=== PATIENT | male | born 1960 | race Hispanic/Latino ===

== ENCOUNTER 2018-08-15 17:46 | Inpatient (IN) | payer BC ==
--- NOTE | 2018-08-15 18:27 | Emergency Department Report ---
Blank Doc - Documentation Documentation: pt states he was sent by PCP, Dr. Pedrito Sheehan states he is having fluid retention in the scrotum and the BLE edema that worsened in the last few days +testicular pain PMHx DM, HTN, macular degeneration non smoker non drinker no drug use
[2018-08-15 19:17] LABS: Basophils # (Auto) 0.1 K/mm3 (0.0-0.1); Basophils % (Auto) 1.1 % (0.0-1.8); Eosinophils # (Auto) 0.3 K/mm3 (0.0-0.4); Eosinophils % (Auto) 5.9 % (0.0-4.3); Hematocrit 30.1 % (35.5-45.6); Hemoglobin 9.8 gm/dl (11.8-15.2); Lymphocytes # (Auto) 1.2 K/mm3 (1.2-5.4); Lymphocytes % (Auto) 22.9 % (13.4-35.0); Mean Corpuscular HGB Conc 32 % (32-34); Mean Corpuscular Volume 84 fl (84-94); Monocytes # (Auto) 0.6 K/mm3 (0.0-0.8); Monocytes % (Auto) 10.7 % (0.0-7.3); Platelet Count 143 K/mm3 (140-440); Red Blood Count 3.61 M/mm3 (3.65-5.03); Red Cell Distribution Width 16.8 % (13.2-15.2)
[2018-08-15 19:41] LABS: Color,Urine Yellow (Yellow)
[2018-08-15 19:42] LABS: Bilirubin,Urine NEG (Negative); Blood,Urine NEG (Negative); Mucus,Urine FEW /HPF; Urobilinogen,Urine < 2.0 mg/dL (<2.0)
[2018-08-15 19:44] LABS: Albumin 3.2 g/dL (3.9-5)
[2018-08-15 19:51] LABS: Protein,Urine >500 mg/dL (Negative)
--- NOTE | 2018-08-15 20:23 | Ultrasound Report ---
PROCEDURE: US TESTICULAR DOPPLER COMP TECHNIQUE: Real-time alvarez-scale and color flow Doppler sonography in multiple planes of the scrotum, testicles, and epididymes was performed. Velocity spectral waveform analysis and color Doppler imagi ng of the arterial inflow and venous outflow of the testicles was performed with image documentation. HISTORY: scrotal swelling and pain COMPARISONS: None . FINDINGS: RIGHT TESTICLE: Size: 4.2 x 3.0 x 2.8 cm . Appearance: Normal size and echotexture . Arterial blood flow: Normal spectral waveforms, flow velocities and color flow images.. Venous blood flow: Normal spectral waveforms and color flow images. Right epididymis: Normal size and echotexture . Hydrocele: None . LEFT TESTICLE Size: 4.3 x 2.3 x 3.1 cm . Appearance: Normal size and echotexture . Arterial blood flow: Normal spectral waveforms, flow velocities and color flow images.. Venous blood flow: Normal spectral waveforms and color flow images. Left epididymis: Normal size and echotexture . Hydrocele: None . There is diffuse thickening of scrotal skin and subcutaneous tissues. A focal fluid collection is not identified. IMPRESSION: Thickened scrotal lin. No testicular abnormality.. This document is electronically signed by Eliezer Brand MD., Aug 15 2018 08:21:24 PM ET
--- NOTE | 2018-08-15 21:14 | Emergency Department Report ---
ED Shortness of Breath HPI - General Chief Complaint: Medical Clearance Stated Complaint: DIABETIC/WATER RETENTION Time Seen by Provider: 08/15/18 21:01 Source: patient Mode of arrival: Ambulatory Limitations: No Limitations - History of Present Illness Initial Comments: Patient is a 58-year-old male presents to emergency room with complaints of shortness of breath and dyspnea on exertion. Patient states he feels like he's feeling of fluids. Patient states he is now swelling from his entire legs all around to his abdomen. Patient states his primary care sent him here. Patient states his symptoms are worse with exertion and better with rest. Patient states his legs are chronically swollen but now they are worsening. Patient denies chest pain and chest pressure. She denies fever chills. Patient denies headache. Patient denies blurry vision. MD Complaint: shortness of breath -: Sudden - Related Data Home Medications Medication Instructions Recorded Confirmed Last Taken Acetaminophen [Acetaminophen ER] 650 mg PO Q8HR PRN 08/16/18 08/16/18 Unknown Amlodipine Besylate/Benazepril 1 each PO QDAY 08/16/18 08/16/18 Unknown [Lotrel 10-40 mg] AtorvaSTATin [Lipitor] 40 mg PO QHS 08/16/18 08/16/18 Unknown Cholecalciferol (Vitamin D3) 5,000 unit PO DAILY 08/16/18 08/16/18 Unknown [Vitamin D3 5,000 UNIT] Doxylamine Succinate [Unisom] 25 mg PO QHS 08/16/18 08/16/18 Unknown Gabapentin [Neurontin] 300 mg PO QHS 08/16/18 08/16/18 Unknown Insulin Regular, Human [Humulin R 90 unit SQ BID 08/16/18 08/16/18 Unknown U-500 Kwikpen] Loratadine [Claritin] 10 mg PO DAILY PRN 08/16/18 08/16/18 Unknown Melatonin [Melatonin 3MG TAB] 3 mg PO QHS 08/16/18 08/16/18 Unknown Niacin [Niacor] 500 mg PO DAILY 08/16/18 08/16/18 Unknown Omeprazole 20 mg PO DAILY PRN 08/16/18 08/16/18 Unknown Triamcinolone Acetonide [Nasacort 10.8 ml NS DAILY 08/16/18 08/16/18 Unknown SPRAY] Allergies Allergy/AdvReac Type Severity Reaction Status Date / Time canagliflozin [From Invokana] Allergy Unknown Verified 08/15/18 17:49 IV CONTRAST DYE Allergy Unknown Uncoded 08/15/18 17:49 ED Review of Systems ROS: Stated complaint: DIABETIC/WATER RETENTION Other details as noted in HPI Constitutional: denies: chills, fever Eyes: denies: eye pain, eye discharge, vision change ENT: denies: ear pain, throat pain Respiratory: shortness of breath. denies: cough, wheezing Cardiovascular: dyspnea on exertion. denies: chest pain, palpitations Endocrine: no symptoms reported Gastrointestinal: denies: abdominal pain, nausea, diarrhea Genitourinary: denies: urgency, dysuria Musculoskeletal: denies: back pain, joint swelling, arthralgia Skin: denies: rash, lesions Neurological: denies: headache, weakness, paresthesias Psychiatric: denies: anxiety, depression Hematological/Lymphatic: denies: easy bleeding, easy bruising ED Past Medical Hx - Past Medical History Previous Medical History?: Yes Hx Hypertension: Yes Hx Heart Attack/AMI: No Hx Congestive Heart Failure: No Hx Diabetes: Yes Hx Deep Vein Thrombosis: No Hx Pulmonary Embolism: No Hx Renal Disease: Yes (CKD3) Additional medical history: WATER RENTENTION - Surgical History Past Surgical History?: No - Family History Family history: no significant - Social History Smoking Status: Never Smoker Substance Use Type: None - Medications Home Medications: Home Medications Medication Instructions Recorded Confirmed Last Taken Type Acetaminophen [Acetaminophen ER] 650 mg PO Q8HR PRN 08/16/18 08/16/18 Unknown History Amlodipine Besylate/Benazepril 1 each PO QDAY 08/16/18 08/16/18 Unknown History [Lotrel 10-40 mg] AtorvaSTATin [Lipitor] 40 mg PO QHS 08/16/18 08/16/18 Unknown History Cholecalciferol (Vitamin D3) 5,000 unit PO DAILY 08/16/18 08/16/18 Unknown History [Vitamin D3 5,000 UNIT] Doxylamine Succinate [Unisom] 25 mg PO QHS 08/16/18 08/16/18 Unknown History Gabapentin [Neurontin] 300 mg PO QHS 08/16/18 08/16/18 Unknown History Insulin Regular, Human [Humulin R 90 unit SQ BID 08/16/18 08/16/18 Unknown History U-500 Kwikpen] Loratadine [Claritin] 10 mg PO DAILY PRN 08/16/18 08/16/18 Unknown History Melatonin [Melatonin 3MG TAB] 3 mg PO QHS 08/16/18 08/16/18 Unknown History Niacin [Niacor] 500 mg PO DAILY 08/16/18 08/16/18 Unknown History Omeprazole 20 mg PO DAILY PRN 08/16/18 08/16/18 Unknown History Triamcinolone Acetonide [Nasacort 10.8 ml NS DAILY 08/16/18 08/16/18 Unknown History SPRAY] ED Physical Exam - General Limitations: No Limitations General appearance: alert, in no apparent distress - Head Head exam: Present: atraumatic, normocephalic - Eye Eye exam: Present: normal appearance - ENT ENT exam: Present: mucous membranes moist - Neck Neck exam: Present: normal inspection - Respiratory Respiratory exam: Present: normal lung sounds bilaterally. Absent: respiratory distress, wheezes, rales, chest wall tenderness - Cardiovascular Cardiovascular Exam: Present: regular rate, normal rhythm. Absent: systolic murmur, diastolic murmur, rubs, gallop - GI/Abdominal GI/Abdominal exam: Present: soft, normal bowel sounds. Absent: distended, tenderness, guarding - Rectal Rectal exam: Present: deferred - Extremities Exam Extremities exam: Present: normal inspection (except for edema.), pedal edema ( peripheral edema extending all the way up to his lower abdomen and consistent with anasarca.) - Back Exam Back exam: Present: normal inspection - Neurological Exam Neurological exam: Present: alert, oriented X3 - Psychiatric Psychiatric exam: Present: normal affect, normal mood - Skin Skin exam: Present: warm, dry, intact, normal color. Absent: rash ED Course Vital Signs 08/15/18 08/15/18 08/15/18 18:23 21:16 21:30 Temperature 98.2 F Pulse Rate 92 H 79 76 Respiratory 16 17 20 Rate Blood Pressure 181/85 Blood Pressure 191/87 [Left] O2 Sat by Pulse 96 96 94 Oximetry 08/15/18 08/15/18 08/15/18 22:00 22:30 23:00 Temperature Pulse Rate 76 83 79 Respiratory 19 14 18 Rate Blood Pressure 192/100 213/100 170/74 Blood Pressure [Left] O2 Sat by Pulse 93 95 96 Oximetry 08/15/18 23:10 Temperature Pulse Rate Respiratory 18 Rate Blood Pressure Blood Pressure [Left] O2 Sat by Pulse 100 Oximetry - Reevaluation(s) Reevaluation #1: Discussed all results with patient. Patient will be admitted to the hospitalist service. Patient agrees to plan of care. 08/16/18 02:27 - Consultations Consultation #1: 08/16/18 02:27 Hospitalist consulted for admission. Hospitalist to admit patient. Hospitalist to assume care patient. ED Medical Decision Making - Lab Data Result diagrams: 08/15/18 18:54 08/15/18 18:54 - EKG Data -: EKG Interpreted by [facility] EKG shows normal: sinus rhythm, axis, intervals, QRS complexes, ST-T waves Rate: normal - Radiology Data Radiology results: report reviewed PROCEDURE: XR CHEST 1V AP TECHNIQUE: Chest radiograph single view. HISTORY: sob COMPARISONS: None . FINDINGS: Heart: Normal. Mediastinum/Vessels: Normal. Lungs/Pleural space: Left lower lung and left costophrenic angle are obscured by the cardiac shadow right lung and right pleural spaces are clear. Bony thorax: No acute osseous abnormality. Life support devices: None. IMPRESSION: Left lower lung and left costophrenic angle are obscured by the cardiac shadow. Any underlying infiltrates or left pleural effusion cannot be excluded. A two-view chest study is recommended whenever the patient's condition permits.. - Medical Decision Making Patient is a 58-year-old male transferred to shortness of breath dyspnea on exertion. Patient found to have an elevated d-dimer and CK 83 on labs. Patient also clinically anemic. For the elevated d-dimer patient is going to have a nuclear study. Patient's risk is low. Patient was admitted to the hospitalist service. Patient clinical findings consistent with new onset CHF and anasarca. Patient will require cardiology consult. - Differential Diagnosis CHF. Anasarca. HANSEN. SOB. CK 80 Critical Care Time: Yes Critical care attestation.: If time is entered above; I have spent that time in minutes in the direct care of this critically ill patient, excluding procedure time. Critical Care Time: 35 minutes ED Disposition Clinical Impression: SOB (shortness of breath), HANSEN (dyspnea on exertion), Anasarca, Elevated d- dimer, New onset of congestive heart failure, Essential hypertension CKD (chronic kidney disease) Qualifiers: Chronic kidney disease stage: unspecified stage Qualified Code(s): N18.9 - Zoology Professor roberto kidney disease, unspecified CHF (congestive heart failure) Qualifiers: Heart failure type: unspecified Heart failure chronicity: acute Qualified Code(s): I50.9 - Heart failure, unspecified Anemia Qualifiers: Anemia type: unspecified type Qualified Code(s): D64.9 - Anemia, unspecified Disposition: 09 OP ADMIT IP TO THIS HOSP Is pt being admited?: Yes Does the pt Need Aspirin: No Condition: Critical Instructions: Hypertension (ED) Time of Disposition: 02:27
--- NOTE | 2018-08-15 22:26 | XRay Report ---
PROCEDURE: XR CHEST 1V AP TECHNIQUE: Chest radiograph single view. HISTORY: sob COMPARISONS: None . FINDINGS: Heart: Normal. Mediastinum/Vessels: Normal. Lungs/Pleural space: Left lower lung and left costophrenic angle are obscured by the cardiac shadow right lung and right pleural spaces are clear. Bony thorax: No acute osseous abnormality. Life support devices: None. IMPRESSION: Left lower lung and left costophrenic angle are obscured by the cardiac shadow. Any unde rlying infiltrates or left pleural effusion cannot be excluded. A two-view chest study is recommended whenever the patient's condition permits.. This document is electronically signed by Eliezer Brand MD., Aug 15 2018 10:25:00 PM ET
[2018-08-16] MEDS ORDERED: LASIX IV ONE (02:26)
[2018-08-16] MEDS ORDERED: ZOFRAN IV PRN (03:07)
[2018-08-16] MEDS ORDERED: PROVENTIL IH PRN (03:07)
[2018-08-16] MEDS ORDERED: SODIUM CHLORIDE FLUSH SYRINGE 10 ML IV PRN (03:07)
[2018-08-16] MEDS ORDERED: XANAX PO PRN (03:07)
[2018-08-16] MEDS ORDERED: NITROSTAT SL PRN (03:07)
[2018-08-16] MEDS ORDERED: D50W (25GM) Syringe IV PRN (03:13)
--- NOTE | 2018-08-16 03:33 | History and Physical Report ---
<LANEY NEGRO - Last Filed: 08/16/18 03:34> History of Present Illness Date of examination: 08/16/18 Date of admission: 08/16/2018 Chief complaint: Dyspnea with exertion and bilateral lower extremity edema History of present illness: 58-year-old male with history of hypertension, diabetes, HLD, CKD stage III who presents to [facility] ED with c/o bilateral lower extremity swelling and shortness of breath. States that he feels like "fluid he has fluid building up" making it hard for him to breathe. According to patient's swelling started a few months ago and has progressively gotten worse over the past 3 days. The swelling is now includes abdomen, scrotum, and bilateral lower extremities.He attributes swelling to not taking by mouth Lasix because he was concerned about his chronic kidney disease. He c/o worsening dyspnea with activity for the past 3 days. Pt states that he is unable to walk more than 10 feet without becoming SOB and needing to take a rest to catch his breath. Pt has wound to Rt great toe, Rt calf and Lt heal. He goes to [place] [facility] wound care clinic every 2-3 weeks for evaluation and treatment. Admits abdominal swelling, scrotum edema, BLE edema, SOB with activity. Denies fever, cough, hemoptysis, hematemesis, nausea, vomiting, diarrhea, headache, and chest pain. Past History Past Medical History: diabetes, hypertension, other (CKD 3) Past Surgical History: No surgical history Social history: no significant social history Family history: no significant family history Medications and Allergies Allergies Allergy/AdvReac Type Severity Reaction Status Date / Time canagliflozin [From Invokana] Allergy Unknown Verified 08/15/18 17:49 IV CONTRAST DYE Allergy Unknown Uncoded 08/15/18 17:49 Home Medications Medication Instructions Recorded Confirmed Last Taken Type Acetaminophen [Acetaminophen ER] 650 mg PO Q8HR PRN 08/16/18 08/16/18 Unknown History Amlodipine Besylate/Benazepril 1 each PO QDAY 08/16/18 08/16/18 Unknown History [Lotrel 10-40 mg] AtorvaSTATin [Lipitor] 40 mg PO QHS 08/16/18 08/16/18 Unknown History Cholecalciferol (Vitamin D3) 5,000 unit PO DAILY 08/16/18 08/16/18 Unknown History [Vitamin D3 5,000 UNIT] Doxylamine Succinate [Unisom] 25 mg PO QHS 08/16/18 08/16/18 Unknown History Gabapentin [Neurontin] 300 mg PO QHS 08/16/18 08/16/18 Unknown History Insulin Regular, Human [Humulin R 90 unit SQ BID 08/16/18 08/16/18 Unknown History U-500 Kwikpen] Loratadine [Claritin] 10 mg PO DAILY PRN 08/16/18 08/16/18 Unknown History Melatonin [Melatonin 3MG TAB] 3 mg PO QHS 08/16/18 08/16/18 Unknown History Niacin [Niacor] 500 mg PO DAILY 08/16/18 08/16/18 Unknown History Omeprazole 20 mg PO DAILY PRN 08/16/18 08/16/18 Unknown History Triamcinolone Acetonide [Nasacort 10.8 ml NS DAILY 08/16/18 08/16/18 Unknown History SPRAY] Active Meds: Active Medications Acetaminophen (Tylenol) 650 mg PO Q4H PRN PRN Reason: Pain MILD(1-3)/Fever >100.5/FRAIRE Albuterol (Proventil) 2.5 mg IH Q4HRT PRN PRN Reason: Shortness Of Breath Alprazolam (Xanax) 0.125 mg PO Q8H PRN PRN Reason: Agitation Aspirin (Baby Aspirin) 81 mg PO QDAY [facility] Atorvastatin Calcium (Lipitor) 40 mg PO QHS [facility] Clopidogrel Bisulfate (Plavix) 75 mg PO QDAY [facility] Dextrose (D50w (25gm) Syringe) 50 ml IV PRN PRN PRN Reason: Hypoglycemia Docusate Sodium (Colace) 100 mg PO BID [facility] Furosemide (Lasix) 40 mg IV BID@0600,1800 [facility] Gabapentin (Neurontin) 300 mg PO QHS [facility] Heparin Sodium (Porcine) (Heparin) 5,000 unit SUB-Q Q12HR [facility] Insulin Human Lispro (Humalog) 0 unit SUB-Q ACHS [facility]; Protocol Insulin Human Regular (Humulin R) 5 units SUB-Q AC [facility] Miscellaneous Medication (Amlodipine Besylate/Benazepril [Lotrel 10-40 Mg]) 1 each PO QDAY [facility] Miscellaneous Medication (Cholecalciferol (Vitamin D3) [Vitamin D3 5,000 Unit]) 5,000 unit PO DAILY [facility] Nitroglycerin (Nitrostat) 0.4 mg SL .Q5MIN PRN PRN Reason: Chest Pain Ondansetron HCl (Zofran) 4 mg IV Q8H PRN PRN Reason: Nausea And Vomiting Oxycodone/Acetaminophen (Percocet 5/325) 1 tab PO Q6H PRN PRN Reason: Pain, Moderate (4-6) Potassium Chloride (K-Dur) 40 meq PO BID [facility] Sodium Chloride (Sodium Chloride Flush Syringe 10 Ml) 10 ml IV BID [facility] Sodium Chloride (Sodium Chloride Flush Syringe 10 Ml) 10 ml IV PRN PRN PRN Reason: LINE FLUSH Review of Systems All systems: negative (reviewed and no additional remarkable complaints except as noted below) Cardiovascular: shortness of breath, leg edema (bilateral leg ) Respiratory: dyspnea on exertion Genitourinary Male: other (scrotal edema) Exam - Physical Exam Narrative exam: Physical exam General appearance: Present: No acute distress, obese, pleasant, middle-aged adult male, oriented 3 - EENT Eyes: Present: PERRL, EOM intact ENT: hearing intact, normal dentition - Neck Neck: Present: supple, normal ROM - Respiratory Respiratory effort: Labored on supplemental oxygen Respiratory: Faint crackles in bases - Cardiovascular Heart rate: 76 (bpm) Rhythm: Sinus rhythm regular Heart Sounds: Present: S1 & S2. Absent: rub, click - Extremities Extremities: no ischemia, pulses intact, abnormal (bilateral lower extremity pitting edema) - Peripheral Assessment Peripheral Pulses: within normal limits - Abdominal General gastrointestinal: Obese, pannus, soft, non-tender, normal bowel sounds Genitourinary - Scrotal edema - Integumentary Integumentary: Present: Discoloration to bilateral lower extremity, right great toe, right calf, left heel wound, warm, dry - Musculoskeletal Musculoskeletal: generalized weakness - Psychiatric Psychiatric: Slightly anxious, cooperative - Constitutional Vitals: Temp Pulse Resp BP Pulse Ox 98.2 F 88 17 177/83 99 08/15/18 18:23 08/16/18 02:30 08/16/18 02:30 08/16/18 02:30 08/16/18 02:30 Results - Labs CBC & Chem 7: 08/15/18 18:54 08/15/18 18:54 Labs: Laboratory Last Values WBC 5.4 K/mm3 (4.5-11.0) 08/15/18 18:54 RBC 3.61 M/mm3 (3.65-5.03) L 08/15/18 18:54 Hgb 9.8 gm/dl (11.8-15.2) L 08/15/18 18:54 Hct 30.1 % (35.5-45.6) L 08/15/18 18:54 MCV 84 fl (84-94) 08/15/18 18:54 MCH 27 pg (28-32) L 08/15/18 18:54 MCHC 32 % (32-34) 08/15/18 18:54 RDW 16.8 % (13.2-15.2) H 08/15/18 18:54 Plt Count 143 K/mm3 (140-440) 08/15/18 18:54 Lymph % (Auto) 22.9 % (13.4-35.0) 08/15/18 18:54 [place] % (Auto) 10.7 % (0.0-7.3) H 08/15/18 18:54 Eos % (Auto) 5.9 % (0.0-4.3) H 08/15/18 18:54 Baso % (Auto) 1.1 % (0.0-1.8) 08/15/18 18:54 Lymph # 1.2 K/mm3 (1.2-5.4) 08/15/18 18:54 [place] # 0.6 K/mm3 (0.0-0.8) 08/15/18 18:54 Eos # 0.3 K/mm3 (0.0-0.4) 08/15/18 18:54 Baso # 0.1 K/mm3 (0.0-0.1) 08/15/18 18:54 Seg Neutrophils % 59.4 % (40.0-70.0) 08/15/18 18:54 Seg Neutrophils # 3.2 K/mm3 (1.8-7.7) 08/15/18 18:54 463.24 ng/mlDDU (0-234) H 08/15/18 21:24 Sodium 144 mmol/L (137-145) 08/15/18 18:54 Potassium 4.3 mmol/L (3.6-5.0) 08/15/18 18:54 Chloride 107.7 mmol/L (98-107) H 08/15/18 18:54 Carbon Dioxide 23 mmol/L (22-30) 08/15/18 18:54 18 mmol/L 08/15/18 18:54 BUN 25 mg/dL (9-20) H 08/15/18 18:54 2.5 mg/dL (0.8-1.5) H 08/15/18 18:54 Estimated GFR 27 ml/min 08/15/18 18:54 10 % 08/15/18 18:54 Glucose 159 mg/dL (75-100) H 08/15/18 18:54 POC Glucose 124 (70-105) H 08/15/18 18:02 Calcium 9.0 mg/dL (8.4-10.2) 08/15/18 18:54 0.40 mg/dL (0.1-1.2) 08/15/18 18:54 AST 25 units/L (5-40) 08/15/18 18:54 ALT 15 units/L (7-56) 08/15/18 18:54 74 units/L (35-129) 08/15/18 18:54 340 units/L (55-170) H 08/15/18 21:24 CK-MB (CK-2) 5.0 ng/mL (0.0-4.0) H 08/15/18 21:24 CK-MB (CK-2) Rel Index 1.4 (0-4) 08/15/18 21:24 0.026 ng/mL (0.00-0.029) 08/15/18 21:24 NT-Pro-B Natriuret Pep 850.0 pg/mL (0-900) 08/15/18 18:54 6.7 g/dL (6.3-8.2) 08/15/18 18:54 3.2 g/dL (3.9-5) L 08/15/18 18:54 0.9 % 08/15/18 18:54 Yellow (Yellow) 08/15/18 18:47 Clear (Clear) 08/15/18 18:47 6.0 (5.0-7.0) 08/15/18 18:47 Ur Specific [place] 1.014 (1.003-1.030) 08/15/18 18:47 >500 mg/dL (Negative) 08/15/18 18:47 Neg mg/dL (Negative) 08/15/18 18:47 Neg mg/dL (Negative) 08/15/18 18:47 Neg (Negative) 08/15/18 18:47 Neg (Negative) 08/15/18 18:47 Neg (Negative) 08/15/18 18:47 < 2.0 mg/dL (<2.0) 08/15/18 18:47 Ur Leukocyte Esterase Neg (Negative) 08/15/18 18:47 1.0 /HPF (0.0-6.0) 08/15/18 18:47 1.0 /HPF (0.0-6.0) 08/15/18 18:47 U Epithel Cells (Auto) 1.0 /HPF (0-13.0) 08/15/18 18:47 Few /HPF 08/15/18 18:47 - Imaging and Cardiology EKG: image reviewed (sinus rhythm at 76 bpm) Chest x-ray: pending (Repeat 2v CXR pending), report reviewed (Initial CXR Left lower lung and left costophrenic angle are obscured by the cardiac shadow. Any underlying infiltrates or left pleural effusion cannot be excluded), image reviewed Imaging and Cardiology: Testicular ultrasound: Impression: Thickened scrotal lin. No testicular abnormality. Assessment and Plan Assessment and plan: 58-year-old male with history of hypertension, diabetes, HLD, CKD stage III who presents to [facility] ED with c/o bilateral lower extremity swelling and shortness of breath. Pt scrotum is swollen obstructing view of his penis. The swelling goes from abdomen to BLE. Currently patient is on 2L supplemental O2 with saturation of 94%. D-dimer slightly elevated at 463.24. CK-MB elevated at 5.0; troponin negative. Initial CXR was inconclusive; will order 2V CXR for further evaluation. Pt will be admitted to Telemetry unit. Cardiology consulted. Suspicion of new onset Acute CHF Rule out PE Volume overload Anasarca- likely multifactorial to CHF and volume overload CKD3 Hypertensive urgency Hypertension DM HLD Malnutrition mild to moderate Plan: Continue supportive care Continuous telemetry monitoring Repeat 2V CXR pending VQ scan pending Echo pending Cardiology consult pending Start ASA, and Plavix Monitor BP Resume home antihypertensive meds: Norvasc 10mg, lisinopril 40 mg daily IV hydralazine and when necessary POC BG monitoring SSI and scheduled pre-meal coverage HbgA1c pending Monitor BUN/Cr; may consider Nephrology consult if worsening Lasix 40mg BID Resume gabapentin 300 mg nightly Resume Lipitor 40 mg nightly Albuterol when necessary for SOB Continue and wean as tolerated Wound Care consult pending Dietitian consult pending DVT PPX on Heparin Advance Directives: No VTE prophylaxis?: Chemical Plan of care discussed with patient/family: Yes <TIM DÍAZ - Last Filed: 08/27/18 04:35> History of Present Illness Date of admission: 08/16/18 03:07 Medications and Allergies Active Meds: Active Medications Acetaminophen (Tylenol) 650 mg PO Q4H PRN PRN Reason: Pain MILD(1-3)/Fever >100.5/FRAIRE Albuterol (Proventil) 2.5 mg IH Q4HRT PRN PRN Reason: Shortness Of Breath Aspirin (Baby Aspirin) 81 mg PO QDAY [facility] Atorvastatin Calcium (Lipitor) 40 mg PO QHS [facility] Carvedilol (Coreg) 3.125 mg PO BID [facility] Cholecalciferol (Vitamin D3) 5,000 unit PO DAILY [facility] Clopidogrel Bisulfate (Plavix) 75 mg PO QDAY [facility] Dextrose (D50w (25gm) Syringe) 50 ml IV PRN PRN PRN Reason: Hypoglycemia Docusate Sodium (Colace) 100 mg PO BID [facility] Furosemide (Lasix) 40 mg IV BID@0600,1800 [facility] Gabapentin (Neurontin) 300 mg PO QHS [facility] Heparin Sodium (Porcine) (Heparin) 5,000 unit SUB-Q Q12HR [facility] Insulin Human Lispro (Humalog) 0 unit SUB-Q ACHS [facility]; Protocol Insulin Human Regular (Humulin R) 5 units SUB-Q AC [facility] Nitroglycerin (Nitrostat) 0.4 mg SL .Q5MIN PRN PRN Reason: Chest Pain Ondansetron HCl (Zofran) 4 mg IV Q8H PRN PRN Reason: Nausea And Vomiting Oxycodone/Acetaminophen (Percocet 5/325) 1 tab PO Q6H PRN PRN Reason: Pain, Moderate (4-6) Potassium Chloride (K-Dur) 40 meq PO BID [facility] Sodium Chloride (Sodium Chloride Flush Syringe 10 Ml) 10 ml IV BID [facility] Sodium Chloride (Sodium Chloride Flush Syringe 10 Ml) 10 ml IV PRN PRN PRN Reason: LINE FLUSH Exam - Constitutional Vitals: Temp Pulse Resp BP Pulse Ox 98.2 F 88 17 177/83 99 08/15/18 18:23 08/16/18 02:30 08/16/18 02:30 08/16/18 02:30 08/16/18 02:30 Results - Labs CBC & Chem 7: 08/25/18 04:43 08/26/18 04:56 Labs: Laboratory Last Values WBC 5.4 K/mm3 (4.5-11.0) 08/15/18 18:54 RBC 3.61 M/mm3 (3.65-5.03) L 08/15/18 18:54 Hgb 9.8 gm/dl (11.8-15.2) L 08/15/18 18:54 Hct 30.1 % (35.5-45.6) L 08/15/18 18:54 MCV 84 fl (84-94) 08/15/18 18:54 MCH 27 pg (28-32) L 08/15/18 18:54 MCHC 32 % (32-34) 08/15/18 18:54 RDW 16.8 % (13.2-15.2) H 08/15/18 18:54 Plt Count 143 K/mm3 (140-440) 08/15/18 18:54 Lymph % (Auto) 22.9 % (13.4-35.0) 08/15/18 18:54 [place] % (Auto) 10.7 % (0.0-7.3) H 08/15/18 18:54 Eos % (Auto) 5.9 % (0.0-4.3) H 08/15/18 18:54 Baso % (Auto) 1.1 % (0.0-1.8) 08/15/18 18:54 Lymph # 1.2 K/mm3 (1.2-5.4) 08/15/18 18:54 [place] # 0.6 K/mm3 (0.0-0.8) 08/15/18 18:54 Eos # 0.3 K/mm3 (0.0-0.4) 08/15/18 18:54 Baso # 0.1 K/mm3 (0.0-0.1) 08/15/18 18:54 Seg Neutrophils % 59.4 % (40.0-70.0) 08/15/18 18:54 Seg Neutrophils # 3.2 K/mm3 (1.8-7.7) 08/15/18 18:54 463.24 ng/mlDDU (0-234) H 08/15/18 21:24 Sodium 144 mmol/L (137-145) 08/15/18 18:54 Potassium 4.3 mmol/L (3.6-5.0) 08/15/18 18:54 Chloride 107.7 mmol/L (98-107) H 08/15/18 18:54 Carbon Dioxide 23 mmol/L (22-30) 08/15/18 18:54 18 mmol/L 08/15/18 18:54 BUN 25 mg/dL (9-20) H 08/15/18 18:54 2.5 mg/dL (0.8-1.5) H 08/15/18 18:54 Estimated GFR 27 ml/min 08/15/18 18:54 10 % 08/15/18 18:54 Glucose 159 mg/dL (75-100) H 08/15/18 18:54 POC Glucose 124 (70-105) H 08/15/18 18:02 7.4 % (4-6) H 08/16/18 03:37 Calcium 9.0 mg/dL (8.4-10.2) 08/15/18 18:54 0.40 mg/dL (0.1-1.2) 08/15/18 18:54 AST 25 units/L (5-40) 08/15/18 18:54 ALT 15 units/L (7-56) 08/15/18 18:54 74 units/L (35-129) 08/15/18 18:54 340 units/L (55-170) H 08/15/18 21:24 CK-MB (CK-2) 5.0 ng/mL (0.0-4.0) H 08/15/18 21:24 CK-MB (CK-2) Rel Index 1.4 (0-4) 08/15/18 21:24 0.026 ng/mL (0.00-0.029) 08/15/18 21:24 NT-Pro-B Natriuret Pep 850.0 pg/mL (0-900) 08/15/18 18:54 6.7 g/dL (6.3-8.2) 08/15/18 18:54 3.2 g/dL (3.9-5) L 08/15/18 18:54 0.9 % 08/15/18 18:54 Yellow (Yellow) 08/15/18 18:47 Clear (Clear) 08/15/18 18:47 6.0 (5.0-7.0) 08/15/18 18:47 Ur Specific [place] 1.014 (1.003-1.030) 08/15/18 18:47 >500 mg/dL (Negative) 08/15/18 18:47 Neg mg/dL (Negative) 08/15/18 18:47 Neg mg/dL (Negative) 08/15/18 18:47 Neg (Negative) 08/15/18 18:47 Neg (Negative) 08/15/18 18:47 Neg (Negative) 08/15/18 18:47 < 2.0 mg/dL (<2.0) 08/15/18 18:47 Ur Leukocyte Esterase Neg (Negative) 08/15/18 18:47 1.0 /HPF (0.0-6.0) 08/15/18 18:47 1.0 /HPF (0.0-6.0) 08/15/18 18:47 U Epithel Cells (Auto) 1.0 /HPF (0-13.0) 08/15/18 18:47 Few /HPF 08/15/18 18:47 Assessment and Plan Assessment and plan: 58 year old man with history of diabetes, hypertension, hyperlipidemia, obesity, lymphedema, CKD, chronic lower extremity wounds comes to the ER with complaints of worsening leg edema, shortness of breath, HANSEN, PND. he stopped taking his lasix because his kidney function was declining. He also states his scrotum and thighs and belly is swollen. Denies chest pain. Agree with plan as stated above except, hold ACEI, plavix. Check cardiac enzymes, start BB.
--- NOTE | 2018-08-16 04:09 | XRay Report ---
PROCEDURE: XR CHEST ROUTINE 2V TECHNIQUE: PA and lateral chest radiographs were obtained. HISTORY: SOB COMPARISONS: None. FINDINGS: Heart: Normal. Mediastinum/Vessels: Normal. Lungs/Pleural space: Normal. Bony thorax: No acute osseous abnormality. IMPRESSION: Normal examination. This document is electronically signed by Ivelisse Darden DO., Aug 16 2018 04:07:37 AM ET
[2018-08-16] MEDS ORDERED: LASIX IV SCH (06:00)
[2018-08-16 06:06] LABS: Chol/HDL Ratio 3.97 %
[2018-08-16] MEDS: HumaLOG SUB-Q SCH ×4 (07:12→22:20)
[2018-08-16] MEDS: HumuLIN R SUB-Q SCH ×3 (07:12→17:56)
[2018-08-16] MEDS ORDERED: CHOLECALCIFEROL 5000 UNIT PO SCH (10:00)
[2018-08-16] MEDS ORDERED: K-DUR PO SCH (10:00)
[2018-08-16] MEDS ORDERED: AMLODIPINE BESYLATE PO SCH (10:00)
[2018-08-16] MEDS ORDERED: PLAVIX PO SCH (10:00)
[2018-08-16] MEDS ORDERED: BENAZEPRIL PO SCH (10:00)
[2018-08-16] MEDS ORDERED: ZESTRIL PO SCH (10:00)
[2018-08-16] MEDS ORDERED: NORVASC PO SCH (10:00)
--- NOTE | 2018-08-16 10:38 | Consultation ---
History of Present Illness Consult date: 08/16/18 Requesting physician: EMERSON CONNOLLY Consult reason: congestive heart failure History of present illness: 58-year-old male with morbid obesity follows in the [place] clinic for wound care has chronic renal insufficiency hypertension has not been on Lasix for over a month concerned about his kidneys even though as per [place] nephrology may take Lasix patient is having shortness of breath with minimal exertion normally patient states he can walk up by 100 feet with scrotal edema with edema in his legs denies any chest pain nausea vomiting or syncope received Lasix in the emergency room mildly improved Past History Past Medical History: diabetes, hypertension, hyperlipidemia, other (CKD 3) Past Surgical History: No surgical history Social history: no significant social history Family history: no significant family history Medications and Allergies Allergies Allergy/AdvReac Type Severity Reaction Status Date / Time canagliflozin [From Invokana] Allergy Unknown Verified 08/15/18 17:49 IV CONTRAST DYE Allergy Unknown Uncoded 08/15/18 17:49 Home Medications Medication Instructions Recorded Confirmed Last Taken Type Acetaminophen [Acetaminophen ER] 650 mg PO Q8HR PRN 08/16/18 08/16/18 Unknown History Amlodipine Besylate/Benazepril 1 each PO QDAY 08/16/18 08/16/18 Unknown History [Lotrel 10-40 mg] AtorvaSTATin [Lipitor] 40 mg PO QHS 08/16/18 08/16/18 Unknown History Cholecalciferol (Vitamin D3) 5,000 unit PO DAILY 08/16/18 08/16/18 Unknown History [Vitamin D3 5,000 UNIT] Doxylamine Succinate [Unisom] 25 mg PO QHS 08/16/18 08/16/18 Unknown History Gabapentin [Neurontin] 300 mg PO QHS 08/16/18 08/16/18 Unknown History Insulin Regular, Human [Humulin R 90 unit SQ BID 08/16/18 08/16/18 Unknown History U-500 Kwikpen] Loratadine [Claritin] 10 mg PO DAILY PRN 08/16/18 08/16/18 Unknown History Melatonin [Melatonin 3MG TAB] 3 mg PO QHS 08/16/18 08/16/18 Unknown History Niacin [Niacor] 500 mg PO DAILY 08/16/18 08/16/18 Unknown History Omeprazole 20 mg PO DAILY PRN 08/16/18 08/16/18 Unknown History Triamcinolone Acetonide [Nasacort 10.8 ml NS DAILY 08/16/18 08/16/18 Unknown History SPRAY] Active Meds: Active Medications Acetaminophen (Tylenol) 650 mg PO Q4H PRN PRN Reason: Pain MILD(1-3)/Fever >100.5/FRAIRE Albuterol (Proventil) 2.5 mg IH Q4HRT PRN PRN Reason: Shortness Of Breath Aspirin (Baby Aspirin) 81 mg PO QDAY [facility] Atorvastatin Calcium (Lipitor) 40 mg PO QHS [facility] Carvedilol (Coreg) 3.125 mg PO BID [facility] Cholecalciferol (Vitamin D3) 5,000 unit PO DAILY [facility] Dextrose (D50w (25gm) Syringe) 50 ml IV PRN PRN PRN Reason: Hypoglycemia Docusate Sodium (Colace) 100 mg PO BID [facility] Furosemide (Lasix) 40 mg IV BID@0600,1800 [facility] Last Admin: 08/16/18 06:16 Dose: 40 mg Documented by: Gabapentin (Neurontin) 300 mg PO QHS [facility] Heparin Sodium (Porcine) (Heparin) 5,000 unit SUB-Q Q12HR [facility] Insulin Human Lispro (Humalog) 0 unit SUB-Q ACHS [facility]; Protocol Insulin Human Regular (Humulin R) 5 units SUB-Q AC [facility] Nitroglycerin (Nitrostat) 0.4 mg SL .Q5MIN PRN PRN Reason: Chest Pain Ondansetron HCl (Zofran) 4 mg IV Q8H PRN PRN Reason: Nausea And Vomiting Oxycodone/Acetaminophen (Percocet 5/325) 1 tab PO Q6H PRN PRN Reason: Pain, Moderate (4-6) Potassium Chloride (K-Dur) 40 meq PO BID [facility] Sodium Chloride (Sodium Chloride Flush Syringe 10 Ml) 10 ml IV BID [facility] Sodium Chloride (Sodium Chloride Flush Syringe 10 Ml) 10 ml IV PRN PRN PRN Reason: LINE FLUSH Last Admin: 08/16/18 06:17 Dose: 10 ml Documented by: Review of Systems All systems: negative (hpi) Physical Examination Vital Signs Temp Pulse Resp BP Pulse Ox 98.2 F 92 H 16 191/87 96 08/15/18 18:23 08/15/18 18:23 08/15/18 18:23 08/15/18 18:23 08/15/18 18:23 General appearance: no acute distress, well-nourished HEENT: Positive: PERRL, Mucus Membranes Moist Neck: Positive: neck supple, trachea midline Cardiac: Positive: Reg Rate and Rhythm, S1/S2. Negative: Audible Murmur Lungs: Positive: clear to auscultation, Normal Breath Sounds Neuro: Positive: Grossly Intact Abdomen: Positive: Soft, Active Bowel Sounds. Negative: Tender, Distended Male genitourinary: Positive: normal Skin: Positive: Clear Incision: Cardiac Cath Site Musculoskeletal: No Pain, Normal Range of Motion Extremities: Present: normal, edema, +1 Edema, Other (scrotal edema) Results 08/15/18 18:54 08/15/18 18:54 Cardiac Enzymes 08/15/18 08/15/18 Range/Units 18:54 21:24 AST 25 (5-40) units/L CK-MB (CK-2) 5.0 H (0.0-4.0) ng/mL Lipids 08/16/18 Range/Units 03:37 Triglycerides 140 (2-149) mg/dL Cholesterol 147 (50-199) mg/dL HDL Cholesterol 37 L (40-59) mg/dL Cholesterol/HDL Ratio 3.97 % CBC 08/15/18 Range/Units 18:54 WBC 5.4 (4.5-11.0) K/mm3 RBC 3.61 L (3.65-5.03) M/mm3 Hgb 9.8 L (11.8-15.2) gm/dl Hct 30.1 L (35.5-45.6) % Plt Count 143 (140-440) K/mm3 Lymph # 1.2 (1.2-5.4) K/mm3 [place] # 0.6 (0.0-0.8) K/mm3 Eos # 0.3 (0.0-0.4) K/mm3 Baso # 0.1 (0.0-0.1) K/mm3 Comprehensive Metabolic Panel 08/15/18 Range/Units 18:54 Sodium 144 (137-145) mmol/L Potassium 4.3 (3.6-5.0) mmol/L Chloride 107.7 H (98-107) mmol/L Carbon Dioxide 23 (22-30) mmol/L BUN 25 H (9-20) mg/dL Creatinine 2.5 H (0.8-1.5) mg/dL Glucose 159 H (75-100) mg/dL Calcium 9.0 (8.4-10.2) mg/dL AST 25 (5-40) units/L ALT 15 (7-56) units/L Alkaline Phosphatase 74 (35-129) units/L Total Protein 6.7 (6.3-8.2) g/dL Albumin 3.2 L (3.9-5) g/dL - Imaging and Cardiology Echo: report reviewed (2016 normal LV function.Positive bubble study PFO) EKG interpretations - Telemetry EKG Rhythm: Sinus Rhythm (nsr non specific st-t) Assessment and Plan will cont iv lasix, start hydralzine and hold vinnie / arb and follow up echo - Patient Problems (1) Anasarca Current Visit: Yes Status: Acute (2) CHF (congestive heart failure) Current Visit: Yes Status: Acute Qualifiers: Heart failure type: diastolic Heart failure chronicity: acute Qualified Code(s): I50.31 - Acute diastolic (congestive) heart failure (3) CKD (chronic kidney disease) Current Visit: Yes Status: Acute Qualifiers: Chronic kidney disease stage: stage 3 (moderate) Qualified Code(s): N18.3 - Chronic kidney disease, stage 3 (moderate) (4) HANSEN (dyspnea on exertion) Current Visit: Yes Status: Acute (5) Essential hypertension Current Visit: Yes Status: Chronic (6) Hyperlipemia, mixed Current Visit: Yes Status: Chronic (7) Morbid obesity Current Visit: Yes Status: Chronic
[2018-08-16] MEDS: VITAMIN D3 PO SCH (11:10)
[2018-08-16] MEDS: COREG PO SCH ×2 (11:11→22:20)
[2018-08-16] MEDS: COLACE PO SCH ×2 (11:11→22:19)
[2018-08-16] MEDS: BABY ASPIRIN PO SCH (11:11)
[2018-08-16] MEDS: HEPARIN SUB-Q SCH ×2 (11:12→22:20)
--- NOTE | 2018-08-16 11:44 | Consultation ---
History of Present Illness - Reason for Consult Consult date: 08/16/18 acute renal failure - History of Present Illness Mr Prabhakar is a 58-year-old male with history of hypertension, diabetes, HLD, CKD, Morbid obesity who has been admitted to the [facility] with bilateral lower extremity swelling and shortness of breath. Pt says his SHOB is worse with exertion. Pt denies fever, cough, N/V, diarrhea, chest pain. He denies NSAID use. ROS: As in HPI otherwise 12 point review of systems -ve Past History Past Medical History: diabetes, hypertension, hyperlipidemia, other (CKD 3) Past Surgical History: No surgical history Social history: no significant social history Family history: no significant family history Medications and Allergies Allergies Allergy/AdvReac Type Severity Reaction Status Date / Time canagliflozin [From Invokana] Allergy Unknown Verified 08/15/18 17:49 IV CONTRAST DYE Allergy Unknown Uncoded 08/15/18 17:49 Home Medications Medication Instructions Recorded Confirmed Last Taken Type Acetaminophen [Acetaminophen ER] 650 mg PO Q8HR PRN 08/16/18 08/16/18 Unknown History Amlodipine Besylate/Benazepril 1 each PO QDAY 08/16/18 08/16/18 Unknown History [Lotrel 10-40 mg] AtorvaSTATin [Lipitor] 40 mg PO QHS 08/16/18 08/16/18 Unknown History Cholecalciferol (Vitamin D3) 5,000 unit PO DAILY 08/16/18 08/16/18 Unknown History [Vitamin D3 5,000 UNIT] Doxylamine Succinate [Unisom] 25 mg PO QHS 08/16/18 08/16/18 Unknown History Gabapentin [Neurontin] 300 mg PO QHS 08/16/18 08/16/18 Unknown History Insulin Regular, Human [Humulin R 90 unit SQ BID 08/16/18 08/16/18 Unknown History U-500 Kwikpen] Loratadine [Claritin] 10 mg PO DAILY PRN 08/16/18 08/16/18 Unknown History Melatonin [Melatonin 3MG TAB] 3 mg PO QHS 08/16/18 08/16/18 Unknown History Niacin [Niacor] 500 mg PO DAILY 08/16/18 08/16/18 Unknown History Omeprazole 20 mg PO DAILY PRN 08/16/18 08/16/18 Unknown History Triamcinolone Acetonide [Nasacort 10.8 ml NS DAILY 08/16/18 08/16/18 Unknown History SPRAY] Active Meds: Active Medications Acetaminophen (Tylenol) 650 mg PO Q4H PRN PRN Reason: Pain MILD(1-3)/Fever >100.5/FRAIRE Albuterol (Proventil) 2.5 mg IH Q4HRT PRN PRN Reason: Shortness Of Breath Aspirin (Baby Aspirin) 81 mg PO QDAY [facility] Last Admin: 08/16/18 11:11 Dose: 81 mg Documented by: Atorvastatin Calcium (Lipitor) 40 mg PO QHS [facility] Carvedilol (Coreg) 3.125 mg PO BID [facility] Last Admin: 08/16/18 11:11 Dose: 3.125 mg Documented by: Cholecalciferol (Vitamin D3) 5,000 unit PO DAILY [facility] Last Admin: 08/16/18 11:10 Dose: 5,000 unit Documented by: Dextrose (D50w (25gm) Syringe) 50 ml IV PRN PRN PRN Reason: Hypoglycemia Docusate Sodium (Colace) 100 mg PO BID [facility] Last Admin: 08/16/18 11:11 Dose: 100 mg Documented by: Furosemide (Lasix) 40 mg IV BID@0600,1800 [facility] Last Admin: 08/16/18 06:16 Dose: 40 mg Documented by: Gabapentin (Neurontin) 300 mg PO QHS [facility] Heparin Sodium (Porcine) (Heparin) 5,000 unit SUB-Q Q12HR [facility] Last Admin: 08/16/18 11:12 Dose: 5,000 unit Documented by: Hydralazine HCl (Apresoline) 50 mg PO Q8HR [facility] Insulin Human Lispro (Humalog) 0 unit SUB-Q ACHS [facility]; Protocol Last Admin: 08/16/18 07:12 Dose: Not Given Documented by: Insulin Human Regular (Humulin R) 5 units SUB-Q [facility] Last Admin: 08/16/18 07:12 Dose: Not Given Documented by: Nitroglycerin (Nitrostat) 0.4 mg SL .Q5MIN PRN PRN Reason: Chest Pain Ondansetron HCl (Zofran) 4 mg IV Q8H PRN PRN Reason: Nausea And Vomiting Oxycodone/Acetaminophen (Percocet 5/325) 1 tab PO Q6H PRN PRN Reason: Pain, Moderate (4-6) Potassium Chloride (K-Dur) 40 meq PO BID [facility] Last Admin: 08/16/18 11:11 Dose: 40 meq Documented by: Sodium Chloride (Sodium Chloride Flush Syringe 10 Ml) 10 ml IV BID [facility] Sodium Chloride (Sodium Chloride Flush Syringe 10 Ml) 10 ml IV PRN PRN PRN Reason: LINE FLUSH Last Admin: 08/16/18 06:17 Dose: 10 ml Documented by: Exam - Vital Signs Vital signs: Vital Signs Temp Pulse Resp BP Pulse Ox 98.2 F 92 H 16 191/87 96 08/15/18 18:23 08/15/18 18:23 08/15/18 18:23 08/15/18 18:23 08/15/18 18:23 - Physical Exam Narrative exam: GE: AAOX3, Obese HEENT: PERRLA Neck: Supple Chest: Coarse BS BL CVS: RRR Abd: Soft/Obese, BS+ Ext: 2-3 BLE edema Psyche: Appropriate mood Results - Lab Results 08/15/18 18:54 08/15/18 18:54 Most recent lab results Calcium 9.0 mg/dL (8.4-10.2) 08/15/18 18:54 Assessment and Plan Acute kidney injury on CKD: Volume overload: Essential HTN: Diabetes Mellitus type 2: Anemia of chronic disease due to CKD: -Check Urine studies, Renal US -Hold RAAS inhibitors -Diurese with Lasix 40 mg QID IV -Renally dose all meds -Avoid Nephrotoxic meds -Strict I/Os -Titrate BP meds PRN to keep BP <130/80 -Check Iron Panel/Ferritin for ACD, start Epogen -Monitor closely Patrick Fonseca MD [phone]
--- NOTE | 2018-08-16 14:08 | Progress Note ---
Assessment and Plan Assessment and plan: Patient is a 58-year-old male with history of hypertension, diabetes, HLD, CKD stage III who presents to [facility] ED with c/o bilateral lower extremity swelling and shortness of breath. Pt scrotum is swollen obstructing view of his penis. Currently patient is on 2L supplemental O2 with saturation of 94%. D-dimer slightly elevated at 463.24. CK-MB elevated at 5.0; troponin negative. 2v CXR unremarkable normal proBNP BLE and scrotal edema, work up for CHF underway: ECHO pending, treat with Lasix 40mg BID New onset Acute diastolic dysfunction CHF: consult Cardiology Acute on Chronic kidney disease, stage 3: cr is 2.5 unable to get CTA, consult Nephrology Elevated D-Dimer, Rule out PE, V/Q pending Volume overload with significant Proteinuria, ?nephrotic syndrome; Nephrology consulted Anasarca- likely multifactorial to CHF and volume overload Hypertensive urgency DM type 2; ada and statin HLD Malnutrition mild to moderate Right toe pressure ulcer, poa, at least stage 3: local wound care done, consult Wound care for further management Morbid obese, bmi 51.4; membership counselor on lifestyle modification and weight reduction VQ scan pending, I have spoken with the nurse and she will let me know History Interval history: Patient was seen and examined. Follow-up on current diagnosis swelling. No overnight events reported to me. Patient denies any chest pain, nausea/vomiting or severe headaches. Imaging, nursing note, chart, labs and old chart reviewed. Discussed with patient. Hospitalist Physical - Physical exam Narrative exam: Gen: obese bmi 51.4, WDWN, NAD, Awake, Alert, Orientated HEENT: NCAT, EOMI, PERRL, OP Clear Neck: supple, no adenopathy, no thyromegaly, no JVD CVS/Heart: RRR, normal S1S2, pulses present bilaterally Chest/Lungs: CTA B, Symmetrical chest expansion, good air entry bilaterally GI/Abdomen: large pannus, soft, NTND, good bowel sounds, no guarding or rebound /Bladder: scrotal edema, no suprapubic tenderness, no CVA or paraspinal tenderness Extermity/Skin: ble edema, heel ulcer, there is an half dollar size ulcer under right big toe, see admission photos MSK: FROM x 4 Neuro: CN 2-12 grossly intact, no new focal deficits Psych: calm - Constitutional Vitals: Temp Pulse Resp BP Pulse Ox 98.2 F 80 20 170/78 97 08/16/18 05:42 08/16/18 12:39 08/16/18 13:35 08/16/18 05:42 08/16/18 13:35 General appearance: Present: no acute distress, well-nourished Results - Labs CBC & Chem 7: 08/15/18 18:54 08/15/18 18:54 Labs: Laboratory Last Values WBC 5.4 K/mm3 (4.5-11.0) 08/15/18 18:54 RBC 3.61 M/mm3 (3.65-5.03) L 08/15/18 18:54 Hgb 9.8 gm/dl (11.8-15.2) L 08/15/18 18:54 Hct 30.1 % (35.5-45.6) L 08/15/18 18:54 MCV 84 fl (84-94) 08/15/18 18:54 MCH 27 pg (28-32) L 08/15/18 18:54 MCHC 32 % (32-34) 08/15/18 18:54 RDW 16.8 % (13.2-15.2) H 08/15/18 18:54 Plt Count 143 K/mm3 (140-440) 08/15/18 18:54 Lymph % (Auto) 22.9 % (13.4-35.0) 08/15/18 18:54 [place] % (Auto) 10.7 % (0.0-7.3) H 08/15/18 18:54 Eos % (Auto) 5.9 % (0.0-4.3) H 08/15/18 18:54 Baso % (Auto) 1.1 % (0.0-1.8) 08/15/18 18:54 Lymph # 1.2 K/mm3 (1.2-5.4) 08/15/18 18:54 [place] # 0.6 K/mm3 (0.0-0.8) 08/15/18 18:54 Eos # 0.3 K/mm3 (0.0-0.4) 08/15/18 18:54 Baso # 0.1 K/mm3 (0.0-0.1) 08/15/18 18:54 Seg Neutrophils % 59.4 % (40.0-70.0) 08/15/18 18:54 Seg Neutrophils # 3.2 K/mm3 (1.8-7.7) 08/15/18 18:54 463.24 ng/mlDDU (0-234) H 08/15/18 21:24 Sodium 144 mmol/L (137-145) 08/15/18 18:54 Potassium 4.3 mmol/L (3.6-5.0) 08/15/18 18:54 Chloride 107.7 mmol/L (98-107) H 08/15/18 18:54 Carbon Dioxide 23 mmol/L (22-30) 08/15/18 18:54 18 mmol/L 08/15/18 18:54 BUN 25 mg/dL (9-20) H 08/15/18 18:54 2.5 mg/dL (0.8-1.5) H 08/15/18 18:54 Estimated GFR 27 ml/min 08/15/18 18:54 10 % 08/15/18 18:54 Glucose 159 mg/dL (75-100) H 08/15/18 18:54 POC Glucose 179 (70-105) H 08/16/18 12:01 7.4 % (4-6) H 08/16/18 03:37 Calcium 9.0 mg/dL (8.4-10.2) 08/15/18 18:54 0.40 mg/dL (0.1-1.2) 08/15/18 18:54 AST 25 units/L (5-40) 08/15/18 18:54 ALT 15 units/L (7-56) 08/15/18 18:54 74 units/L (35-129) 08/15/18 18:54 340 units/L (55-170) H 08/15/18 21:24 CK-MB (CK-2) 5.0 ng/mL (0.0-4.0) H 08/15/18 21:24 CK-MB (CK-2) Rel Index 1.4 (0-4) 08/15/18 21:24 0.026 ng/mL (0.00-0.029) 08/15/18 21:24 NT-Pro-B Natriuret Pep 850.0 pg/mL (0-900) 08/15/18 18:54 6.7 g/dL (6.3-8.2) 08/15/18 18:54 3.2 g/dL (3.9-5) L 08/15/18 18:54 0.9 % 08/15/18 18:54 Triglycerides 140 mg/dL (2-149) 08/16/18 03:37 Cholesterol 147 mg/dL (50-199) 08/16/18 03:37 88 mg/dL (50-130) 08/16/18 03:37 37 mg/dL (40-59) L 08/16/18 03:37 3.97 % 08/16/18 03:37 Yellow (Yellow) 08/15/18 18:47 Clear (Clear) 08/15/18 18:47 6.0 (5.0-7.0) 08/15/18 18:47 Ur Specific [place] 1.014 (1.003-1.030) 08/15/18 18:47 >500 mg/dL (Negative) 08/15/18 18:47 Neg mg/dL (Negative) 08/15/18 18:47 Neg mg/dL (Negative) 08/15/18 18:47 Neg (Negative) 08/15/18 18:47 Neg (Negative) 08/15/18 18:47 Neg (Negative) 08/15/18 18:47 < 2.0 mg/dL (<2.0) 08/15/18 18:47 Ur Leukocyte Esterase Neg (Negative) 08/15/18 18:47 1.0 /HPF (0.0-6.0) 08/15/18 18:47 1.0 /HPF (0.0-6.0) 08/15/18 18:47 U Epithel Cells (Auto) 1.0 /HPF (0-13.0) 08/15/18 18:47 Few /HPF 08/15/18 18:47 Active Medications - Current Medications Current Medications: Generic Name Dose Route Start Last Admin Trade Name Freq PRN Reason Stop Dose Admin Acetaminophen 650 mg 08/16/18 03:07 Tylenol PO Q4H PRN Pain MILD(1-3)/Fever >100.5/FRAIRE Albuterol 2.5 mg 08/16/18 03:07 Proventil IH Q4HRT PRN Shortness Of Breath Aspirin 81 mg 08/16/18 10:00 08/16/18 11:11 Baby Aspirin PO 81 mg QDAY [facility] Administration Atorvastatin Calcium 40 mg 08/16/18 22:00 Lipitor PO QHS [facility] Carvedilol 3.125 mg 08/16/18 10:00 08/16/18 11:11 Coreg PO 3.125 mg BID [facility] Administration Cholecalciferol 5,000 unit 08/16/18 10:00 08/16/18 11:10 Vitamin D3 PO 5,000 unit DAILY [facility] Administration Dextrose 50 ml 08/16/18 03:13 D50w (25gm) Syringe IV PRN PRN Hypoglycemia Docusate Sodium 100 mg 08/16/18 10:00 08/16/18 11:11 Colace PO 100 mg BID [facility] Administration Epoetin Keon 10,000 unit 08/18/18 13:00 Procrit SUB-Q MOWEFR [facility] Furosemide 40 mg 08/16/18 06:00 08/16/18 06:16 Lasix IV 40 mg BID@0600,1800 [facility] Administration Furosemide 40 mg 08/16/18 18:00 Lasix IV QID [facility] Gabapentin 300 mg 08/16/18 22:00 Neurontin PO QHS [facility] Heparin Sodium (Porcine) 5,000 unit 08/16/18 10:00 08/16/18 11:12 Heparin SUB-Q 5,000 unit Q12HR [facility] Administration Hydralazine HCl 50 mg 08/16/18 14:00 Apresoline PO Q8HR [facility] Insulin Human Lispro 0 unit 08/16/18 07:30 08/16/18 07:12 Humalog SUB-Q Not Given ACHS [facility] Protocol Insulin Human Regular 5 units 08/16/18 07:30 08/16/18 07:12 Humulin R SUB-Q Not Given AC [facility] Nitroglycerin 0.4 mg 08/16/18 03:07 Nitrostat SL .Q5MIN PRN Chest Pain Ondansetron HCl 4 mg 08/16/18 03:07 Zofran IV Q8H PRN Nausea And Vomiting Oxycodone/Acetaminophen 1 tab 08/16/18 03:07 Percocet 5/325 PO Q6H PRN Pain, Moderate (4-6) Sodium Chloride 10 ml 08/16/18 10:00 Sodium Chloride Flush Syringe 10 Ml IV BID [facility] Sodium Chloride 10 ml 08/16/18 03:07 08/16/18 06:17 Sodium Chloride Flush Syringe 10 Ml IV 10 ml PRN PRN Administration LINE FLUSH Nutrition/Malnutrition Assess - Dietary Evaluation Nutrition/Malnutrition Findings: Nutrition Notes Start: 08/16/18 09:25 Freq: Status: Active Protocol: Document 08/16/18 09:25 LP (Rec: 08/16/18 09:27 LP [id number]) Nutrition Notes Need for Assessment generated from: MD Order Initial or Follow up Brief Note Current Diagnosis CKD(stage I-IV),Diabetes Other Pertinent Diagnosis Fluid retention in scrotum and BLE edema, wounds on toe, heel and leg Current Diet Cardiac/consistent CHO Labs/Tests Lasix KDUR A1c 7.4 Subjective/Other Information Consult for malnutrition. Pt not in room at time of visit. Nutrition Intervention Follow-Up By: 08/19/18 Additional Comments Follow for assessment needs
[2018-08-16 15:06] LABS: Iron 30 ug/dL (49-181); Total Iron Binding Capacity 352 mcg/dL (250-450)
[2018-08-16] MEDS: PERCOCET 5/325 PO PRN (16:39)
--- NOTE | 2018-08-16 17:06 | Ultrasound Report ---
PROCEDURE: US RENAL BILAT TECHNIQUE: Transverse longitudinal sonograms obtained with alvarez scale sonography. HISTORY: tito COMPARISONS: None FINDINGS: Right kidney measures 9.1 x 4.1 x 4.5 cm. Cortex measures 0.8 cm. Increased echogenicity. No hydronep hrosis. Left kidney measures 10.9 x 4.5 x 5.5 cm. Cortex measures 1 cm. Increased echogenicity. No hydronephr osis. Limited visualization of the kidneys secondary to body habitus. IMPRESSION: Kidneys demonstrate cortical thinning and increased echogenicity compatible with chronic renal diseas e. No hydronephrosis. Limited visualization. If further evaluation warranted to exclude calculus or other pathology, CT sug gested.. This document is electronically signed by Ashkan Cloud MD., Aug 16 2018 05:04:48 PM ET
[2018-08-16] MEDS: APRESOLINE PO SCH ×2 (17:52→22:19)
[2018-08-16] MEDS: LASIX IV SCH ×2 (18:46→22:19)
[2018-08-16] MEDS: SODIUM CHLORIDE FLUSH SYRINGE 10 ML IV SCH ×2 (18:46→22:20)
[2018-08-16] MEDS: NEURONTIN PO SCH (22:19)
[2018-08-17 04:38] LABS: Bacteria,Urine 1+ /HPF (Negative); Bilirubin,Urine NEG (Negative); Blood,Urine NEG (Negative); Color,Urine Straw (Yellow); Urobilinogen,Urine < 2.0 mg/dL (<2.0); WBC,Urine < 1.0 /HPF (0.0-6.0)
[2018-08-17 04:45] LABS: Creatinine,Urine 22.4 mg/dL (0.1-20.0); Protein/Creatinine Ratio,Urine 3.53
[2018-08-17] MEDS: APRESOLINE PO SCH ×3 (05:59→21:50)
[2018-08-17 08:15] LABS: Basophils # (Auto) 0.1 K/mm3 (0.0-0.1); Basophils % (Auto) 1.1 % (0.0-1.8); Eosinophils # (Auto) 0.3 K/mm3 (0.0-0.4); Eosinophils % (Auto) 6.6 % (0.0-4.3); Hematocrit 31.5 % (35.5-45.6); Hemoglobin 10.3 gm/dl (11.8-15.2); Lymphocytes # (Auto) 1.3 K/mm3 (1.2-5.4); Lymphocytes % (Auto) 26.6 % (13.4-35.0); Mean Corpuscular HGB Conc 33 % (32-34); Mean Corpuscular Volume 82 fl (84-94); Monocytes # (Auto) 0.7 K/mm3 (0.0-0.8); Platelet Count 143 K/mm3 (140-440); Red Blood Count 3.83 M/mm3 (3.65-5.03); Red Cell Distribution Width 16.8 % (13.2-15.2)
[2018-08-17 08:37] LABS: Calcium 9.1 mg/dL (8.4-10.2)
[2018-08-17] MEDS: HumaLOG SUB-Q SCH ×4 (08:45→22:22)
[2018-08-17] MEDS: HumuLIN R SUB-Q SCH ×3 (08:45→17:30)
[2018-08-17] MEDS: COLACE PO SCH ×2 (09:09→21:50)
[2018-08-17] MEDS: BABY ASPIRIN PO SCH (09:09)
[2018-08-17] MEDS: VITAMIN D3 PO SCH (09:10)
[2018-08-17] MEDS: COREG PO SCH ×3 (09:10→21:49)
[2018-08-17] MEDS: HEPARIN SUB-Q SCH ×2 (09:10→21:50)
[2018-08-17] MEDS: SODIUM CHLORIDE FLUSH SYRINGE 10 ML IV SCH ×2 (09:11→21:51)
[2018-08-17] MEDS: PERCOCET 5/325 PO PRN ×2 (09:29→18:05)
--- NOTE | 2018-08-17 09:45 | Progress Note ---
Assessment and Plan Assessment and plan: Patient is a 58-year-old male with history of hypertension, diabetes, HLD, CKD stage III who presents to [facility] with c/o bilateral lower extremity swelling and shortness of breath. Pt scrotum is swollen obstructing view of his penis. Currently patient is on 2L supplemental O2 with saturation of 94%. D-dimer slightly elevated at 463.24. CK-MB elevated at 5.0; troponin negative. 2v CXR unremarkable normal proBNP BLE and scrotal edema, work up for CHF underway: ECHO pending, treat with Lasix 40mg BID New onset Acute diastolic dysfunction heart failure: consult Cardiology Acute on Chronic kidney disease, stage 3: cr is 2.5--->2.9 unable to get CTA, consulted Nephrology Elevated D-Dimer, Rule out PE, V/Q pending Volume overload with significant Proteinuria, ?nephrotic syndrome; Nephrology consulted Anasarca- likely multifactorial to CHF and volume overload Hypertensive urgency: iv antihypertensives as needed, low salt diet DM type 2; ada and ssi HLD: treat with statins Malnutrition mild to moderate: counseling done, consult [employer] Right toe pressure ulcer, poa, at least stage 3: local wound care done, consult Wound care for further management Morbid obese, bmi 51.3: relocation counselor on lifestyle modification and weight reduction VQ scan pending, I have spoken with the nurse and she will let me know==> v/q scan broken per review of the chart, will consult [employer] History Interval history: Patient was seen and examined. Follow-up on current diagnosis swelling. No overnight events reported to me. Patient denies any chest pain, nausea/vomiting or severe headaches. Imaging, nursing note, chart, labs and old chart reviewed. Discussed with patient. Hospitalist Physical - Physical exam Narrative exam: Gen: obese bmi 51.4, WDWN, NAD, Awake, Alert, Orientated HEENT: NCAT, EOMI, PERRL, OP Clear Neck: supple, no adenopathy, no thyromegaly, no JVD CVS/Heart: RRR, normal S1S2, pulses present bilaterally Chest/Lungs: CTA B, Symmetrical chest expansion, good air entry bilaterally GI/Abdomen: large pannus, soft, NTND, good bowel sounds, no guarding or rebound /Bladder: scrotal edema, no suprapubic tenderness, no CVA or paraspinal tenderness Extermity/Skin: ble edema, heel ulcer, there is an half dollar size ulcer under right big toe, see admission photos MSK: FROM x 4 Neuro: CN 2-12 grossly intact, no new focal deficits Psych: calm - Constitutional Vitals: Temp Pulse Resp BP Pulse Ox 98.9 F 80 20 144/63 93 08/17/18 08:45 08/17/18 09:10 08/17/18 04:51 08/17/18 09:10 08/17/18 08:39 General appearance: Present: no acute distress, well-nourished Results - Labs CBC & Chem 7: 08/17/18 07:30 08/17/18 07:30 Labs: Laboratory Last Values WBC 5.0 K/mm3 (4.5-11.0) 08/17/18 07:30 RBC 3.83 M/mm3 (3.65-5.03) 08/17/18 07:30 Hgb 10.3 gm/dl (11.8-15.2) L 08/17/18 07:30 Hct 31.5 % (35.5-45.6) L 08/17/18 07:30 MCV 82 fl (84-94) L 08/17/18 07:30 MCH 27 pg (28-32) L 08/17/18 07:30 MCHC 33 % (32-34) 08/17/18 07:30 RDW 16.8 % (13.2-15.2) H 08/17/18 07:30 Plt Count 143 K/mm3 (140-440) 08/17/18 07:30 Lymph % (Auto) 26.6 % (13.4-35.0) 08/17/18 07:30 [place] % (Auto) 14.0 % (0.0-7.3) H 08/17/18 07:30 Eos % (Auto) 6.6 % (0.0-4.3) H 08/17/18 07:30 Baso % (Auto) 1.1 % (0.0-1.8) 08/17/18 07:30 Lymph # 1.3 K/mm3 (1.2-5.4) 08/17/18 07:30 [place] # 0.7 K/mm3 (0.0-0.8) 08/17/18 07:30 Eos # 0.3 K/mm3 (0.0-0.4) 08/17/18 07:30 Baso # 0.1 K/mm3 (0.0-0.1) 08/17/18 07:30 Seg Neutrophils % 51.7 % (40.0-70.0) 08/17/18 07:30 Seg Neutrophils # 2.6 K/mm3 (1.8-7.7) 08/17/18 07:30 463.24 ng/mlDDU (0-234) H 08/15/18 21:24 Sodium 141 mmol/L (137-145) 08/17/18 07:30 Potassium 4.4 mmol/L (3.6-5.0) 08/17/18 07:30 Chloride 101.1 mmol/L (98-107) 08/17/18 07:30 Carbon Dioxide 25 mmol/L (22-30) 08/17/18 07:30 19 mmol/L 08/17/18 07:30 BUN 32 mg/dL (9-20) H 08/17/18 07:30 2.9 mg/dL (0.8-1.5) H 08/17/18 07:30 Estimated GFR 23 ml/min 08/17/18 07:30 11 % 08/17/18 07:30 Glucose 180 mg/dL (75-100) H 08/17/18 07:30 POC Glucose 169 (70-105) H 08/17/18 07:34 7.4 % (4-6) H 08/16/18 03:37 Calcium 9.1 mg/dL (8.4-10.2) 08/17/18 07:30 Iron 30 ug/dL (49-181) L 08/16/18 13:52 TIBC 352 mcg/dL (250-450) 08/16/18 13:52 0.40 mg/dL (0.1-1.2) 08/15/18 18:54 AST 25 units/L (5-40) 08/15/18 18:54 ALT 15 units/L (7-56) 08/15/18 18:54 74 units/L (35-129) 08/15/18 18:54 340 units/L (55-170) H 08/15/18 21:24 CK-MB (CK-2) 5.0 ng/mL (0.0-4.0) H 08/15/18 21:24 CK-MB (CK-2) Rel Index 1.4 (0-4) 08/15/18 21:24 0.026 ng/mL (0.00-0.029) 08/15/18 21:24 NT-Pro-B Natriuret Pep 850.0 pg/mL (0-900) 08/15/18 18:54 6.7 g/dL (6.3-8.2) 08/15/18 18:54 3.2 g/dL (3.9-5) L 08/15/18 18:54 0.9 % 08/15/18 18:54 Triglycerides 140 mg/dL (2-149) 08/16/18 03:37 Cholesterol 147 mg/dL (50-199) 08/16/18 03:37 88 mg/dL (50-130) 08/16/18 03:37 37 mg/dL (40-59) L 08/16/18 03:37 3.97 % 08/16/18 03:37 Straw (Yellow) 08/17/18 04:00 Clear (Clear) 08/17/18 04:00 7.0 (5.0-7.0) 08/17/18 04:00 Ur Specific [place] 1.006 (1.003-1.030) 08/17/18 04:00 100 mg/dl mg/dL (Negative) 08/17/18 04:00 Neg mg/dL (Negative) 08/17/18 04:00 Neg mg/dL (Negative) 08/17/18 04:00 Neg (Negative) 08/17/18 04:00 Neg (Negative) 08/17/18 04:00 Neg (Negative) 08/17/18 04:00 < 2.0 mg/dL (<2.0) 08/17/18 04:00 Ur Leukocyte Esterase Neg (Negative) 08/17/18 04:00 < 1.0 /HPF (0.0-6.0) 08/17/18 04:00 2.0 /HPF (0.0-6.0) 08/17/18 04:00 U Epithel Cells (Auto) 1.0 /HPF (0-13.0) 08/15/18 18:47 1+ /HPF (Negative) 08/17/18 04:00 Few /HPF 08/15/18 18:47 None seen (None Seen) 08/17/18 04:00 22.4 mg/dL (0.1-20.0) H 08/17/18 04:00 Protein/Creatinin Ratio 3.53 08/17/18 04:00 132 mmol/L 08/17/18 04:00 106 08/17/18 04:00 79 mg/dL (5-11.8) H 08/17/18 04:00 Active Medications - Current Medications Current Medications: Generic Name Dose Route Start Last Admin Trade Name Freq PRN Reason Stop Dose Admin Acetaminophen 650 mg 08/16/18 03:07 Tylenol PO Q4H PRN Pain MILD(1-3)/Fever >100.5/FRAIRE Albuterol 2.5 mg 08/16/18 03:07 Proventil IH Q4HRT PRN Shortness Of Breath Aspirin 81 mg 08/16/18 10:00 08/17/18 09:09 Baby Aspirin PO 81 mg QDAY [facility] Administration Atorvastatin Calcium 40 mg 08/16/18 22:00 08/16/18 22:19 Lipitor PO 40 mg QHS [facility] Administration Carvedilol 3.125 mg 08/16/18 10:00 08/17/18 09:10 Coreg PO 3.125 mg BID [facility] Administration Cholecalciferol 5,000 unit 08/16/18 10:00 08/17/18 09:10 Vitamin D3 PO 5,000 unit DAILY [facility] Administration Dextrose 50 ml 08/16/18 03:13 D50w (25gm) Syringe IV PRN PRN Hypoglycemia Docusate Sodium 100 mg 08/16/18 10:00 08/17/18 09:09 Colace PO 100 mg BID [facility] Administration Epoetin Keon 10,000 unit 08/18/18 13:00 Procrit SUB-Q MOWEFR [facility] Gabapentin 300 mg 08/16/18 22:00 08/16/18 22:19 Neurontin PO 300 mg QHS [facility] Administration Heparin Sodium (Porcine) 5,000 unit 08/16/18 10:00 08/17/18 09:10 Heparin SUB-Q 5,000 unit Q12HR [facility] Administration Hydralazine HCl 50 mg 08/16/18 14:00 08/17/18 05:59 Apresoline PO 50 mg Q8HR [facility] Administration Insulin Human Lispro 0 unit 08/16/18 07:30 08/17/18 08:45 Humalog SUB-Q 2 unit ACHS [facility] Administration Protocol Insulin Human Regular 5 units 08/16/18 07:30 08/17/18 08:45 Humulin R SUB-Q 5 units AC [facility] Administration Nitroglycerin 0.4 mg 08/16/18 03:07 Nitrostat SL .Q5MIN PRN Chest Pain Ondansetron HCl 4 mg 08/16/18 03:07 08/16/18 16:39 Zofran IV 4 mg Q8H PRN Administration Nausea And Vomiting Oxycodone/Acetaminophen 1 tab 08/16/18 03:07 08/17/18 09:29 Percocet 5/325 PO 1 tab Q6H PRN Administration Pain, Moderate (4-6) Sodium Chloride 10 ml 08/16/18 10:00 08/17/18 09:11 Sodium Chloride Flush Syringe 10 Ml IV 10 ml BID [facility] Administration Sodium Chloride 10 ml 08/16/18 03:07 08/16/18 06:17 Sodium Chloride Flush Syringe 10 Ml IV 10 ml PRN PRN Administration LINE FLUSH Nutrition/Malnutrition Assess - Dietary Evaluation Nutrition/Malnutrition Findings: Nutrition Notes Start: 08/16/18 09:25 Freq: Status: Active Protocol: Document 08/16/18 09:25 LP (Rec: 08/16/18 09:27 LP [id number]) Nutrition Notes Need for Assessment generated from: MD Order Initial or Follow up Brief Note Current Diagnosis CKD(stage I-IV),Diabetes Other Pertinent Diagnosis Fluid retention in scrotum and BLE edema, wounds on toe, heel and leg Current Diet Cardiac/consistent CHO Labs/Tests Lasix KDUR A1c 7.4 Subjective/Other Information Consult for malnutrition. Pt not in room at time of visit. Nutrition Intervention Follow-Up By: 08/19/18 Additional Comments Follow for assessment needs
--- NOTE | 2018-08-17 10:46 | Progress Note ---
Assessment and Plan Acute kidney injury possibly ATN from Nephrotic range protienuria, Cardiorenal syndrome on CKD: Volume overload: Acute on chronic diastolic CHF: Essential HTN: Diabetes Mellitus type 2: Anemia of chronic disease due to CKD: Morbid Obesity: -Cr trending up, Will continue lasix 40 mg QID IV for now as needs diuresis for volume overload. Repeat CXR today for volume status. -Urine PCR shows Nephrotic range proteinuria, Check 2ndary nephrotic workup with JELANI, Anti-DsDNA, C3/C4, RPR, Hep Panel, HIV, SPEP/UPEP, Serum IFX. Could be due to DM2 as well. -Hold RAAS inhibitors -TTE shows Diastolic CHF. BNP was 850 on 08/15, BNP can be falsely low in obese patients so likely underestimated in this patient. -Renally dose all meds -Avoid Nephrotoxic meds -Strict I/Os -Titrate BP meds PRN to keep BP <130/80 -Check Iron Panel/Ferritin for ACD, started Epogen -Monitor closely Patrick Fonseca MD [phone] Subjective Date of service: 08/17/18 Interval history: Making urine. Objective - Exam Narrative Exam: GE: AAOX3, Obese HEENT: PERRLA Neck: Supple Chest: Coarse BS BL CVS: RRR Abd: Soft/Obese, BS+ Ext: 2-3 BLE edema Psyche: Appropriate mood - Vital Signs Vital signs: Vital Signs - 12hr 08/16/18 08/17/18 08/17/18 23:58 04:00 04:16 Temperature 98.8 F Pulse Rate 81 85 Respiratory 20 18 Rate Blood Pressure 143/68 O2 Sat by Pulse 92 Oximetry 08/17/18 08/17/18 08/17/18 04:51 08:22 08:39 Temperature 97.6 F Pulse Rate 72 80 Respiratory 20 Rate Blood Pressure 138/67 144/63 O2 Sat by Pulse 94 95 93 Oximetry 08/17/18 08/17/18 08:45 09:10 Temperature 98.9 F Pulse Rate 80 Respiratory Rate Blood Pressure 144/63 O2 Sat by Pulse Oximetry - Lab 08/17/18 07:30 08/17/18 07:30 Most recent lab results Calcium 9.1 mg/dL (8.4-10.2) 08/17/18 07:30 22.4 mg/dL (0.1-20.0) H 08/17/18 04:00 132 mmol/L 08/17/18 04:00 79 mg/dL (5-11.8) H 08/17/18 04:00 Medications & Allergies - Medications Allergies/Adverse Reactions: Allergies canagliflozin [From Invokana] Allergy (Verified 08/15/18 17:49) Unknown IV CONTRAST DYE Allergy (Uncoded 08/15/18 17:49) Unknown Home Medications: Home Medications Medication Instructions Recorded Confirmed Last Taken Type Acetaminophen [Acetaminophen ER] 650 mg PO Q8HR PRN 08/16/18 08/16/18 Unknown History Amlodipine Besylate/Benazepril 1 each PO QDAY 08/16/18 08/16/18 Unknown History [Lotrel 10-40 mg] AtorvaSTATin [Lipitor] 40 mg PO QHS 08/16/18 08/16/18 Unknown History Cholecalciferol (Vitamin D3) 5,000 unit PO DAILY 08/16/18 08/16/18 Unknown History [Vitamin D3 5,000 UNIT] Doxylamine Succinate [Unisom] 25 mg PO QHS 08/16/18 08/16/18 Unknown History Gabapentin [Neurontin] 300 mg PO QHS 08/16/18 08/16/18 Unknown History Insulin Regular, Human [Humulin R 90 unit SQ BID 08/16/18 08/16/18 Unknown History U-500 Kwikpen] Loratadine [Claritin] 10 mg PO DAILY PRN 08/16/18 08/16/18 Unknown History Melatonin [Melatonin 3MG TAB] 3 mg PO QHS 08/16/18 08/16/18 Unknown History Niacin [Niacor] 500 mg PO DAILY 08/16/18 08/16/18 Unknown History Omeprazole 20 mg PO DAILY PRN 08/16/18 08/16/18 Unknown History Triamcinolone Acetonide [Nasacort 10.8 ml NS DAILY 08/16/18 08/16/18 Unknown History SPRAY] Active Medications: Generic Name Dose Route Start Last Admin Trade Name Freq PRN Reason Stop Dose Admin Acetaminophen 650 mg 08/16/18 03:07 Tylenol PO Q4H PRN Pain MILD(1-3)/Fever >100.5/FRAIRE Albuterol 2.5 mg 08/16/18 03:07 Proventil IH Q4HRT PRN Shortness Of Breath Aspirin 81 mg 08/16/18 10:00 08/17/18 09:09 Baby Aspirin PO 81 mg QDAY [facility] Administration Atorvastatin Calcium 40 mg 08/16/18 22:00 08/16/18 22:19 Lipitor PO 40 mg QHS [facility] Administration Carvedilol 3.125 mg 08/16/18 10:00 08/17/18 09:10 Coreg PO 3.125 mg BID [facility] Administration Cholecalciferol 5,000 unit 08/16/18 10:00 08/17/18 09:10 Vitamin D3 PO 5,000 unit DAILY [facility] Administration Dextrose 50 ml 08/16/18 03:13 D50w (25gm) Syringe IV PRN PRN Hypoglycemia Docusate Sodium 100 mg 08/16/18 10:00 08/17/18 09:09 Colace PO 100 mg BID [facility] Administration Epoetin Keon 10,000 unit 08/18/18 13:00 Procrit SUB-Q MOWEFR [facility] Gabapentin 300 mg 08/16/18 22:00 08/16/18 22:19 Neurontin PO 300 mg QHS [facility] Administration Heparin Sodium (Porcine) 5,000 unit 08/16/18 10:00 08/17/18 09:10 Heparin SUB-Q 5,000 unit Q12HR [facility] Administration Hydralazine HCl 50 mg 08/16/18 14:00 08/17/18 05:59 Apresoline PO 50 mg Q8HR [facility] Administration Insulin Human Lispro 0 unit 08/16/18 07:30 08/17/18 08:45 Humalog SUB-Q 2 unit ACHS [facility] Administration Protocol Insulin Human Regular 5 units 08/16/18 07:30 08/17/18 08:45 Humulin R SUB-Q 5 units AC [facility] Administration Nitroglycerin 0.4 mg 08/16/18 03:07 Nitrostat SL .Q5MIN PRN Chest Pain Ondansetron HCl 4 mg 08/16/18 03:07 08/16/18 16:39 Zofran IV 4 mg Q8H PRN Administration Nausea And Vomiting Oxycodone/Acetaminophen 1 tab 08/16/18 03:07 08/17/18 09:29 Percocet 5/325 PO 1 tab Q6H PRN Administration Pain, Moderate (4-6) Sodium Chloride 10 ml 08/16/18 10:00 08/17/18 09:11 Sodium Chloride Flush Syringe 10 Ml IV 10 ml BID [facility] Administration Sodium Chloride 10 ml 08/16/18 03:07 08/16/18 06:17 Sodium Chloride Flush Syringe 10 Ml IV 10 ml PRN PRN Administration LINE FLUSH
--- NOTE | 2018-08-17 11:37 | Progress Note ---
Assessment and Plan Continue beta mathieu and hydralazine for blood pressure control patient is on diuretics as per renal discussed with patient detail kidney dysfunction with edema and diuretic therapy - Patient Problems (1) Anasarca Current Visit: Yes Status: Acute (2) CHF (congestive heart failure) Current Visit: Yes Status: Acute Qualifiers: Heart failure type: diastolic Heart failure chronicity: acute Qualified Code(s): I50.31 - Acute diastolic (congestive) heart failure (3) CKD (chronic kidney disease) Current Visit: Yes Status: Acute Qualifiers: Chronic kidney disease stage: stage 3 (moderate) Qualified Code(s): N18.3 - Chronic kidney disease, stage 3 (moderate) (4) HANSEN (dyspnea on exertion) Current Visit: Yes Status: Acute (5) Essential hypertension Current Visit: Yes Status: Chronic (6) Hyperlipemia, mixed Current Visit: Yes Status: Chronic (7) Morbid obesity Current Visit: Yes Status: Chronic Subjective Date of service: 08/17/18 Principal diagnosis: sob Interval history: Patient has lost 3 kg states shortness breath has mildly improved but still present Objective Vital Signs Temp Pulse Resp BP Pulse Ox 08/17/18 10:40 20 08/17/18 09:10 80 144/63 08/17/18 08:45 98.9 F 08/17/18 08:39 80 144/63 93 08/17/18 08:22 95 08/17/18 04:51 97.6 F 72 20 138/67 94 08/17/18 04:16 18 08/17/18 04:00 85 08/16/18 23:58 98.8 F 81 20 143/68 92 08/16/18 21:18 93 08/16/18 20:19 93 08/16/18 20:17 98.2 F 76 20 142/67 92 08/16/18 16:39 20 08/16/18 16:11 94 08/16/18 13:35 20 97 08/16/18 13:06 98.7 F 78 18 169/78 95 08/16/18 12:39 80 - Physical Examination General: Appears Well HEENT: Positive: PERRL, Mucus Membranes Moist Neck: Positive: neck supple, trachea midline Cardiac: Positive: Reg Rate and Rhythm Lungs: Positive: clear to auscultation Neuro: Positive: Grossly Intact Abdomen: Positive: Soft, Active Bowel Sounds. Negative: Tender, Distended Skin: Positive: Clear Incision: Cardiac Cath Site Musculoskeletal: No Pain, Normal Range of Motion Extremities: Present: normal, edema, +1 Edema, Other (scrotal edema) - Labs and Meds CBC 08/17/18 Range/Units 07:30 WBC 5.0 (4.5-11.0) K/mm3 RBC 3.83 (3.65-5.03) M/mm3 Hgb 10.3 L (11.8-15.2) gm/dl Hct 31.5 L (35.5-45.6) % Plt Count 143 (140-440) K/mm3 Lymph # 1.3 (1.2-5.4) K/mm3 Grimes # 0.7 (0.0-0.8) K/mm3 Eos # 0.3 (0.0-0.4) K/mm3 Baso # 0.1 (0.0-0.1) K/mm3 Comprehensive Metabolic Panel 08/17/18 Range/Units 07:30 Sodium 141 (137-145) mmol/L Potassium 4.4 (3.6-5.0) mmol/L Chloride 101.1 (98-107) mmol/L Carbon Dioxide 25 (22-30) mmol/L BUN 32 H (9-20) mg/dL Creatinine 2.9 H (0.8-1.5) mg/dL Glucose 180 H (75-100) mg/dL Calcium 9.1 (8.4-10.2) mg/dL - Imaging and Cardiology EKG: image reviewed (sinus rhythm at 76 bpm) Echo: report reviewed (2015 normal LV function.Positive bubble study PFO), other (08/17/2018 normal LV function and diastolic dysfunction mild to moderate LVH no significant regurgitations) - Telemetry EKG Rhythm: Sinus Rhythm
--- NOTE | 2018-08-17 11:39 | XRay Report ---
PROCEDURE: XR CHEST 1V AP TECHNIQUE: Chest, portable upright HISTORY: congestion COMPARISON: 08/16/2018 FINDINGS: The heart size is normal. There is no pulmonary vascular congestion seen. Lungs are clear. There is no pleural effusion seen. There is no pneumothorax seen. IMPRESSION: No acute abnormality identified. This document is electronically signed by Bernarda Wallace MD., Aug 17 2018 11:37:14 AM ET
[2018-08-17 12:14] LABS: Hepatitis B Surface Antigen Non-Reactive (Negative); Hepatitis C Virus Antibody Non-Reactive (NonReactive)
[2018-08-17] MEDS: LASIX IV SCH ×3 (14:41→21:50)
[2018-08-17] MEDS: NEURONTIN PO SCH (21:50)
[2018-08-18] MEDS: PERCOCET 5/325 PO PRN ×2 (01:23→13:30)
[2018-08-18] MEDS: APRESOLINE PO SCH ×3 (06:14→21:28)
--- NOTE | 2018-08-18 07:03 | Progress Note ---
Assessment and Plan Assessment: Acute kidney injury possibly ATN from Nephrotic range protienuria, Cardiorenal syndrome on CKD: -Labs pending today -Currently on Lasix 40 mg IV QID -Urine protein to cr ratio shows Nephrotic range proteinuria, check secondary GN workup with JELANI, Anti-DsDNA, C3/C4, RPR, Hep Panel, HIV, SPEP/UPEP, Serum IFX, could be due to DM Type 2 as well. -HIV, RPR, Hepatitis panel-> negative -Holding RAAS inhibitors -Renally dose all meds -Titrate BP meds PRN to keep BP <130/80 -Avoid Nephrotoxic meds -Strict I/Os -Mckeon Catheter: No -Intake= 1196 ml Output= 500 ml (Net= 696 ml) -> pt states he hasn't been saving all his urine for measurement. Pt advised to save his urine so staff can measure -Renal plan d/w Dr Gordillo Acute on chronic diastolic CHF: -TTE shows Diastolic CHF. BNP was 850 on 08/15/09, BNP can be falsely low in obese patients so likely underestimated in this patient. - On Lasix 40 mg IV QID for now Anemia of chronic disease due to CKD: - Iron level low, ferritin level pending - On Epogen Essential Hypertension: - Continue on current regimen - Adjust medications as needed Diabetes Mellitus type 2 on insulin: - As per primary team Subjective Principal diagnosis: sob Interval history: Pt seen in bed, c/o nasal congestion, productive cough with clear sputum, and generalized body aches. Pt states he continues to have scrotal swelling. Pt sitting up on the side of the bed, I mentioned to pt to make sure he contacts staff prior to getting up and ambulating particulary since he c/o dizziness last night. Objective - Vital Signs Vital signs: Vital Signs - 12hr 08/17/18 08/17/18 08/17/18 19:30 21:30 21:33 Temperature 98.7 F Pulse Rate 74 18 L Respiratory 20 104 H Rate Blood Pressure 123/55 O2 Sat by Pulse 93 94 Oximetry 08/17/18 08/17/18 08/17/18 21:49 21:50 23:46 Temperature 99.4 F Pulse Rate 104 H 104 H 72 Respiratory 20 Rate Blood Pressure 123/55 123/55 125/58 O2 Sat by Pulse 93 Oximetry 08/18/18 08/18/1808/18/19 01:23 04:28 04:31 Temperature 100.0 F H Pulse Rate 72 80 Respiratory 20 20 Rate Blood Pressure 129/55 O2 Sat by Pulse 93 Oximetry 08/18/18 06:14 Temperature Pulse Rate 80 Respiratory Rate Blood Pressure 129/55 O2 Sat by Pulse Oximetry - General Appearance General appearance: well-developed EENT: ATNC Respiratory: Present: Decreased Breath Sounds Cardiology: regular, S1S2 Gastrointestinal: normoactive bowel sounds, no tenderness, other (: Scrotal edema noted) Integumentary: warm and dry Neurologic: alert and oriented x3 Musculoskeletal: other (2+ edema to BLE) Psychiatric: cooperative - Lab 08/17/18 07:30 08/17/18 07:30 Most recent lab results Calcium 9.1 mg/dL (8.4-10.2) 08/17/18 07:30 22.4 mg/dL (0.1-20.0) H 08/17/18 04:00 132 mmol/L 08/17/18 04:00 79 mg/dL (5-11.8) H 08/17/18 04:00 Medications & Allergies - Medications Allergies/Adverse Reactions: Allergies canagliflozin [From Invokana] Allergy (Verified 08/15/18 17:49) Unknown IV CONTRAST DYE Allergy (Uncoded 08/15/18 17:49) Unknown Home Medications: Home Medications Medication Instructions Recorded Confirmed Last Taken Type Acetaminophen [Acetaminophen ER] 650 mg PO Q8HR PRN 08/16/18 08/16/18 Unknown History Amlodipine Besylate/Benazepril 1 each PO QDAY 08/16/18 08/16/18 Unknown History [Lotrel 10-40 mg] AtorvaSTATin [Lipitor] 40 mg PO QHS 08/16/18 08/16/18 Unknown History Cholecalciferol (Vitamin D3) 5,000 unit PO DAILY 08/16/18 08/16/18 Unknown History [Vitamin D3 5,000 UNIT] Doxylamine Succinate [Unisom] 25 mg PO QHS 08/16/18 08/16/18 Unknown History Gabapentin [Neurontin] 300 mg PO QHS 08/16/18 08/16/18 Unknown History Insulin Regular, Human [Humulin R 90 unit SQ BID 08/16/18 08/16/18 Unknown History U-500 Kwikpen] Loratadine [Claritin] 10 mg PO DAILY PRN 08/16/18 08/16/18 Unknown History Melatonin [Melatonin 3MG TAB] 3 mg PO QHS 08/16/18 08/16/18 Unknown History Niacin [Niacor] 500 mg PO DAILY 08/16/18 08/16/18 Unknown History Omeprazole 20 mg PO DAILY PRN 08/16/18 08/16/18 Unknown History Triamcinolone Acetonide [Nasacort 10.8 ml NS DAILY 08/16/18 08/16/18 Unknown History SPRAY] Active Medications: Generic Name Dose Route Start Last Admin Trade Name Freq PRN Reason Stop Dose Admin Acetaminophen 650 mg 08/16/18 03:07 Tylenol PO Q4H PRN Pain MILD(1-3)/Fever >100.5/FRAIRE Albuterol 2.5 mg 08/16/18 03:07 Proventil IH Q4HRT PRN Shortness Of Breath Aspirin 81 mg 08/16/18 10:00 08/17/18 09:09 Baby Aspirin PO 81 mg QDAY [facility] Administration Atorvastatin Calcium 40 mg 08/16/18 22:00 08/17/18 21:50 Lipitor PO 40 mg QHS [facility] Administration Carvedilol 6.25 mg 08/17/18 12:00 08/17/18 21:49 Coreg PO 6.25 mg BID [facility] Administration Cholecalciferol 5,000 unit 08/16/18 10:00 08/17/18 09:10 Vitamin D3 PO 5,000 unit DAILY [facility] Administration Dextrose 50 ml 08/16/18 03:13 D50w (25gm) Syringe IV PRN PRN Hypoglycemia Docusate Sodium 100 mg 08/16/18 10:00 08/17/18 21:50 Colace PO 100 mg BID [facility] Administration Epoetin Keon 10,000 unit 08/18/18 13:00 Procrit SUB-Q MOWEFR [facility] Furosemide 40 mg 08/17/18 14:00 08/17/18 21:50 Lasix IV 40 mg QID [facility] Administration Gabapentin 300 mg 08/16/18 22:00 08/17/18 21:50 Neurontin PO 300 mg QHS [facility] Administration Heparin Sodium (Porcine) 5,000 unit 08/16/18 10:00 08/17/18 21:50 Heparin SUB-Q 5,000 unit Q12HR [facility] Administration Hydralazine HCl 50 mg 08/16/18 14:00 08/18/18 06:14 Apresoline PO 50 mg Q8HR [facility] Administration Insulin Human Lispro 0 unit 08/16/18 07:30 08/17/18 22:22 Humalog SUB-Q 3 unit ACHS [facility] Administration Protocol Insulin Human Regular 5 units 08/16/18 07:30 08/17/18 17:30 Humulin R SUB-Q 5 units AC [facility] Administration Nitroglycerin 0.4 mg 08/16/18 03:07 Nitrostat SL .Q5MIN PRN Chest Pain Ondansetron HCl 4 mg 08/16/18 03:07 08/16/18 16:39 Zofran IV 4 mg Q8H PRN Administration Nausea And Vomiting Oxycodone/Acetaminophen 1 tab 08/16/18 03:07 08/18/18 01:23 Percocet 5/325 PO 1 tab Q6H PRN Administration Pain, Moderate (4-6) Sodium Chloride 10 ml 08/16/18 10:00 08/17/18 21:51 Sodium Chloride Flush Syringe 10 Ml IV 10 ml BID [facility] Administration Sodium Chloride 10 ml 08/16/18 03:07 08/16/18 06:17 Sodium Chloride Flush Syringe 10 Ml IV 10 ml PRN PRN Administration LINE FLUSH
[2018-08-18 08:02] LABS: Calcium 8.6 mg/dL (8.4-10.2)
[2018-08-18] MEDS: HumaLOG SUB-Q SCH ×4 (08:06→22:06)
[2018-08-18] MEDS: HumuLIN R SUB-Q SCH ×3 (08:08→18:41)
[2018-08-18] MEDS: TYLENOL PO PRN ×2 (08:49→17:00)
[2018-08-18 08:53] LABS: Hematocrit 33.8 % (35.5-45.6); Hemoglobin 10.8 gm/dl (11.8-15.2); Mean Corpuscular HGB Conc 32 % (32-34); Mean Corpuscular Volume 84 fl (84-94); Platelet Count 150 K/mm3 (140-440); Red Blood Count 4.04 M/mm3 (3.65-5.03); Red Cell Distribution Width 16.3 % (13.2-15.2)
[2018-08-18] MEDS: COREG PO SCH ×2 (09:47→21:28)
[2018-08-18] MEDS: VITAMIN D3 PO SCH (09:47)
[2018-08-18] MEDS: BABY ASPIRIN PO SCH (09:48)
[2018-08-18] MEDS: HEPARIN SUB-Q SCH ×2 (09:48→21:29)
[2018-08-18] MEDS: SODIUM CHLORIDE FLUSH SYRINGE 10 ML IV SCH ×2 (09:48→21:30)
[2018-08-18] MEDS: COLACE PO SCH ×2 (09:48→21:28)
--- NOTE | 2018-08-18 09:48 | Progress Note ---
Assessment and Plan in view of worsening renal function and fever and chills stop iv lasix and monitor weight diffucutly to measure i/o and bp controlled with current meds - Patient Problems (1) Anasarca Current Visit: Yes Status: Acute (2) CHF (congestive heart failure) Current Visit: Yes Status: Acute Qualifiers: Heart failure type: diastolic Heart failure chronicity: acute Qualified Code(s): I50.31 - Acute diastolic (congestive) heart failure (3) CKD (chronic kidney disease) Current Visit: Yes Status: Acute Qualifiers: Chronic kidney disease stage: stage 3 (moderate) Qualified Code(s): N18.3 - Chronic kidney disease, stage 3 (moderate) (4) HANSEN (dyspnea on exertion) Current Visit: Yes Status: Acute (5) Essential hypertension Current Visit: Yes Status: Chronic (6) Hyperlipemia, mixed Current Visit: Yes Status: Chronic (7) Morbid obesity Current Visit: Yes Status: Chronic Subjective Date of service: 08/18/18 Principal diagnosis: sob Interval history: pt has cough and fever generalzed body pains. Objective Vital Signs Temp Pulse Resp BP Pulse Ox 08/18/18 08:45 20 L 78 H 08/18/18 08:44 100.7 F H 20 152/51 95 08/18/18 06:14 80 129/55 08/18/18 04:31 100.0 F H 80 20 129/55 93 08/18/18 04:28 72 08/18/18 01:23 20 08/17/18 23:46 99.4 F 72 20 125/58 93 08/17/18 21:50 104 H 123/55 08/17/18 21:49 104 H 123/55 08/17/18 21:33 94 08/17/18 21:30 18 L 104 H 08/17/18 19:30 98.7 F 74 20 123/55 93 08/17/18 17:17 98.3 F 71 20 133/68 96 08/17/18 14:40 74 137/56 08/17/18 12:49 73 130/71 08/17/18 12:11 98.4 F 73 18 130/71 93 08/17/18 12:00 73 08/17/18 10:40 20 - Physical Examination General: Appears Well HEENT: Positive: PERRL, Mucus Membranes Moist Neck: Positive: neck supple, trachea midline Cardiac: Positive: Reg Rate and Rhythm Lungs: Positive: Decreased Breath Sounds Neuro: Positive: Grossly Intact Abdomen: Positive: Soft, Active Bowel Sounds. Negative: Tender, Distended Skin: Positive: Clear Incision: Cardiac Cath Site Musculoskeletal: No Pain, Normal Range of Motion Extremities: Present: normal, edema, +1 Edema, Other (scrotal edema) - Labs and Meds CBC 08/18/18 Range/Units 08:34 WBC 5.1 (4.5-11.0) K/mm3 RBC 4.04 (3.65-5.03) M/mm3 Hgb 10.8 L (11.8-15.2) gm/dl Hct 33.8 L (35.5-45.6) % Plt Count 150 (140-440) K/mm3 Comprehensive Metabolic Panel 08/18/18 Range/Units 07:05 Sodium 134 L (137-145) mmol/L Potassium 4.8 (3.6-5.0) mmol/L Chloride 95.9 L (98-107) mmol/L Carbon Dioxide 24 (22-30) mmol/L BUN 43 H (9-20) mg/dL Creatinine 3.8 H (0.8-1.5) mg/dL Glucose 150 H (75-100) mg/dL Calcium 8.6 (8.4-10.2) mg/dL - Imaging and Cardiology EKG: image reviewed (sinus rhythm at 76 bpm) Echo: report reviewed (2015 normal LV function.Positive bubble study PFO), other (08/17/2018 normal LV function and diastolic dysfunction mild to moderate LVH no significant regurgitations) - Telemetry EKG Rhythm: Sinus Rhythm
[2018-08-18] MEDS ORDERED: DULCOLAX PR NR (09:54)
[2018-08-18] MEDS: PROCRIT SUB-Q SCH (13:33)
--- NOTE | 2018-08-18 14:03 | Vascular Lab Report ---
PROCEDURE: VL VENOUS DUPLEX LE BILAT TECHNIQUE: Grayscale and color and spectral doppler ultrasound imaging of the bilateral lower extrem ity venous system was performed. HISTORY: elevated d-dimer, lower extremity edema COMPARISONS: None. FINDINGS: There is normal compression and color flow within the bilateral lower extremity venous systems. Norm al augmentation was seen. No evidence of superficial venous thrombus. No soft tissue abnormality. IMPRESSION: No evidence of lower extremity deep venous thrombosis. This document is electronically signed by Poppy Albert., Aug 18 2018 02:01:25 PM ET
--- NOTE | 2018-08-18 14:42 | Progress Note ---
Assessment and Plan Assessment and plan: Patient is a 58-year-old male with history of hypertension, diabetes, HLD, CKD stage III who presents to [facility] ED with c/o bilateral lower extremity swelling and shortness of breath. Pt scrotum is swollen obstructing view of his penis. Currently patient is on 2L supplemental O2 with saturation of 94%. D-dimer slightly elevated at 463.24. CK-MB elevated at 5.0; troponin negative. * 2v CXR unremarkable * normal proBNP * 2D ECHO conclusions Global LV systolic function is normal, estimated estimated EF is 55-60%; abnormal LV diastolic dysfunction, mild to moderate concentric LV hypertrophy, trace mr, tr, RVSP calculated at 57 mmHg, BLE and scrotal edema, work up for CHF underway: ECHO reviewed, treated with Lasix 40mg BID, now on hold b/c worsening renal function, Cardiology is following New onset Acute diastolic dysfunction heart failure: consult Cardiology Acute on Chronic kidney disease, stage 3: cr is 2.5--->2.9 unable to get CTA, consulted Nephrology Elevated D-Dimer, Rule out PE, V/Q pending Volume overload with significant Proteinuria, ?nephrotic syndrome; Nephrology consulted Anasarca- likely multifactorial to CHF and volume overload Hypertensive urgency: iv antihypertensives as needed, low salt diet DM type 2; ada and ssi HLD: treat with statins Malnutrition mild to moderate: counseling done, consult Pharmacy Clinical Specialist Right toe pressure ulcer, poa, at least stage 3, heel ulcers bilateral also: see admission photos, local wound care done, consult Wound care for further management Morbid obese, bmi 51.3, 342 lbs: branch credit counselor on lifestyle modification and weight reduction New issue is that patient had overnight fevers: blood culture, chest xray ordered. VQ scan pending, I have spoken with the nurse and she will let me know==> v/q scan broken per review of the chart, consulted Garbage Pick Up Worker, Dr. Ramirez, who ordered bilateral venous leg dopplers which was negative for DVT. Consider transfer to another facility to get a v/q scan and come right back. I called [facility] [phone] @ 2:50pm and spoke with Claire Blanca and she will call me results Cr is up to 3.8; I spoke with senior instructor, Dr. Gordillo, ok to stop Lasix. History Interval history: Patient was seen and examined. Follow-up on current diagnosis swelling. No overnight events reported to me. Patient denies any chest pain, nausea/vomiting or severe headaches. Imaging, nursing note, chart, labs and old chart reviewed. Discussed with patient. Hospitalist Physical - Physical exam Narrative exam: Gen: obese bmi 51.4, WDWN, NAD, Awake, Alert, Orientated HEENT: NCAT, EOMI, PERRL, OP Clear Neck: supple, no adenopathy, no thyromegaly, no JVD CVS/Heart: RRR, normal S1S2, pulses present bilaterally Chest/Lungs: CTA B, Symmetrical chest expansion, good air entry bilaterally GI/Abdomen: large pannus, soft, NTND, good bowel sounds, no guarding or rebound /Bladder: scrotal edema, no suprapubic tenderness, no CVA or paraspinal tende rness Extermity/Skin: ble edema, heel ulcer, there is an half dollar size ulcer under right big toe, see admission photos MSK: FROM x 4 Neuro: CN 2-12 grossly intact, no new focal deficits Psych: calm - Constitutional Vitals: Temp Pulse Resp BP Pulse Ox 99.0 F 86 18 116/54 95 08/18/18 11:51 08/18/18 09:47 08/18/18 12:42 08/18/18 11:51 08/18/18 08:44 General appearance: Present: no acute distress, well-nourished Results - Labs CBC & Chem 7: 08/18/18 08:34 08/18/18 07:05 Labs: Laboratory Last Values WBC 5.1 K/mm3 (4.5-11.0) 08/18/18 08:34 RBC 4.04 M/mm3 (3.65-5.03) 08/18/18 08:34 Hgb 10.8 gm/dl (11.8-15.2) L 08/18/18 08:34 Hct 33.8 % (35.5-45.6) L 08/18/18 08:34 MCV 84 fl (84-94) 08/18/18 08:34 MCH 27 pg (28-32) L 08/18/18 08:34 MCHC 32 % (32-34) 08/18/18 08:34 RDW 16.3 % (13.2-15.2) H 08/18/18 08:34 Plt Count 150 K/mm3 (140-440) 08/18/18 08:34 Lymph % (Auto) 26.6 % (13.4-35.0) 08/17/18 07:30 [place] % (Auto) 14.0 % (0.0-7.3) H 08/17/18 07:30 Eos % (Auto) 6.6 % (0.0-4.3) H 08/17/18 07:30 Baso % (Auto) 1.1 % (0.0-1.8) 08/17/18 07:30 Lymph # 1.3 K/mm3 (1.2-5.4) 08/17/18 07:30 [place] # 0.7 K/mm3 (0.0-0.8) 08/17/18 07:30 Eos # 0.3 K/mm3 (0.0-0.4) 08/17/18 07:30 Baso # 0.1 K/mm3 (0.0-0.1) 08/17/18 07:30 Seg Neutrophils % 51.7 % (40.0-70.0) 08/17/18 07:30 Seg Neutrophils # 2.6 K/mm3 (1.8-7.7) 08/17/18 07:30 463.24 ng/mlDDU (0-234) H 08/15/18 21:24 Sodium 134 mmol/L (137-145) L 08/18/18 07:05 Potassium 4.8 mmol/L (3.6-5.0) 08/18/18 07:05 Chloride 95.9 mmol/L (98-107) L 08/18/18 07:05 Carbon Dioxide 24 mmol/L (22-30) 08/18/18 07:05 19 mmol/L 08/18/18 07:05 BUN 43 mg/dL (9-20) H 08/18/18 07:05 3.8 mg/dL (0.8-1.5) H 08/18/18 07:05 Estimated GFR 17 ml/min 08/18/18 07:05 11 % 08/18/18 07:05 Glucose 150 mg/dL (75-100) H 08/18/18 07:05 POC Glucose 191 (70-105) H 08/18/18 11:53 7.4 % (4-6) H 08/16/18 03:37 Calcium 8.6 mg/dL (8.4-10.2) 08/18/18 07:05 Iron 30 ug/dL (49-181) L 08/16/18 13:52 TIBC 352 mcg/dL (250-450) 08/16/18 13:52 78.2 ng/mL (13.0-400.0) 08/18/18 08:34 0.40 mg/dL (0.1-1.2) 08/15/18 18:54 AST 25 units/L (5-40) 08/15/18 18:54 ALT 15 units/L (7-56) 08/15/18 18:54 74 units/L (35-129) 08/15/18 18:54 340 units/L (55-170) H 08/15/18 21:24 CK-MB (CK-2) 5.0 ng/mL (0.0-4.0) H 08/15/18 21:24 CK-MB (CK-2) Rel Index 1.4 (0-4) 08/15/18 21:24 0.026 ng/mL (0.00-0.029) 08/15/18 21:24 NT-Pro-B Natriuret Pep 877.6 pg/mL (0-900) 08/17/18 11:13 6.7 g/dL (6.3-8.2) 08/15/18 18:54 3.2 g/dL (3.9-5) L 08/15/18 18:54 0.9 % 08/15/18 18:54 Triglycerides 140 mg/dL (2-149) 08/16/18 03:37 Cholesterol 147 mg/dL (50-199) 08/16/18 03:37 88 mg/dL (50-130) 08/16/18 03:37 37 mg/dL (40-59) L 08/16/18 03:37 3.97 % 08/16/18 03:37 Straw (Yellow) 08/17/18 04:00 Clear (Clear) 08/17/18 04:00 7.0 (5.0-7.0) 08/17/18 04:00 Ur Specific [place] 1.006 (1.003-1.030) 08/17/18 04:00 100 mg/dl mg/dL (Negative) 08/17/18 04:00 Neg mg/dL (Negative) 08/17/18 04:00 Neg mg/dL (Negative) 08/17/18 04:00 Neg (Negative) 08/17/18 04:00 Neg (Negative) 08/17/18 04:00 Neg (Negative) 08/17/18 04:00 < 2.0 mg/dL (<2.0) 08/17/18 04:00 Ur Leukocyte Esterase Neg (Negative) 08/17/18 04:00 < 1.0 /HPF (0.0-6.0) 08/17/18 04:00 2.0 /HPF (0.0-6.0) 08/17/18 04:00 U Epithel Cells (Auto) 1.0 /HPF (0-13.0) 08/15/18 18:47 1+ /HPF (Negative) 08/17/18 04:00 Few /HPF 08/15/18 18:47 None seen (None Seen) 08/17/18 04:00 22.4 mg/dL (0.1-20.0) H 08/17/18 04:00 Protein/Creatinin Ratio 3.53 08/17/18 04:00 132 mmol/L 08/17/18 04:00 106 08/17/18 04:00 79 mg/dL (5-11.8) H 08/17/18 04:00 RPR Nonreactive (Nonreactive) 08/17/18 11:13 Hepatitis A IgM Ab Non-reactive (NonReactive) 08/17/18 11:13 Hep Bs Antigen Non-reactive (Negative) 08/17/18 11:13 Hep B Core IgM Ab Non-reactive (NonReactive) 08/17/18 11:13 Non-reactive (NonReactive) 08/17/18 11:13 HIV 1&2 Antibody Rapid Non react (Non React) 08/17/18 11:13 Non react (Non React) 08/17/18 11:13 Active Medications - Current Medications Current Medications: Generic Name Dose Route Start Last Admin Trade Name Freq PRN Reason Stop Dose Admin Acetaminophen 650 mg 08/16/18 03:07 08/18/18 08:49 Tylenol PO 650 mg Q4H PRN Administration Pain MILD(1-3)/Fever >100.5/FRAIRE Albuterol 2.5 mg 08/16/18 03:07 Proventil IH Q4HRT PRN Shortness Of Breath Aspirin 81 mg 08/16/18 10:00 08/18/18 09:48 Baby Aspirin PO 81 mg QDAY ARLENE Administration Atorvastatin Calcium 40 mg 08/16/18 22:00 08/17/18 21:50 Lipitor PO 40 mg QHS ARLENE Administration Carvedilol 6.25 mg 08/17/18 12:00 08/18/18 09:47 Coreg PO 6.25 mg BID ARLENE Administration Cholecalciferol 5,000 unit 08/16/18 10:00 08/18/18 09:47 Vitamin D3 PO 5,000 unit DAILY ARLENE Administration Dextrose 50 ml 08/16/18 03:13 D50w (25gm) Syringe IV PRN PRN Hypoglycemia Docusate Sodium 100 mg 08/16/18 10:00 08/18/18 09:48 Colace PO 100 mg BID ARLENE Administration Epoetin [place] 10,000 unit 08/18/18 13:00 08/18/18 13:33 Procrit SUB-Q 10,000 unit MOWEFR ARLENE Administration Gabapentin 300 mg 08/16/18 22:00 08/17/18 21:50 Neurontin PO 300 mg QHS ARLENE Administration Heparin Sodium (Porcine) 5,000 unit 08/16/18 10:00 08/18/18 09:48 Heparin SUB-Q 5,000 unit Q12HR ARLENE Administration Hydralazine HCl 50 mg 08/16/18 14:00 08/18/18 06:14 Apresoline PO 50 mg Q8HR ARLENE Administration Insulin Human Lispro 0 unit 08/16/18 07:30 08/18/18 13:23 Humalog SUB-Q 2 unit ACHS ARLENE Administration Protocol Insulin Human Regular 5 units 08/16/18 07:30 08/18/18 13:23 Humulin R SUB-Q 5 units AC ARLENE Administration Nitroglycerin 0.4 mg 08/16/18 03:07 Nitrostat SL .Q5MIN PRN Chest Pain Ondansetron HCl 4 mg 08/16/18 03:07 08/16/18 16:39 Zofran IV 4 mg Q8H PRN Administration Nausea And Vomiting Oxycodone/Acetaminophen 1 tab 08/16/18 03:07 08/18/18 13:30 Percocet 5/325 PO 1 tab Q6H PRN Administration Pain, Moderate (4-6) Sodium Chloride 10 ml 08/16/18 10:00 08/18/18 09:48 Sodium Chloride Flush Syringe 10 Ml IV 10 ml BID ARLENE Administration Sodium Chloride 10 ml 08/16/18 03:07 08/16/18 06:17 Sodium Chloride Flush Syringe 10 Ml IV 10 ml PRN PRN Administration LINE FLUSH Nutrition/Malnutrition Assess - Dietary Evaluation Nutrition/Malnutrition Findings: Nutrition Notes Start: 08/16/18 09:25 Freq: Status: Active Protocol: Document 08/16/18 09:25 LP (Rec: 08/16/18 09:27 LP [id number]) Nutrition Notes Need for Assessment generated from: MD Order Initial or Follow up Brief Note Current Diagnosis CKD(stage I-IV),Diabetes Other Pertinent Diagnosis Fluid retention in scrotum and BLE edema, wounds on toe, heel and leg Current Diet Cardiac/consistent CHO Labs/Tests Lasix KDUR A1c 7.4 Subjective/Other Information Consult for malnutrition. Pt not in room at time of visit. Nutrition Intervention Follow-Up By: 08/19/18 Additional Comments Follow for assessment needs
[2018-08-18] MEDS: ROCEPHIN/NS 1 GM/50 ML 1 GM/50 ML BAG IV SCH (16:46)
--- NOTE | 2018-08-18 17:51 | Consultation ---
History of Present Illness Consult date: 08/18/18 Reason for consult: dyspnea, other (CHF, Swelling.) History of present illness: PULMONARY AND CRITICAL CARE CONSULTATION DR. NEGRO THANK YOU FOR ASING US TO PARTICIPATE IN THE CARE OF THIS PATIENT. 58-year-old male with history of hypertension, diabetes, HLD, CKD stage III who presents to [facility] ED with c/o bilateral lower extremity swelling and shortness of breath. States that he feels like "fluid he has fluid building up" making it hard for him to breathe. According to patient's swelling started a few months ago and has progressively gotten worse over the past 3 days. The swelling is now includes abdomen, scrotum, and bilateral lower extremities.He attributes swelling to not taking by mouth Lasix because he was concerned about his chronic kidney disease. He c/o worsening dyspnea with activity for the past 3 days. Pt states that he is unable to walk more than 10 feet without becoming SOB and needing to take a rest to catch his breath. Pt has wound to Rt great toe, Rt calf and Lt heal. He goes to [facility] [facility] every 2-3 weeks for evaluation and treatment. Patient denies smoking, alcohol or drug abuse. 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 Allergic Invocane and I/V contrast.Not . No children. Patient presently resting on room air. O2 saturation 91%. Patient not using his O2. Recommend to use O2 2 litres via nasal canula.No acute respiratory distress. Past History Past Medical History: diabetes, hypertension, hyperlipidemia, other (CKD 3, sleep apnea.) Past Surgical History: No surgical history Social history: no significant social history Family history: no significant family history Medications and Allergies Allergies Allergy/AdvReac Type Severity Reaction Status Date / Time canagliflozin [From Invokana] Allergy Unknown Verified 08/15/18 17:49 IV CONTRAST DYE Allergy Unknown Uncoded 08/15/18 17:49 Home Medications Medication Instructions Recorded Confirmed Last Taken Type Acetaminophen [Acetaminophen ER] 650 mg PO Q8HR PRN 08/16/18 08/16/18 Unknown History Amlodipine Besylate/Benazepril 1 each PO QDAY 08/16/18 08/16/18 Unknown History [Lotrel 10-40 mg] AtorvaSTATin [Lipitor] 40 mg PO QHS 08/16/18 08/16/18 Unknown History Cholecalciferol (Vitamin D3) 5,000 unit PO DAILY 08/16/18 08/16/18 Unknown History [Vitamin D3 5,000 UNIT] Doxylamine Succinate [Unisom] 25 mg PO QHS 08/16/18 08/16/18 Unknown History Gabapentin [Neurontin] 300 mg PO QHS 08/16/18 08/16/18 Unknown History Insulin Regular, Human [Humulin R 90 unit SQ BID 08/16/18 08/16/18 Unknown History U-500 Kwikpen] Loratadine [Claritin] 10 mg PO DAILY PRN 08/16/18 08/16/18 Unknown History Melatonin [Melatonin 3MG TAB] 3 mg PO QHS 08/16/18 08/16/18 Unknown History Niacin [Niacor] 500 mg PO DAILY 08/16/18 08/16/18 Unknown History Omeprazole 20 mg PO DAILY PRN 08/16/18 08/16/18 Unknown History Triamcinolone Acetonide [Nasacort 10.8 ml NS DAILY 08/16/18 08/16/18 Unknown History SPRAY] Active Meds: Active Medications Acetaminophen (Tylenol) 650 mg PO Q4H PRN PRN Reason: Pain MILD(1-3)/Fever >100.5/FRAIRE Last Admin: 08/18/18 17:00 Dose: 650 mg Documented by: Albuterol (Proventil) 2.5 mg IH Q4HRT PRN PRN Reason: Shortness Of Breath Aspirin (Baby Aspirin) 81 mg PO QDAY [facility] Last Admin: 08/18/18 09:48 Dose: 81 mg Documented by: Atorvastatin Calcium (Lipitor) 40 mg PO QHS [facility] Last Admin: 08/17/18 21:50 Dose: 40 mg Documented by: Carvedilol (Coreg) 6.25 mg PO BID [facility] Last Admin: 08/18/18 09:47 Dose: 6.25 mg Documented by: Cholecalciferol (Vitamin D3) 5,000 unit PO DAILY [facility] Last Admin: 08/18/18 09:47 Dose: 5,000 unit Documented by: Dextrose (D50w (25gm) Syringe) 50 ml IV PRN PRN PRN Reason: Hypoglycemia Docusate Sodium (Colace) 100 mg PO BID [facility] Last Admin: 08/18/18 09:48 Dose: 100 mg Documented by: Epoetin [place] (Procrit) 10,000 unit SUB-Q MOWEFR [facility] Last Admin: 08/18/18 13:33 Dose: 10,000 unit Documented by: Gabapentin (Neurontin) 300 mg PO QHS [facility] Last Admin: 08/17/18 21:50 Dose: 300 mg Documented by: Heparin Sodium (Porcine) (Heparin) 5,000 unit SUB-Q Q12HR [facility] Last Admin: 08/18/18 09:48 Dose: 5,000 unit Documented by: Hydralazine HCl (Apresoline) 50 mg PO Q8HR [facility] Last Admin: 08/18/18 15:52 Dose: 50 mg Documented by: Ceftriaxone Sodium (Rocephin/Ns 1 Gm/50 Ml) 1 gm in 50 mls @ 100 mls/hr IV Q24HR [facility]; Protocol Last Admin: 08/18/18 16:46 Dose: 100 mls/hr Documented by: Insulin Human Lispro (Humalog) 0 unit SUB-Q ACHS [facility]; Protocol Last Admin: 08/18/18 13:23 Dose: 2 unit Documented by: Insulin Human Regular (Humulin R) 5 units SUB-Q [facility] Last Admin: 08/18/18 13:23 Dose: 5 units Documented by: Nitroglycerin (Nitrostat) 0.4 mg SL .Q5MIN PRN PRN Reason: Chest Pain Ondansetron HCl (Zofran) 4 mg IV Q8H PRN PRN Reason: Nausea And Vomiting Last Admin: 08/16/18 16:39 Dose: 4 mg Documented by: Oxycodone/Acetaminophen (Percocet 5/325) 1 tab PO Q6H PRN PRN Reason: Pain, Moderate (4-6) Last Admin: 08/18/18 13:30 Dose: 1 tab Documented by: Sodium Chloride (Sodium Chloride Flush Syringe 10 Ml) 10 ml IV BID [facility] Last Admin: 08/18/18 09:48 Dose: 10 ml Documented by: Sodium Chloride (Sodium Chloride Flush Syringe 10 Ml) 10 ml IV PRN PRN PRN Reason: LINE FLUSH Last Admin: 08/16/18 06:17 Dose: 10 ml Documented by: Review of Systems All systems: negative Physical Examination Vital signs: Vital Signs Temp Pulse Resp BP Pulse Ox 98.2 F 92 H 16 191/87 96 08/15/18 18:23 08/15/18 18:23 08/15/18 18:23 08/15/18 18:23 08/15/18 18:23 General appearance: no acute distress, alert, other (Morbidly Obese.) Eyes: non-icteric ENT: oropharynx moist Neck: supple, no JVD Ascultation: Bilateral: diminished breath sounds Cardiovascular: regular rate and rhythm Gastrointestinal: normoactive bowel sounds, soft, non-tender Integumentary: cellulitis, other (Cellulitis and wounds in both lower legs.) Extremities: edema Musculoskeletal: other (Wounds and swelling in lower legs.) Gait: poor gait normal mental status, non-focal exam, pupils equal and round, CN II-XII normal mood appropriate Results - Laboratory Findings CBC and BMP: 08/18/18 08:34 08/18/18 07:05 PT/INR, D-dimer 463.24 ng/mlDDU (0-234) H 08/15/18 21:24 Abnormal lab findings: Abnormal Labs 08/15/18 08/15/18 08/15/18 18:02 18:54 18:54 RBC 3.61 L Hgb 9.8 L Hct 30.1 L MCV MCH 27 L RDW 16.8 H [place] % (Auto) 10.7 H Eos % (Auto) 5.9 H D-Dimer Sodium Chloride 107.7 H BUN 25 H Creatinine 2.5 H Glucose 159 H POC Glucose 124 H Hemoglobin A1c Iron Total Creatine Kinase CK-MB (CK-2) Albumin 3.2 L HDL Cholesterol Urine Creatinine Urine Total Protein 08/15/18 08/15/18 08/16/18 21:24 21:24 03:37 RBC Hgb Hct MCV MCH RDW [place] % (Auto) Eos % (Auto) D-Dimer 463.24 H Sodium Chloride BUN Creatinine Glucose POC Glucose Hemoglobin A1c 7.4 H Iron Total Creatine Kinase 340 H CK-MB (CK-2) 5.0 H Albumin HDL Cholesterol Urine Creatinine Urine Total Protein 08/16/18 08/16/18 08/16/18 03:37 07:54 12:01 RBC Hgb Hct MCV MCH RDW [place] % (Auto) Eos % (Auto) D-Dimer Sodium Chloride BUN Creatinine Glucose POC Glucose 113 H 179 H Hemoglobin A1c Iron Total Creatine Kinase CK-MB (CK-2) Albumin HDL Cholesterol 37 L Urine Creatinine Urine Total Protein 08/16/18 08/16/18 08/16/18 13:52 17:44 21:21 RBC Hgb Hct MCV MCH RDW [place] % (Auto) Eos % (Auto) D-Dimer Sodium Chloride BUN Creatinine Glucose POC Glucose 221 H 165 H Hemoglobin A1c Iron 30 L Total Creatine Kinase CK-MB (CK-2) Albumin HDL Cholesterol Urine Creatinine Urine Total Protein 08/17/18 08/17/18 08/17/18 04:00 07:30 07:30 RBC Hgb 10.3 L Hct 31.5 L MCV 82 L MCH 27 L RDW 16.8 H [place] % (Auto) 14.0 H Eos % (Auto) 6.6 H D-Dimer Sodium Chloride BUN 32 H Creatinine 2.9 H Glucose 180 H POC Glucose Hemoglobin A1c Iron Total Creatine Kinase CK-MB (CK-2) Albumin HDL Cholesterol Urine Creatinine 22.4 H Urine Total Protein 79 H 08/17/18 08/17/18 08/17/18 07:34 12:17 16:36 RBC Hgb Hct MCV MCH RDW [place] % (Auto) Eos % (Auto) D-Dimer Sodium Chloride BUN Creatinine Glucose POC Glucose 169 H 207 H 184 H Hemoglobin A1c Iron Total Creatine Kinase CK-MB (CK-2) Albumin HDL Cholesterol Urine Creatinine Urine Total Protein 08/17/18 08/18/18 08/18/18 21:17 07:05 07:53 RBC Hgb Hct MCV MCH RDW [place] % (Auto) Eos % (Auto) D-Dimer Sodium 134 L Chloride 95.9 L BUN 43 H Creatinine 3.8 H Glucose 150 H POC Glucose 209 H 139 H Hemoglobin A1c Iron Total Creatine Kinase CK-MB (CK-2) Albumin HDL Cholesterol Urine Creatinine Urine Total Protein 08/18/18 08/18/18 08/18/18 08:34 11:53 15:54 RBC Hgb 10.8 L Hct 33.8 L MCV MCH 27 L RDW 16.3 H [place] % (Auto) Eos % (Auto) D-Dimer Sodium Chloride BUN Creatinine Glucose POC Glucose 191 H 150 H Hemoglobin A1c Iron Total Creatine Kinase CK-MB (CK-2) Albumin HDL Cholesterol Urine Creatinine Urine Total Protein - Diagnostic Findings Chest x-ray: report reviewed (No acute abnormality reported.), image reviewed U/S of Legs: report reviewed (Reported no evidence of lower extremity DVT.), image reviewed Assessment and Plan 58-year-old male with history of hypertension, diabetes, HLD, CKD stage III who presents to [facility] ED with c/o bilateral lower extremity swelling and shortness of breath. States that he feels like "fluid he has fluid building up" making it hard for him to breathe. According to patient's swelling started a few months ago and has progressively gotten worse over the past 3 days. The swelling is now includes abdomen, scrotum, and bilateral lower extremities.He attributes swelling to not taking by mouth Lasix because he was concerned about his chronic kidney disease. He c/o worsening dyspnea with activity for the past 3 days. Pt states that he is unable to walk more than 10 feet without becoming SOB and needing to take a rest to catch his breath. Pt has wound to Rt great toe, Rt calf and Lt heal. He goes to [place] [facility] every 2-3 weeks for evaluation and treatment. Patient denies smoking, alcohol or drug abuse. 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 Allergic Invocan and I/V contrast.Not . No children. Patient presently resting on room air. O2 saturation 91%.Patient not using his O2. Rec ommend to use O2 2 litres via nasal canula.No acute respiratory distress. - Patient Problems (1) CHF (congestive heart failure) Current Visit: Yes Status: Acute Qualifiers: Heart failure type: diastolic Heart failure chronicity: acute Qualified Code(s): I50.31 - Acute diastolic (congestive) heart failure Plan to address problem: Management as per cardiology. (2) CKD (chronic kidney disease) Current Visit: Yes Status: Acute Qualifiers: Chronic kidney disease stage: stage 3 (moderate) Qualified Code(s): N18.3 - Chronic kidney disease, stage 3 (moderate) Plan to address problem: Management as per nephrology. (3) HANSEN (dyspnea on exertion) Current Visit: Yes Status: Acute Plan to address problem: Albuterol aerosol treatments q 6 hours prn for shortness of breath. O2 2 litres via nasal canula Recommend V/Q scan Continue S/C Heparin. ABGs on room air. (4) Elevated d-dimer Current Visit: Yes Status: Acute Plan to address problem: Venous doppler studies reported negative for DVT. Recommend V/Q scan Continue S/C heparin. (5) Essential hypertension Current Visit: Yes Status: Chronic Plan to address problem: Management as per primary care. (6) Morbid obesity Current Visit: Yes Status: Chronic Plan to address problem: Recommend to loose weight. Exercise and diet. (7) Sleep apnea with use of continuous positive airway pressure (CPAP) Current Visit: Yes Status: Acute Plan to address problem: Continue CPAP as he is using at home.
[2018-08-18] MEDS: NEURONTIN PO SCH (21:28)
[2018-08-19] MEDS: PERCOCET 5/325 PO PRN (05:57)
[2018-08-19] MEDS: APRESOLINE PO SCH ×3 (05:58→23:25)
[2018-08-19 06:07] LABS: Hematocrit 30.1 % (35.5-45.6); Hemoglobin 9.7 gm/dl (11.8-15.2); Mean Corpuscular HGB Conc 32 % (32-34); Mean Corpuscular Volume 82 fl (84-94); Platelet Count 136 K/mm3 (140-440); Red Blood Count 3.68 M/mm3 (3.65-5.03); Red Cell Distribution Width 16.6 % (13.2-15.2)
[2018-08-19 06:22] LABS: Calcium 8.7 mg/dL (8.4-10.2)
[2018-08-19] MEDS: HumaLOG SUB-Q SCH ×4 (08:50→23:25)
[2018-08-19] MEDS: HumuLIN R SUB-Q SCH ×3 (08:51→17:54)
[2018-08-19] MEDS: VITAMIN D3 PO SCH (09:12)
[2018-08-19] MEDS: COLACE PO SCH ×2 (09:13→22:28)
[2018-08-19] MEDS: BABY ASPIRIN PO SCH (09:13)
[2018-08-19] MEDS: ROCEPHIN/NS 1 GM/50 ML 1 GM/50 ML BAG IV SCH (09:14)
[2018-08-19] MEDS: TYLENOL PO PRN (09:15)
[2018-08-19] MEDS: COREG PO SCH ×2 (09:15→22:27)
[2018-08-19] MEDS: HEPARIN SUB-Q SCH ×2 (09:16→22:27)
--- NOTE | 2018-08-19 09:28 | Progress Note ---
Assessment and Plan Acute kidney injury possibly ATN from Nephrotic range protienuria, Cardiorenal syndrome on CKD: -cont to have rising creatinine, minimal response to high dose diuretics - may require DESIGN RELEASE ENGINEER within the next 24-48 hours, discussed with patients, for now he wants to wait but if absolutely necessary, he will agree to dialysis -Urine protein to cr ratio shows Nephrotic range proteinuria, check secondary GN workup with JELANI, Anti-DsDNA, C3/C4, RPR, Hep Panel, HIV, SPEP/UPEP, Serum IFX, could be due to DM Type 2 as well. -HIV, RPR, Hepatitis panel-> negative -Holding RAAS inhibitors -Renally dose all meds -Titrate BP meds PRN to keep BP <130/80 -Avoid Nephrotoxic meds -Strict I/Os -Mckeon Catheter: No Acute on chronic diastolic CHF: -TTE shows Diastolic CHF. BNP was 850 on 08/15/09, BNP can be falsely low in obese patients so likely underestimated in this patient. - off diuretics today Anemia of chronic disease due to CKD: - On Epogen Essential Hypertension: - Continue on current regimen - Adjust medications as needed Diabetes Mellitus type 2 on insulin: - As per primary team Subjective Date of service: 08/19/18 Principal diagnosis: sob Interval history: remains to feel weak with SOB Objective - Vital Signs Vital signs: Vital Signs - 12hr 08/18/18 08/18/18 08/18/18 21:28 22:30 23:03 Temperature 99.4 F Pulse Rate 74 80 74 Respiratory 20 22 Rate Blood Pressure 149/68 O2 Sat by Pulse 94 96 Oximetry 08/19/18 08/19/18 08/19/18 02:54 03:26 05:58 Temperature 100.6 F H Pulse Rate 95 H 75 Respiratory 18 22 Rate Blood Pressure 126/63 126/63 O2 Sat by Pulse 91 Oximetry 08/19/18 07:37 Temperature 98.3 F Pulse Rate 77 Respiratory 18 Rate Blood Pressure 130/62 O2 Sat by Pulse 94 Oximetry - General Appearance General appearance: well-developed, well-nourished, obese EENT: ATNC, PERRL Neck: no JVD, no carotid bruit Respiratory: Present: Decreased Breath Sounds Cardiology: regular, S1S2 Gastrointestinal: normoactive bowel sounds, no tenderness, no distended, obese Integumentary: no rash, warm and dry Neurologic: no focal deficit, no asterixis, alert and oriented x3 Musculoskeletal: other (2-3+ pitting edema in BLE) - Lab 08/19/18 05:28 08/19/18 05:28 Most recent lab results Calcium 8.7 mg/dL (8.4-10.2) 08/19/18 05:28 22.4 mg/dL (0.1-20.0) H 08/17/18 04:00 132 mmol/L 08/17/18 04:00 79 mg/dL (5-11.8) H 08/17/18 04:00 Medications & Allergies - Medications Allergies/Adverse Reactions: Allergies canagliflozin [From Invokana] Allergy (Verified 08/15/18 17:49) Unknown IV CONTRAST DYE Allergy (Uncoded 08/15/18 17:49) Unknown Home Medications: Home Medications Medication Instructions Recorded Confirmed Last Taken Type Acetaminophen [Acetaminophen ER] 650 mg PO Q8HR PRN 08/16/18 08/16/18 Unknown History Amlodipine Besylate/Benazepril 1 each PO QDAY 08/16/18 08/16/18 Unknown History [Lotrel 10-40 mg] AtorvaSTATin [Lipitor] 40 mg PO QHS 08/16/18 08/16/18 Unknown History Cholecalciferol (Vitamin D3) 5,000 unit PO DAILY 08/16/18 08/16/18 Unknown History [Vitamin D3 5,000 UNIT] Doxylamine Succinate [Unisom] 25 mg PO QHS 08/16/18 08/16/18 Unknown History Gabapentin [Neurontin] 300 mg PO QHS 08/16/18 08/16/18 Unknown History Insulin Regular, Human [Humulin R 90 unit SQ BID 08/16/18 08/16/18 Unknown History U-500 Kwikpen] Loratadine [Claritin] 10 mg PO DAILY PRN 08/16/18 08/16/18 Unknown History Melatonin [Melatonin 3MG TAB] 3 mg PO QHS 08/16/18 08/16/18 Unknown History Niacin [Niacor] 500 mg PO DAILY 08/16/18 08/16/18 Unknown History Omeprazole 20 mg PO DAILY PRN 08/16/18 08/16/18 Unknown History Triamcinolone Acetonide [Nasacort 10.8 ml NS DAILY 08/16/18 08/16/18 Unknown History SPRAY] Active Medications: Generic Name Dose Route Start Last Admin Trade Name Freq PRN Reason Stop Dose Admin Acetaminophen 650 mg 08/16/18 03:07 08/18/18 17:00 Tylenol PO 650 mg Q4H PRN Administration Pain MILD(1-3)/Fever >100.5/FRAIRE Albuterol 2.5 mg 08/16/18 03:07 Proventil IH Q4HRT PRN Shortness Of Breath Aspirin 81 mg 08/16/18 10:00 08/19/18 09:13 Baby Aspirin PO 81 mg QDAY ARLENE Administration Atorvastatin Calcium 40 mg 08/16/18 22:00 08/18/18 21:28 Lipitor PO 40 mg QHS ARLENE Administration Carvedilol 6.25 mg 08/17/18 12:00 08/18/18 21:28 Coreg PO 6.25 mg BID ARLENE Administration Cholecalciferol 5,000 unit 08/16/18 10:00 08/19/18 09:12 Vitamin D3 PO 5,000 unit DAILY ARLENE Administration Dextrose 50 ml 08/16/18 03:13 D50w (25gm) Syringe IV PRN PRN Hypoglycemia Docusate Sodium 100 mg 08/16/18 10:00 08/19/18 09:13 Colace PO 100 mg BID ARLENE Administration Epoetin [place] 10,000 unit 08/18/18 13:00 08/18/18 13:33 Procrit SUB-Q 10,000 unit MOWEFR ARLENE Administration Gabapentin 300 mg 08/16/18 22:00 08/18/18 21:28 Neurontin PO 300 mg QHS ARLENE Administration Heparin Sodium (Porcine) 5,000 unit 08/16/18 10:00 08/18/18 21:29 Heparin SUB-Q 5,000 unit Q12HR ARLENE Administration Hydralazine HCl 50 mg 08/16/18 14:00 08/19/18 05:58 Apresoline PO 50 mg Q8HR ARLENE Administration Ceftriaxone Sodium 1 gm in 50 mls @ 100 mls/hr 08/18/18 15:00 08/18/18 16:46 Rocephin/Ns 1 Gm/50 Ml IV 100 mls/hr Q24HR ARLENE Administration Protocol Insulin Human Lispro 0 unit 08/16/18 07:30 08/19/18 08:50 Humalog SUB-Q 2 unit ACHS ARLENE Administration Protocol Insulin Human Regular 5 units 08/16/18 07:30 08/19/18 08:51 Humulin R SUB-Q 5 units AC ARLENE Administration Nitroglycerin 0.4 mg 08/16/18 03:07 Nitrostat SL .Q5MIN PRN Chest Pain Ondansetron HCl 4 mg 08/16/18 03:07 08/16/18 16:39 Zofran IV 4 mg Q8H PRN Administration Nausea And Vomiting Oxycodone/Acetaminophen 1 tab 08/16/18 03:07 08/19/18 05:57 Percocet 5/325 PO 1 tab Q6H PRN Administration Pain, Moderate (4-6) Sodium Chloride 10 ml 08/16/18 10:00 08/18/18 21:30 Sodium Chloride Flush Syringe 10 Ml IV 10 ml BID ARLENE Administration Sodium Chloride 10 ml 08/16/18 03:07 08/16/18 06:17 Sodium Chloride Flush Syringe 10 Ml IV 10 ml PRN PRN Administration LINE FLUSH
[2018-08-19] MEDS: SODIUM CHLORIDE FLUSH SYRINGE 10 ML IV SCH ×2 (10:00→23:26)
--- NOTE | 2018-08-19 11:14 | Progress Note ---
Assessment and Plan Serum Cr trending upwards. Per nephrology, may require CONTINUING EDUCATION DEAN within the next 24-48 hours. Cont present cardiac management. The patient has been seen in conjunction with Dr. Rizvi who agrees with the assessment and plan of care. - Patient Problems (1) Anasarca Current Visit: Yes Status: Acute (2) Acute heart failure with preserved ejection fraction Current Visit: Yes Status: Acute Qualifiers: Heart failure type: diastolic Heart failure chronicity: acute Qualified Code(s): I50.31 - Acute diastolic (congestive) heart failure (3) ROSEMARY on CKD Current Visit: Yes Status: Acute Qualifiers: Chronic kidney disease stage: stage 3 (moderate) Qualified Code(s): N18.3 - Chronic kidney disease, stage 3 (moderate) (4) Essential hypertension Current Visit: Yes Status: Chronic (5) Hyperlipemia, mixed Current Visit: Yes Status: Chronic (6) Morbid obesity Current Visit: Yes Status: Chronic Subjective Date of service: 08/19/18 Principal diagnosis: sob Interval history: pt sitting up at bedside, BLE edema and scrotal edema persist. Objective Last Vital Signs Temp 98.3 F 08/19/18 07:37 Pulse 77 08/19/18 09:15 Resp 18 08/19/18 07:37 BP 130/62 08/19/18 09:15 Pulse Ox 92 08/19/18 10:00 - Physical Examination General: Appears Well HEENT: Positive: PERRL, Mucus Membranes Moist Neck: Positive: neck supple, trachea midline Cardiac: Positive: Reg Rate and Rhythm, S1/S2 Lungs: Positive: Decreased Breath Sounds Neuro: Positive: Grossly Intact Abdomen: Positive: Soft, Active Bowel Sounds. Negative: Tender, Distended Skin: Positive: Clear Incision: Cardiac Cath Site Musculoskeletal: No Pain, Normal Range of Motion Extremities: Present: normal, edema, +1 Edema, Other (scrotal edema) - Labs and Meds CBC 08/19/18 Range/Units 05:28 WBC 4.6 (4.5-11.0) K/mm3 RBC 3.68 (3.65-5.03) M/mm3 Hgb 9.7 L (11.8-15.2) gm/dl Hct 30.1 L (35.5-45.6) % Plt Count 136 L (140-440) K/mm3 Comprehensive Metabolic Panel 05/28/19 Range/Units 05:28 Sodium 134 L (137-145) mmol/L Potassium 4.7 (3.6-5.0) mmol/L Chloride 96.2 L (98-107) mmol/L Carbon Dioxide 23 (22-30) mmol/L BUN 55 H (9-20) mg/dL Creatinine 4.4 H (0.8-1.5) mg/dL Glucose 118 H (75-100) mg/dL Calcium 8.7 (8.4-10.2) mg/dL - Imaging and Cardiology EKG: image reviewed (sinus rhythm at 76 bpm) Echo: report reviewed (2015 normal LV function.Positive bubble study PFO), other (08/17/2018 normal LV function and diastolic dysfunction mild to moderate LVH no significant regurgitations) - Telemetry EKG Rhythm: Sinus Rhythm
--- NOTE | 2018-08-19 14:54 | XRay Report ---
AP CHEST :08/16/18 03:07:00 CLINICAL: Difficulty breathing. COMPARISON:08/17/18 FINDINGS: Considering differences in technique, Little change compared to the last exam.The heart is normal size. Normal pulmonary vessels. The lungs are normally expanded and clear. The costophrenic angles are opacified this may be due to low lung volumes. IMPRESSION: No pulmonary edema or pneumonia.
--- NOTE | 2018-08-19 14:56 | Progress Note ---
Assessment and Plan Patient is sleeping on CPAP but easily arousable. Patient is using BIPAP at home . Switching CPAP to BIPAP. No acute respiratory distress. O2 saturation running 92%. Chest Xray results pending. - Patient Problems (1) CHF (congestive heart failure) Current Visit: Yes Status: Acute Qualifiers: Heart failure type: diastolic Heart failure chronicity: acute Qualified Code(s): I50.31 - Acute diastolic (congestive) heart failure Plan to address problem: Management as per cardiology. (2) CKD (chronic kidney disease) Current Visit: Yes Status: Acute Qualifiers: Chronic kidney disease stage: stage 3 (moderate) Qualified Code(s): N18.3 - Chronic kidney disease, stage 3 (moderate) Plan to address problem: Management as per nephrology. (3) HANSEN (dyspnea on exertion) Current Visit: Yes Status: Acute Plan to address problem: Albuterol aerosol treatments q 6 hours prn for shortness of breath. O2 2 litres via nasal canula Recommend V/Q scan Continue S/C Heparin. ABGs on room air. (4) Elevated d-dimer Current Visit: Yes Status: Acute Plan to address problem: Venous doppler studies reported negative for DVT. Recommend V/Q scan Continue S/C heparin. (5) Essential hypertension Current Visit: Yes Status: Chronic Plan to address problem: Management as per primary care. (6) Morbid obesity Current Visit: Yes Status: Chronic Plan to address problem: Recommend to loose weight. Exercise and diet. (7) Sleep apnea with use of continuous positive airway pressure (CPAP) Current Visit: Yes Status: Acute Plan to address problem: Continue BIPAP as using at home. Subjective Date of service: 08/19/18 Principal diagnosis: sob Interval history: Patient is sleeping on CPAP but easily arousable. Patient is using BIPAP at home . Switching CPAP to BIPAP. No acute respiratory distress. O2 saturation running 92%. Chest Xray results pending. Objective Vital Signs - 12hr 08/19/18 08/19/18 08/19/18 02:54 03:26 05:58 Temperature 100.6 F H Pulse Rate 95 H 75 Respiratory 18 22 Rate Blood Pressure 126/63 126/63 O2 Sat by Pulse 91 Oximetry 08/19/18 08/19/18 08/19/18 07:37 09:15 10:00 Temperature 98.3 F Pulse Rate 77 77 Respiratory 18 Rate Blood Pressure 130/62 130/62 O2 Sat by Pulse 94 92 Oximetry 08/19/18 08/19/18 11:01 13:48 Temperature Pulse Rate 70 Respiratory 18 Rate Blood Pressure 120/52 O2 Sat by Pulse Oximetry Constitutional: no acute distress, alert, other (Morbidly Obese.) Eyes: non-icteric ENT: oropharynx moist Neck: supple, no JVD Ascultation: Bilateral: diminished breath sounds Cardiovascular: regular rate and rhythm Gastrointestinal: normoactive bowel sounds, soft, non-tender Integumentary: cellulitis, other (Cellulitis and wounds in both lower legs.) Extremities: edema Neurologic: normal mental status, non-focal exam, pupils equal and round, CN II- XII normal Psychiatric: mood appropriate CBC and BMP: 08/19/18 05:28 08/19/18 05:28 ABG, PT/INR, D-dimer: PT/INR, D-dimer 463.24 ng/mlDDU (0-234) H 08/15/18 21:24 Abnormal lab findings: Abnormal Labs 08/15/18 08/15/18 08/15/18 18:02 18:54 18:54 RBC 3.61 L Hgb 9.8 L Hct 30.1 L MCV MCH 27 L RDW 16.8 H Plt Count [place] % (Auto) 10.7 H Eos % (Auto) 5.9 H D-Dimer Sodium Chloride 107.7 H BUN 25 H Creatinine 2.5 H Glucose 159 H POC Glucose 124 H Hemoglobin A1c Iron Total Creatine Kinase CK-MB (CK-2) Albumin 3.2 L HDL Cholesterol Urine Creatinine Urine Total Protein 08/15/18 08/15/18 08/16/18 21:24 21:24 03:37 RBC Hgb Hct MCV MCH RDW Plt Count [place] % (Auto) Eos % (Auto) D-Dimer 463.24 H Sodium Chloride BUN Creatinine Glucose POC Glucose Hemoglobin A1c 7.4 H Iron Total Creatine Kinase 340 H CK-MB (CK-2) 5.0 H Albumin HDL Cholesterol Urine Creatinine Urine Total Protein 08/16/18 08/16/18 08/16/18 03:37 07:54 12:01 RBC Hgb Hct MCV MCH RDW Plt Count [place] % (Auto) Eos % (Auto) D-Dimer Sodium Chloride BUN Creatinine Glucose POC Glucose 113 H 179 H Hemoglobin A1c Iron Total Creatine Kinase CK-MB (CK-2) Albumin HDL Cholesterol 37 L Urine Creatinine Urine Total Protein 08/16/18 08/16/18 08/16/18 13:52 17:44 21:21 RBC Hgb Hct MCV MCH RDW Plt Count [place] % (Auto) Eos % (Auto) D-Dimer Sodium Chloride BUN Creatinine Glucose POC Glucose 221 H 165 H Hemoglobin A1c Iron 30 L Total Creatine Kinase CK-MB (CK-2) Albumin HDL Cholesterol Urine Creatinine Urine Total Protein 08/17/18 08/17/18 08/17/18 04:00 07:30 07:30 RBC Hgb 10.3 L Hct 31.5 L MCV 82 L MCH 27 L RDW 16.8 H Plt Count [place] % (Auto) 14.0 H Eos % (Auto) 6.6 H D-Dimer Sodium Chloride BUN 32 H Creatinine 2.9 H Glucose 180 H POC Glucose Hemoglobin A1c Iron Total Creatine Kinase CK-MB (CK-2) Albumin HDL Cholesterol Urine Creatinine 22.4 H Urine Total Protein 79 H 08/17/18 08/17/18 08/17/18 07:34 12:17 16:36 RBC Hgb Hct MCV MCH RDW Plt Count [place] % (Auto) Eos % (Auto) D-Dimer Sodium Chloride BUN Creatinine Glucose POC Glucose 169 H 207 H 184 H Hemoglobin A1c Iron Total Creatine Kinase CK-MB (CK-2) Albumin HDL Cholesterol Urine Creatinine Urine Total Protein 08/17/18 08/18/18 08/18/18 21:17 07:05 07:53 RBC Hgb Hct MCV MCH RDW Plt Count [place] % (Auto) Eos % (Auto) D-Dimer Sodium 134 L Chloride 95.9 L BUN 43 H Creatinine 3.8 H Glucose 150 H POC Glucose 209 H 139 H Hemoglobin A1c Iron Total Creatine Kinase CK-MB (CK-2) Albumin HDL Cholesterol Urine Creatinine Urine Total Protein 08/18/18 08/18/18 08/18/18 08:34 11:53 15:54 RBC Hgb 10.8 L Hct 33.8 L MCV MCH 27 L RDW 16.3 H Plt Count [place] % (Auto) Eos % (Auto) D-Dimer Sodium Chloride BUN Creatinine Glucose POC Glucose 191 H 150 H Hemoglobin A1c Iron Total Creatine Kinase CK-MB (CK-2) Albumin HDL Cholesterol Urine Creatinine Urine Total Protein 08/18/18 08/19/18 08/19/18 20:49 05:28 05:28 RBC Hgb 9.7 L Hct 30.1 L MCV 82 L MCH 26 L RDW 16.6 H Plt Count 136 L [place] % (Auto) Eos % (Auto) D-Dimer Sodium 134 L Chloride 96.2 L BUN 55 H Creatinine 4.4 H Glucose 118 H POC Glucose 138 H Hemoglobin A1c Iron Total Creatine Kinase CK-MB (CK-2) Albumin HDL Cholesterol Urine Creatinine Urine Total Protein 08/19/18 08/19/18 07:43 11:57 RBC Hgb Hct MCV MCH RDW Plt Count [place] % (Auto) Eos % (Auto) D-Dimer Sodium Chloride BUN Creatinine Glucose POC Glucose 162 H 280 H Hemoglobin A1c Iron Total Creatine Kinase CK-MB (CK-2) Albumin HDL Cholesterol Urine Creatinine Urine Total Protein Chest x-ray: pending (Official report pending), image reviewed
--- NOTE | 2018-08-19 15:24 | Nuclear Medicine Report ---
LUNG SCAN, VENTILATION AND PERFUSION: History: Short of breath. Technique: 5mci of Tc99m MAA was infused for the perfusion images. 15mci XE 133 gas was inhaled for the ventilatory images. Correlation is made with a chest x-ray dated 08/19/18. Findings: Inhalation of Xenon gas demonstrates a normal distribution of the activity throughout both lungs. The wash out phases show mild retention of the radiotracer bilaterally consistent with obstructive pulmonary disease. After injection of Technetium 99m macroaggregated albumin gamma camera imaging of the lungs in multiple projections demonstrates normal pulmonary contours with a homogeneous distribution of activity. No focal areas of perfusion deficiency are identified. IMPRESSION: Low probability for pulmonary embolus.
[2018-08-19] MEDS: NEURONTIN PO SCH (22:27)
[2018-08-20] MEDS: APRESOLINE PO SCH ×3 (05:32→22:33)
[2018-08-20 06:19] LABS: Hematocrit 29.5 % (35.5-45.6); Hemoglobin 9.4 gm/dl (11.8-15.2); Mean Corpuscular HGB Conc 32 % (32-34); Mean Corpuscular Volume 83 fl (84-94); Platelet Count 121 K/mm3 (140-440); Red Blood Count 3.58 M/mm3 (3.65-5.03); Red Cell Distribution Width 16.4 % (13.2-15.2)
[2018-08-20 06:31] LABS: Calcium 8.7 mg/dL (8.4-10.2)
[2018-08-20 07:07] LABS: Total Cells Counted 100
[2018-08-20 07:08] LABS: Anisocytosis 1+; Ovalocytes Few; Platelet Estimate Consistent w Auto; Poikilocytosis 1+
[2018-08-20] MEDS: VITAMIN D3 PO SCH (09:23)
[2018-08-20] MEDS: HEPARIN SUB-Q SCH ×2 (09:23→22:34)
[2018-08-20] MEDS: COLACE PO SCH ×2 (09:24→22:32)
[2018-08-20] MEDS: HumuLIN R SUB-Q SCH ×3 (09:24→18:49)
[2018-08-20] MEDS: BABY ASPIRIN PO SCH (09:24)
[2018-08-20] MEDS: COREG PO SCH ×2 (09:24→22:32)
[2018-08-20] MEDS: HumaLOG SUB-Q SCH ×4 (09:25→22:33)
[2018-08-20] MEDS: SODIUM CHLORIDE FLUSH SYRINGE 10 ML IV SCH ×2 (09:25→22:41)
--- NOTE | 2018-08-20 10:08 | Progress Note ---
Assessment and Plan Assessment and plan: BLE and scrotal edema, work up for CHF underway: ECHO reviewed, treated with La six 40mg BID, now on hold b/c worsening renal function, Cardiology is following SIRS. 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 Pt scrotum is swollen obstructing view of his penis. Currently patient is on 2L supplemental O2 with saturation of 94%. D-dimer slightly elevated at 463.24. CK-MB elevated at 5.0; troponin negative. 2D ECHO conclusions Global LV systolic function is normal, estimated estimated EF is 55- 60%; abnormal LV diastolic dysfunction, mild to moderate concentric LV hypertrophy, trace mr, tr, RVSP calculated at 57 mmHg, Hospitalist Physical - Constitutional Vitals: Temp Pulse Resp BP Pulse Ox 98.0 F 71 20 122/57 96 08/20/18 08:42 08/20/18 08:42 08/20/18 08:42 08/20/18 08:42 08/20/18 08:42 General appearance: Present: no acute distress, well-nourished - EENT Eyes: Present: PERRL, EOM intact ENT: hearing intact, clear oral mucosa, dentition normal - Neck Neck: Present: supple, normal ROM - Respiratory Respiratory effort: normal Respiratory: bilateral: CTA - Cardiovascular Rhythm: regular Heart Sounds: Present: S1 & S2. Absent: gallop, rub - Extremities Extremities: no ischemia, No edema, Full ROM - Abdominal General gastrointestinal: soft, non-tender, non-distended, normal bowel sounds - Integumentary Integumentary: Present: clear, warm, dry - Neurologic Neurologic: CNII-XII intact, moves all extremities Results - Labs CBC & Chem 7: 08/20/18 04:53 08/20/18 04:53 Labs: Laboratory Last Values WBC 3.5 K/mm3 (4.5-11.0) L 08/20/18 04:53 RBC 3.58 M/mm3 (3.65-5.03) L 08/20/18 04:53 Hgb 9.4 gm/dl (11.8-15.2) L 08/20/18 04:53 Hct 29.5 % (35.5-45.6) L 08/20/18 04:53 MCV 83 fl (84-94) L 08/20/18 04:53 MCH 26 pg (28-32) L 08/20/18 04:53 MCHC 32 % (32-34) 08/20/18 04:53 RDW 16.4 % (13.2-15.2) H 08/20/18 04:53 Plt Count 121 K/mm3 (140-440) L 08/20/18 04:53 Lymph % (Auto) 26.6 % (13.4-35.0) 08/17/18 07:30 [place]oshone % (Auto) 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 08/20/18 04:53 Eos % (Auto) 6.6 % (0.0-4.3) H 08/17/18 07:30 Baso % (Auto) 1.1 % (0.0-1.8) 08/17/18 07:30 Lymph # 1.3 K/mm3 (1.2-5.4) 08/17/18 07:30 Shoshone # 0.7 K/mm3 (0.0-0.8) 08/17/18 07:30 Eos # 0.3 K/mm3 (0.0-0.4) 08/17/18 07:30 Baso # 0.1 K/mm3 (0.0-0.1) 08/17/18 07:30 Add Manual Diff Complete 08/20/18 04:53 Total Counted 100 08/20/18 04:53 Seg Neutrophils % 51.7 % (40.0-70.0) 08/17/18 07:30 Seg Neuts % (Manual) 46.0 % (40.0-70.0) 08/20/18 04:53 0 % 08/20/18 04:53 33.0 % (13.4-35.0) 08/20/18 04:53 Reactive Lymphs % (Man) 0 % 08/20/18 04:53 16.0 % (0.0-7.3) H 08/20/18 04:53 2.0 % (0.0-4.3) 08/20/18 04:53 3.0 % (0.0-1.8) H 08/20/18 04:53 0 % 08/20/18 04:53 0 % 08/20/18 04:53 0 % 08/20/18 04:53 0 % 08/20/18 04:53 Nucleated RBC % Not Reportable 08/20/18 04:53 Seg Neutrophils # 2.6 K/mm3 (1.8-7.7) 08/17/18 07:30 Seg Neutrophils # Man 1.6 K/mm3 (1.8-7.7) L 08/20/18 04:53 Band Neutrophils # 0.0 K/mm3 08/20/18 04:53 1.2 K/mm3 (1.2-5.4) 08/20/18 04:53 Abs React Lymphs (Man) 0.0 K/mm3 08/20/18 04:53 0.6 K/mm3 (0.0-0.8) 08/20/18 04:53 0.1 K/mm3 (0.0-0.4) 08/20/18 04:53 0.1 K/mm3 (0.0-0.1) 08/20/18 04:53 0.0 K/mm3 08/20/18 04:53 0.0 K/mm3 08/20/18 04:53 0.0 K/mm3 08/20/18 04:53 Blast Cells # 0.0 K/mm3 08/20/18 04:53 WBC Morphology Not Reportable 08/20/18 04:53 Hypersegmented Neuts Not Reportable 08/20/18 04:53 Hyposegmented Neuts Not Reportable 08/20/18 04:53 Hypogranular Neuts Not Reportable 08/20/18 04:53 Not Reportable 08/20/18 04:53 Not Reportable 08/20/18 04:53 Not Reportable 08/20/18 04:53 Not Reportable 08/20/18 04:53 Not Reportable 08/20/18 04:53 Not Reportable 08/20/18 04:53 Consistent w auto 08/20/18 04:53 Not Reportable 08/20/18 04:53 Plt Clumps, EDTA Not Reportable 08/20/18 04:53 Not Reportable 08/20/18 04:53 Not Reportable 08/20/18 04:53 Not Reportable 08/20/18 04:53 Plt Morphology Comment Not Reportable 08/20/18 04:53 RBC Morphology Not Reportable 08/20/18 04:53 Dimorphic RBCs Not Reportable 08/20/18 04:53 Not Reportable 08/20/18 04:53 Not Reportable 08/20/18 04:53 1+ 08/20/18 04:53 1+ 08/20/18 04:53 Not Reportable 08/20/18 04:53 Not Reportable 08/20/18 04:53 Not Reportable 08/20/18 04:53 Not Reportable 08/20/18 04:53 Not Reportable 08/20/18 04:53 Not Reportable 08/20/18 04:53 Not Reportable 08/20/18 04:53 Few 08/20/18 04:53 Not Reportable 08/20/18 04:53 Not Reportable 08/20/18 04:53 Not Reportable 08/20/18 04:53 Not Reportable 08/20/18 04:53 Not Reportable 08/20/18 04:53 Not Reportable 08/20/18 04:53 Few 08/20/18 04:53 Acanthocytes (Spur) Not Reportable 08/20/18 04:53 Rouleaux Not Reportable 08/20/18 04:53 Not Reportable 08/20/18 04:53 Not Reportable 08/20/18 04:53 Not Reportable 08/20/18 04:53 Not Reportable 08/20/18 04:53 Hem Pathologist Commnt No 08/20/18 04:53 463.24 ng/mlDDU (0-234) H 08/15/18 21:24 Sodium 136 mmol/L (137-145) L 08/20/18 04:53 Potassium 4.4 mmol/L (3.6-5.0) 08/20/18 04:53 Chloride 98.8 mmol/L (98-107) 08/20/18 04:53 Carbon Dioxide 25 mmol/L (22-30) 08/20/18 04:53 17 mmol/L 08/20/18 04:53 BUN 57 mg/dL (9-20) H 08/20/18 04:53 3.3 mg/dL (0.8-1.5) H 08/20/18 04:53 Estimated GFR 19 ml/min 08/20/18 04:53 17 % 08/20/18 04:53 Glucose 136 mg/dL (75-100) H 08/20/18 04:53 POC Glucose 124 (70-105) H 08/20/18 08:13 7.4 % (4-6) H 08/16/18 03:37 Lactic Acid 0.70 mmol/L (0.7-2.0) 08/20/18 04:53 Calcium 8.7 mg/dL (8.4-10.2) 08/20/18 04:53 Phosphorus 5.50 mg/dL (2.5-4.5) H 08/20/18 04:53 Iron 30 ug/dL (49-181) L 08/16/18 13:52 TIBC 352 mcg/dL (250-450) 08/16/18 13:52 78.2 ng/mL (13.0-400.0) 08/18/18 08:34 0.40 mg/dL (0.1-1.2) 08/15/18 18:54 AST 25 units/L (5-40) 08/15/18 18:54 ALT 15 units/L (7-56) 08/15/18 18:54 74 units/L (35-129) 08/15/18 18:54 340 units/L (55-170) H 08/15/18 21:24 CK-MB (CK-2) 5.0 ng/mL (0.0-4.0) H 08/15/18 21:24 CK-MB (CK-2) Rel Index 1.4 (0-4) 08/15/18 21:24 0.026 ng/mL (0.00-0.029) 08/15/18 21:24 NT-Pro-B Natriuret Pep 877.6 pg/mL (0-900) 08/17/18 11:13 6.7 g/dL (6.3-8.2) 08/15/18 18:54 3.2 g/dL (3.9-5) L 08/15/18 18:54 0.9 % 08/15/18 18:54 Triglycerides 140 mg/dL (2-149) 08/16/18 03:37 Cholesterol 147 mg/dL (50-199) 08/16/18 03:37 88 mg/dL (50-130) 08/16/18 03:37 37 mg/dL (40-59) L 08/16/18 03:37 3.97 % 08/16/18 03:37 Straw (Yellow) 08/17/18 04:00 Clear (Clear) 08/17/18 04:00 7.0 (5.0-7.0) 08/17/18 04:00 Ur Specific [place] 1.006 (1.003-1.030) 08/17/18 04:00 100 mg/dl mg/dL (Negative) 08/17/18 04:00 Neg mg/dL (Negative) 08/17/18 04:00 Neg mg/dL (Negative) 08/17/18 04:00 Neg (Negative) 08/17/18 04:00 Neg (Negative) 08/17/18 04:00 Neg (Negative) 08/17/18 04:00 < 2.0 mg/dL (<2.0) 08/17/18 04:00 Ur Leukocyte Esterase Neg (Negative) 08/17/18 04:00 < 1.0 /HPF (0.0-6.0) 08/17/18 04:00 2.0 /HPF (0.0-6.0) 08/17/18 04:00 U Epithel Cells (Auto) 1.0 /HPF (0-13.0) 08/15/18 18:47 1+ /HPF (Negative) 08/17/18 04:00 Few /HPF 08/15/18 18:47 None seen (None Seen) 08/17/18 04:00 22.4 mg/dL (0.1-20.0) H 08/17/18 04:00 Protein/Creatinin Ratio 3.53 08/17/18 04:00 132 mmol/L 08/17/18 04:00 106 08/17/18 04:00 79 mg/dL (5-11.8) H 08/17/18 04:00 144 mg/dL (82-185) 08/17/18 11:13 23 mg/dL (15-53) 08/17/18 11:13 RPR Nonreactive (Nonreactive) 08/17/18 11:13 Hepatitis A IgM Ab Non-reactive (NonReactive) 08/17/18 11:13 Hep Bs Antigen Non-reactive (Negative) 08/17/18 11:13 Hep B Core IgM Ab Non-reactive (NonReactive) 08/17/18 11:13 Non-reactive (NonReactive) 08/17/18 11:13 HIV 1&2 Antibody Rapid Non react (Non React) 08/17/18 11:13 Non react (Non React) 08/17/18 11:13 Active Medications - Current Medications Current Medications: Generic Name Dose Route Start Last Admin Trade Name Freq PRN Reason Stop Dose Admin Acetaminophen 650 mg 08/16/18 03:07 08/19/18 09:15 Tylenol PO 650 mg Q4H PRN Administration Pain MILD(1-3)/Fever >100.5/FRAIRE Albuterol 2.5 mg 08/16/18 03:07 Proventil IH Q4HRT PRN Shortness Of Breath Aspirin 81 mg 08/16/18 10:00 08/20/18 09:24 Baby Aspirin PO 81 mg QDAY ARLENE Administration Atorvastatin Calcium 40 mg 08/16/18 22:00 08/19/18 22:27 Lipitor PO 40 mg QHS ARLENE Administration Carvedilol 6.25 mg 08/17/18 12:00 08/20/18 09:24 Coreg PO 6.25 mg BID ARLENE Administration Cholecalciferol 5,000 unit 08/16/18 10:00 08/20/18 09:23 Vitamin D3 PO 5,000 unit DAILY ARLENE Administration Dextrose 50 ml 08/16/18 03:13 D50w (25gm) Syringe IV PRN PRN Hypoglycemia Docusate Sodium 100 mg 08/16/18 10:00 08/20/18 09:24 Colace PO 100 mg BID ARLENE Administration Epoetin Keon 10,000 unit 08/18/18 13:00 08/18/18 13:33 Procrit SUB-Q 10,000 unit MOWEFR ARLENE Administration Gabapentin 300 mg 08/16/18 22:00 08/19/18 22:27 Neurontin PO 300 mg QHS ARLENE Administration Heparin Sodium (Porcine) 5,000 unit 08/16/18 10:00 08/20/18 09:23 Heparin SUB-Q 5,000 unit Q12HR ARLENE Administration Hydralazine HCl 50 mg 08/16/18 14:00 08/20/18 05:32 Apresoline PO 50 mg Q8HR ARLENE Administration Ceftriaxone Sodium 1 gm in 50 mls @ 100 mls/hr 08/18/18 15:00 08/19/18 09:14 Rocephin/Ns 1 Gm/50 Ml IV 100 mls/hr Q24HR [facility] Administration Protocol Insulin Human Lispro 0 unit 08/16/18 07:30 08/20/18 09:25 Humalog SUB-Q Not Given ACHS [facility] Protocol Insulin Human Regular 5 units 08/16/18 07:30 08/20/18 09:24 Humulin R SUB-Q 5 units AC ARLENE Administration Nitroglycerin 0.4 mg 08/16/18 03:07 Nitrostat SL .Q5MIN PRN Chest Pain Ondansetron HCl 4 mg 08/16/18 03:07 08/16/18 16:39 Zofran IV 4 mg Q8H PRN Administration Nausea And Vomiting Oxycodone/Acetaminophen 1 tab 08/16/18 03:07 08/19/18 05:57 Percocet 5/325 PO 1 tab Q6H PRN Administration Pain, Moderate (4-6) Sodium Chloride 10 ml 08/16/18 10:00 08/20/18 09:25 Sodium Chloride Flush Syringe 10 Ml IV 10 ml BID ARLENE Administration Sodium Chloride 10 ml 08/16/18 03:07 08/16/18 06:17 Sodium Chloride Flush Syringe 10 Ml IV 10 ml PRN PRN Administration LINE FLUSH Nutrition/Malnutrition Assess - Dietary Evaluation Nutrition/Malnutrition Findings: Nutrition Notes Start: 08/16/18 09:25 Freq: Status: Active Protocol: Document 08/19/18 14:48 NHALL (Rec: 08/19/18 14:54 GHASSAN SRW- [email or web address]) Nutrition Notes Initial or Follow up Brief Note Current Diagnosis CKD(stage I-IV),Diabetes Other Pertinent Diagnosis Fluid retention in scrotum and BLE edema, wounds on toe, heel and leg Current Diet Cardiac/consistent CHO Labs/Tests Na 134 BUN 55 Cr 4.4 Pertinent Medications Reviewed [place] Body Weight (kg) 0 Subjective/Other Information Pt reports good appetite; has been consuming 75-100% of meals. Nutrition Intervention Revisit per MD consult or patient Sign Off request:
--- NOTE | 2018-08-20 10:26 | Progress Note ---
Assessment and Plan Serum Cr improved today. Cont present cardiac management. The patient has been seen in conjunction with Dr. Rizvi who agrees with the ass essment and plan of care. - Patient Problems (1) Anasarca Current Visit: Yes Status: Acute (2) Acute heart failure with preserved ejection fraction Current Visit: Yes Status: Acute Qualifiers: Heart failure type: diastolic Heart failure chronicity: acute Qualified Code(s): I50.31 - Acute diastolic (congestive) heart failure (3) ROSEMARY on CKD Current Visit: Yes Status: Acute Qualifiers: Chronic kidney disease stage: stage 3 (moderate) Qualified Code(s): N18.3 - Chronic kidney disease, stage 3 (moderate) (4) Essential hypertension Current Visit: Yes Status: Chronic (5) Hyperlipemia, mixed Current Visit: Yes Status: Chronic (6) Morbid obesity Current Visit: Yes Status: Chronic Subjective Date of service: 08/20/18 Principal diagnosis: sob Interval history: pt sitting up at bedside, BLE edema and scrotal edema gradually improving. Objective Last Vital Signs Temp 98.0 F 08/20/18 08:42 Pulse 71 08/20/18 08:42 Resp 20 08/20/18 08:42 BP 122/57 08/20/18 08:42 Pulse Ox 98 08/20/18 10:00 - Physical Examination General: Appears Well HEENT: Positive: PERRL, Mucus Membranes Moist Neck: Positive: neck supple, trachea midline Cardiac: Positive: Reg Rate and Rhythm, S1/S2 Lungs: Positive: Decreased Breath Sounds Neuro: Positive: Grossly Intact Abdomen: Positive: Soft, Active Bowel Sounds. Negative: Tender, Distended Skin: Positive: Clear Incision: Cardiac Cath Site Musculoskeletal: No Pain, Normal Range of Motion Extremities: Present: normal, edema, +1 Edema, Other (scrotal edema) - Labs and Meds CBC 08/20/18 Range/Units 04:53 WBC 3.5 L (4.5-11.0) K/mm3 RBC 3.58 L (3.65-5.03) M/mm3 Hgb 9.4 L (11.8-15.2) gm/dl Hct 29.5 L (35.5-45.6) % Plt Count 121 L (140-440) K/mm3 Comprehensive Metabolic Panel 08/20/18 Range/Units 04:53 Sodium 136 L (137-145) mmol/L Potassium 4.4 (3.6-5.0) mmol/L Chloride 98.8 (98-107) mmol/L Carbon Dioxide 25 (22-30) mmol/L BUN 57 H (9-20) mg/dL Creatinine 3.3 H (0.8-1.5) mg/dL Glucose 136 H (75-100) mg/dL Calcium 8.7 (8.4-10.2) mg/dL - Imaging and Cardiology EKG: image reviewed (sinus rhythm at 76 bpm) Echo: report reviewed (2015 normal LV function.Positive bubble study PFO), other (08/17/2018 normal LV function and diastolic dysfunction mild to moderate LVH no significant regurgitations)
--- NOTE | 2018-08-20 11:11 | Progress Note ---
Assessment and Plan Acute kidney injury possibly ATN from Nephrotic range proteinuria, Cardiorenal syndrome on CKD: -Renal function reviewed. Serum creatinine trend down to 3.3 today from 4.4 yesterday -CXR yesterday on 08/19/18- showed no pulmonary edema or pneumonia. -VQ scan yesterday on 08/19/18- showed low probability for pulmonary embolism -Patient was on Lasix 40 mg IV QID which was stopped by Cardiology on 08/18/18 -Secondary GN workup in progress secondary to evaluation of Nephrotic Range proteinuria -HIV, RPR, Hepatitis panel results are negative -JELANI, Anti-DsDNA, SPEP, UPEP and Serum Immunofixation levels are still pending -Renal ultrasound on 08/16/18- Chronic medical renal disease. No Hydronephrosis. -No ACEI or ARB due to advanced renal failure -Renally dose all medications -Avoid Nephrotoxic agents -Strict I/O's monitoring -Mckeon Catheter: None present -No acute indication for DYE HOUSE HAND today but will likely need hemodialysis initiation for ultrafiltration -Will obtain a 24 hour urine collection for creatinine clearance -Will continue to monitor renal function closely Congestive Diastolic heart failure -Echo- LVEF is 55-60% -S/P IV Lasix -Cardiology onboard Anemia of chronic disease due to CKD: -On Epogen 10,000 units SQ every M,W,F -Monitor H/H Essential Hypertension: - Continue on current regimen - Adjust medications as needed Diabetes Mellitus type 2 on insulin: -On insulin as per primary team Subjective Date of service: 08/20/18 Principal diagnosis: sob Interval history: Patient seen sitting up in chair at bedside. Awake and alert. States he makes alot of urine. States he is open to dialysis if needed but hope if he has to do it, that it would not be long-term per patient. States his outpatient Supervisor Litharge is Dr. Joy Fonseca (female doctor) and that she wanted him to complete a 24 hour urine collection but he ended up in this hospital and so did not get it done. States he currently feels hot. Objective - Vital Signs Vital signs: Vital Signs - 12hr 08/19/18 08/19/18 08/20/18 23:25 23:32 03:21 Temperature 98.0 F 98.2 F Pulse Rate 68 65 Respiratory 16 20 Rate Blood Pressure 127/50 155/79 168/90 O2 Sat by Pulse 95 97 Oximetry 08/20/18 08/20/18 08/20/18 05:00 05:32 08:42 Temperature 98.0 F Pulse Rate 82 71 Respiratory 20 Rate Blood Pressure 168/90 122/57 O2 Sat by Pulse 96 Oximetry 08/20/18 10:00 Temperature Pulse Rate Respiratory Rate Blood Pressure O2 Sat by Pulse 98 Oximetry - General Appearance General appearance: well-developed, appears stated age, fatigue EENT: ATNC, PERRL, hearing intact, vision intact, other (Obese) Neck: no JVD, supple Respiratory: Present: Decreased Breath Sounds Cardiology: regular, S1S2 Gastrointestinal: normoactive bowel sounds, obese Integumentary: chronic venous stasis, other (has PVD) Neurologic: alert and oriented x3 Musculoskeletal: joint swelling, other (Has 2-3+ edema to BLE) - Lab 08/20/18 04:53 08/20/18 04:53 Most recent lab results Calcium 8.7 mg/dL (8.4-10.2) 08/20/18 04:53 Phosphorus 5.50 mg/dL (2.5-4.5) H 08/20/18 04:53 22.4 mg/dL (0.1-20.0) H 08/17/18 04:00 132 mmol/L 08/17/18 04:00 79 mg/dL (5-11.8) H 08/17/18 04:00 Medications & Allergies - Medications Allergies/Adverse Reactions: Allergies canagliflozin [From Invokana] Allergy (Verified 08/15/18 17:49) Unknown IV CONTRAST DYE Allergy (Uncoded 08/15/18 17:49) Unknown Home Medications: Home Medications Medication Instructions Recorded Confirmed Last Taken Type Acetaminophen [Acetaminophen ER] 650 mg PO Q8HR PRN 08/16/18 08/16/18 Unknown History Amlodipine Besylate/Benazepril 1 each PO QDAY 08/16/18 08/16/18 Unknown History [Lotrel 10-40 mg] AtorvaSTATin [Lipitor] 40 mg PO QHS 08/16/18 08/16/18 Unknown History Cholecalciferol (Vitamin D3) 5,000 unit PO DAILY 08/16/18 08/16/18 Unknown History [Vitamin D3 5,000 UNIT] Doxylamine Succinate [Unisom] 25 mg PO QHS 08/16/18 08/16/18 Unknown History Gabapentin [Neurontin] 300 mg PO QHS 08/16/18 08/16/18 Unknown History Insulin Regular, Human [Humulin R 90 unit SQ BID 08/16/18 08/16/18 Unknown History U-500 Kwikpen] Loratadine [Claritin] 10 mg PO DAILY PRN 08/16/18 08/16/18 Unknown History Melatonin [Melatonin 3MG TAB] 3 mg PO QHS 08/16/18 08/16/18 Unknown History Niacin [Niacor] 500 mg PO DAILY 08/16/18 08/16/18 Unknown History Omeprazole 20 mg PO DAILY PRN 08/16/18 08/16/18 Unknown History Triamcinolone Acetonide [Nasacort 10.8 ml NS DAILY 08/16/18 08/16/18 Unknown History SPRAY] Active Medications: Generic Name Dose Route Start Last Admin Trade Name Freq PRN Reason Stop Dose Admin Acetaminophen 650 mg 08/16/18 03:07 08/19/18 09:15 Tylenol PO 650 mg Q4H PRN Administration Pain MILD(1-3)/Fever >100.5/FRAIRE Albuterol 2.5 mg 08/16/18 03:07 Proventil IH Q4HRT PRN Shortness Of Breath Aspirin 81 mg 08/16/18 10:00 08/20/18 09:24 Baby Aspirin PO 81 mg QDAY ARLENE Administration Atorvastatin Calcium 40 mg 08/16/18 22:00 08/19/18 22:27 Lipitor PO 40 mg QHS ARLENE Administration Carvedilol 6.25 mg 08/17/18 12:00 08/20/18 09:24 Coreg PO 6.25 mg BID ARLENE Administration Cholecalciferol 5,000 unit 08/16/18 10:00 08/20/18 09:23 Vitamin D3 PO 5,000 unit DAILY ARLENE Administration Dextrose 50 ml 08/16/18 03:13 D50w (25gm) Syringe IV PRN PRN Hypoglycemia Docusate Sodium 100 mg 08/16/18 10:00 08/20/18 09:24 Colace PO 100 mg BID ARLENE Administration Epoetin [place] 10,000 unit 08/18/18 13:00 08/18/18 13:33 Procrit SUB-Q 10,000 unit MOWEFR ARLENE Administration Gabapentin 300 mg 08/16/18 22:00 08/19/18 22:27 Neurontin PO 300 mg QHS ARLENE Administration Heparin Sodium (Porcine) 5,000 unit 08/16/18 10:00 08/20/18 09:23 Heparin SUB-Q 5,000 unit Q12HR ARLENE Administration Hydralazine HCl 50 mg 08/16/18 14:00 08/20/18 05:32 Apresoline PO 50 mg Q8HR ARLENE Administration Ceftriaxone Sodium 1 gm in 50 mls @ 100 mls/hr 08/18/18 15:00 08/19/18 09:14 Rocephin/Ns 1 Gm/50 Ml IV 100 mls/hr Q24HR ARLENE Administration Protocol Insulin Human Lispro 0 unit 08/16/18 07:30 08/20/18 09:25 Humalog SUB-Q Not Given ACHS [facility] Protocol Insulin Human Regular 5 units 08/16/18 07:30 08/20/18 09:24 Humulin R SUB-Q 5 units AC ARLENE Administration Nitroglycerin 0.4 mg 08/16/18 03:07 Nitrostat SL .Q5MIN PRN Chest Pain Ondansetron HCl 4 mg 08/16/18 03:07 08/16/18 16:39 Zofran IV 4 mg Q8H PRN Administration Nausea And Vomiting Oxycodone/Acetaminophen 1 tab 08/16/18 03:07 08/19/18 05:57 Percocet 5/325 PO 1 tab Q6H PRN Administration Pain, Moderate (4-6) Sodium Chloride 10 ml 08/16/18 10:00 08/20/18 09:25 Sodium Chloride Flush Syringe 10 Ml IV 10 ml BID ARLENE Administration Sodium Chloride 10 ml 08/16/18 03:07 08/16/18 06:17 Sodium Chloride Flush Syringe 10 Ml IV 10 ml PRN PRN Administration LINE FLUSH
[2018-08-20] MEDS: ROCEPHIN/NS 1 GM/50 ML 1 GM/50 ML BAG IV SCH (13:14)
--- NOTE | 2018-08-20 13:20 | Progress Note ---
Assessment and Plan Assessment and plan: Anasarca and scrotal edema. Etiology likely secondary to hypoalbuminemia. Check albumin. SIRS. F/U blood cx Acute heart failure with preserved EF. Continue present management. No ACEI or ARB due to advanced renal failure Acute on Chronic kidney disease, stage 3: Creatinine has improved. Nephrology following. Patient with acute kidney injury possibly ATN from nephrotic range proteinuria. ? cardiorenal syndrome. Secondary GN workup in progress secondary to evaluation of Nephrotic Range proteinuria. HIV, RPR, Hepatitis panel results are negative, JELANI, Anti-DsDNA, SPEP, UPEP and Serum Immunofixation levels are still pending, Renal ultrasound on 08/16/18- Chronic medical renal disease. No Hydronephrosis. 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 Pt scrotum is swollen obstructing view of his penis. Currently patient is on 2L supplemental O2 with saturation of 94%. D-dimer slightly elevated at 463.24. CK-MB elevated at 5.0; troponin negative. 2D ECHO conclusions Global LV systolic function is normal, estimated estimated EF is 55- 60%; abnormal LV diastolic dysfunction, mild to moderate concentric LV hypertrophy, trace mr, tr, RVSP calculated at 57 mmHg, Hospitalist Physical - Constitutional Vitals: Temp Pulse Resp BP Pulse Ox 98.0 F 71 20 122/57 98 08/20/18 08:42 08/20/18 08:42 08/20/18 08:42 08/20/18 08:42 08/20/18 10:00 General appearance: Present: no acute distress, well-nourished - EENT Eyes: Present: PERRL, EOM intact ENT: hearing intact, clear oral mucosa, dentition normal - Neck Neck: Present: supple, normal ROM - Respiratory Respiratory effort: normal Respiratory: bilateral: CTA - Cardiovascular Rhythm: regular Heart Sounds: Present: S1 & S2. Absent: gallop, rub - Extremities Extremities: no ischemia, No edema, Full ROM - Abdominal General gastrointestinal: soft, non-tender, non-distended, normal bowel sounds - Integumentary Integumentary: Present: clear, warm, dry - Neurologic Neurologic: CNII-XII intact, moves all extremities Results - Labs CBC & Chem 7: 08/20/18 04:53 08/20/18 04:53 Labs: Laboratory Last Values WBC 3.5 K/mm3 (4.5-11.0) L 08/20/18 04:53 RBC 3.58 M/mm3 (3.65-5.03) L 08/20/18 04:53 Hgb 9.4 gm/dl (11.8-15.2) L 08/20/18 04:53 Hct 29.5 % (35.5-45.6) L 08/20/18 04:53 MCV 83 fl (84-94) L 08/20/18 04:53 MCH 26 pg (28-32) L 08/20/18 04:53 MCHC 32 % (32-34) 08/20/18 04:53 RDW 16.4 % (13.2-15.2) H 08/20/18 04:53 Plt Count 121 K/mm3 (140-440) L 08/20/18 04:53 Lymph % (Auto) 26.6 % (13.4-35.0) 08/17/18 07:30 [place] % (Auto) Fishing Guide 08/20/18 04:53 Eos % (Auto) 6.6 % (0.0-4.3) H 08/17/18 07:30 Baso % (Auto) 1.1 % (0.0-1.8) 08/17/18 07:30 Lymph # 1.3 K/mm3 (1.2-5.4) 08/17/18 07:30 [place] # 0.7 K/mm3 (0.0-0.8) 08/17/18 07:30 Eos # 0.3 K/mm3 (0.0-0.4) 08/17/18 07:30 Baso # 0.1 K/mm3 (0.0-0.1) 08/17/18 07:30 Add Manual Diff Complete 08/20/18 04:53 Total Counted 100 08/20/18 04:53 Seg Neutrophils % 51.7 % (40.0-70.0) 08/17/18 07:30 Seg Neuts % (Manual) 46.0 % (40.0-70.0) 08/20/18 04:53 0 % 08/20/18 04:53 33.0 % (13.4-35.0) 08/20/18 04:53 Reactive Lymphs % (Man) 0 % 08/20/18 04:53 16.0 % (0.0-7.3) H 08/20/18 04:53 2.0 % (0.0-4.3) 08/20/18 04:53 3.0 % (0.0-1.8) H 08/20/18 04:53 0 % 08/20/18 04:53 0 % 08/20/18 04:53 0 % 08/20/18 04:53 0 % 08/20/18 04:53 Nucleated RBC % Not Reportable 08/20/18 04:53 Seg Neutrophils # 2.6 K/mm3 (1.8-7.7) 08/17/18 07:30 Seg Neutrophils # Man 1.6 K/mm3 (1.8-7.7) L 08/20/18 04:53 Band Neutrophils # 0.0 K/mm3 08/20/18 04:53 1.2 K/mm3 (1.2-5.4) 08/20/18 04:53 Abs React Lymphs (Man) 0.0 K/mm3 08/20/18 04:53 0.6 K/mm3 (0.0-0.8) 08/20/18 04:53 0.1 K/mm3 (0.0-0.4) 08/20/18 04:53 0.1 K/mm3 (0.0-0.1) 08/20/18 04:53 0.0 K/mm3 08/20/18 04:53 0.0 K/mm3 08/20/18 04:53 0.0 K/mm3 08/20/18 04:53 Blast Cells # 0.0 K/mm3 08/20/18 04:53 WBC Morphology Not Reportable 08/20/18 04:53 Hypersegmented Neuts Not Reportable 08/20/18 04:53 Hyposegmented Neuts Not Reportable 08/20/18 04:53 Hypogranular Neuts Not Reportable 08/20/18 04:53 Not Reportable 08/20/18 04:53 Not Reportable 08/20/18 04:53 Not Reportable 08/20/18 04:53 Not Reportable 08/20/18 04:53 Not Reportable 08/20/18 04:53 Not Reportable 08/20/18 04:53 Consistent w auto 08/20/18 04:53 Not Reportable 08/20/18 04:53 Plt Clumps, EDTA Not Reportable 08/20/18 04:53 Not Reportable 08/20/18 04:53 Not Reportable 08/20/18 04:53 Not Reportable 08/20/18 04:53 Plt Morphology Comment Not Reportable 08/20/18 04:53 RBC Morphology Not Reportable 08/20/18 04:53 Dimorphic RBCs Not Reportable 08/20/18 04:53 Not Reportable 08/20/18 04:53 Not Reportable 08/20/18 04:53 1+ 08/20/18 04:53 1+ 08/20/18 04:53 Not Reportable 08/20/18 04:53 Not Reportable 08/20/18 04:53 Not Reportable 08/20/18 04:53 Not Reportable 08/20/18 04:53 Not Reportable 08/20/18 04:53 Not Reportable 08/20/18 04:53 Not Reportable 08/20/18 04:53 Few 08/20/18 04:53 Not Reportable 08/20/18 04:53 Not Reportable 08/20/18 04:53 Not Reportable 08/20/18 04:53 Not Reportable 08/20/18 04:53 Not Reportable 08/20/18 04:53 Not Reportable 08/20/18 04:53 Few 08/20/18 04:53 Acanthocytes (Spur) Not Reportable 08/20/18 04:53 Rouleaux Not Reportable 08/20/18 04:53 Not Reportable 08/20/18 04:53 Not Reportable 08/20/18 04:53 Not Reportable 08/20/18 04:53 Not Reportable 08/20/18 04:53 Hem Pathologist Commnt No 08/20/18 04:53 463.24 ng/mlDDU (0-234) H 08/15/18 21:24 Sodium 136 mmol/L (137-145) L 08/20/18 04:53 Potassium 4.4 mmol/L (3.6-5.0) 08/20/18 04:53 Chloride 98.8 mmol/L (98-107) 08/20/18 04:53 Carbon Dioxide 25 mmol/L (22-30) 08/20/18 04:53 17 mmol/L 08/20/18 04:53 BUN 57 mg/dL (9-20) H 08/20/18 04:53 3.3 mg/dL (0.8-1.5) H 08/20/18 04:53 Estimated GFR 19 ml/min 08/20/18 04:53 17 % 08/20/18 04:53 Glucose 136 mg/dL (75-100) H 08/20/18 04:53 POC Glucose 145 (70-105) H 08/20/18 12:49 7.4 % (4-6) H 08/16/18 03:37 Lactic Acid 0.70 mmol/L (0.7-2.0) 08/20/18 04:53 Calcium 8.7 mg/dL (8.4-10.2) 08/20/18 04:53 Phosphorus 5.50 mg/dL (2.5-4.5) H 08/20/18 04:53 Iron 30 ug/dL (49-181) L 08/16/18 13:52 TIBC 352 mcg/dL (250-450) 08/16/18 13:52 78.2 ng/mL (13.0-400.0) 08/18/18 08:34 0.40 mg/dL (0.1-1.2) 08/15/18 18:54 AST 25 units/L (5-40) 08/15/18 18:54 ALT 15 units/L (7-56) 08/15/18 18:54 74 units/L (35-129) 08/15/18 18:54 340 units/L (55-170) H 08/15/18 21:24 CK-MB (CK-2) 5.0 ng/mL (0.0-4.0) H 08/15/18 21:24 CK-MB (CK-2) Rel Index 1.4 (0-4) 08/15/18 21:24 0.026 ng/mL (0.00-0.029) 08/15/18 21:24 NT-Pro-B Natriuret Pep 877.6 pg/mL (0-900) 08/17/18 11:13 6.7 g/dL (6.3-8.2) 08/15/18 18:54 3.2 g/dL (3.9-5) L 08/15/18 18:54 0.9 % 08/15/18 18:54 Triglycerides 140 mg/dL (2-149) 08/16/18 03:37 Cholesterol 147 mg/dL (50-199) 08/16/18 03:37 88 mg/dL (50-130) 08/16/18 03:37 37 mg/dL (40-59) L 08/16/18 03:37 3.97 % 08/16/18 03:37 Straw (Yellow) 08/17/18 04:00 Clear (Clear) 08/17/18 04:00 7.0 (5.0-7.0) 08/17/18 04:00 Ur Specific [place] 1.006 (1.003-1.030) 08/17/18 04:00 100 mg/dl mg/dL (Negative) 08/17/18 04:00 Neg mg/dL (Negative) 08/17/18 04:00 Neg mg/dL (Negative) 08/17/18 04:00 Neg (Negative) 08/17/18 04:00 Neg (Negative) 08/17/18 04:00 Neg (Negative) 08/17/18 04:00 < 2.0 mg/dL (<2.0) 08/17/18 04:00 Ur Leukocyte Esterase Neg (Negative) 08/17/18 04:00 < 1.0 /HPF (0.0-6.0) 08/17/18 04:00 2.0 /HPF (0.0-6.0) 08/17/18 04:00 U Epithel Cells (Auto) 1.0 /HPF (0-13.0) 08/15/18 18:47 1+ /HPF (Negative) 08/17/18 04:00 Few /HPF 08/15/18 18:47 None seen (None Seen) 08/17/18 04:00 22.4 mg/dL (0.1-20.0) H 08/17/18 04:00 Protein/Creatinin Ratio 3.53 08/17/18 04:00 132 mmol/L 08/17/18 04:00 106 08/17/18 04:00 79 mg/dL (5-11.8) H 08/17/18 04:00 144 mg/dL (82-185) 08/17/18 11:13 23 mg/dL (15-53) 08/17/18 11:13 RPR Nonreactive (Nonreactive) 08/17/18 11:13 Hepatitis A IgM Ab Non-reactive (NonReactive) 08/17/18 11:13 Hep Bs Antigen Non-reactive (Negative) 08/17/18 11:13 Hep B Core IgM Ab Non-reactive (NonReactive) 08/17/18 11:13 Non-reactive (NonReactive) 08/17/18 11:13 HIV 1&2 Antibody Rapid Non react (Non React) 08/17/18 11:13 Non react (Non React) 08/17/18 11:13 Active Medications - Current Medications Current Medications: Generic Name Dose Route Start Last Admin Trade Name Freq PRN Reason Stop Dose Admin Acetaminophen 650 mg 08/16/18 03:07 08/19/18 09:15 Tylenol PO 650 mg Q4H PRN Administration Pain MILD(1-3)/Fever >100.5/FRAIRE Albuterol 2.5 mg 08/16/18 03:07 Proventil IH Q4HRT PRN Shortness Of Breath Aspirin 81 mg 08/16/18 10:00 08/20/18 09:24 Baby Aspirin PO 81 mg QDAY ARLENE Administration Atorvastatin Calcium 40 mg 08/16/18 22:00 08/19/18 22:27 Lipitor PO 40 mg QHS ARLENE Administration Carvedilol 6.25 mg 08/17/18 12:00 08/20/18 09:24 Coreg PO 6.25 mg BID ARLENE Administration Cholecalciferol 5,000 unit 08/16/18 10:00 08/20/18 09:23 Vitamin D3 PO 5,000 unit DAILY ARLENE Administration Dextrose 50 ml 08/16/18 03:13 D50w (25gm) Syringe IV PRN PRN Hypoglycemia Docusate Sodium 100 mg 08/16/18 10:00 08/20/18 09:24 Colace PO 100 mg BID ARLENE Administration Epoetin [place] 10,000 unit 08/18/18 13:00 08/18/18 13:33 Procrit SUB-Q 10,000 unit MOWEFR ARLENE Administration Gabapentin 300 mg 08/16/18 22:00 08/19/18 22:27 Neurontin PO 300 mg QHS ARLENE Administration Heparin Sodium (Porcine) 5,000 unit 08/16/18 10:00 08/20/18 09:23 Heparin SUB-Q 5,000 unit Q12HR ARLENE Administration Hydralazine HCl 50 mg 08/16/18 14:00 08/20/18 05:32 Apresoline PO 50 mg Q8HR ARLENE Administration Ceftriaxone Sodium 1 gm in 50 mls @ 100 mls/hr 08/18/18 15:00 08/19/18 09:14 Rocephin/Ns 1 Gm/50 Ml IV 100 mls/hr Q24HR [facility] Administration Protocol Insulin Human Lispro 0 unit 08/16/18 07:30 08/20/18 09:25 Humalog SUB-Q Not Given ACHS [facility] Protocol Insulin Human Regular 5 units 08/16/18 07:30 08/20/18 09:24 Humulin R SUB-Q 5 units AC ARLENE Administration Nitroglycerin 0.4 mg 08/16/18 03:07 Nitrostat SL .Q5MIN PRN Chest Pain Ondansetron HCl 4 mg 08/16/18 03:07 08/16/18 16:39 Zofran IV 4 mg Q8H PRN Administration Nausea And Vomiting Oxycodone/Acetaminophen 1 tab 08/16/18 03:07 08/19/18 05:57 Percocet 5/325 PO 1 tab Q6H PRN Administration Pain, Moderate (4-6) Sodium Chloride 10 ml 08/16/18 10:00 08/20/18 09:25 Sodium Chloride Flush Syringe 10 Ml IV 10 ml BID ARLENE Administration Sodium Chloride 10 ml 08/16/18 03:07 08/16/18 06:17 Sodium Chloride Flush Syringe 10 Ml IV 10 ml PRN PRN Administration LINE FLUSH Nutrition/Malnutrition Assess - Dietary Evaluation Nutrition/Malnutrition Findings: Nutrition Notes Start: 08/16/18 09:25 Freq: Status: Active Protocol: Document 08/19/18 14:48 GHASSAN (Rec: 08/19/18 14:54 GHASSAN [email or web address]) Nutrition Notes Initial or Follow up Brief Note Current Diagnosis CKD(stage I-IV),Diabetes Other Pertinent Diagnosis Fluid retention in scrotum and BLE edema, wounds on toe, heel and leg Current Diet Cardiac/consistent CHO Labs/Tests Na 134 BUN 55 Cr 4.4 Pertinent Medications Reviewed [place] Body Weight (kg) 0 Subjective/Other Information Pt reports good appetite; has been consuming 75-100% of meals. Nutrition Intervention Revisit per MD consult or patient Sign Off request:
[2018-08-20] MEDS: PROCRIT SUB-Q SCH (15:06)
--- NOTE | 2018-08-20 17:24 | Progress Note ---
Assessment and Plan Patient did not get his BiPAP as ordered last night. Placed of the order to go on BiPAP 53410. Patient awake, and resting on 3L of O2 at this time. O2 sat 99%. Patient alert, and no acute respiratory distress. - Patient Problems (1) CHF (congestive heart failure) Current Visit: Yes Status: Acute Qualifiers: Heart failure type: diastolic Heart failure chronicity: acute Qualified Code(s): I50.31 - Acute diastolic (congestive) heart failure Plan to address problem: Management as per cardiology. (2) CKD (chronic kidney disease) Current Visit: Yes Status: Acute Qualifiers: Chronic kidney disease stage: stage 3 (moderate) Qualified Code(s): N18.3 - Chronic kidney disease, stage 3 (moderate) Plan to address problem: Management as per nephrology. (3) HANSEN (dyspnea on exertion) Current Visit: Yes Status: Acute Plan to address problem: Albuterol aerosol treatments q 6 hours prn for shortness of breath. O2 3 litres via nasal canula Recommend V/Q scan Continue S/C Heparin. (4) Elevated d-dimer Current Visit: Yes Status: Acute Plan to address problem: Venous doppler studies reported negative for DVT. Recommend V/Q scan Continue S/C heparin. (5) Essential hypertension Current Visit: Yes Status: Chronic Plan to address problem: Management as per primary care. (6) Morbid obesity Current Visit: Yes Status: Chronic Plan to address problem: Recommend to loose weight. Exercise and diet. (7) Sleep apnea with use of continuous positive airway pressure (CPAP) Current Visit: Yes Status: Acute Plan to address problem: Continue BIPAP as using at home. Subjective Date of service: 08/20/18 Principal diagnosis: sob Interval history: Patient did not get his BiPAP as ordered last night. Placed of the order to go on BiPAP 18829. Patient awake, and resting on 3L of O2 at this time. O2 sat 99%. Patient alert, and no acute respiratory distress. Objective Vital Signs - 12hr 08/20/18 08/20/18 08/20/18 05:32 08:42 10:00 Temperature 98.0 F Pulse Rate 71 Respiratory 20 Rate Blood Pressure 168/90 122/57 O2 Sat by Pulse 96 98 Oximetry 08/20/18 12:45 Temperature 98.0 F Pulse Rate 68 Respiratory 20 Rate Blood Pressure 115/54 O2 Sat by Pulse 99 Oximetry Constitutional: no acute distress, alert, other (Morbidly Obese.) Eyes: non-icteric ENT: oropharynx moist Neck: supple, no JVD Ascultation: Bilateral: diminished breath sounds Cardiovascular: regular rate and rhythm Gastrointestinal: normoactive bowel sounds, soft, non-tender Integumentary: cellulitis, other (Cellulitis and wounds in both lower legs.) Extremities: edema Neurologic: normal mental status, non-focal exam, pupils equal and round, CN II- XII normal Psychiatric: mood appropriate CBC and BMP: 08/20/18 04:53 08/20/18 04:53 ABG, PT/INR, D-dimer: PT/INR, D-dimer 463.24 ng/mlDDU (0-234) H 08/15/18 21:24 Abnormal lab findings: Abnormal Labs 08/15/18 08/15/18 08/15/18 18:02 18:54 18:54 WBC RBC 3.61 L Hgb 9.8 L Hct 30.1 L MCV MCH 27 L RDW 16.8 H Plt Count [place] % (Auto) 10.7 H Eos % (Auto) 5.9 H Monocytes % (Manual) Basophils % (Manual) Seg Neutrophils # Man D-Dimer Sodium Chloride 107.7 H BUN 25 H Creatinine 2.5 H Glucose 159 H POC Glucose 124 H Hemoglobin A1c Phosphorus Iron Total Creatine Kinase CK-MB (CK-2) Albumin 3.2 L HDL Cholesterol Urine Creatinine Urine Total Protein 08/15/18 08/15/18 08/16/18 21:24 21:24 03:37 WBC RBC Hgb Hct MCV MCH RDW Plt Count [place] % (Auto) Eos % (Auto) Monocytes % (Manual) Basophils % (Manual) Seg Neutrophils # Man D-Dimer 463.24 H Sodium Chloride BUN Creatinine Glucose POC Glucose Hemoglobin A1c 7.4 H Phosphorus Iron Total Creatine Kinase 340 H CK-MB (CK-2) 5.0 H Albumin HDL Cholesterol Urine Creatinine Urine Total Protein 08/16/18 08/16/18 08/16/18 03:37 07:54 12:01 WBC RBC Hgb Hct MCV MCH RDW Plt Count [place] % (Auto) Eos % (Auto) Monocytes % (Manual) Basophils % (Manual) Seg Neutrophils # Man D-Dimer Sodium Chloride BUN Creatinine Glucose POC Glucose 113 H 179 H Hemoglobin A1c Phosphorus Iron Total Creatine Kinase CK-MB (CK-2) Albumin HDL Cholesterol 37 L Urine Creatinine Urine Total Protein 08/16/18 08/16/18 08/16/18 13:52 17:44 21:21 WBC RBC Hgb Hct MCV MCH RDW Plt Count [place] % (Auto) Eos % (Auto) Monocytes % (Manual) Basophils % (Manual) Seg Neutrophils # Sadi D-Dimer Sodium Chloride BUN Creatinine Glucose POC Glucose 221 H 165 H Hemoglobin A1c Phosphorus Iron 30 L Total Creatine Kinase CK-MB (CK-2) Albumin HDL Cholesterol Urine Creatinine Urine Total Protein 08/17/18 08/17/18 08/17/18 04:00 07:30 07:30 WBC RBC Hgb 10.3 L Hct 31.5 L MCV 82 L MCH 27 L RDW 16.8 H Plt Count [place] % (Auto) 14.0 H Eos % (Auto) 6.6 H Monocytes % (Manual) Basophils % (Manual) Seg Neutrophils # Sadi D-Dimer Sodium Chloride BUN 32 H Creatinine 2.9 H Glucose 180 H POC Glucose Hemoglobin A1c Phosphorus Iron Total Creatine Kinase CK-MB (CK-2) Albumin HDL Cholesterol Urine Creatinine 22.4 H Urine Total Protein 79 H 08/17/18 08/17/18 08/17/18 07:34 12:17 16:36 WBC RBC Hgb Hct MCV MCH RDW Plt Count [place] % (Auto) Eos % (Auto) Monocytes % (Manual) Basophils % (Manual) Seg Neutrophils # Sadi D-Dimer Sodium Chloride BUN Creatinine Glucose POC Glucose 169 H 207 H 184 H Hemoglobin A1c Phosphorus Iron Total Creatine Kinase CK-MB (CK-2) Albumin HDL Cholesterol Urine Creatinine Urine Total Protein 08/17/18 08/18/18 08/18/18 21:17 07:05 07:53 WBC RBC Hgb Hct MCV MCH RDW Plt Count [place] % (Auto) Eos % (Auto) Monocytes % (Manual) Basophils % (Manual) Seg Neutrophils # Man D-Dimer Sodium 134 L Chloride 95.9 L BUN 43 H Creatinine 3.8 H Glucose 150 H POC Glucose 209 H 139 H Hemoglobin A1c Phosphorus Iron Total Creatine Kinase CK-MB (CK-2) Albumin HDL Cholesterol Urine Creatinine Urine Total Protein 08/18/18 08/18/18 08/18/18 08:34 11:53 15:54 WBC RBC Hgb 10.8 L Hct 33.8 L MCV MCH 27 L RDW 16.3 H Plt Count [place] % (Auto) Eos % (Auto) Monocytes % (Manual) Basophils % (Manual) Seg Neutrophils # Sadi D-Dimer Sodium Chloride BUN Creatinine Glucose POC Glucose 191 H 150 H Hemoglobin A1c Phosphorus Iron Total Creatine Kinase CK-MB (CK-2) Albumin HDL Cholesterol Urine Creatinine Urine Total Protein 08/18/18 08/19/18 08/19/18 20:49 05:28 05:28 WBC RBC Hgb 9.7 L Hct 30.1 L MCV 82 L MCH 26 L RDW 16.6 H Plt Count 136 L [place] % (Auto) Eos % (Auto) Monocytes % (Manual) Basophils % (Manual) Seg Neutrophils # Sadi D-Dimer Sodium 134 L Chloride 96.2 L BUN 55 H Creatinine 4.4 H Glucose 118 H POC Glucose 138 H Hemoglobin A1c Phosphorus Iron Total Creatine Kinase CK-MB (CK-2) Albumin HDL Cholesterol Urine Creatinine Urine Total Protein 08/19/18 08/19/18 08/19/18 07:43 11:57 15:41 WBC RBC Hgb Hct MCV MCH RDW Plt Count [place] % (Auto) Eos % (Auto) Monocytes % (Manual) Basophils % (Manual) Seg Neutrophils # Sadi D-Dimer Sodium Chloride BUN Creatinine Glucose POC Glucose 162 H 280 H 167 H Hemoglobin A1c Phosphorus Iron Total Creatine Kinase CK-MB (CK-2) Albumin HDL Cholesterol Urine Creatinine Urine Total Protein 08/19/18 08/20/18 08/20/18 21:44 04:53 04:53 WBC 3.5 L RBC 3.58 L Hgb 9.4 L Hct 29.5 L MCV 83 L MCH 26 L RDW 16.4 H Plt Count 121 L [place] % (Auto) Eos % (Auto) Monocytes % (Manual) 16.0 H Basophils % (Manual) 3.0 H Seg Neutrophils # Sadi 1.6 L D-Dimer Sodium 136 L Chloride BUN 57 H Creatinine 3.3 H Glucose 136 H POC Glucose 234 H Hemoglobin A1c Phosphorus 5.50 H Iron Total Creatine Kinase CK-MB (CK-2) Albumin HDL Cholesterol Urine Creatinine Urine Total Protein 08/20/18 08/20/18 08:13 12:49 WBC RBC Hgb Hct MCV MCH RDW Plt Count [place] % (Auto) Eos % (Auto) Monocytes % (Manual) Basophils % (Manual) Seg Neutrophils # Man D-Dimer Sodium Chloride BUN Creatinine Glucose POC Glucose 124 H 145 H Hemoglobin A1c Phosphorus Iron Total Creatine Kinase CK-MB (CK-2) Albumin HDL Cholesterol Urine Creatinine Urine Total Protein Chest x-ray: report reviewed (IMPRESSION: No pulmonary edema or pneumonia.), image reviewed
[2018-08-20] MEDS: NEURONTIN PO SCH (22:33)
[2018-08-21 06:02] LABS: Hematocrit 28.4 % (35.5-45.6); Hemoglobin 9.2 gm/dl (11.8-15.2); Mean Corpuscular HGB Conc 32 % (32-34); Mean Corpuscular Volume 83 fl (84-94); Platelet Count 126 K/mm3 (140-440); Red Blood Count 3.42 M/mm3 (3.65-5.03); Red Cell Distribution Width 16.4 % (13.2-15.2)
[2018-08-21] MEDS: APRESOLINE PO SCH ×3 (06:22→21:48)
[2018-08-21 06:34] LABS: Calcium 8.5 mg/dL (8.4-10.2)
[2018-08-21 06:53] LABS: Anisocytosis 1+; Basophils % (Manual) 0 % (0.0-1.8); Ovalocytes Few; Platelet Estimate Consistent w Auto; Poikilocytosis 1+; Total Cells Counted 100
[2018-08-21] MEDS: COLACE PO SCH ×2 (10:31→21:48)
[2018-08-21] MEDS: VITAMIN D3 PO SCH (10:31)
[2018-08-21] MEDS: BABY ASPIRIN PO SCH (10:31)
[2018-08-21] MEDS: COREG PO SCH ×2 (10:31→21:49)
[2018-08-21] MEDS: ROCEPHIN/NS 1 GM/50 ML 1 GM/50 ML BAG IV SCH (10:31)
[2018-08-21] MEDS: HumuLIN R SUB-Q SCH ×3 (10:32→18:31)
[2018-08-21] MEDS: HEPARIN SUB-Q SCH ×2 (10:32→21:47)
[2018-08-21] MEDS: HumaLOG SUB-Q SCH ×4 (10:32→21:47)
[2018-08-21] MEDS: SODIUM CHLORIDE FLUSH SYRINGE 10 ML IV SCH ×2 (10:33→21:49)
--- NOTE | 2018-08-21 10:45 | Progress Note ---
Assessment and Plan Cont present cardiac management. The patient has been seen in conjunction with Dr. Rizvi who agrees with the assessment and plan of care. - Patient Problems (1) Anasarca Current Visit: Yes Status: Acute (2) Acute heart failure with preserved ejection fraction Current Visit: Yes Status: Acute Qualifiers: Heart failure type: diastolic Heart failure chronicity: acute Qualified Code(s): I50.31 - Acute diastolic (congestive) heart failure (3) ROSEMARY on CKD Current Visit: Yes Status: Acute Qualifiers: Chronic kidney disease stage: stage 3 (moderate) Qualified Code(s): N18.3 - Chronic kidney disease, stage 3 (moderate) (4) Essential hypertension Current Visit: Yes Status: Chronic (5) Hyperlipemia, mixed Current Visit: Yes Status: Chronic (6) Morbid obesity Current Visit: Yes Status: Chronic Subjective Date of service: 08/21/18 Principal diagnosis: sob Interval history: pt resting comfortably in bed, BLE edema and scrotal edema gradually improving. Objective Last Vital Signs Temp 98.3 F 08/21/18 08:06 Pulse 71 08/21/18 08:06 Resp 20 08/21/18 08:06 BP 125/59 08/21/18 08:00 Pulse Ox 96 08/21/18 08:06 - Physical Examination General: Appears Well HEENT: Positive: PERRL, Mucus Membranes Moist Neck: Positive: neck supple, trachea midline Cardiac: Positive: Reg Rate and Rhythm, S1/S2 Lungs: Positive: Decreased Breath Sounds Neuro: Positive: Grossly Intact Abdomen: Positive: Soft, Active Bowel Sounds. Negative: Tender, Distended Skin: Positive: Clear Incision: Cardiac Cath Site Musculoskeletal: No Pain, Normal Range of Motion Extremities: Present: normal, edema, +1 Edema, Other (scrotal edema) - Labs and Meds CBC 08/21/18 Range/Units 04:28 WBC 3.8 L (4.5-11.0) K/mm3 RBC 3.42 L (3.65-5.03) M/mm3 Hgb 9.2 L (11.8-15.2) gm/dl Hct 28.4 L (35.5-45.6) % Plt Count 126 L (140-440) K/mm3 Comprehensive Metabolic Panel 08/21/18 Range/Units 04:28 Sodium 134 L (137-145) mmol/L Potassium 4.3 (3.6-5.0) mmol/L Chloride 96.5 L (98-107) mmol/L Carbon Dioxide 24 (22-30) mmol/L BUN 59 H (9-20) mg/dL Creatinine 3.4 H (0.8-1.5) mg/dL Glucose 190 H (75-100) mg/dL Calcium 8.5 (8.4-10.2) mg/dL - Imaging and Cardiology EKG: image reviewed (sinus rhythm at 76 bpm) Echo: report reviewed (2015 normal LV function.Positive bubble study PFO), other (08/17/2018 normal LV function and diastolic dysfunction mild to moderate LVH no significant regurgitations)
--- NOTE | 2018-08-21 12:27 | Progress Note ---
Assessment and Plan Assessment and plan: Anasarca and scrotal edema. Etiology likely secondary to hypoalbuminemia. Check albumin. SIRS. Blood cultures remain negative. Acute heart failure with preserved EF. Continue present management. No ACEI or ARB due to advanced renal failure Acute on Chronic kidney disease, stage 3: Creatinine has improved. Nephrology following. Patient with acute kidney injury possibly ATN from nephrotic range proteinuria. ? cardiorenal syndrome. Secondary GN workup in progress secondary to evaluation of Nephrotic Range proteinuria. HIV, RPR, Hepatitis panel results are negative, JELANI, Anti-DsDNA, SPEP, UPEP and Serum Immunofixation levels are still pending, follow-up 24-hour urine collection Renal ultrasound on 08/16/18- Chronic medical renal disease. No Hydronephrosis. No acute indication for [employer] today but will likely need hemodialysis initiation for ultrafiltration per nephrology Elevated D-Dimer. VQ scan negative Hypertensive urgency: iv antihypertensives as needed, low salt diet DM type 2; ada and ssi HLD: treat with statins Malnutrition mild to moderate: counseling done, consulted [employer] Right toe pressure ulcer, poa, at least stage 3, heel ulcers bilateral also: see admission photos, local wound care done, consult Wound care for further management Morbid obese, bmi 51.3, 342 lbs: counseled on lifestyle modification and weight reduction History Interval history: Patient is a 58-year-old male with history of hypertension, diabetes, HLD, CKD stage III who presents to [facility] ED with c/o bilateral lower extremity swelling and shortness of breath. Pt scrotum is swollen obstructing view of his penis. Currently patient is on 2L supplemental O2 with saturation of 94%. D-dimer slightly elevated at 463.24. CK-MB elevated at 5.0; troponin negative. 2D ECHO conclusions Global LV systolic function is normal, estimated estimated EF is 55- 60%; abnormal LV diastolic dysfunction, mild to moderate concentric LV hypertrophy, trace mr, tr, RVSP calculated at 57 mmHg, Hospitalist Physical - Constitutional Vitals: Temp Pulse Resp BP Pulse Ox 98.3 F 71 20 125/59 96 08/21/18 08:06 08/21/18 08:06 08/21/18 08:06 08/21/18 08:00 08/21/18 08:06 General appearance: Present: no acute distress, well-nourished - EENT Eyes: Present: PERRL, EOM intact ENT: hearing intact, clear oral mucosa, dentition normal - Neck Neck: Present: supple, normal ROM - Respiratory Respiratory effort: normal Respiratory: bilateral: CTA - Cardiovascular Rhythm: regular Heart Sounds: Present: S1 & S2. Absent: gallop, rub - Extremities Extremities: no ischemia, No edema, Full ROM - Abdominal General gastrointestinal: soft, non-tender, non-distended, normal bowel sounds - Integumentary Integumentary: Present: clear, warm, dry - Neurologic Neurologic: CNII-XII intact, moves all extremities Results - Labs CBC & Chem 7: 08/21/18 04:28 08/21/18 04:28 Labs: Laboratory Last Values WBC 3.8 K/mm3 (4.5-11.0) L 08/21/18 04:28 RBC 3.42 M/mm3 (3.65-5.03) L 08/21/18 04:28 Hgb 9.2 gm/dl (11.8-15.2) L 08/21/18 04:28 Hct 28.4 % (35.5-45.6) L 08/21/18 04:28 MCV 83 fl (84-94) L 08/21/18 04:28 MCH 27 pg (28-32) L 08/21/18 04:28 MCHC 32 % (32-34) 08/21/18 04:28 RDW 16.4 % (13.2-15.2) H 08/21/18 04:28 Plt Count 126 K/mm3 (140-440) L 08/21/18 04:28 Lymph % (Auto) 26.6 % (13.4-35.0) 08/17/18 07:30 Barry % (Auto) Ethologist 08/21/18 04:28 Eos % (Auto) 6.6 % (0.0-4.3) H 08/17/18 07:30 Baso % (Auto) 1.1 % (0.0-1.8) 08/17/18 07:30 Lymph # 1.3 K/mm3 (1.2-5.4) 08/17/18 07:30 Barry # 0.7 K/mm3 (0.0-0.8) 08/17/18 07:30 Eos # 0.3 K/mm3 (0.0-0.4) 08/17/18 07:30 Baso # 0.1 K/mm3 (0.0-0.1) 08/17/18 07:30 Add Manual Diff Complete 08/21/18 04:28 Total Counted 100 08/21/18 04:28 Seg Neutrophils % 51.7 % (40.0-70.0) 08/17/18 07:30 Seg Neuts % (Manual) 50.0 % (40.0-70.0) 08/21/18 04:28 0 % 08/21/18 04:28 32.0 % (13.4-35.0) 08/21/18 04:28 Reactive Lymphs % (Man) 0 % 08/21/18 04:28 15.0 % (0.0-7.3) H 08/21/18 04:28 3.0 % (0.0-4.3) 08/21/18 04:28 0 % (0.0-1.8) 08/21/18 04:28 0 % 08/21/18 04:28 0 % 08/21/18 04:28 0 % 08/21/18 04:28 0 % 08/21/18 04:28 Nucleated RBC % Not Reportable 08/21/18 04:28 Seg Neutrophils # 2.6 K/mm3 (1.8-7.7) 08/17/18 07:30 Seg Neutrophils # Man 1.9 K/mm3 (1.8-7.7) 08/21/18 04:28 Band Neutrophils # 0.0 K/mm3 08/21/18 04:28 1.2 K/mm3 (1.2-5.4) 08/21/18 04:28 Abs React Lymphs (Man) 0.0 K/mm3 08/21/18 04:28 0.6 K/mm3 (0.0-0.8) 08/21/18 04:28 0.1 K/mm3 (0.0-0.4) 08/21/18 04:28 0.0 K/mm3 (0.0-0.1) 08/21/18 04:28 0.0 K/mm3 08/21/18 04:28 0.0 K/mm3 08/21/18 04:28 0.0 K/mm3 08/21/18 04:28 Blast Cells # 0.0 K/mm3 08/21/18 04:28 WBC Morphology Not Reportable 08/21/18 04:28 Hypersegmented Neuts Not Reportable 08/21/18 04:28 Hyposegmented Neuts Not Reportable 08/21/18 04:28 Hypogranular Neuts Not Reportable 08/21/18 04:28 Not Reportable 08/21/18 04:28 Not Reportable 08/21/18 04:28 Not Reportable 08/21/18 04:28 Not Reportable 08/21/18 04:28 Not Reportable 08/21/18 04:28 Not Reportable 08/21/18 04:28 Consistent w auto 08/21/18 04:28 Not Reportable 08/21/18 04:28 Plt Clumps, EDTA Not Reportable 08/21/18 04:28 Not Reportable 08/21/18 04:28 Not Reportable 08/21/18 04:28 Not Reportable 08/21/18 04:28 Plt Morphology Comment Not Reportable 08/21/18 04:28 RBC Morphology Not Reportable 08/21/18 04:28 Dimorphic RBCs Not Reportable 08/21/18 04:28 Not Reportable 08/21/18 04:28 Not Reportable 08/21/18 04:28 1+ 08/21/18 04:28 1+ 08/21/18 04:28 Not Reportable 08/21/18 04:28 Not Reportable 08/21/18 04:28 Not Reportable 08/21/18 04:28 Not Reportable 08/21/18 04:28 Not Reportable 08/21/18 04:28 Not Reportable 08/21/18 04:28 Not Reportable 08/21/18 04:28 Few 08/21/18 04:28 Not Reportable 08/21/18 04:28 Not Reportable 08/21/18 04:28 Not Reportable 08/21/18 04:28 Not Reportable 08/21/18 04:28 Not Reportable 08/21/18 04:28 Not Reportable 08/21/18 04:28 Few 08/21/18 04:28 Acanthocytes (Spur) Not Reportable 08/21/18 04:28 Rouleaux Not Reportable 08/21/18 04:28 Not Reportable 08/21/18 04:28 Not Reportable 08/21/18 04:28 Not Reportable 08/21/18 04:28 Not Reportable 08/21/18 04:28 Hem Pathologist Commnt No 08/21/18 04:28 463.24 ng/mlDDU (0-234) H 08/15/18 21:24 Sodium 134 mmol/L (137-145) L 08/21/18 04:28 Potassium 4.3 mmol/L (3.6-5.0) 08/21/18 04:28 Chloride 96.5 mmol/L (98-107) L 08/21/18 04:28 Carbon Dioxide 24 mmol/L (22-30) 08/21/18 04:28 18 mmol/L 08/21/18 04:28 BUN 59 mg/dL (9-20) H 08/21/18 04:28 3.4 mg/dL (0.8-1.5) H 08/21/18 04:28 Estimated GFR 19 ml/min 08/21/18 04:28 17 % 08/21/18 04:28 Glucose 190 mg/dL (75-100) H 08/21/18 04:28 POC Glucose 222 (70-105) H 08/21/18 12:25 7.4 % (4-6) H 08/16/18 03:37 Lactic Acid 0.70 mmol/L (0.7-2.0) 08/20/18 04:53 Calcium 8.5 mg/dL (8.4-10.2) 08/21/18 04:28 Phosphorus 5.10 mg/dL (2.5-4.5) H 08/21/18 04:28 Iron 30 ug/dL (49-181) L 08/16/18 13:52 TIBC 352 mcg/dL (250-450) 08/16/18 13:52 78.2 ng/mL (13.0-400.0) 08/18/18 08:34 0.40 mg/dL (0.1-1.2) 08/15/18 18:54 AST 25 units/L (5-40) 08/15/18 18:54 ALT 15 units/L (7-56) 08/15/18 18:54 74 units/L (35-129) 08/15/18 18:54 340 units/L (55-170) H 08/15/18 21:24 CK-MB (CK-2) 5.0 ng/mL (0.0-4.0) H 08/15/18 21:24 CK-MB (CK-2) Rel Index 1.4 (0-4) 08/15/18 21:24 0.026 ng/mL (0.00-0.029) 08/15/18 21:24 NT-Pro-B Natriuret Pep 877.6 pg/mL (0-900) 08/17/18 11:13 6.7 g/dL (6.3-8.2) 08/15/18 18:54 3.2 g/dL (3.9-5) L 08/15/18 18:54 0.9 % 08/15/18 18:54 Triglycerides 140 mg/dL (2-149) 08/16/18 03:37 Cholesterol 147 mg/dL (50-199) 08/16/18 03:37 88 mg/dL (50-130) 08/16/18 03:37 37 mg/dL (40-59) L 08/16/18 03:37 3.97 % 08/16/18 03:37 Straw (Yellow) 08/17/18 04:00 Clear (Clear) 08/17/18 04:00 7.0 (5.0-7.0) 08/17/18 04:00 Ur Specific Guy 1.006 (1.003-1.030) 08/17/18 04:00 100 mg/dl mg/dL (Negative) 08/17/18 04:00 Neg mg/dL (Negative) 08/17/18 04:00 Neg mg/dL (Negative) 08/17/18 04:00 Neg (Negative) 08/17/18 04:00 Neg (Negative) 08/17/18 04:00 Neg (Negative) 08/17/18 04:00 < 2.0 mg/dL (<2.0) 08/17/18 04:00 Ur Leukocyte Esterase Neg (Negative) 08/17/18 04:00 < 1.0 /HPF (0.0-6.0) 08/17/18 04:00 2.0 /HPF (0.0-6.0) 08/17/18 04:00 U Epithel Cells (Auto) 1.0 /HPF (0-13.0) 08/15/18 18:47 1+ /HPF (Negative) 08/17/18 04:00 Few /HPF 08/15/18 18:47 None seen (None Seen) 08/17/18 04:00 22.4 mg/dL (0.1-20.0) H 08/17/18 04:00 Protein/Creatinin Ratio 3.53 08/17/18 04:00 132 mmol/L 08/17/18 04:00 106 08/17/18 04:00 79 mg/dL (5-11.8) H 08/17/18 04:00 Double Strand DNA Ab <1 IU/mL (<=4) 08/17/18 11:13 144 mg/dL (82-185) 08/17/18 11:13 23 mg/dL (15-53) 08/17/18 11:13 RPR Nonreactive (Nonreactive) 08/17/18 11:13 Hepatitis A IgM Ab Non-reactive (NonReactive) 08/17/18 11:13 Hep Bs Antigen Non-reactive (Negative) 08/17/18 11:13 Hep B Core IgM Ab Non-reactive (NonReactive) 08/17/18 11:13 Non-reactive (NonReactive) 08/17/18 11:13 HIV 1&2 Antibody Rapid Non react (Non React) 08/17/18 11:13 Non react (Non React) 08/17/18 11:13 Active Medications - Current Medications Current Medications: Generic Name Dose Route Start Last Admin Trade Name Anuragq PRN Reason Stop Dose Admin Acetaminophen 650 mg 08/16/18 03:07 08/19/18 09:15 Tylenol PO 650 mg Q4H PRN Administration Pain MILD(1-3)/Fever >100.5/FRAIRE Albuterol 2.5 mg 08/16/18 03:07 Proventil IH Q4HRT PRN Shortness Of Breath Aspirin 81 mg 08/16/18 10:00 08/21/18 10:31 Baby Aspirin PO 81 mg QDAY ARLENE Administration Atorvastatin Calcium 40 mg 08/16/18 22:00 08/20/18 22:32 Lipitor PO 40 mg QHS ARLENE Administration Carvedilol 6.25 mg 08/17/18 12:00 08/21/18 10:31 Coreg PO 6.25 mg BID ARLENE Administration Cholecalciferol 5,000 unit 08/16/18 10:00 08/21/18 10:31 Vitamin D3 PO 5,000 unit DAILY ARLENE Administration Dextrose 50 ml 08/16/18 03:13 D50w (25gm) Syringe IV PRN PRN Hypoglycemia Docusate Sodium 100 mg 08/16/18 10:00 08/21/18 10:31 Colace PO 100 mg BID ARLENE Administration Epoetin Keon 10,000 unit 08/18/18 13:00 08/20/18 15:06 Procrit SUB-Q 10,000 unit MOWEFR ARLENE Administration Gabapentin 300 mg 08/16/18 22:00 08/20/18 22:33 Neurontin PO 300 mg QHS ARLENE Administration Heparin Sodium (Porcine) 5,000 unit 08/16/18 10:00 08/21/18 10:32 Heparin SUB-Q 5,000 unit Q12HR ARLENE Administration Hydralazine HCl 50 mg 08/16/18 14:00 08/21/18 06:22 Apresoline PO 50 mg Q8HR ARLENE Administration Ceftriaxone Sodium 1 gm in 50 mls @ 100 mls/hr 08/18/18 15:00 08/21/18 10:31 Rocephin/Ns 1 Gm/50 Ml IV 100 mls/hr Q24HR ARLENE Administration Protocol Insulin Human Lispro 0 unit 08/16/18 07:30 08/21/18 10:32 Humalog SUB-Q 2 unit ACHS ARLENE Administration Protocol Insulin Human Regular 5 units 08/16/18 07:30 08/21/18 10:32 Humulin R SUB-Q 5 units AC ARLENE Administration Nitroglycerin 0.4 mg 08/16/18 03:07 Nitrostat SL .Q5MIN PRN Chest Pain Ondansetron HCl 4 mg 08/16/18 03:07 08/16/18 16:39 Zofran IV 4 mg Q8H PRN Administration Nausea And Vomiting Oxycodone/Acetaminophen 1 tab 08/16/18 03:07 08/19/18 05:57 Percocet 5/325 PO 1 tab Q6H PRN Administration Pain, Moderate (4-6) Sodium Chloride 10 ml 08/16/18 10:00 08/21/18 10:33 Sodium Chloride Flush Syringe 10 Ml IV 10 ml BID ARLENE Administration Sodium Chloride 10 ml 08/16/18 03:07 08/16/18 06:17 Sodium Chloride Flush Syringe 10 Ml IV 10 ml PRN PRN Administration LINE FLUSH Nutrition/Malnutrition Assess - Dietary Evaluation Nutrition/Malnutrition Findings: Nutrition Notes Start: 08/16/18 09:25 Freq: Status: Active Protocol: Document 08/19/18 14:48 GHASSAN (Rec: 08/19/18 14:54 GHASSAN [email or web address]) Nutrition Notes Initial or Follow up Brief Note Current Diagnosis CKD(stage I-IV),Diabetes Other Pertinent Diagnosis Fluid retention in scrotum and BLE edema, wounds on toe, heel and leg Current Diet Cardiac/consistent CHO Labs/Tests Na 134 BUN 55 Cr 4.4 Pertinent Medications Reviewed [place] Body Weight (kg) 0 Subjective/Other Information Pt reports good appetite; has been consuming 75-100% of meals. Nutrition Intervention Revisit per MD consult or patient Sign Off request:
--- NOTE | 2018-08-21 13:34 | Progress Note ---
Assessment and Plan CHF (congestive heart failure) CKD (chronic kidney disease) HANSEN (dyspnea on exertion) Elevated d-dimer Essential hypertension Morbid obesity Sleep apnea with use of continuous positive airway pressure (CPAP) - continue supplemental oxygen as needed to keep O2 sats > 90% - continue bronchodilators with pulmonary hygiene per RT - gentle diuresis to control pulmonary edema element on CXR prn *(watching for renal indices also) - suspect deconditioning playing a major role in HANSEN; continue PT/OT as tolerated - continuye BIPAP therapy qhs re: MARBELLA/OHS - weight loss counseled - VQ scan and lower extremity dopplers normal; no further VTE w/up - continue chronic disease meds per attending - neurology evaluation ongoing - GI & VTE prophylaxis - Flu & pneumovax per protocol .. re-evaluate in am & prn Subjective Date of service: 08/21/18 Principal diagnosis: CHF; CKD;; HANSEN; Elevated d-dimer; Essential HTN; Morbid obesity; MARBELLA Interval history: Patient is seen today for: CHF (congestive heart failure); CKD (chronic kidney disease); HANSEN (dyspnea on exertion); Elevated d-dimer; Essential hypertension; Morbid obesity; Sleep apnea with use of continuous positive airway pressure (CPAP) Seen and examined at bedside; 24hour events reviewed; nursing and respiratory care staff consulted; no adverse overnight events reported to me; standing up beside bed; states that scrotal edema is making it hard to sit down; denies acute chest pains or palpitations; still SOB; No N/V/F/C; tolerating BIPAP therapy well so far Objective Vital Signs - 12hr 08/21/18 08/21/18 08/21/18 03:42 05:00 06:22 Temperature 97.7 F Pulse Rate 72 70 72 Respiratory 18 Rate Blood Pressure 119/56 119/56 Blood Pressure [Left] O2 Sat by Pulse 97 Oximetry 08/21/18 08/21/18 08:00 08:06 Temperature 98.3 F Pulse Rate 71 Respiratory 20 Rate Blood Pressure Blood Pressure 125/59 [Left] O2 Sat by Pulse 96 Oximetry Constitutional: no acute distress, alert, other (Morbidly Obese middle aged CM) Eyes: non-icteric ENT: oropharynx moist, other (mallampati 4) Neck: supple, no JVD Effort: mildly labored Ascultation: Bilateral: diminished breath sounds, rhonchi (scant in bases) Percussion: Bilateral: not dull Cardiovascular: regular rate and rhythm Gastrointestinal: normoactive bowel sounds, soft, non-tender, other (protuberant) Integumentary: cellulitis, other (Cellulitis and wounds in both lower legs.) Extremities: no cyanosis, pink and warm, pulses normal, edema (trace to 1+) Neurologic: normal mental status, non-focal exam, pupils equal and round, CN II-XII normal Psychiatric: mood appropriate, affect normal CBC and BMP: 08/22/18 04:50 08/22/18 04:51 ABG, PT/INR, D-dimer: PT/INR, D-dimer 463.24 ng/mlDDU (0-234) H 08/15/18 21:24 Abnormal lab findings: Abnormal Labs 08/15/18 08/15/18 08/15/18 18:02 18:54 18:54 WBC RBC 3.61 L Hgb 9.8 L Hct 30.1 L MCV MCH 27 L RDW 16.8 H Plt Count [place] % (Auto) 10.7 H Eos % (Auto) 5.9 H Monocytes % (Manual) Basophils % (Manual) Seg Neutrophils # Man D-Dimer Sodium Chloride 107.7 H BUN 25 H Creatinine 2.5 H Glucose 159 H POC Glucose 124 H Hemoglobin A1c Phosphorus Iron Total Creatine Kinase CK-MB (CK-2) Albumin 3.2 L HDL Cholesterol Urine Creatinine Urine Total Protein 08/15/18 08/15/18 08/16/18 21:24 21:24 03:37 WBC RBC Hgb Hct MCV MCH RDW Plt Count [place] % (Auto) Eos % (Auto) Monocytes % (Manual) Basophils % (Manual) Seg Neutrophils # Man D-Dimer 463.24 H Sodium Chloride BUN Creatinine Glucose POC Glucose Hemoglobin A1c 7.4 H Phosphorus Iron Total Creatine Kinase 340 H CK-MB (CK-2) 5.0 H Albumin HDL Cholesterol Urine Creatinine Urine Total Protein 08/16/18 08/16/18 08/16/18 03:37 07:54 12:01 WBC RBC Hgb Hct MCV MCH RDW Plt Count [place] % (Auto) Eos % (Auto) Monocytes % (Manual) Basophils % (Manual) Seg Neutrophils # Man D-Dimer Sodium Chloride BUN Creatinine Glucose POC Glucose 113 H 179 H Hemoglobin A1c Phosphorus Iron Total Creatine Kinase CK-MB (CK-2) Albumin HDL Cholesterol 37 L Urine Creatinine Urine Total Protein 08/16/18 08/16/18 08/16/18 13:52 17:44 21:21 WBC RBC Hgb Hct MCV MCH RDW Plt Count [place] % (Auto) Eos % (Auto) Monocytes % (Manual) Basophils % (Manual) Seg Neutrophils # Sadi D-Dimer Sodium Chloride BUN Creatinine Glucose POC Glucose 221 H 165 H Hemoglobin A1c Phosphorus Iron 30 L Total Creatine Kinase CK-MB (CK-2) Albumin HDL Cholesterol Urine Creatinine Urine Total Protein 08/17/18 08/17/18 08/17/18 04:00 07:30 07:30 WBC RBC Hgb 10.3 L Hct 31.5 L MCV 82 L MCH 27 L RDW 16.8 H Plt Count [place] % (Auto) 14.0 H Eos % (Auto) 6.6 H Monocytes % (Manual) Basophils % (Manual) Seg Neutrophils # Sadi D-Dimer Sodium Chloride BUN 32 H Creatinine 2.9 H Glucose 180 H POC Glucose Hemoglobin A1c Phosphorus Iron Total Creatine Kinase CK-MB (CK-2) Albumin HDL Cholesterol Urine Creatinine 22.4 H Urine Total Protein 79 H 08/17/18 08/17/18 08/17/18 07:34 12:17 16:36 WBC RBC Hgb Hct MCV MCH RDW Plt Count [place] % (Auto) Eos % (Auto) Monocytes % (Manual) Basophils % (Manual) Seg Neutrophils # Sadi D-Dimer Sodium Chloride BUN Creatinine Glucose POC Glucose 169 H 207 H 184 H Hemoglobin A1c Phosphorus Iron Total Creatine Kinase CK-MB (CK-2) Albumin HDL Cholesterol Urine Creatinine Urine Total Protein 08/17/18 08/18/18 08/18/18 21:17 07:05 07:53 WBC RBC Hgb Hct MCV MCH RDW Plt Count [place] % (Auto) Eos % (Auto) Monocytes % (Manual) Basophils % (Manual) Seg Neutrophils # Sadi D-Dimer Sodium 134 L Chloride 95.9 L BUN 43 H Creatinine 3.8 H Glucose 150 H POC Glucose 209 H 139 H Hemoglobin A1c Phosphorus Iron Total Creatine Kinase CK-MB (CK-2) Albumin HDL Cholesterol Urine Creatinine Urine Total Protein 08/18/18 08/18/18 08/18/18 08:34 11:53 15:54 WBC RBC Hgb 10.8 L Hct 33.8 L MCV MCH 27 L RDW 16.3 H Plt Count [place] % (Auto) Eos % (Auto) Monocytes % (Manual) Basophils % (Manual) Seg Neutrophils # Sadi D-Dimer Sodium Chloride BUN Creatinine Glucose POC Glucose 191 H 150 H Hemoglobin A1c Phosphorus Iron Total Creatine Kinase CK-MB (CK-2) Albumin HDL Cholesterol Urine Creatinine Urine Total Protein 08/18/18 08/19/18 08/19/18 20:49 05:28 05:28 WBC RBC Hgb 9.7 L Hct 30.1 L MCV 82 L MCH 26 L RDW 16.6 H Plt Count 136 L [place] % (Auto) Eos % (Auto) Monocytes % (Manual) Basophils % (Manual) Seg Neutrophils # Sadi D-Dimer Sodium 134 L Chloride 96.2 L BUN 55 H Creatinine 4.4 H Glucose 118 H POC Glucose 138 H Hemoglobin A1c Phosphorus Iron Total Creatine Kinase CK-MB (CK-2) Albumin HDL Cholesterol Urine Creatinine Urine Total Protein 08/19/18 08/19/18 08/19/18 07:43 11:57 15:41 WBC RBC Hgb Hct MCV MCH RDW Plt Count [place] % (Auto) Eos % (Auto) Monocytes % (Manual) Basophils % (Manual) Seg Neutrophils Rosette Avitia D-Dimer Sodium Chloride BUN Creatinine Glucose POC Glucose 162 H 280 H 167 H Hemoglobin A1c Phosphorus Iron Total Creatine Kinase CK-MB (CK-2) Albumin HDL Cholesterol Urine Creatinine Urine Total Protein 08/19/18 08/20/18 08/20/18 21:44 04:53 04:53 WBC 3.5 L RBC 3.58 L Hgb 9.4 L Hct 29.5 L MCV 83 L MCH 26 L RDW 16.4 H Plt Count 121 L [place] % (Auto) Eos % (Auto) Monocytes % (Manual) 16.0 H Basophils % (Manual) 3.0 H Seg Neutrophils # Sadi 1.6 L D-Dimer Sodium 136 L Chloride BUN 57 H Creatinine 3.3 H Glucose 136 H POC Glucose 234 H Hemoglobin A1c Phosphorus 5.50 H Iron Total Creatine Kinase CK-MB (CK-2) Albumin HDL Cholesterol Urine Creatinine Urine Total Protein 08/20/18 08/20/18 08/20/18 08:13 12:49 18:26 WBC RBC Hgb Hct MCV MCH RDW Plt Count [place] % (Auto) Eos % (Auto) Monocytes % (Manual) Basophils % (Manual) Seg Neutrophils # Sadi D-Dimer Sodium Chloride BUN Creatinine Glucose POC Glucose 124 H 145 H 175 H Hemoglobin A1c Phosphorus Iron Total Creatine Kinase CK-MB (CK-2) Albumin HDL Cholesterol Urine Creatinine Urine Total Protein 08/20/18 08/21/18 08/21/18 20:53 04:28 04:28 WBC 3.8 L RBC 3.42 L Hgb 9.2 L Hct 28.4 L MCV 83 L MCH 27 L RDW 16.4 H Plt Count 126 L [place] % (Auto) Eos % (Auto) Monocytes % (Manual) 15.0 H Basophils % (Manual) Seg Neutrophils # Man D-Dimer Sodium 134 L Chloride 96.5 L BUN 59 H Creatinine 3.4 H Glucose 190 H POC Glucose 184 H Hemoglobin A1c Phosphorus 5.10 H Iron Total Creatine Kinase CK-MB (CK-2) Albumin HDL Cholesterol Urine Creatinine Urine Total Protein 08/21/18 08/21/18 08:58 12:25 WBC RBC Hgb Hct MCV MCH RDW Plt Count [place] % (Auto) Eos % (Auto) Monocytes % (Manual) Basophils % (Manual) Seg Neutrophils # Man D-Dimer Sodium Chloride BUN Creatinine Glucose POC Glucose 159 H 222 H Hemoglobin A1c Phosphorus Iron Total Creatine Kinase CK-MB (CK-2) Albumin HDL Cholesterol Urine Creatinine Urine Total Protein Chest x-ray: report reviewed
--- NOTE | 2018-08-21 13:39 | Progress Note ---
Assessment and Plan Assessment: Acute kidney injury possibly ATN from Nephrotic range protienuria, Cardiorenal syndrome on CKD: -Renal function reviewed, SCr level was 3.4 today, yesterday's SCr level was 3.3 -Urine protein to cr ratio shows Nephrotic range proteinuria, obtain secondary GN workup with JELANI, Anti-DsDNA, C3/C4, RPR, Hep Panel, HIV, SPEP/UPEP, Serum IFX, could be due to DM Type 2 as well. 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 BNP was 850 on 08/15/09, BNP can be falsely low in obese patients so likely underestimated in this patient. -Scheduled lasix on hold for now Anemia of chronic disease due to CKD: - On Epogen Essential Hypertension: - Continue on current regimen - Adjust medications as needed Diabetes Mellitus type 2 on insulin: - As per primary team Subjective Date of service: 08/21/18 Principal diagnosis: CHF; CKD;; HANSEN; Elevated d-dimer; Essential HTN; Morbid obesity; MARBELLA Interval history: Pt seen in the chair, states worsening shortness of breath today, no acute distress. No family at bedside Objective - Vital Signs Vital signs: Vital Signs - 12hr 08/21/18 08/21/18 08/21/18 03:42 05:00 06:22 Temperature 97.7 F Pulse Rate 72 70 72 Respiratory 18 Rate Blood Pressure 119/56 119/56 Blood Pressure [Left] O2 Sat by Pulse 97 Oximetry 08/21/18 08/21/18 08:00 08:06 Temperature 98.3 F Pulse Rate 71 Respiratory 20 Rate Blood Pressure Blood Pressure 125/59 [Left] O2 Sat by Pulse 96 Oximetry - General Appearance General appearance: well-developed EENT: ATNC Neck: no JVD Respiratory: Present: Decreased Breath Sounds Cardiology: regular, S1S2 Gastrointestinal: normoactive bowel sounds Integumentary: chronic venous stasis Neurologic: alert and oriented x3 Musculoskeletal: other (2-3+ edema to BLE) Psychiatric: cooperative - Lab 08/21/18 04:28 08/21/18 04:28 Most recent lab results Calcium 8.5 mg/dL (8.4-10.2) 08/21/18 04:28 Phosphorus 5.10 mg/dL (2.5-4.5) H 08/21/18 04:28 22.4 mg/dL (0.1-20.0) H 08/17/18 04:00 132 mmol/L 08/17/18 04:00 79 mg/dL (5-11.8) H 08/17/18 04:00 Medications & Allergies - Medications Allergies/Adverse Reactions: Allergies canagliflozin [From Invokana] Allergy (Verified 08/15/18 17:49) Unknown IV CONTRAST DYE Allergy (Uncoded 08/15/18 17:49) Unknown Home Medications: Home Medications Medication Instructions Recorded Confirmed Last Taken Type Acetaminophen [Acetaminophen ER] 650 mg PO Q8HR PRN 08/16/18 08/16/18 Unknown History Amlodipine Besylate/Benazepril 1 each PO QDAY 08/16/18 08/16/18 Unknown History [Lotrel 10-40 mg] AtorvaSTATin [Lipitor] 40 mg PO QHS 08/16/18 08/16/18 Unknown History Cholecalciferol (Vitamin D3) 5,000 unit PO DAILY 08/16/18 08/16/18 Unknown History [Vitamin D3 5,000 UNIT] Doxylamine Succinate [Unisom] 25 mg PO QHS 08/16/18 08/16/18 Unknown History Gabapentin [Neurontin] 300 mg PO QHS 08/16/18 08/16/18 Unknown History Insulin Regular, Human [Humulin R 90 unit SQ BID 08/16/18 08/16/18 Unknown History U-500 Kwikpen] Loratadine [Claritin] 10 mg PO DAILY PRN 08/16/18 08/16/18 Unknown History Melatonin [Melatonin 3MG TAB] 3 mg PO QHS 08/16/18 08/16/18 Unknown History Niacin [Niacor] 500 mg PO DAILY 08/16/18 08/16/18 Unknown History Omeprazole 20 mg PO DAILY PRN 08/16/18 08/16/18 Unknown History Triamcinolone Acetonide [Nasacort 10.8 ml NS DAILY 08/16/18 08/16/18 Unknown History SPRAY] Active Medications: Generic Name Dose Route Start Last Admin Trade Name Freq PRN Reason Stop Dose Admin Acetaminophen 650 mg 08/16/18 03:07 08/19/18 09:15 Tylenol PO 650 mg Q4H PRN Administration Pain MILD(1-3)/Fever >100.5/FRAIRE Albuterol 2.5 mg 08/16/18 03:07 Proventil IH Q4HRT PRN Shortness Of Breath Aspirin 81 mg 08/16/18 10:00 08/21/18 10:31 Baby Aspirin PO 81 mg QDAY ARLENE Administration Atorvastatin Calcium 40 mg 08/16/18 22:00 08/20/18 22:32 Lipitor PO 40 mg QHS ARLENE Administration Carvedilol 6.25 mg 08/17/18 12:00 08/21/18 10:31 Coreg PO 6.25 mg BID ARLENE Administration Cholecalciferol 5,000 unit 08/16/18 10:00 08/21/18 10:31 Vitamin D3 PO 5,000 unit DAILY ARLENE Administration Dextrose 50 ml 08/16/18 03:13 D50w (25gm) Syringe IV PRN PRN Hypoglycemia Docusate Sodium 100 mg 08/16/18 10:00 08/21/18 10:31 Colace PO 100 mg BID ARLENE Administration Epoetin Keon 10,000 unit 08/18/18 13:00 08/20/18 15:06 Procrit SUB-Q 10,000 unit MOWEFR ARLENE Administration Gabapentin 300 mg 08/16/18 22:00 08/20/18 22:33 Neurontin PO 300 mg QHS ARLENE Administration Heparin Sodium (Porcine) 5,000 unit 08/16/18 10:00 08/21/18 10:32 Heparin SUB-Q 5,000 unit Q12HR ARLENE Administration Hydralazine HCl 50 mg 08/16/18 14:00 08/21/18 06:22 Apresoline PO 50 mg Q8HR ARLENE Administration Ceftriaxone Sodium 1 gm in 50 mls @ 100 mls/hr 08/18/18 15:00 08/21/18 10:31 Rocephin/Ns 1 Gm/50 Ml IV 100 mls/hr Q24HR ARLENE Administration Protocol Insulin Human Lispro 0 unit 08/16/18 07:30 08/21/18 10:32 Humalog SUB-Q 2 unit ACHS ARLENE Administration Protocol Insulin Human Regular 5 units 08/16/18 07:30 08/21/18 10:32 Humulin R SUB-Q 5 units AC ARLENE Administration Nitroglycerin 0.4 mg 08/16/18 03:07 Nitrostat SL .Q5MIN PRN Chest Pain Ondansetron HCl 4 mg 08/16/18 03:07 08/16/18 16:39 Zofran IV 4 mg Q8H PRN Administration Nausea And Vomiting Oxycodone/Acetaminophen 1 tab 08/16/18 03:07 08/19/18 05:57 Percocet 5/325 PO 1 tab Q6H PRN Administration Pain, Moderate (4-6) Sodium Chloride 10 ml 08/16/18 10:00 08/21/18 10:33 Sodium Chloride Flush Syringe 10 Ml IV 10 ml BID ARLENE Administration Sodium Chloride 10 ml 08/16/18 03:07 08/16/18 06:17 Sodium Chloride Flush Syringe 10 Ml IV 10 ml PRN PRN Administration LINE FLUSH
[2018-08-21 14:58] LABS: Creatinine,Urine 56.1 mg/dL (0.1-20.0)
[2018-08-21 15:20] LABS: Patient Weight,Urine 348.8 lbs
[2018-08-21] MEDS ORDERED: LASIX IV ONE (16:00)
[2018-08-21] MEDS: NEURONTIN PO SCH (21:49)
[2018-08-21] MEDS: TYLENOL PO PRN (21:55)
[2018-08-22 01:11] LABS: Albumin 2.9 g/dL (3.8-4.8); Gamma Globulin 1.1 g/dL (0.8-1.7)
[2018-08-22 05:28] LABS: Hematocrit 27.8 % (35.5-45.6); Mean Corpuscular HGB Conc 32 % (32-34); Mean Corpuscular Volume 83 fl (84-94); Platelet Count 124 K/mm3 (140-440); Red Blood Count 3.37 M/mm3 (3.65-5.03); Red Cell Distribution Width 16.9 % (13.2-15.2)
[2018-08-22] MEDS: APRESOLINE PO SCH ×3 (05:35→21:57)
[2018-08-22 05:47] LABS: Calcium 8.5 mg/dL (8.4-10.2)
[2018-08-22 07:59] LABS: Anisocytosis 1+; Basophils % (Manual) 0 % (0.0-1.8); Poikilocytosis Few; Total Cells Counted 100
[2018-08-22 08:00] LABS: Ovalocytes Few; Platelet Estimate Consistent w Auto; Tear Drop Cells Few
[2018-08-22] MEDS: HumaLOG SUB-Q SCH ×4 (09:01→21:59)
[2018-08-22] MEDS: VITAMIN D3 PO SCH (09:09)
[2018-08-22] MEDS: COREG PO SCH ×2 (09:10→21:57)
[2018-08-22] MEDS: COLACE PO SCH ×2 (09:10→21:57)
[2018-08-22] MEDS: ROCEPHIN/NS 1 GM/50 ML 1 GM/50 ML BAG IV SCH (09:10)
[2018-08-22] MEDS: BABY ASPIRIN PO SCH (09:10)
[2018-08-22] MEDS: HEPARIN SUB-Q SCH ×2 (09:10→21:58)
[2018-08-22] MEDS: HumuLIN R SUB-Q SCH ×3 (09:10→20:10)
[2018-08-22] MEDS: SODIUM CHLORIDE FLUSH SYRINGE 10 ML IV SCH ×2 (09:11→21:58)
--- NOTE | 2018-08-22 10:11 | Progress Note ---
Assessment and Plan Assessment and plan: Anasarca and scrotal edema. Etiology likely secondary to hypoalbuminemia. SIRS. Blood cultures remain negative. Acute heart failure with preserved EF. Continue present management. No ACEI or ARB due to advanced renal failure. CXR on 08/19/18 showed no pulmonary edema or pneumonia Acute on Chronic kidney disease, stage 3: Creatinine has improved. Nephrology following. Patient with acute kidney injury possibly ATN from nephrotic range proteinuria. ? cardiorenal syndrome. Secondary GN workup in progress secondary to evaluation of Nephrotic Range proteinuria. HIV, RPR, Hepatitis panel results are negative, JELANI, Anti-DsDNA, SPEP, UPEP and Serum Immunofixation levels are still pending, follow-up 24-hour urine collection Renal ultrasound on 08/16/18- Chronic medical renal disease. No Hydronephrosis. 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 VQ scan negative Hypertensive urgency: iv antihypertensives as needed, low salt diet DM type 2; ada and ssi HLD: treat with statins Malnutrition mild to moderate: counseling done, consulted Infectious Diseases Physician Right toe pressure ulcer, poa, at least stage 3, heel ulcers bilateral also: see admission photos, local wound care done, continue Wound care Morbid obese, bmi 51.3, 342 lbs: counseled on lifestyle modification and weight reduction History Interval history: Patient is a 58-year-old male with history of hypertension, diabetes, HLD, CKD stage III who presents to [facility] ED with c/o bilateral lower extremity swelling and shortness of breath. Pt scrotum is swollen obstructing view of his penis. Currently patient is on 2L supplemental O2 with saturation of 94%. D-dimer slightly elevated at 463.24. CK-MB elevated at 5.0; troponin negative. 2D ECHO conclusions Global LV systolic function is normal, estimated estimated EF is 55- 60%; abnormal LV diastolic dysfunction, mild to moderate concentric LV hypertrophy, trace mr, tr, RVSP calculated at 57 mmHg, No new issues overnight. Hospitalist Physical - Constitutional Vitals: Temp Pulse Resp BP Pulse Ox 97.8 F 69 18 133/53 94 08/22/18 08:00 08/22/18 08:00 08/22/18 08:00 08/22/18 08:00 08/22/18 08:00 General appearance: Present: no acute distress, well-nourished - EENT Eyes: Present: PERRL, EOM intact ENT: hearing intact, clear oral mucosa, dentition normal - Neck Neck: Present: supple, normal ROM - Respiratory Respiratory effort: normal Respiratory: bilateral: CTA - Cardiovascular Rhythm: regular Heart Sounds: Present: S1 & S2. Absent: gallop, rub - Extremities Extremities: no ischemia, No edema, Full ROM - Abdominal General gastrointestinal: soft, non-tender, non-distended, normal bowel sounds - Integumentary Integumentary: Present: clear, warm, dry - Neurologic Neurologic: CNII-XII intact, moves all extremities Results - Labs CBC & Chem 7: 08/22/18 04:50 08/22/18 04:51 Labs: Laboratory Last Values WBC 3.7 K/mm3 (4.5-11.0) L 08/22/18 04:50 RBC 3.37 M/mm3 (3.65-5.03) L 08/22/18 04:50 Hgb 9.0 gm/dl (11.8-15.2) L 08/22/18 04:50 Hct 27.8 % (35.5-45.6) L 08/22/18 04:50 MCV 83 fl (84-94) L 08/22/18 04:50 MCH 27 pg (28-32) L 08/22/18 04:50 MCHC 32 % (32-34) 08/22/18 04:50 RDW 16.9 % (13.2-15.2) H 08/22/18 04:50 Plt Count 124 K/mm3 (140-440) L 08/22/18 04:50 Lymph % (Auto) 26.6 % (13.4-35.0) 08/17/18 07:30 [place] % (Auto) [employer] 08/22/18 04:50 Eos % (Auto) 6.6 % (0.0-4.3) H 08/17/18 07:30 Baso % (Auto) 1.1 % (0.0-1.8) 08/17/18 07:30 Lymph # 1.3 K/mm3 (1.2-5.4) 08/17/18 07:30 [place] # 0.7 K/mm3 (0.0-0.8) 08/17/18 07:30 Eos # 0.3 K/mm3 (0.0-0.4) 08/17/18 07:30 Baso # 0.1 K/mm3 (0.0-0.1) 08/17/18 07:30 Add Manual Diff Complete 08/22/18 04:50 Total Counted 100 08/22/18 04:50 Seg Neutrophils % 51.7 % (40.0-70.0) 08/17/18 07:30 Seg Neuts % (Manual) 42.0 % (40.0-70.0) 08/22/18 04:50 0 % 08/22/18 04:50 34.0 % (13.4-35.0) 08/22/18 04:50 Reactive Lymphs % (Man) 0 % 08/22/18 04:50 13.0 % (0.0-7.3) H 08/22/18 04:50 11.0 % (0.0-4.3) H 08/22/18 04:50 0 % (0.0-1.8) 08/22/18 04:50 0 % 08/22/18 04:50 0 % 08/22/18 04:50 0 % 08/22/18 04:50 0 % 08/22/18 04:50 Nucleated RBC % Not Reportable 08/22/18 04:50 Seg Neutrophils # 2.6 K/mm3 (1.8-7.7) 08/17/18 07:30 Seg Neutrophils # Man 1.6 K/mm3 (1.8-7.7) L 08/22/18 04:50 Band Neutrophils # 0.0 K/mm3 08/22/18 04:50 1.3 K/mm3 (1.2-5.4) 08/22/18 04:50 Abs React Lymphs (Man) 0.0 K/mm3 08/22/18 04:50 0.5 K/mm3 (0.0-0.8) 08/22/18 04:50 0.4 K/mm3 (0.0-0.4) 08/22/18 04:50 0.0 K/mm3 (0.0-0.1) 08/22/18 04:50 0.0 K/mm3 08/22/18 04:50 0.0 K/mm3 08/22/18 04:50 0.0 K/mm3 08/22/18 04:50 Blast Cells # 0.0 K/mm3 08/22/18 04:50 WBC Morphology Not Reportable 08/22/18 04:50 Hypersegmented Neuts Not Reportable 08/22/18 04:50 Hyposegmented Neuts Not Reportable 08/22/18 04:50 Hypogranular Neuts Not Reportable 08/22/18 04:50 Not Reportable 08/22/18 04:50 Not Reportable 08/22/18 04:50 Not Reportable 08/22/18 04:50 Not Reportable 08/22/18 04:50 Not Reportable 08/22/18 04:50 Not Reportable 08/22/18 04:50 Consistent w auto 08/22/18 04:50 Not Reportable 08/22/18 04:50 Plt Clumps, EDTA Not Reportable 08/22/18 04:50 Not Reportable 08/22/18 04:50 Not Reportable 08/22/18 04:50 Not Reportable 08/22/18 04:50 Plt Morphology Comment Not Reportable 08/22/18 04:50 RBC Morphology Not Reportable 08/22/18 04:50 Dimorphic RBCs Not Reportable 08/22/18 04:50 Not Reportable 08/22/18 04:50 Not Reportable 08/22/18 04:50 Few 08/22/18 04:50 1+ 08/22/18 04:50 Not Reportable 08/22/18 04:50 Not Reportable 08/22/18 04:50 Not Reportable 08/22/18 04:50 Not Reportable 08/22/18 04:50 Not Reportable 08/22/18 04:50 Not Reportable 08/22/18 04:50 Few 08/22/18 04:50 Few 08/22/18 04:50 Not Reportable 08/22/18 04:50 Not Reportable 08/22/18 04:50 Not Reportable 08/22/18 04:50 Not Reportable 08/22/18 04:50 Not Reportable 08/22/18 04:50 Not Reportable 08/22/18 04:50 Few 08/22/18 04:50 Acanthocytes (Spur) Not Reportable 08/22/18 04:50 Rouleaux Not Reportable 08/22/18 04:50 Not Reportable 08/22/18 04:50 Not Reportable 08/22/18 04:50 Not Reportable 08/22/18 04:50 Not Reportable 08/22/18 04:50 Hem Pathologist Commnt No 08/22/18 04:50 463.24 ng/mlDDU (0-234) H 08/15/18 21:24 Sodium 135 mmol/L (137-145) L 08/22/18 04:51 Potassium 4.4 mmol/L (3.6-5.0) 08/22/18 04:51 Chloride 97.4 mmol/L (98-107) L 08/22/18 04:51 Carbon Dioxide 23 mmol/L (22-30) 08/22/18 04:51 19 mmol/L 08/22/18 04:51 BUN 64 mg/dL (9-20) H 08/22/18 04:51 3.5 mg/dL (0.8-1.5) H 08/22/18 04:51 Estimated GFR 18 ml/min 08/22/18 04:51 18 % 08/22/18 04:51 Glucose 114 mg/dL (75-100) H 08/22/18 04:51 POC Glucose 150 (70-105) H 08/21/18 21:43 7.4 % (4-6) H 08/16/18 03:37 Lactic Acid 0.70 mmol/L (0.7-2.0) 08/20/18 04:53 Calcium 8.5 mg/dL (8.4-10.2) 08/22/18 04:51 Phosphorus 4.90 mg/dL (2.5-4.5) H 08/22/18 04:51 Iron 30 ug/dL (49-181) L 08/16/18 13:52 TIBC 352 mcg/dL (250-450) 08/16/18 13:52 78.2 ng/mL (13.0-400.0) 08/18/18 08:34 0.40 mg/dL (0.1-1.2) 08/15/18 18:54 AST 25 units/L (5-40) 08/15/18 18:54 ALT 15 units/L (7-56) 08/15/18 18:54 74 units/L (35-129) 08/15/18 18:54 340 units/L (55-170) H 08/15/18 21:24 CK-MB (CK-2) 5.0 ng/mL (0.0-4.0) H 08/15/18 21:24 CK-MB (CK-2) Rel Index 1.4 (0-4) 08/15/18 21:24 0.026 ng/mL (0.00-0.029) 08/15/18 21:24 NT-Pro-B Natriuret Pep 877.6 pg/mL (0-900) 08/17/18 11:13 6.1 g/dL (6.1-8.1) 08/17/18 11:13 6.7 g/dL (6.3-8.2) 08/15/18 18:54 2.9 g/dL (3.8-4.8) L 08/17/18 11:13 0.9 % 08/15/18 18:54 0.4 g/dL (0.2-0.3) H 08/17/18 11:13 0.7 g/dL (0.5-0.9) 08/17/18 11:13 0.5 g/dL (0.2-0.5) 08/17/18 11:13 1.1 g/dL (0.8-1.7) 08/17/18 11:13 Abnorm Protein Band 1 see below 08/17/18 11:13 PEP Interpretation see below H 08/17/18 11:13 Triglycerides 140 mg/dL (2-149) 08/16/18 03:37 Cholesterol 147 mg/dL (50-199) 08/16/18 03:37 88 mg/dL (50-130) 08/16/18 03:37 37 mg/dL (40-59) L 08/16/18 03:37 3.97 % 08/16/18 03:37 Straw (Yellow) 08/17/18 04:00 Clear (Clear) 08/17/18 04:00 7.0 (5.0-7.0) 08/17/18 04:00 Ur Specific [place] 1.006 (1.003-1.030) 08/17/18 04:00 100 mg/dl mg/dL (Negative) 08/17/18 04:00 Neg mg/dL (Negative) 08/17/18 04:00 Neg mg/dL (Negative) 08/17/18 04:00 Neg (Negative) 08/17/18 04:00 Neg (Negative) 08/17/18 04:00 Neg (Negative) 08/17/18 04:00 < 2.0 mg/dL (<2.0) 08/17/18 04:00 Ur Leukocyte Esterase Neg (Negative) 08/17/18 04:00 < 1.0 /HPF (0.0-6.0) 08/17/18 04:00 2.0 /HPF (0.0-6.0) 08/17/18 04:00 U Epithel Cells (Auto) 1.0 /HPF (0-13.0) 08/15/18 18:47 1+ /HPF (Negative) 08/17/18 04:00 Few /HPF 08/15/18 18:47 None seen (None Seen) 08/17/18 04:00 800 ml 08/20/18 12:09 56.1 mg/dL (0.1-20.0) H 08/20/18 12:09 Height (in) 68.0 inches 08/20/18 12:09 Weight (lb) 348.8 lbs 08/20/18 12:09 6 08/20/18 12:09 Protein/Creatinin Ratio 3.53 08/17/18 04:00 132 mmol/L 08/17/18 04:00 106 08/17/18 04:00 79 mg/dL (5-11.8) H 08/17/18 04:00 Immunofix Electrophor see below 08/17/18 11:13 Double Strand DNA Ab <1 IU/mL (<=4) 08/17/18 11:13 144 mg/dL (82-185) 08/17/18 11:13 23 mg/dL (15-53) 08/17/18 11:13 RPR Nonreactive (Nonreactive) 08/17/18 11:13 Hepatitis A IgM Ab Non-reactive (NonReactive) 08/17/18 11:13 Hep Bs Antigen Non-reactive (Negative) 08/17/18 11:13 Hep B Core IgM Ab Non-reactive (NonReactive) 08/17/18 11:13 Non-reactive (NonReactive) 08/17/18 11:13 HIV 1&2 Antibody Rapid Non react (Non React) 08/17/18 11:13 Non react (Non React) 08/17/18 11:13 Active Medications - Current Medications Current Medications: Generic Name Dose Route Start Last Admin Trade Name Freq PRN Reason Stop Dose Admin Acetaminophen 650 mg 08/16/18 03:07 08/21/18 21:55 Tylenol PO 650 mg Q4H PRN Administration Pain MILD(1-3)/Fever >100.5/FRAIRE Albuterol 2.5 mg 08/16/18 03:07 Proventil IH Q4HRT PRN Shortness Of Breath Aspirin 81 mg 08/16/18 10:00 08/22/18 09:10 Baby Aspirin PO 81 mg QDAY ARLENE Administration Atorvastatin Calcium 40 mg 08/16/18 22:00 08/21/18 21:48 Lipitor PO 40 mg QHS ALRENE Administration Carvedilol 6.25 mg 08/17/18 12:00 08/22/18 09:10 Coreg PO 6.25 mg BID ARLENE Administration Cholecalciferol 5,000 unit 08/16/18 10:00 08/22/18 09:09 Vitamin D3 PO 5,000 unit DAILY ARLENE Administration Dextrose 50 ml 08/16/18 03:13 D50w (25gm) Syringe IV PRN PRN Hypoglycemia Docusate Sodium 100 mg 08/16/18 10:00 08/22/18 09:10 Colace PO 100 mg BID ARLENE Administration Epoetin Keon 10,000 unit 08/18/18 13:00 08/20/18 15:06 Procrit SUB-Q 10,000 unit MOWEFR ARLENE Administration Gabapentin 300 mg 08/16/18 22:00 08/21/18 21:49 Neurontin PO 300 mg QHS ARLENE Administration Heparin Sodium (Porcine) 5,000 unit 08/16/18 10:00 08/22/18 09:10 Heparin SUB-Q 5,000 unit Q12HR ARLENE Administration Hydralazine HCl 50 mg 08/16/18 14:00 08/22/18 05:35 Apresoline PO 50 mg Q8HR ARLENE Administration Ceftriaxone Sodium 1 gm in 50 mls @ 100 mls/hr 08/18/18 15:00 08/22/18 09:10 Rocephin/Ns 1 Gm/50 Ml IV 100 mls/hr Q24HR ARLENE Administration Protocol Insulin Human Lispro 0 unit 08/16/18 07:30 08/22/18 09:01 Humalog SUB-Q Not Given ACHS [facility] Protocol Insulin Human Regular 5 units 08/16/18 07:30 08/22/18 09:10 Humulin R SUB-Q 5 units AC ARLENE Administration Nitroglycerin 0.4 mg 08/16/18 03:07 Nitrostat SL .Q5MIN PRN Chest Pain Ondansetron HCl 4 mg 08/16/18 03:07 08/16/18 16:39 Zofran IV 4 mg Q8H PRN Administration Nausea And Vomiting Oxycodone/Acetaminophen 1 tab 08/16/18 03:07 08/19/18 05:57 Percocet 5/325 PO 1 tab Q6H PRN Administration Pain, Moderate (4-6) Sodium Chloride 10 ml 08/16/18 10:00 08/22/18 09:11 Sodium Chloride Flush Syringe 10 Ml IV 10 ml BID ARLENE Administration Sodium Chloride 10 ml 08/16/18 03:07 08/16/18 06:17 Sodium Chloride Flush Syringe 10 Ml IV 10 ml PRN PRN Administration LINE FLUSH Nutrition/Malnutrition Assess - Dietary Evaluation Nutrition/Malnutrition Findings: Nutrition Notes Start: 08/16/18 09:25 Freq: Status: Active Protocol: Document 08/19/18 14:48 GHASSAN (Rec: 08/19/18 14:54 GHASSAN [email or web address]) Nutrition Notes Initial or Follow up Brief Note Current Diagnosis CKD(stage I-IV),Diabetes Other Pertinent Diagnosis Fluid retention in scrotum and BLE edema, wounds on toe, heel and leg Current Diet Cardiac/consistent CHO Labs/Tests Na 134 BUN 55 Cr 4.4 Pertinent Medications Reviewed [place] Body Weight (kg) 0 Subjective/Other Information Pt reports good appetite; has been consuming 75-100% of meals. Nutrition Intervention Revisit per MD consult or patient Sign Off request:
--- NOTE | 2018-08-22 11:05 | Progress Note ---
Assessment and Plan Cont present cardiac management. Follow nephrology recs. The patient has been seen in conjunction with Dr. Rizvi who agrees with the assessment and plan of care. - Patient Problems (1) Anasarca Current Visit: Yes Status: Acute (2) Acute heart failure with preserved ejection fraction Current Visit: Yes Status: Acute Qualifiers: Heart failure type: diastolic Heart failure chronicity: acute Qualified Code(s): I50.31 - Acute diastolic (congestive) heart failure (3) ROSEMARY on CKD Current Visit: Yes Status: Acute Qualifiers: Chronic kidney disease stage: stage 3 (moderate) Qualified Code(s): N18.3 - Chronic kidney disease, stage 3 (moderate) (4) Essential hypertension Current Visit: Yes Status: Chronic (5) Hyperlipemia, mixed Current Visit: Yes Status: Chronic (6) Morbid obesity Current Visit: Yes Status: Chronic Subjective Date of service: 08/22/18 Principal diagnosis: CHF; CKD;; HANSEN; Elevated d-dimer; Essential HTN; Morbid obesity; MARBELLA Interval history: pt resting comfortably in bed, BLE edema and scrotal edema persist. Objective Last Vital Signs Temp 97.8 F 08/22/18 08:00 Pulse 69 08/22/18 08:00 Resp 18 08/22/18 08:00 BP 133/53 08/22/18 08:00 Pulse Ox 94 08/22/18 08:00 - Physical Examination General: Appears Well HEENT: Positive: PERRL, Mucus Membranes Moist Neck: Positive: neck supple, trachea midline Cardiac: Positive: Reg Rate and Rhythm, S1/S2 Lungs: Positive: Decreased Breath Sounds Neuro: Positive: Grossly Intact Abdomen: Positive: Soft, Active Bowel Sounds. Negative: Tender, Distended Skin: Positive: Clear Incision: Cardiac Cath Site Musculoskeletal: No Pain, Normal Range of Motion Extremities: Present: normal, edema, +1 Edema, Other (scrotal edema) - Labs and Meds CBC 08/22/18 Range/Units 04:50 WBC 3.7 L (4.5-11.0) K/mm3 RBC 3.37 L (3.65-5.03) M/mm3 Hgb 9.0 L (11.8-15.2) gm/dl Hct 27.8 L (35.5-45.6) % Plt Count 124 L (140-440) K/mm3 Comprehensive Metabolic Panel 08/17/18 08/22/18 Range/Units 11:13 04:51 Sodium 135 L (137-145) mmol/L Potassium 4.4 (3.6-5.0) mmol/L Chloride 97.4 L (98-107) mmol/L Carbon Dioxide 23 (22-30) mmol/L BUN 64 H (9-20) mg/dL Creatinine 3.5 H (0.8-1.5) mg/dL Glucose 114 H (75-100) mg/dL Calcium 8.5 (8.4-10.2) mg/dL Albumin 2.9 L (3.8-4.8) g/dL - Imaging and Cardiology EKG: image reviewed (sinus rhythm at 76 bpm) Echo: report reviewed (2015 normal LV function.Positive bubble study PFO), other (08/17/2018 normal LV function and diastolic dysfunction mild to moderate LVH no significant regurgitations)
--- NOTE | 2018-08-22 11:51 | Progress Note ---
Assessment and Plan Severe renal failure, possible progression CKD -stable Cr but inadequate UOP and Cr clearance was 6 ml/min, discussed with patient and family, agreeable with HD, Dr Newell consulted for permcath placement and will start HD once catheter placed, he may need HD indefinitly but will cont to monitor renal recovery closely -Urine protein to cr ratio shows Nephrotic range proteinuria, obtain secondary GN workup with JELANI, Anti-DsDNA, C3/C4, RPR, Hep Panel, HIV, SPEP/UPEP, Serum IFX, could be due to DM Type 2 as well. -HIV, RPR, Hepatitis panel, DsDNA were negative, C3, C4 levels within range - negative paraprotein -Holding RAAS inhibitors -Renally dose all meds -Titrate BP meds PRN to keep BP <130/80 -Avoid Nephrotoxic meds -Strict I/Os -Mckeon Catheter: No Acute on chronic diastolic CHF: -TTE shows Diastolic CHF. BNP was 850 on 08/15/09, BNP can be falsely low in obese patients so likely underestimated in this patient. - UF with DH as above Anemia of chronic disease due to CKD: - On Epogen Essential Hypertension: - Continue on current regimen - Adjust medications as needed Diabetes Mellitus type 2 on insulin: - As per primary team Subjective Date of service: 08/22/18 Principal diagnosis: CHF; CKD;; HANSEN; Elevated d-dimer; Essential HTN; Morbid obesity; MARBELLA Interval history: SOB is mildly better Objective - Vital Signs Vital signs: Vital Signs - 12hr 08/22/18 08/22/18 08/22/18 00:09 04:10 05:35 Temperature 98.5 F Pulse Rate 74 66 66 Respiratory 20 18 Rate Blood Pressure 108/50 108/50 O2 Sat by Pulse 97 96 Oximetry 08/22/18 08:00 Temperature 97.8 F Pulse Rate 69 Respiratory 18 Rate Blood Pressure 133/53 O2 Sat by Pulse 94 Oximetry - General Appearance General appearance: well-developed, well-nourished, appears stated age EENT: ATNC, PERRL, mucous membranes moist Neck: no JVD, no carotid bruit Respiratory: Present: Clear to Ascultation. Absent: Rales, Ronchi Cardiology: regular, S1S2 Gastrointestinal: normoactive bowel sounds, no tenderness, no distended, obese Integumentary: no rash, warm and dry Neurologic: no focal deficit, no asterixis, alert and oriented x3 Musculoskeletal: other (Anasarca) Psychiatric: mood/affect appropriate, cooperative - Lab 08/22/18 04:50 08/22/18 04:51 Most recent lab results Calcium 8.5 mg/dL (8.4-10.2) 08/22/18 04:51 Phosphorus 4.90 mg/dL (2.5-4.5) H 08/22/18 04:51 56.1 mg/dL (0.1-20.0) H 08/20/18 12:09 132 mmol/L 08/17/18 04:00 79 mg/dL (5-11.8) H 08/17/18 04:00 Medications & Allergies - Medications Allergies/Adverse Reactions: Allergies canagliflozin [From Invokana] Allergy (Verified 08/15/18 17:49) Unknown IV CONTRAST DYE Allergy (Uncoded 08/15/18 17:49) Unknown Home Medications: Home Medications Medication Instructions Recorded Confirmed Last Taken Type Acetaminophen [Acetaminophen ER] 650 mg PO Q8HR PRN 08/16/18 08/16/18 Unknown History Amlodipine Besylate/Benazepril 1 each PO QDAY 08/16/18 08/16/18 Unknown History [Lotrel 10-40 mg] AtorvaSTATin [Lipitor] 40 mg PO QHS 08/16/18 08/16/18 Unknown History Cholecalciferol (Vitamin D3) 5,000 unit PO DAILY 08/16/18 08/16/18 Unknown History [Vitamin D3 5,000 UNIT] Doxylamine Succinate [Unisom] 25 mg PO QHS 08/16/18 08/16/18 Unknown History Gabapentin [Neurontin] 300 mg PO QHS 08/16/18 08/16/18 Unknown History Insulin Regular, Human [Humulin R 90 unit SQ BID 08/16/18 08/16/18 Unknown History U-500 Kwikpen] Loratadine [Claritin] 10 mg PO DAILY PRN 08/16/18 08/16/18 Unknown History Melatonin [Melatonin 3MG TAB] 3 mg PO QHS 08/16/18 08/16/18 Unknown History Niacin [Niacor] 500 mg PO DAILY 08/16/18 08/16/18 Unknown History Omeprazole 20 mg PO DAILY PRN 08/16/18 08/16/18 Unknown History Triamcinolone Acetonide [Nasacort 10.8 ml NS DAILY 08/16/18 08/16/18 Unknown History SPRAY] Active Medications: Generic Name Dose Route Start Last Admin Trade Name Freq PRN Reason Stop Dose Admin Acetaminophen 650 mg 08/16/18 03:07 08/21/18 21:55 Tylenol PO 650 mg Q4H PRN Administration Pain MILD(1-3)/Fever >100.5/FRAIRE Albuterol 2.5 mg 08/16/18 03:07 Proventil IH Q4HRT PRN Shortness Of Breath Aspirin 81 mg 08/16/18 10:00 08/22/18 09:10 Baby Aspirin PO 81 mg QDAY ARLENE Administration Atorvastatin Calcium 40 mg 08/16/18 22:00 08/21/18 21:48 Lipitor PO 40 mg QHS ARLENE Administration Carvedilol 6.25 mg 08/17/18 12:00 08/22/18 09:10 Coreg PO 6.25 mg BID ARLENE Administration Cholecalciferol 5,000 unit 08/16/18 10:00 08/22/18 09:09 Vitamin D3 PO 5,000 unit DAILY ARLENE Administration Dextrose 50 ml 08/16/18 03:13 D50w (25gm) Syringe IV PRN PRN Hypoglycemia Docusate Sodium 100 mg 08/16/18 10:00 08/22/18 09:10 Colace PO 100 mg BID ARLENE Administration Epoetin Keon 10,000 unit 08/18/18 13:00 08/20/18 15:06 Procrit SUB-Q 10,000 unit MOWEFR ARLENE Administration Gabapentin 300 mg 08/16/18 22:00 08/21/18 21:49 Neurontin PO 300 mg QHS ARLENE Administration Heparin Sodium (Porcine) 5,000 unit 08/16/18 10:00 08/22/18 09:10 Heparin SUB-Q 5,000 unit Q12HR ARLENE Administration Hydralazine HCl 50 mg 08/16/18 14:00 08/22/18 05:35 Apresoline PO 50 mg Q8HR ARLENE Administration Ceftriaxone Sodium 1 gm in 50 mls @ 100 mls/hr 08/18/18 15:00 08/22/18 09:10 Rocephin/Ns 1 Gm/50 Ml IV 100 mls/hr Q24HR ARLENE Administration Protocol Insulin Human Lispro 0 unit 08/16/18 07:30 08/22/18 09:01 Humalog SUB-Q Not Given ACHS ARLENE Protocol Insulin Human Regular 5 units 08/16/18 07:30 08/22/18 09:10 Humulin R SUB-Q 5 units AC ARLENE Administration Nitroglycerin 0.4 mg 08/16/18 03:07 Nitrostat SL .Q5MIN PRN Chest Pain Ondansetron HCl 4 mg 08/16/18 03:07 08/16/18 16:39 Zofran IV 4 mg Q8H PRN Administration Nausea And Vomiting Oxycodone/Acetaminophen 1 tab 08/16/18 03:07 08/19/18 05:57 Percocet 5/325 PO 1 tab Q6H PRN Administration Pain, Moderate (4-6) Sodium Chloride 10 ml 08/16/18 10:00 08/22/18 09:11 Sodium Chloride Flush Syringe 10 Ml IV 10 ml BID ARLENE Administration Sodium Chloride 10 ml 08/16/18 03:07 08/16/18 06:17 Sodium Chloride Flush Syringe 10 Ml IV 10 ml PRN PRN Administration LINE FLUSH
--- NOTE | 2018-08-22 12:16 | Consultation ---
History of Present Illness - Reason for Consult Consult date: 08/22/18 end-stage renal disease - History of Present Illness Patient with a history of multiple medical problems with end-stage renal disease and a creatinine clearance of 6. He is fluid overloaded. Additionally, the patient has sequela venous hypertension of his lower extremities with nonhealing wounds and hemosiderin staining and lipodermatosclerosis. Past History Past Medical History: diabetes, ESRD, hypertension, hyperlipidemia, other (CKD 3, sleep apnea.) Past Surgical History: No surgical history Social history: no significant social history Family history: no significant family history Medications and Allergies Allergies Allergy/AdvReac Type Severity Reaction Status Date / Time canagliflozin [From Invokana] Allergy Unknown Verified 08/15/18 17:49 IV CONTRAST DYE Allergy Unknown Uncoded 08/15/18 17:49 Home Medications Medication Instructions Recorded Confirmed Last Taken Type Acetaminophen [Acetaminophen ER] 650 mg PO Q8HR PRN 08/16/18 08/16/18 Unknown History Amlodipine Besylate/Benazepril 1 each PO QDAY 08/16/18 08/16/18 Unknown History [Lotrel 10-40 mg] AtorvaSTATin [Lipitor] 40 mg PO QHS 08/16/18 08/16/18 Unknown History Cholecalciferol (Vitamin D3) 5,000 unit PO DAILY 08/16/18 08/16/18 Unknown History [Vitamin D3 5,000 UNIT] Doxylamine Succinate [Unisom] 25 mg PO QHS 08/16/18 08/16/18 Unknown History Gabapentin [Neurontin] 300 mg PO QHS 08/16/18 08/16/18 Unknown History Insulin Regular, Human [Humulin R 90 unit SQ BID 08/16/18 08/16/18 Unknown History U-500 Kwikpen] Loratadine [Claritin] 10 mg PO DAILY PRN 08/16/18 08/16/18 Unknown History Melatonin [Melatonin 3MG TAB] 3 mg PO QHS 08/16/18 08/16/18 Unknown History Niacin [Niacor] 500 mg PO DAILY 08/16/18 08/16/18 Unknown History Omeprazole 20 mg PO DAILY PRN 08/16/18 08/16/18 Unknown History Triamcinolone Acetonide [Nasacort 10.8 ml NS DAILY 08/16/18 08/16/18 Unknown History SPRAY] Active Meds: Active Medications Acetaminophen (Tylenol) 650 mg PO Q4H PRN PRN Reason: Pain MILD(1-3)/Fever >100.5/FRAIRE Last Admin: 08/21/18 21:55 Dose: 650 mg Documented by: Albuterol (Proventil) 2.5 mg IH Q4HRT PRN PRN Reason: Shortness Of Breath Aspirin (Baby Aspirin) 81 mg PO QDAY [facility] Last Admin: 08/22/18 09:10 Dose: 81 mg Documented by: Atorvastatin Calcium (Lipitor) 40 mg PO QHS [facility] Last Admin: 08/21/18 21:48 Dose: 40 mg Documented by: Carvedilol (Coreg) 6.25 mg PO BID [facility] Last Admin: 08/22/18 09:10 Dose: 6.25 mg Documented by: Cholecalciferol (Vitamin D3) 5,000 unit PO DAILY [facility] Last Admin: 08/22/18 09:09 Dose: 5,000 unit Documented by: Dextrose (D50w (25gm) Syringe) 50 ml IV PRN PRN PRN Reason: Hypoglycemia Docusate Sodium (Colace) 100 mg PO BID [facility] Last Admin: 08/22/18 09:10 Dose: 100 mg Documented by: Epoetin Keon (Procrit) 10,000 unit SUB-Q MOWEFR [facility] Last Admin: 08/20/18 15:06 Dose: 10,000 unit Documented by: Gabapentin (Neurontin) 300 mg PO QHS [facility] Last Admin: 08/21/18 21:49 Dose: 300 mg Documented by: Heparin Sodium (Porcine) (Heparin) 5,000 unit SUB-Q Q12HR [facility] Last Admin: 08/22/18 09:10 Dose: 5,000 unit Documented by: Hydralazine HCl (Apresoline) 50 mg PO Q8HR [facility] Last Admin: 08/22/18 05:35 Dose: 50 mg Documented by: Ceftriaxone Sodium (Rocephin/Ns 1 Gm/50 Ml) 1 gm in 50 mls @ 100 mls/hr IV Q24HR [facility]; Protocol Last Admin: 08/22/18 09:10 Dose: 100 mls/hr Documented by: Insulin Human Lispro (Humalog) 0 unit SUB-Q ACHS [facility]; Protocol Last Admin: 08/22/18 09:01 Dose: Not Given Documented by: Insulin Human Regular (Humulin R) 5 units SUB-Q AC ARLENE Last Admin: 08/22/18 09:10 Dose: 5 units Documented by: Nitroglycerin (Nitrostat) 0.4 mg SL .Q5MIN PRN PRN Reason: Chest Pain Ondansetron HCl (Zofran) 4 mg IV Q8H PRN PRN Reason: Nausea And Vomiting Last Admin: 08/16/18 16:39 Dose: 4 mg Documented by: Oxycodone/Acetaminophen (Percocet 5/325) 1 tab PO Q6H PRN PRN Reason: Pain, Moderate (4-6) Last Admin: 08/19/18 05:57 Dose: 1 tab Documented by: Sodium Chloride (Sodium Chloride Flush Syringe 10 Ml) 10 ml IV BID [facility] Last Admin: 08/22/18 09:11 Dose: 10 ml Documented by: Sodium Chloride (Sodium Chloride Flush Syringe 10 Ml) 10 ml IV PRN PRN PRN Reason: LINE FLUSH Last Admin: 08/16/18 06:17 Dose: 10 ml Documented by: Review of Systems All systems: negative Exam - Constitutional Vitals: Temp Pulse Resp BP Pulse Ox 97.8 F 69 18 133/53 94 08/22/18 08:00 08/22/18 08:00 08/22/18 08:00 08/22/18 08:00 08/22/18 08:00 General appearance: Present: no acute distress - EENT Eyes: Present: EOM intact ENT: hearing intact - Neck Neck: Present: supple, normal ROM - Respiratory Respiratory effort: normal - Extremities Extremities: abnormal - Abdominal General gastrointestinal: Present: deferred Male genitourinary: Present: deferred - Rectal Rectal Exam: deferred - Psychiatric Psychiatric: appropriate mood/affect, cooperative Results - Labs CBC & Chem 7: 08/22/18 04:50 08/22/18 04:51 Labs: Abnormal lab results 08/17/18 08/20/18 08/21/18 Range/Units 11:13 12:09 12:25 WBC (4.5-11.0) K/mm3 RBC (3.65-5.03) M/mm3 Hgb (11.8-15.2) gm/dl Hct (35.5-45.6) % MCV (84-94) fl MCH (28-32) pg RDW (13.2-15.2) % Plt Count (140-440) K/mm3 Monocytes % (Manual) (0.0-7.3) % Eosinophils % (Manual) (0.0-4.3) % Seg Neutrophils # Man (1.8-7.7) K/mm3 Sodium (137-145) mmol/L Chloride (98-107) mmol/L BUN (9-20) mg/dL Creatinine (0.8-1.5) mg/dL Glucose (75-100) mg/dL POC Glucose 222 H (70-105) Phosphorus (2.5-4.5) mg/dL Albumin 2.9 L (3.8-4.8) g/dL Xtibd-7-Hbbtdigyr 0.4 H (0.2-0.3) g/dL PEP Interpretation see below H Urine Creatinine 56.1 H (0.1-20.0) mg/dL 08/21/18 08/21/18 08/22/18 Range/Units 17:10 21:43 04:50 WBC 3.7 L (4.5-11.0) K/mm3 RBC 3.37 L (3.65-5.03) M/mm3 Hgb 9.0 L (11.8-15.2) gm/dl Hct 27.8 L (35.5-45.6) % MCV 83 L (84-94) fl MCH 27 L (28-32) pg RDW 16.9 H (13.2-15.2) % Plt Count 124 L (140-440) K/mm3 Monocytes % (Manual) 13.0 H (0.0-7.3) % Eosinophils % (Manual) 11.0 H (0.0-4.3) % Seg Neutrophils # Man 1.6 L (1.8-7.7) K/mm3 Sodium (137-145) mmol/L Chloride (98-107) mmol/L BUN (9-20) mg/dL Creatinine (0.8-1.5) mg/dL Glucose (75-100) mg/dL POC Glucose 152 H 150 H (70-105) Phosphorus (2.5-4.5) mg/dL Albumin (3.8-4.8) g/dL Xcvum-9-Zfblqjrvo (0.2-0.3) g/dL PEP Interpretation Urine Creatinine (0.1-20.0) mg/dL 08/22/18 Range/Units 04:51 WBC (4.5-11.0) K/mm3 RBC (3.65-5.03) M/mm3 Hgb (11.8-15.2) gm/dl Hct (35.5-45.6) % MCV (84-94) fl MCH (28-32) pg RDW (13.2-15.2) % Plt Count (140-440) K/mm3 Monocytes % (Manual) (0.0-7.3) % Eosinophils % (Manual) (0.0-4.3) % Seg Neutrophils # Man (1.8-7.7) K/mm3 Sodium 135 L (137-145) mmol/L Chloride 97.4 L (98-107) mmol/L BUN 64 H (9-20) mg/dL Creatinine 3.5 H (0.8-1.5) mg/dL Glucose 114 H (75-100) mg/dL POC Glucose (70-105) Phosphorus 4.90 H (2.5-4.5) mg/dL Albumin (3.8-4.8) g/dL Xkkcq-2-Kdgnbtfdk (0.2-0.3) g/dL PEP Interpretation Urine Creatinine (0.1-20.0) mg/dL Assessment and Plan We will schedule patient for [facility] today. The . the patient, the patient plans on returning to [place] for long-term dialysis treatment. Counseled the patient that he will need to find a vascular surgeon in [place] for access placement as well as evaluation of his lower extremities given the nonhealing wound on his right lower leg.
[2018-08-22] MEDS ORDERED: HEPARIN/NS 5000 UNIT/500ML(CATH LAB) 500 ML IR ONE (12:46)
[2018-08-22] MEDS ORDERED: NACL 0.9% 250ML 250 ML ONE (12:47)
[2018-08-22] MEDS ORDERED: XYLOCAINE 1%/ EPI 1:100,000 INFILTRATI ONE (12:47)
[2018-08-22] MEDS ORDERED: VERSED ONE (12:47)
[2018-08-22] MEDS ORDERED: SUBLIMAZE ONE (12:47)
--- NOTE | 2018-08-22 13:05 | Progress Note ---
Assessment and Plan CHF (congestive heart failure) CKD (chronic kidney disease) HANSEN (dyspnea on exertion) Elevated d-dimer Essential hypertension Morbid obesity Sleep apnea with use of continuous positive airway pressure (CPAP) Subjective Date of service: 08/22/18 Principal diagnosis: CHF; CKD;; HANSEN; Elevated d-dimer; Essential HTN; Morbid obesity; MARBELLA Interval history: Patient is seen today for: CHF (congestive heart failure); CKD (chronic kidney disease); HANSEN (dyspnea on exertion); Elevated d-dimer; Essential hypertension; Morbid obesity; Sleep apnea with use of continuous positive airway pressure (CPAP) Seen and examined at bedside; 24hour events reviewed; nursing and respiratory care staff consulted; no adverse overnight events reported to me; Objective Vital Signs - 12hr 08/22/18 08/22/18 08/22/18 04:10 05:35 08:00 Temperature 98.5 F 97.8 F Pulse Rate 66 66 69 Respiratory 18 18 Rate Blood Pressure 108/50 108/50 133/53 O2 Sat by Pulse 96 94 Oximetry Constitutional: no acute distress, alert, other (Morbidly Obese.) Eyes: non-icteric ENT: oropharynx moist Neck: supple, no JVD Ascultation: Bilateral: diminished breath sounds Cardiovascular: regular rate and rhythm Gastrointestinal: normoactive bowel sounds, soft, non-tender Integumentary: cellulitis, other (Cellulitis and wounds in both lower legs.) Extremities: edema Neurologic: normal mental status, non-focal exam, pupils equal and round, CN II- XII normal Psychiatric: mood appropriate CBC and BMP: 08/22/18 04:50 08/22/18 04:51 ABG, PT/INR, D-dimer: PT/INR, D-dimer 463.24 ng/mlDDU (0-234) H 08/15/18 21:24 Abnormal lab findings: Abnormal Labs 08/15/18 08/15/18 08/15/18 18:02 18:54 18:54 WBC RBC 3.61 L Hgb 9.8 L Hct 30.1 L MCV MCH 27 L RDW 16.8 H Plt Count [place] % (Auto) 10.7 H Eos % (Auto) 5.9 H Monocytes % (Manual) Eosinophils % (Manual) Basophils % (Manual) Seg Neutrophils # Man D-Dimer Sodium Chloride 107.7 H BUN 25 H Creatinine 2.5 H Glucose 159 H POC Glucose 124 H Hemoglobin A1c Phosphorus Iron Total Creatine Kinase CK-MB (CK-2) Albumin 3.2 L Olfmn-4-Ztulhkcgo PEP Interpretation HDL Cholesterol Urine Creatinine Urine Total Protein 08/15/18 08/15/18 08/16/18 21:24 21:24 03:37 WBC RBC Hgb Hct MCV MCH RDW Plt Count [place] % (Auto) Eos % (Auto) Monocytes % (Manual) Eosinophils % (Manual) Basophils % (Manual) Seg Neutrophils # Sadi D-Dimer 463.24 H Sodium Chloride BUN Creatinine Glucose POC Glucose Hemoglobin A1c 7.4 H Phosphorus Iron Total Creatine Kinase 340 H CK-MB (CK-2) 5.0 H Albumin Hxxeg-0-Tgsxlxgqd PEP Interpretation HDL Cholesterol Urine Creatinine Urine Total Protein 08/16/18 08/16/18 08/16/18 03:37 07:54 12:01 WBC RBC Hgb Hct MCV MCH RDW Plt Count [place] % (Auto) Eos % (Auto) Monocytes % (Manual) Eosinophils % (Manual) Basophils % (Manual) Seg Neutrophils # Sadi D-Dimer Sodium Chloride BUN Creatinine Glucose POC Glucose 113 H 179 H Hemoglobin A1c Phosphorus Iron Total Creatine Kinase CK-MB (CK-2) Albumin Qedqf-7-Cvvrwyjpp PEP Interpretation HDL Cholesterol 37 L Urine Creatinine Urine Total Protein 08/16/18 08/16/18 08/16/18 13:52 17:44 21:21 WBC RBC Hgb Hct MCV MCH RDW Plt Count [place] % (Auto) Eos % (Auto) Monocytes % (Manual) Eosinophils % (Manual) Basophils % (Manual) Seg Neutrophils # Sadi D-Dimer Sodium Chloride BUN Creatinine Glucose POC Glucose 221 H 165 H Hemoglobin A1c Phosphorus Iron 30 L Total Creatine Kinase CK-MB (CK-2) Albumin Naphm-1-Pordtwrjf PEP Interpretation HDL Cholesterol Urine Creatinine Urine Total Protein 08/17/18 08/17/18 08/17/18 04:00 07:30 07:30 WBC RBC Hgb 10.3 L Hct 31.5 L MCV 82 L MCH 27 L RDW 16.8 H Plt Count [place] % (Auto) 14.0 H Eos % (Auto) 6.6 H Monocytes % (Manual) Eosinophils % (Manual) Basophils % (Manual) Seg Neutrophils # Sadi D-Dimer Sodium Chloride BUN 32 H Creatinine 2.9 H Glucose 180 H POC Glucose Hemoglobin A1c Phosphorus Iron Total Creatine Kinase CK-MB (CK-2) Albumin Mvigz-5-Fzerzznwb PEP Interpretation HDL Cholesterol Urine Creatinine 22.4 H Urine Total Protein 79 H 08/17/18 08/17/18 08/17/18 07:34 11:13 12:17 WBC RBC Hgb Hct MCV MCH RDW Plt Count [place] % (Auto) Eos % (Auto) Monocytes % (Manual) Eosinophils % (Manual) Basophils % (Manual) Seg Neutrophils # Sadi D-Dimer Sodium Chloride BUN Creatinine Glucose POC Glucose 169 H 207 H Hemoglobin A1c Phosphorus Iron Total Creatine Kinase CK-MB (CK-2) Albumin 2.9 L Wjrkd-2-Rkxkvrkjc 0.4 H PEP Interpretation see below H HDL Cholesterol Urine Creatinine Urine Total Protein 08/17/18 08/17/18 08/18/18 16:36 21:17 07:05 WBC RBC Hgb Hct MCV MCH RDW Plt Count [place] % (Auto) Eos % (Auto) Monocytes % (Manual) Eosinophils % (Manual) Basophils % (Manual) Seg Neutrophils # Sadi D-Dimer Sodium 134 L Chloride 95.9 L BUN 43 H Creatinine 3.8 H Glucose 150 H POC Glucose 184 H 209 H Hemoglobin A1c Phosphorus Iron Total Creatine Kinase CK-MB (CK-2) Albumin Ntvmi-6-Iubmhrcfv PEP Interpretation HDL Cholesterol Urine Creatinine Urine Total Protein 08/18/18 08/18/18 08/18/18 07:53 08:34 11:53 WBC RBC Hgb 10.8 L Hct 33.8 L MCV MCH 27 L RDW 16.3 H Plt Count [place] % (Auto) Eos % (Auto) Monocytes % (Manual) Eosinophils % (Manual) Basophils % (Manual) Seg Neutrophils # Sadi D-Dimer Sodium Chloride BUN Creatinine Glucose POC Glucose 139 H 191 H Hemoglobin A1c Phosphorus Iron Total Creatine Kinase CK-MB (CK-2) Albumin Zmtcl-8-Vdqcyctrp PEP Interpretation HDL Cholesterol Urine Creatinine Urine Total Protein 08/18/18 08/18/18 08/19/18 15:54 20:49 05:28 WBC RBC Hgb 9.7 L Hct 30.1 L MCV 82 L MCH 26 L RDW 16.6 H Plt Count 136 L [place] % (Auto) Eos % (Auto) Monocytes % (Manual) Eosinophils % (Manual) Basophils % (Manual) Seg Neutrophils # Sadi D-Dimer Sodium Chloride BUN Creatinine Glucose POC Glucose 150 H 138 H Hemoglobin A1c Phosphorus Iron Total Creatine Kinase CK-MB (CK-2) Albumin Kjtla-8-Dlnuvnwuu PEP Interpretation HDL Cholesterol Urine Creatinine Urine Total Protein 08/19/18 08/19/18 08/19/18 05:28 07:43 11:57 WBC RBC Hgb Hct MCV MCH RDW Plt Count [place] % (Auto) Eos % (Auto) Monocytes % (Manual) Eosinophils % (Manual) Basophils % (Manual) Seg Neutrophils # Sadi D-Dimer Sodium 134 L Chloride 96.2 L BUN 55 H Creatinine 4.4 H Glucose 118 H POC Glucose 162 H 280 H Hemoglobin A1c Phosphorus Iron Total Creatine Kinase CK-MB (CK-2) Albumin Kpwbo-7-Klqqbvzvv PEP Interpretation HDL Cholesterol Urine Creatinine Urine Total Protein 08/19/18 08/19/18 08/20/18 15:41 21:44 04:53 WBC 3.5 L RBC 3.58 L Hgb 9.4 L Hct 29.5 L MCV 83 L MCH 26 L RDW 16.4 H Plt Count 121 L [place] % (Auto) Eos % (Auto) Monocytes % (Manual) 16.0 H Eosinophils % (Manual) Basophils % (Manual) 3.0 H Seg Neutrophils # Sadi 1.6 L D-Dimer Sodium Chloride BUN Creatinine Glucose POC Glucose 167 H 234 H Hemoglobin A1c Phosphorus Iron Total Creatine Kinase CK-MB (CK-2) Albumin Idumc-4-Ptxlozttb PEP Interpretation HDL Cholesterol Urine Creatinine Urine Total Protein 08/20/18 08/20/18 08/20/18 04:53 08:13 12:09 WBC RBC Hgb Hct MCV MCH RDW Plt Count [place] % (Auto) Eos % (Auto) Monocytes % (Manual) Eosinophils % (Manual) Basophils % (Manual) Seg Neutrophils # Sadi D-Dimer Sodium 136 L Chloride BUN 57 H Creatinine 3.3 H Glucose 136 H POC Glucose 124 H Hemoglobin A1c Phosphorus 5.50 H Iron Total Creatine Kinase CK-MB (CK-2) Albumin Lkvvj-0-Wvwmqnhkq PEP Interpretation HDL Cholesterol Urine Creatinine 56.1 H Urine Total Protein 08/20/18 08/20/18 08/20/18 12:49 18:26 20:53 WBC RBC Hgb Hct MCV MCH RDW Plt Count [place] % (Auto) Eos % (Auto) Monocytes % (Manual) Eosinophils % (Manual) Basophils % (Manual) Seg Neutrophils # Sadi D-Dimer Sodium Chloride BUN Creatinine Glucose POC Glucose 145 H 175 H 184 H Hemoglobin A1c Phosphorus Iron Total Creatine Kinase CK-MB (CK-2) Albumin Omxjj-1-Pllupgdnr PEP Interpretation HDL Cholesterol Urine Creatinine Urine Total Protein 08/21/18 08/21/18 08/21/18 04:28 04:28 08:58 WBC 3.8 L RBC 3.42 L Hgb 9.2 L Hct 28.4 L MCV 83 L MCH 27 L RDW 16.4 H Plt Count 126 L [place] % (Auto) Eos % (Auto) Monocytes % (Manual) 15.0 H Eosinophils % (Manual) Basophils % (Manual) Seg Neutrophils # Man D-Dimer Sodium 134 L Chloride 96.5 L BUN 59 H Creatinine 3.4 H Glucose 190 H POC Glucose 159 H Hemoglobin A1c Phosphorus 5.10 H Iron Total Creatine Kinase CK-MB (CK-2) Albumin [place]u-1-Ddindysed PEP Interpretation HDL Cholesterol Urine Creatinine Urine Total Protein 08/21/18 08/21/18 08/21/18 12:25 17:10 21:43 WBC RBC Hgb Hct MCV MCH RDW Plt Count [place] % (Auto) Eos % (Auto) Monocytes % (Manual) Eosinophils % (Manual) Basophils % (Manual) Seg Neutrophils # Man D-Dimer Sodium Chloride BUN Creatinine Glucose POC Glucose 222 H 152 H 150 H Hemoglobin A1c Phosphorus Iron Total Creatine Kinase CK-MB (CK-2) Albumin Jphyl-5-Xltgthhul PEP Interpretation HDL Cholesterol Urine Creatinine Urine Total Protein 08/22/18 08/22/18 08/22/18 04:50 04:51 08:08 WBC 3.7 L RBC 3.37 L Hgb 9.0 L Hct 27.8 L MCV 83 L MCH 27 L RDW 16.9 H Plt Count 124 L [place] % (Auto) Eos % (Auto) Monocytes % (Manual) 13.0 H Eosinophils % (Manual) 11.0 H Basophils % (Manual) Seg Neutrophils # Man 1.6 L D-Dimer Sodium 135 L Chloride 97.4 L BUN 64 H Creatinine 3.5 H Glucose 114 H POC Glucose 117 H Hemoglobin A1c Phosphorus 4.90 H Iron Total Creatine Kinase CK-MB (CK-2) Albumin Uynvo-9-Zuyuhwviq PEP Interpretation HDL Cholesterol Urine Creatinine Urine Total Protein
[2018-08-22] MEDS: HEPARIN 10,000 UNITS/10 ML ONE ×2 (13:28→13:29)
--- NOTE | 2018-08-22 13:36 | Operative Report ---
Operative Report Operative Report: Exam: Ultrasound and fluoroscopic guided placement of tunneled hemodialysis catheter Clinical indication: Patient with a history of end-stage renal disease requiring dialysis access for volume overload Date: 08/22/2018 Procedure: Following an explanation of the risks, benefits and alternatives; written informed consent was obtained. The patient was brought to the angiographic suite and placed in supine position on the examination table. Initial ultrasound evaluation of the neck demonstrated a patent right internal jugular vein. The patient's right neck and chest wall were prepped and draped in the usual sterile fashion. 1% lidocaine was used for anesthesia. Under ultrasound guidance, the right internal jugular vein was cannulated with a 7 cm 18-gauge needle. A 0.035 guidewire was advanced centrally under fluoroscopy into the IVC to document intravenous positioning and for anchoring. The needle was removed. An appropriate catheter exit site was chosen along the lateral right chest wall. 1% lidocaine was used for anesthesia at the catheter exit site and along the tunnel tract. A Bard 23 cm wide path tunneled hemodialysis catheter was then tunneled antegrade from the catheter exit site to the venotomy site. Following serial dilation over the guidewire under fluoroscopy, a 16 Croatian peel-away sheath was placed over the guidewire under fluoroscopy and advanced centrally. The trocar and guidewire were removed. The catheter was placed through the peel-away sheath in the peel-away sheath removed. The catheter tip was then positioned at the cavoatrial junction. Both ports flushed and aspirated easily and were then locked with appropriate volumes of heparin. The venotomy was closed using 4-0 Vicryl suture and Dermabond. 4-0 Vicryl suture and Dermabond were also used to approximate the catheter exit site. Sterile dressings were then applied. The patient tolerated the procedure well. There were no immediate postprocedure complications. Conscious sedation was performed of the guidance of radiologic nursing. Continuous cardiopulmonary monitoring was utilized. Impression: Ultrasound and fluoroscopic guided placement of tunneled hemodialysis catheter via the right internal jugular vein.
--- NOTE | 2018-08-22 17:09 | Progress Note ---
Assessment and Plan CHF (congestive heart failure) CKD (chronic kidney disease) HANSEN (dyspnea on exertion) Elevated d-dimer Essential hypertension Morbid obesity Sleep apnea with use of continuous positive airway pressure (CPAP) - continue supplemental oxygen as needed to keep O2 sats > 90% - continue bronchodilators with pulmonary hygiene per RT - gentle diuresis to control pulmonary edema element on CXR prn *(watching for renal indices also) - suspect deconditioning playing a major role in HANSEN; continue PT/OT as tolerated - continue BIPAP therapy qhs re: MARBELLA/OHS - weight loss counseled - VQ scan and lower extremity dopplers normal; no further VTE w/up - continue chronic disease meds per attending - neurology evaluation ongoing - GI & VTE prophylaxis - Flu & pneumovax per protocol .. re-evaluate in am & prn Subjective Date of service: 08/22/18 Principal diagnosis: CHF; CKD;; HANSEN; Elevated d-dimer; Essential HTN; Morbid obesity; MARBELLA Interval history: Patient is seen today for: CHF (congestive heart failure); CKD (chronic kidney disease); HANSEN (dyspnea on exertion); Elevated d-dimer; Essential hypertension; Morbid obesity; Sleep apnea with use of continuous positive airway pressure (CPAP) Seen and examined at bedside; 24hour events reviewed; nursing and respiratory care staff consulted; no adverse overnight events reported to me; for HD/UF today; denies acute chest pains or palpitations; still with HANSEN; No N/V/F/C Objective Vital Signs - 12hr 08/22/18 08/22/18 05:35 08:00 Temperature 97.8 F Pulse Rate 66 69 Respiratory 18 Rate Blood Pressure 108/50 133/53 O2 Sat by Pulse 94 Oximetry Constitutional: no acute distress, alert, other (Morbidly Obese middle aged CM) Eyes: non-icteric ENT: oropharynx moist, other (mallampati 4) Neck: supple, no JVD Effort: mildly labored Ascultation: Bilateral: diminished breath sounds, rhonchi (scant in bases) Percussion: Bilateral: not dull Cardiovascular: regular rate and rhythm Gastrointestinal: normoactive bowel sounds, soft, non-tender, other (protuberant) Integumentary: cellulitis, other (Cellulitis and wounds in both lower legs.) Extremities: no cyanosis, pink and warm, pulses normal, edema (trace to 1+) Neurologic: normal mental status, non-focal exam, pupils equal and round, CN II- XII normal Psychiatric: mood appropriate, affect normal CBC and BMP: 08/23/18 05:09 08/23/18 05:09 ABG, PT/INR, D-dimer: PT/INR, D-dimer 463.24 ng/mlDDU (0-234) H 08/15/18 21:24 Abnormal lab findings: Abnormal Labs 08/15/18 08/15/18 08/15/18 18:02 18:54 18:54 WBC RBC 3.61 L Hgb 9.8 L Hct 30.1 L MCV MCH 27 L RDW 16.8 H Plt Count Wirt % (Auto) 10.7 H Eos % (Auto) 5.9 H Monocytes % (Manual) Eosinophils % (Manual) Basophils % (Manual) Seg Neutrophils # Man D-Dimer Sodium Chloride 107.7 H BUN 25 H Creatinine 2.5 H Glucose 159 H POC Glucose 124 H Hemoglobin A1c Phosphorus Iron Total Creatine Kinase CK-MB (CK-2) Albumin 3.2 L Lymsq-7-Aqrvrnmqa PEP Interpretation HDL Cholesterol Urine Creatinine Urine Total Protein 08/15/18 08/15/18 08/16/18 21:24 21:24 03:37 WBC RBC Hgb Hct MCV MCH RDW Plt Count Wirt % (Auto) Eos % (Auto) Monocytes % (Manual) Eosinophils % (Manual) Basophils % (Manual) Seg Neutrophils # Man D-Dimer 463.24 H Sodium Chloride BUN Creatinine Glucose POC Glucose Hemoglobin A1c 7.4 H Phosphorus Iron Total Creatine Kinase 340 H CK-MB (CK-2) 5.0 H Albumin Eojfz-1-Uqutqpgnk PEP Interpretation HDL Cholesterol Urine Creatinine Urine Total Protein 08/16/18 08/16/18 08/16/18 03:37 07:54 12:01 WBC RBC Hgb Hct MCV MCH RDW Plt Count Wirt % (Auto) Eos % (Auto) Monocytes % (Manual) Eosinophils % (Manual) Basophils % (Manual) Seg Neutrophils # Man D-Dimer Sodium Chloride BUN Creatinine Glucose POC Glucose 113 H 179 H Hemoglobin A1c Phosphorus Iron Total Creatine Kinase CK-MB (CK-2) Albumin Xemyy-6-Qjifbyuvg PEP Interpretation HDL Cholesterol 37 L Urine Creatinine Urine Total Protein 08/16/18 08/16/18 08/16/18 13:52 17:44 21:21 WBC RBC Hgb Hct MCV MCH RDW Plt Count Wirt % (Auto) Eos % (Auto) Monocytes % (Manual) Eosinophils % (Manual) Basophils % (Manual) Seg Neutrophils # Man D-Dimer Sodium Chloride BUN Creatinine Glucose POC Glucose 221 H 165 H Hemoglobin A1c Phosphorus Iron 30 L Total Creatine Kinase CK-MB (CK-2) Albumin Ylyth-2-Mpcorasvv PEP Interpretation HDL Cholesterol Urine Creatinine Urine Total Protein 08/17/18 08/17/18 08/17/18 04:00 07:30 07:30 WBC RBC Hgb 10.3 L Hct 31.5 L MCV 82 L MCH 27 L RDW 16.8 H Plt Count Wirt % (Auto) 14.0 H Eos % (Auto) 6.6 H Monocytes % (Manual) Eosinophils % (Manual) Basophils % (Manual) Seg Neutrophils # Sadi D-Dimer Sodium Chloride BUN 32 H Creatinine 2.9 H Glucose 180 H POC Glucose Hemoglobin A1c Phosphorus Iron Total Creatine Kinase CK-MB (CK-2) Albumin Mfigq-8-Gbcbnsvwi PEP Interpretation HDL Cholesterol Urine Creatinine 22.4 H Urine Total Protein 79 H 08/17/18 08/17/18 08/17/18 07:34 11:13 12:17 WBC RBC Hgb Hct MCV MCH RDW Plt Count Wirt % (Auto) Eos % (Auto) Monocytes % (Manual) Eosinophils % (Manual) Basophils % (Manual) Seg Neutrophils # Sadi D-Dimer Sodium Chloride BUN Creatinine Glucose POC Glucose 169 H 207 H Hemoglobin A1c Phosphorus Iron Total Creatine Kinase CK-MB (CK-2) Albumin 2.9 L Xkkzt-4-Meojqzwpe 0.4 H PEP Interpretation see below H HDL Cholesterol Urine Creatinine Urine Total Protein 08/17/18 08/17/18 08/18/18 16:36 21:17 07:05 WBC RBC Hgb Hct MCV MCH RDW Plt Count Wirt % (Auto) Eos % (Auto) Monocytes % (Manual) Eosinophils % (Manual) Basophils % (Manual) Seg Neutrophils # Man D-Dimer Sodium 134 L Chloride 95.9 L BUN 43 H Creatinine 3.8 H Glucose 150 H POC Glucose 184 H 209 H Hemoglobin A1c Phosphorus Iron Total Creatine Kinase CK-MB (CK-2) Albumin Rgipd-8-Oerybzapk PEP Interpretation HDL Cholesterol Urine Creatinine Urine Total Protein 08/18/18 08/18/18 08/18/18 07:53 08:34 11:53 WBC RBC Hgb 10.8 L Hct 33.8 L MCV MCH 27 L RDW 16.3 H Plt Count Wirt % (Auto) Eos % (Auto) Monocytes % (Manual) Eosinophils % (Manual) Basophils % (Manual) Seg Neutrophils # Sadi D-Dimer Sodium Chloride BUN Creatinine Glucose POC Glucose 139 H 191 H Hemoglobin A1c Phosphorus Iron Total Creatine Kinase CK-MB (CK-2) Albumin Zaizh-3-Tjbqxbshf PEP Interpretation HDL Cholesterol Urine Creatinine Urine Total Protein 08/18/18 08/18/18 08/19/18 15:54 20:49 05:28 WBC RBC Hgb 9.7 L Hct 30.1 L MCV 82 L MCH 26 L RDW 16.6 H Plt Count 136 L Wirt % (Auto) Eos % (Auto) Monocytes % (Manual) Eosinophils % (Manual) Basophils % (Manual) Seg Neutrophils # Sadi D-Dimer Sodium Chloride BUN Creatinine Glucose POC Glucose 150 H 138 H Hemoglobin A1c Phosphorus Iron Total Creatine Kinase CK-MB (CK-2) Albumin Zvedg-3-Bahnqgwvt PEP Interpretation HDL Cholesterol Urine Creatinine Urine Total Protein 08/19/18 08/19/18 08/19/18 05:28 07:43 11:57 WBC RBC Hgb Hct MCV MCH RDW Plt Count Wirt % (Auto) Eos % (Auto) Monocytes % (Manual) Eosinophils % (Manual) Basophils % (Manual) Seg Neutrophils # Sadi D-Dimer Sodium 134 L Chloride 96.2 L BUN 55 H Creatinine 4.4 H Glucose 118 H POC Glucose 162 H 280 H Hemoglobin A1c Phosphorus Iron Total Creatine Kinase CK-MB (CK-2) Albumin Mknxs-7-Qzrmkmabb PEP Interpretation HDL Cholesterol Urine Creatinine Urine Total Protein 08/19/18 08/19/18 08/20/18 15:41 21:44 04:53 WBC 3.5 L RBC 3.58 L Hgb 9.4 L Hct 29.5 L MCV 83 L MCH 26 L RDW 16.4 H Plt Count 121 L Wirt % (Auto) Eos % (Auto) Monocytes % (Manual) 16.0 H Eosinophils % (Manual) Basophils % (Manual) 3.0 H Seg Neutrophils # Sadi 1.6 L D-Dimer Sodium Chloride BUN Creatinine Glucose POC Glucose 167 H 234 H Hemoglobin A1c Phosphorus Iron Total Creatine Kinase CK-MB (CK-2) Albumin Zyrlw-2-Rfxeqbycy PEP Interpretation HDL Cholesterol Urine Creatinine Urine Total Protein 08/20/18 08/20/18 08/20/18 04:53 08:13 12:09 WBC RBC Hgb Hct MCV MCH RDW Plt Count Wirt % (Auto) Eos % (Auto) Monocytes % (Manual) Eosinophils % (Manual) Basophils % (Manual) Seg Neutrophils # Man D-Dimer Sodium 136 L Chloride BUN 57 H Creatinine 3.3 H Glucose 136 H POC Glucose 124 H Hemoglobin A1c Phosphorus 5.50 H Iron Total Creatine Kinase CK-MB (CK-2) Albumin Ukfnh-6-Kvkpeifin PEP Interpretation HDL Cholesterol Urine Creatinine 56.1 H Urine Total Protein 08/20/18 08/20/18 08/20/18 12:49 18:26 20:53 WBC RBC Hgb Hct MCV MCH RDW Plt Count Wirt % (Auto) Eos % (Auto) Monocytes % (Manual) Eosinophils % (Manual) Basophils % (Manual) Seg Neutrophils # Sadi D-Dimer Sodium Chloride BUN Creatinine Glucose POC Glucose 145 H 175 H 184 H Hemoglobin A1c Phosphorus Iron Total Creatine Kinase CK-MB (CK-2) Albumin Vlfog-7-Qvqruhacz PEP Interpretation HDL Cholesterol Urine Creatinine Urine Total Protein 08/21/18 08/21/18 08/21/18 04:28 04:28 08:58 WBC 3.8 L RBC 3.42 L Hgb 9.2 L Hct 28.4 L MCV 83 L MCH 27 L RDW 16.4 H Plt Count 126 L Wirt % (Auto) Eos % (Auto) Monocytes % (Manual) 15.0 H Eosinophils % (Manual) Basophils % (Manual) Seg Neutrophils # Sadi D-Dimer Sodium 134 L Chloride 96.5 L BUN 59 H Creatinine 3.4 H Glucose 190 H POC Glucose 159 H Hemoglobin A1c Phosphorus 5.10 H Iron Total Creatine Kinase CK-MB (CK-2) Albumin Uslsb-2-Dwgeecaao PEP Interpretation HDL Cholesterol Urine Creatinine Urine Total Protein 08/21/18 08/21/18 08/21/18 12:25 17:10 21:43 WBC RBC Hgb Hct MCV MCH RDW Plt Count Wirt % (Auto) Eos % (Auto) Monocytes % (Manual) Eosinophils % (Manual) Basophils % (Manual) Seg Neutrophils # Man D-Dimer Sodium Chloride BUN Creatinine Glucose POC Glucose 222 H 152 H 150 H Hemoglobin A1c Phosphorus Iron Total Creatine Kinase CK-MB (CK-2) Albumin Mioak-2-Qcvffpvqx PEP Interpretation HDL Cholesterol Urine Creatinine Urine Total Protein 08/22/18 08/22/18 08/22/18 04:50 04:51 08:08 WBC 3.7 L RBC 3.37 L Hgb 9.0 L Hct 27.8 L MCV 83 L MCH 27 L RDW 16.9 H Plt Count 124 L Wirt % (Auto) Eos % (Auto) Monocytes % (Manual) 13.0 H Eosinophils % (Manual) 11.0 H Basophils % (Manual) Seg Neutrophils # Man 1.6 L D-Dimer Sodium 135 L Chloride 97.4 L BUN 64 H Creatinine 3.5 H Glucose 114 H POC Glucose 117 H Hemoglobin A1c Phosphorus 4.90 H Iron Total Creatine Kinase CK-MB (CK-2) Albumin Nhluw-8-Ndszjuoxf PEP Interpretation HDL Cholesterol Urine Creatinine Urine Total Protein Chest x-ray: image reviewed (hypoventilation with vascular crowding +/- mild pulmonary edema) Allied health notes reviewed: nursing
[2018-08-22 17:59] LABS: ANA Screen, IFA Negative (Negative)
[2018-08-22] MEDS ORDERED: NACL 0.9 (PRIMING MACHINE ONLY DIALYSIS) MC ONE (18:04)
[2018-08-22] MEDS: PROCRIT SUB-Q SCH (18:19)
[2018-08-22] MEDS: NEURONTIN PO SCH (21:57)
[2018-08-22] MEDS: PERCOCET 5/325 PO PRN (23:48)
[2018-08-23] MEDS: APRESOLINE PO SCH ×3 (05:43→22:06)
[2018-08-23 06:18] LABS: Hematocrit 29.6 % (35.5-45.6); Hemoglobin 9.6 gm/dl (11.8-15.2); Mean Corpuscular HGB Conc 33 % (32-34); Mean Corpuscular Volume 82 fl (84-94); Platelet Count 134 K/mm3 (140-440); Red Cell Distribution Width 16.6 % (13.2-15.2)
[2018-08-23 06:38] LABS: Calcium 8.8 mg/dL (8.4-10.2)
[2018-08-23 07:39] LABS: Basophils % (Manual) 0 % (0.0-1.8); Total Cells Counted 100
[2018-08-23 07:40] LABS: Anisocytosis 1+; Platelet Estimate Consistent w Auto
[2018-08-23] MEDS: HumuLIN R SUB-Q SCH ×3 (08:03→18:25)
[2018-08-23] MEDS: HumaLOG SUB-Q SCH ×4 (08:04→22:07)
--- NOTE | 2018-08-23 08:30 | Progress Note ---
Assessment and Plan Acute kidney injury possibly ATN from Nephrotic range proteinuria, Cardiorenal syndrome on CKD: -Renal function reviewed. Serum creatinine 2.6 today and yesterday's was 3.5, UOP recorded is 600 ml -24 hour urine collection done revealed creatinine clearance of 6 ml/min -Patient had Perm-catheter placed yesterday for hemodialysis initiation -Patient received first hemodialysis treatment yesterday and is scheduled to receive second treatment today -Secondary GN workup was negative -Renal ultrasound on 08/16/18- Chronic medical renal disease. No Hydronephrosis. -No ACEI or ARB due to advanced renal failure -Renally dose all medications -Avoid Nephrotoxic agents -Strict I/O's monitoring -Mckeon Catheter: None present -Will monitor for renal recovery Congestive Diastolic heart failure -Echo- LVEF is 55-60% -S/P IV Lasix -UF with HD -Cardiology onboard Anemia of chronic disease due to CKD: -On Epogen 10,000 units SQ every M,W,F -Monitor H/H Essential Hypertension: - Continue on current regimen - Adjust medications as needed Diabetes Mellitus type 2 on insulin: -On insulin as per primary team Subjective Date of service: 08/23/18 Principal diagnosis: CHF; CKD;; HANSEN; Elevated d-dimer; Essential HTN; Morbid obesity; MARBELLA Interval history: Patient seen lying in bed. States his chest is sore where perm-catheter is located. States he feels cold. Objective - Vital Signs Vital signs: Vital Signs - 12hr 08/22/18 08/22/18 08/22/18 20:46 21:00 21:57 Temperature Pulse Rate 71 73 Respiratory 20 Rate Respiratory Rate [denies] Blood Pressure 153/64 O2 Sat by Pulse 99 Oximetry 08/22/18 08/22/18 08/22/18 22:00 22:12 23:48 Temperature Pulse Rate Respiratory 20 Rate Respiratory 20 Rate [denies] Blood Pressure O2 Sat by Pulse 98 Oximetry 08/22/18 08/23/18 08/23/18 23:53 00:48 01:14 Temperature 97.8 F Pulse Rate 69 78 Respiratory 20 18 19 Rate Respiratory Rate [denies] Blood Pressure 134/71 O2 Sat by Pulse 94 96 Oximetry 08/23/18 08/23/18 08/23/18 05:07 05:43 07:37 Temperature 97.6 F 98.0 F Pulse Rate 61 61 75 Respiratory 20 18 Rate Respiratory Rate [denies] Blood Pressure 139/66 139/66 136/56 O2 Sat by Pulse 90 95 Oximetry - General Appearance General appearance: well-developed, appears stated age, fatigue EENT: ATNC, PERRL, hearing intact, vision intact Neck: no JVD, supple Respiratory: Present: Decreased Breath Sounds Cardiology: regular, S1S2 Gastrointestinal: normoactive bowel sounds Integumentary: warm and dry Neurologic: alert and oriented x3 Musculoskeletal: joint swelling, other (3+ edema to BLE) - Lab 08/23/18 05:09 08/23/18 05:09 Most recent lab results Calcium 8.8 mg/dL (8.4-10.2) 08/23/18 05:09 Phosphorus 4.30 mg/dL (2.5-4.5) 08/23/18 05:09 56.1 mg/dL (0.1-20.0) H 08/20/18 12:09 132 mmol/L 08/17/18 04:00 79 mg/dL (5-11.8) H 08/17/18 04:00 Medications & Allergies - Medications Allergies/Adverse Reactions: Allergies canagliflozin [From Invokana] Allergy (Verified 08/15/18 17:49) Unknown IV CONTRAST DYE Allergy (Uncoded 08/15/18 17:49) Unknown Home Medications: Home Medications Medication Instructions Recorded Confirmed Last Taken Type Acetaminophen [Acetaminophen ER] 650 mg PO Q8HR PRN 08/16/18 08/16/18 Unknown History Amlodipine Besylate/Benazepril 1 each PO QDAY 08/16/18 08/16/18 Unknown History [Lotrel 10-40 mg] AtorvaSTATin [Lipitor] 40 mg PO QHS 08/16/18 08/16/18 Unknown History Cholecalciferol (Vitamin D3) 5,000 unit PO DAILY 08/16/18 08/16/18 Unknown History [Vitamin D3 5,000 UNIT] Doxylamine Succinate [Unisom] 25 mg PO QHS 08/16/18 08/16/18 Unknown History Gabapentin [Neurontin] 300 mg PO QHS 08/16/18 08/16/18 Unknown History Insulin Regular, Human [Humulin R 90 unit SQ BID 08/16/18 08/16/18 Unknown History U-500 Kwikpen] Loratadine [Claritin] 10 mg PO DAILY PRN 08/16/18 08/16/18 Unknown History Melatonin [Melatonin 3MG TAB] 3 mg PO QHS 08/16/18 08/16/18 Unknown History Niacin [Niacor] 500 mg PO DAILY 08/16/18 08/16/18 Unknown History Omeprazole 20 mg PO DAILY PRN 08/16/18 08/16/18 Unknown History Triamcinolone Acetonide [Nasacort 10.8 ml NS DAILY 08/16/18 08/16/18 Unknown History SPRAY] Active Medications: Generic Name Dose Route Start Last Admin Trade Name Freq PRN Reason Stop Dose Admin Acetaminophen 650 mg 08/16/18 03:07 08/21/18 21:55 Tylenol PO 650 mg Q4H PRN Administration Pain MILD(1-3)/Fever >100.5/FRAIRE Albuterol 2.5 mg 08/16/18 03:07 Proventil IH Q4HRT PRN Shortness Of Breath Aspirin 81 mg 08/16/18 10:00 08/22/18 09:10 Baby Aspirin PO 81 mg QDAY ARLENE Administration Atorvastatin Calcium 40 mg 08/16/18 22:00 08/22/18 21:57 Lipitor PO 40 mg QHS ARLENE Administration Carvedilol 6.25 mg 08/17/18 12:00 08/22/18 21:57 Coreg PO 6.25 mg BID ARLENE Administration Cholecalciferol 5,000 unit 08/16/18 10:00 08/22/18 09:09 Vitamin D3 PO 5,000 unit DAILY ARLENE Administration Dextrose 50 ml 08/16/18 03:13 D50w (25gm) Syringe IV PRN PRN Hypoglycemia Docusate Sodium 100 mg 08/16/18 10:00 08/22/18 21:57 Colace PO 100 mg BID ARLENE Administration Epoetin Keon 10,000 unit 08/18/18 13:00 08/22/18 18:19 Procrit SUB-Q 10,000 unit MOWEFR ARLENE Administration Gabapentin 300 mg 08/16/18 22:00 08/22/18 21:57 Neurontin PO 300 mg QHS ARLENE Administration Heparin Sodium (Porcine) 5,000 unit 08/16/18 10:00 08/22/18 21:58 Heparin SUB-Q 5,000 unit Q12HR ARLENE Administration Hydralazine HCl 50 mg 08/16/18 14:00 08/23/18 05:43 Apresoline PO 50 mg Q8HR ARLENE Administration Ceftriaxone Sodium 1 gm in 50 mls @ 100 mls/hr 08/18/18 15:00 08/22/18 09:10 Rocephin/Ns 1 Gm/50 Ml IV 100 mls/hr Q24HR ARLENE Administration Protocol Insulin Human Lispro 0 unit 08/16/18 07:30 08/23/18 08:04 Humalog SUB-Q 3 unit ACHS ARLENE Administration Protocol Insulin Human Regular 5 units 08/16/18 07:30 08/23/18 08:03 Humulin R SUB-Q 5 units AC ARLENE Administration Nitroglycerin 0.4 mg 08/16/18 03:07 Nitrostat SL .Q5MIN PRN Chest Pain Ondansetron HCl 4 mg 08/16/18 03:07 08/16/18 16:39 Zofran IV 4 mg Q8H PRN Administration Nausea And Vomiting Oxycodone/Acetaminophen 1 tab 08/16/18 03:07 08/22/18 23:48 Percocet 5/325 PO 1 tab Q6H PRN Administration Pain, Moderate (4-6) Sodium Chloride 10 ml 08/16/18 10:00 08/22/18 21:58 Sodium Chloride Flush Syringe 10 Ml IV 10 ml BID ARLENE Administration Sodium Chloride 10 ml 08/16/18 03:07 08/16/18 06:17 Sodium Chloride Flush Syringe 10 Ml IV 10 ml PRN PRN Administration LINE FLUSH
[2018-08-23] MEDS: VITAMIN D3 PO SCH (09:36)
[2018-08-23] MEDS: BABY ASPIRIN PO SCH (09:37)
[2018-08-23] MEDS: COLACE PO SCH ×2 (09:37→22:06)
[2018-08-23] MEDS: SODIUM CHLORIDE FLUSH SYRINGE 10 ML IV SCH ×2 (09:37→22:07)
--- NOTE | 2018-08-23 10:54 | Progress Note ---
Assessment and Plan Assessment and plan: Acute heart failure with preserved EF. Continue present management. No ACEI or ARB due to advanced renal failure. CXR on 08/19/18 showed no pulmonary edema or pneumonia. Continue hemodialysis per nephrology. Acute on Chronic kidney disease, stage 3: Serum creatinine 2.6 today and yesterday's was 3.5, UOP recorded is 600 ml ,24 hour urine collection done revealed creatinine clearance of 6 ml/min. Patient had Perm-catheter placed yesterday for hemodialysis initiation. Patient received first hemodialysis treatment yesterday and is scheduled to receive second treatment today. Secondary GN workup was negative. Renal ultrasound on 08/16/18- Chronic medical renal disease. No Hydronephrosis. No ACEI or ARB due to advanced renal failure. Renally dose all medications. Avoid Nephrotoxic agents. Strict I/O's monitoring Anasarca and scrotal edema. Elevated D-Dimer. VQ scan negative Hypertensive urgency: iv antihypertensives as needed, low salt diet DM type 2; ada and ssi HLD: treat with statins Malnutrition mild to moderate: counseling done, consulted Technician Support Engineer Right toe pressure ulcer, poa, at least stage 3, heel ulcers bilateral also: see admission photos, local wound care done, continue Wound care Morbid obese, bmi 51.3, 342 lbs: counseled on lifestyle modification and weight reduction History Interval history: Patient is a 58-year-old male with history of hypertension, diabetes, HLD, CKD stage III who presents to [facility] ED with c/o bilateral lower extremity swelling and shortness of breath. Pt scrotum is swollen obstructing view of his penis. Currently patient is on 2L supplemental O2 with saturation of 94%. D-dimer slightly elevated at 463.24. CK-MB elevated at 5.0; troponin negative. 2D ECHO conclusions Global LV systolic function is normal, estimated estimated EF is 55- 60%; abnormal LV diastolic dysfunction, mild to moderate concentric LV hypertrophy, trace mr, tr, RVSP calculated at 57 mmHg, No new issues overnight. Hospitalist Physical - Constitutional Vitals: Temp Pulse Resp BP Pulse Ox 98.0 F 75 18 136/56 95 08/23/18 07:37 08/23/18 07:37 08/23/18 07:37 08/23/18 07:37 08/23/18 07:37 General appearance: Present: no acute distress - EENT Eyes: Present: PERRL, EOM intact ENT: hearing intact, clear oral mucosa, dentition normal - Neck Neck: Present: supple, normal ROM - Respiratory Respiratory effort: normal Respiratory: bilateral: CTA - Cardiovascular Rhythm: regular Heart Sounds: Present: S1 & S2. Absent: gallop, rub - Extremities Extremities: no ischemia, No edema, Full ROM - Abdominal General gastrointestinal: soft, non-tender, non-distended, normal bowel sounds - Integumentary Integumentary: Present: clear, warm, dry - Neurologic Neurologic: CNII-XII intact, moves all extremities Results - Labs CBC & Chem 7: 08/23/18 05:09 08/23/18 05:09 Labs: Laboratory Last Values WBC 4.3 K/mm3 (4.5-11.0) L 08/23/18 05:09 RBC 3.60 M/mm3 (3.65-5.03) L 08/23/18 05:09 Hgb 9.6 gm/dl (11.8-15.2) L 08/23/18 05:09 Hct 29.6 % (35.5-45.6) L 08/23/18 05:09 MCV 82 fl (84-94) L 08/23/18 05:09 MCH 27 pg (28-32) L 08/23/18 05:09 MCHC 33 % (32-34) 08/23/18 05:09 RDW 16.6 % (13.2-15.2) H 08/23/18 05:09 Plt Count 134 K/mm3 (140-440) L 08/23/18 05:09 Lymph % (Auto) 26.6 % (13.4-35.0) 08/17/18 07:30 [place] % (Auto) Financial Reporting Advisor 08/23/18 05:09 Eos % (Auto) 6.6 % (0.0-4.3) H 08/17/18 07:30 Baso % (Auto) 1.1 % (0.0-1.8) 08/17/18 07:30 Lymph # 1.3 K/mm3 (1.2-5.4) 08/17/18 07:30 Churchill # 0.7 K/mm3 (0.0-0.8) 08/17/18 07:30 Eos # 0.3 K/mm3 (0.0-0.4) 08/17/18 07:30 Baso # 0.1 K/mm3 (0.0-0.1) 08/17/18 07:30 Add Manual Diff Complete 08/23/18 05:09 Total Counted 100 08/23/18 05:09 Seg Neutrophils % 51.7 % (40.0-70.0) 08/17/18 07:30 Seg Neuts % (Manual) 38.0 % (40.0-70.0) L 08/23/18 05:09 1.0 % 08/23/18 05:09 51.0 % (13.4-35.0) H 08/23/18 05:09 Reactive Lymphs % (Man) 0 % 08/23/18 05:09 8.0 % (0.0-7.3) H 08/23/18 05:09 2.0 % (0.0-4.3) 08/23/18 05:09 0 % (0.0-1.8) 08/23/18 05:09 0 % 08/23/18 05:09 0 % 08/23/18 05:09 0 % 08/23/18 05:09 0 % 08/23/18 05:09 Nucleated RBC % Not Reportable 08/23/18 05:09 Seg Neutrophils # 2.6 K/mm3 (1.8-7.7) 08/17/18 07:30 Seg Neutrophils # Man 1.6 K/mm3 (1.8-7.7) L 08/23/18 05:09 Band Neutrophils # 0.0 K/mm3 08/23/18 05:09 2.2 K/mm3 (1.2-5.4) 08/23/18 05:09 Abs React Lymphs (Man) 0.0 K/mm3 08/23/18 05:09 0.3 K/mm3 (0.0-0.8) 08/23/18 05:09 0.1 K/mm3 (0.0-0.4) 08/23/18 05:09 0.0 K/mm3 (0.0-0.1) 08/23/18 05:09 0.0 K/mm3 08/23/18 05:09 0.0 K/mm3 08/23/18 05:09 0.0 K/mm3 08/23/18 05:09 Blast Cells # 0.0 K/mm3 08/23/18 05:09 WBC Morphology Not Reportable 08/23/18 05:09 Hypersegmented Neuts Not Reportable 08/23/18 05:09 Hyposegmented Neuts Not Reportable 08/23/18 05:09 Hypogranular Neuts Not Reportable 08/23/18 05:09 Not Reportable 08/23/18 05:09 Not Reportable 08/23/18 05:09 Not Reportable 08/23/18 05:09 Not Reportable 08/23/18 05:09 Not Reportable 08/23/18 05:09 Not Reportable 08/23/18 05:09 Consistent w auto 08/23/18 05:09 Not Reportable 08/23/18 05:09 Plt Clumps, EDTA Not Reportable 08/23/18 05:09 Not Reportable 08/23/18 05:09 Not Reportable 08/23/18 05:09 Not Reportable 08/23/18 05:09 Plt Morphology Comment Not Reportable 08/23/18 05:09 RBC Morphology Not Reportable 08/23/18 05:09 Dimorphic RBCs Not Reportable 08/23/18 05:09 Not Reportable 08/23/18 05:09 Not Reportable 08/23/18 05:09 Not Reportable 08/23/18 05:09 1+ 08/23/18 05:09 Not Reportable 08/23/18 05:09 Not Reportable 08/23/18 05:09 Not Reportable 08/23/18 05:09 Not Reportable 08/23/18 05:09 Not Reportable 08/23/18 05:09 Not Reportable 08/23/18 05:09 Not Reportable 08/23/18 05:09 Not Reportable 08/23/18 05:09 Not Reportable 08/23/18 05:09 Not Reportable 08/23/18 05:09 Not Reportable 08/23/18 05:09 Not Reportable 08/23/18 05:09 Not Reportable 08/23/18 05:09 Not Reportable 08/23/18 05:09 1+ 08/23/18 05:09 Acanthocytes (Spur) Not Reportable 08/23/18 05:09 Rouleaux Not Reportable 08/23/18 05:09 Not Reportable 08/23/18 05:09 Not Reportable 08/23/18 05:09 Not Reportable 08/23/18 05:09 Not Reportable 08/23/18 05:09 Hem Pathologist Commnt No 08/23/18 05:09 463.24 ng/mlDDU (0-234) H 08/15/18 21:24 Sodium 137 mmol/L (137-145) 08/23/18 05:09 Potassium 4.7 mmol/L (3.6-5.0) 08/23/18 05:09 Chloride 98.9 mmol/L (98-107) 08/23/18 05:09 Carbon Dioxide 26 mmol/L (22-30) 08/23/18 05:09 17 mmol/L 08/23/18 05:09 BUN 45 mg/dL (9-20) H 08/23/18 05:09 2.6 mg/dL (0.8-1.5) H 08/23/18 05:09 Estimated GFR 26 ml/min 08/23/18 05:09 17 % 08/23/18 05:09 Glucose 174 mg/dL (75-100) H 08/23/18 05:09 POC Glucose 240 (70-105) H 08/23/18 07:44 7.4 % (4-6) H 08/16/18 03:37 Lactic Acid 0.70 mmol/L (0.7-2.0) 08/20/18 04:53 Calcium 8.8 mg/dL (8.4-10.2) 08/23/18 05:09 Phosphorus 4.30 mg/dL (2.5-4.5) 08/23/18 05:09 Iron 30 ug/dL (49-181) L 08/16/18 13:52 TIBC 352 mcg/dL (250-450) 08/16/18 13:52 78.2 ng/mL (13.0-400.0) 08/18/18 08:34 0.40 mg/dL (0.1-1.2) 08/15/18 18:54 AST 25 units/L (5-40) 08/15/18 18:54 ALT 15 units/L (7-56) 08/15/18 18:54 74 units/L (35-129) 08/15/18 18:54 340 units/L (55-170) H 08/15/18 21:24 CK-MB (CK-2) 5.0 ng/mL (0.0-4.0) H 08/15/18 21:24 CK-MB (CK-2) Rel Index 1.4 (0-4) 08/15/18 21:24 0.026 ng/mL (0.00-0.029) 08/15/18 21:24 NT-Pro-B Natriuret Pep 877.6 pg/mL (0-900) 08/17/18 11:13 6.1 g/dL (6.1-8.1) 08/17/18 11:13 6.7 g/dL (6.3-8.2) 08/15/18 18:54 2.9 g/dL (3.8-4.8) L 08/17/18 11:13 0.9 % 08/15/18 18:54 0.4 g/dL (0.2-0.3) H 08/17/18 11:13 0.7 g/dL (0.5-0.9) 08/17/18 11:13 0.5 g/dL (0.2-0.5) 08/17/18 11:13 1.1 g/dL (0.8-1.7) 08/17/18 11:13 Abnorm Protein Band 1 see below 08/17/18 11:13 PEP Interpretation see below H 08/17/18 11:13 Triglycerides 140 mg/dL (2-149) 08/16/18 03:37 Cholesterol 147 mg/dL (50-199) 08/16/18 03:37 88 mg/dL (50-130) 08/16/18 03:37 37 mg/dL (40-59) L 08/16/18 03:37 3.97 % 08/16/18 03:37 Straw (Yellow) 08/17/18 04:00 Clear (Clear) 08/17/18 04:00 7.0 (5.0-7.0) 08/17/18 04:00 Ur Specific [place] 1.006 (1.003-1.030) 08/17/18 04:00 100 mg/dl mg/dL (Negative) 08/17/18 04:00 Neg mg/dL (Negative) 08/17/18 04:00 Neg mg/dL (Negative) 08/17/18 04:00 Neg (Negative) 08/17/18 04:00 Neg (Negative) 08/17/18 04:00 Neg (Negative) 08/17/18 04:00 < 2.0 mg/dL (<2.0) 08/17/18 04:00 Ur Leukocyte Esterase Neg (Negative) 08/17/18 04:00 < 1.0 /HPF (0.0-6.0) 08/17/18 04:00 2.0 /HPF (0.0-6.0) 08/17/18 04:00 U Epithel Cells (Auto) 1.0 /HPF (0-13.0) 08/15/18 18:47 1+ /HPF (Negative) 08/17/18 04:00 Few /HPF 08/15/18 18:47 None seen (None Seen) 08/17/18 04:00 800 ml 08/20/18 12:09 56.1 mg/dL (0.1-20.0) H 08/20/18 12:09 Height (in) 68.0 inches 08/20/18 12:09 Weight (lb) 348.8 lbs 08/20/18 12:09 6 08/20/18 12:09 Protein/Creatinin Ratio 3.53 08/17/18 04:00 132 mmol/L 08/17/18 04:00 106 08/17/18 04:00 79 mg/dL (5-11.8) H 08/17/18 04:00 Immunofix Electrophor see below 08/17/18 11:13 JELANI Screen Negative (Negative) 08/17/18 11:13 Double Strand DNA Ab <1 IU/mL (<=4) 08/17/18 11:13 144 mg/dL (82-185) 08/17/18 11:13 23 mg/dL (15-53) 08/17/18 11:13 RPR Nonreactive (Nonreactive) 08/17/18 11:13 Hepatitis A IgM Ab Non-reactive (NonReactive) 08/17/18 11:13 Hep Bs Antigen Non-reactive (Negative) 08/17/18 11:13 Hep B Core IgM Ab Non-reactive (NonReactive) 08/17/18 11:13 Non-reactive (NonReactive) 08/17/18 11:13 HIV 1&2 Antibody Rapid Non react (Non React) 08/17/18 11:13 Non react (Non React) 08/17/18 11:13 Active Medications - Current Medications Current Medications: Generic Name Dose Route Start Last Admin Trade Name Freq PRN Reason Stop Dose Admin Acetaminophen 650 mg 08/16/18 03:07 08/21/18 21:55 Tylenol PO 650 mg Q4H PRN Administration Pain MILD(1-3)/Fever >100.5/FRAIRE Albuterol 2.5 mg 08/16/18 03:07 Proventil IH Q4HRT PRN Shortness Of Breath Aspirin 81 mg 08/16/18 10:00 08/23/18 09:37 Baby Aspirin PO 81 mg QDAY ARLENE Administration Atorvastatin Calcium 40 mg 08/16/18 22:00 08/22/18 21:57 Lipitor PO 40 mg QHS ARLENE Administration Carvedilol 6.25 mg 08/17/18 12:00 08/22/18 21:57 Coreg PO 6.25 mg BID ARLENE Administration Cholecalciferol 5,000 unit 08/16/18 10:00 08/23/18 09:36 Vitamin D3 PO 5,000 unit DAILY ARLENE Administration Dextrose 50 ml 08/16/18 03:13 D50w (25gm) Syringe IV PRN PRN Hypoglycemia Docusate Sodium 100 mg 08/16/18 10:00 08/23/18 09:37 Colace PO 100 mg BID ARLENE Administration Epoetin [place] 10,000 unit 08/18/18 13:00 08/22/18 18:19 Procrit SUB-Q 10,000 unit MOWEFR ARLENE Administration Gabapentin 300 mg 08/16/18 22:00 08/22/18 21:57 Neurontin PO 300 mg QHS ARLENE Administration Heparin Sodium (Porcine) 5,000 unit 08/16/18 10:00 08/22/18 21:58 Heparin SUB-Q 5,000 unit Q12HR ARLENE Administration Hydralazine HCl 50 mg 08/16/18 14:00 08/23/18 05:43 Apresoline PO 50 mg Q8HR ARLENE Administration Ceftriaxone Sodium 1 gm in 50 mls @ 100 mls/hr 08/18/18 15:00 08/22/18 09:10 Rocephin/Ns 1 Gm/50 Ml IV 100 mls/hr Q24HR ARLENE Administration Protocol Insulin Human Lispro 0 unit 08/16/18 07:30 08/23/18 08:04 Humalog SUB-Q 3 unit ACHS ARLENE Administration Protocol Insulin Human Regular 5 units 08/16/18 07:30 08/23/18 08:03 Humulin R SUB-Q 5 units AC ARLENE Administration Nitroglycerin 0.4 mg 08/16/18 03:07 Nitrostat SL .Q5MIN PRN Chest Pain Ondansetron HCl 4 mg 08/16/18 03:07 08/16/18 16:39 Zofran IV 4 mg Q8H PRN Administration Nausea And Vomiting Oxycodone/Acetaminophen 1 tab 08/16/18 03:07 08/22/18 23:48 Percocet 5/325 PO 1 tab Q6H PRN Administration Pain, Moderate (4-6) Sodium Chloride 10 ml 08/16/18 10:00 08/23/18 09:37 Sodium Chloride Flush Syringe 10 Ml IV 10 ml BID ARLENE Administration Sodium Chloride 10 ml 08/16/18 03:07 08/16/18 06:17 Sodium Chloride Flush Syringe 10 Ml IV 10 ml PRN PRN Administration LINE FLUSH Nutrition/Malnutrition Assess - Dietary Evaluation Nutrition/Malnutrition Findings: Nutrition Notes Start: 08/16/18 09:25 Freq: Status: Active Protocol: Document 08/19/18 14:48 GHASSAN (Rec: 08/19/18 14:54 GHASSAN [email or web address]) Nutrition Notes Initial or Follow up Brief Note Current Diagnosis CKD(stage I-IV),Diabetes Other Pertinent Diagnosis Fluid retention in scrotum and BLE edema, wounds on toe, heel and leg Current Diet Cardiac/consistent CHO Labs/Tests Na 134 BUN 55 Cr 4.4 Pertinent Medications Reviewed [place] Body Weight (kg) 0 Subjective/Other Information Pt reports good appetite; has been consuming 75-100% of meals. Nutrition Intervention Revisit per MD consult or patient Sign Off request:
--- NOTE | 2018-08-23 11:48 | Progress Note ---
Assessment and Plan on hd cpm form a cardiac perspective - Patient Problems (1) Anasarca Current Visit: Yes Status: Acute (2) CKD (chronic kidney disease) Current Visit: Yes Status: Acute Qualifiers: Chronic kidney disease stage: stage 3 (moderate) Qualified Code(s): N18.3 - Chronic kidney disease, stage 3 (moderate) (3) Elevated d-dimer Current Visit: Yes Status: Acute (4) Sleep apnea with use of continuous positive airway pressure (CPAP) Current Visit: Yes Status: Acute (5) Essential hypertension Current Visit: Yes Status: Chronic (6) Hyperlipemia, mixed Current Visit: Yes Status: Chronic (7) Morbid obesity Current Visit: Yes Status: Chronic Subjective Date of service: 08/23/18 Principal diagnosis: CHF; CKD;; HANSEN; Elevated d-dimer; Essential HTN; Morbid obesity; MARBELLA Interval history: no complaints, at hd Objective Vital Signs Temp Pulse Resp Resp BP Pulse Ox 08/23/18 11:00 79 147/72 08/23/18 10:45 79 125/51 08/23/18 10:30 78 128/61 08/23/18 10:15 98.0 F 74 18 140/73 08/23/18 07:37 98.0 F 75 18 136/56 95 08/23/18 05:43 61 139/66 08/23/18 05:07 97.6 F 61 20 139/66 90 08/23/18 01:14 78 19 96 08/23/18 00:48 18 08/22/18 23:53 97.8 F 69 20 134/71 94 08/22/18 23:48 20 08/22/18 22:12 20 08/22/18 22:00 98 08/22/18 21:57 73 153/64 08/22/18 21:00 20 99 08/22/18 20:46 71 08/22/18 20:25 98.2 F 73 20 153/64 91 08/22/18 19:00 98.0 F 76 18 154/70 08/22/18 18:30 74 142/69 08/22/18 18:15 74 128/61 08/22/18 18:00 75 134/66 08/22/18 17:45 76 134/64 08/22/18 17:30 75 131/60 08/22/18 17:15 76 127/61 08/22/18 17:00 71 142/80 08/22/18 16:45 78 139/50 08/22/18 16:30 71 127/56 08/22/18 16:20 98.2 F 65 18 147/78 - Physical Examination General: Appears Well HEENT: Positive: PERRL, Mucus Membranes Moist Neck: Positive: neck supple, trachea midline Neuro: Positive: Grossly Intact Abdomen: Positive: Soft, Active Bowel Sounds. Negative: Tender, Distended Skin: Positive: Clear Incision: Cardiac Cath Site Musculoskeletal: No Pain, Normal Range of Motion Extremities: Present: normal, edema, +1 Edema, Other (scrotal edema) - Labs and Meds CBC 08/23/18 Range/Units 05:09 WBC 4.3 L (4.5-11.0) K/mm3 RBC 3.60 L (3.65-5.03) M/mm3 Hgb 9.6 L (11.8-15.2) gm/dl Hct 29.6 L (35.5-45.6) % Plt Count 134 L (140-440) K/mm3 Comprehensive Metabolic Panel 08/23/18 Range/Units 05:09 Sodium 137 (137-145) mmol/L Potassium 4.7 (3.6-5.0) mmol/L Chloride 98.9 (98-107) mmol/L Carbon Dioxide 26 (22-30) mmol/L BUN 45 H (9-20) mg/dL Creatinine 2.6 H (0.8-1.5) mg/dL Glucose 174 H (75-100) mg/dL Calcium 8.8 (8.4-10.2) mg/dL - Imaging and Cardiology EKG: image reviewed (sinus rhythm at 76 bpm) Echo: report reviewed (2015 normal LV function.Positive bubble study PFO), other (08/17/2018 normal LV function and diastolic dysfunction mild to moderate LVH no significant regurgitations)
[2018-08-23] MEDS ORDERED: NACL 0.9 (PRIMING MACHINE ONLY DIALYSIS) MC ONE (11:53)
--- NOTE | 2018-08-23 14:15 | Progress Note ---
Assessment and Plan CHF (congestive heart failure) CKD (chronic kidney disease) HANSEN (dyspnea on exertion) Elevated d-dimer Essential hypertension Morbid obesity Sleep apnea with use of continuous positive airway pressure (CPAP) - continue supplemental oxygen as needed to keep O2 sats > 90% - continue bronchodilators with pulmonary hygiene per RT - continue HD/UF for toxin and volume clearance - suspect deconditioning playing a major role in HANSEN; continue PT/OT as tolerated - continue BIPAP therapy qhs re: MARBELLA/OHS - weight loss counseled - VQ scan and lower extremity dopplers normal; no further VTE w/up - continue chronic disease meds per attending - neurology evaluation ongoing - GI & VTE prophylaxis - Flu & pneumovax per protocol - outpatient pulmonary clinic f/up .. re-evaluate in am & prn Subjective Date of service: 08/23/18 Principal diagnosis: CHF; CKD;; HANSEN; Elevated d-dimer; Essential HTN; Morbid obesity; MARBELLA Interval history: Patient is seen today for: CHF (congestive heart failure); CKD (chronic kidney disease); HANSEN (dyspnea on exertion); Elevated d-dimer; Essential hypertension; Morbid obesity; Sleep apnea with use of continuous positive airway pressure (CPAP) Seen and examined at bedside; 24hour events reviewed; nursing and respiratory care staff consulted; no adverse overnight events reported to me; for HD/UF today and hopefully can get some fluid pulled; denies acute chest pains or palpitations but still SOB Objective Vital Signs - 12hr 08/23/18 08/23/18 08/23/18 05:07 05:43 07:37 Temperature 97.6 F 98.0 F Pulse Rate 61 61 75 Respiratory 20 18 Rate Blood Pressure 139/66 139/66 136/56 O2 Sat by Pulse 90 95 Oximetry 08/23/18 08/23/18 08/23/18 10:15 10:30 10:45 Temperature 98.0 F Pulse Rate 74 78 79 Respiratory 18 Rate Blood Pressure 140/73 128/61 125/51 O2 Sat by Pulse Oximetry 08/23/18 08/23/18 08/23/18 11:00 11:15 11:30 Temperature Pulse Rate 79 78 81 Respiratory Rate Blood Pressure 147/72 134/65 139/67 O2 Sat by Pulse Oximetry 08/23/18 08/23/18 08/23/18 11:45 12:00 12:15 Temperature Pulse Rate 81 80 81 Respiratory Rate Blood Pressure 127/43 125/65 134/58 O2 Sat by Pulse Oximetry 08/23/18 08/23/18 08/23/18 12:30 12:45 13:00 Temperature Pulse Rate 79 78 78 Respiratory Rate Blood Pressure 124/52 122/54 122/55 O2 Sat by Pulse Oximetry 08/23/18 08/23/18 13:15 13:20 Temperature 98.0 F Pulse Rate 78 79 Respiratory 18 Rate Blood Pressure 140/73 135/76 O2 Sat by Pulse Oximetry Constitutional: no acute distress, alert, other (Morbidly Obese middle aged CM) Eyes: non-icteric ENT: oropharynx moist, other (mallampati 4) Neck: supple, no JVD, other (large neck circumference) Effort: mildly labored Ascultation: Bilateral: diminished breath sounds, rhonchi (scant in bases) Percussion: Bilateral: not dull Cardiovascular: regular rate and rhythm Gastrointestinal: normoactive bowel sounds, soft, non-tender, other (protuberant) Integumentary: cellulitis, other (Cellulitis and wounds in both lower legs.) Extremities: no cyanosis, pink and warm, pulses normal, edema (trace to 1+) Neurologic: normal mental status, non-focal exam, pupils equal and round, CN II- XII normal Psychiatric: mood appropriate, affect normal CBC and BMP: 08/23/18 05:09 08/24/18 05:09 ABG, PT/INR, D-dimer: PT/INR, D-dimer 463.24 ng/mlDDU (0-234) H 08/15/18 21:24 Abnormal lab findings: Abnormal Labs 08/15/18 08/15/18 08/15/18 18:02 18:54 18:54 WBC RBC 3.61 L Hgb 9.8 L Hct 30.1 L MCV MCH 27 L RDW 16.8 H Plt Count [place] % (Auto) 10.7 H Eos % (Auto) 5.9 H Seg Neuts % (Manual) Lymphocytes % (Manual) Monocytes % (Manual) Eosinophils % (Manual) Basophils % (Manual) Seg Neutrophils # Man D-Dimer Sodium Chloride 107.7 H BUN 25 H Creatinine 2.5 H Glucose 159 H POC Glucose 124 H Hemoglobin A1c Phosphorus Iron Total Creatine Kinase CK-MB (CK-2) Albumin 3.2 L Gzmmq-7-Ugytzfjba PEP Interpretation HDL Cholesterol Urine Creatinine Urine Total Protein 08/15/18 08/15/18 08/16/18 21:24 21:24 03:37 WBC RBC Hgb Hct MCV MCH RDW Plt Count [place] % (Auto) Eos % (Auto) Seg Neuts % (Manual) Lymphocytes % (Manual) Monocytes % (Manual) Eosinophils % (Manual) Basophils % (Manual) Seg Neutrophils # Sadi D-Dimer 463.24 H Sodium Chloride BUN Creatinine Glucose POC Glucose Hemoglobin A1c 7.4 H Phosphorus Iron Total Creatine Kinase 340 H CK-MB (CK-2) 5.0 H Albumin Skjny-2-Qjhegztbn PEP Interpretation HDL Cholesterol Urine Creatinine Urine Total Protein 08/16/18 08/16/18 08/16/18 03:37 07:54 12:01 WBC RBC Hgb Hct MCV MCH RDW Plt Count [place] % (Auto) Eos % (Auto) Seg Neuts % (Manual) Lymphocytes % (Manual) Monocytes % (Manual) Eosinophils % (Manual) Basophils % (Manual) Seg Neutrophils # Sadi D-Dimer Sodium Chloride BUN Creatinine Glucose POC Glucose 113 H 179 H Hemoglobin A1c Phosphorus Iron Total Creatine Kinase CK-MB (CK-2) Albumin Tblgj-0-Crbtajmxk PEP Interpretation HDL Cholesterol 37 L Urine Creatinine Urine Total Protein 08/16/18 08/16/18 08/16/18 13:52 17:44 21:21 WBC RBC Hgb Hct MCV MCH RDW Plt Count [place] % (Auto) Eos % (Auto) Seg Neuts % (Manual) Lymphocytes % (Manual) Monocytes % (Manual) Eosinophils % (Manual) Basophils % (Manual) Seg Neutrophils # Sadi D-Dimer Sodium Chloride BUN Creatinine Glucose POC Glucose 221 H 165 H Hemoglobin A1c Phosphorus Iron 30 L Total Creatine Kinase CK-MB (CK-2) Albumin Fgotz-7-Ctzbrymdc PEP Interpretation HDL Cholesterol Urine Creatinine Urine Total Protein 08/17/18 08/17/18 08/17/18 04:00 07:30 07:30 WBC RBC Hgb 10.3 L Hct 31.5 L MCV 82 L MCH 27 L RDW 16.8 H Plt Count [place] % (Auto) 14.0 H Eos % (Auto) 6.6 H Seg Neuts % (Manual) Lymphocytes % (Manual) Monocytes % (Manual) Eosinophils % (Manual) Basophils % (Manual) Seg Neutrophils # Sadi D-Dimer Sodium Chloride BUN 32 H Creatinine 2.9 H Glucose 180 H POC Glucose Hemoglobin A1c Phosphorus Iron Total Creatine Kinase CK-MB (CK-2) Albumin Pltmd-7-Debhgsljy PEP Interpretation HDL Cholesterol Urine Creatinine 22.4 H Urine Total Protein 79 H 08/17/18 08/17/18 08/17/18 07:34 11:13 12:17 WBC RBC Hgb Hct MCV MCH RDW Plt Count [place] % (Auto) Eos % (Auto) Seg Neuts % (Manual) Lymphocytes % (Manual) Monocytes % (Manual) Eosinophils % (Manual) Basophils % (Manual) Seg Neutrophils # Sadi D-Dimer Sodium Chloride BUN Creatinine Glucose POC Glucose 169 H 207 H Hemoglobin A1c Phosphorus Iron Total Creatine Kinase CK-MB (CK-2) Albumin 2.9 L Zfuik-5-Zlbwsiydx 0.4 H PEP Interpretation see below H HDL Cholesterol Urine Creatinine Urine Total Protein 08/17/18 08/17/18 08/18/18 16:36 21:17 07:05 WBC RBC Hgb Hct MCV MCH RDW Plt Count [place] % (Auto) Eos % (Auto) Seg Neuts % (Manual) Lymphocytes % (Manual) Monocytes % (Manual) Eosinophils % (Manual) Basophils % (Manual) Seg Neutrophils # Sadi D-Natalya Sodium 134 L Chloride 95.9 L BUN 43 H Creatinine 3.8 H Glucose 150 H POC Glucose 184 H 209 H Hemoglobin A1c Phosphorus Iron Total Creatine Kinase CK-MB (CK-2) Albumin Iofye-8-Gbxyyodqt PEP Interpretation HDL Cholesterol Urine Creatinine Urine Total Protein 08/18/18 08/18/18 08/18/18 07:53 08:34 11:53 WBC RBC Hgb 10.8 L Hct 33.8 L MCV MCH 27 L RDW 16.3 H Plt Count [place] % (Auto) Eos % (Auto) Seg Neuts % (Manual) Lymphocytes % (Manual) Monocytes % (Manual) Eosinophils % (Manual) Basophils % (Manual) Seg Neutrophils # Sadi D-Dimer Sodium Chloride BUN Creatinine Glucose POC Glucose 139 H 191 H Hemoglobin A1c Phosphorus Iron Total Creatine Kinase CK-MB (CK-2) Albumin Gqgfo-5-Suilerpgn PEP Interpretation HDL Cholesterol Urine Creatinine Urine Total Protein 08/18/18 08/18/18 08/19/18 15:54 20:49 05:28 WBC RBC Hgb 9.7 L Hct 30.1 L MCV 82 L MCH 26 L RDW 16.6 H Plt Count 136 L [place] % (Auto) Eos % (Auto) Seg Neuts % (Manual) Lymphocytes % (Manual) Monocytes % (Manual) Eosinophils % (Manual) Basophils % (Manual) Seg Neutrophils # Sadi D-Dimer Sodium Chloride BUN Creatinine Glucose POC Glucose 150 H 138 H Hemoglobin A1c Phosphorus Iron Total Creatine Kinase CK-MB (CK-2) Albumin Phynx-3-Nbkdrrdwb PEP Interpretation HDL Cholesterol Urine Creatinine Urine Total Protein 08/19/18 08/19/18 08/19/18 05:28 07:43 11:57 WBC RBC Hgb Hct MCV MCH RDW Plt Count [place] % (Auto) Eos % (Auto) Seg Neuts % (Manual) Lymphocytes % (Manual) Monocytes % (Manual) Eosinophils % (Manual) Basophils % (Manual) Seg Neutrophils # Sadi D-Dimer Sodium 134 L Chloride 96.2 L BUN 55 H Creatinine 4.4 H Glucose 118 H POC Glucose 162 H 280 H Hemoglobin A1c Phosphorus Iron Total Creatine Kinase CK-MB (CK-2) Albumin Omqwc-3-Rfdgvuiwe PEP Interpretation HDL Cholesterol Urine Creatinine Urine Total Protein 08/19/18 08/19/18 08/20/18 15:41 21:44 04:53 WBC 3.5 L RBC 3.58 L Hgb 9.4 L Hct 29.5 L MCV 83 L MCH 26 L RDW 16.4 H Plt Count 121 L [place] % (Auto) Eos % (Auto) Seg Neuts % (Manual) Lymphocytes % (Manual) Monocytes % (Manual) 16.0 H Eosinophils % (Manual) Basophils % (Manual) 3.0 H Seg Neutrophils # Sadi 1.6 L D-Dimer Sodium Chloride BUN Creatinine Glucose POC Glucose 167 H 234 H Hemoglobin A1c Phosphorus Iron Total Creatine Kinase CK-MB (CK-2) Albumin Wdpci-8-Uutgjpnhj PEP Interpretation HDL Cholesterol Urine Creatinine Urine Total Protein 08/20/18 08/20/18 08/20/18 04:53 08:13 12:09 WBC RBC Hgb Hct MCV MCH RDW Plt Count [place] % (Auto) Eos % (Auto) Seg Neuts % (Manual) Lymphocytes % (Manual) Monocytes % (Manual) Eosinophils % (Manual) Basophils % (Manual) Seg Neutrophils # Sadi D-Dimer Sodium 136 L Chloride BUN 57 H Creatinine 3.3 H Glucose 136 H POC Glucose 124 H Hemoglobin A1c Phosphorus 5.50 H Iron Total Creatine Kinase CK-MB (CK-2) Albumin Eqnis-9-Hciontlfp PEP Interpretation HDL Cholesterol Urine Creatinine 56.1 H Urine Total Protein 08/20/18 08/20/18 08/20/18 12:49 18:26 20:53 WBC RBC Hgb Hct MCV MCH RDW Plt Count [place] % (Auto) Eos % (Auto) Seg Neuts % (Manual) Lymphocytes % (Manual) Monocytes % (Manual) Eosinophils % (Manual) Basophils % (Manual) Seg Neutrophils # Man D-Dimer Sodium Chloride BUN Creatinine Glucose POC Glucose 145 H 175 H 184 H Hemoglobin A1c Phosphorus Iron Total Creatine Kinase CK-MB (CK-2) Albumin Fapjf-4-Jnmfcgtnx PEP Interpretation HDL Cholesterol Urine Creatinine Urine Total Protein 08/21/18 08/21/18 08/21/18 04:28 04:28 08:58 WBC 3.8 L RBC 3.42 L Hgb 9.2 L Hct 28.4 L MCV 83 L MCH 27 L RDW 16.4 H Plt Count 126 L [place] % (Auto) Eos % (Auto) Seg Neuts % (Manual) Lymphocytes % (Manual) Monocytes % (Manual) 15.0 H Eosinophils % (Manual) Basophils % (Manual) Seg Neutrophils # Man D-Dimer Sodium 134 L Chloride 96.5 L BUN 59 H Creatinine 3.4 H Glucose 190 H POC Glucose 159 H Hemoglobin A1c Phosphorus 5.10 H Iron Total Creatine Kinase CK-MB (CK-2) Albumin Aauaq-8-Xyzptbmlb PEP Interpretation HDL Cholesterol Urine Creatinine Urine Total Protein 08/21/18 08/21/18 08/21/18 12:25 17:10 21:43 WBC RBC Hgb Hct MCV MCH RDW Plt Count [place] % (Auto) Eos % (Auto) Seg Neuts % (Manual) Lymphocytes % (Manual) Monocytes % (Manual) Eosinophils % (Manual) Basophils % (Manual) Seg Neutrophils # Man D-Dimer Sodium Chloride BUN Creatinine Glucose POC Glucose 222 H 152 H 150 H Hemoglobin A1c Phosphorus Iron Total Creatine Kinase CK-MB (CK-2) Albumin Tkwmo-8-Ocldiurgo PEP Interpretation HDL Cholesterol Urine Creatinine Urine Total Protein 08/22/18 08/22/18 08/22/18 04:50 04:51 08:08 WBC 3.7 L RBC 3.37 L Hgb 9.0 L Hct 27.8 L MCV 83 L MCH 27 L RDW 16.9 H Plt Count 124 L [place] % (Auto) Eos % (Auto) Seg Neuts % (Manual) Lymphocytes % (Manual) Monocytes % (Manual) 13.0 H Eosinophils % (Manual) 11.0 H Basophils % (Manual) Seg Neutrophils # Man 1.6 L D-Dimer Sodium 135 L Chloride 97.4 L BUN 64 H Creatinine 3.5 H Glucose 114 H POC Glucose 117 H Hemoglobin A1c Phosphorus 4.90 H Iron Total Creatine Kinase CK-MB (CK-2) Albumin Ntcie-1-Ffoerpcdg PEP Interpretation HDL Cholesterol Urine Creatinine Urine Total Protein 08/22/18 08/22/18 08/23/18 14:48 21:36 05:09 WBC 4.3 L RBC 3.60 L Hgb 9.6 L Hct 29.6 L MCV 82 L MCH 27 L RDW 16.6 H Plt Count 134 L [place] % (Auto) Eos % (Auto) Seg Neuts % (Manual) 38.0 L Lymphocytes % (Manual) 51.0 H Monocytes % (Manual) 8.0 H Eosinophils % (Manual) Basophils % (Manual) Seg Neutrophils # Man 1.6 L D-Dimer Sodium Chloride BUN Creatinine Glucose POC Glucose 211 H 268 H Hemoglobin A1c Phosphorus Iron Total Creatine Kinase CK-MB (CK-2) Albumin Cbxtt-1-Jccxvqcda PEP Interpretation HDL Cholesterol Urine Creatinine Urine Total Protein 08/23/18 08/23/18 08/23/18 05:09 07:44 14:02 WBC RBC Hgb Hct MCV MCH RDW Plt Count [place] % (Auto) Eos % (Auto) Seg Neuts % (Manual) Lymphocytes % (Manual) Monocytes % (Manual) Eosinophils % (Manual) Basophils % (Manual) Seg Neutrophils # Man D-Dimer Sodium Chloride BUN 45 H Creatinine 2.6 H Glucose 174 H POC Glucose 240 H 161 H Hemoglobin A1c Phosphorus Iron Total Creatine Kinase CK-MB (CK-2) Albumin Wnine-8-Ccypzunbr PEP Interpretation HDL Cholesterol Urine Creatinine Urine Total Protein Chest x-ray: pending (repeat in 48 hours) Allied health notes reviewed: nursing
[2018-08-23] MEDS: ROCEPHIN/NS 1 GM/50 ML 1 GM/50 ML BAG IV SCH (14:35)
[2018-08-23] MEDS: HEPARIN SUB-Q SCH ×2 (14:36→22:05)
[2018-08-23] MEDS: COREG PO SCH ×2 (14:36→22:06)
[2018-08-23] MEDS: NEURONTIN PO SCH (22:05)
[2018-08-23] MEDS: PERCOCET 5/325 PO PRN (22:06)
[2018-08-24] MEDS: APRESOLINE PO SCH ×3 (06:23→21:07)
[2018-08-24 06:28] LABS: Calcium 8.4 mg/dL (8.4-10.2)
--- NOTE | 2018-08-24 08:45 | Progress Note ---
Assessment and Plan Acute kidney injury possibly ATN from Nephrotic range proteinuria, Cardiorenal syndrome on CKD, now dialysis dependent indefinitely: Severe renal failure, possible progression CKD, dialysis dependent: -Renal function reviewed. Serum creatinine 2.3 today. S/P 2 hemodialysis treatments. -First hemodialysis treatment was on 08/22/18 and second was yesterday on 08/23/18 -Will monitor renal function off hemodialysis today, but may be dependent on hemodialysis indefinitely for ultrafiltration -Recheck BMP levels in a.m -Secondary GN workup was negative -Renal ultrasound on 08/16/18- Chronic medical renal disease. No Hydronephrosis. -No ACEI or ARB due to advanced renal failure -Renally dose all medications -Avoid Nephrotoxic agents -Strict I/O's monitoring -Mckeon Catheter: None present -Will monitor for renal recovery Congestive Diastolic heart failure -Echo- LVEF is 55-60% -S/P IV Lasix -UF with HD -Cardiology onboard Anemia of chronic disease due to CKD: -On Epogen 10,000 units SQ every M,W,F -Monitor H/H Essential Hypertension: - Continue on current regimen - Adjust medications as needed Diabetes Mellitus type 2 on insulin: -On insulin as per primary team Subjective Date of service: 08/24/18 Principal diagnosis: CHF; CKD;; HANSEN; Elevated d-dimer; Essential HTN; Morbid obesity; MARBELLA Interval history: Patient seen sitting up in chair eating breakfast. States his breathing is better and his legs are feeling a little better as well. No family at bedside. Objective - Vital Signs Vital signs: Vital Signs - 12hr 08/23/18 08/23/18 08/23/18 21:00 22:00 22:06 Temperature Pulse Rate 73 Respiratory 20 20 Rate Respiratory Rate [denies] Blood Pressure 163/66 O2 Sat by Pulse 97 98 Oximetry 08/23/18 08/23/18 08/23/18 22:08 22:10 23:06 Temperature Pulse Rate 77 Respiratory 18 20 Rate Respiratory 20 Rate [denies] Blood Pressure O2 Sat by Pulse 96 Oximetry 08/24/18 08/24/18 08/24/18 00:19 01:38 04:36 Temperature 98.4 F 98.1 F Pulse Rate 73 75 68 Respiratory 18 16 18 Rate Respiratory Rate [denies] Blood Pressure 170/79 146/77 O2 Sat by Pulse 95 96 95 Oximetry 08/24/18 08/24/18 08/24/18 05:34 06:23 07:41 Temperature 98.4 F Pulse Rate 74 68 69 Respiratory 18 18 Rate Respiratory Rate [denies] Blood Pressure 146/77 136/62 O2 Sat by Pulse 98 96 Oximetry - General Appearance General appearance: well-developed, appears stated age, obese, fatigue EENT: ATNC, PERRL, hearing intact, vision intact Neck: no JVD, supple, other (Has right IJ perm-catheter) Respiratory: Present: Decreased Breath Sounds Cardiology: S1S2 Gastrointestinal: normoactive bowel sounds, obese Integumentary: chronic venous stasis Neurologic: alert and oriented x3 Musculoskeletal: joint swelling, other (2+ edema to BLE) - Lab 08/23/18 05:09 08/24/18 05:09 Most recent lab results Calcium 8.4 mg/dL (8.4-10.2) 08/24/18 05:09 Phosphorus 3.80 mg/dL (2.5-4.5) 08/24/18 05:09 56.1 mg/dL (0.1-20.0) H 08/20/18 12:09 132 mmol/L 08/17/18 04:00 79 mg/dL (5-11.8) H 08/17/18 04:00 Medications & Allergies - Medications Allergies/Adverse Reactions: Allergies canagliflozin [From Invokana] Allergy (Verified 08/15/18 17:49) Unknown IV CONTRAST DYE Allergy (Uncoded 08/15/18 17:49) Unknown Home Medications: Home Medications Medication Instructions Recorded Confirmed Last Taken Type Acetaminophen [Acetaminophen ER] 650 mg PO Q8HR PRN 08/16/18 08/16/18 Unknown History Amlodipine Besylate/Benazepril 1 each PO QDAY 08/16/18 08/16/18 Unknown History [Lotrel 10-40 mg] AtorvaSTATin [Lipitor] 40 mg PO QHS 08/16/18 08/16/18 Unknown History Cholecalciferol (Vitamin D3) 5,000 unit PO DAILY 08/16/18 08/16/18 Unknown History [Vitamin D3 5,000 UNIT] Doxylamine Succinate [Unisom] 25 mg PO QHS 08/16/18 08/16/18 Unknown History Gabapentin [Neurontin] 300 mg PO QHS 08/16/18 08/16/18 Unknown History Insulin Regular, Human [Humulin R 90 unit SQ BID 08/16/18 08/16/18 Unknown History U-500 Kwikpen] Loratadine [Claritin] 10 mg PO DAILY PRN 08/16/18 08/16/18 Unknown History Melatonin [Melatonin 3MG TAB] 3 mg PO QHS 08/16/18 08/16/18 Unknown History Niacin [Niacor] 500 mg PO DAILY 08/16/18 08/16/18 Unknown History Omeprazole 20 mg PO DAILY PRN 08/16/18 08/16/18 Unknown History Triamcinolone Acetonide [Nasacort 10.8 ml NS DAILY 08/16/18 08/16/18 Unknown History SPRAY] Active Medications: Generic Name Dose Route Start Last Admin Trade Name Freq PRN Reason Stop Dose Admin Acetaminophen 650 mg 08/16/18 03:07 08/21/18 21:55 Tylenol PO 650 mg Q4H PRN Administration Pain MILD(1-3)/Fever >100.5/FRAIRE Albuterol 2.5 mg 08/16/18 03:07 Proventil IH Q4HRT PRN Shortness Of Breath Aspirin 81 mg 08/16/18 10:00 08/23/18 09:37 Baby Aspirin PO 81 mg QDAY ARLENE Administration Atorvastatin Calcium 40 mg 08/16/18 22:00 08/23/18 22:07 Lipitor PO 40 mg QHS ARLENE Administration Carvedilol 6.25 mg 08/17/18 12:00 08/23/18 22:06 Coreg PO 6.25 mg BID ARLENE Administration Cholecalciferol 5,000 unit 08/16/18 10:00 08/23/18 09:36 Vitamin D3 PO 5,000 unit DAILY ARLENE Administration Dextrose 50 ml 08/16/18 03:13 D50w (25gm) Syringe IV PRN PRN Hypoglycemia Docusate Sodium 100 mg 08/16/18 10:00 08/23/18 22:06 Colace PO 100 mg BID ARLENE Administration Epoetin [place] 10,000 unit 08/18/18 13:00 08/22/18 18:19 Procrit SUB-Q 10,000 unit MOWEFR ARLENE Administration Gabapentin 300 mg 08/16/18 22:00 08/23/18 22:05 Neurontin PO 300 mg QHS ARLENE Administration Heparin Sodium (Porcine) 5,000 unit 08/16/18 10:00 08/23/18 22:05 Heparin SUB-Q 5,000 unit Q12HR ARLENE Administration Hydralazine HCl 50 mg 08/16/18 14:00 08/24/18 06:23 Apresoline PO 50 mg Q8HR ARLENE Administration Ceftriaxone Sodium 1 gm in 50 mls @ 100 mls/hr 08/18/18 15:00 08/23/18 14:35 Rocephin/Ns 1 Gm/50 Ml IV 100 mls/hr Q24HR ARLENE Administration Protocol Insulin Human Lispro 0 unit 08/16/18 07:30 08/23/18 22:07 Humalog SUB-Q 3 unit ACHS ARLENE Administration Protocol Insulin Human Regular 5 units 08/16/18 07:30 08/23/18 18:25 Humulin R SUB-Q 5 units AC ARLENE Administration Nitroglycerin 0.4 mg 08/16/18 03:07 Nitrostat SL .Q5MIN PRN Chest Pain Ondansetron HCl 4 mg 08/16/18 03:07 08/16/18 16:39 Zofran IV 4 mg Q8H PRN Administration Nausea And Vomiting Oxycodone/Acetaminophen 1 tab 08/16/18 03:07 08/23/18 22:06 Percocet 5/325 PO 1 tab Q6H PRN Administration Pain, Moderate (4-6) Sodium Chloride 10 ml 08/16/18 10:00 08/23/18 22:07 Sodium Chloride Flush Syringe 10 Ml IV 10 ml BID ARLENE Administration Sodium Chloride 10 ml 08/16/18 03:07 08/16/18 06:17 Sodium Chloride Flush Syringe 10 Ml IV 10 ml PRN PRN Administration LINE FLUSH
[2018-08-24] MEDS: HumuLIN R SUB-Q SCH ×3 (09:00→17:52)
[2018-08-24] MEDS: HumaLOG SUB-Q SCH ×4 (09:00→21:08)
[2018-08-24] MEDS: BABY ASPIRIN PO SCH (10:18)
[2018-08-24] MEDS: COLACE PO SCH ×2 (10:18→21:07)
[2018-08-24] MEDS: COREG PO SCH ×2 (10:18→21:07)
[2018-08-24] MEDS: SODIUM CHLORIDE FLUSH SYRINGE 10 ML IV SCH ×2 (10:20→21:08)
[2018-08-24] MEDS: VITAMIN D3 PO SCH (10:26)
[2018-08-24] MEDS: HEPARIN SUB-Q SCH ×2 (10:27→21:09)
[2018-08-24] MEDS: ROCEPHIN/NS 1 GM/50 ML 1 GM/50 ML BAG IV SCH (10:35)
--- NOTE | 2018-08-24 10:35 | Progress Note ---
Assessment and Plan Assessment and plan: Acute heart failure with preserved EF. Continue present management. No ACEI or ARB due to advanced renal failure. CXR on 08/19/18 showed no pulmonary edema or pneumonia. Continue hemodialysis per nephrology. Acute on Chronic kidney disease, stage 3: Serum creatinine 2.6 today and yesterday's was 3.5, UOP recorded is 600 ml ,24 hour urine collection done revealed creatinine clearance of 6 ml/min. Patient had Perm-catheter placed 08/22 and hemodialysis was initiated. Secondary GN workup was negative. Renal ultrasound on 08/16/18- Chronic medical renal disease. No Hydronephrosis. No ACEI or ARB due to advanced renal failure. Renally dose all medications. Avoid Nephrotoxic agents. Strict I/O's monitoring Anasarca and scrotal edema. Elevated D-Dimer. VQ scan negative Hypertensive urgency: iv antihypertensives as needed, low salt diet DM type 2; ada and ssi HLD: treat with statins Malnutrition mild to moderate: counseling done, consulted [facility] Assistant Right toe pressure ulcer, poa, at least stage 3, heel ulcers bilateral also: see admission photos, local wound care done, continue Wound care Morbid obese, bmi 51.3, 342 lbs: counseled on lifestyle modification and weight reduction History Interval history: Patient is a 58-year-old male with history of hypertension, diabetes, HLD, CKD stage III who presents to [facility] ED with c/o bilateral lower extremity swelling and shortness of breath. Pt scrotum is swollen obstructing view of his penis. Currently patient is on 2L supplemental O2 with saturation of 94%. D-dimer slightly elevated at 463.24. CK-MB elevated at 5.0; troponin negative. 2D ECHO conclusions Global LV systolic function is normal, estimated estimated EF is 55-60%; abnormal LV diastolic dysfunction, mild to moderate concentric LV hypertrophy, trace mr, tr, RVSP calculated at 57 mmHg, No new issues overnight. Hospitalist Physical - Constitutional Vitals: Temp Pulse Resp BP Pulse Ox 98.4 F 68 18 136/62 96 08/24/18 07:41 08/24/18 10:18 08/24/18 07:41 08/24/18 07:41 08/24/18 09:00 General appearance: Present: no acute distress - EENT Eyes: Present: PERRL, EOM intact ENT: hearing intact, clear oral mucosa, dentition normal - Neck Neck: Present: supple, normal ROM - Respiratory Respiratory effort: normal Respiratory: bilateral: CTA - Cardiovascular Rhythm: regular Heart Sounds: Present: S1 & S2. Absent: gallop, rub - Extremities Extremities: no ischemia, No edema, Full ROM - Abdominal General gastrointestinal: soft, non-tender, non-distended, normal bowel sounds - Integumentary Integumentary: Present: clear, warm, dry - Neurologic Neurologic: CNII-XII intact, moves all extremities Results - Labs CBC & Chem 7: 08/23/18 05:09 08/24/18 05:09 Labs: Laboratory Last Values WBC 4.3 K/mm3 (4.5-11.0) L 08/23/18 05:09 RBC 3.60 M/mm3 (3.65-5.03) L 08/23/18 05:09 Hgb 9.6 gm/dl (11.8-15.2) L 08/23/18 05:09 Hct 29.6 % (35.5-45.6) L 08/23/18 05:09 MCV 82 fl (84-94) L 08/23/18 05:09 MCH 27 pg (28-32) L 08/23/18 05:09 MCHC 33 % (32-34) 08/23/18 05:09 RDW 16.6 % (13.2-15.2) H 08/23/18 05:09 Plt Count 134 K/mm3 (140-440) L 08/23/18 05:09 Lymph % (Auto) 26.6 % (13.4-35.0) 08/17/18 07:30 [place] % (Auto) First Aid Trainer 08/23/18 05:09 Eos % (Auto) 6.6 % (0.0-4.3) H 08/17/18 07:30 Baso % (Auto) 1.1 % (0.0-1.8) 08/17/18 07:30 Lymph # 1.3 K/mm3 (1.2-5.4) 08/17/18 07:30 [place] # 0.7 K/mm3 (0.0-0.8) 08/17/18 07:30 Eos # 0.3 K/mm3 (0.0-0.4) 08/17/18 07:30 Baso # 0.1 K/mm3 (0.0-0.1) 08/17/18 07:30 Add Manual Diff Complete 08/23/18 05:09 Total Counted 100 08/23/18 05:09 Seg Neutrophils % 51.7 % (40.0-70.0) 08/17/18 07:30 Seg Neuts % (Manual) 38.0 % (40.0-70.0) L 08/23/18 05:09 1.0 % 08/23/18 05:09 51.0 % (13.4-35.0) H 08/23/18 05:09 Reactive Lymphs % (Man) 0 % 08/23/18 05:09 8.0 % (0.0-7.3) H 08/23/18 05:09 2.0 % (0.0-4.3) 08/23/18 05:09 0 % (0.0-1.8) 08/23/18 05:09 0 % 08/23/18 05:09 0 % 08/23/18 05:09 0 % 08/23/18 05:09 0 % 08/23/18 05:09 Nucleated RBC % Not Reportable 08/23/18 05:09 Seg Neutrophils # 2.6 K/mm3 (1.8-7.7) 08/17/18 07:30 Seg Neutrophils # Man 1.6 K/mm3 (1.8-7.7) L 08/23/18 05:09 Band Neutrophils # 0.0 K/mm3 08/23/18 05:09 2.2 K/mm3 (1.2-5.4) 08/23/18 05:09 Abs React Lymphs (Man) 0.0 K/mm3 08/23/18 05:09 0.3 K/mm3 (0.0-0.8) 08/23/18 05:09 0.1 K/mm3 (0.0-0.4) 08/23/18 05:09 0.0 K/mm3 (0.0-0.1) 08/23/18 05:09 0.0 K/mm3 08/23/18 05:09 0.0 K/mm3 08/23/18 05:09 0.0 K/mm3 08/23/18 05:09 Blast Cells # 0.0 K/mm3 08/23/18 05:09 WBC Morphology Not Reportable 08/23/18 05:09 Hypersegmented Neuts Not Reportable 08/23/18 05:09 Hyposegmented Neuts Not Reportable 08/23/18 05:09 Hypogranular Neuts Not Reportable 08/23/18 05:09 Not Reportable 08/23/18 05:09 Not Reportable 08/23/18 05:09 Not Reportable 08/23/18 05:09 Not Reportable 08/23/18 05:09 Not Reportable 08/23/18 05:09 Not Reportable 08/23/18 05:09 Consistent w auto 08/23/18 05:09 Not Reportable 08/23/18 05:09 Plt Clumps, EDTA Not Reportable 08/23/18 05:09 Not Reportable 08/23/18 05:09 Not Reportable 08/23/18 05:09 Not Reportable 08/23/18 05:09 Plt Morphology Comment Not Reportable 08/23/18 05:09 RBC Morphology Not Reportable 08/23/18 05:09 Dimorphic RBCs Not Reportable 08/23/18 05:09 Not Reportable 08/23/18 05:09 Not Reportable 08/23/18 05:09 Not Reportable 08/23/18 05:09 1+ 08/23/18 05:09 Not Reportable 08/23/18 05:09 Not Reportable 08/23/18 05:09 Not Reportable 08/23/18 05:09 Not Reportable 08/23/18 05:09 Not Reportable 08/23/18 05:09 Not Reportable 08/23/18 05:09 Not Reportable 08/23/18 05:09 Not Reportable 08/23/18 05:09 Not Reportable 08/23/18 05:09 Not Reportable 08/23/18 05:09 Not Reportable 08/23/18 05:09 Not Reportable 08/23/18 05:09 Not Reportable 08/23/18 05:09 Not Reportable 08/23/18 05:09 1+ 08/23/18 05:09 Acanthocytes (Spur) Not Reportable 08/23/18 05:09 Rouleaux Not Reportable 08/23/18 05:09 Not Reportable 08/23/18 05:09 Not Reportable 08/23/18 05:09 Not Reportable 08/23/18 05:09 Not Reportable 08/23/18 05:09 Hem Pathologist Commnt No 08/23/18 05:09 463.24 ng/mlDDU (0-234) H 08/15/18 21:24 Sodium 135 mmol/L (137-145) L 08/24/18 05:09 Potassium 4.1 mmol/L (3.6-5.0) 08/24/18 05:09 Chloride 97.4 mmol/L (98-107) L 08/24/18 05:09 Carbon Dioxide 25 mmol/L (22-30) 08/24/18 05:09 17 mmol/L 08/24/18 05:09 BUN 38 mg/dL (9-20) H 08/24/18 05:09 2.3 mg/dL (0.8-1.5) H 08/24/18 05:09 Estimated GFR 30 ml/min 08/24/18 05:09 17 % 08/24/18 05:09 Glucose 183 mg/dL (75-100) H 08/24/18 05:09 POC Glucose 171 (70-105) H 08/24/18 07:49 7.4 % (4-6) H 08/16/18 03:37 Lactic Acid 0.70 mmol/L (0.7-2.0) 08/20/18 04:53 Calcium 8.4 mg/dL (8.4-10.2) 08/24/18 05:09 Phosphorus 3.80 mg/dL (2.5-4.5) 08/24/18 05:09 Iron 30 ug/dL (49-181) L 08/16/18 13:52 TIBC 352 mcg/dL (250-450) 08/16/18 13:52 78.2 ng/mL (13.0-400.0) 08/18/18 08:34 0.40 mg/dL (0.1-1.2) 08/15/18 18:54 AST 25 units/L (5-40) 08/15/18 18:54 ALT 15 units/L (7-56) 08/15/18 18:54 74 units/L (35-129) 08/15/18 18:54 340 units/L (55-170) H 08/15/18 21:24 CK-MB (CK-2) 5.0 ng/mL (0.0-4.0) H 08/15/18 21:24 CK-MB (CK-2) Rel Index 1.4 (0-4) 08/15/18 21:24 0.026 ng/mL (0.00-0.029) 08/15/18 21:24 NT-Pro-B Natriuret Pep 877.6 pg/mL (0-900) 08/17/18 11:13 6.1 g/dL (6.1-8.1) 08/17/18 11:13 6.7 g/dL (6.3-8.2) 08/15/18 18:54 2.9 g/dL (3.8-4.8) L 08/17/18 11:13 0.9 % 08/15/18 18:54 0.4 g/dL (0.2-0.3) H 08/17/18 11:13 0.7 g/dL (0.5-0.9) 08/17/18 11:13 0.5 g/dL (0.2-0.5) 08/17/18 11:13 1.1 g/dL (0.8-1.7) 08/17/18 11:13 Abnorm Protein Band 1 see below 08/17/18 11:13 PEP Interpretation see below H 08/17/18 11:13 Triglycerides 140 mg/dL (2-149) 08/16/18 03:37 Cholesterol 147 mg/dL (50-199) 08/16/18 03:37 88 mg/dL (50-130) 08/16/18 03:37 37 mg/dL (40-59) L 08/16/18 03:37 3.97 % 08/16/18 03:37 Straw (Yellow) 08/17/18 04:00 Clear (Clear) 08/17/18 04:00 7.0 (5.0-7.0) 08/17/18 04:00 Ur Specific [place] 1.006 (1.003-1.030) 08/17/18 04:00 100 mg/dl mg/dL (Negative) 08/17/18 04:00 Neg mg/dL (Negative) 08/17/18 04:00 Neg mg/dL (Negative) 08/17/18 04:00 Neg (Negative) 08/17/18 04:00 Neg (Negative) 08/17/18 04:00 Neg (Negative) 08/17/18 04:00 < 2.0 mg/dL (<2.0) 08/17/18 04:00 Ur Leukocyte Esterase Neg (Negative) 08/17/18 04:00 < 1.0 /HPF (0.0-6.0) 08/17/18 04:00 2.0 /HPF (0.0-6.0) 08/17/18 04:00 U Epithel Cells (Auto) 1.0 /HPF (0-13.0) 08/15/18 18:47 1+ /HPF (Negative) 08/17/18 04:00 Few /HPF 08/15/18 18:47 None seen (None Seen) 08/17/18 04:00 800 ml 08/20/18 12:09 56.1 mg/dL (0.1-20.0) H 08/20/18 12:09 Height (in) 68.0 inches 08/20/18 12:09 Weight (lb) 348.8 lbs 08/20/18 12:09 6 08/20/18 12:09 Protein/Creatinin Ratio 3.53 08/17/18 04:00 132 mmol/L 08/17/18 04:00 106 08/17/18 04:00 79 mg/dL (5-11.8) H 08/17/18 04:00 Immunofix Electrophor see below 08/17/18 11:13 JELANI Screen Negative (Negative) 08/17/18 11:13 Double Strand DNA Ab <1 IU/mL (<=4) 08/17/18 11:13 144 mg/dL (82-185) 08/17/18 11:13 23 mg/dL (15-53) 08/17/18 11:13 RPR Nonreactive (Nonreactive) 08/17/18 11:13 Hepatitis A IgM Ab Non-reactive (NonReactive) 08/17/18 11:13 Hep Bs Antigen Non-reactive (Negative) 08/17/18 11:13 Hep B Core IgM Ab Non-reactive (NonReactive) 08/17/18 11:13 Non-reactive (NonReactive) 08/17/18 11:13 HIV 1&2 Antibody Rapid Non react (Non React) 08/17/18 11:13 Non react (Non React) 08/17/18 11:13 Active Medications - Current Medications Current Medications: Generic Name Dose Route Start Last Admin Trade Name Freq PRN Reason Stop Dose Admin Acetaminophen 650 mg 08/16/18 03:07 08/21/18 21:55 Tylenol PO 650 mg Q4H PRN Administration Pain MILD(1-3)/Fever >100.5/FRAIRE Albuterol 2.5 mg 08/16/18 03:07 Proventil IH Q4HRT PRN Shortness Of Breath Aspirin 81 mg 08/16/18 10:00 08/24/18 10:18 Baby Aspirin PO 81 mg QDAY ARLENE Administration Atorvastatin Calcium 40 mg 08/16/18 22:00 08/23/18 22:07 Lipitor PO 40 mg QHS ARLENE Administration Carvedilol 6.25 mg 08/17/18 12:00 08/24/18 10:18 Coreg PO 6.25 mg BID ARLENE Administration Cholecalciferol 5,000 unit 08/16/18 10:00 08/24/18 10:26 Vitamin D3 PO 5,000 unit DAILY ARLENE Administration Dextrose 50 ml 08/16/18 03:13 D50w (25gm) Syringe IV PRN PRN Hypoglycemia Docusate Sodium 100 mg 08/16/18 10:00 08/24/18 10:18 Colace PO 100 mg BID ARLENE Administration Epoetin [place] 10,000 unit 08/18/18 13:00 08/22/18 18:19 Procrit SUB-Q 10,000 unit MOWEFR ARLENE Administration Gabapentin 300 mg 08/16/18 22:00 08/23/18 22:05 Neurontin PO 300 mg QHS ARLENE Administration Heparin Sodium (Porcine) 5,000 unit 08/16/18 10:00 08/23/18 22:05 Heparin SUB-Q 5,000 unit Q12HR ARLENE Administration Hydralazine HCl 50 mg 08/16/18 14:00 08/24/18 06:23 Apresoline PO 50 mg Q8HR ARLENE Administration Ceftriaxone Sodium 1 gm in 50 mls @ 100 mls/hr 08/18/18 15:00 08/23/18 14:35 Rocephin/Ns 1 Gm/50 Ml IV 100 mls/hr Q24HR ARLENE Administration Protocol Insulin Human Lispro 0 unit 08/16/18 07:30 08/24/18 09:00 Humalog SUB-Q 2 unit ACHS ARLENE Administration Protocol Insulin Human Regular 5 units 08/16/18 07:30 08/24/18 09:00 Humulin R SUB-Q 5 units AC ARLENE Administration Nitroglycerin 0.4 mg 08/16/18 03:07 Nitrostat SL .Q5MIN PRN Chest Pain Ondansetron HCl 4 mg 08/16/18 03:07 08/16/18 16:39 Zofran IV 4 mg Q8H PRN Administration Nausea And Vomiting Oxycodone/Acetaminophen 1 tab 08/16/18 03:07 08/23/18 22:06 Percocet 5/325 PO 1 tab Q6H PRN Administration Pain, Moderate (4-6) Sodium Chloride 10 ml 08/16/18 10:00 08/24/18 10:20 Sodium Chloride Flush Syringe 10 Ml IV 10 ml BID ARLENE Administration Sodium Chloride 10 ml 08/16/18 03:07 08/16/18 06:17 Sodium Chloride Flush Syringe 10 Ml IV 10 ml PRN PRN Administration LINE FLUSH Nutrition/Malnutrition Assess - Dietary Evaluation Nutrition/Malnutrition Findings: Nutrition Notes Start: 08/16/18 09:25 Freq: Status: Active Protocol: Document 08/19/18 14:48 GHASSAN (Rec: 08/19/18 14:54 GHASSAN [email or web address]) Nutrition Notes Initial or Follow up Brief Note Current Diagnosis CKD(stage I-IV),Diabetes Other Pertinent Diagnosis Fluid retention in scrotum and BLE edema, wounds on toe, heel and leg Current Diet Cardiac/consistent CHO Labs/Tests Na 134 BUN 55 Cr 4.4 Pertinent Medications Reviewed [place] Body Weight (kg) 0 Subjective/Other Information Pt reports good appetite; has been consuming 75-100% of meals. Nutrition Intervention Revisit per MD consult or patient Sign Off request:
--- NOTE | 2018-08-24 12:03 | Progress Note ---
Assessment and Plan on hd cpm from a cardiac perspective d/w pt and [id number]. - Patient Problems (1) Anasarca Current Visit: Yes Status: Acute (2) CKD (chronic kidney disease) Current Visit: Yes Status: Acute Qualifiers: Chronic kidney disease stage: stage 3 (moderate) Qualified Code(s): N18.3 - Chronic kidney disease, stage 3 (moderate) (3) Elevated d-dimer Current Visit: Yes Status: Acute (4) Sleep apnea with use of continuous positive airway pressure (CPAP) Current Visit: Yes Status: Acute (5) Essential hypertension Current Visit: Yes Status: Chronic (6) Hyperlipemia, mixed Current Visit: Yes Status: Chronic (7) Morbid obesity Current Visit: Yes Status: Chronic Subjective Date of service: 08/24/18 Principal diagnosis: CHF; CKD;; HANSEN; Elevated d-dimer; Essential HTN; Morbid obesity; MARBELLA Interval history: no complaints, at hd Objective Vital Signs Temp Pulse Resp Resp BP BP Pulse Ox 08/24/18 11:44 98 F 74 18 131/76 93 08/24/18 11:29 98.0 F 18 131/61 08/24/18 10:18 68 08/24/18 10:00 20 08/24/18 09:00 96 08/24/18 07:41 98.4 F 69 18 136/62 96 08/24/18 06:23 68 146/77 08/24/18 05:34 74 18 98 08/24/18 04:36 98.1 F 68 18 146/77 95 08/24/18 01:38 75 16 96 08/24/18 00:19 98.4 F 73 18 170/79 95 08/23/18 23:06 20 08/23/18 22:10 77 18 96 08/23/18 22:08 20 08/23/18 22:06 73 20 163/66 08/23/18 22:00 98 08/23/18 21:00 20 97 08/23/18 19:38 69 08/23/18 19:23 98.0 F 73 18 163/66 95 08/23/18 17:25 97.9 F 68 18 124/63 95 08/23/18 14:36 79 135/76 08/23/18 13:56 78 134/69 93 08/23/18 13:20 98.0 F 79 18 135/76 08/23/18 13:15 78 140/73 08/23/18 13:00 78 122/55 08/23/18 12:45 78 122/54 08/23/18 12:30 79 124/52 08/23/18 12:15 81 134/58 - Physical Examination General: Appears Well HEENT: Positive: PERRL, Mucus Membranes Moist Neck: Positive: neck supple, trachea midline Neuro: Positive: Grossly Intact Abdomen: Positive: Soft, Active Bowel Sounds. Negative: Tender, Distended Skin: Positive: Clear Incision: Cardiac Cath Site Musculoskeletal: No Pain, Normal Range of Motion Extremities: Present: normal, edema, +1 Edema, Other (scrotal edema) - Labs and Meds Comprehensive Metabolic Panel 08/24/18 Range/Units 05:09 Sodium 135 L (137-145) mmol/L Potassium 4.1 (3.6-5.0) mmol/L Chloride 97.4 L (98-107) mmol/L Carbon Dioxide 25 (22-30) mmol/L BUN 38 H (9-20) mg/dL Creatinine 2.3 H (0.8-1.5) mg/dL Glucose 183 H (75-100) mg/dL Calcium 8.4 (8.4-10.2) mg/dL - Imaging and Cardiology EKG: image reviewed (sinus rhythm at 76 bpm) Echo: report reviewed (2015 normal LV function.Positive bubble study PFO), other (08/17/2018 normal LV function and diastolic dysfunction mild to moderate LVH no significant regurgitations) - Allied health notes Allied health notes reviewed: nursing
--- NOTE | 2018-08-24 15:40 | Progress Note ---
Assessment and Plan CHF (congestive heart failure) CKD (chronic kidney disease) HANSEN (dyspnea on exertion) Elevated d-dimer Essential hypertension Morbid obesity Sleep apnea with use of continuous positive airway pressure (CPAP) - continue supplemental oxygen as needed to keep O2 sats > 90% - continue bronchodilators with pulmonary hygiene per RT - continue HD/UF for toxin and volume clearance - suspect deconditioning playing a major role in HANSEN; continue PT/OT as tolerated - continue BIPAP therapy qhs re: MARBELLA/OHS - weight loss counseled - VQ scan and lower extremity dopplers normal; no further VTE w/up - continue chronic disease meds per attending - neurology evaluation ongoing - GI & VTE prophylaxis - Flu & pneumovax per protocol - outpatient pulmonary clinic f/up .. re-evaluate in am & prn Subjective Date of service: 08/24/18 Principal diagnosis: CHF; CKD; HANSEN; Elevated d-dimer; Essential HTN; Morbid obesity; MARBELLA Interval history: Patient is seen today for: CHF (congestive heart failure); CKD (chronic kidney disease); HANSEN (dyspnea on exertion); Elevated d-dimer; Essential hypertension; Morbid obesity; Sleep apnea with use of continuous positive airway pressure (CPAP) Seen and examined at bedside; 24hour events reviewed; nursing and respiratory care staff consulted; no adverse overnight events reported to me; improviong; feels better; remains on oxygen therapy; denies acute chest pains or palpitations Objective Vital Signs - 12hr 08/24/18 08/24/18 08/24/18 04:36 05:34 06:23 Temperature 98.1 F Pulse Rate 68 74 68 Respiratory 18 18 Rate Blood Pressure 146/77 146/77 Blood Pressure [Left] O2 Sat by Pulse 95 98 Oximetry 08/24/18 08/24/18 08/24/18 07:41 09:00 10:00 Temperature 98.4 F Pulse Rate 69 Respiratory 18 20 Rate Blood Pressure 136/62 Blood Pressure [Left] O2 Sat by Pulse 96 96 Oximetry 08/24/18 08/24/18 08/24/18 10:18 11:29 11:44 Temperature 98.0 F 98 F Pulse Rate 68 74 Respiratory 18 18 Rate Blood Pressure 131/61 Blood Pressure 131/76 [Left] O2 Sat by Pulse 93 Oximetry 08/24/18 08/24/18 14:14 15:25 Temperature 98.0 F Pulse Rate 70 Respiratory 20 Rate Blood Pressure 149/69 Blood Pressure [Left] O2 Sat by Pulse Oximetry Constitutional: no acute distress, alert, other (Morbidly Obese middle aged CM) Eyes: non-icteric ENT: oropharynx moist, other (mallampati 4) Neck: supple, no JVD, other (large neck circumference) Effort: mildly labored Ascultation: Bilateral: diminished breath sounds, rhonchi (scant in bases) Percussion: Bilateral: not dull Cardiovascular: regular rate and rhythm Gastrointestinal: normoactive bowel sounds, soft, non-tender, other (protuberant) Integumentary: cellulitis, other (Cellulitis and wounds in both lower legs.) Extremities: no cyanosis, pink and warm, pulses normal, edema (trace to 1+) Neurologic: normal mental status, non-focal exam, pupils equal and round, CN II- XII normal Psychiatric: mood appropriate, affect normal CBC and BMP: 08/30/18 04:17 08/31/18 09:06 ABG, PT/INR, D-dimer: PT/INR, D-dimer 463.24 ng/mlDDU (0-234) H 08/15/18 21:24 Abnormal lab findings: Abnormal Labs 08/15/18 08/15/18 08/15/18 18:02 18:54 18:54 WBC RBC 3.61 L Hgb 9.8 L Hct 30.1 L MCV MCH 27 L RDW 16.8 H Plt Count [place] % (Auto) 10.7 H Eos % (Auto) 5.9 H Seg Neuts % (Manual) Lymphocytes % (Manual) Monocytes % (Manual) Eosinophils % (Manual) Basophils % (Manual) Seg Neutrophils # Man D-Dimer Sodium Chloride 107.7 H BUN 25 H Creatinine 2.5 H Glucose 159 H POC Glucose 124 H Hemoglobin A1c Phosphorus Iron Total Creatine Kinase CK-MB (CK-2) Albumin 3.2 L Pcdnv-3-Wuawnmawz PEP Interpretation HDL Cholesterol Urine Creatinine Urine Total Protein 08/15/18 08/15/18 08/16/18 21:24 21:24 03:37 WBC RBC Hgb Hct MCV MCH RDW Plt Count [place] % (Auto) Eos % (Auto) Seg Neuts % (Manual) Lymphocytes % (Manual) Monocytes % (Manual) Eosinophils % (Manual) Basophils % (Manual) Seg Neutrophils # Man D-Dimer 463.24 H Sodium Chloride BUN Creatinine Glucose POC Glucose Hemoglobin A1c 7.4 H Phosphorus Iron Total Creatine Kinase 340 H CK-MB (CK-2) 5.0 H Albumin Tgnfm-7-Nfvqqnitp PEP Interpretation HDL Cholesterol Urine Creatinine Urine Total Protein 08/16/18 08/16/18 08/16/18 03:37 07:54 12:01 WBC RBC Hgb Hct MCV MCH RDW Plt Count [place] % (Auto) Eos % (Auto) Seg Neuts % (Manual) Lymphocytes % (Manual) Monocytes % (Manual) Eosinophils % (Manual) Basophils % (Manual) Seg Neutrophils # Sadi D-Dimer Sodium Chloride BUN Creatinine Glucose POC Glucose 113 H 179 H Hemoglobin A1c Phosphorus Iron Total Creatine Kinase CK-MB (CK-2) Albumin Mxlwg-4-Bahinedtz PEP Interpretation HDL Cholesterol 37 L Urine Creatinine Urine Total Protein 08/16/18 08/16/18 08/16/18 13:52 17:44 21:21 WBC RBC Hgb Hct MCV MCH RDW Plt Count [place] % (Auto) Eos % (Auto) Seg Neuts % (Manual) Lymphocytes % (Manual) Monocytes % (Manual) Eosinophils % (Manual) Basophils % (Manual) Seg Neutrophils # Sadi D-Dimer Sodium Chloride BUN Creatinine Glucose POC Glucose 221 H 165 H Hemoglobin A1c Phosphorus Iron 30 L Total Creatine Kinase CK-MB (CK-2) Albumin Robha-9-Orcpdiwmd PEP Interpretation HDL Cholesterol Urine Creatinine Urine Total Protein 08/17/18 08/17/18 08/17/18 04:00 07:30 07:30 WBC RBC Hgb 10.3 L Hct 31.5 L MCV 82 L MCH 27 L RDW 16.8 H Plt Count [place] % (Auto) 14.0 H Eos % (Auto) 6.6 H Seg Neuts % (Manual) Lymphocytes % (Manual) Monocytes % (Manual) Eosinophils % (Manual) Basophils % (Manual) Seg Neutrophils # Sadi D-Dimer Sodium Chloride BUN 32 H Creatinine 2.9 H Glucose 180 H POC Glucose Hemoglobin A1c Phosphorus Iron Total Creatine Kinase CK-MB (CK-2) Albumin Etsdx-5-Omvicjnkd PEP Interpretation HDL Cholesterol Urine Creatinine 22.4 H Urine Total Protein 79 H 08/17/18 08/17/18 08/17/18 07:34 11:13 12:17 WBC RBC Hgb Hct MCV MCH RDW Plt Count [place] % (Auto) Eos % (Auto) Seg Neuts % (Manual) Lymphocytes % (Manual) Monocytes % (Manual) Eosinophils % (Manual) Basophils % (Manual) Seg Neutrophils # Sadi D-Dimer Sodium Chloride BUN Creatinine Glucose POC Glucose 169 H 207 H Hemoglobin A1c Phosphorus Iron Total Creatine Kinase CK-MB (CK-2) Albumin 2.9 L Bsmmp-8-Loyuibhcq 0.4 H PEP Interpretation see below H HDL Cholesterol Urine Creatinine Urine Total Protein 08/17/18 08/17/18 08/18/18 16:36 21:17 07:05 WBC RBC Hgb Hct MCV MCH RDW Plt Count [place] % (Auto) Eos % (Auto) Seg Neuts % (Manual) Lymphocytes % (Manual) Monocytes % (Manual) Eosinophils % (Manual) Basophils % (Manual) Seg Neutrophils # Sadi D-Dimer Sodium 134 L Chloride 95.9 L BUN 43 H Creatinine 3.8 H Glucose 150 H POC Glucose 184 H 209 H Hemoglobin A1c Phosphorus Iron Total Creatine Kinase CK-MB (CK-2) Albumin Viwbb-4-Yhonqrloh PEP Interpretation HDL Cholesterol Urine Creatinine Urine Total Protein 08/18/18 08/18/18 08/18/18 07:53 08:34 11:53 WBC RBC Hgb 10.8 L Hct 33.8 L MCV MCH 27 L RDW 16.3 H Plt Count [place] % (Auto) Eos % (Auto) Seg Neuts % (Manual) Lymphocytes % (Manual) Monocytes % (Manual) Eosinophils % (Manual) Basophils % (Manual) Seg Neutrophils # Sadi D-Dimer Sodium Chloride BUN Creatinine Glucose POC Glucose 139 H 191 H Hemoglobin A1c Phosphorus Iron Total Creatine Kinase CK-MB (CK-2) Albumin Fhpdl-6-Qqkgkqbif PEP Interpretation HDL Cholesterol Urine Creatinine Urine Total Protein 08/18/18 08/18/18 08/19/18 15:54 20:49 05:28 WBC RBC Hgb 9.7 L Hct 30.1 L MCV 82 L MCH 26 L RDW 16.6 H Plt Count 136 L [place] % (Auto) Eos % (Auto) Seg Neuts % (Manual) Lymphocytes % (Manual) Monocytes % (Manual) Eosinophils % (Manual) Basophils % (Manual) Seg Neutrophils # Sadi D-Dimer Sodium Chloride BUN Creatinine Glucose POC Glucose 150 H 138 H Hemoglobin A1c Phosphorus Iron Total Creatine Kinase CK-MB (CK-2) Albumin Mhtza-6-Tujoybguj PEP Interpretation HDL Cholesterol Urine Creatinine Urine Total Protein 08/19/18 08/19/18 08/19/18 05:28 07:43 11:57 WBC RBC Hgb Hct MCV MCH RDW Plt Count [place] % (Auto) Eos % (Auto) Seg Neuts % (Manual) Lymphocytes % (Manual) Monocytes % (Manual) Eosinophils % (Manual) Basophils % (Manual) Seg Neutrophils # Man D-Dimer Sodium 134 L Chloride 96.2 L BUN 55 H Creatinine 4.4 H Glucose 118 H POC Glucose 162 H 280 H Hemoglobin A1c Phosphorus Iron Total Creatine Kinase CK-MB (CK-2) Albumin Ttztu-2-Gtgyerqxv PEP Interpretation HDL Cholesterol Urine Creatinine Urine Total Protein 08/19/18 08/19/18 08/20/18 15:41 21:44 04:53 WBC 3.5 L RBC 3.58 L Hgb 9.4 L Hct 29.5 L MCV 83 L MCH 26 L RDW 16.4 H Plt Count 121 L [place] % (Auto) Eos % (Auto) Seg Neuts % (Manual) Lymphocytes % (Manual) Monocytes % (Manual) 16.0 H Eosinophils % (Manual) Basophils % (Manual) 3.0 H Seg Neutrophils # Man 1.6 L D-Dimer Sodium Chloride BUN Creatinine Glucose POC Glucose 167 H 234 H Hemoglobin A1c Phosphorus Iron Total Creatine Kinase CK-MB (CK-2) Albumin Dccyu-5-Hbrxccjmn PEP Interpretation HDL Cholesterol Urine Creatinine Urine Total Protein 08/20/18 08/20/18 08/20/18 04:53 08:13 12:09 WBC RBC Hgb Hct MCV MCH RDW Plt Count [place] % (Auto) Eos % (Auto) Seg Neuts % (Manual) Lymphocytes % (Manual) Monocytes % (Manual) Eosinophils % (Manual) Basophils % (Manual) Seg Neutrophils # Man D-Dimer Sodium 136 L Chloride BUN 57 H Creatinine 3.3 H Glucose 136 H POC Glucose 124 H Hemoglobin A1c Phosphorus 5.50 H Iron Total Creatine Kinase CK-MB (CK-2) Albumin Qykwf-1-Jrwticyml PEP Interpretation HDL Cholesterol Urine Creatinine 56.1 H Urine Total Protein 08/20/18 08/20/18 08/20/18 12:49 18:26 20:53 WBC RBC Hgb Hct MCV MCH RDW Plt Count [place] % (Auto) Eos % (Auto) Seg Neuts % (Manual) Lymphocytes % (Manual) Monocytes % (Manual) Eosinophils % (Manual) Basophils % (Manual) Seg Neutrophils # Sadi D-Dimer Sodium Chloride BUN Creatinine Glucose POC Glucose 145 H 175 H 184 H Hemoglobin A1c Phosphorus Iron Total Creatine Kinase CK-MB (CK-2) Albumin Gxkvm-9-Dtupewowr PEP Interpretation HDL Cholesterol Urine Creatinine Urine Total Protein 08/21/18 08/21/18 08/21/18 04:28 04:28 08:58 WBC 3.8 L RBC 3.42 L Hgb 9.2 L Hct 28.4 L MCV 83 L MCH 27 L RDW 16.4 H Plt Count 126 L [place] % (Auto) Eos % (Auto) Seg Neuts % (Manual) Lymphocytes % (Manual) Monocytes % (Manual) 15.0 H Eosinophils % (Manual) Basophils % (Manual) Seg Neutrophils # Sadi D-Dimer Sodium 134 L Chloride 96.5 L BUN 59 H Creatinine 3.4 H Glucose 190 H POC Glucose 159 H Hemoglobin A1c Phosphorus 5.10 H Iron Total Creatine Kinase CK-MB (CK-2) Albumin Dgxhb-6-Cnypqnsan PEP Interpretation HDL Cholesterol Urine Creatinine Urine Total Protein 08/21/18 08/21/18 08/21/18 12:25 17:10 21:43 WBC RBC Hgb Hct MCV MCH RDW Plt Count [place] % (Auto) Eos % (Auto) Seg Neuts % (Manual) Lymphocytes % (Manual) Monocytes % (Manual) Eosinophils % (Manual) Basophils % (Manual) Seg Neutrophils # Sadi D-Dimer Sodium Chloride BUN Creatinine Glucose POC Glucose 222 H 152 H 150 H Hemoglobin A1c Phosphorus Iron Total Creatine Kinase CK-MB (CK-2) Albumin Uklli-7-Wivvuwleu PEP Interpretation HDL Cholesterol Urine Creatinine Urine Total Protein 08/22/18 08/22/18 08/22/18 04:50 04:51 08:08 WBC 3.7 L RBC 3.37 L Hgb 9.0 L Hct 27.8 L MCV 83 L MCH 27 L RDW 16.9 H Plt Count 124 L [place] % (Auto) Eos % (Auto) Seg Neuts % (Manual) Lymphocytes % (Manual) Monocytes % (Manual) 13.0 H Eosinophils % (Manual) 11.0 H Basophils % (Manual) Seg Neutrophils # Sadi 1.6 L D-Dimer Sodium 135 L Chloride 97.4 L BUN 64 H Creatinine 3.5 H Glucose 114 H POC Glucose 117 H Hemoglobin A1c Phosphorus 4.90 H Iron Total Creatine Kinase CK-MB (CK-2) Albumin Ddlch-8-Hwkfaccil PEP Interpretation HDL Cholesterol Urine Creatinine Urine Total Protein 08/22/18 08/22/18 08/23/18 14:48 21:36 05:09 WBC 4.3 L RBC 3.60 L Hgb 9.6 L Hct 29.6 L MCV 82 L MCH 27 L RDW 16.6 H Plt Count 134 L [place] % (Auto) Eos % (Auto) Seg Neuts % (Manual) 38.0 L Lymphocytes % (Manual) 51.0 H Monocytes % (Manual) 8.0 H Eosinophils % (Manual) Basophils % (Manual) Seg Neutrophils # Man 1.6 L D-Dimer Sodium Chloride BUN Creatinine Glucose POC Glucose 211 H 268 H Hemoglobin A1c Phosphorus Iron Total Creatine Kinase CK-MB (CK-2) Albumin Wojtl-1-Cuiujdgvx PEP Interpretation HDL Cholesterol Urine Creatinine Urine Total Protein 08/23/18 08/23/18 08/23/18 05:09 07:44 14:02 WBC RBC Hgb Hct MCV MCH RDW Plt Count [place] % (Auto) Eos % (Auto) Seg Neuts % (Manual) Lymphocytes % (Manual) Monocytes % (Manual) Eosinophils % (Manual) Basophils % (Manual) Seg Neutrophils # Man D-Dimer Sodium Chloride BUN 45 H Creatinine 2.6 H Glucose 174 H POC Glucose 240 H 161 H Hemoglobin A1c Phosphorus Iron Total Creatine Kinase CK-MB (CK-2) Albumin Jrnex-7-Hfskoqvvk PEP Interpretation HDL Cholesterol Urine Creatinine Urine Total Protein 08/23/18 08/23/18 08/24/18 17:33 20:32 05:09 WBC RBC Hgb Hct MCV MCH RDW Plt Count [place] % (Auto) Eos % (Auto) Seg Neuts % (Manual) Lymphocytes % (Manual) Monocytes % (Manual) Eosinophils % (Manual) Basophils % (Manual) Seg Neutrophils # Man D-Dimer Sodium 135 L Chloride 97.4 L BUN 38 H Creatinine 2.3 H Glucose 183 H POC Glucose 217 H 208 H Hemoglobin A1c Phosphorus Iron Total Creatine Kinase CK-MB (CK-2) Albumin Kqtmp-2-Jjudnimum PEP Interpretation HDL Cholesterol Urine Creatinine Urine Total Protein 08/24/18 08/24/18 07:49 11:32 WBC RBC Hgb Hct MCV MCH RDW Plt Count [place] % (Auto) Eos % (Auto) Seg Neuts % (Manual) Lymphocytes % (Manual) Monocytes % (Manual) Eosinophils % (Manual) Basophils % (Manual) Seg Neutrophils # Man D-Dimer Sodium Chloride BUN Creatinine Glucose POC Glucose 171 H 271 H Hemoglobin A1c Phosphorus Iron Total Creatine Kinase CK-MB (CK-2) Albumin Daryy-4-Cnrvamnrb PEP Interpretation HDL Cholesterol Urine Creatinine Urine Total Protein Allied health notes reviewed: nursing
[2018-08-24] MEDS: NEURONTIN PO SCH (21:07)
[2018-08-25 05:20] LABS: Hemoglobin 9.1 gm/dl (11.8-15.2); Mean Corpuscular HGB Conc 33 % (32-34); Mean Corpuscular Volume 82 fl (84-94); Platelet Count 133 K/mm3 (140-440); Red Blood Count 3.41 M/mm3 (3.65-5.03)
[2018-08-25 05:43] LABS: Calcium 8.5 mg/dL (8.4-10.2)
[2018-08-25] MEDS: APRESOLINE PO SCH ×3 (06:35→21:51)
[2018-08-25 08:00] LABS: Total Cells Counted 100
[2018-08-25 08:04] LABS: Anisocytosis 1+; Large Platelets Rare; Platelet Estimate Consistent w Auto; Poikilocytosis 1+
--- NOTE | 2018-08-25 09:39 | Progress Note ---
<FERCHO SANCHEZ R - Last Filed: 08/25/18 09:38> Assessment and Plan Assessment and plan: Acute heart failure with preserved EF. Continue present management. No ACEI or ARB due to advanced renal failure. CXR on 08/19/18 showed no pulmonary edema or pneumonia. Continue hemodialysis per nephrology. Acute on Chronic kidney disease, stage 3: Patient had Perm-catheter placed 08/22 and hemodialysis was initiated. Secondary GN workup was negative. Renal ultrasound on 08/16/18- Chronic medical renal disease. No Hydronephrosis. No ACEI or ARB due to advanced renal failure. Renally dose all medications. Avoid Nephrotoxic agents. Strict I/O's monitoring. Nephrology to determine long-term needs for hemodialysis. Anasarca and scrotal edema. Elevated D-Dimer. VQ scan negative Hypertensive urgency: iv antihypertensives as needed, low salt diet DM type 2; ada and ssi HLD: treat with statins Malnutrition mild to moderate: counseling done, consulted Rig Supervisor Right toe pressure ulcer, poa, at least stage 3, heel ulcers bilateral also: see admission photos, local wound care done, continue Wound care Morbid obese, bmi 51.3, 342 lbs: counseled on lifestyle modification and weight reduction History Interval history: Patient is a 58-year-old male with history of hypertension, diabetes, HLD, CKD stage III who presents to [facility] ED with c/o bilateral lower extremity swelling and shortness of breath. Pt scrotum is swollen obstructing view of his penis. Currently patient is on 2L supplemental O2 with saturation of 94%. D-dimer slightly elevated at 463.24. CK-MB elevated at 5.0; troponin negative. 2D ECHO conclusions Global LV systolic function is normal, estimated estimated EF is 55- 60%; abnormal LV diastolic dysfunction, mild to moderate concentric LV hypertrophy, trace mr, tr, RVSP calculated at 57 mmHg, No new issues overnight. Hospitalist Physical - Constitutional Vitals: Temp Pulse Resp BP Pulse Ox 97.4 F L 68 20 124/56 95 08/25/18 04:07 08/25/18 06:35 08/25/18 04:07 08/25/18 06:35 08/25/18 04:07 General appearance: Present: no acute distress - EENT Eyes: Present: PERRL, EOM intact ENT: hearing intact, clear oral mucosa, dentition normal - Neck Neck: Present: supple, normal ROM - Respiratory Respiratory effort: normal Respiratory: bilateral: CTA - Cardiovascular Rhythm: regular Heart Sounds: Present: S1 & S2. Absent: gallop, rub - Extremities Extremities: no ischemia, No edema, Full ROM - Abdominal General gastrointestinal: soft, non-tender, non-distended, normal bowel sounds - Integumentary Integumentary: Present: clear, warm, dry - Neurologic Neurologic: CNII-XII intact, moves all extremities Results - Labs CBC & Chem 7: 08/25/18 04:43 08/25/18 04:43 Labs: Laboratory Last Values WBC 5.3 K/mm3 (4.5-11.0) 08/25/18 04:43 RBC 3.41 M/mm3 (3.65-5.03) L 08/25/18 04:43 Hgb 9.1 gm/dl (11.8-15.2) L 08/25/18 04:43 Hct 28.0 % (35.5-45.6) L 08/25/18 04:43 MCV 82 fl (84-94) L 08/25/18 04:43 MCH 27 pg (28-32) L 08/25/18 04:43 MCHC 33 % (32-34) 08/25/18 04:43 RDW 17.0 % (13.2-15.2) H 08/25/18 04:43 Plt Count 133 K/mm3 (140-440) L 08/25/18 04:43 Lymph % (Auto) 26.6 % (13.4-35.0) 08/17/18 07:30 Cowley % (Auto) Mold Presser 08/25/18 04:43 Eos % (Auto) 6.6 % (0.0-4.3) H 08/17/18 07:30 Baso % (Auto) 1.1 % (0.0-1.8) 08/17/18 07:30 Lymph # 1.3 K/mm3 (1.2-5.4) 08/17/18 07:30 Cowley # 0.7 K/mm3 (0.0-0.8) 08/17/18 07:30 Eos # 0.3 K/mm3 (0.0-0.4) 08/17/18 07:30 Baso # 0.1 K/mm3 (0.0-0.1) 08/17/18 07:30 Add Manual Diff Complete 08/25/18 04:43 Total Counted 100 08/25/18 04:43 Seg Neutrophils % 51.7 % (40.0-70.0) 08/17/18 07:30 Seg Neuts % (Manual) 62.0 % (40.0-70.0) 08/25/18 04:43 0 % 08/25/18 04:43 23.0 % (13.4-35.0) 08/25/18 04:43 Reactive Lymphs % (Man) 0 % 08/25/18 04:43 10.0 % (0.0-7.3) H 08/25/18 04:43 4.0 % (0.0-4.3) 08/25/18 04:43 1.0 % (0.0-1.8) 08/25/18 04:43 0 % 08/25/18 04:43 0 % 08/25/18 04:43 0 % 08/25/18 04:43 0 % 08/25/18 04:43 Nucleated RBC % Not Reportable 08/25/18 04:43 Seg Neutrophils # 2.6 K/mm3 (1.8-7.7) 08/17/18 07:30 Seg Neutrophils # Man 3.3 K/mm3 (1.8-7.7) 08/25/18 04:43 Band Neutrophils # 0.0 K/mm3 08/25/18 04:43 1.2 K/mm3 (1.2-5.4) 08/25/18 04:43 Abs React Lymphs (Man) 0.0 K/mm3 08/25/18 04:43 0.5 K/mm3 (0.0-0.8) 08/25/18 04:43 0.2 K/mm3 (0.0-0.4) 08/25/18 04:43 0.1 K/mm3 (0.0-0.1) 08/25/18 04:43 0.0 K/mm3 08/25/18 04:43 0.0 K/mm3 08/25/18 04:43 0.0 K/mm3 08/25/18 04:43 Blast Cells # 0.0 K/mm3 08/25/18 04:43 WBC Morphology Not Reportable 08/25/18 04:43 Hypersegmented Neuts Not Reportable 08/25/18 04:43 Hyposegmented Neuts Not Reportable 08/25/18 04:43 Hypogranular Neuts Not Reportable 08/25/18 04:43 Not Reportable 08/25/18 04:43 Not Reportable 08/25/18 04:43 Not Reportable 08/25/18 04:43 Not Reportable 08/25/18 04:43 Not Reportable 08/25/18 04:43 Not Reportable 08/25/18 04:43 Consistent w auto 08/25/18 04:43 Not Reportable 08/25/18 04:43 Plt Clumps, EDTA Not Reportable 08/25/18 04:43 Rare 08/25/18 04:43 Not Reportable 08/25/18 04:43 Not Reportable 08/25/18 04:43 Plt Morphology Comment Not Reportable 08/25/18 04:43 RBC Morphology Not Reportable 08/25/18 04:43 Dimorphic RBCs Not Reportable 08/25/18 04:43 Not Reportable 08/25/18 04:43 Not Reportable 08/25/18 04:43 1+ 08/25/18 04:43 1+ 08/25/18 04:43 Not Reportable 08/25/18 04:43 Not Reportable 08/25/18 04:43 Not Reportable 08/25/18 04:43 Not Reportable 08/25/18 04:43 Not Reportable 08/25/18 04:43 Not Reportable 08/25/18 04:43 Not Reportable 08/25/18 04:43 Not Reportable 08/25/18 04:43 Not Reportable 08/25/18 04:43 Not Reportable 08/25/18 04:43 Not Reportable 08/25/18 04:43 Not Reportable 08/25/18 04:43 Not Reportable 08/25/18 04:43 Not Reportable 08/25/18 04:43 1+ 08/25/18 04:43 Acanthocytes (Spur) Not Reportable 08/25/18 04:43 Rouleaux Not Reportable 08/25/18 04:43 Not Reportable 08/25/18 04:43 Not Reportable 08/25/18 04:43 Not Reportable 08/25/18 04:43 Not Reportable 08/25/18 04:43 Hem Pathologist Commnt No 08/25/18 04:43 463.24 ng/mlDDU (0-234) H 08/15/18 21:24 Sodium 136 mmol/L (137-145) L 08/25/18 04:43 Potassium 4.3 mmol/L (3.6-5.0) 08/25/18 04:43 Chloride 98.8 mmol/L (98-107) 08/25/18 04:43 Carbon Dioxide 26 mmol/L (22-30) 08/25/18 04:43 16 mmol/L 08/25/18 04:43 BUN 44 mg/dL (9-20) H 08/25/18 04:43 2.6 mg/dL (0.8-1.5) H 08/25/18 04:43 Estimated GFR 26 ml/min 08/25/18 04:43 17 % 08/25/18 04:43 Glucose 193 mg/dL (75-100) H 08/25/18 04:43 POC Glucose 167 (70-105) H 08/25/18 08:04 7.4 % (4-6) H 08/16/18 03:37 Lactic Acid 0.70 mmol/L (0.7-2.0) 08/20/18 04:53 Calcium 8.5 mg/dL (8.4-10.2) 08/25/18 04:43 Phosphorus 3.90 mg/dL (2.5-4.5) 08/25/18 04:43 Iron 30 ug/dL (49-181) L 08/16/18 13:52 TIBC 352 mcg/dL (250-450) 08/16/18 13:52 78.2 ng/mL (13.0-400.0) 08/18/18 08:34 0.40 mg/dL (0.1-1.2) 08/15/18 18:54 AST 25 units/L (5-40) 08/15/18 18:54 ALT 15 units/L (7-56) 08/15/18 18:54 74 units/L (35-129) 08/15/18 18:54 340 units/L (55-170) H 08/15/18 21:24 CK-MB (CK-2) 5.0 ng/mL (0.0-4.0) H 08/15/18 21:24 CK-MB (CK-2) Rel Index 1.4 (0-4) 08/15/18 21:24 0.026 ng/mL (0.00-0.029) 08/15/18 21:24 NT-Pro-B Natriuret Pep 877.6 pg/mL (0-900) 08/17/18 11:13 6.1 g/dL (6.1-8.1) 08/17/18 11:13 6.7 g/dL (6.3-8.2) 08/15/18 18:54 2.9 g/dL (3.8-4.8) L 08/17/18 11:13 0.9 % 08/15/18 18:54 0.4 g/dL (0.2-0.3) H 08/17/18 11:13 0.7 g/dL (0.5-0.9) 08/17/18 11:13 0.5 g/dL (0.2-0.5) 08/17/18 11:13 1.1 g/dL (0.8-1.7) 08/17/18 11:13 Abnorm Protein Band 1 see below 08/17/18 11:13 PEP Interpretation see below H 08/17/18 11:13 Triglycerides 140 mg/dL (2-149) 08/16/18 03:37 Cholesterol 147 mg/dL (50-199) 08/16/18 03:37 88 mg/dL (50-130) 08/16/18 03:37 37 mg/dL (40-59) L 08/16/18 03:37 3.97 % 08/16/18 03:37 Straw (Yellow) 08/17/18 04:00 Clear (Clear) 08/17/18 04:00 7.0 (5.0-7.0) 08/17/18 04:00 Ur Specific Marshall 1.006 (1.003-1.030) 08/17/18 04:00 100 mg/dl mg/dL (Negative) 08/17/18 04:00 Neg mg/dL (Negative) 08/17/18 04:00 Neg mg/dL (Negative) 08/17/18 04:00 Neg (Negative) 08/17/18 04:00 Neg (Negative) 08/17/18 04:00 Neg (Negative) 08/17/18 04:00 < 2.0 mg/dL (<2.0) 08/17/18 04:00 Ur Leukocyte Esterase Neg (Negative) 08/17/18 04:00 < 1.0 /HPF (0.0-6.0) 08/17/18 04:00 2.0 /HPF (0.0-6.0) 08/17/18 04:00 U Epithel Cells (Auto) 1.0 /HPF (0-13.0) 08/15/18 18:47 1+ /HPF (Negative) 08/17/18 04:00 Few /HPF 08/15/18 18:47 None seen (None Seen) 08/17/18 04:00 800 ml 08/20/18 12:09 56.1 mg/dL (0.1-20.0) H 08/20/18 12:09 Height (in) 68.0 inches 08/20/18 12:09 Weight (lb) 348.8 lbs 08/20/18 12:09 6 08/20/18 12:09 Protein/Creatinin Ratio 3.53 08/17/18 04:00 132 mmol/L 08/17/18 04:00 106 08/17/18 04:00 79 mg/dL (5-11.8) H 08/17/18 04:00 Immunofix Electrophor see below 08/17/18 11:13 JELANI Screen Negative (Negative) 08/17/18 11:13 Double Strand DNA Ab <1 IU/mL (<=4) 08/17/18 11:13 144 mg/dL (82-185) 08/17/18 11:13 23 mg/dL (15-53) 08/17/18 11:13 RPR Nonreactive (Nonreactive) 08/17/18 11:13 Hepatitis A IgM Ab Non-reactive (NonReactive) 08/17/18 11:13 Hep Bs Antigen Non-reactive (Negative) 08/17/18 11:13 Hep B Core IgM Ab Non-reactive (NonReactive) 08/17/18 11:13 Non-reactive (NonReactive) 08/17/18 11:13 HIV 1&2 Antibody Rapid Non react (Non React) 08/17/18 11:13 Non react (Non React) 08/17/18 11:13 Active Medications - Current Medications Current Medications: Generic Name Dose Route Start Last Admin Trade Name Freq PRN Reason Stop Dose Admin Acetaminophen 650 mg 08/16/18 03:07 08/21/18 21:55 Tylenol PO 650 mg Q4H PRN Administration Pain MILD(1-3)/Fever >100.5/FRAIRE Albuterol 2.5 mg 08/16/18 03:07 Proventil IH Q4HRT PRN Shortness Of Breath Aspirin 81 mg 08/16/18 10:00 08/24/18 10:18 Baby Aspirin PO 81 mg QDAY ARLENE Administration Atorvastatin Calcium 40 mg 08/16/18 22:00 08/24/18 21:07 Lipitor PO 40 mg QHS ARLENE Administration Carvedilol 6.25 mg 08/17/18 12:00 08/24/18 21:07 Coreg PO 6.25 mg BID ARLENE Administration Cholecalciferol 5,000 unit 08/16/18 10:00 08/24/18 10:26 Vitamin D3 PO 5,000 unit DAILY ARLENE Administration Dextrose 50 ml 08/16/18 03:13 D50w (25gm) Syringe IV PRN PRN Hypoglycemia Docusate Sodium 100 mg 08/16/18 10:00 08/24/18 21:07 Colace PO 100 mg BID ARLENE Administration Epoetin Keon 10,000 unit 08/18/18 13:00 08/22/18 18:19 Procrit SUB-Q 10,000 unit MOWEFR ARLENE Administration Gabapentin 300 mg 08/16/18 22:00 08/24/18 21:07 Neurontin PO 300 mg QHS ARLENE Administration Heparin Sodium (Porcine) 5,000 unit 08/16/18 10:00 08/24/18 21:09 Heparin SUB-Q 5,000 unit Q12HR ARLENE Administration Hydralazine HCl 50 mg 08/16/18 14:00 08/25/18 06:35 Apresoline PO 50 mg Q8HR ARLENE Administration Ceftriaxone Sodium 1 gm in 50 mls @ 100 mls/hr 08/18/18 15:00 08/24/18 10:35 Rocephin/Ns 1 Gm/50 Ml IV 08/29/18 14:59 100 mls/hr Q24HR ARLENE Administration Protocol Insulin Human Lispro 0 unit 08/16/18 07:30 08/24/18 21:08 Humalog SUB-Q 3 unit ACHS ARLENE Administration Protocol Insulin Human Regular 5 units 08/16/18 07:30 08/24/18 17:52 Humulin R SUB-Q 5 units AC ARLENE Administration Nitroglycerin 0.4 mg 08/16/18 03:07 Nitrostat SL .Q5MIN PRN Chest Pain Ondansetron HCl 4 mg 08/16/18 03:07 08/16/18 16:39 Zofran IV 4 mg Q8H PRN Administration Nausea And Vomiting Oxycodone/Acetaminophen 1 tab 08/16/18 03:07 08/23/18 22:06 Percocet 5/325 PO 1 tab Q6H PRN Administration Pain, Moderate (4-6) Sodium Chloride 10 ml 08/16/18 10:00 08/24/18 21:08 Sodium Chloride Flush Syringe 10 Ml IV 10 ml BID ARLENE Administration Sodium Chloride 10 ml 08/16/18 03:07 08/16/18 06:17 Sodium Chloride Flush Syringe 10 Ml IV 10 ml PRN PRN Administration LINE FLUSH Nutrition/Malnutrition Assess - Dietary Evaluation Nutrition/Malnutrition Findings: Nutrition Notes Start: 08/16/18 09:25 Freq: Status: Active Protocol: Document 08/19/18 14:48 GHASSAN (Rec: 08/19/18 14:54 GHASSAN [id number]) Nutrition Notes Initial or Follow up Brief Note Current Diagnosis CKD(stage I-IV),Diabetes Other Pertinent Diagnosis Fluid retention in scrotum and BLE edema, wounds on toe, heel and leg Current Diet Cardiac/consistent CHO Labs/Tests Na 134 BUN 55 Cr 4.4 Pertinent Medications Reviewed [place] Body Weight (kg) 0 Subjective/Other Information Pt reports good appetite; has been consuming 75-100% of meals. Nutrition Intervention Revisit per MD consult or patient Sign Off request: <JACQUES WALSH - Last Filed: 08/26/18 21:12> Hospitalist Physical - Constitutional Vitals: Temp Pulse Resp BP Pulse Ox 97.7 F 63 16 166/83 93 08/26/18 19:32 08/26/18 19:32 08/26/18 19:32 08/26/18 19:32 08/26/18 19:32 Results - Labs CBC & Chem 7: 08/25/18 04:43 08/26/18 04:56 Labs: Laboratory Last Values WBC 5.3 K/mm3 (4.5-11.0) 08/25/18 04:43 RBC 3.41 M/mm3 (3.65-5.03) L 08/25/18 04:43 Hgb 9.1 gm/dl (11.8-15.2) L 08/25/18 04:43 Hct 28.0 % (35.5-45.6) L 08/25/18 04:43 MCV 82 fl (84-94) L 08/25/18 04:43 MCH 27 pg (28-32) L 08/25/18 04:43 MCHC 33 % (32-34) 08/25/18 04:43 RDW 17.0 % (13.2-15.2) H 08/25/18 04:43 Plt Count 133 K/mm3 (140-440) L 08/25/18 04:43 Lymph % (Auto) 26.6 % (13.4-35.0) 08/17/18 07:30 Cowley % (Auto) Mold Presser 08/25/18 04:43 Eos % (Auto) 6.6 % (0.0-4.3) H 08/17/18 07:30 Baso % (Auto) 1.1 % (0.0-1.8) 08/17/18 07:30 Lymph # 1.3 K/mm3 (1.2-5.4) 08/17/18 07:30 Cowley # 0.7 K/mm3 (0.0-0.8) 08/17/18 07:30 Eos # 0.3 K/mm3 (0.0-0.4) 08/17/18 07:30 Baso # 0.1 K/mm3 (0.0-0.1) 08/17/18 07:30 Add Manual Diff Complete 08/25/18 04:43 Total Counted 100 08/25/18 04:43 Seg Neutrophils % 51.7 % (40.0-70.0) 08/17/18 07:30 Seg Neuts % (Manual) 62.0 % (40.0-70.0) 08/25/18 04:43 0 % 08/25/18 04:43 23.0 % (13.4-35.0) 08/25/18 04:43 Reactive Lymphs % (Man) 0 % 08/25/18 04:43 10.0 % (0.0-7.3) H 08/25/18 04:43 4.0 % (0.0-4.3) 08/25/18 04:43 1.0 % (0.0-1.8) 08/25/18 04:43 0 % 08/25/18 04:43 0 % 08/25/18 04:43 0 % 08/25/18 04:43 0 % 08/25/18 04:43 Nucleated RBC % Not Reportable 08/25/18 04:43 Seg Neutrophils # 2.6 K/mm3 (1.8-7.7) 08/17/18 07:30 Seg Neutrophils # Man 3.3 K/mm3 (1.8-7.7) 08/25/18 04:43 Band Neutrophils # 0.0 K/mm3 08/25/18 04:43 1.2 K/mm3 (1.2-5.4) 08/25/18 04:43 Abs React Lymphs (Man) 0.0 K/mm3 08/25/18 04:43 0.5 K/mm3 (0.0-0.8) 08/25/18 04:43 0.2 K/mm3 (0.0-0.4) 08/25/18 04:43 0.1 K/mm3 (0.0-0.1) 08/25/18 04:43 0.0 K/mm3 08/25/18 04:43 0.0 K/mm3 08/25/18 04:43 0.0 K/mm3 08/25/18 04:43 Blast Cells # 0.0 K/mm3 08/25/18 04:43 WBC Morphology Not Reportable 08/25/18 04:43 Hypersegmented Neuts Not Reportable 08/25/18 04:43 Hyposegmented Neuts Not Reportable 08/25/18 04:43 Hypogranular Neuts Not Reportable 08/25/18 04:43 Not Reportable 08/25/18 04:43 Not Reportable 08/25/18 04:43 Not Reportable 08/25/18 04:43 Not Reportable 08/25/18 04:43 Not Reportable 08/25/18 04:43 Not Reportable 08/25/18 04:43 Consistent w auto 08/25/18 04:43 Not Reportable 08/25/18 04:43 Plt Clumps, EDTA Not Reportable 08/25/18 04:43 Rare 08/25/18 04:43 Not Reportable 08/25/18 04:43 Not Reportable 08/25/18 04:43 Plt Morphology Comment Not Reportable 08/25/18 04:43 RBC Morphology Not Reportable 08/25/18 04:43 Dimorphic RBCs Not Reportable 08/25/18 04:43 Not Reportable 08/25/18 04:43 Not Reportable 08/25/18 04:43 1+ 08/25/18 04:43 1+ 08/25/18 04:43 Not Reportable 08/25/18 04:43 Not Reportable 08/25/18 04:43 Not Reportable 08/25/18 04:43 Not Reportable 08/25/18 04:43 Not Reportable 08/25/18 04:43 Not Reportable 08/25/18 04:43 Not Reportable 08/25/18 04:43 Not Reportable 08/25/18 04:43 Not Reportable 08/25/18 04:43 Not Reportable 08/25/18 04:43 Not Reportable 08/25/18 04:43 Not Reportable 08/25/18 04:43 Not Reportable 08/25/18 04:43 Not Reportable 08/25/18 04:43 1+ 08/25/18 04:43 Acanthocytes (Spur) Not Reportable 08/25/18 04:43 Rouleaux Not Reportable 08/25/18 04:43 Not Reportable 08/25/18 04:43 Not Reportable 08/25/18 04:43 Not Reportable 08/25/18 04:43 Not Reportable 08/25/18 04:43 Hem Pathologist Commnt No 08/25/18 04:43 463.24 ng/mlDDU (0-234) H 08/15/18 21:24 Sodium 133 mmol/L (137-145) L 08/26/18 04:56 Potassium 4.0 mmol/L (3.6-5.0) 08/26/18 04:56 Chloride 96.3 mmol/L (98-107) L 08/26/18 04:56 Carbon Dioxide 26 mmol/L (22-30) 08/26/18 04:56 15 mmol/L 08/26/18 04:56 BUN 32 mg/dL (9-20) H 08/26/18 04:56 2.1 mg/dL (0.8-1.5) H 08/26/18 04:56 Estimated GFR 33 ml/min 08/26/18 04:56 15 % 08/26/18 04:56 Glucose 186 mg/dL (75-100) H 08/26/18 04:56 POC Glucose 206 (70-105) H 08/26/18 16:34 7.4 % (4-6) H 08/16/18 03:37 Lactic Acid 0.70 mmol/L (0.7-2.0) 08/20/18 04:53 Calcium 8.3 mg/dL (8.4-10.2) L 08/26/18 04:56 Phosphorus 3.90 mg/dL (2.5-4.5) 08/25/18 04:43 Iron 30 ug/dL (49-181) L 08/16/18 13:52 TIBC 352 mcg/dL (250-450) 08/16/18 13:52 78.2 ng/mL (13.0-400.0) 08/18/18 08:34 0.40 mg/dL (0.1-1.2) 08/15/18 18:54 AST 25 units/L (5-40) 08/15/18 18:54 ALT 15 units/L (7-56) 08/15/18 18:54 74 units/L (35-129) 08/15/18 18:54 340 units/L (55-170) H 08/15/18 21:24 CK-MB (CK-2) 5.0 ng/mL (0.0-4.0) H 08/15/18 21:24 CK-MB (CK-2) Rel Index 1.4 (0-4) 08/15/18 21:24 0.026 ng/mL (0.00-0.029) 08/15/18 21:24 NT-Pro-B Natriuret Pep 877.6 pg/mL (0-900) 08/17/18 11:13 6.1 g/dL (6.1-8.1) 08/17/18 11:13 6.7 g/dL (6.3-8.2) 08/15/18 18:54 2.9 g/dL (3.8-4.8) L 08/17/18 11:13 0.9 % 08/15/18 18:54 0.4 g/dL (0.2-0.3) H 08/17/18 11:13 0.7 g/dL (0.5-0.9) 08/17/18 11:13 0.5 g/dL (0.2-0.5) 08/17/18 11:13 1.1 g/dL (0.8-1.7) 08/17/18 11:13 Abnorm Protein Band 1 see below 08/17/18 11:13 PEP Interpretation see below H 08/17/18 11:13 Triglycerides 140 mg/dL (2-149) 08/16/18 03:37 Cholesterol 147 mg/dL (50-199) 08/16/18 03:37 88 mg/dL (50-130) 08/16/18 03:37 37 mg/dL (40-59) L 08/16/18 03:37 3.97 % 08/16/18 03:37 Straw (Yellow) 08/17/18 04:00 Clear (Clear) 08/17/18 04:00 7.0 (5.0-7.0) 08/17/18 04:00 Ur Specific Marshall 1.006 (1.003-1.030) 08/17/18 04:00 100 mg/dl mg/dL (Negative) 08/17/18 04:00 Neg mg/dL (Negative) 08/17/18 04:00 Neg mg/dL (Negative) 08/17/18 04:00 Neg (Negative) 08/17/18 04:00 Neg (Negative) 08/17/18 04:00 Neg (Negative) 08/17/18 04:00 < 2.0 mg/dL (<2.0) 08/17/18 04:00 Ur Leukocyte Esterase Neg (Negative) 08/17/18 04:00 < 1.0 /HPF (0.0-6.0) 08/17/18 04:00 2.0 /HPF (0.0-6.0) 08/17/18 04:00 U Epithel Cells (Auto) 1.0 /HPF (0-13.0) 08/15/18 18:47 1+ /HPF (Negative) 08/17/18 04:00 Few /HPF 08/15/18 18:47 None seen (None Seen) 08/17/18 04:00 Ur Random Creatinine See scanned report 08/17/18 10:40 U Random Total Protein See scanned report 08/17/18 10:40 800 ml 08/20/18 12:09 56.1 mg/dL (0.1-20.0) H 08/20/18 12:09 Height (in) 68.0 inches 08/20/18 12:09 Weight (lb) 348.8 lbs 08/20/18 12:09 6 08/20/18 12:09 Protein/Creatinin Ratio See scanned report 08/17/18 10:40 132 mmol/L 08/17/18 04:00 106 08/17/18 04:00 79 mg/dL (5-11.8) H 08/17/18 04:00 U Abnormal Prot Band 1 See scanned report 08/17/18 10:40 U Abnormal Prot Band 2 See scanned report 08/17/18 10:40 U Abnormal Prot Band 3 See scanned report 08/17/18 10:40 Immunofix Electrophor see below 08/17/18 11:13 JELANI Screen Negative (Negative) 08/17/18 11:13 Double Strand DNA Ab <1 IU/mL (<=4) 08/17/18 11:13 144 mg/dL (82-185) 08/17/18 11:13 23 mg/dL (15-53) 08/17/18 11:13 RPR Nonreactive (Nonreactive) 08/17/18 11:13 Hepatitis A IgM Ab Non-reactive (NonReactive) 08/17/18 11:13 Hep Bs Antigen Non-reactive (Negative) 08/17/18 11:13 Hep B Core IgM Ab Non-reactive (NonReactive) 08/17/18 11:13 Non-reactive (NonReactive) 08/17/18 11:13 HIV 1&2 Antibody Rapid Non react (Non React) 08/17/18 11:13 Non react (Non React) 08/17/18 11:13 Active Medications - Current Medications Current Medications: Generic Name Dose Route Start Last Admin Trade Name Freq PRN Reason Stop Dose Admin Acetaminophen 650 mg 08/16/18 03:07 08/21/18 21:55 Tylenol PO 650 mg Q4H PRN Administration Pain MILD(1-3)/Fever >100.5/FRAIRE Albuterol 2.5 mg 08/16/18 03:07 Proventil IH Q4HRT PRN Shortness Of Breath Aspirin 81 mg 08/16/18 10:00 08/26/18 09:30 Baby Aspirin PO 81 mg QDAY ARLENE Administration Atorvastatin Calcium 40 mg 08/16/18 22:00 08/25/18 21:51 Lipitor PO 40 mg QHS ARLENE Administration Carvedilol 6.25 mg 08/17/18 12:00 08/26/18 09:38 Coreg PO 6.25 mg BID ARLENE Administration Cholecalciferol 5,000 unit 08/16/18 10:00 08/26/18 09:30 Vitamin D3 PO 5,000 unit DAILY ARLENE Administration Dextrose 50 ml 08/16/18 03:13 D50w (25gm) Syringe IV PRN PRN Hypoglycemia Docusate Sodium 100 mg 08/16/18 10:00 08/26/18 09:31 Colace PO 100 mg BID ARLENE Administration Epoetin [place] 10,000 unit 08/18/18 13:00 08/26/18 13:20 Procrit SUB-Q 10,000 unit MOWEFR ARLENE Administration Gabapentin 300 mg 08/16/18 22:00 08/25/18 21:51 Neurontin PO 300 mg QHS ARLENE Administration Heparin Sodium (Porcine) 5,000 unit 08/16/18 10:00 08/26/18 09:31 Heparin SUB-Q 5,000 unit Q12HR ARLENE Administration Hydralazine HCl 50 mg 08/16/18 14:00 08/26/18 16:23 Apresoline PO Not Given Q8HR ARLENE Ceftriaxone Sodium 1 gm in 50 mls @ 100 mls/hr 08/18/18 15:00 08/26/18 16:22 Rocephin/Ns 1 Gm/50 Ml IV 08/29/18 14:59 100 mls/hr Q24HR ARLENE Administration Protocol Sodium Chloride 100 mls @ 999 mls/hr 08/26/18 10:00 Nacl 0.9% IV JANE PRN Hypotension Sodium Chloride 100 mls @ 999 mls/hr 08/26/18 14:36 Nacl 0.9% IV JANE PRN Hypotension Insulin Human Lispro 0 unit 08/16/18 07:30 08/26/18 16:29 Humalog SUB-Q 3 unit ACHS ARLENE Administration Protocol Insulin Human Regular 5 units 08/16/18 07:30 08/26/18 16:23 Humulin R SUB-Q 5 units AC ARLENE Administration Nitroglycerin 0.4 mg 08/16/18 03:07 Nitrostat SL .Q5MIN PRN Chest Pain Ondansetron HCl 4 mg 08/16/18 03:07 08/16/18 16:39 Zofran IV 4 mg Q8H PRN Administration Nausea And Vomiting Oxycodone/Acetaminophen 1 tab 08/16/18 03:07 08/23/18 22:06 Percocet 5/325 PO 1 tab Q6H PRN Administration Pain, Moderate (4-6) Sodium Chloride 10 ml 08/16/18 10:00 08/26/18 09:39 Sodium Chloride Flush Syringe 10 Ml IV 10 ml BID ARLENE Administration Sodium Chloride 10 ml 08/16/18 03:07 08/16/18 06:17 Sodium Chloride Flush Syringe 10 Ml IV 10 ml PRN PRN Administration LINE FLUSH Nutrition/Malnutrition Assess - Dietary Evaluation Nutrition/Malnutrition Findings: Nutrition Notes Start: 08/16/18 09:25 Freq: Status: Active Protocol: Document 08/19/18 14:48 GHASSAN (Rec: 08/19/18 14:54 GHASSAN [email or web address]) Nutrition Notes Initial or Follow up Brief Note Current Diagnosis CKD(stage I-IV),Diabetes Other Pertinent Diagnosis Fluid retention in scrotum and BLE edema, wounds on toe, heel and leg Current Diet Cardiac/consistent CHO Labs/Tests Na 134 BUN 55 Cr 4.4 Pertinent Medications Reviewed [place] Body Weight (kg) 0 Subjective/Other Information Pt reports good appetite; has been consuming 75-100% of meals. Nutrition Intervention Revisit per MD consult or patient Sign Off request:
--- NOTE | 2018-08-25 11:39 | Progress Note ---
Assessment and Plan Severe renal failure, likely ESRD, dialysis dependent: -Renal function reviewed. Serum creatinine 2.6 today, yesterday was 2.3 -First hemodialysis treatment was on 08/22/18, second was on 08/23/18, receiving third hemodialysis treatment today -Secondary GN workup was negative -Renal ultrasound on 08/16/18- Chronic medical renal disease. No Hydronephrosis. -No ACEI or ARB due to advanced renal failure -Renally dose all medications -Avoid Nephrotoxic agents -Strict I/O's monitoring -Mckeon Catheter: None present -Will monitor for renal recovery Congestive Diastolic heart failure -Echo- LVEF is 55-60% -S/P IV Lasix -UF with HD -Cardiology onboard Anemia of chronic disease due to CKD: -On Epogen 10,000 units SQ every M,W,F -Monitor H/H Essential Hypertension: - Continue on current regimen - Adjust medications as needed Diabetes Mellitus type 2 on insulin: -On insulin as per primary team Subjective Date of service: 08/25/18 Principal diagnosis: CHF; CKD;; HANSEN; Elevated d-dimer; Essential HTN; Morbid obesity; MARBELLA Interval history: Patient seen in dialysis unit, tolerating HD well. Objective - Vital Signs Vital signs: Vital Signs - 12hr 08/25/18 08/25/18 08/25/18 01:04 04:07 06:35 Temperature 97.4 F L Pulse Rate 89 66 68 Respiratory 17 20 Rate Blood Pressure 111/48 124/56 O2 Sat by Pulse 99 95 Oximetry - General Appearance General appearance: well-developed, appears stated age, fatigue EENT: ATNC, PERRL, hearing intact, vision intact Neck: no JVD, supple Respiratory: Present: Decreased Breath Sounds Cardiology: S1S2 Gastrointestinal: normoactive bowel sounds Integumentary: warm and dry Neurologic: alert and oriented x3 Musculoskeletal: other (2-3+ edema to BLE) - Lab 08/25/18 04:43 08/25/18 04:43 Most recent lab results Calcium 8.5 mg/dL (8.4-10.2) 08/25/18 04:43 Phosphorus 3.90 mg/dL (2.5-4.5) 08/25/18 04:43 56.1 mg/dL (0.1-20.0) H 08/20/18 12:09 132 mmol/L 08/17/18 04:00 79 mg/dL (5-11.8) H 08/17/18 04:00 Medications & Allergies - Medications Allergies/Adverse Reactions: Allergies canagliflozin [From Invokana] Allergy (Verified 08/15/18 17:49) Unknown IV CONTRAST DYE Allergy (Uncoded 08/15/18 17:49) Unknown Home Medications: Home Medications Medication Instructions Recorded Confirmed Last Taken Type Acetaminophen [Acetaminophen ER] 650 mg PO Q8HR PRN 08/16/18 08/16/18 Unknown History Amlodipine Besylate/Benazepril 1 each PO QDAY 08/16/18 08/16/18 Unknown History [Lotrel 10-40 mg] AtorvaSTATin [Lipitor] 40 mg PO QHS 08/16/18 08/16/18 Unknown History Cholecalciferol (Vitamin D3) 5,000 unit PO DAILY 08/16/18 08/16/18 Unknown History [Vitamin D3 5,000 UNIT] Doxylamine Succinate [Unisom] 25 mg PO QHS 08/16/18 08/16/18 Unknown History Gabapentin [Neurontin] 300 mg PO QHS 08/16/18 08/16/18 Unknown History Insulin Regular, Human [Humulin R 90 unit SQ BID 08/16/18 08/16/18 Unknown History U-500 Kwikpen] Loratadine [Claritin] 10 mg PO DAILY PRN 08/16/18 08/16/18 Unknown History Melatonin [Melatonin 3MG TAB] 3 mg PO QHS 08/16/18 08/16/18 Unknown History Niacin [Niacor] 500 mg PO DAILY 08/16/18 08/16/18 Unknown History Omeprazole 20 mg PO DAILY PRN 08/16/18 08/16/18 Unknown History Triamcinolone Acetonide [Nasacort 10.8 ml NS DAILY 08/16/18 08/16/18 Unknown History SPRAY] Active Medications: Generic Name Dose Route Start Last Admin Trade Name Freq PRN Reason Stop Dose Admin Acetaminophen 650 mg 08/16/18 03:07 08/21/18 21:55 Tylenol PO 650 mg Q4H PRN Administration Pain MILD(1-3)/Fever >100.5/FRAIRE Albuterol 2.5 mg 08/16/18 03:07 Proventil IH Q4HRT PRN Shortness Of Breath Aspirin 81 mg 08/16/18 10:00 08/24/18 10:18 Baby Aspirin PO 81 mg QDAY ARLENE Administration Atorvastatin Calcium 40 mg 08/16/18 22:00 08/24/18 21:07 Lipitor PO 40 mg QHS ARLENE Administration Carvedilol 6.25 mg 08/17/18 12:00 08/24/18 21:07 Coreg PO 6.25 mg BID ARLENE Administration Cholecalciferol 5,000 unit 08/16/18 10:00 08/24/18 10:26 Vitamin D3 PO 5,000 unit DAILY ARLENE Administration Dextrose 50 ml 08/16/18 03:13 D50w (25gm) Syringe IV PRN PRN Hypoglycemia Docusate Sodium 100 mg 08/16/18 10:00 08/24/18 21:07 Colace PO 100 mg BID ARLENE Administration Epoetin Keon 10,000 unit 08/18/18 13:00 08/22/18 18:19 Procrit SUB-Q 10,000 unit MOWEFR ARLENE Administration Gabapentin 300 mg 08/16/18 22:00 08/24/18 21:07 Neurontin PO 300 mg QHS ARLENE Administration Heparin Sodium (Porcine) 5,000 unit 08/16/18 10:00 08/24/18 21:09 Heparin SUB-Q 5,000 unit Q12HR ARLENE Administration Hydralazine HCl 50 mg 08/16/18 14:00 08/25/18 06:35 Apresoline PO 50 mg Q8HR ARLENE Administration Ceftriaxone Sodium 1 gm in 50 mls @ 100 mls/hr 08/18/18 15:00 08/24/18 10:35 Rocephin/Ns 1 Gm/50 Ml IV 08/29/18 14:59 100 mls/hr Q24HR ARLENE Administration Protocol Insulin Human Lispro 0 unit 08/16/18 07:30 08/24/18 21:08 Humalog SUB-Q 3 unit ACHS ARLENE Administration Protocol Insulin Human Regular 5 units 08/16/18 07:30 08/24/18 17:52 Humulin R SUB-Q 5 units AC ARLENE Administration Nitroglycerin 0.4 mg 08/16/18 03:07 Nitrostat SL .Q5MIN PRN Chest Pain Ondansetron HCl 4 mg 08/16/18 03:07 08/16/18 16:39 Zofran IV 4 mg Q8H PRN Administration Nausea And Vomiting Oxycodone/Acetaminophen 1 tab 08/16/18 03:07 08/23/18 22:06 Percocet 5/325 PO 1 tab Q6H PRN Administration Pain, Moderate (4-6) Sodium Chloride 10 ml 08/16/18 10:00 08/24/18 21:08 Sodium Chloride Flush Syringe 10 Ml IV 10 ml BID ARLENE Administration Sodium Chloride 10 ml 08/16/18 03:07 08/16/18 06:17 Sodium Chloride Flush Syringe 10 Ml IV 10 ml PRN PRN Administration LINE FLUSH
--- NOTE | 2018-08-25 12:26 | Progress Note ---
Assessment and Plan Cont present cardiac management. Volume optimization per nephrology. The patient has been seen in conjunction with Dr. Fairbanks who agrees with the assessment and plan of care. - Patient Problems (1) Acute heart failure with preserved ejection fraction Current Visit: Yes Status: Acute (2) Acute on chronic renal failure Current Visit: Yes Status: Acute (3) Anasarca Current Visit: Yes Status: Acute (4) Essential hypertension Current Visit: Yes Status: Chronic (5) Hyperlipemia, mixed Current Visit: Yes Status: Chronic (6) Morbid obesity Current Visit: Yes Status: Chronic (7) MARBELLA (obstructive sleep apnea) Current Visit: Yes Status: Chronic (8) Anemia Current Visit: Yes Status: Acute Qualifiers: Anemia type: unspecified type Qualified Code(s): D64.9 - Anemia, unspecified (9) Thrombocytopenia Current Visit: Yes Status: Acute (10) Chronic venous insufficiency Current Visit: Yes Status: Chronic Subjective Date of service: 08/25/18 Principal diagnosis: CHF; CKD;; HANSEN; Elevated d-dimer; Essential HTN; Morbid obesity; MARBELLA Interval history: pt resting comfortably in bed, BLE edema and scrotal edema persist, undergoing HD. Objective Last Vital Signs Temp 97.4 F L 08/25/18 04:07 Pulse 68 08/25/18 06:35 Resp 20 08/25/18 04:07 BP 124/56 08/25/18 06:35 Pulse Ox 95 08/25/18 04:07 - Physical Examination General: Appears Well HEENT: Positive: PERRL, Mucus Membranes Moist Neck: Positive: neck supple, trachea midline Cardiac: Positive: Reg Rate and Rhythm, S1/S2 Lungs: Positive: Decreased Breath Sounds Neuro: Positive: Grossly Intact Abdomen: Positive: Soft, Active Bowel Sounds. Negative: Tender, Distended Skin: Positive: Clear Incision: Cardiac Cath Site Musculoskeletal: No Pain, Normal Range of Motion Extremities: Present: normal, edema, +1 Edema, Other (scrotal edema) - Labs and Meds CBC 08/25/18 Range/Units 04:43 WBC 5.3 (4.5-11.0) K/mm3 RBC 3.41 L (3.65-5.03) M/mm3 Hgb 9.1 L (11.8-15.2) gm/dl Hct 28.0 L (35.5-45.6) % Plt Count 133 L (140-440) K/mm3 Comprehensive Metabolic Panel 08/17/18 08/25/18 Range/Units 10:40 04:43 Sodium 136 L (137-145) mmol/L Potassium 4.3 (3.6-5.0) mmol/L Chloride 98.8 (98-107) mmol/L Carbon Dioxide 26 (22-30) mmol/L BUN 44 H (9-20) mg/dL Creatinine 2.6 H (0.8-1.5) mg/dL Glucose 193 H (75-100) mg/dL Calcium 8.5 (8.4-10.2) mg/dL Albumin See scanned report - Imaging and Cardiology EKG: image reviewed (sinus rhythm at 76 bpm) Echo: report reviewed (2015 normal LV function.Positive bubble study PFO), other (08/17/2018 normal LV function and diastolic dysfunction mild to moderate LVH no significant regurgitations) - Allied health notes Allied health notes reviewed: nursing
[2018-08-25] MEDS ORDERED: NACL 0.9 (PRIMING MACHINE ONLY DIALYSIS) MC ONE (12:49)
[2018-08-25] MEDS: PROCRIT SUB-Q SCH (13:00)
--- NOTE | 2018-08-25 14:11 | Progress Note ---
Assessment and Plan Patient sleeping at this time on BIPAP. O2 sat 97%. Patient sleeping soundly. No acute respiratory distress. - Patient Problems (1) CHF (congestive heart failure) Current Visit: Yes Status: Acute Qualifiers: Heart failure type: diastolic Heart failure chronicity: acute Qualified Code(s): I50.31 - Acute diastolic (congestive) heart failure Plan to address problem: Management as per cardiology. (2) CKD (chronic kidney disease) Current Visit: Yes Status: Acute Qualifiers: Chronic kidney disease stage: stage 3 (moderate) Qualified Code(s): N18.3 - Chronic kidney disease, stage 3 (moderate) Plan to address problem: Management as per nephrology. (3) HANSEN (dyspnea on exertion) Current Visit: Yes Status: Acute Plan to address problem: Albuterol aerosol treatments q 6 hours prn for shortness of breath. O2 3 litres via nasal canula BIPAP during night time and PRN during day time for shortness of breath. Continue S/C Heparin. (4) Elevated d-dimer Current Visit: Yes Status: Acute Plan to address problem: Venous doppler studies reported negative for DVT. Perfusion lung scan reported low probabily for pulmonary emboli. Continue S/C heparin. (5) Essential hypertension Current Visit: Yes Status: Chronic Plan to address problem: Management as per primary care. (6) Morbid obesity Current Visit: Yes Status: Chronic Plan to address problem: Recommend to loose weight. Exercise and diet. (7) Sleep apnea with use of continuous positive airway pressure (CPAP) Current Visit: Yes Status: Acute Plan to address problem: Continue BIPAP as using at home. Subjective Date of service: 08/25/18 Principal diagnosis: CHF; CKD;; HANSEN; Elevated d-dimer; Essential HTN; Morbid obesity; MARBELLA Interval history: Patient sleeping at this time on BIPAP. O2 sat 97%. Patient sleeping soundly. No acute respiratory distress. Objective Vital Signs - 12hr 08/25/18 08/25/18 08/25/18 04:07 06:35 10:00 Temperature 97.4 F L 97.4 F L Pulse Rate 66 68 76 Respiratory 20 18 Rate Blood Pressure 111/48 124/56 153/76 O2 Sat by Pulse 95 Oximetry 08/25/18 08/25/18 08/25/18 10:15 10:30 10:45 Temperature Pulse Rate 76 76 77 Respiratory Rate Blood Pressure 129/63 120/57 112/49 O2 Sat by Pulse Oximetry 08/25/18 08/25/18 08/25/18 11:00 11:15 11:30 Temperature Pulse Rate 76 76 78 Respiratory Rate Blood Pressure 119/50 128/38 109/48 O2 Sat by Pulse Oximetry 08/25/18 08/25/18 08/25/18 11:45 12:00 12:15 Temperature Pulse Rate 80 80 81 Respiratory Rate Blood Pressure 124/42 104/41 119/48 O2 Sat by Pulse Oximetry 08/25/18 08/25/18 08/25/18 12:30 12:45 13:00 Temperature Pulse Rate 81 78 75 Respiratory Rate Blood Pressure 119/48 124/58 128/60 O2 Sat by Pulse Oximetry 08/25/18 13:10 Temperature 97.6 F Pulse Rate 79 Respiratory 18 Rate Blood Pressure 133/65 O2 Sat by Pulse Oximetry Constitutional: no acute distress, alert, other (Morbidly Obese middle aged CM) Eyes: non-icteric ENT: oropharynx moist, other (mallampati 4) Neck: supple, no JVD, other (large neck circumference) Effort: mildly labored Ascultation: Bilateral: diminished breath sounds, rhonchi (scant in bases) Percussion: Bilateral: not dull Cardiovascular: regular rate and rhythm Gastrointestinal: normoactive bowel sounds, soft, non-tender, other (protuberant) Integumentary: cellulitis, other (Cellulitis and wounds in both lower legs.) Extremities: no cyanosis, pink and warm, pulses normal, edema (trace to 1+) Neurologic: normal mental status, non-focal exam, pupils equal and round, CN II- XII normal Psychiatric: mood appropriate, affect normal CBC and BMP: 08/25/18 04:43 08/25/18 04:43 ABG, PT/INR, D-dimer: PT/INR, D-dimer 463.24 ng/mlDDU (0-234) H 08/15/18 21:24 Abnormal lab findings: Abnormal Labs 08/15/18 08/15/18 08/15/18 18:02 18:54 18:54 WBC RBC 3.61 L Hgb 9.8 L Hct 30.1 L MCV MCH 27 L RDW 16.8 H Plt Count [place] % (Auto) 10.7 H Eos % (Auto) 5.9 H Seg Neuts % (Manual) Lymphocytes % (Manual) Monocytes % (Manual) Eosinophils % (Manual) Basophils % (Manual) Seg Neutrophils # Man D-Dimer Sodium Chloride 107.7 H BUN 25 H Creatinine 2.5 H Glucose 159 H POC Glucose 124 H Hemoglobin A1c Phosphorus Iron Total Creatine Kinase CK-MB (CK-2) Albumin 3.2 L Nyzcl-6-Jgdvfiotb PEP Interpretation HDL Cholesterol Urine Creatinine Urine Total Protein 08/15/18 08/15/18 08/16/18 21:24 21:24 03:37 WBC RBC Hgb Hct MCV MCH RDW Plt Count [place] % (Auto) Eos % (Auto) Seg Neuts % (Manual) Lymphocytes % (Manual) Monocytes % (Manual) Eosinophils % (Manual) Basophils % (Manual) Seg Neutrophils # Man D-Dimer 463.24 H Sodium Chloride BUN Creatinine Glucose POC Glucose Hemoglobin A1c 7.4 H Phosphorus Iron Total Creatine Kinase 340 H CK-MB (CK-2) 5.0 H Albumin Oyfoe-9-Vdhnrndmb PEP Interpretation HDL Cholesterol Urine Creatinine Urine Total Protein 08/16/18 08/16/18 08/16/18 03:37 07:54 12:01 WBC RBC Hgb Hct MCV MCH RDW Plt Count [place] % (Auto) Eos % (Auto) Seg Neuts % (Manual) Lymphocytes % (Manual) Monocytes % (Manual) Eosinophils % (Manual) Basophils % (Manual) Seg Neutrophils # Sadi D-Dimer Sodium Chloride BUN Creatinine Glucose POC Glucose 113 H 179 H Hemoglobin A1c Phosphorus Iron Total Creatine Kinase CK-MB (CK-2) Albumin Aojgj-2-Rryrihvwt PEP Interpretation HDL Cholesterol 37 L Urine Creatinine Urine Total Protein 08/16/18 08/16/18 08/16/18 13:52 17:44 21:21 WBC RBC Hgb Hct MCV MCH RDW Plt Count [place] % (Auto) Eos % (Auto) Seg Neuts % (Manual) Lymphocytes % (Manual) Monocytes % (Manual) Eosinophils % (Manual) Basophils % (Manual) Seg Neutrophils # Man D-Dimer Sodium Chloride BUN Creatinine Glucose POC Glucose 221 H 165 H Hemoglobin A1c Phosphorus Iron 30 L Total Creatine Kinase CK-MB (CK-2) Albumin Glvoz-2-Yllrbjxia PEP Interpretation HDL Cholesterol Urine Creatinine Urine Total Protein 08/17/18 08/17/18 08/17/18 04:00 07:30 07:30 WBC RBC Hgb 10.3 L Hct 31.5 L MCV 82 L MCH 27 L RDW 16.8 H Plt Count [place] % (Auto) 14.0 H Eos % (Auto) 6.6 H Seg Neuts % (Manual) Lymphocytes % (Manual) Monocytes % (Manual) Eosinophils % (Manual) Basophils % (Manual) Seg Neutrophils # Sadi D-Dimer Sodium Chloride BUN 32 H Creatinine 2.9 H Glucose 180 H POC Glucose Hemoglobin A1c Phosphorus Iron Total Creatine Kinase CK-MB (CK-2) Albumin Acgfs-1-Mkofofwpl PEP Interpretation HDL Cholesterol Urine Creatinine 22.4 H Urine Total Protein 79 H 08/17/18 08/17/18 08/17/18 07:34 11:13 12:17 WBC RBC Hgb Hct MCV MCH RDW Plt Count [place] % (Auto) Eos % (Auto) Seg Neuts % (Manual) Lymphocytes % (Manual) Monocytes % (Manual) Eosinophils % (Manual) Basophils % (Manual) Seg Neutrophils # Sadi D-Dimer Sodium Chloride BUN Creatinine Glucose POC Glucose 169 H 207 H Hemoglobin A1c Phosphorus Iron Total Creatine Kinase CK-MB (CK-2) Albumin 2.9 L Vfprf-9-Hipkbwvbn 0.4 H PEP Interpretation see below H HDL Cholesterol Urine Creatinine Urine Total Protein 08/17/18 08/17/18 08/18/18 16:36 21:17 07:05 WBC RBC Hgb Hct MCV MCH RDW Plt Count [place] % (Auto) Eos % (Auto) Seg Neuts % (Manual) Lymphocytes % (Manual) Monocytes % (Manual) Eosinophils % (Manual) Basophils % (Manual) Seg Neutrophils # Sadi D-Dimer Sodium 134 L Chloride 95.9 L BUN 43 H Creatinine 3.8 H Glucose 150 H POC Glucose 184 H 209 H Hemoglobin A1c Phosphorus Iron Total Creatine Kinase CK-MB (CK-2) Albumin Fodni-1-Mdnoahvdw PEP Interpretation HDL Cholesterol Urine Creatinine Urine Total Protein 08/18/18 08/18/18 08/18/18 07:53 08:34 11:53 WBC RBC Hgb 10.8 L Hct 33.8 L MCV MCH 27 L RDW 16.3 H Plt Count [place] % (Auto) Eos % (Auto) Seg Neuts % (Manual) Lymphocytes % (Manual) Monocytes % (Manual) Eosinophils % (Manual) Basophils % (Manual) Seg Neutrophils # Sadi D-Dimer Sodium Chloride BUN Creatinine Glucose POC Glucose 139 H 191 H Hemoglobin A1c Phosphorus Iron Total Creatine Kinase CK-MB (CK-2) Albumin Vwlrv-0-Gnlnhdvtr PEP Interpretation HDL Cholesterol Urine Creatinine Urine Total Protein 08/18/18 08/18/18 08/19/18 15:54 20:49 05:28 WBC RBC Hgb 9.7 L Hct 30.1 L MCV 82 L MCH 26 L RDW 16.6 H Plt Count 136 L [place] % (Auto) Eos % (Auto) Seg Neuts % (Manual) Lymphocytes % (Manual) Monocytes % (Manual) Eosinophils % (Manual) Basophils % (Manual) Seg Neutrophils # Man D-Dimer Sodium Chloride BUN Creatinine Glucose POC Glucose 150 H 138 H Hemoglobin A1c Phosphorus Iron Total Creatine Kinase CK-MB (CK-2) Albumin Cdyir-0-Phrrttuyo PEP Interpretation HDL Cholesterol Urine Creatinine Urine Total Protein 08/19/18 08/19/18 08/19/18 05:28 07:43 11:57 WBC RBC Hgb Hct MCV MCH RDW Plt Count [place] % (Auto) Eos % (Auto) Seg Neuts % (Manual) Lymphocytes % (Manual) Monocytes % (Manual) Eosinophils % (Manual) Basophils % (Manual) Seg Neutrophils # Man D-Dimer Sodium 134 L Chloride 96.2 L BUN 55 H Creatinine 4.4 H Glucose 118 H POC Glucose 162 H 280 H Hemoglobin A1c Phosphorus Iron Total Creatine Kinase CK-MB (CK-2) Albumin Nqhwu-0-Lwqwbjobv PEP Interpretation HDL Cholesterol Urine Creatinine Urine Total Protein 08/19/18 08/19/18 08/20/18 15:41 21:44 04:53 WBC 3.5 L RBC 3.58 L Hgb 9.4 L Hct 29.5 L MCV 83 L MCH 26 L RDW 16.4 H Plt Count 121 L [place] % (Auto) Eos % (Auto) Seg Neuts % (Manual) Lymphocytes % (Manual) Monocytes % (Manual) 16.0 H Eosinophils % (Manual) Basophils % (Manual) 3.0 H Seg Neutrophils # Man 1.6 L D-Dimer Sodium Chloride BUN Creatinine Glucose POC Glucose 167 H 234 H Hemoglobin A1c Phosphorus Iron Total Creatine Kinase CK-MB (CK-2) Albumin Rslum-1-Zbcdcsjxf PEP Interpretation HDL Cholesterol Urine Creatinine Urine Total Protein 08/20/18 08/20/18 08/20/18 04:53 08:13 12:09 WBC RBC Hgb Hct MCV MCH RDW Plt Count [place] % (Auto) Eos % (Auto) Seg Neuts % (Manual) Lymphocytes % (Manual) Monocytes % (Manual) Eosinophils % (Manual) Basophils % (Manual) Seg Neutrophils # Sadi D-Dimer Sodium 136 L Chloride BUN 57 H Creatinine 3.3 H Glucose 136 H POC Glucose 124 H Hemoglobin A1c Phosphorus 5.50 H Iron Total Creatine Kinase CK-MB (CK-2) Albumin Bblac-1-Vpdmmdkcg PEP Interpretation HDL Cholesterol Urine Creatinine 56.1 H Urine Total Protein 08/20/18 08/20/18 08/20/18 12:49 18:26 20:53 WBC RBC Hgb Hct MCV MCH RDW Plt Count [place] % (Auto) Eos % (Auto) Seg Neuts % (Manual) Lymphocytes % (Manual) Monocytes % (Manual) Eosinophils % (Manual) Basophils % (Manual) Seg Neutrophils # Sadi D-Dimer Sodium Chloride BUN Creatinine Glucose POC Glucose 145 H 175 H 184 H Hemoglobin A1c Phosphorus Iron Total Creatine Kinase CK-MB (CK-2) Albumin Cafho-6-Maeyppwwb PEP Interpretation HDL Cholesterol Urine Creatinine Urine Total Protein 08/21/18 08/21/18 08/21/18 04:28 04:28 08:58 WBC 3.8 L RBC 3.42 L Hgb 9.2 L Hct 28.4 L MCV 83 L MCH 27 L RDW 16.4 H Plt Count 126 L [place] % (Auto) Eos % (Auto) Seg Neuts % (Manual) Lymphocytes % (Manual) Monocytes % (Manual) 15.0 H Eosinophils % (Manual) Basophils % (Manual) Seg Neutrophils # Sadi D-Dimer Sodium 134 L Chloride 96.5 L BUN 59 H Creatinine 3.4 H Glucose 190 H POC Glucose 159 H Hemoglobin A1c Phosphorus 5.10 H Iron Total Creatine Kinase CK-MB (CK-2) Albumin Jwvbf-8-Xponwurlg PEP Interpretation HDL Cholesterol Urine Creatinine Urine Total Protein 08/21/18 08/21/18 08/21/18 12:25 17:10 21:43 WBC RBC Hgb Hct MCV MCH RDW Plt Count [place] % (Auto) Eos % (Auto) Seg Neuts % (Manual) Lymphocytes % (Manual) Monocytes % (Manual) Eosinophils % (Manual) Basophils % (Manual) Seg Neutrophils # Sadi D-Dimer Sodium Chloride BUN Creatinine Glucose POC Glucose 222 H 152 H 150 H Hemoglobin A1c Phosphorus Iron Total Creatine Kinase CK-MB (CK-2) Albumin Wnopx-5-Qaliotbmx PEP Interpretation HDL Cholesterol Urine Creatinine Urine Total Protein 08/22/18 08/22/18 08/22/18 04:50 04:51 08:08 WBC 3.7 L RBC 3.37 L Hgb 9.0 L Hct 27.8 L MCV 83 L MCH 27 L RDW 16.9 H Plt Count 124 L [place] % (Auto) Eos % (Auto) Seg Neuts % (Manual) Lymphocytes % (Manual) Monocytes % (Manual) 13.0 H Eosinophils % (Manual) 11.0 H Basophils % (Manual) Seg Neutrophils # Man 1.6 L D-Dimer Sodium 135 L Chloride 97.4 L BUN 64 H Creatinine 3.5 H Glucose 114 H POC Glucose 117 H Hemoglobin A1c Phosphorus 4.90 H Iron Total Creatine Kinase CK-MB (CK-2) Albumin Fsafs-9-Nsuuhjkyw PEP Interpretation HDL Cholesterol Urine Creatinine Urine Total Protein 08/22/18 08/22/18 08/23/18 14:48 21:36 05:09 WBC 4.3 L RBC 3.60 L Hgb 9.6 L Hct 29.6 L MCV 82 L MCH 27 L RDW 16.6 H Plt Count 134 L [place] % (Auto) Eos % (Auto) Seg Neuts % (Manual) 38.0 L Lymphocytes % (Manual) 51.0 H Monocytes % (Manual) 8.0 H Eosinophils % (Manual) Basophils % (Manual) Seg Neutrophils # Man 1.6 L D-Dimer Sodium Chloride BUN Creatinine Glucose POC Glucose 211 H 268 H Hemoglobin A1c Phosphorus Iron Total Creatine Kinase CK-MB (CK-2) Albumin Glglv-1-Ypemhdkyd PEP Interpretation HDL Cholesterol Urine Creatinine Urine Total Protein 08/23/18 08/23/18 08/23/18 05:09 07:44 14:02 WBC RBC Hgb Hct MCV MCH RDW Plt Count [place] % (Auto) Eos % (Auto) Seg Neuts % (Manual) Lymphocytes % (Manual) Monocytes % (Manual) Eosinophils % (Manual) Basophils % (Manual) Seg Neutrophils # Man D-Dimer Sodium Chloride BUN 45 H Creatinine 2.6 H Glucose 174 H POC Glucose 240 H 161 H Hemoglobin A1c Phosphorus Iron Total Creatine Kinase CK-MB (CK-2) Albumin Jrxle-5-Sqzgvxttl PEP Interpretation HDL Cholesterol Urine Creatinine Urine Total Protein 08/23/18 08/23/18 08/24/18 17:33 20:32 05:09 WBC RBC Hgb Hct MCV MCH RDW Plt Count [place] % (Auto) Eos % (Auto) Seg Neuts % (Manual) Lymphocytes % (Manual) Monocytes % (Manual) Eosinophils % (Manual) Basophils % (Manual) Seg Neutrophils # Sadi D-Dimer Sodium 135 L Chloride 97.4 L BUN 38 H Creatinine 2.3 H Glucose 183 H POC Glucose 217 H 208 H Hemoglobin A1c Phosphorus Iron Total Creatine Kinase CK-MB (CK-2) Albumin Sdqvn-3-Gkezihwqq PEP Interpretation HDL Cholesterol Urine Creatinine Urine Total Protein 08/24/18 08/24/18 08/24/18 07:49 11:32 16:44 WBC RBC Hgb Hct MCV MCH RDW Plt Count [place] % (Auto) Eos % (Auto) Seg Neuts % (Manual) Lymphocytes % (Manual) Monocytes % (Manual) Eosinophils % (Manual) Basophils % (Manual) Seg Neutrophils # Sadi D-Dimer Sodium Chloride BUN Creatinine Glucose POC Glucose 171 H 271 H 168 H Hemoglobin A1c Phosphorus Iron Total Creatine Kinase CK-MB (CK-2) Albumin Bndcd-6-Ztchvljaj PEP Interpretation HDL Cholesterol Urine Creatinine Urine Total Protein 08/24/18 08/25/18 08/25/18 20:54 04:43 04:43 WBC RBC 3.41 L Hgb 9.1 L Hct 28.0 L MCV 82 L MCH 27 L RDW 17.0 H Plt Count 133 L [place] % (Auto) Eos % (Auto) Seg Neuts % (Manual) Lymphocytes % (Manual) Monocytes % (Manual) 10.0 H Eosinophils % (Manual) Basophils % (Manual) Seg Neutrophils # Sadi D-Dimer Sodium 136 L Chloride BUN 44 H Creatinine 2.6 H Glucose 193 H POC Glucose 214 H Hemoglobin A1c Phosphorus Iron Total Creatine Kinase CK-MB (CK-2) Albumin Lwipc-2-Mwkguyame PEP Interpretation HDL Cholesterol Urine Creatinine Urine Total Protein 08/25/18 08/25/18 08:04 13:43 WBC RBC Hgb Hct MCV MCH RDW Plt Count [place] % (Auto) Eos % (Auto) Seg Neuts % (Manual) Lymphocytes % (Manual) Monocytes % (Manual) Eosinophils % (Manual) Basophils % (Manual) Seg Neutrophils # Sadi D-Dimer Sodium Chloride BUN Creatinine Glucose POC Glucose 167 H 193 H Hemoglobin A1c Phosphorus Iron Total Creatine Kinase CK-MB (CK-2) Albumin Nqrdh-1-Uynllydet PEP Interpretation HDL Cholesterol Urine Creatinine Urine Total Protein Allied health notes reviewed: nursing
[2018-08-25] MEDS: ROCEPHIN/NS 1 GM/50 ML 1 GM/50 ML BAG IV SCH (14:18)
[2018-08-25] MEDS: HEPARIN SUB-Q SCH ×2 (14:19→21:52)
[2018-08-25] MEDS: VITAMIN D3 PO SCH (14:19)
[2018-08-25] MEDS: HumuLIN R SUB-Q SCH ×3 (14:19→17:53)
[2018-08-25] MEDS: BABY ASPIRIN PO SCH (14:19)
[2018-08-25] MEDS: COREG PO SCH ×2 (14:19→21:51)
[2018-08-25] MEDS: COLACE PO SCH ×2 (14:19→21:51)
[2018-08-25] MEDS: HumaLOG SUB-Q SCH ×4 (14:20→21:52)
[2018-08-25] MEDS: SODIUM CHLORIDE FLUSH SYRINGE 10 ML IV SCH ×2 (14:21→21:52)
[2018-08-25] MEDS: NEURONTIN PO SCH (21:51)
[2018-08-26] MEDS: APRESOLINE PO SCH ×3 (05:29→22:04)
[2018-08-26 06:03] LABS: Calcium 8.3 mg/dL (8.4-10.2)
[2018-08-26] MEDS: BABY ASPIRIN PO SCH (09:30)
[2018-08-26] MEDS: VITAMIN D3 PO SCH (09:30)
[2018-08-26] MEDS: COLACE PO SCH ×2 (09:31→22:03)
[2018-08-26] MEDS: HEPARIN SUB-Q SCH ×2 (09:31→22:03)
[2018-08-26] MEDS: HumuLIN R SUB-Q SCH ×3 (09:34→16:23)
[2018-08-26] MEDS: HumaLOG SUB-Q SCH ×4 (09:35→22:05)
[2018-08-26] MEDS: COREG PO SCH ×2 (09:38→22:03)
[2018-08-26] MEDS: SODIUM CHLORIDE FLUSH SYRINGE 10 ML IV SCH ×2 (09:39→22:05)
[2018-08-26] MEDS ORDERED: NACL 0.9% 100 ML IV PRN ×2 (10:00→14:36)
--- NOTE | 2018-08-26 10:22 | Progress Note ---
Assessment and Plan Severe renal failure, likely ESRD, dialysis dependent: -HD today. Eval for need daily. -First hemodialysis treatment was on 08/22/18. -Secondary GN workup was negative -Renal ultrasound on 08/16/18- Chronic medical renal disease. No Hydronephrosis. -No ACEI or ARB due to advanced renal failure -Renally dose all medications -Avoid Nephrotoxic agents -Strict I/O's monitoring -Mckeon Catheter: None present -Will monitor for renal recovery Congestive Diastolic heart failure -Echo- LVEF is 55-60% -S/P IV Lasix -UF with HD -Cardiology onboard Anemia of chronic disease due to CKD: -On Epogen 10,000 units SQ every M,W,F -Monitor H/H Essential Hypertension: - Continue on current regimen - Adjust medications as needed Diabetes Mellitus type 2 on insulin: -On insulin as per primary team Patrick Fonseca MD [phone] Subjective Date of service: 08/26/18 Principal diagnosis: CHF; CKD;; HANSEN; Elevated d-dimer; Essential HTN; Morbid obesity; MARBELLA Interval history: Tolerated HD yesterday. Seen on HD. Objective - Exam Narrative Exam: GE: AAOX3, Obese HEENT: PERRLA Neck: Supple Chest: Coarse BS BL CVS: RRR Abd: Soft/Obese, BS+ Ext: 2-3 BLE edema Psyche: Appropriate mood - Vital Signs Vital signs: Vital Signs - 12hr 08/25/18 08/25/18 08/26/18 23:12 23:33 03:40 Temperature 98.0 F 97.5 F L Pulse Rate 64 65 72 Respiratory 18 18 20 Rate Blood Pressure 143/65 136/70 O2 Sat by Pulse 96 94 93 Oximetry 08/26/18 08/26/18 08/26/18 05:29 07:53 09:50 Temperature 97.8 F Pulse Rate 72 63 Respiratory 20 Rate Blood Pressure 136/70 117/58 O2 Sat by Pulse 91 93 Oximetry - Lab 08/25/18 04:43 08/26/18 04:56 Most recent lab results Calcium 8.3 mg/dL (8.4-10.2) L 08/26/18 04:56 Phosphorus 3.90 mg/dL (2.5-4.5) 08/25/18 04:43 56.1 mg/dL (0.1-20.0) H 08/20/18 12:09 132 mmol/L 08/17/18 04:00 79 mg/dL (5-11.8) H 08/17/18 04:00 Medications & Allergies - Medications Allergies/Adverse Reactions: Allergies canagliflozin [From Invokana] Allergy (Verified 08/15/18 17:49) Unknown IV CONTRAST DYE Allergy (Uncoded 08/15/18 17:49) Unknown Home Medications: Home Medications Medication Instructions Recorded Confirmed Last Taken Type Acetaminophen [Acetaminophen ER] 650 mg PO Q8HR PRN 08/16/18 08/16/18 Unknown History Amlodipine Besylate/Benazepril 1 each PO QDAY 08/16/18 08/16/18 Unknown History [Lotrel 10-40 mg] AtorvaSTATin [Lipitor] 40 mg PO QHS 08/16/18 08/16/18 Unknown History Cholecalciferol (Vitamin D3) 5,000 unit PO DAILY 08/16/18 08/16/18 Unknown History [Vitamin D3 5,000 UNIT] Doxylamine Succinate [Unisom] 25 mg PO QHS 08/16/18 08/16/18 Unknown History Gabapentin [Neurontin] 300 mg PO QHS 08/16/18 08/16/18 Unknown History Insulin Regular, Human [Humulin R 90 unit SQ BID 08/16/18 08/16/18 Unknown History U-500 Kwikpen] Loratadine [Claritin] 10 mg PO DAILY PRN 08/16/18 08/16/18 Unknown History Melatonin [Melatonin 3MG TAB] 3 mg PO QHS 08/16/18 08/16/18 Unknown History Niacin [Niacor] 500 mg PO DAILY 08/16/18 08/16/18 Unknown History Omeprazole 20 mg PO DAILY PRN 08/16/18 08/16/18 Unknown History Triamcinolone Acetonide [Nasacort 10.8 ml NS DAILY 08/16/18 08/16/18 Unknown History SPRAY] Active Medications: Generic Name Dose Route Start Last Admin Trade Name Freq PRN Reason Stop Dose Admin Acetaminophen 650 mg 08/16/18 03:07 08/21/18 21:55 Tylenol PO 650 mg Q4H PRN Administration Pain MILD(1-3)/Fever >100.5/FRAIRE Albuterol 2.5 mg 08/16/18 03:07 Proventil IH Q4HRT PRN Shortness Of Breath Aspirin 81 mg 08/16/18 10:00 08/26/18 09:30 Baby Aspirin PO 81 mg QDAY ARLENE Administration Atorvastatin Calcium 40 mg 08/16/18 22:00 08/25/18 21:51 Lipitor PO 40 mg QHS ARLENE Administration Carvedilol 6.25 mg 08/17/18 12:00 08/26/18 09:38 Coreg PO 6.25 mg BID ARLENE Administration Cholecalciferol 5,000 unit 08/16/18 10:00 08/26/18 09:30 Vitamin D3 PO 5,000 unit DAILY ARLENE Administration Dextrose 50 ml 08/16/18 03:13 D50w (25gm) Syringe IV PRN PRN Hypoglycemia Docusate Sodium 100 mg 08/16/18 10:00 08/26/18 09:31 Colace PO 100 mg BID ARLENE Administration Epoetin [place] 10,000 unit 08/18/18 13:00 08/25/18 13:00 Procrit SUB-Q 10,000 unit MOWEFR ARLENE Administration Gabapentin 300 mg 08/16/18 22:00 08/25/18 21:51 Neurontin PO 300 mg QHS ARLENE Administration Heparin Sodium (Porcine) 5,000 unit 08/16/18 10:00 08/26/18 09:31 Heparin SUB-Q 5,000 unit Q12HR ARLENE Administration Hydralazine HCl 50 mg 08/16/18 14:00 08/26/18 05:29 Apresoline PO 50 mg Q8HR ARLENE Administration Ceftriaxone Sodium 1 gm in 50 mls @ 100 mls/hr 08/18/18 15:00 08/25/18 14:18 Rocephin/Ns 1 Gm/50 Ml IV 08/29/18 14:59 100 mls/hr Q24HR ARLENE Administration Protocol Sodium Chloride 100 mls @ 999 mls/hr 08/26/18 10:00 Nacl 0.9% IV JANE PRN Hypotension Insulin Human Lispro 0 unit 08/16/18 07:30 08/26/18 09:35 Humalog SUB-Q 2 unit ACHS ARLENE Administration Protocol Insulin Human Regular 5 units 08/16/18 07:30 08/26/18 09:34 Humulin R SUB-Q 5 units AC ARLENE Administration Nitroglycerin 0.4 mg 08/16/18 03:07 Nitrostat SL .Q5MIN PRN Chest Pain Ondansetron HCl 4 mg 08/16/18 03:07 08/16/18 16:39 Zofran IV 4 mg Q8H PRN Administration Nausea And Vomiting Oxycodone/Acetaminophen 1 tab 08/16/18 03:07 08/23/18 22:06 Percocet 5/325 PO 1 tab Q6H PRN Administration Pain, Moderate (4-6) Sodium Chloride 10 ml 08/16/18 10:00 08/26/18 09:39 Sodium Chloride Flush Syringe 10 Ml IV 10 ml BID ARLENE Administration Sodium Chloride 10 ml 08/16/18 03:07 08/16/18 06:17 Sodium Chloride Flush Syringe 10 Ml IV 10 ml PRN PRN Administration LINE FLUSH
--- NOTE | 2018-08-26 10:58 | Progress Note ---
Assessment and Plan Cont present cardiac management. Volume optimization per nephrology. The patient has been seen in conjunction with Dr. Fairbanks who agrees with the assessment and plan of care. - Patient Problems (1) Acute heart failure with preserved ejection fraction Current Visit: Yes Status: Acute (2) Acute on chronic renal failure Current Visit: Yes Status: Acute (3) Anasarca Current Visit: Yes Status: Acute (4) Essential hypertension Current Visit: Yes Status: Chronic (5) Hyperlipemia, mixed Current Visit: Yes Status: Chronic (6) Morbid obesity Current Visit: Yes Status: Chronic (7) MARBELLA (obstructive sleep apnea) Current Visit: Yes Status: Chronic (8) Anemia Current Visit: Yes Status: Acute Qualifiers: Anemia type: unspecified type Qualified Code(s): D64.9 - Anemia, unspecified (9) Thrombocytopenia Current Visit: Yes Status: Acute (10) Chronic venous insufficiency Current Visit: Yes Status: Chronic Subjective Date of service: 08/26/18 Principal diagnosis: CHF; CKD;; HANSEN; Elevated d-dimer; Essential HTN; Morbid obesity; MARBELLA Interval history: pt resting comfortably in bed, BLE edema and scrotal edema gradually improving, undergoing HD. Objective Last Vital Signs Temp 97.8 F 08/26/18 07:53 Pulse 63 08/26/18 07:53 Resp 20 08/26/18 07:53 BP 117/58 08/26/18 07:53 Pulse Ox 93 08/26/18 09:50 - Physical Examination General: Appears Well HEENT: Positive: PERRL, Mucus Membranes Moist Neck: Positive: neck supple, trachea midline Cardiac: Positive: Reg Rate and Rhythm, S1/S2 Lungs: Positive: Decreased Breath Sounds Neuro: Positive: Grossly Intact Abdomen: Positive: Soft, Active Bowel Sounds. Negative: Tender, Distended Skin: Positive: Clear Incision: Cardiac Cath Site Musculoskeletal: No Pain, Normal Range of Motion Extremities: Present: normal, edema, +1 Edema, Other (scrotal edema) - Labs and Meds Comprehensive Metabolic Panel 08/17/18 08/26/18 Range/Units 10:40 04:56 Sodium 133 L (137-145) mmol/L Potassium 4.0 (3.6-5.0) mmol/L Chloride 96.3 L (98-107) mmol/L Carbon Dioxide 26 (22-30) mmol/L BUN 32 H (9-20) mg/dL Creatinine 2.1 H (0.8-1.5) mg/dL Glucose 186 H (75-100) mg/dL Calcium 8.3 L (8.4-10.2) mg/dL Albumin See scanned report - Imaging and Cardiology EKG: image reviewed (sinus rhythm at 76 bpm) Echo: report reviewed (2015 normal LV function.Positive bubble study PFO), other (08/17/2018 normal LV function and diastolic dysfunction mild to moderate LVH no significant regurgitations) - Allied health notes Allied health notes reviewed: nursing
--- NOTE | 2018-08-26 12:07 | Progress Note ---
Assessment and Plan Assessment and plan: Patient is a 58-year-old male with history of hypertension, diabetes, HLD, CKD stage III who presents to [facility] with c/o bilateral lower extremity swelling and shortness of breath. Pt scrotum is swollen obstructing view of his penis. Currently patient is on 2L supplemental O2 with saturation of 94%. D-dimer slightly elevated at 463.24. CK-MB elevated at 5.0; troponin negative. 2D ECHO conclusions Global LV systolic function is normal, estimated estimated EF is 55- 60%; abnormal LV diastolic dysfunction, mild to moderate concentric LV hypertrophy, trace mr, tr, RVSP calculated at 57 mmHg, Acute heart failure with preserved EF. Continue present management. No ACEI or ARB due to advanced renal failure. CXR on 08/19/18 showed no pulmonary edema or pneumonia. Continue hemodialysis per nephrology. Acute on Chronic kidney disease, stage 3: Patient had Perm-catheter placed 08/22 and hemodialysis was initiated. Secondary GN workup was negative. Renal ultrasound on 08/16/18- Chronic medical renal disease. No Hydronephrosis. No ACEI or ARB due to advanced renal failure. Renally dose all medications. Avoid Nephrotoxic agents. Strict I/O's monitoring. Nephrology to determine long-term needs for hemodialysis. Cr 2.1 today Anasarca and scrotal edema. Elevated D-Dimer. V/Q scan negative Hypertensive urgency: iv antihypertensives as needed, low salt diet DM type 2; ada and ssi HLD: treat with statins Malnutrition mild to moderate: counseling done, consulted Junior Programmer Right toe pressure ulcer, poa, at least stage 3, heel ulcers bilateral also: see admission photos, local wound care done, continue Wound care Morbid obese, BMI 51: counseled on lifestyle modification and weight reduction Full code status History Interval history: patient seen at Dialysis Unit feels better Less swelling Less shortness of breath Hospitalist Physical - Physical exam Narrative exam: Gen: Not in acute distress, lying in bed, morbidly obese HEENT: Normocephalic, atraumatic Neck: supple, no JVD Heart: S1 and S2 reg, no murmurs, rubs or gallop Lungs: Clear, no crackles, no wheeze Abd: soft, non tender, non distended, normal BS Ext: Bilateral leg edema, no clubbing, no cyanosis, Skin:anasarca Neuro: Awake,alert, oriented x 3, moves all ext, non focal Psych:Normal mood - Constitutional Vitals: Temp Pulse Resp BP Pulse Ox 97.8 F 63 20 117/58 93 08/26/18 07:53 08/26/18 07:53 08/26/18 07:53 08/26/18 07:53 08/26/18 09:50 General appearance: Present: no acute distress, obese Results - Labs CBC & Chem 7: 08/25/18 04:43 08/26/18 04:56 Labs: Laboratory Last Values WBC 5.3 K/mm3 (4.5-11.0) 08/25/18 04:43 RBC 3.41 M/mm3 (3.65-5.03) L 08/25/18 04:43 Hgb 9.1 gm/dl (11.8-15.2) L 08/25/18 04:43 Hct 28.0 % (35.5-45.6) L 08/25/18 04:43 MCV 82 fl (84-94) L 08/25/18 04:43 MCH 27 pg (28-32) L 08/25/18 04:43 MCHC 33 % (32-34) 08/25/18 04:43 RDW 17.0 % (13.2-15.2) H 08/25/18 04:43 Plt Count 133 K/mm3 (140-440) L 08/25/18 04:43 Lymph % (Auto) 26.6 % (13.4-35.0) 08/17/18 07:30 [place] % (Auto) [place] 08/25/18 04:43 Eos % (Auto) 6.6 % (0.0-4.3) H 08/17/18 07:30 Baso % (Auto) 1.1 % (0.0-1.8) 08/17/18 07:30 Lymph # 1.3 K/mm3 (1.2-5.4) 08/17/18 07:30 [place] # 0.7 K/mm3 (0.0-0.8) 08/17/18 07:30 Eos # 0.3 K/mm3 (0.0-0.4) 08/17/18 07:30 Baso # 0.1 K/mm3 (0.0-0.1) 08/17/18 07:30 Add Manual Diff Complete 08/25/18 04:43 Total Counted 100 08/25/18 04:43 Seg Neutrophils % 51.7 % (40.0-70.0) 08/17/18 07:30 Seg Neuts % (Manual) 62.0 % (40.0-70.0) 08/25/18 04:43 0 % 08/25/18 04:43 23.0 % (13.4-35.0) 08/25/18 04:43 Reactive Lymphs % (Man) 0 % 08/25/18 04:43 10.0 % (0.0-7.3) H 08/25/18 04:43 4.0 % (0.0-4.3) 08/25/18 04:43 1.0 % (0.0-1.8) 08/25/18 04:43 0 % 08/25/18 04:43 0 % 08/25/18 04:43 0 % 08/25/18 04:43 0 % 08/25/18 04:43 Nucleated RBC % Not Reportable 08/25/18 04:43 Seg Neutrophils # 2.6 K/mm3 (1.8-7.7) 08/17/18 07:30 Seg Neutrophils # Man 3.3 K/mm3 (1.8-7.7) 08/25/18 04:43 Band Neutrophils # 0.0 K/mm3 08/25/18 04:43 1.2 K/mm3 (1.2-5.4) 08/25/18 04:43 Abs React Lymphs (Man) 0.0 K/mm3 08/25/18 04:43 0.5 K/mm3 (0.0-0.8) 08/25/18 04:43 0.2 K/mm3 (0.0-0.4) 08/25/18 04:43 0.1 K/mm3 (0.0-0.1) 08/25/18 04:43 0.0 K/mm3 08/25/18 04:43 0.0 K/mm3 08/25/18 04:43 0.0 K/mm3 08/25/18 04:43 Blast Cells # 0.0 K/mm3 08/25/18 04:43 WBC Morphology Not Reportable 08/25/18 04:43 Hypersegmented Neuts Not Reportable 08/25/18 04:43 Hyposegmented Neuts Not Reportable 08/25/18 04:43 Hypogranular Neuts Not Reportable 08/25/18 04:43 Not Reportable 08/25/18 04:43 Not Reportable 08/25/18 04:43 Not Reportable 08/25/18 04:43 Not Reportable 08/25/18 04:43 Not Reportable 08/25/18 04:43 Not Reportable 08/25/18 04:43 Consistent w auto 08/25/18 04:43 Not Reportable 08/25/18 04:43 Plt Clumps, EDTA Not Reportable 08/25/18 04:43 Rare 08/25/18 04:43 Not Reportable 08/25/18 04:43 Not Reportable 08/25/18 04:43 Plt Morphology Comment Not Reportable 08/25/18 04:43 RBC Morphology Not Reportable 08/25/18 04:43 Dimorphic RBCs Not Reportable 08/25/18 04:43 Not Reportable 08/25/18 04:43 Not Reportable 08/25/18 04:43 1+ 08/25/18 04:43 1+ 08/25/18 04:43 Not Reportable 08/25/18 04:43 Not Reportable 08/25/18 04:43 Not Reportable 08/25/18 04:43 Not Reportable 08/25/18 04:43 Not Reportable 08/25/18 04:43 Not Reportable 08/25/18 04:43 Not Reportable 08/25/18 04:43 Not Reportable 08/25/18 04:43 Not Reportable 08/25/18 04:43 Not Reportable 08/25/18 04:43 Not Reportable 08/25/18 04:43 Not Reportable 08/25/18 04:43 Not Reportable 08/25/18 04:43 Not Reportable 08/25/18 04:43 1+ 08/25/18 04:43 Acanthocytes (Spur) Not Reportable 08/25/18 04:43 Rouleaux Not Reportable 08/25/18 04:43 Not Reportable 08/25/18 04:43 Not Reportable 08/25/18 04:43 Not Reportable 08/25/18 04:43 Not Reportable 08/25/18 04:43 Hem Pathologist Commnt No 08/25/18 04:43 463.24 ng/mlDDU (0-234) H 08/15/18 21:24 Sodium 133 mmol/L (137-145) L 08/26/18 04:56 Potassium 4.0 mmol/L (3.6-5.0) 08/26/18 04:56 Chloride 96.3 mmol/L (98-107) L 08/26/18 04:56 Carbon Dioxide 26 mmol/L (22-30) 08/26/18 04:56 15 mmol/L 08/26/18 04:56 BUN 32 mg/dL (9-20) H 08/26/18 04:56 2.1 mg/dL (0.8-1.5) H 08/26/18 04:56 Estimated GFR 33 ml/min 08/26/18 04:56 15 % 08/26/18 04:56 Glucose 186 mg/dL (75-100) H 08/26/18 04:56 POC Glucose 183 (70-105) H 08/26/18 07:21 7.4 % (4-6) H 08/16/18 03:37 Lactic Acid 0.70 mmol/L (0.7-2.0) 08/20/18 04:53 Calcium 8.3 mg/dL (8.4-10.2) L 08/26/18 04:56 Phosphorus 3.90 mg/dL (2.5-4.5) 08/25/18 04:43 Iron 30 ug/dL (49-181) L 08/16/18 13:52 TIBC 352 mcg/dL (250-450) 08/16/18 13:52 78.2 ng/mL (13.0-400.0) 08/18/18 08:34 0.40 mg/dL (0.1-1.2) 08/15/18 18:54 AST 25 units/L (5-40) 08/15/18 18:54 ALT 15 units/L (7-56) 08/15/18 18:54 74 units/L (35-129) 08/15/18 18:54 340 units/L (55-170) H 08/15/18 21:24 CK-MB (CK-2) 5.0 ng/mL (0.0-4.0) H 08/15/18 21:24 CK-MB (CK-2) Rel Index 1.4 (0-4) 08/15/18 21:24 0.026 ng/mL (0.00-0.029) 08/15/18 21:24 NT-Pro-B Natriuret Pep 877.6 pg/mL (0-900) 08/17/18 11:13 6.1 g/dL (6.1-8.1) 08/17/18 11:13 6.7 g/dL (6.3-8.2) 08/15/18 18:54 2.9 g/dL (3.8-4.8) L 08/17/18 11:13 0.9 % 08/15/18 18:54 0.4 g/dL (0.2-0.3) H 08/17/18 11:13 0.7 g/dL (0.5-0.9) 08/17/18 11:13 0.5 g/dL (0.2-0.5) 08/17/18 11:13 1.1 g/dL (0.8-1.7) 08/17/18 11:13 Abnorm Protein Band 1 see below 08/17/18 11:13 PEP Interpretation see below H 08/17/18 11:13 Triglycerides 140 mg/dL (2-149) 08/16/18 03:37 Cholesterol 147 mg/dL (50-199) 08/16/18 03:37 88 mg/dL (50-130) 08/16/18 03:37 37 mg/dL (40-59) L 08/16/18 03:37 3.97 % 08/16/18 03:37 Straw (Yellow) 08/17/18 04:00 Clear (Clear) 08/17/18 04:00 7.0 (5.0-7.0) 08/17/18 04:00 Ur Specific [place] 1.006 (1.003-1.030) 08/17/18 04:00 100 mg/dl mg/dL (Negative) 08/17/18 04:00 Neg mg/dL (Negative) 08/17/18 04:00 Neg mg/dL (Negative) 08/17/18 04:00 Neg (Negative) 08/17/18 04:00 Neg (Negative) 08/17/18 04:00 Neg (Negative) 08/17/18 04:00 < 2.0 mg/dL (<2.0) 08/17/18 04:00 Ur Leukocyte Esterase Neg (Negative) 08/17/18 04:00 < 1.0 /HPF (0.0-6.0) 08/17/18 04:00 2.0 /HPF (0.0-6.0) 08/17/18 04:00 U Epithel Cells (Auto) 1.0 /HPF (0-13.0) 08/15/18 18:47 1+ /HPF (Negative) 08/17/18 04:00 Few /HPF 08/15/18 18:47 None seen (None Seen) 08/17/18 04:00 Ur Random Creatinine See scanned report 08/17/18 10:40 U Random Total Protein See scanned report 08/17/18 10:40 800 ml 08/20/18 12:09 56.1 mg/dL (0.1-20.0) H 08/20/18 12:09 Height (in) 68.0 inches 08/20/18 12:09 Weight (lb) 348.8 lbs 08/20/18 12:09 6 08/20/18 12:09 Protein/Creatinin Ratio See scanned report 08/17/18 10:40 132 mmol/L 08/17/18 04:00 106 08/17/18 04:00 79 mg/dL (5-11.8) H 08/17/18 04:00 U Abnormal Prot Band 1 See scanned report 08/17/18 10:40 U Abnormal Prot Band 2 See scanned report 08/17/18 10:40 U Abnormal Prot Band 3 See scanned report 08/17/18 10:40 Immunofix Electrophor see below 08/17/18 11:13 JELANI Screen Negative (Negative) 08/17/18 11:13 Double Strand DNA Ab <1 IU/mL (<=4) 08/17/18 11:13 144 mg/dL (82-185) 08/17/18 11:13 23 mg/dL (15-53) 08/17/18 11:13 RPR Nonreactive (Nonreactive) 08/17/18 11:13 Hepatitis A IgM Ab Non-reactive (NonReactive) 08/17/18 11:13 Hep Bs Antigen Non-reactive (Negative) 08/17/18 11:13 Hep B Core IgM Ab Non-reactive (NonReactive) 08/17/18 11:13 Non-reactive (NonReactive) 08/17/18 11:13 HIV 1&2 Antibody Rapid Non react (Non React) 08/17/18 11:13 Non react (Non React) 08/17/18 11:13 Active Medications - Current Medications Current Medications: Generic Name Dose Route Start Last Admin Trade Name Freq PRN Reason Stop Dose Admin Acetaminophen 650 mg 08/16/18 03:07 08/21/18 21:55 Tylenol PO 650 mg Q4H PRN Administration Pain MILD(1-3)/Fever >100.5/FRAIRE Albuterol 2.5 mg 08/16/18 03:07 Proventil IH Q4HRT PRN Shortness Of Breath Aspirin 81 mg 08/16/18 10:00 08/26/18 09:30 Baby Aspirin PO 81 mg QDAY ARLENE Administration Atorvastatin Calcium 40 mg 08/16/18 22:00 08/25/18 21:51 Lipitor PO 40 mg QHS ARLENE Administration Carvedilol 6.25 mg 08/17/18 12:00 08/26/18 09:38 Coreg PO 6.25 mg BID ARLENE Administration Cholecalciferol 5,000 unit 08/16/18 10:00 08/26/18 09:30 Vitamin D3 PO 5,000 unit DAILY ARLENE Administration Dextrose 50 ml 08/16/18 03:13 D50w (25gm) Syringe IV PRN PRN Hypoglycemia Docusate Sodium 100 mg 08/16/18 10:00 08/26/18 09:31 Colace PO 100 mg BID ARLENE Administration Epoetin [place] 10,000 unit 08/18/18 13:00 08/25/18 13:00 Procrit SUB-Q 10,000 unit MOWEFR ARLENE Administration Gabapentin 300 mg 08/16/18 22:00 08/25/18 21:51 Neurontin PO 300 mg QHS ARLENE Administration Heparin Sodium (Porcine) 5,000 unit 08/16/18 10:00 08/26/18 09:31 Heparin SUB-Q 5,000 unit Q12HR ARLENE Administration Hydralazine HCl 50 mg 08/16/18 14:00 08/26/18 05:29 Apresoline PO 50 mg Q8HR ARLENE Administration Ceftriaxone Sodium 1 gm in 50 mls @ 100 mls/hr 08/18/18 15:00 08/25/18 14:18 Rocephin/Ns 1 Gm/50 Ml IV 08/29/18 14:59 100 mls/hr Q24HR ARLENE Administration Protocol Sodium Chloride 100 mls @ 999 mls/hr 08/26/18 10:00 Nacl 0.9% IV JANE PRN Hypotension Insulin Human Lispro 0 unit 08/16/18 07:30 08/26/18 09:35 Humalog SUB-Q 2 unit ACHS ARLENE Administration Protocol Insulin Human Regular 5 units 08/16/18 07:30 08/26/18 09:34 Humulin R SUB-Q 5 units AC ARLEEN Administration Nitroglycerin 0.4 mg 08/16/18 03:07 Nitrostat SL .Q5MIN PRN Chest Pain Ondansetron HCl 4 mg 08/16/18 03:07 08/16/18 16:39 Zofran IV 4 mg Q8H PRN Administration Nausea And Vomiting Oxycodone/Acetaminophen 1 tab 08/16/18 03:07 08/23/18 22:06 Percocet 5/325 PO 1 tab Q6H PRN Administration Pain, Moderate (4-6) Sodium Chloride 10 ml 08/16/18 10:00 08/26/18 09:39 Sodium Chloride Flush Syringe 10 Ml IV 10 ml BID ARLENE Administration Sodium Chloride 10 ml 08/16/18 03:07 08/16/18 06:17 Sodium Chloride Flush Syringe 10 Ml IV 10 ml PRN PRN Administration LINE FLUSH Nutrition/Malnutrition Assess - Dietary Evaluation Nutrition/Malnutrition Findings: Nutrition Notes Start: 08/16/18 09:25 Freq: Status: Active Protocol: Document 08/19/18 14:48 GHSASAN (Rec: 08/19/18 14:54 GHASSAN [email or web address]) Nutrition Notes Initial or Follow up Brief Note Current Diagnosis CKD(stage I-IV),Diabetes Other Pertinent Diagnosis Fluid retention in scrotum and BLE edema, wounds on toe, heel and leg Current Diet Cardiac/consistent CHO Labs/Tests Na 134 BUN 55 Cr 4.4 Pertinent Medications Reviewed [place] Body Weight (kg) 0 Subjective/Other Information Pt reports good appetite; has been consuming 75-100% of meals. Nutrition Intervention Revisit per MD consult or patient Sign Off request:
[2018-08-26] MEDS: PROCRIT SUB-Q SCH (13:20)
[2018-08-26] MEDS ORDERED: NACL 0.9 (PRIMING MACHINE ONLY DIALYSIS) MC ONE (14:01)
--- NOTE | 2018-08-26 14:12 | Progress Note ---
Assessment and Plan Patient awake and presently resting on room air. O2 sat 90%. No acute respiratory distress. Recommend to use O2 2L when he is not on BiPAP. - Patient Problems (1) CHF (congestive heart failure) Current Visit: Yes Status: Acute Qualifiers: Heart failure type: diastolic Heart failure chronicity: acute Qualified Code(s): I50.31 - Acute diastolic (congestive) heart failure Plan to address problem: Management as per cardiology. (2) CKD (chronic kidney disease) Current Visit: Yes Status: Acute Qualifiers: Chronic kidney disease stage: stage 3 (moderate) Qualified Code(s): N18.3 - Chronic kidney disease, stage 3 (moderate) Plan to address problem: Management as per nephrology. (3) HANSEN (dyspnea on exertion) Current Visit: Yes Status: Acute Plan to address problem: Albuterol aerosol treatments q 6 hours prn for shortness of breath. O2 2 litres via nasal canula BIPAP during night time and PRN during day time for shortness of breath. Continue S/C Heparin. (4) Elevated d-dimer Current Visit: Yes Status: Acute Plan to address problem: Venous doppler studies reported negative for DVT. Perfusion lung scan reported low probabily for pulmonary emboli. Continue S/C heparin. (5) Essential hypertension Current Visit: Yes Status: Chronic Plan to address problem: Management as per primary care. (6) Morbid obesity Current Visit: Yes Status: Chronic Plan to address problem: Recommend to loose weight. Exercise and diet. (7) Sleep apnea with use of continuous positive airway pressure (CPAP) Current Visit: Yes Status: Acute Plan to address problem: Continue BIPAP as using at home. Subjective Date of service: 08/26/18 Principal diagnosis: CHF; CKD;; HANSEN; Elevated d-dimer; Essential HTN; Morbid obesity; MARBELLA Interval history: Patient awake and presently resting on room air. O2 sat 90%. No acute respira tory distress. Recommend to use O2 2L when he is not on BiPAP. Objective Vital Signs - 12hr 08/26/18 08/26/18 08/26/18 03:40 05:29 07:53 Temperature 97.5 F L 97.8 F Pulse Rate 72 72 63 Respiratory 20 20 Rate Blood Pressure 136/70 136/70 117/58 O2 Sat by Pulse 93 91 Oximetry 08/26/18 09:50 Temperature Pulse Rate Respiratory Rate Blood Pressure O2 Sat by Pulse 93 Oximetry Constitutional: no acute distress, alert, other (Morbidly Obese middle aged CM) Eyes: non-icteric ENT: oropharynx moist, other (mallampati 4) Neck: supple, no JVD, other (large neck circumference) Effort: mildly labored Ascultation: Bilateral: diminished breath sounds, rhonchi (scant in bases) Percussion: Bilateral: not dull Cardiovascular: regular rate and rhythm Gastrointestinal: normoactive bowel sounds, soft, non-tender, other (protuberant) Integumentary: cellulitis, other (Cellulitis and wounds in both lower legs.) Extremities: no cyanosis, pink and warm, pulses normal, edema (trace to 1+) Neurologic: normal mental status, non-focal exam, pupils equal and round, CN II- XII normal Psychiatric: mood appropriate, affect normal CBC and BMP: 08/25/18 04:43 08/26/18 04:56 ABG, PT/INR, D-dimer: PT/INR, D-dimer 463.24 ng/mlDDU (0-234) H 08/15/18 21:24 Abnormal lab findings: Abnormal Labs 08/15/18 08/15/18 08/15/18 18:02 18:54 18:54 WBC RBC 3.61 L Hgb 9.8 L Hct 30.1 L MCV MCH 27 L RDW 16.8 H Plt Count [place] % (Auto) 10.7 H Eos % (Auto) 5.9 H Seg Neuts % (Manual) Lymphocytes % (Manual) Monocytes % (Manual) Eosinophils % (Manual) Basophils % (Manual) Seg Neutrophils # Man D-Dimer Sodium Chloride 107.7 H BUN 25 H Creatinine 2.5 H Glucose 159 H POC Glucose 124 H Hemoglobin A1c Calcium Phosphorus Iron Total Creatine Kinase CK-MB (CK-2) Albumin 3.2 L Bsnel-6-Erjpzqmew PEP Interpretation HDL Cholesterol Urine Creatinine Urine Total Protein 08/15/18 08/15/18 08/16/18 21:24 21:24 03:37 WBC RBC Hgb Hct MCV MCH RDW Plt Count [place] % (Auto) Eos % (Auto) Seg Neuts % (Manual) Lymphocytes % (Manual) Monocytes % (Manual) Eosinophils % (Manual) Basophils % (Manual) Seg Neutrophils # Man D-Dimer 463.24 H Sodium Chloride BUN Creatinine Glucose POC Glucose Hemoglobin A1c 7.4 H Calcium Phosphorus Iron Total Creatine Kinase 340 H CK-MB (CK-2) 5.0 H Albumin Fvcuc-8-Bgxccyhkd PEP Interpretation HDL Cholesterol Urine Creatinine Urine Total Protein 08/16/18 08/16/18 08/16/18 03:37 07:54 12:01 WBC RBC Hgb Hct MCV MCH RDW Plt Count [place] % (Auto) Eos % (Auto) Seg Neuts % (Manual) Lymphocytes % (Manual) Monocytes % (Manual) Eosinophils % (Manual) Basophils % (Manual) Seg Neutrophils # Sadi Green-Dimer Sodium Chloride BUN Creatinine Glucose POC Glucose 113 H 179 H Hemoglobin A1c Calcium Phosphorus Iron Total Creatine Kinase CK-MB (CK-2) Albumin Ilaoe-3-Lzjjfymyc PEP Interpretation HDL Cholesterol 37 L Urine Creatinine Urine Total Protein 08/16/18 08/16/18 08/16/18 13:52 17:44 21:21 WBC RBC Hgb Hct MCV MCH RDW Plt Count [place] % (Auto) Eos % (Auto) Seg Neuts % (Manual) Lymphocytes % (Manual) Monocytes % (Manual) Eosinophils % (Manual) Basophils % (Manual) Seg Neutrophils # Sadi Green-Natalya Sodium Chloride BUN Creatinine Glucose POC Glucose 221 H 165 H Hemoglobin A1c Calcium Phosphorus Iron 30 L Total Creatine Kinase CK-MB (CK-2) Albumin Sgysw-9-Zlxjgdmir PEP Interpretation HDL Cholesterol Urine Creatinine Urine Total Protein 08/17/18 08/17/18 08/17/18 04:00 07:30 07:30 WBC RBC Hgb 10.3 L Hct 31.5 L MCV 82 L MCH 27 L RDW 16.8 H Plt Count [place] % (Auto) 14.0 H Eos % (Auto) 6.6 H Seg Neuts % (Manual) Lymphocytes % (Manual) Monocytes % (Manual) Eosinophils % (Manual) Basophils % (Manual) Seg Neutrophils # Sadi D-Dimer Sodium Chloride BUN 32 H Creatinine 2.9 H Glucose 180 H POC Glucose Hemoglobin A1c Calcium Phosphorus Iron Total Creatine Kinase CK-MB (CK-2) Albumin Sjpgn-9-Wjogefopa PEP Interpretation HDL Cholesterol Urine Creatinine 22.4 H Urine Total Protein 79 H 08/17/18 08/17/18 08/17/18 07:34 11:13 12:17 WBC RBC Hgb Hct MCV MCH RDW Plt Count [place] % (Auto) Eos % (Auto) Seg Neuts % (Manual) Lymphocytes % (Manual) Monocytes % (Manual) Eosinophils % (Manual) Basophils % (Manual) Seg Neutrophils # Sadi D-Dimer Sodium Chloride BUN Creatinine Glucose POC Glucose 169 H 207 H Hemoglobin A1c Calcium Phosphorus Iron Total Creatine Kinase CK-MB (CK-2) Albumin 2.9 L Cvmwe-9-Hmurqtnsq 0.4 H PEP Interpretation see below H HDL Cholesterol Urine Creatinine Urine Total Protein 08/17/18 08/17/18 08/18/18 16:36 21:17 07:05 WBC RBC Hgb Hct MCV MCH RDW Plt Count [place] % (Auto) Eos % (Auto) Seg Neuts % (Manual) Lymphocytes % (Manual) Monocytes % (Manual) Eosinophils % (Manual) Basophils % (Manual) Seg Neutrophils # Sadi D-Dimer Sodium 134 L Chloride 95.9 L BUN 43 H Creatinine 3.8 H Glucose 150 H POC Glucose 184 H 209 H Hemoglobin A1c Calcium Phosphorus Iron Total Creatine Kinase CK-MB (CK-2) Albumin Tohys-1-Vdspckrdz PEP Interpretation HDL Cholesterol Urine Creatinine Urine Total Protein 08/18/18 08/18/18 08/18/18 07:53 08:34 11:53 WBC RBC Hgb 10.8 L Hct 33.8 L MCV MCH 27 L RDW 16.3 H Plt Count [place] % (Auto) Eos % (Auto) Seg Neuts % (Manual) Lymphocytes % (Manual) Monocytes % (Manual) Eosinophils % (Manual) Basophils % (Manual) Seg Neutrophils # Sadi D-Dimer Sodium Chloride BUN Creatinine Glucose POC Glucose 139 H 191 H Hemoglobin A1c Calcium Phosphorus Iron Total Creatine Kinase CK-MB (CK-2) Albumin Ixogx-7-Grsodngpr PEP Interpretation HDL Cholesterol Urine Creatinine Urine Total Protein 08/18/18 08/18/18 08/19/18 15:54 20:49 05:28 WBC RBC Hgb 9.7 L Hct 30.1 L MCV 82 L MCH 26 L RDW 16.6 H Plt Count 136 L [place] % (Auto) Eos % (Auto) Seg Neuts % (Manual) Lymphocytes % (Manual) Monocytes % (Manual) Eosinophils % (Manual) Basophils % (Manual) Seg Neutrophils # Sadi D-Dimer Sodium Chloride BUN Creatinine Glucose POC Glucose 150 H 138 H Hemoglobin A1c Calcium Phosphorus Iron Total Creatine Kinase CK-MB (CK-2) Albumin Lagzu-2-Usvnyzeyh PEP Interpretation HDL Cholesterol Urine Creatinine Urine Total Protein 08/19/18 08/19/18 08/19/18 05:28 07:43 11:57 WBC RBC Hgb Hct MCV MCH RDW Plt Count [place] % (Auto) Eos % (Auto) Seg Neuts % (Manual) Lymphocytes % (Manual) Monocytes % (Manual) Eosinophils % (Manual) Basophils % (Manual) Seg Neutrophils # Man D-Dimer Sodium 134 L Chloride 96.2 L BUN 55 H Creatinine 4.4 H Glucose 118 H POC Glucose 162 H 280 H Hemoglobin A1c Calcium Phosphorus Iron Total Creatine Kinase CK-MB (CK-2) Albumin Ocfix-4-Wdblvljsv PEP Interpretation HDL Cholesterol Urine Creatinine Urine Total Protein 08/19/18 08/19/18 08/20/18 15:41 21:44 04:53 WBC 3.5 L RBC 3.58 L Hgb 9.4 L Hct 29.5 L MCV 83 L MCH 26 L RDW 16.4 H Plt Count 121 L [place] % (Auto) Eos % (Auto) Seg Neuts % (Manual) Lymphocytes % (Manual) Monocytes % (Manual) 16.0 H Eosinophils % (Manual) Basophils % (Manual) 3.0 H Seg Neutrophils # Man 1.6 L D-Dimer Sodium Chloride BUN Creatinine Glucose POC Glucose 167 H 234 H Hemoglobin A1c Calcium Phosphorus Iron Total Creatine Kinase CK-MB (CK-2) Albumin Whhfb-8-Kbrxguqdg PEP Interpretation HDL Cholesterol Urine Creatinine Urine Total Protein 08/20/18 08/20/18 08/20/18 04:53 08:13 12:09 WBC RBC Hgb Hct MCV MCH RDW Plt Count [place] % (Auto) Eos % (Auto) Seg Neuts % (Manual) Lymphocytes % (Manual) Monocytes % (Manual) Eosinophils % (Manual) Basophils % (Manual) Seg Neutrophils # Man D-Dimer Sodium 136 L Chloride BUN 57 H Creatinine 3.3 H Glucose 136 H POC Glucose 124 H Hemoglobin A1c Calcium Phosphorus 5.50 H Iron Total Creatine Kinase CK-MB (CK-2) Albumin Xjmud-8-Hequqieot PEP Interpretation HDL Cholesterol Urine Creatinine 56.1 H Urine Total Protein 08/20/18 08/20/18 08/20/18 12:49 18:26 20:53 WBC RBC Hgb Hct MCV MCH RDW Plt Count [place] % (Auto) Eos % (Auto) Seg Neuts % (Manual) Lymphocytes % (Manual) Monocytes % (Manual) Eosinophils % (Manual) Basophils % (Manual) Seg Neutrophils # Sadi D-Dimer Sodium Chloride BUN Creatinine Glucose POC Glucose 145 H 175 H 184 H Hemoglobin A1c Calcium Phosphorus Iron Total Creatine Kinase CK-MB (CK-2) Albumin Phhmy-7-Vpierwirl PEP Interpretation HDL Cholesterol Urine Creatinine Urine Total Protein 08/21/18 08/21/18 08/21/18 04:28 04:28 08:58 WBC 3.8 L RBC 3.42 L Hgb 9.2 L Hct 28.4 L MCV 83 L MCH 27 L RDW 16.4 H Plt Count 126 L [place] % (Auto) Eos % (Auto) Seg Neuts % (Manual) Lymphocytes % (Manual) Monocytes % (Manual) 15.0 H Eosinophils % (Manual) Basophils % (Manual) Seg Neutrophils # Sadi D-Dimer Sodium 134 L Chloride 96.5 L BUN 59 H Creatinine 3.4 H Glucose 190 H POC Glucose 159 H Hemoglobin A1c Calcium Phosphorus 5.10 H Iron Total Creatine Kinase CK-MB (CK-2) Albumin Krvim-0-Paomrkpat PEP Interpretation HDL Cholesterol Urine Creatinine Urine Total Protein 08/21/18 08/21/18 08/21/18 12:25 17:10 21:43 WBC RBC Hgb Hct MCV MCH RDW Plt Count [place] % (Auto) Eos % (Auto) Seg Neuts % (Manual) Lymphocytes % (Manual) Monocytes % (Manual) Eosinophils % (Manual) Basophils % (Manual) Seg Neutrophils # Sadi D-Dimer Sodium Chloride BUN Creatinine Glucose POC Glucose 222 H 152 H 150 H Hemoglobin A1c Calcium Phosphorus Iron Total Creatine Kinase CK-MB (CK-2) Albumin Gsvej-2-Kuqteswjy PEP Interpretation HDL Cholesterol Urine Creatinine Urine Total Protein 08/22/18 08/22/18 08/22/18 04:50 04:51 08:08 WBC 3.7 L RBC 3.37 L Hgb 9.0 L Hct 27.8 L MCV 83 L MCH 27 L RDW 16.9 H Plt Count 124 L [place] % (Auto) Eos % (Auto) Seg Neuts % (Manual) Lymphocytes % (Manual) Monocytes % (Manual) 13.0 H Eosinophils % (Manual) 11.0 H Basophils % (Manual) Seg Neutrophils # Sadi 1.6 L D-Dimer Sodium 135 L Chloride 97.4 L BUN 64 H Creatinine 3.5 H Glucose 114 H POC Glucose 117 H Hemoglobin A1c Calcium Phosphorus 4.90 H Iron Total Creatine Kinase CK-MB (CK-2) Albumin Hyitb-5-Xxpkmpzah PEP Interpretation HDL Cholesterol Urine Creatinine Urine Total Protein 08/22/18 08/22/18 08/23/18 14:48 21:36 05:09 WBC 4.3 L RBC 3.60 L Hgb 9.6 L Hct 29.6 L MCV 82 L MCH 27 L RDW 16.6 H Plt Count 134 L [place] % (Auto) Eos % (Auto) Seg Neuts % (Manual) 38.0 L Lymphocytes % (Manual) 51.0 H Monocytes % (Manual) 8.0 H Eosinophils % (Manual) Basophils % (Manual) Seg Neutrophils # Man 1.6 L D-Dimer Sodium Chloride BUN Creatinine Glucose POC Glucose 211 H 268 H Hemoglobin A1c Calcium Phosphorus Iron Total Creatine Kinase CK-MB (CK-2) Albumin Grjue-6-Pafcvfthc PEP Interpretation HDL Cholesterol Urine Creatinine Urine Total Protein 08/23/18 08/23/18 08/23/18 05:09 07:44 14:02 WBC RBC Hgb Hct MCV MCH RDW Plt Count [place] % (Auto) Eos % (Auto) Seg Neuts % (Manual) Lymphocytes % (Manual) Monocytes % (Manual) Eosinophils % (Manual) Basophils % (Manual) Seg Neutrophils # Man D-Dimer Sodium Chloride BUN 45 H Creatinine 2.6 H Glucose 174 H POC Glucose 240 H 161 H Hemoglobin A1c Calcium Phosphorus Iron Total Creatine Kinase CK-MB (CK-2) Albumin Imydu-2-Rgyxptaez PEP Interpretation HDL Cholesterol Urine Creatinine Urine Total Protein 08/23/18 08/23/18 08/24/18 17:33 20:32 05:09 WBC RBC Hgb Hct MCV MCH RDW Plt Count [place] % (Auto) Eos % (Auto) Seg Neuts % (Manual) Lymphocytes % (Manual) Monocytes % (Manual) Eosinophils % (Manual) Basophils % (Manual) Seg Neutrophils # Man D-Dimer Sodium 135 L Chloride 97.4 L BUN 38 H Creatinine 2.3 H Glucose 183 H POC Glucose 217 H 208 H Hemoglobin A1c Calcium Phosphorus Iron Total Creatine Kinase CK-MB (CK-2) Albumin Wlprw-4-Dhxfexchi PEP Interpretation HDL Cholesterol Urine Creatinine Urine Total Protein 08/24/18 08/24/18 08/24/18 07:49 11:32 16:44 WBC RBC Hgb Hct MCV MCH RDW Plt Count [place] % (Auto) Eos % (Auto) Seg Neuts % (Manual) Lymphocytes % (Manual) Monocytes % (Manual) Eosinophils % (Manual) Basophils % (Manual) Seg Neutrophils # Sadi D-Dimer Sodium Chloride BUN Creatinine Glucose POC Glucose 171 H 271 H 168 H Hemoglobin A1c Calcium Phosphorus Iron Total Creatine Kinase CK-MB (CK-2) Albumin Hffqg-9-Jldcketud PEP Interpretation HDL Cholesterol Urine Creatinine Urine Total Protein 08/24/18 08/25/18 08/25/18 20:54 04:43 04:43 WBC RBC 3.41 L Hgb 9.1 L Hct 28.0 L MCV 82 L MCH 27 L RDW 17.0 H Plt Count 133 L [place] % (Auto) Eos % (Auto) Seg Neuts % (Manual) Lymphocytes % (Manual) Monocytes % (Manual) 10.0 H Eosinophils % (Manual) Basophils % (Manual) Seg Neutrophils # Sadi D-Dimer Sodium 136 L Chloride BUN 44 H Creatinine 2.6 H Glucose 193 H POC Glucose 214 H Hemoglobin A1c Calcium Phosphorus Iron Total Creatine Kinase CK-MB (CK-2) Albumin Gquim-1-Qzedgtlva PEP Interpretation HDL Cholesterol Urine Creatinine Urine Total Protein 08/25/18 08/25/18 08/25/18 08:04 13:43 16:39 WBC RBC Hgb Hct MCV MCH RDW Plt Count [place] % (Auto) Eos % (Auto) Seg Neuts % (Manual) Lymphocytes % (Manual) Monocytes % (Manual) Eosinophils % (Manual) Basophils % (Manual) Seg Neutrophils # Sadi D-Dimer Sodium Chloride BUN Creatinine Glucose POC Glucose 167 H 193 H 249 H Hemoglobin A1c Calcium Phosphorus Iron Total Creatine Kinase CK-MB (CK-2) Albumin Nlksh-5-Utmuhehjc PEP Interpretation HDL Cholesterol Urine Creatinine Urine Total Protein 08/25/18 08/26/18 08/26/18 21:15 04:56 07:21 WBC RBC Hgb Hct MCV MCH RDW Plt Count [place] % (Auto) Eos % (Auto) Seg Neuts % (Manual) Lymphocytes % (Manual) Monocytes % (Manual) Eosinophils % (Manual) Basophils % (Manual) Seg Neutrophils # Man D-Dimer Sodium 133 L Chloride 96.3 L BUN 32 H Creatinine 2.1 H Glucose 186 H POC Glucose 176 H 183 H Hemoglobin A1c Calcium 8.3 L Phosphorus Iron Total Creatine Kinase CK-MB (CK-2) Albumin Pvfgx-8-Ttnfmuvxr PEP Interpretation HDL Cholesterol Urine Creatinine Urine Total Protein Allied health notes reviewed: nursing
[2018-08-26] MEDS: ROCEPHIN/NS 1 GM/50 ML 1 GM/50 ML BAG IV SCH (16:22)
[2018-08-26] MEDS: NEURONTIN PO SCH (22:03)
[2018-08-27] MEDS: APRESOLINE PO SCH ×3 (06:13→21:27)
[2018-08-27] MEDS: HumaLOG SUB-Q SCH ×4 (08:25→21:26)
--- NOTE | 2018-08-27 09:27 | Progress Note ---
Assessment and Plan Assessment and plan: Patient is a 58-year-old male with history of hypertension, diabetes, HLD, CKD stage III who presents to [facility] with c/o bilateral lower extremity swelling and shortness of breath. Pt scrotum is swollen obstructing view of his penis. Currently patient is on 2L supplemental O2 with saturation of 94%. D-dimer slightly elevated at 463.24. CK-MB elevated at 5.0; troponin negative. 2D ECHO conclusions Global LV systolic function is normal, estimated estimated EF is 55- 60%; abnormal LV diastolic dysfunction, mild to moderate concentric LV hypertrophy, trace mr, tr, RVSP calculated at 57 mmHg, Acute heart failure with preserved EF. Continue present management. No ACEI or ARB due to advanced renal failure. CXR on 08/19/18 showed no pulmonary edema or pneumonia. Continue hemodialysis per nephrology. Acute on Chronic kidney disease, stage 3: Patient had Perm-catheter placed 08/22 and hemodialysis was initiated. Secondary GN workup was negative. Renal ultrasound on 08/16/18- Chronic medical renal disease. No Hydronephrosis. No ACEI or ARB due to advanced renal failure. Renally dose all medications. Avoid Nephrotoxic agents. Strict I/O's monitoring. Nephrology to determine long-term needs for hemodialysis. Cr 2.4 today Anasarca and scrotal edema. Elevated D-Dimer. 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 Morbidly obese HEENT: Normocephalic, atraumatic Neck: supple, no JVD Heart: S1 and S2 reg, no murmurs, rubs or gallop Lungs: Clear, no crackles, no wheeze Abd: soft, non tender, non distended, normal BS Ext: Bilateral leg edema, no clubbing, no cyanosis, Skin:anasarca Neuro: Awake,alert, oriented x 3, moves all ext, non focal Psych:Normal mood - Constitutional Vitals: Temp Pulse Resp BP Pulse Ox 98.1 F 66 18 130/68 95 08/27/18 07:26 08/27/18 07:26 08/27/18 07:26 08/27/18 07:26 08/27/18 08:32 General appearance: Present: no acute distress, obese Results - Labs CBC & Chem 7: 08/25/18 04:43 08/27/18 08:23 Labs: Laboratory Last Values WBC 5.3 K/mm3 (4.5-11.0) 08/25/18 04:43 RBC 3.41 M/mm3 (3.65-5.03) L 08/25/18 04:43 Hgb 9.1 gm/dl (11.8-15.2) L 08/25/18 04:43 Hct 28.0 % (35.5-45.6) L 08/25/18 04:43 MCV 82 fl (84-94) L 08/25/18 04:43 MCH 27 pg (28-32) L 08/25/18 04:43 MCHC 33 % (32-34) 08/25/18 04:43 RDW 17.0 % (13.2-15.2) H 08/25/18 04:43 Plt Count 133 K/mm3 (140-440) L 08/25/18 04:43 Lymph % (Auto) 26.6 % (13.4-35.0) 08/17/18 07:30 Ford % (Auto) Installation Coordinator 08/25/18 04:43 Eos % (Auto) 6.6 % (0.0-4.3) H 08/17/18 07:30 Baso % (Auto) 1.1 % (0.0-1.8) 08/17/18 07:30 Lymph # 1.3 K/mm3 (1.2-5.4) 08/17/18 07:30 Ford # 0.7 K/mm3 (0.0-0.8) 08/17/18 07:30 Eos # 0.3 K/mm3 (0.0-0.4) 08/17/18 07:30 Baso # 0.1 K/mm3 (0.0-0.1) 08/17/18 07:30 Add Manual Diff Complete 08/25/18 04:43 Total Counted 100 08/25/18 04:43 Seg Neutrophils % 51.7 % (40.0-70.0) 08/17/18 07:30 Seg Neuts % (Manual) 62.0 % (40.0-70.0) 08/25/18 04:43 0 % 08/25/18 04:43 23.0 % (13.4-35.0) 08/25/18 04:43 Reactive Lymphs % (Man) 0 % 08/25/18 04:43 10.0 % (0.0-7.3) H 08/25/18 04:43 4.0 % (0.0-4.3) 08/25/18 04:43 1.0 % (0.0-1.8) 08/25/18 04:43 0 % 08/25/18 04:43 0 % 08/25/18 04:43 0 % 08/25/18 04:43 0 % 08/25/18 04:43 Nucleated RBC % Not Reportable 08/25/18 04:43 Seg Neutrophils # 2.6 K/mm3 (1.8-7.7) 08/17/18 07:30 Seg Neutrophils # Man 3.3 K/mm3 (1.8-7.7) 08/25/18 04:43 Band Neutrophils # 0.0 K/mm3 08/25/18 04:43 1.2 K/mm3 (1.2-5.4) 08/25/18 04:43 Abs React Lymphs (Man) 0.0 K/mm3 08/25/18 04:43 0.5 K/mm3 (0.0-0.8) 08/25/18 04:43 0.2 K/mm3 (0.0-0.4) 08/25/18 04:43 0.1 K/mm3 (0.0-0.1) 08/25/18 04:43 0.0 K/mm3 08/25/18 04:43 0.0 K/mm3 08/25/18 04:43 0.0 K/mm3 08/25/18 04:43 Blast Cells # 0.0 K/mm3 08/25/18 04:43 WBC Morphology Not Reportable 08/25/18 04:43 Hypersegmented Neuts Not Reportable 08/25/18 04:43 Hyposegmented Neuts Not Reportable 08/25/18 04:43 Hypogranular Neuts Not Reportable 08/25/18 04:43 Not Reportable 08/25/18 04:43 Not Reportable 08/25/18 04:43 Not Reportable 08/25/18 04:43 Not Reportable 08/25/18 04:43 Not Reportable 08/25/18 04:43 Not Reportable 08/25/18 04:43 Consistent w auto 08/25/18 04:43 Not Reportable 08/25/18 04:43 Plt Clumps, EDTA Not Reportable 08/25/18 04:43 Rare 08/25/18 04:43 Not Reportable 08/25/18 04:43 Not Reportable 08/25/18 04:43 Plt Morphology Comment Not Reportable 08/25/18 04:43 RBC Morphology Not Reportable 08/25/18 04:43 Dimorphic RBCs Not Reportable 08/25/18 04:43 Not Reportable 08/25/18 04:43 Not Reportable 08/25/18 04:43 1+ 08/25/18 04:43 1+ 08/25/18 04:43 Not Reportable 08/25/18 04:43 Not Reportable 08/25/18 04:43 Not Reportable 08/25/18 04:43 Not Reportable 08/25/18 04:43 Not Reportable 08/25/18 04:43 Not Reportable 08/25/18 04:43 Not Reportable 08/25/18 04:43 Not Reportable 08/25/18 04:43 Not Reportable 08/25/18 04:43 Not Reportable 08/25/18 04:43 Not Reportable 08/25/18 04:43 Not Reportable 08/25/18 04:43 Not Reportable 08/25/18 04:43 Not Reportable 08/25/18 04:43 1+ 08/25/18 04:43 Acanthocytes (Spur) Not Reportable 08/25/18 04:43 Rouleaux Not Reportable 08/25/18 04:43 Not Reportable 08/25/18 04:43 Not Reportable 08/25/18 04:43 Not Reportable 08/25/18 04:43 Not Reportable 08/25/18 04:43 Hem Pathologist Commnt No 08/25/18 04:43 463.24 ng/mlDDU (0-234) H 08/15/18 21:24 Sodium 135 mmol/L (137-145) L 08/27/18 08:23 Potassium 4.2 mmol/L (3.6-5.0) 08/27/18 08:23 Chloride 97.3 mmol/L (98-107) L 08/27/18 08:23 Carbon Dioxide 26 mmol/L (22-30) 08/27/18 08:23 16 mmol/L 08/27/18 08:23 BUN 28 mg/dL (9-20) H 08/27/18 08:23 2.4 mg/dL (0.8-1.5) H 08/27/18 08:23 Estimated GFR 28 ml/min 08/27/18 08:23 12 % 08/27/18 08:23 Glucose 130 mg/dL (75-100) H 08/27/18 08:23 POC Glucose 136 (70-105) H 08/27/18 07:34 7.4 % (4-6) H 08/16/18 03:37 Lactic Acid 0.70 mmol/L (0.7-2.0) 08/20/18 04:53 Calcium 8.0 mg/dL (8.4-10.2) L 08/27/18 08:23 Phosphorus 3.90 mg/dL (2.5-4.5) 08/25/18 04:43 Iron 30 ug/dL (49-181) L 08/16/18 13:52 TIBC 352 mcg/dL (250-450) 08/16/18 13:52 78.2 ng/mL (13.0-400.0) 08/18/18 08:34 0.40 mg/dL (0.1-1.2) 08/15/18 18:54 AST 25 units/L (5-40) 08/15/18 18:54 ALT 15 units/L (7-56) 08/15/18 18:54 74 units/L (35-129) 08/15/18 18:54 340 units/L (55-170) H 08/15/18 21:24 CK-MB (CK-2) 5.0 ng/mL (0.0-4.0) H 08/15/18 21:24 CK-MB (CK-2) Rel Index 1.4 (0-4) 08/15/18 21:24 0.026 ng/mL (0.00-0.029) 08/15/18 21:24 NT-Pro-B Natriuret Pep 877.6 pg/mL (0-900) 08/17/18 11:13 6.1 g/dL (6.1-8.1) 08/17/18 11:13 6.7 g/dL (6.3-8.2) 08/15/18 18:54 2.9 g/dL (3.8-4.8) L 08/17/18 11:13 0.9 % 08/15/18 18:54 0.4 g/dL (0.2-0.3) H 08/17/18 11:13 0.7 g/dL (0.5-0.9) 08/17/18 11:13 0.5 g/dL (0.2-0.5) 08/17/18 11:13 1.1 g/dL (0.8-1.7) 08/17/18 11:13 Abnorm Protein Band 1 see below 08/17/18 11:13 PEP Interpretation see below H 08/17/18 11:13 Triglycerides 140 mg/dL (2-149) 08/16/18 03:37 Cholesterol 147 mg/dL (50-199) 08/16/18 03:37 88 mg/dL (50-130) 08/16/18 03:37 37 mg/dL (40-59) L 08/16/18 03:37 3.97 % 08/16/18 03:37 Straw (Yellow) 08/17/18 04:00 Clear (Clear) 08/17/18 04:00 7.0 (5.0-7.0) 08/17/18 04:00 Ur Specific [place] 1.006 (1.003-1.030) 08/17/18 04:00 100 mg/dl mg/dL (Negative) 08/17/18 04:00 Neg mg/dL (Negative) 08/17/18 04:00 Neg mg/dL (Negative) 08/17/18 04:00 Neg (Negative) 08/17/18 04:00 Neg (Negative) 08/17/18 04:00 Neg (Negative) 08/17/18 04:00 < 2.0 mg/dL (<2.0) 08/17/18 04:00 Ur Leukocyte Esterase Neg (Negative) 08/17/18 04:00 < 1.0 /HPF (0.0-6.0) 08/17/18 04:00 2.0 /HPF (0.0-6.0) 08/17/18 04:00 U Epithel Cells (Auto) 1.0 /HPF (0-13.0) 08/15/18 18:47 1+ /HPF (Negative) 08/17/18 04:00 Few /HPF 08/15/18 18:47 None seen (None Seen) 08/17/18 04:00 Ur Random Creatinine See scanned report 08/17/18 10:40 U Random Total Protein See scanned report 08/17/18 10:40 800 ml 08/20/18 12:09 56.1 mg/dL (0.1-20.0) H 08/20/18 12:09 Height (in) 68.0 inches 08/20/18 12:09 Weight (lb) 348.8 lbs 08/20/18 12:09 6 08/20/18 12:09 Protein/Creatinin Ratio See scanned report 08/17/18 10:40 132 mmol/L 08/17/18 04:00 106 08/17/18 04:00 79 mg/dL (5-11.8) H 08/17/18 04:00 U Abnormal Prot Band 1 See scanned report 08/17/18 10:40 U Abnormal Prot Band 2 See scanned report 08/17/18 10:40 U Abnormal Prot Band 3 See scanned report 08/17/18 10:40 Immunofix Electrophor see below 08/17/18 11:13 JELANI Screen Negative (Negative) 08/17/18 11:13 Double Strand DNA Ab <1 IU/mL (<=4) 08/17/18 11:13 144 mg/dL (82-185) 08/17/18 11:13 23 mg/dL (15-53) 08/17/18 11:13 RPR Nonreactive (Nonreactive) 08/17/18 11:13 Hepatitis A IgM Ab Non-reactive (NonReactive) 08/17/18 11:13 Hep Bs Antigen Non-reactive (Negative) 08/17/18 11:13 Hep B Core IgM Ab Non-reactive (NonReactive) 08/17/18 11:13 Non-reactive (NonReactive) 08/17/18 11:13 HIV 1&2 Antibody Rapid Non react (Non React) 08/17/18 11:13 Non react (Non React) 08/17/18 11:13 Active Medications - Current Medications Current Medications: Generic Name Dose Route Start Last Admin Trade Name Freq PRN Reason Stop Dose Admin Acetaminophen 650 mg 08/16/18 03:07 08/21/18 21:55 Tylenol PO 650 mg Q4H PRN Administration Pain MILD(1-3)/Fever >100.5/FRAIRE Albuterol 2.5 mg 08/16/18 03:07 Proventil IH Q4HRT PRN Shortness Of Breath Aspirin 81 mg 08/16/18 10:00 08/26/18 09:30 Baby Aspirin PO 81 mg QDAY ARLENE Administration Atorvastatin Calcium 40 mg 08/16/18 22:00 08/26/18 22:03 Lipitor PO 40 mg QHS ARLENE Administration Carvedilol 6.25 mg 08/17/18 12:00 08/26/18 22:03 Coreg PO 6.25 mg BID ARLENE Administration Cholecalciferol 5,000 unit 08/16/18 10:00 08/26/18 09:30 Vitamin D3 PO 5,000 unit DAILY ARLENE Administration Dextrose 50 ml 08/16/18 03:13 D50w (25gm) Syringe IV PRN PRN Hypoglycemia Docusate Sodium 100 mg 08/16/18 10:00 08/26/18 22:03 Colace PO 100 mg BID ARLENE Administration Epoetin Keon 10,000 unit 08/18/18 13:00 08/26/18 13:20 Procrit SUB-Q 10,000 unit MOWEFR ARLENE Administration Gabapentin 300 mg 08/16/18 22:00 08/26/18 22:03 Neurontin PO 300 mg QHS ARLENE Administration Heparin Sodium (Porcine) 5,000 unit 08/16/18 10:00 08/26/18 22:03 Heparin SUB-Q 5,000 unit Q12HR ARLENE Administration Hydralazine HCl 50 mg 08/16/18 14:00 08/27/18 06:13 Apresoline PO 50 mg Q8HR ARLENE Administration Ceftriaxone Sodium 1 gm in 50 mls @ 100 mls/hr 08/18/18 15:00 08/26/18 16:22 Rocephin/Ns 1 Gm/50 Ml IV 08/29/18 14:59 100 mls/hr Q24HR ARLENE Administration Protocol Sodium Chloride 100 mls @ 999 mls/hr 08/26/18 10:00 Nacl 0.9% IV JANE PRN Hypotension Sodium Chloride 100 mls @ 999 mls/hr 08/26/18 14:36 Nacl 0.9% IV JANE PRN Hypotension Insulin Human Lispro 0 unit 08/16/18 07:30 08/27/18 08:25 Humalog SUB-Q Not Given ACHS ARLENE Protocol Insulin Human Regular 5 units 08/16/18 07:30 08/26/18 16:23 Humulin R SUB-Q 5 units AC ARLENE Administration Nitroglycerin 0.4 mg 08/16/18 03:07 Nitrostat SL .Q5MIN PRN Chest Pain Ondansetron HCl 4 mg 08/16/18 03:07 08/16/18 16:39 Zofran IV 4 mg Q8H PRN Administration Nausea And Vomiting Oxycodone/Acetaminophen 1 tab 08/16/18 03:07 08/23/18 22:06 Percocet 5/325 PO 1 tab Q6H PRN Administration Pain, Moderate (4-6) Sodium Chloride 10 ml 08/16/18 10:00 08/26/18 22:05 Sodium Chloride Flush Syringe 10 Ml IV 10 ml BID ARLENE Administration Sodium Chloride 10 ml 08/16/18 03:07 08/16/18 06:17 Sodium Chloride Flush Syringe 10 Ml IV 10 ml PRN PRN Administration LINE FLUSH Nutrition/Malnutrition Assess - Dietary Evaluation Nutrition/Malnutrition Findings: Nutrition Notes Start: 08/16/18 09:25 Freq: Status: Active Protocol: Document 08/19/18 14:48 GHASSAN (Rec: 08/19/18 14:54 GHASSAN [email or web address]) Nutrition Notes Initial or Follow up Brief Note Current Diagnosis CKD(stage I-IV),Diabetes Other Pertinent Diagnosis Fluid retention in scrotum and BLE edema, wounds on toe, heel and leg Current Diet Cardiac/consistent CHO Labs/Tests Na 134 BUN 55 Cr 4.4 Pertinent Medications Reviewed [place] Body Weight (kg) 0 Subjective/Other Information Pt reports good appetite; has been consuming 75-100% of meals. Nutrition Intervention Revisit per MD consult or patient Sign Off request:
--- NOTE | 2018-08-27 10:07 | Progress Note ---
Assessment and Plan Cont present cardiac management. Volume optimization per nephrology. The patient has been seen in conjunction with Dr. Fairbanks who agrees with the assessment and plan of care. - Patient Problems (1) Acute heart failure with preserved ejection fraction Current Visit: Yes Status: Acute (2) Acute on chronic renal failure Current Visit: Yes Status: Acute (3) Anasarca Current Visit: Yes Status: Acute (4) Essential hypertension Current Visit: Yes Status: Chronic (5) Hyperlipemia, mixed Current Visit: Yes Status: Chronic (6) Morbid obesity Current Visit: Yes Status: Chronic (7) MARBELLA (obstructive sleep apnea) Current Visit: Yes Status: Chronic (8) Anemia Current Visit: Yes Status: Acute Qualifiers: Anemia type: unspecified type Qualified Code(s): D64.9 - Anemia, unspecified (9) Thrombocytopenia Current Visit: Yes Status: Acute (10) Chronic venous insufficiency Current Visit: Yes Status: Chronic Subjective Date of service: 08/27/18 Principal diagnosis: CHF; CKD;; HANSEN; Elevated d-dimer; Essential HTN; Morbid obesity; MARBELLA Interval history: pt resting comfortably in bed, BLE edema and scrotal edema gradually improving. Objective Last Vital Signs Temp 98.1 F 08/27/18 07:26 Pulse 66 08/27/18 07:26 Resp 18 08/27/18 07:26 BP 130/68 08/27/18 07:26 Pulse Ox 95 08/27/18 08:32 - Physical Examination General: Appears Well HEENT: Positive: PERRL, Mucus Membranes Moist Neck: Positive: neck supple, trachea midline Cardiac: Positive: Reg Rate and Rhythm, S1/S2 Lungs: Positive: Decreased Breath Sounds Neuro: Positive: Grossly Intact Abdomen: Positive: Soft, Active Bowel Sounds. Negative: Tender, Distended Skin: Positive: Clear Incision: Cardiac Cath Site Musculoskeletal: No Pain, Normal Range of Motion Extremities: Present: normal, edema, +1 Edema, Other (scrotal edema) - Labs and Meds Comprehensive Metabolic Panel 08/27/18 Range/Units 08:23 Sodium 135 L (137-145) mmol/L Potassium 4.2 (3.6-5.0) mmol/L Chloride 97.3 L (98-107) mmol/L Carbon Dioxide 26 (22-30) mmol/L BUN 28 H (9-20) mg/dL Creatinine 2.4 H (0.8-1.5) mg/dL Glucose 130 H (75-100) mg/dL Calcium 8.0 L (8.4-10.2) mg/dL - Imaging and Cardiology EKG: image reviewed (sinus rhythm at 76 bpm) Echo: report reviewed (2015 normal LV function.Positive bubble study PFO), other (08/17/2018 normal LV function and diastolic dysfunction mild to moderate LVH no significant regurgitations) - Allied health notes Allied health notes reviewed: nursing
[2018-08-27] MEDS: VITAMIN D3 PO SCH (10:32)
[2018-08-27] MEDS: HEPARIN SUB-Q SCH ×2 (10:33→21:28)
[2018-08-27] MEDS: HumuLIN R SUB-Q SCH ×3 (10:33→16:30)
[2018-08-27] MEDS: ROCEPHIN/NS 1 GM/50 ML 1 GM/50 ML BAG IV SCH ×2 (10:33→16:20)
[2018-08-27] MEDS: SODIUM CHLORIDE FLUSH SYRINGE 10 ML IV SCH ×2 (10:33→21:27)
[2018-08-27] MEDS: COLACE PO SCH ×2 (10:33→21:28)
[2018-08-27] MEDS: BABY ASPIRIN PO SCH (10:33)
[2018-08-27] MEDS: COREG PO SCH ×2 (10:33→21:28)
[2018-08-27] MEDS ORDERED: NACL 0.9% 100 ML IV PRN (10:34)
--- NOTE | 2018-08-27 10:35 | Progress Note ---
Assessment and Plan Severe renal failure, likely ESRD, dialysis dependent: -HD today. Eval for need daily. -First hemodialysis treatment was on 08/22/18. -Secondary GN workup was negative -Renal ultrasound on 08/16/18- Chronic medical renal disease. No Hydronephrosis. -No ACEI or ARB due to advanced renal failure -Renally dose all medications -Avoid Nephrotoxic agents -Strict I/O's monitoring -Will monitor for renal recovery Congestive Diastolic heart failure -Echo- LVEF is 55-60% -S/P IV Lasix -UF with HD -Cardiology onboard Anemia of chronic disease due to CKD: -On Epogen 10,000 units SQ every M,W,F -Monitor H/H Essential Hypertension: - Continue on current regimen - Adjust medications as needed Diabetes Mellitus type 2 on insulin: -On insulin as per primary team Patrick Fonseca MD [phone] Subjective Date of service: 08/27/18 Principal diagnosis: CHF; CKD;; HANSEN; Elevated d-dimer; Essential HTN; Morbid obesity; MARBELLA Interval history: Tolerated HD yesterday. HD again today. Seen on HD. Objective - Exam Narrative Exam: GE: AAOX3, Obese HEENT: PERRLA Neck: Supple Chest: Coarse BS BL CVS: RRR Abd: Soft/Obese, BS+ Ext: 2-3 BLE edema Psyche: Appropriate mood - Vital Signs Vital signs: Vital Signs - 12hr 08/26/18 08/26/18 08/27/18 23:05 23:15 03:35 Temperature 98.3 F 97.5 F L Pulse Rate 76 74 64 Respiratory 16 20 19 Rate Blood Pressure 154/69 132/71 O2 Sat by Pulse 95 97 94 Oximetry 08/27/18 08/27/18 08/27/18 06:13 07:26 08:32 Temperature 98.1 F Pulse Rate 64 66 Respiratory 18 Rate Blood Pressure 132/71 130/68 O2 Sat by Pulse 97 95 Oximetry - Lab 08/25/18 04:43 08/27/18 08:23 Most recent lab results Calcium 8.0 mg/dL (8.4-10.2) L 08/27/18 08:23 Phosphorus 3.90 mg/dL (2.5-4.5) 08/25/18 04:43 56.1 mg/dL (0.1-20.0) H 08/20/18 12:09 132 mmol/L 08/17/18 04:00 79 mg/dL (5-11.8) H 08/17/18 04:00 Medications & Allergies - Medications Allergies/Adverse Reactions: Allergies canagliflozin [From Invokana] Allergy (Verified 08/15/18 17:49) Unknown IV CONTRAST DYE Allergy (Uncoded 08/15/18 17:49) Unknown Home Medications: Home Medications Medication Instructions Recorded Confirmed Last Taken Type Acetaminophen [Acetaminophen ER] 650 mg PO Q8HR PRN 08/16/18 08/16/18 Unknown History Amlodipine Besylate/Benazepril 1 each PO QDAY 08/16/18 08/16/18 Unknown History [Lotrel 10-40 mg] AtorvaSTATin [Lipitor] 40 mg PO QHS 08/16/18 08/16/18 Unknown History Cholecalciferol (Vitamin D3) 5,000 unit PO DAILY 08/16/18 08/16/18 Unknown History [Vitamin D3 5,000 UNIT] Doxylamine Succinate [Unisom] 25 mg PO QHS 08/16/18 08/16/18 Unknown History Gabapentin [Neurontin] 300 mg PO QHS 08/16/18 08/16/18 Unknown History Insulin Regular, Human [Humulin R 90 unit SQ BID 08/16/18 08/16/18 Unknown History U-500 Kwikpen] Loratadine [Claritin] 10 mg PO DAILY PRN 08/16/18 08/16/18 Unknown History Melatonin [Melatonin 3MG TAB] 3 mg PO QHS 08/16/18 08/16/18 Unknown History Niacin [Niacor] 500 mg PO DAILY 08/16/18 08/16/18 Unknown History Omeprazole 20 mg PO DAILY PRN 08/16/18 08/16/18 Unknown History Triamcinolone Acetonide [Nasacort 10.8 ml NS DAILY 08/16/18 08/16/18 Unknown History SPRAY] Active Medications: Generic Name Dose Route Start Last Admin Trade Name Freq PRN Reason Stop Dose Admin Acetaminophen 650 mg 08/16/18 03:07 08/21/18 21:55 Tylenol PO 650 mg Q4H PRN Administration Pain MILD(1-3)/Fever >100.5/FRAIRE Albuterol 2.5 mg 08/16/18 03:07 Proventil IH Q4HRT PRN Shortness Of Breath Aspirin 81 mg 08/16/18 10:00 08/26/18 09:30 Baby Aspirin PO 81 mg QDAY ARLENE Administration Atorvastatin Calcium 40 mg 08/16/18 22:00 08/26/18 22:03 Lipitor PO 40 mg QHS ARLENE Administration Carvedilol 6.25 mg 08/17/18 12:00 08/26/18 22:03 Coreg PO 6.25 mg BID ARLENE Administration Cholecalciferol 5,000 unit 08/16/18 10:00 08/26/18 09:30 Vitamin D3 PO 5,000 unit DAILY ARLENE Administration Dextrose 50 ml 08/16/18 03:13 D50w (25gm) Syringe IV PRN PRN Hypoglycemia Docusate Sodium 100 mg 08/16/18 10:00 08/26/18 22:03 Colace PO 100 mg BID ARLENE Administration Epoetin [place]on 10,000 unit 08/18/18 13:00 08/26/18 13:20 Procrit SUB-Q 10,000 unit MOWEFR ARLENE Administration Gabapentin 300 mg 08/16/18 22:00 08/26/18 22:03 Neurontin PO 300 mg QHS ARLENE Administration Heparin Sodium (Porcine) 5,000 unit 08/16/18 10:00 08/26/18 22:03 Heparin SUB-Q 5,000 unit Q12HR ARLENE Administration Hydralazine HCl 50 mg 08/16/18 14:00 08/27/18 06:13 Apresoline PO 50 mg Q8HR ARLENE Administration Ceftriaxone Sodium 1 gm in 50 mls @ 100 mls/hr 08/18/18 15:00 08/26/18 16:22 Rocephin/Ns 1 Gm/50 Ml IV 08/29/18 14:59 100 mls/hr Q24HR ARLENE Administration Protocol Sodium Chloride 100 mls @ 999 mls/hr 08/26/18 10:00 Nacl 0.9% IV JANE PRN Hypotension Sodium Chloride 100 mls @ 999 mls/hr 08/26/18 14:36 Nacl 0.9% IV JANE PRN Hypotension Insulin Human Lispro 0 unit 08/16/18 07:30 08/27/18 08:25 Humalog SUB-Q Not Given ACHS [facility] Protocol Insulin Human Regular 5 units 08/16/18 07:30 08/26/18 16:23 Humulin R SUB-Q 5 units AC ARLENE Administration Nitroglycerin 0.4 mg 08/16/18 03:07 Nitrostat SL .Q5MIN PRN Chest Pain Ondansetron HCl 4 mg 08/16/18 03:07 08/16/18 16:39 Zofran IV 4 mg Q8H PRN Administration Nausea And Vomiting Oxycodone/Acetaminophen 1 tab 08/16/18 03:07 08/23/18 22:06 Percocet 5/325 PO 1 tab Q6H PRN Administration Pain, Moderate (4-6) Sodium Chloride 10 ml 08/16/18 10:00 08/26/18 22:05 Sodium Chloride Flush Syringe 10 Ml IV 10 ml BID ARLENE Administration Sodium Chloride 10 ml 08/16/18 03:07 08/16/18 06:17 Sodium Chloride Flush Syringe 10 Ml IV 10 ml PRN PRN Administration LINE FLUSH
--- NOTE | 2018-08-27 11:27 | Progress Note ---
Assessment and Plan Patient is on room air and undergoing Hemodialysis at this time. O2 sat 94%. No acute respiratory distress. Recommend to use O2 2L when he is not on BiPAP. - Patient Problems (1) CHF (congestive heart failure) Current Visit: Yes Status: Acute Qualifiers: Heart failure type: diastolic Heart failure chronicity: acute Qualified Code(s): I50.31 - Acute diastolic (congestive) heart failure Plan to address problem: Management as per cardiology. (2) CKD (chronic kidney disease) Current Visit: Yes Status: Acute Qualifiers: Chronic kidney disease stage: stage 3 (moderate) Qualified Code(s): N18.3 - Chronic kidney disease, stage 3 (moderate) Plan to address problem: Patient is on hemodialysis. Management as per nephrology. (3) HANSEN (dyspnea on exertion) Current Visit: Yes Status: Acute Plan to address problem: Albuterol aerosol treatments q 6 hours prn for shortness of breath. O2 2 litres via nasal canula BIPAP during night time and PRN during day time for shortness of breath. Continue S/C Heparin. (4) Elevated d-dimer Current Visit: Yes Status: Acute Plan to address problem: Venous doppler studies reported negative for DVT. Perfusion lung scan reported low probabily for pulmonary emboli. Continue S/C heparin. (5) Essential hypertension Current Visit: Yes Status: Chronic Plan to address problem: Management as per primary care. (6) Morbid obesity Current Visit: Yes Status: Chronic Plan to address problem: Recommend to loose weight. Exercise and diet. (7) Sleep apnea with use of continuous positive airway pressure (CPAP) Current Visit: Yes Status: Acute Plan to address problem: Continue BIPAP as using at home. Subjective Date of service: 08/27/18 Principal diagnosis: CHF; CKD;; HANSEN; Elevated d-dimer; Essential HTN; Morbid obesity; MARBELLA Interval history: Patient is on room air and undergoing Hemodialysis at this time. O2 sat 94%. No acute respiratory distress. Recommend to use O2 2L when he is not on BiPAP. Objective Vital Signs - 12hr 08/27/18 08/27/18 08/27/18 03:35 06:13 07:26 Temperature 97.5 F L 98.1 F Pulse Rate 64 64 66 Respiratory 19 18 Rate Blood Pressure 132/71 132/71 130/68 O2 Sat by Pulse 94 97 Oximetry 08/27/18 08:32 Temperature Pulse Rate Respiratory Rate Blood Pressure O2 Sat by Pulse 95 Oximetry Constitutional: no acute distress, alert, other (Morbidly Obese middle aged CM) Eyes: non-icteric ENT: oropharynx moist, other (mallampati 4) Neck: supple, no JVD, other (large neck circumference) Effort: mildly labored Ascultation: Bilateral: diminished breath sounds, rhonchi (scant in bases) Percussion: Bilateral: not dull Cardiovascular: regular rate and rhythm Gastrointestinal: normoactive bowel sounds, soft, non-tender, other (prot uberant) Integumentary: cellulitis, other (Cellulitis and wounds in both lower legs.) Extremities: no cyanosis, pink and warm, pulses normal, edema (trace to 1+) Neurologic: normal mental status, non-focal exam, pupils equal and round, CN II- XII normal Psychiatric: mood appropriate, affect normal CBC and BMP: 08/25/18 04:43 08/27/18 08:23 ABG, PT/INR, D-dimer: PT/INR, D-dimer 463.24 ng/mlDDU (0-234) H 08/15/18 21:24 Abnormal lab findings: Abnormal Labs 08/15/18 08/15/18 08/15/18 18:02 18:54 18:54 WBC RBC 3.61 L Hgb 9.8 L Hct 30.1 L MCV MCH 27 L RDW 16.8 H Plt Count [place] % (Auto) 10.7 H Eos % (Auto) 5.9 H Seg Neuts % (Manual) Lymphocytes % (Manual) Monocytes % (Manual) Eosinophils % (Manual) Basophils % (Manual) Seg Neutrophils # Man D-Dimer Sodium Chloride 107.7 H BUN 25 H Creatinine 2.5 H Glucose 159 H POC Glucose 124 H Hemoglobin A1c Calcium Phosphorus Iron Total Creatine Kinase CK-MB (CK-2) Albumin 3.2 L Qjwbx-4-Xrggxbded PEP Interpretation HDL Cholesterol Urine Creatinine Urine Total Protein 08/15/18 08/15/18 08/16/18 21:24 21:24 03:37 WBC RBC Hgb Hct MCV MCH RDW Plt Count [place] % (Auto) Eos % (Auto) Seg Neuts % (Manual) Lymphocytes % (Manual) Monocytes % (Manual) Eosinophils % (Manual) Basophils % (Manual) Seg Neutrophils # Man D-Dimer 463.24 H Sodium Chloride BUN Creatinine Glucose POC Glucose Hemoglobin A1c 7.4 H Calcium Phosphorus Iron Total Creatine Kinase 340 H CK-MB (CK-2) 5.0 H Albumin Vctjk-4-Djwfqkfqe PEP Interpretation HDL Cholesterol Urine Creatinine Urine Total Protein 08/16/18 08/16/18 08/16/18 03:37 07:54 12:01 WBC RBC Hgb Hct MCV MCH RDW Plt Count [place] % (Auto) Eos % (Auto) Seg Neuts % (Manual) Lymphocytes % (Manual) Monocytes % (Manual) Eosinophils % (Manual) Basophils % (Manual) Seg Neutrophils # Sadi D-Dimer Sodium Chloride BUN Creatinine Glucose POC Glucose 113 H 179 H Hemoglobin A1c Calcium Phosphorus Iron Total Creatine Kinase CK-MB (CK-2) Albumin Qcdck-5-Tzrtowuzo PEP Interpretation HDL Cholesterol 37 L Urine Creatinine Urine Total Protein 08/16/18 08/16/18 08/16/18 13:52 17:44 21:21 WBC RBC Hgb Hct MCV MCH RDW Plt Count [place] % (Auto) Eos % (Auto) Seg Neuts % (Manual) Lymphocytes % (Manual) Monocytes % (Manual) Eosinophils % (Manual) Basophils % (Manual) Seg Neutrophils # Sadi D-Dimer Sodium Chloride BUN Creatinine Glucose POC Glucose 221 H 165 H Hemoglobin A1c Calcium Phosphorus Iron 30 L Total Creatine Kinase CK-MB (CK-2) Albumin Tknpd-8-Tcmeusece PEP Interpretation HDL Cholesterol Urine Creatinine Urine Total Protein 08/17/18 08/17/18 08/17/18 04:00 07:30 07:30 WBC RBC Hgb 10.3 L Hct 31.5 L MCV 82 L MCH 27 L RDW 16.8 H Plt Count [place] % (Auto) 14.0 H Eos % (Auto) 6.6 H Seg Neuts % (Manual) Lymphocytes % (Manual) Monocytes % (Manual) Eosinophils % (Manual) Basophils % (Manual) Seg Neutrophils # Sadi D-Dimer Sodium Chloride BUN 32 H Creatinine 2.9 H Glucose 180 H POC Glucose Hemoglobin A1c Calcium Phosphorus Iron Total Creatine Kinase CK-MB (CK-2) Albumin Nrngu-8-Aeschnhym PEP Interpretation HDL Cholesterol Urine Creatinine 22.4 H Urine Total Protein 79 H 08/17/18 08/17/18 08/17/18 07:34 11:13 12:17 WBC RBC Hgb Hct MCV MCH RDW Plt Count [place] % (Auto) Eos % (Auto) Seg Neuts % (Manual) Lymphocytes % (Manual) Monocytes % (Manual) Eosinophils % (Manual) Basophils % (Manual) Seg Neutrophils # Sadi D-Dimer Sodium Chloride BUN Creatinine Glucose POC Glucose 169 H 207 H Hemoglobin A1c Calcium Phosphorus Iron Total Creatine Kinase CK-MB (CK-2) Albumin 2.9 L Pxlww-6-Rlsecgyah 0.4 H PEP Interpretation see below H HDL Cholesterol Urine Creatinine Urine Total Protein 08/17/18 08/17/18 08/18/18 16:36 21:17 07:05 WBC RBC Hgb Hct MCV MCH RDW Plt Count [place] % (Auto) Eos % (Auto) Seg Neuts % (Manual) Lymphocytes % (Manual) Monocytes % (Manual) Eosinophils % (Manual) Basophils % (Manual) Seg Neutrophils # Sadi D-Dimer Sodium 134 L Chloride 95.9 L BUN 43 H Creatinine 3.8 H Glucose 150 H POC Glucose 184 H 209 H Hemoglobin A1c Calcium Phosphorus Iron Total Creatine Kinase CK-MB (CK-2) Albumin Zzphd-7-Heuczubye PEP Interpretation HDL Cholesterol Urine Creatinine Urine Total Protein 08/18/18 08/18/18 08/18/18 07:53 08:34 11:53 WBC RBC Hgb 10.8 L Hct 33.8 L MCV MCH 27 L RDW 16.3 H Plt Count [place] % (Auto) Eos % (Auto) Seg Neuts % (Manual) Lymphocytes % (Manual) Monocytes % (Manual) Eosinophils % (Manual) Basophils % (Manual) Seg Neutrophils # Sadi D-Dimer Sodium Chloride BUN Creatinine Glucose POC Glucose 139 H 191 H Hemoglobin A1c Calcium Phosphorus Iron Total Creatine Kinase CK-MB (CK-2) Albumin Cgzzx-0-Yirugifxm PEP Interpretation HDL Cholesterol Urine Creatinine Urine Total Protein 08/18/18 08/18/18 08/19/18 15:54 20:49 05:28 WBC RBC Hgb 9.7 L Hct 30.1 L MCV 82 L MCH 26 L RDW 16.6 H Plt Count 136 L [place] % (Auto) Eos % (Auto) Seg Neuts % (Manual) Lymphocytes % (Manual) Monocytes % (Manual) Eosinophils % (Manual) Basophils % (Manual) Seg Neutrophils # Sadi D-Dimer Sodium Chloride BUN Creatinine Glucose POC Glucose 150 H 138 H Hemoglobin A1c Calcium Phosphorus Iron Total Creatine Kinase CK-MB (CK-2) Albumin Fomoj-3-Gvhfyxabg PEP Interpretation HDL Cholesterol Urine Creatinine Urine Total Protein 08/19/18 08/19/18 08/19/18 05:28 07:43 11:57 WBC RBC Hgb Hct MCV MCH RDW Plt Count [place] % (Auto) Eos % (Auto) Seg Neuts % (Manual) Lymphocytes % (Manual) Monocytes % (Manual) Eosinophils % (Manual) Basophils % (Manual) Seg Neutrophils # Man D-Dimer Sodium 134 L Chloride 96.2 L BUN 55 H Creatinine 4.4 H Glucose 118 H POC Glucose 162 H 280 H Hemoglobin A1c Calcium Phosphorus Iron Total Creatine Kinase CK-MB (CK-2) Albumin Cjwkb-4-Skomjoxdi PEP Interpretation HDL Cholesterol Urine Creatinine Urine Total Protein 08/19/18 08/19/18 08/20/18 15:41 21:44 04:53 WBC 3.5 L RBC 3.58 L Hgb 9.4 L Hct 29.5 L MCV 83 L MCH 26 L RDW 16.4 H Plt Count 121 L [place] % (Auto) Eos % (Auto) Seg Neuts % (Manual) Lymphocytes % (Manual) Monocytes % (Manual) 16.0 H Eosinophils % (Manual) Basophils % (Manual) 3.0 H Seg Neutrophils # Man 1.6 L D-Dimer Sodium Chloride BUN Creatinine Glucose POC Glucose 167 H 234 H Hemoglobin A1c Calcium Phosphorus Iron Total Creatine Kinase CK-MB (CK-2) Albumin Bupnn-8-Iecydrjcc PEP Interpretation HDL Cholesterol Urine Creatinine Urine Total Protein 08/20/18 08/20/18 08/20/18 04:53 08:13 12:09 WBC RBC Hgb Hct MCV MCH RDW Plt Count [place] % (Auto) Eos % (Auto) Seg Neuts % (Manual) Lymphocytes % (Manual) Monocytes % (Manual) Eosinophils % (Manual) Basophils % (Manual) Seg Neutrophils # Man D-Dimer Sodium 136 L Chloride BUN 57 H Creatinine 3.3 H Glucose 136 H POC Glucose 124 H Hemoglobin A1c Calcium Phosphorus 5.50 H Iron Total Creatine Kinase CK-MB (CK-2) Albumin Affxb-2-Airevxqxw PEP Interpretation HDL Cholesterol Urine Creatinine 56.1 H Urine Total Protein 08/20/18 08/20/18 08/20/18 12:49 18:26 20:53 WBC RBC Hgb Hct MCV MCH RDW Plt Count [place] % (Auto) Eos % (Auto) Seg Neuts % (Manual) Lymphocytes % (Manual) Monocytes % (Manual) Eosinophils % (Manual) Basophils % (Manual) Seg Neutrophils # Sadi D-Dimer Sodium Chloride BUN Creatinine Glucose POC Glucose 145 H 175 H 184 H Hemoglobin A1c Calcium Phosphorus Iron Total Creatine Kinase CK-MB (CK-2) Albumin Abvua-6-Fbfkvgrue PEP Interpretation HDL Cholesterol Urine Creatinine Urine Total Protein 08/21/18 08/21/18 08/21/18 04:28 04:28 08:58 WBC 3.8 L RBC 3.42 L Hgb 9.2 L Hct 28.4 L MCV 83 L MCH 27 L RDW 16.4 H Plt Count 126 L [place] % (Auto) Eos % (Auto) Seg Neuts % (Manual) Lymphocytes % (Manual) Monocytes % (Manual) 15.0 H Eosinophils % (Manual) Basophils % (Manual) Seg Neutrophils # Sadi D-Dimer Sodium 134 L Chloride 96.5 L BUN 59 H Creatinine 3.4 H Glucose 190 H POC Glucose 159 H Hemoglobin A1c Calcium Phosphorus 5.10 H Iron Total Creatine Kinase CK-MB (CK-2) Albumin Qxjrj-2-Bdqtlpgiw PEP Interpretation HDL Cholesterol Urine Creatinine Urine Total Protein 08/21/18 08/21/18 08/21/18 12:25 17:10 21:43 WBC RBC Hgb Hct MCV MCH RDW Plt Count [place] % (Auto) Eos % (Auto) Seg Neuts % (Manual) Lymphocytes % (Manual) Monocytes % (Manual) Eosinophils % (Manual) Basophils % (Manual) Seg Neutrophils # Sadi D-Dimer Sodium Chloride BUN Creatinine Glucose POC Glucose 222 H 152 H 150 H Hemoglobin A1c Calcium Phosphorus Iron Total Creatine Kinase CK-MB (CK-2) Albumin Okzmq-7-Crupertni PEP Interpretation HDL Cholesterol Urine Creatinine Urine Total Protein 08/22/18 08/22/18 08/22/18 04:50 04:51 08:08 WBC 3.7 L RBC 3.37 L Hgb 9.0 L Hct 27.8 L MCV 83 L MCH 27 L RDW 16.9 H Plt Count 124 L [place] % (Auto) Eos % (Auto) Seg Neuts % (Manual) Lymphocytes % (Manual) Monocytes % (Manual) 13.0 H Eosinophils % (Manual) 11.0 H Basophils % (Manual) Seg Neutrophils # Sadi 1.6 L D-Dimer Sodium 135 L Chloride 97.4 L BUN 64 H Creatinine 3.5 H Glucose 114 H POC Glucose 117 H Hemoglobin A1c Calcium Phosphorus 4.90 H Iron Total Creatine Kinase CK-MB (CK-2) Albumin Tnbxo-2-Wuhqjnlaz PEP Interpretation HDL Cholesterol Urine Creatinine Urine Total Protein 08/22/18 08/22/18 08/23/18 14:48 21:36 05:09 WBC 4.3 L RBC 3.60 L Hgb 9.6 L Hct 29.6 L MCV 82 L MCH 27 L RDW 16.6 H Plt Count 134 L [place] % (Auto) Eos % (Auto) Seg Neuts % (Manual) 38.0 L Lymphocytes % (Manual) 51.0 H Monocytes % (Manual) 8.0 H Eosinophils % (Manual) Basophils % (Manual) Seg Neutrophils # Man 1.6 L D-Dimer Sodium Chloride BUN Creatinine Glucose POC Glucose 211 H 268 H Hemoglobin A1c Calcium Phosphorus Iron Total Creatine Kinase CK-MB (CK-2) Albumin Ehesr-6-Vophlcpfn PEP Interpretation HDL Cholesterol Urine Creatinine Urine Total Protein 08/23/18 08/23/18 08/23/18 05:09 07:44 14:02 WBC RBC Hgb Hct MCV MCH RDW Plt Count [place] % (Auto) Eos % (Auto) Seg Neuts % (Manual) Lymphocytes % (Manual) Monocytes % (Manual) Eosinophils % (Manual) Basophils % (Manual) Seg Neutrophils # Man D-Dimer Sodium Chloride BUN 45 H Creatinine 2.6 H Glucose 174 H POC Glucose 240 H 161 H Hemoglobin A1c Calcium Phosphorus Iron Total Creatine Kinase CK-MB (CK-2) Albumin Bzugq-8-Giqgrksff PEP Interpretation HDL Cholesterol Urine Creatinine Urine Total Protein 08/23/18 08/23/18 08/24/18 17:33 20:32 05:09 WBC RBC Hgb Hct MCV MCH RDW Plt Count [place] % (Auto) Eos % (Auto) Seg Neuts % (Manual) Lymphocytes % (Manual) Monocytes % (Manual) Eosinophils % (Manual) Basophils % (Manual) Seg Neutrophils # Man D-Dimer Sodium 135 L Chloride 97.4 L BUN 38 H Creatinine 2.3 H Glucose 183 H POC Glucose 217 H 208 H Hemoglobin A1c Calcium Phosphorus Iron Total Creatine Kinase CK-MB (CK-2) Albumin Reqys-7-Yqihcilae PEP Interpretation HDL Cholesterol Urine Creatinine Urine Total Protein 08/24/18 08/24/18 08/24/18 07:49 11:32 16:44 WBC RBC Hgb Hct MCV MCH RDW Plt Count [place] % (Auto) Eos % (Auto) Seg Neuts % (Manual) Lymphocytes % (Manual) Monocytes % (Manual) Eosinophils % (Manual) Basophils % (Manual) Seg Neutrophils # Man D-Dimer Sodium Chloride BUN Creatinine Glucose POC Glucose 171 H 271 H 168 H Hemoglobin A1c Calcium Phosphorus Iron Total Creatine Kinase CK-MB (CK-2) Albumin Bpdwe-3-Fxpstupld PEP Interpretation HDL Cholesterol Urine Creatinine Urine Total Protein 08/24/18 08/25/18 08/25/18 20:54 04:43 04:43 WBC RBC 3.41 L Hgb 9.1 L Hct 28.0 L MCV 82 L MCH 27 L RDW 17.0 H Plt Count 133 L [place] % (Auto) Eos % (Auto) Seg Neuts % (Manual) Lymphocytes % (Manual) Monocytes % (Manual) 10.0 H Eosinophils % (Manual) Basophils % (Manual) Seg Neutrophils # Man D-Dimer Sodium 136 L Chloride BUN 44 H Creatinine 2.6 H Glucose 193 H POC Glucose 214 H Hemoglobin A1c Calcium Phosphorus Iron Total Creatine Kinase CK-MB (CK-2) Albumin Irvfg-8-Ytsnwymre PEP Interpretation HDL Cholesterol Urine Creatinine Urine Total Protein 08/25/18 08/25/18 08/25/18 08:04 13:43 16:39 WBC RBC Hgb Hct MCV MCH RDW Plt Count [place] % (Auto) Eos % (Auto) Seg Neuts % (Manual) Lymphocytes % (Manual) Monocytes % (Manual) Eosinophils % (Manual) Basophils % (Manual) Seg Neutrophils # Man D-Dimer Sodium Chloride BUN Creatinine Glucose POC Glucose 167 H 193 H 249 H Hemoglobin A1c Calcium Phosphorus Iron Total Creatine Kinase CK-MB (CK-2) Albumin Xixoe-4-Odwhqysuj PEP Interpretation HDL Cholesterol Urine Creatinine Urine Total Protein 08/25/18 08/26/18 08/26/18 21:15 04:56 07:21 WBC RBC Hgb Hct MCV MCH RDW Plt Count [place] % (Auto) Eos % (Auto) Seg Neuts % (Manual) Lymphocytes % (Manual) Monocytes % (Manual) Eosinophils % (Manual) Basophils % (Manual) Seg Neutrophils # Man D-Dimer Sodium 133 L Chloride 96.3 L BUN 32 H Creatinine 2.1 H Glucose 186 H POC Glucose 176 H 183 H Hemoglobin A1c Calcium 8.3 L Phosphorus Iron Total Creatine Kinase CK-MB (CK-2) Albumin Gzuhv-4-Zyosrjlft PEP Interpretation HDL Cholesterol Urine Creatinine Urine Total Protein 08/26/18 08/26/18 08/26/18 14:34 16:34 21:07 WBC RBC Hgb Hct MCV MCH RDW Plt Count [place] % (Auto) Eos % (Auto) Seg Neuts % (Manual) Lymphocytes % (Manual) Monocytes % (Manual) Eosinophils % (Manual) Basophils % (Manual) Seg Neutrophils # Man D-Dimer Sodium Chloride BUN Creatinine Glucose POC Glucose 165 H 206 H 185 H Hemoglobin A1c Calcium Phosphorus Iron Total Creatine Kinase CK-MB (CK-2) Albumin Klwkb-4-Yfkrzygxr PEP Interpretation HDL Cholesterol Urine Creatinine Urine Total Protein 08/27/18 08/27/18 07:34 08:23 WBC RBC Hgb Hct MCV MCH RDW Plt Count [place] % (Auto) Eos % (Auto) Seg Neuts % (Manual) Lymphocytes % (Manual) Monocytes % (Manual) Eosinophils % (Manual) Basophils % (Manual) Seg Neutrophils # Man D-Dimer Sodium 135 L Chloride 97.3 L BUN 28 H Creatinine 2.4 H Glucose 130 H POC Glucose 136 H Hemoglobin A1c Calcium 8.0 L Phosphorus Iron Total Creatine Kinase CK-MB (CK-2) Albumin Ectqf-2-Hrzxdklwv PEP Interpretation HDL Cholesterol Urine Creatinine Urine Total Protein Allied health notes reviewed: nursing
[2018-08-27] MEDS: PROCRIT SUB-Q SCH (14:26)
[2018-08-27] MEDS ORDERED: NACL 0.9 (PRIMING MACHINE ONLY DIALYSIS) MC ONE (15:08)
[2018-08-27] MEDS: NEURONTIN PO SCH (21:27)
[2018-08-28] MEDS: APRESOLINE PO SCH ×3 (05:23→21:31)
[2018-08-28 06:33] LABS: Calcium 8.5 mg/dL (8.4-10.2)
--- NOTE | 2018-08-28 08:31 | Progress Note ---
Assessment and Plan CHF (congestive heart failure) CKD (chronic kidney disease) HANSEN (dyspnea on exertion) Elevated d-dimer Essential hypertension Morbid obesity Sleep apnea with use of continuous positive airway pressure (CPAP) - continue supplemental oxygen as needed to keep O2 sats > 90% - continue bronchodilators with pulmonary hygiene per RT - continue HD/UF for toxin and volume clearance - suspect deconditioning playing a major role in HANSEN; continue PT/OT as tolerated - continue BIPAP therapy qhs re: MARBELLA/OHS - weight loss counseled - VQ scan and lower extremity dopplers normal; no further VTE w/up - continue chronic disease meds per attending - neurology evaluation ongoing - GI & VTE prophylaxis - Flu & pneumovax per protocol - outpatient pulmonary clinic f/up Subjective Date of service: 08/28/18 Principal diagnosis: CHF; CKD;; HANSEN; Elevated d-dimer; Essential HTN; Morbid obesity; MARBELLA Interval history: Patient is seen today for: CHF (congestive heart failure); CKD (chronic kidney disease); HANSEN (dyspnea on exertion); Elevated d-dimer; Essential hypertension; Morbid obesity; Sleep apnea with use of continuous positive airway pressure (CPAP) Seen and examined at bedside; 24hour events reviewed; nursing and respiratory care staff consulted; no adverse overnight events reported to me; denies acute chest pains or palpitations but still SOB Objective Vital Signs - 12hr 08/27/18 08/27/18 08/27/18 21:27 21:28 22:00 Temperature Pulse Rate 76 76 73 Respiratory Rate Blood Pressure 143/69 143/69 O2 Sat by Pulse Oximetry 08/27/18 08/27/18 08/28/18 23:00 23:17 04:01 Temperature 98.0 F 98.2 F Pulse Rate 76 67 72 Respiratory 20 18 18 Rate Blood Pressure 132/61 113/52 O2 Sat by Pulse 96 92 96 Oximetry 08/28/18 05:23 Temperature Pulse Rate 72 Respiratory Rate Blood Pressure 113/52 O2 Sat by Pulse Oximetry Constitutional: no acute distress, alert, other (Morbidly Obese middle aged CM) Eyes: non-icteric ENT: oropharynx moist, other (mallampati 4) Neck: supple, no JVD, other (large neck circumference) Effort: mildly labored Ascultation: Bilateral: diminished breath sounds, rhonchi (scant in bases) Percussion: Bilateral: not dull Cardiovascular: regular rate and rhythm Gastrointestinal: normoactive bowel sounds, soft, non-tender, other (protuberant) Integumentary: cellulitis, other (Cellulitis and wounds in both lower legs.) Extremities: no cyanosis, pink and warm, pulses normal, edema (trace to 1+) Neurologic: normal mental status, non-focal exam, pupils equal and round, CN II- XII normal Psychiatric: mood appropriate, affect normal CBC and BMP: 08/25/18 04:43 08/29/18 04:29 ABG, PT/INR, D-dimer: PT/INR, D-dimer 463.24 ng/mlDDU (0-234) H 08/15/18 21:24 Abnormal lab findings: Abnormal Labs 08/15/18 08/15/18 08/15/18 18:02 18:54 18:54 WBC RBC 3.61 L Hgb 9.8 L Hct 30.1 L MCV MCH 27 L RDW 16.8 H Plt Count [place] % (Auto) 10.7 H Eos % (Auto) 5.9 H Seg Neuts % (Manual) Lymphocytes % (Manual) Monocytes % (Manual) Eosinophils % (Manual) Basophils % (Manual) Seg Neutrophils # Man D-Dimer Sodium Chloride 107.7 H BUN 25 H Creatinine 2.5 H Glucose 159 H POC Glucose 124 H Hemoglobin A1c Calcium Phosphorus Iron Total Creatine Kinase CK-MB (CK-2) Albumin 3.2 L Llwry-0-Pvawlfqlg PEP Interpretation HDL Cholesterol Urine Creatinine Urine Total Protein 08/15/18 08/15/18 08/16/18 21:24 21:24 03:37 WBC RBC Hgb Hct MCV MCH RDW Plt Count [place] % (Auto) Eos % (Auto) Seg Neuts % (Manual) Lymphocytes % (Manual) Monocytes % (Manual) Eosinophils % (Manual) Basophils % (Manual) Seg Neutrophils # Man D-Dimer 463.24 H Sodium Chloride BUN Creatinine Glucose POC Glucose Hemoglobin A1c 7.4 H Calcium Phosphorus Iron Total Creatine Kinase 340 H CK-MB (CK-2) 5.0 H Albumin Kwkgf-2-Bfeuxzbik PEP Interpretation HDL Cholesterol Urine Creatinine Urine Total Protein 08/16/18 08/16/18 08/16/18 03:37 07:54 12:01 WBC RBC Hgb Hct MCV MCH RDW Plt Count [place] % (Auto) Eos % (Auto) Seg Neuts % (Manual) Lymphocytes % (Manual) Monocytes % (Manual) Eosinophils % (Manual) Basophils % (Manual) Seg Neutrophils # Sadi D-Dimer Sodium Chloride BUN Creatinine Glucose POC Glucose 113 H 179 H Hemoglobin A1c Calcium Phosphorus Iron Total Creatine Kinase CK-MB (CK-2) Albumin Turfu-3-Ncnxmhjbt PEP Interpretation HDL Cholesterol 37 L Urine Creatinine Urine Total Protein 08/16/18 08/16/18 08/16/18 13:52 17:44 21:21 WBC RBC Hgb Hct MCV MCH RDW Plt Count [place] % (Auto) Eos % (Auto) Seg Neuts % (Manual) Lymphocytes % (Manual) Monocytes % (Manual) Eosinophils % (Manual) Basophils % (Manual) Seg Neutrophils # Sadi D-Dimer Sodium Chloride BUN Creatinine Glucose POC Glucose 221 H 165 H Hemoglobin A1c Calcium Phosphorus Iron 30 L Total Creatine Kinase CK-MB (CK-2) Albumin Shnju-3-Lzrgpapbv PEP Interpretation HDL Cholesterol Urine Creatinine Urine Total Protein 08/17/18 08/17/18 08/17/18 04:00 07:30 07:30 WBC RBC Hgb 10.3 L Hct 31.5 L MCV 82 L MCH 27 L RDW 16.8 H Plt Count [place] % (Auto) 14.0 H Eos % (Auto) 6.6 H Seg Neuts % (Manual) Lymphocytes % (Manual) Monocytes % (Manual) Eosinophils % (Manual) Basophils % (Manual) Seg Neutrophils # Sadi D-Dimer Sodium Chloride BUN 32 H Creatinine 2.9 H Glucose 180 H POC Glucose Hemoglobin A1c Calcium Phosphorus Iron Total Creatine Kinase CK-MB (CK-2) Albumin Doblt-9-Jdbrwsoyv PEP Interpretation HDL Cholesterol Urine Creatinine 22.4 H Urine Total Protein 79 H 08/17/18 08/17/18 08/17/18 07:34 11:13 12:17 WBC RBC Hgb Hct MCV MCH RDW Plt Count [place] % (Auto) Eos % (Auto) Seg Neuts % (Manual) Lymphocytes % (Manual) Monocytes % (Manual) Eosinophils % (Manual) Basophils % (Manual) Seg Neutrophils # Sadi D-Dimer Sodium Chloride BUN Creatinine Glucose POC Glucose 169 H 207 H Hemoglobin A1c Calcium Phosphorus Iron Total Creatine Kinase CK-MB (CK-2) Albumin 2.9 L Ikhqm-7-Wzkoaemdi 0.4 H PEP Interpretation see below H HDL Cholesterol Urine Creatinine Urine Total Protein 08/17/18 08/17/18 08/18/18 16:36 21:17 07:05 WBC RBC Hgb Hct MCV MCH RDW Plt Count [place] % (Auto) Eos % (Auto) Seg Neuts % (Manual) Lymphocytes % (Manual) Monocytes % (Manual) Eosinophils % (Manual) Basophils % (Manual) Seg Neutrophils # Sadi D-Dimer Sodium 134 L Chloride 95.9 L BUN 43 H Creatinine 3.8 H Glucose 150 H POC Glucose 184 H 209 H Hemoglobin A1c Calcium Phosphorus Iron Total Creatine Kinase CK-MB (CK-2) Albumin Zsikl-2-Dzkdatuxx PEP Interpretation HDL Cholesterol Urine Creatinine Urine Total Protein 08/18/18 08/18/18 08/18/18 07:53 08:34 11:53 WBC RBC Hgb 10.8 L Hct 33.8 L MCV MCH 27 L RDW 16.3 H Plt Count [place] % (Auto) Eos % (Auto) Seg Neuts % (Manual) Lymphocytes % (Manual) Monocytes % (Manual) Eosinophils % (Manual) Basophils % (Manual) Seg Neutrophils # Sadi D-Natalya Sodium Chloride BUN Creatinine Glucose POC Glucose 139 H 191 H Hemoglobin A1c Calcium Phosphorus Iron Total Creatine Kinase CK-MB (CK-2) Albumin Jhflq-5-Ggdjgiigl PEP Interpretation HDL Cholesterol Urine Creatinine Urine Total Protein 08/18/18 08/18/18 08/19/18 15:54 20:49 05:28 WBC RBC Hgb 9.7 L Hct 30.1 L MCV 82 L MCH 26 L RDW 16.6 H Plt Count 136 L [place] % (Auto) Eos % (Auto) Seg Neuts % (Manual) Lymphocytes % (Manual) Monocytes % (Manual) Eosinophils % (Manual) Basophils % (Manual) Seg Neutrophils # Sadi D-Natalya Sodium Chloride BUN Creatinine Glucose POC Glucose 150 H 138 H Hemoglobin A1c Calcium Phosphorus Iron Total Creatine Kinase CK-MB (CK-2) Albumin Hdyci-9-Gsgsuxllf PEP Interpretation HDL Cholesterol Urine Creatinine Urine Total Protein 08/19/18 08/19/18 08/19/18 05:28 07:43 11:57 WBC RBC Hgb Hct MCV MCH RDW Plt Count [place] % (Auto) Eos % (Auto) Seg Neuts % (Manual) Lymphocytes % (Manual) Monocytes % (Manual) Eosinophils % (Manual) Basophils % (Manual) Seg Neutrophils # Sadi D-Dimer Sodium 134 L Chloride 96.2 L BUN 55 H Creatinine 4.4 H Glucose 118 H POC Glucose 162 H 280 H Hemoglobin A1c Calcium Phosphorus Iron Total Creatine Kinase CK-MB (CK-2) Albumin Ccwur-3-Kkywkcahe PEP Interpretation HDL Cholesterol Urine Creatinine Urine Total Protein 08/19/18 08/19/18 08/20/18 15:41 21:44 04:53 WBC 3.5 L RBC 3.58 L Hgb 9.4 L Hct 29.5 L MCV 83 L MCH 26 L RDW 16.4 H Plt Count 121 L [place] % (Auto) Eos % (Auto) Seg Neuts % (Manual) Lymphocytes % (Manual) Monocytes % (Manual) 16.0 H Eosinophils % (Manual) Basophils % (Manual) 3.0 H Seg Neutrophils # Man 1.6 L D-Dimer Sodium Chloride BUN Creatinine Glucose POC Glucose 167 H 234 H Hemoglobin A1c Calcium Phosphorus Iron Total Creatine Kinase CK-MB (CK-2) Albumin Jpsvx-6-Tzlkpscik PEP Interpretation HDL Cholesterol Urine Creatinine Urine Total Protein 08/20/18 08/20/18 08/20/18 04:53 08:13 12:09 WBC RBC Hgb Hct MCV MCH RDW Plt Count [place] % (Auto) Eos % (Auto) Seg Neuts % (Manual) Lymphocytes % (Manual) Monocytes % (Manual) Eosinophils % (Manual) Basophils % (Manual) Seg Neutrophils # Man D-Dimer Sodium 136 L Chloride BUN 57 H Creatinine 3.3 H Glucose 136 H POC Glucose 124 H Hemoglobin A1c Calcium Phosphorus 5.50 H Iron Total Creatine Kinase CK-MB (CK-2) Albumin Vwulf-6-Ffyqqpaiv PEP Interpretation HDL Cholesterol Urine Creatinine 56.1 H Urine Total Protein 08/20/18 08/20/18 08/20/18 12:49 18:26 20:53 WBC RBC Hgb Hct MCV MCH RDW Plt Count [place] % (Auto) Eos % (Auto) Seg Neuts % (Manual) Lymphocytes % (Manual) Monocytes % (Manual) Eosinophils % (Manual) Basophils % (Manual) Seg Neutrophils # Man D-Dimer Sodium Chloride BUN Creatinine Glucose POC Glucose 145 H 175 H 184 H Hemoglobin A1c Calcium Phosphorus Iron Total Creatine Kinase CK-MB (CK-2) Albumin Yrwup-5-Xgrwvcecq PEP Interpretation HDL Cholesterol Urine Creatinine Urine Total Protein 08/21/18 08/21/18 08/21/18 04:28 04:28 08:58 WBC 3.8 L RBC 3.42 L Hgb 9.2 L Hct 28.4 L MCV 83 L MCH 27 L RDW 16.4 H Plt Count 126 L [place] % (Auto) Eos % (Auto) Seg Neuts % (Manual) Lymphocytes % (Manual) Monocytes % (Manual) 15.0 H Eosinophils % (Manual) Basophils % (Manual) Seg Neutrophils # Man D-Dimer Sodium 134 L Chloride 96.5 L BUN 59 H Creatinine 3.4 H Glucose 190 H POC Glucose 159 H Hemoglobin A1c Calcium Phosphorus 5.10 H Iron Total Creatine Kinase CK-MB (CK-2) Albumin Uwejg-2-Nuvsawuba PEP Interpretation HDL Cholesterol Urine Creatinine Urine Total Protein 08/21/18 08/21/18 08/21/18 12:25 17:10 21:43 WBC RBC Hgb Hct MCV MCH RDW Plt Count [place] % (Auto) Eos % (Auto) Seg Neuts % (Manual) Lymphocytes % (Manual) Monocytes % (Manual) Eosinophils % (Manual) Basophils % (Manual) Seg Neutrophils # Man D-Dimer Sodium Chloride BUN Creatinine Glucose POC Glucose 222 H 152 H 150 H Hemoglobin A1c Calcium Phosphorus Iron Total Creatine Kinase CK-MB (CK-2) Albumin Ozvig-1-Didacfveh PEP Interpretation HDL Cholesterol Urine Creatinine Urine Total Protein 08/22/18 08/22/18 08/22/18 04:50 04:51 08:08 WBC 3.7 L RBC 3.37 L Hgb 9.0 L Hct 27.8 L MCV 83 L MCH 27 L RDW 16.9 H Plt Count 124 L [place] % (Auto) Eos % (Auto) Seg Neuts % (Manual) Lymphocytes % (Manual) Monocytes % (Manual) 13.0 H Eosinophils % (Manual) 11.0 H Basophils % (Manual) Seg Neutrophils # Man 1.6 L D-Dimer Sodium 135 L Chloride 97.4 L BUN 64 H Creatinine 3.5 H Glucose 114 H POC Glucose 117 H Hemoglobin A1c Calcium Phosphorus 4.90 H Iron Total Creatine Kinase CK-MB (CK-2) Albumin Pazzw-6-Rpdfiyeiv PEP Interpretation HDL Cholesterol Urine Creatinine Urine Total Protein 08/22/18 08/22/18 08/23/18 14:48 21:36 05:09 WBC 4.3 L RBC 3.60 L Hgb 9.6 L Hct 29.6 L MCV 82 L MCH 27 L RDW 16.6 H Plt Count 134 L [place] % (Auto) Eos % (Auto) Seg Neuts % (Manual) 38.0 L Lymphocytes % (Manual) 51.0 H Monocytes % (Manual) 8.0 H Eosinophils % (Manual) Basophils % (Manual) Seg Neutrophils # Sadi 1.6 L D-Dimer Sodium Chloride BUN Creatinine Glucose POC Glucose 211 H 268 H Hemoglobin A1c Calcium Phosphorus Iron Total Creatine Kinase CK-MB (CK-2) Albumin Kgrvk-8-Bmdmbfval PEP Interpretation HDL Cholesterol Urine Creatinine Urine Total Protein 08/23/18 08/23/18 08/23/18 05:09 07:44 14:02 WBC RBC Hgb Hct MCV MCH RDW Plt Count [place] % (Auto) Eos % (Auto) Seg Neuts % (Manual) Lymphocytes % (Manual) Monocytes % (Manual) Eosinophils % (Manual) Basophils % (Manual) Seg Neutrophils # Sadi D-Dimer Sodium Chloride BUN 45 H Creatinine 2.6 H Glucose 174 H POC Glucose 240 H 161 H Hemoglobin A1c Calcium Phosphorus Iron Total Creatine Kinase CK-MB (CK-2) Albumin Iykbd-7-Lwcvdzvbj PEP Interpretation HDL Cholesterol Urine Creatinine Urine Total Protein 08/23/18 08/23/18 08/24/18 17:33 20:32 05:09 WBC RBC Hgb Hct MCV MCH RDW Plt Count [place] % (Auto) Eos % (Auto) Seg Neuts % (Manual) Lymphocytes % (Manual) Monocytes % (Manual) Eosinophils % (Manual) Basophils % (Manual) Seg Neutrophils # Sadi D-Dimer Sodium 135 L Chloride 97.4 L BUN 38 H Creatinine 2.3 H Glucose 183 H POC Glucose 217 H 208 H Hemoglobin A1c Calcium Phosphorus Iron Total Creatine Kinase CK-MB (CK-2) Albumin Mtmge-2-Kdooqycva PEP Interpretation HDL Cholesterol Urine Creatinine Urine Total Protein 08/24/18 08/24/18 08/24/18 07:49 11:32 16:44 WBC RBC Hgb Hct MCV MCH RDW Plt Count [place] % (Auto) Eos % (Auto) Seg Neuts % (Manual) Lymphocytes % (Manual) Monocytes % (Manual) Eosinophils % (Manual) Basophils % (Manual) Seg Neutrophils # Man D-Dimer Sodium Chloride BUN Creatinine Glucose POC Glucose 171 H 271 H 168 H Hemoglobin A1c Calcium Phosphorus Iron Total Creatine Kinase CK-MB (CK-2) Albumin Wwabn-9-Kmoqnuwtg PEP Interpretation HDL Cholesterol Urine Creatinine Urine Total Protein 08/24/18 08/25/18 08/25/18 20:54 04:43 04:43 WBC RBC 3.41 L Hgb 9.1 L Hct 28.0 L MCV 82 L MCH 27 L RDW 17.0 H Plt Count 133 L [place] % (Auto) Eos % (Auto) Seg Neuts % (Manual) Lymphocytes % (Manual) Monocytes % (Manual) 10.0 H Eosinophils % (Manual) Basophils % (Manual) Seg Neutrophils # Sadi D-Dimer Sodium 136 L Chloride BUN 44 H Creatinine 2.6 H Glucose 193 H POC Glucose 214 H Hemoglobin A1c Calcium Phosphorus Iron Total Creatine Kinase CK-MB (CK-2) Albumin Xtter-9-Qikugnqmh PEP Interpretation HDL Cholesterol Urine Creatinine Urine Total Protein 08/25/18 08/25/18 08/25/18 08:04 13:43 16:39 WBC RBC Hgb Hct MCV MCH RDW Plt Count [place] % (Auto) Eos % (Auto) Seg Neuts % (Manual) Lymphocytes % (Manual) Monocytes % (Manual) Eosinophils % (Manual) Basophils % (Manual) Seg Neutrophils # Sadi D-Dimer Sodium Chloride BUN Creatinine Glucose POC Glucose 167 H 193 H 249 H Hemoglobin A1c Calcium Phosphorus Iron Total Creatine Kinase CK-MB (CK-2) Albumin Qynzk-0-Fkxvjijio PEP Interpretation HDL Cholesterol Urine Creatinine Urine Total Protein 08/25/18 08/26/18 08/26/18 21:15 04:56 07:21 WBC RBC Hgb Hct MCV MCH RDW Plt Count [place] % (Auto) Eos % (Auto) Seg Neuts % (Manual) Lymphocytes % (Manual) Monocytes % (Manual) Eosinophils % (Manual) Basophils % (Manual) Seg Neutrophils # Sadi D-Dimer Sodium 133 L Chloride 96.3 L BUN 32 H Creatinine 2.1 H Glucose 186 H POC Glucose 176 H 183 H Hemoglobin A1c Calcium 8.3 L Phosphorus Iron Total Creatine Kinase CK-MB (CK-2) Albumin Wedng-6-Dlhuachaq PEP Interpretation HDL Cholesterol Urine Creatinine Urine Total Protein 08/26/18 08/26/18 08/26/18 14:34 16:34 21:07 WBC RBC Hgb Hct MCV MCH RDW Plt Count [place] % (Auto) Eos % (Auto) Seg Neuts % (Manual) Lymphocytes % (Manual) Monocytes % (Manual) Eosinophils % (Manual) Basophils % (Manual) Seg Neutrophils # Sadi D-Dimer Sodium Chloride BUN Creatinine Glucose POC Glucose 165 H 206 H 185 H Hemoglobin A1c Calcium Phosphorus Iron Total Creatine Kinase CK-MB (CK-2) Albumin Vzdtd-4-Eiznldyio PEP Interpretation HDL Cholesterol Urine Creatinine Urine Total Protein 08/27/18 08/27/18 08/27/18 07:34 08:23 16:31 WBC RBC Hgb Hct MCV MCH RDW Plt Count [place] % (Auto) Eos % (Auto) Seg Neuts % (Manual) Lymphocytes % (Manual) Monocytes % (Manual) Eosinophils % (Manual) Basophils % (Manual) Seg Neutrophils # Man D-Dimer Sodium 135 L Chloride 97.3 L BUN 28 H Creatinine 2.4 H Glucose 130 H POC Glucose 136 H 229 H Hemoglobin A1c Calcium 8.0 L Phosphorus Iron Total Creatine Kinase CK-MB (CK-2) Albumin Qfwxq-8-Thgaahcqg PEP Interpretation HDL Cholesterol Urine Creatinine Urine Total Protein 08/27/18 08/28/18 08/28/18 21:32 04:40 07:48 WBC RBC Hgb Hct MCV MCH RDW Plt Count [place] % (Auto) Eos % (Auto) Seg Neuts % (Manual) Lymphocytes % (Manual) Monocytes % (Manual) Eosinophils % (Manual) Basophils % (Manual) Seg Neutrophils # Man D-Dimer Sodium 135 L Chloride 97.9 L BUN 25 H Creatinine 2.2 H Glucose 118 H POC Glucose 142 H 120 H Hemoglobin A1c Calcium Phosphorus Iron Total Creatine Kinase CK-MB (CK-2) Albumin Owobx-1-Jzdjyvuin PEP Interpretation HDL Cholesterol Urine Creatinine Urine Total Protein Allied health notes reviewed: nursing
--- NOTE | 2018-08-28 08:53 | Progress Note ---
Assessment and Plan Assessment and plan: Patient is a 58-year-old male with history of hypertension, diabetes, HLD, CKD stage III who presents to [facility] ED with c/o bilateral lower extremity swelling and shortness of breath. Pt scrotum is swollen obstructing view of his penis. Currently patient is on 2L supplemental O2 with saturation of 94%. D-dimer slightly elevated at 463.24. CK-MB elevated at 5.0; troponin negative. 2D ECHO conclusions Global LV systolic function is normal, estimated estimated EF is 55- 60%; abnormal LV diastolic dysfunction, mild to moderate concentric LV hypertrophy, trace mr, tr, RVSP calculated at 57 mmHg, Acute heart failure with preserved EF. Continue present management. No ACEI or ARB due to advanced renal failure. CXR on 08/19/18 showed no pulmonary edema or pneumonia. Continue hemodialysis per nephrology. Acute on Chronic kidney disease, stage 3: Patient had Perm-catheter placed 08/22 and hemodialysis was initiated. Secondary GN workup was negative. Renal ultrasound on 08/16/18- Chronic medical renal disease. No Hydronephrosis. No ACEI or ARB due to advanced renal failure. Renally dose all medications. Avoid Nephrotoxic agents. Strict I/O's monitoring. Nephrology to determine long-term needs for hemodialysis. Cr 2.2 today. Still monitoring for Renal Recovery Anasarca and scrotal edema. Elevated D-Dimer. V/Q scan negative Hypertensive urgency: iv antihypertensives as needed, low salt diet DM type 2; ada and ssi HLD: treat with statins Malnutrition mild to moderate: counseling done, consulted Service Department Manager Right toe pressure ulcer, poa, at least stage 3, heel ulcers bilateral also: see admission photos, local wound care done, continue Wound care Morbid obese, BMI 49: counseled on lifestyle modification and weight reduction Full code status History Interval history: Feels better Less swelling Less shortness of breath Hospitalist Physical - Physical exam Narrative exam: Gen: Not in acute distress,Sitting up. Morbidly obese HEENT: Normocephalic, atraumatic Neck: supple, no JVD Heart: S1 and S2 reg, no murmurs, rubs or gallop Lungs: Clear, no crackles, no wheeze Abd: soft, non tender, non distended, normal BS Ext: Bilateral leg edema, no clubbing, no cyanosis, Skin:anasarca Neuro: Awake,alert, oriented x 3, moves all ext, non focal Psych:Normal mood - Constitutional Vitals: Temp Pulse Resp BP Pulse Ox 98.2 F 72 18 113/52 96 08/28/18 04:01 08/28/18 05:23 08/28/18 04:01 08/28/18 05:23 08/28/18 04:01 General appearance: Present: no acute distress, obese Results - Labs CBC & Chem 7: 08/25/18 04:43 08/28/18 04:40 Labs: Laboratory Last Values WBC 5.3 K/mm3 (4.5-11.0) 08/25/18 04:43 RBC 3.41 M/mm3 (3.65-5.03) L 08/25/18 04:43 Hgb 9.1 gm/dl (11.8-15.2) L 08/25/18 04:43 Hct 28.0 % (35.5-45.6) L 08/25/18 04:43 MCV 82 fl (84-94) L 08/25/18 04:43 MCH 27 pg (28-32) L 08/25/18 04:43 MCHC 33 % (32-34) 08/25/18 04:43 RDW 17.0 % (13.2-15.2) H 08/25/18 04:43 Plt Count 133 K/mm3 (140-440) L 08/25/18 04:43 Lymph % (Auto) 26.6 % (13.4-35.0) 08/17/18 07:30 [place] % (Auto) [employer] 08/25/18 04:43 Eos % (Auto) 6.6 % (0.0-4.3) H 08/17/18 07:30 Baso % (Auto) 1.1 % (0.0-1.8) 08/17/18 07:30 Lymph # 1.3 K/mm3 (1.2-5.4) 08/17/18 07:30 [place] # 0.7 K/mm3 (0.0-0.8) 08/17/18 07:30 Eos # 0.3 K/mm3 (0.0-0.4) 08/17/18 07:30 Baso # 0.1 K/mm3 (0.0-0.1) 08/17/18 07:30 Add Manual Diff Complete 08/25/18 04:43 Total Counted 100 08/25/18 04:43 Seg Neutrophils % 51.7 % (40.0-70.0) 08/17/18 07:30 Seg Neuts % (Manual) 62.0 % (40.0-70.0) 08/25/18 04:43 0 % 08/25/18 04:43 23.0 % (13.4-35.0) 08/25/18 04:43 Reactive Lymphs % (Man) 0 % 08/25/18 04:43 10.0 % (0.0-7.3) H 08/25/18 04:43 4.0 % (0.0-4.3) 08/25/18 04:43 1.0 % (0.0-1.8) 08/25/18 04:43 0 % 08/25/18 04:43 0 % 08/25/18 04:43 0 % 08/25/18 04:43 0 % 08/25/18 04:43 Nucleated RBC % Not Reportable 08/25/18 04:43 Seg Neutrophils # 2.6 K/mm3 (1.8-7.7) 08/17/18 07:30 Seg Neutrophils # Man 3.3 K/mm3 (1.8-7.7) 08/25/18 04:43 Band Neutrophils # 0.0 K/mm3 08/25/18 04:43 1.2 K/mm3 (1.2-5.4) 08/25/18 04:43 Abs React Lymphs (Man) 0.0 K/mm3 08/25/18 04:43 0.5 K/mm3 (0.0-0.8) 08/25/18 04:43 0.2 K/mm3 (0.0-0.4) 08/25/18 04:43 0.1 K/mm3 (0.0-0.1) 08/25/18 04:43 0.0 K/mm3 08/25/18 04:43 0.0 K/mm3 08/25/18 04:43 0.0 K/mm3 08/25/18 04:43 Blast Cells # 0.0 K/mm3 08/25/18 04:43 WBC Morphology Not Reportable 08/25/18 04:43 Hypersegmented Neuts Not Reportable 08/25/18 04:43 Hyposegmented Neuts Not Reportable 08/25/18 04:43 Hypogranular Neuts Not Reportable 08/25/18 04:43 Not Reportable 08/25/18 04:43 Not Reportable 08/25/18 04:43 Not Reportable 08/25/18 04:43 Not Reportable 08/25/18 04:43 Not Reportable 08/25/18 04:43 Not Reportable 08/25/18 04:43 Consistent w auto 08/25/18 04:43 Not Reportable 08/25/18 04:43 Plt Clumps, EDTA Not Reportable 08/25/18 04:43 Rare 08/25/18 04:43 Not Reportable 08/25/18 04:43 Not Reportable 08/25/18 04:43 Plt Morphology Comment Not Reportable 08/25/18 04:43 RBC Morphology Not Reportable 08/25/18 04:43 Dimorphic RBCs Not Reportable 08/25/18 04:43 Not Reportable 08/25/18 04:43 Not Reportable 08/25/18 04:43 1+ 08/25/18 04:43 1+ 08/25/18 04:43 Not Reportable 08/25/18 04:43 Not Reportable 08/25/18 04:43 Not Reportable 08/25/18 04:43 Not Reportable 08/25/18 04:43 Not Reportable 08/25/18 04:43 Not Reportable 08/25/18 04:43 Not Reportable 08/25/18 04:43 Not Reportable 08/25/18 04:43 Not Reportable 08/25/18 04:43 Not Reportable 08/25/18 04:43 Not Reportable 08/25/18 04:43 Not Reportable 08/25/18 04:43 Not Reportable 08/25/18 04:43 Not Reportable 08/25/18 04:43 1+ 08/25/18 04:43 Acanthocytes (Spur) Not Reportable 08/25/18 04:43 Rouleaux Not Reportable 08/25/18 04:43 Not Reportable 08/25/18 04:43 Not Reportable 08/25/18 04:43 Not Reportable 08/25/18 04:43 Not Reportable 08/25/18 04:43 Hem Pathologist Commnt No 08/25/18 04:43 463.24 ng/mlDDU (0-234) H 08/15/18 21:24 Sodium 135 mmol/L (137-145) L 08/28/18 04:40 Potassium 4.0 mmol/L (3.6-5.0) 08/28/18 04:40 Chloride 97.9 mmol/L (98-107) L 08/28/18 04:40 Carbon Dioxide 25 mmol/L (22-30) 08/28/18 04:40 16 mmol/L 08/28/18 04:40 BUN 25 mg/dL (9-20) H 08/28/18 04:40 2.2 mg/dL (0.8-1.5) H 08/28/18 04:40 Estimated GFR 31 ml/min 08/28/18 04:40 11 % 08/28/18 04:40 Glucose 118 mg/dL (75-100) H 08/28/18 04:40 POC Glucose 120 (70-105) H 08/28/18 07:48 7.4 % (4-6) H 08/16/18 03:37 Lactic Acid 0.70 mmol/L (0.7-2.0) 08/20/18 04:53 Calcium 8.5 mg/dL (8.4-10.2) 08/28/18 04:40 Phosphorus 3.90 mg/dL (2.5-4.5) 08/25/18 04:43 Iron 30 ug/dL (49-181) L 08/16/18 13:52 TIBC 352 mcg/dL (250-450) 08/16/18 13:52 78.2 ng/mL (13.0-400.0) 08/18/18 08:34 0.40 mg/dL (0.1-1.2) 08/15/18 18:54 AST 25 units/L (5-40) 08/15/18 18:54 ALT 15 units/L (7-56) 08/15/18 18:54 74 units/L (35-129) 08/15/18 18:54 340 units/L (55-170) H 08/15/18 21:24 CK-MB (CK-2) 5.0 ng/mL (0.0-4.0) H 08/15/18 21:24 CK-MB (CK-2) Rel Index 1.4 (0-4) 08/15/18 21:24 0.026 ng/mL (0.00-0.029) 08/15/18 21:24 NT-Pro-B Natriuret Pep 877.6 pg/mL (0-900) 08/17/18 11:13 6.1 g/dL (6.1-8.1) 08/17/18 11:13 6.7 g/dL (6.3-8.2) 08/15/18 18:54 2.9 g/dL (3.8-4.8) L 08/17/18 11:13 0.9 % 08/15/18 18:54 0.4 g/dL (0.2-0.3) H 08/17/18 11:13 0.7 g/dL (0.5-0.9) 08/17/18 11:13 0.5 g/dL (0.2-0.5) 08/17/18 11:13 1.1 g/dL (0.8-1.7) 08/17/18 11:13 Abnorm Protein Band 1 see below 08/17/18 11:13 PEP Interpretation see below H 08/17/18 11:13 Triglycerides 140 mg/dL (2-149) 08/16/18 03:37 Cholesterol 147 mg/dL (50-199) 08/16/18 03:37 88 mg/dL (50-130) 08/16/18 03:37 37 mg/dL (40-59) L 08/16/18 03:37 3.97 % 08/16/18 03:37 Straw (Yellow) 08/17/18 04:00 Clear (Clear) 08/17/18 04:00 7.0 (5.0-7.0) 08/17/18 04:00 Ur Specific [place] 1.006 (1.003-1.030) 08/17/18 04:00 100 mg/dl mg/dL (Negative) 08/17/18 04:00 Neg mg/dL (Negative) 08/17/18 04:00 Neg mg/dL (Negative) 08/17/18 04:00 Neg (Negative) 08/17/18 04:00 Neg (Negative) 08/17/18 04:00 Neg (Negative) 08/17/18 04:00 < 2.0 mg/dL (<2.0) 08/17/18 04:00 Ur Leukocyte Esterase Neg (Negative) 08/17/18 04:00 < 1.0 /HPF (0.0-6.0) 08/17/18 04:00 2.0 /HPF (0.0-6.0) 08/17/18 04:00 U Epithel Cells (Auto) 1.0 /HPF (0-13.0) 08/15/18 18:47 1+ /HPF (Negative) 08/17/18 04:00 Few /HPF 08/15/18 18:47 None seen (None Seen) 08/17/18 04:00 Ur Random Creatinine See scanned report 08/17/18 10:40 U Random Total Protein See scanned report 08/17/18 10:40 800 ml 08/20/18 12:09 56.1 mg/dL (0.1-20.0) H 08/20/18 12:09 Height (in) 68.0 inches 08/20/18 12:09 Weight (lb) 348.8 lbs 08/20/18 12:09 6 08/20/18 12:09 Protein/Creatinin Ratio See scanned report 08/17/18 10:40 132 mmol/L 08/17/18 04:00 106 08/17/18 04:00 79 mg/dL (5-11.8) H 08/17/18 04:00 U Abnormal Prot Band 1 See scanned report 08/17/18 10:40 U Abnormal Prot Band 2 See scanned report 08/17/18 10:40 U Abnormal Prot Band 3 See scanned report 08/17/18 10:40 Immunofix Electrophor see below 08/17/18 11:13 JELANI Screen Negative (Negative) 08/17/18 11:13 Double Strand DNA Ab <1 IU/mL (<=4) 08/17/18 11:13 144 mg/dL (82-185) 08/17/18 11:13 23 mg/dL (15-53) 08/17/18 11:13 RPR Nonreactive (Nonreactive) 08/17/18 11:13 Hepatitis A IgM Ab Non-reactive (NonReactive) 08/17/18 11:13 Hep Bs Antigen Non-reactive (Negative) 08/17/18 11:13 Hep B Core IgM Ab Non-reactive (NonReactive) 08/17/18 11:13 Non-reactive (NonReactive) 08/17/18 11:13 HIV 1&2 Antibody Rapid Non react (Non React) 08/17/18 11:13 Non react (Non React) 08/17/18 11:13 Active Medications - Current Medications Current Medications: Generic Name Dose Route Start Last Admin Trade Name Freq PRN Reason Stop Dose Admin Acetaminophen 650 mg 08/16/18 03:07 08/21/18 21:55 Tylenol PO 650 mg Q4H PRN Administration Pain MILD(1-3)/Fever >100.5/FRAIRE Albuterol 2.5 mg 08/16/18 03:07 Proventil IH Q4HRT PRN Shortness Of Breath Aspirin 81 mg 08/16/18 10:00 08/27/18 10:33 Baby Aspirin PO 81 mg QDAY ARLENE Administration Atorvastatin Calcium 40 mg 08/16/18 22:00 08/27/18 21:27 Lipitor PO 40 mg QHS ARLENE Administration Carvedilol 6.25 mg 08/17/18 12:00 08/27/18 21:28 Coreg PO 6.25 mg BID ARLENE Administration Cholecalciferol 5,000 unit 08/16/18 10:00 08/27/18 10:32 Vitamin D3 PO 5,000 unit DAILY ARLENE Administration Dextrose 50 ml 08/16/18 03:13 D50w (25gm) Syringe IV PRN PRN Hypoglycemia Docusate Sodium 100 mg 08/16/18 10:00 08/27/18 21:28 Colace PO 100 mg BID ARLENE Administration Epoetin Keon 10,000 unit 08/18/18 13:00 08/27/18 14:26 Procrit SUB-Q 10,000 unit MOWEFR ARLENE Administration Gabapentin 300 mg 08/16/18 22:00 08/27/18 21:27 Neurontin PO 300 mg QHS ARLENE Administration Heparin Sodium (Porcine) 5,000 unit 08/16/18 10:00 08/27/18 21:28 Heparin SUB-Q 5,000 unit Q12HR ARLENE Administration Hydralazine HCl 50 mg 08/16/18 14:00 08/28/18 05:23 Apresoline PO 50 mg Q8HR ARLENE Administration Ceftriaxone Sodium 1 gm in 50 mls @ 100 mls/hr 08/18/18 15:00 08/27/18 16:20 Rocephin/Ns 1 Gm/50 Ml IV 08/29/18 14:59 100 mls/hr Q24HR ARLENE Administration Protocol Sodium Chloride 100 mls @ 999 mls/hr 08/27/18 10:34 Nacl 0.9% IV JANE PRN Hypotension Insulin Human Lispro 0 unit 08/16/18 07:30 08/27/18 21:26 Humalog SUB-Q Not Given ACHS ARLENE Protocol Insulin Human Regular 5 units 08/16/18 07:30 08/27/18 16:30 Humulin R SUB-Q 5 units AC ARLENE Administration Nitroglycerin 0.4 mg 08/16/18 03:07 Nitrostat SL .Q5MIN PRN Chest Pain Ondansetron HCl 4 mg 08/16/18 03:07 08/16/18 16:39 Zofran IV 4 mg Q8H PRN Administration Nausea And Vomiting Oxycodone/Acetaminophen 1 tab 08/16/18 03:07 08/23/18 22:06 Percocet 5/325 PO 1 tab Q6H PRN Administration Pain, Moderate (4-6) Sodium Chloride 10 ml 08/16/18 10:00 08/27/18 21:27 Sodium Chloride Flush Syringe 10 Ml IV 10 ml BID ARLENE Administration Sodium Chloride 10 ml 08/16/18 03:07 08/16/18 06:17 Sodium Chloride Flush Syringe 10 Ml IV 10 ml PRN PRN Administration LINE FLUSH Nutrition/Malnutrition Assess - Dietary Evaluation Nutrition/Malnutrition Findings: Nutrition Notes Start: 08/16/18 09:25 Freq: Status: Active Protocol: Document 08/19/18 14:48 GHASSAN (Rec: 08/19/18 14:54 GHASSAN [email or web address]) Nutrition Notes Initial or Follow up Brief Note Current Diagnosis CKD(stage I-IV),Diabetes Other Pertinent Diagnosis Fluid retention in scrotum and BLE edema, wounds on toe, heel and leg Current Diet Cardiac/consistent CHO Labs/Tests Na 134 BUN 55 Cr 4.4 Pertinent Medications Reviewed [place] Body Weight (kg) 0 Subjective/Other Information Pt reports good appetite; has been consuming 75-100% of meals. Nutrition Intervention Revisit per MD consult or patient Sign Off request:
[2018-08-28] MEDS ORDERED: NACL 0.9% 100 ML IV PRN (09:53)
[2018-08-28] MEDS: ROCEPHIN/NS 1 GM/50 ML 1 GM/50 ML BAG IV SCH ×2 (10:00→21:35)
[2018-08-28] MEDS: HumaLOG SUB-Q SCH ×4 (10:04→21:34)
[2018-08-28] MEDS: COREG PO SCH ×2 (10:18→21:32)
[2018-08-28] MEDS: COLACE PO SCH ×2 (10:18→21:32)
[2018-08-28] MEDS: VITAMIN D3 PO SCH (10:18)
[2018-08-28] MEDS: HumuLIN R SUB-Q SCH ×3 (10:19→18:45)
[2018-08-28] MEDS: BABY ASPIRIN PO SCH (10:19)
[2018-08-28] MEDS: HEPARIN SUB-Q SCH ×2 (10:19→21:33)
[2018-08-28] MEDS: SODIUM CHLORIDE FLUSH SYRINGE 10 ML IV SCH ×2 (10:21→21:34)
--- NOTE | 2018-08-28 10:39 | Progress Note ---
Assessment and Plan Cont present cardiac management. Volume optimization per nephrology. The patient has been seen in conjunction with Dr. Fairbanks who agrees with the assessment and plan of care. - Patient Problems (1) Acute heart failure with preserved ejection fraction Current Visit: Yes Status: Acute (2) Acute on chronic renal failure Current Visit: Yes Status: Acute (3) Anasarca Current Visit: Yes Status: Acute (4) Essential hypertension Current Visit: Yes Status: Chronic (5) Hyperlipemia, mixed Current Visit: Yes Status: Chronic (6) Morbid obesity Current Visit: Yes Status: Chronic (7) MARBELLA (obstructive sleep apnea) Current Visit: Yes Status: Chronic (8) Anemia Current Visit: Yes Status: Acute Qualifiers: Anemia type: unspecified type Qualified Code(s): D64.9 - Anemia, unspecified (9) Thrombocytopenia Current Visit: Yes Status: Acute (10) Chronic venous insufficiency Current Visit: Yes Status: Chronic Subjective Date of service: 08/28/18 Principal diagnosis: CHF; CKD;; HANSEN; Elevated d-dimer; Essential HTN; Morbid obesity; MARBELLA Interval history: pt resting comfortably, BLE edema and scrotal edema gradually improving. Objective Last Vital Signs Temp 98.2 F 08/28/18 04:01 Pulse 80 08/28/18 10:13 Resp 18 08/28/18 04:01 BP 136/69 08/28/18 10:13 Pulse Ox 95 08/28/18 10:13 - Physical Examination General: Appears Well HEENT: Positive: PERRL, Mucus Membranes Moist Neck: Positive: neck supple, trachea midline Cardiac: Positive: Reg Rate and Rhythm, S1/S2 Lungs: Positive: Decreased Breath Sounds Neuro: Positive: Grossly Intact Abdomen: Positive: Soft, Active Bowel Sounds. Negative: Tender, Distended Skin: Positive: Clear Incision: Cardiac Cath Site Musculoskeletal: No Pain, Normal Range of Motion Extremities: Present: normal, edema, +1 Edema, Other (scrotal edema) - Labs and Meds Comprehensive Metabolic Panel 08/28/18 Range/Units 04:40 Sodium 135 L (137-145) mmol/L Potassium 4.0 (3.6-5.0) mmol/L Chloride 97.9 L (98-107) mmol/L Carbon Dioxide 25 (22-30) mmol/L BUN 25 H (9-20) mg/dL Creatinine 2.2 H (0.8-1.5) mg/dL Glucose 118 H (75-100) mg/dL Calcium 8.5 (8.4-10.2) mg/dL - Imaging and Cardiology EKG: image reviewed (sinus rhythm at 76 bpm) Echo: report reviewed (2015 normal LV function.Positive bubble study PFO), other (08/17/2018 normal LV function and diastolic dysfunction mild to moderate LVH no significant regurgitations) - Allied health notes Allied health notes reviewed: nursing
--- NOTE | 2018-08-28 11:05 | Progress Note ---
Assessment and Plan Severe renal failure, likely ESRD, dialysis dependent: -cont daily UF - pt will need to continue dialysis upon discharge, can be discharged from renal standpoint when cleared by other services. -First hemodialysis treatment was on 08/22/18. -Secondary GN workup was negative -Renal ultrasound on 08/16/18- Chronic medical renal disease. No Hydronephrosis. -No ACEI or ARB due to advanced renal failure -Renally dose all medications -Avoid Nephrotoxic agents -Strict I/O's monitoring -Will monitor for renal recovery Congestive Diastolic heart failure -Echo- LVEF is 55-60% -S/P IV Lasix -UF with HD -Cardiology onboard Anemia of chronic disease due to CKD: -On Epogen 10,000 units SQ every M,W,F -Monitor H/H Essential Hypertension: - Continue on current regimen - Adjust medications as needed Diabetes Mellitus type 2 on insulin: -On insulin as per primary team Martell Perdue MD [phone] Subjective Date of service: 08/28/18 Principal diagnosis: CHF; CKD;; HANSEN; Elevated d-dimer; Essential HTN; Morbid obe sity; MARBELLA Interval history: seen during HD, tolerating Objective - Vital Signs Vital signs: Vital Signs - 12hr 08/27/18 08/28/18 08/28/18 23:17 04:01 05:23 Temperature 98.0 F 98.2 F Pulse Rate 67 72 72 Respiratory 18 18 Rate Blood Pressure 132/61 113/52 113/52 O2 Sat by Pulse 92 96 Oximetry 08/28/18 10:13 Temperature Pulse Rate 80 Respiratory Rate Blood Pressure 136/69 O2 Sat by Pulse 95 Oximetry - General Appearance General appearance: well-developed, well-nourished, obese EENT: ATNC, PERRL, mucous membranes moist Neck: no JVD, no carotid bruit Respiratory: Present: Clear to Ascultation. Absent: Rales, Ronchi Cardiology: regular, S1S2 Gastrointestinal: normoactive bowel sounds, no tenderness, no distended Integumentary: no rash, warm and dry Neurologic: no focal deficit, no asterixis, alert and oriented x3 Musculoskeletal: other (Anasarca ) Psychiatric: mood/affect appropriate, cooperative - Lab 08/25/18 04:43 08/28/18 04:40 Most recent lab results Calcium 8.5 mg/dL (8.4-10.2) 08/28/18 04:40 Phosphorus 3.90 mg/dL (2.5-4.5) 08/25/18 04:43 56.1 mg/dL (0.1-20.0) H 08/20/18 12:09 132 mmol/L 08/17/18 04:00 79 mg/dL (5-11.8) H 08/17/18 04:00 Medications & Allergies - Medications Allergies/Adverse Reactions: Allergies canagliflozin [From Invokana] Allergy (Verified 08/15/18 17:49) Unknown IV CONTRAST DYE Allergy (Uncoded 08/15/18 17:49) Unknown Home Medications: Home Medications Medication Instructions Recorded Confirmed Last Taken Type Acetaminophen [Acetaminophen ER] 650 mg PO Q8HR PRN 08/16/18 08/16/18 Unknown History Amlodipine Besylate/Benazepril 1 each PO QDAY 08/16/18 08/16/18 Unknown History [Lotrel 10-40 mg] AtorvaSTATin [Lipitor] 40 mg PO QHS 08/16/18 08/16/18 Unknown History Cholecalciferol (Vitamin D3) 5,000 unit PO DAILY 08/16/18 08/16/18 Unknown History [Vitamin D3 5,000 UNIT] Doxylamine Succinate [Unisom] 25 mg PO QHS 08/16/18 08/16/18 Unknown History Gabapentin [Neurontin] 300 mg PO QHS 08/16/18 08/16/18 Unknown History Insulin Regular, Human [Humulin R 90 unit SQ BID 08/16/18 08/16/18 Unknown History U-500 Kwikpen] Loratadine [Claritin] 10 mg PO DAILY PRN 08/16/18 08/16/18 Unknown History Melatonin [Melatonin 3MG TAB] 3 mg PO QHS 08/16/18 08/16/18 Unknown History Niacin [Niacor] 500 mg PO DAILY 08/16/18 08/16/18 Unknown History Omeprazole 20 mg PO DAILY PRN 08/16/18 08/16/18 Unknown History Triamcinolone Acetonide [Nasacort 10.8 ml NS DAILY 08/16/18 08/16/18 Unknown History SPRAY] Active Medications: Generic Name Dose Route Start Last Admin Trade Name Freq PRN Reason Stop Dose Admin Acetaminophen 650 mg 08/16/18 03:07 08/21/18 21:55 Tylenol PO 650 mg Q4H PRN Administration Pain MILD(1-3)/Fever >100.5/FRAIRE Albuterol 2.5 mg 08/16/18 03:07 Proventil IH Q4HRT PRN Shortness Of Breath Aspirin 81 mg 08/16/18 10:00 08/28/18 10:19 Baby Aspirin PO 81 mg QDAY ARLENE Administration Atorvastatin Calcium 40 mg 08/16/18 22:00 08/27/18 21:27 Lipitor PO 40 mg QHS ARLENE Administration Carvedilol 6.25 mg 08/17/18 12:00 08/28/18 10:18 Coreg PO 6.25 mg BID ARLENE Administration Cholecalciferol 5,000 unit 08/16/18 10:00 08/28/18 10:18 Vitamin D3 PO 5,000 unit DAILY ARLENE Administration Dextrose 50 ml 08/16/18 03:13 D50w (25gm) Syringe IV PRN PRN Hypoglycemia Docusate Sodium 100 mg 08/16/18 10:00 08/28/18 10:18 Colace PO 100 mg BID ARLENE Administration Epoetin Keon 10,000 unit 08/18/18 13:00 08/27/18 14:26 Procrit SUB-Q 10,000 unit MOWEFR ARLENE Administration Gabapentin 300 mg 08/16/18 22:00 08/27/18 21:27 Neurontin PO 300 mg QHS ARLENE Administration Heparin Sodium (Porcine) 5,000 unit 08/16/18 10:00 08/28/18 10:19 Heparin SUB-Q 5,000 unit Q12HR ARELNE Administration Hydralazine HCl 50 mg 08/16/18 14:00 08/28/18 05:23 Apresoline PO 50 mg Q8HR ARLENE Administration Ceftriaxone Sodium 1 gm in 50 mls @ 100 mls/hr 08/18/18 15:00 08/27/18 16:20 Rocephin/Ns 1 Gm/50 Ml IV 08/29/18 14:59 100 mls/hr Q24HR ARLENE Administration Protocol Sodium Chloride 100 mls @ 999 mls/hr 08/28/18 09:53 Nacl 0.9% IV JANE PRN Hypotension Insulin Human Lispro 0 unit 08/16/18 07:30 08/28/18 10:04 Humalog SUB-Q Not Given ACHS [facility] Protocol Insulin Human Regular 5 units 08/16/18 07:30 08/28/18 10:19 Humulin R SUB-Q 5 units AC ARLENE Administration Nitroglycerin 0.4 mg 08/16/18 03:07 Nitrostat SL .Q5MIN PRN Chest Pain Ondansetron HCl 4 mg 08/16/18 03:07 08/16/18 16:39 Zofran IV 4 mg Q8H PRN Administration Nausea And Vomiting Oxycodone/Acetaminophen 1 tab 08/16/18 03:07 08/23/18 22:06 Percocet 5/325 PO 1 tab Q6H PRN Administration Pain, Moderate (4-6) Sodium Chloride 10 ml 08/16/18 10:00 08/28/18 10:21 Sodium Chloride Flush Syringe 10 Ml IV 10 ml BID ARLENE Administration Sodium Chloride 10 ml 08/16/18 03:07 08/16/18 06:17 Sodium Chloride Flush Syringe 10 Ml IV 10 ml PRN PRN Administration LINE FLUSH
[2018-08-28] MEDS: NEURONTIN PO SCH (21:32)
[2018-08-29] MEDS: APRESOLINE PO SCH ×3 (05:36→21:54)
[2018-08-29 07:13] LABS: Calcium 8.7 mg/dL (8.4-10.2)
--- NOTE | 2018-08-29 07:44 | Progress Note ---
Assessment and Plan CHF (congestive heart failure) CKD (chronic kidney disease) HANSEN (dyspnea on exertion) Elevated d-dimer Essential hypertension Morbid obesity Sleep apnea with use of continuous positive airway pressure (CPAP) - continue supplemental oxygen as needed to keep O2 sats > 90% - continue bronchodilators with pulmonary hygiene per RT - continue HD/UF for toxin and volume clearance - PT/OT- increase activity as tolerated - continue BIPAP therapy qhs and prn during the day - weight loss counseled, life style modifications - continue chronic disease management per admitting physician - Stress ulcer prophylaxis - Flu & pneumovax per protocol - outpatient pulmonary clinic f/up on discharge Subjective Date of service: 08/29/18 Principal diagnosis: CHF; CKD;; HANSEN; Elevated d-dimer; Essential HTN; Morbid obesity; MARBELLA Interval history: Patient is seen today for: CHF (congestive heart failure); CKD (chronic kidney disease); HANSEN (dyspnea on exertion); Elevated d-dimer; Essential hypertension; Morbid obesity; Sleep apnea with use of continuous positive airway pressure (CPAP) Seen and examined at bedside; 24hour events reviewed, vitals, labs, medications, cahrt reviewed.; nursing and respiratory care staff consulted; no adverse overnight events reported to me; had HD yesterday, tolerated it well denies acute chest pains or palpitations , no shortness of breath, lying peacefully in bed with CPAP on; no fevers, no chills, no nausea or vomiting, no diarrhea Objective Vital Signs - 12hr 08/28/18 08/28/18 08/28/18 20:06 21:31 21:32 Temperature 98.4 F Pulse Rate 68 73 73 Respiratory 18 Rate Blood Pressure 138/70 138/70 138/70 O2 Sat by Pulse 94 Oximetry 08/28/18 08/28/18 08/29/18 22:30 23:41 00:35 Temperature 98.5 F Pulse Rate 75 65 75 Respiratory 18 18 Rate Blood Pressure 138/74 O2 Sat by Pulse 96 95 Oximetry 08/29/18 08/29/18 08/29/18 01:49 04:16 04:21 Temperature 98.2 F Pulse Rate 71 80 76 Respiratory 18 18 Rate Blood Pressure 119/60 O2 Sat by Pulse 96 94 Oximetry 08/29/18 05:36 Temperature Pulse Rate 74 Respiratory Rate Blood Pressure 119/60 O2 Sat by Pulse Oximetry Constitutional: no acute distress, alert, other (Morbidly Obese middle aged CM, on CPAP with FFM) Eyes: non-icteric ENT: oropharynx moist Neck: supple, no lymphadenopathy, no JVD, other (large neck circumference) Effort: mildly labored Ascultation: Bilateral: diminished breath sounds, rhonchi (scant in bases) Percussion: Bilateral: not dull Cardiovascular: regular rate and rhythm Gastrointestinal: normoactive bowel sounds, soft, non-tender, other (protuberant) Integumentary: cellulitis, other (Cellulitis and wounds in both lower legs.) Extremities: no cyanosis, pink and warm, pulses normal, edema (trace to 1+, chronic venous stasis changes) Neurologic: normal mental status, non-focal exam, pupils equal and round, CN II- XII normal Psychiatric: mood appropriate, affect normal CBC and BMP: 08/25/18 04:43 08/29/18 04:29 ABG, PT/INR, D-dimer: PT/INR, D-dimer 463.24 ng/mlDDU (0-234) H 08/15/18 21:24 Abnormal lab findings: Abnormal Labs 08/15/18 08/15/18 08/15/18 18:02 18:54 18:54 WBC RBC 3.61 L Hgb 9.8 L Hct 30.1 L MCV MCH 27 L RDW 16.8 H Plt Count [place] % (Auto) 10.7 H Eos % (Auto) 5.9 H Seg Neuts % (Manual) Lymphocytes % (Manual) Monocytes % (Manual) Eosinophils % (Manual) Basophils % (Manual) Seg Neutrophils # Man D-Dimer Sodium Chloride 107.7 H BUN 25 H Creatinine 2.5 H Glucose 159 H POC Glucose 124 H Hemoglobin A1c Calcium Phosphorus Iron Total Creatine Kinase CK-MB (CK-2) Albumin 3.2 L Ndmea-7-Fkmwifgcd PEP Interpretation HDL Cholesterol Urine Creatinine Urine Total Protein 08/15/18 08/15/18 08/16/18 21:24 21:24 03:37 WBC RBC Hgb Hct MCV MCH RDW Plt Count [place] % (Auto) Eos % (Auto) Seg Neuts % (Manual) Lymphocytes % (Manual) Monocytes % (Manual) Eosinophils % (Manual) Basophils % (Manual) Seg Neutrophils # Man D-Dimer 463.24 H Sodium Chloride BUN Creatinine Glucose POC Glucose Hemoglobin A1c 7.4 H Calcium Phosphorus Iron Total Creatine Kinase 340 H CK-MB (CK-2) 5.0 H Albumin Diprq-8-Ljkfzlelx PEP Interpretation HDL Cholesterol Urine Creatinine Urine Total Protein 08/16/18 08/16/18 08/16/18 03:37 07:54 12:01 WBC RBC Hgb Hct MCV MCH RDW Plt Count [place] % (Auto) Eos % (Auto) Seg Neuts % (Manual) Lymphocytes % (Manual) Monocytes % (Manual) Eosinophils % (Manual) Basophils % (Manual) Seg Neutrophils # Man D-Dimer Sodium Chloride BUN Creatinine Glucose POC Glucose 113 H 179 H Hemoglobin A1c Calcium Phosphorus Iron Total Creatine Kinase CK-MB (CK-2) Albumin Slwwf-5-Ueoqenqmb PEP Interpretation HDL Cholesterol 37 L Urine Creatinine Urine Total Protein 08/16/18 08/16/18 08/16/18 13:52 17:44 21:21 WBC RBC Hgb Hct MCV MCH RDW Plt Count [place] % (Auto) Eos % (Auto) Seg Neuts % (Manual) Lymphocytes % (Manual) Monocytes % (Manual) Eosinophils % (Manual) Basophils % (Manual) Seg Neutrophils # Man D-Dimer Sodium Chloride BUN Creatinine Glucose POC Glucose 221 H 165 H Hemoglobin A1c Calcium Phosphorus Iron 30 L Total Creatine Kinase CK-MB (CK-2) Albumin Rmeoq-5-Sabyegftl PEP Interpretation HDL Cholesterol Urine Creatinine Urine Total Protein 08/17/18 08/17/18 08/17/18 04:00 07:30 07:30 WBC RBC Hgb 10.3 L Hct 31.5 L MCV 82 L MCH 27 L RDW 16.8 H Plt Count [place] % (Auto) 14.0 H Eos % (Auto) 6.6 H Seg Neuts % (Manual) Lymphocytes % (Manual) Monocytes % (Manual) Eosinophils % (Manual) Basophils % (Manual) Seg Neutrophils # Man D-Dimer Sodium Chloride BUN 32 H Creatinine 2.9 H Glucose 180 H POC Glucose Hemoglobin A1c Calcium Phosphorus Iron Total Creatine Kinase CK-MB (CK-2) Albumin Xysfd-4-Vuwnzxece PEP Interpretation HDL Cholesterol Urine Creatinine 22.4 H Urine Total Protein 79 H 08/17/18 08/17/18 08/17/18 07:34 11:13 12:17 WBC RBC Hgb Hct MCV MCH RDW Plt Count [place] % (Auto) Eos % (Auto) Seg Neuts % (Manual) Lymphocytes % (Manual) Monocytes % (Manual) Eosinophils % (Manual) Basophils % (Manual) Seg Neutrophils # Sadi D-Dimer Sodium Chloride BUN Creatinine Glucose POC Glucose 169 H 207 H Hemoglobin A1c Calcium Phosphorus Iron Total Creatine Kinase CK-MB (CK-2) Albumin 2.9 L Qqovx-0-Ppvgzizzq 0.4 H PEP Interpretation see below H HDL Cholesterol Urine Creatinine Urine Total Protein 08/17/18 08/17/18 08/18/18 16:36 21:17 07:05 WBC RBC Hgb Hct MCV MCH RDW Plt Count [place] % (Auto) Eos % (Auto) Seg Neuts % (Manual) Lymphocytes % (Manual) Monocytes % (Manual) Eosinophils % (Manual) Basophils % (Manual) Seg Neutrophils # Sadi D-Dimer Sodium 134 L Chloride 95.9 L BUN 43 H Creatinine 3.8 H Glucose 150 H POC Glucose 184 H 209 H Hemoglobin A1c Calcium Phosphorus Iron Total Creatine Kinase CK-MB (CK-2) Albumin Wrheb-9-Apafdggvo PEP Interpretation HDL Cholesterol Urine Creatinine Urine Total Protein 08/18/18 08/18/18 08/18/18 07:53 08:34 11:53 WBC RBC Hgb 10.8 L Hct 33.8 L MCV MCH 27 L RDW 16.3 H Plt Count [place] % (Auto) Eos % (Auto) Seg Neuts % (Manual) Lymphocytes % (Manual) Monocytes % (Manual) Eosinophils % (Manual) Basophils % (Manual) Seg Neutrophils # Sadi D-Dimer Sodium Chloride BUN Creatinine Glucose POC Glucose 139 H 191 H Hemoglobin A1c Calcium Phosphorus Iron Total Creatine Kinase CK-MB (CK-2) Albumin Gjqsa-4-Tvncwwukh PEP Interpretation HDL Cholesterol Urine Creatinine Urine Total Protein 08/18/18 08/18/18 08/19/18 15:54 20:49 05:28 WBC RBC Hgb 9.7 L Hct 30.1 L MCV 82 L MCH 26 L RDW 16.6 H Plt Count 136 L [place] % (Auto) Eos % (Auto) Seg Neuts % (Manual) Lymphocytes % (Manual) Monocytes % (Manual) Eosinophils % (Manual) Basophils % (Manual) Seg Neutrophils # Sadi D-Dimer Sodium Chloride BUN Creatinine Glucose POC Glucose 150 H 138 H Hemoglobin A1c Calcium Phosphorus Iron Total Creatine Kinase CK-MB (CK-2) Albumin Uynep-1-Gnwypesbe PEP Interpretation HDL Cholesterol Urine Creatinine Urine Total Protein 08/19/18 08/19/1819 05:28 07:43 11:57 WBC RBC Hgb Hct MCV MCH RDW Plt Count [place] % (Auto) Eos % (Auto) Seg Neuts % (Manual) Lymphocytes % (Manual) Monocytes % (Manual) Eosinophils % (Manual) Basophils % (Manual) Seg Neutrophils # Man D-Dimer Sodium 134 L Chloride 96.2 L BUN 55 H Creatinine 4.4 H Glucose 118 H POC Glucose 162 H 280 H Hemoglobin A1c Calcium Phosphorus Iron Total Creatine Kinase CK-MB (CK-2) Albumin Hjjci-0-Hnhgggefk PEP Interpretation HDL Cholesterol Urine Creatinine Urine Total Protein 08/19/18 08/19/18 08/20/18 15:41 21:44 04:53 WBC 3.5 L RBC 3.58 L Hgb 9.4 L Hct 29.5 L MCV 83 L MCH 26 L RDW 16.4 H Plt Count 121 L [place] % (Auto) Eos % (Auto) Seg Neuts % (Manual) Lymphocytes % (Manual) Monocytes % (Manual) 16.0 H Eosinophils % (Manual) Basophils % (Manual) 3.0 H Seg Neutrophils # Man 1.6 L D-Dimer Sodium Chloride BUN Creatinine Glucose POC Glucose 167 H 234 H Hemoglobin A1c Calcium Phosphorus Iron Total Creatine Kinase CK-MB (CK-2) Albumin Pgygj-4-Efomkoffi PEP Interpretation HDL Cholesterol Urine Creatinine Urine Total Protein 08/20/18 08/20/18 08/20/18 04:53 08:13 12:09 WBC RBC Hgb Hct MCV MCH RDW Plt Count [place] % (Auto) Eos % (Auto) Seg Neuts % (Manual) Lymphocytes % (Manual) Monocytes % (Manual) Eosinophils % (Manual) Basophils % (Manual) Seg Neutrophils # Man D-Dimer Sodium 136 L Chloride BUN 57 H Creatinine 3.3 H Glucose 136 H POC Glucose 124 H Hemoglobin A1c Calcium Phosphorus 5.50 H Iron Total Creatine Kinase CK-MB (CK-2) Albumin Ekqqt-4-Kqfijyxyd PEP Interpretation HDL Cholesterol Urine Creatinine 56.1 H Urine Total Protein 08/20/18 08/20/18 08/20/18 12:49 18:26 20:53 WBC RBC Hgb Hct MCV MCH RDW Plt Count [place] % (Auto) Eos % (Auto) Seg Neuts % (Manual) Lymphocytes % (Manual) Monocytes % (Manual) Eosinophils % (Manual) Basophils % (Manual) Seg Neutrophils # Man D-Dimer Sodium Chloride BUN Creatinine Glucose POC Glucose 145 H 175 H 184 H Hemoglobin A1c Calcium Phosphorus Iron Total Creatine Kinase CK-MB (CK-2) Albumin Hawde-5-Iursuyhqr PEP Interpretation HDL Cholesterol Urine Creatinine Urine Total Protein 08/21/18 08/21/18 08/21/18 04:28 04:28 08:58 WBC 3.8 L RBC 3.42 L Hgb 9.2 L Hct 28.4 L MCV 83 L MCH 27 L RDW 16.4 H Plt Count 126 L [place] % (Auto) Eos % (Auto) Seg Neuts % (Manual) Lymphocytes % (Manual) Monocytes % (Manual) 15.0 H Eosinophils % (Manual) Basophils % (Manual) Seg Neutrophils # Sadi D-Dimer Sodium 134 L Chloride 96.5 L BUN 59 H Creatinine 3.4 H Glucose 190 H POC Glucose 159 H Hemoglobin A1c Calcium Phosphorus 5.10 H Iron Total Creatine Kinase CK-MB (CK-2) Albumin Rijet-6-Acfbrodeo PEP Interpretation HDL Cholesterol Urine Creatinine Urine Total Protein 08/21/18 08/21/18 08/21/18 12:25 17:10 21:43 WBC RBC Hgb Hct MCV MCH RDW Plt Count [place] % (Auto) Eos % (Auto) Seg Neuts % (Manual) Lymphocytes % (Manual) Monocytes % (Manual) Eosinophils % (Manual) Basophils % (Manual) Seg Neutrophils # Sadi D-Dimer Sodium Chloride BUN Creatinine Glucose POC Glucose 222 H 152 H 150 H Hemoglobin A1c Calcium Phosphorus Iron Total Creatine Kinase CK-MB (CK-2) Albumin Lixsa-0-Kqsvittfq PEP Interpretation HDL Cholesterol Urine Creatinine Urine Total Protein 08/22/18 08/22/18 08/22/18 04:50 04:51 08:08 WBC 3.7 L RBC 3.37 L Hgb 9.0 L Hct 27.8 L MCV 83 L MCH 27 L RDW 16.9 H Plt Count 124 L [place] % (Auto) Eos % (Auto) Seg Neuts % (Manual) Lymphocytes % (Manual) Monocytes % (Manual) 13.0 H Eosinophils % (Manual) 11.0 H Basophils % (Manual) Seg Neutrophils # Sadi 1.6 L D-Dimer Sodium 135 L Chloride 97.4 L BUN 64 H Creatinine 3.5 H Glucose 114 H POC Glucose 117 H Hemoglobin A1c Calcium Phosphorus 4.90 H Iron Total Creatine Kinase CK-MB (CK-2) Albumin Wccxq-1-Lbzxgapcy PEP Interpretation HDL Cholesterol Urine Creatinine Urine Total Protein 08/22/18 08/22/18 08/23/18 14:48 21:36 05:09 WBC 4.3 L RBC 3.60 L Hgb 9.6 L Hct 29.6 L MCV 82 L MCH 27 L RDW 16.6 H Plt Count 134 L [place] % (Auto) Eos % (Auto) Seg Neuts % (Manual) 38.0 L Lymphocytes % (Manual) 51.0 H Monocytes % (Manual) 8.0 H Eosinophils % (Manual) Basophils % (Manual) Seg Neutrophils # Man 1.6 L D-Dimer Sodium Chloride BUN Creatinine Glucose POC Glucose 211 H 268 H Hemoglobin A1c Calcium Phosphorus Iron Total Creatine Kinase CK-MB (CK-2) Albumin Fqsjo-4-Oovlrwrid PEP Interpretation HDL Cholesterol Urine Creatinine Urine Total Protein 08/23/18 08/23/18 08/23/18 05:09 07:44 14:02 WBC RBC Hgb Hct MCV MCH RDW Plt Count [place] % (Auto) Eos % (Auto) Seg Neuts % (Manual) Lymphocytes % (Manual) Monocytes % (Manual) Eosinophils % (Manual) Basophils % (Manual) Seg Neutrophils # Man D-Dimer Sodium Chloride BUN 45 H Creatinine 2.6 H Glucose 174 H POC Glucose 240 H 161 H Hemoglobin A1c Calcium Phosphorus Iron Total Creatine Kinase CK-MB (CK-2) Albumin Khfdc-5-Vmcgjmnye PEP Interpretation HDL Cholesterol Urine Creatinine Urine Total Protein 08/23/18 08/23/18 08/24/18 17:33 20:32 05:09 WBC RBC Hgb Hct MCV MCH RDW Plt Count [place] % (Auto) Eos % (Auto) Seg Neuts % (Manual) Lymphocytes % (Manual) Monocytes % (Manual) Eosinophils % (Manual) Basophils % (Manual) Seg Neutrophils # Man D-Dimer Sodium 135 L Chloride 97.4 L BUN 38 H Creatinine 2.3 H Glucose 183 H POC Glucose 217 H 208 H Hemoglobin A1c Calcium Phosphorus Iron Total Creatine Kinase CK-MB (CK-2) Albumin Xozqw-7-Kijnfzspx PEP Interpretation HDL Cholesterol Urine Creatinine Urine Total Protein 08/24/18 08/24/18 08/24/18 07:49 11:32 16:44 WBC RBC Hgb Hct MCV MCH RDW Plt Count [place] % (Auto) Eos % (Auto) Seg Neuts % (Manual) Lymphocytes % (Manual) Monocytes % (Manual) Eosinophils % (Manual) Basophils % (Manual) Seg Neutrophils # Sadi D-Dimer Sodium Chloride BUN Creatinine Glucose POC Glucose 171 H 271 H 168 H Hemoglobin A1c Calcium Phosphorus Iron Total Creatine Kinase CK-MB (CK-2) Albumin Vwlyd-0-Eqyqrxxcm PEP Interpretation HDL Cholesterol Urine Creatinine Urine Total Protein 08/24/18 08/25/18 08/25/18 20:54 04:43 04:43 WBC RBC 3.41 L Hgb 9.1 L Hct 28.0 L MCV 82 L MCH 27 L RDW 17.0 H Plt Count 133 L [place] % (Auto) Eos % (Auto) Seg Neuts % (Manual) Lymphocytes % (Manual) Monocytes % (Manual) 10.0 H Eosinophils % (Manual) Basophils % (Manual) Seg Neutrophils # Sadi D-Dimer Sodium 136 L Chloride BUN 44 H Creatinine 2.6 H Glucose 193 H POC Glucose 214 H Hemoglobin A1c Calcium Phosphorus Iron Total Creatine Kinase CK-MB (CK-2) Albumin Obiej-8-Qiuggotxg PEP Interpretation HDL Cholesterol Urine Creatinine Urine Total Protein 08/25/18 08/25/18 08/25/18 08:04 13:43 16:39 WBC RBC Hgb Hct MCV MCH RDW Plt Count [place] % (Auto) Eos % (Auto) Seg Neuts % (Manual) Lymphocytes % (Manual) Monocytes % (Manual) Eosinophils % (Manual) Basophils % (Manual) Seg Neutrophils # Sadi D-Dimer Sodium Chloride BUN Creatinine Glucose POC Glucose 167 H 193 H 249 H Hemoglobin A1c Calcium Phosphorus Iron Total Creatine Kinase CK-MB (CK-2) Albumin Aahcu-1-Dvvqfvlis PEP Interpretation HDL Cholesterol Urine Creatinine Urine Total Protein 08/25/18 08/26/18 08/26/18 21:15 04:56 07:21 WBC RBC Hgb Hct MCV MCH RDW Plt Count [place] % (Auto) Eos % (Auto) Seg Neuts % (Manual) Lymphocytes % (Manual) Monocytes % (Manual) Eosinophils % (Manual) Basophils % (Manual) Seg Neutrophils # Man D-Dimer Sodium 133 L Chloride 96.3 L BUN 32 H Creatinine 2.1 H Glucose 186 H POC Glucose 176 H 183 H Hemoglobin A1c Calcium 8.3 L Phosphorus Iron Total Creatine Kinase CK-MB (CK-2) Albumin Deklr-8-Xuqbrsyfw PEP Interpretation HDL Cholesterol Urine Creatinine Urine Total Protein 08/26/18 08/26/1819 14:34 16:34 21:07 WBC RBC Hgb Hct MCV MCH RDW Plt Count [place] % (Auto) Eos % (Auto) Seg Neuts % (Manual) Lymphocytes % (Manual) Monocytes % (Manual) Eosinophils % (Manual) Basophils % (Manual) Seg Neutrophils # Man D-Dimer Sodium Chloride BUN Creatinine Glucose POC Glucose 165 H 206 H 185 H Hemoglobin A1c Calcium Phosphorus Iron Total Creatine Kinase CK-MB (CK-2) Albumin Bmdhc-5-Ozqubqqbj PEP Interpretation HDL Cholesterol Urine Creatinine Urine Total Protein 08/27/18 08/27/18 08/27/18 07:34 08:23 16:31 WBC RBC Hgb Hct MCV MCH RDW Plt Count [place] % (Auto) Eos % (Auto) Seg Neuts % (Manual) Lymphocytes % (Manual) Monocytes % (Manual) Eosinophils % (Manual) Basophils % (Manual) Seg Neutrophils # Man D-Dimer Sodium 135 L Chloride 97.3 L BUN 28 H Creatinine 2.4 H Glucose 130 H POC Glucose 136 H 229 H Hemoglobin A1c Calcium 8.0 L Phosphorus Iron Total Creatine Kinase CK-MB (CK-2) Albumin Fdcgu-2-Kiiyteymo PEP Interpretation HDL Cholesterol Urine Creatinine Urine Total Protein 08/27/18 08/28/18 08/28/18 21:32 04:40 07:48 WBC RBC Hgb Hct MCV MCH RDW Plt Count [place] % (Auto) Eos % (Auto) Seg Neuts % (Manual) Lymphocytes % (Manual) Monocytes % (Manual) Eosinophils % (Manual) Basophils % (Manual) Seg Neutrophils # Man D-Dimer Sodium 135 L Chloride 97.9 L BUN 25 H Creatinine 2.2 H Glucose 118 H POC Glucose 142 H 120 H Hemoglobin A1c Calcium Phosphorus Iron Total Creatine Kinase CK-MB (CK-2) Albumin Mnykt-3-Ljdzeqcpy PEP Interpretation HDL Cholesterol Urine Creatinine Urine Total Protein 08/28/18 08/28/18 08/29/18 17:11 20:52 04:29 WBC RBC Hgb Hct MCV MCH RDW Plt Count [place] % (Auto) Eos % (Auto) Seg Neuts % (Manual) Lymphocytes % (Manual) Monocytes % (Manual) Eosinophils % (Manual) Basophils % (Manual) Seg Neutrophils # Man D-Dimer Sodium 134 L Chloride 93.3 L BUN 36 H Creatinine 2.9 H Glucose 187 H POC Glucose 209 H 188 H Hemoglobin A1c Calcium Phosphorus Iron Total Creatine Kinase CK-MB (CK-2) Albumin Rowfu-6-Xogdtvioo PEP Interpretation HDL Cholesterol Urine Creatinine Urine Total Protein Allied health notes reviewed: nursing
--- NOTE | 2018-08-29 08:54 | Progress Note ---
Assessment and Plan Severe renal failure, likely ESRD, dialysis dependent: - cont daily UF, again today and likely tomorrow - pt will need to continue dialysis upon discharge, can be discharged from renal standpoint when cleared by other services. -First hemodialysis treatment was on 08/22/18. -Secondary GN workup was negative -Renal ultrasound on 08/16/18- Chronic medical renal disease. No Hydronephrosis. -No ACEI or ARB due to advanced renal failure -Renally dose all medications -Avoid Nephrotoxic agents -Strict I/O's monitoring -Will monitor for renal recovery Congestive Diastolic heart failure -Echo- LVEF is 55-60% -S/P IV Lasix -UF with HD -Cardiology onboard Anemia of chronic disease due to CKD: -On Epogen 10,000 units SQ every M,W,F -Monitor H/H Essential Hypertension: - Continue on current regimen - Adjust medications as needed Diabetes Mellitus type 2 on insulin: -On insulin as per primary team Martell Perdue MD [phone] Subjective Date of service: 08/29/18 Principal diagnosis: CHF; CKD;; HANSEN; Elevated d-dimer; Essential HTN; Morbid obesity; MARBELLA Interval history: seen during HD, tolerating Objective - Vital Signs Vital signs: Vital Signs - 12hr 08/28/18 08/28/18 08/28/18 21:31 21:32 22:30 Temperature Pulse Rate 73 73 75 Respiratory 18 Rate Blood Pressure 138/70 138/70 O2 Sat by Pulse 96 Oximetry 08/28/18 08/29/18 08/29/18 23:41 00:35 01:49 Temperature 98.5 F Pulse Rate 65 75 71 Respiratory 18 18 Rate Blood Pressure 138/74 O2 Sat by Pulse 95 96 Oximetry 08/29/18 08/29/18 08/29/18 04:16 04:21 05:36 Temperature 98.2 F Pulse Rate 80 76 74 Respiratory 18 Rate Blood Pressure 119/60 119/60 O2 Sat by Pulse 94 Oximetry - General Appearance General appearance: well-developed, well-nourished, obese EENT: ATNC, PERRL, mucous membranes moist Neck: no JVD, no carotid bruit Respiratory: Present: Clear to Ascultation. Absent: Rales, Ronchi Cardiology: regular, S1S2 Gastrointestinal: normoactive bowel sounds, no tenderness, no distended Integumentary: no rash, warm and dry Neurologic: no focal deficit, no asterixis, alert and oriented x3 Musculoskeletal: other (anasarca) Psychiatric: mood/affect appropriate, cooperative - Lab 08/25/18 04:43 08/29/18 04:29 Most recent lab results Calcium 8.7 mg/dL (8.4-10.2) 08/29/18 04:29 Phosphorus 3.90 mg/dL (2.5-4.5) 08/25/18 04:43 56.1 mg/dL (0.1-20.0) H 08/20/18 12:09 132 mmol/L 08/17/18 04:00 79 mg/dL (5-11.8) H 08/17/18 04:00 Medications & Allergies - Medications Allergies/Adverse Reactions: Allergies canagliflozin [From Invokana] Allergy (Verified 08/15/18 17:49) Unknown IV CONTRAST DYE Allergy (Uncoded 08/15/18 17:49) Unknown Home Medications: Home Medications Medication Instructions Recorded Confirmed Last Taken Type Acetaminophen [Acetaminophen ER] 650 mg PO Q8HR PRN 08/16/18 08/16/18 Unknown History Amlodipine Besylate/Benazepril 1 each PO QDAY 08/16/18 08/16/18 Unknown History [Lotrel 10-40 mg] AtorvaSTATin [Lipitor] 40 mg PO QHS 08/16/18 08/16/18 Unknown History Cholecalciferol (Vitamin D3) 5,000 unit PO DAILY 08/16/18 08/16/18 Unknown History [Vitamin D3 5,000 UNIT] Doxylamine Succinate [Unisom] 25 mg PO QHS 08/16/18 08/16/18 Unknown History Gabapentin [Neurontin] 300 mg PO QHS 08/16/18 08/16/18 Unknown History Insulin Regular, Human [Humulin R 90 unit SQ BID 08/16/18 08/16/18 Unknown History U-500 Kwikpen] Loratadine [Claritin] 10 mg PO DAILY PRN 08/16/18 08/16/18 Unknown History Melatonin [Melatonin 3MG TAB] 3 mg PO QHS 08/16/18 08/16/18 Unknown History Niacin [Niacor] 500 mg PO DAILY 08/16/18 08/16/18 Unknown History Omeprazole 20 mg PO DAILY PRN 08/16/18 08/16/18 Unknown History Triamcinolone Acetonide [Nasacort 10.8 ml NS DAILY 08/16/18 08/16/18 Unknown History SPRAY] Active Medications: Generic Name Dose Route Start Last Admin Trade Name Freq PRN Reason Stop Dose Admin Acetaminophen 650 mg 08/16/18 03:07 08/21/18 21:55 Tylenol PO 650 mg Q4H PRN Administration Pain MILD(1-3)/Fever >100.5/FRAIRE Albuterol 2.5 mg 08/16/18 03:07 Proventil IH Q4HRT PRN Shortness Of Breath Aspirin 81 mg 08/16/18 10:00 08/28/18 10:19 Baby Aspirin PO 81 mg QDAY ARLENE Administration Atorvastatin Calcium 40 mg 08/16/18 22:00 08/28/18 21:32 Lipitor PO 40 mg QHS ARLENE Administration Carvedilol 6.25 mg 08/17/18 12:00 08/28/18 21:32 Coreg PO 6.25 mg BID ARLENE Administration Cholecalciferol 5,000 unit 08/16/18 10:00 08/28/18 10:18 Vitamin D3 PO 5,000 unit DAILY ARLENE Administration Dextrose 50 ml 08/16/18 03:13 D50w (25gm) Syringe IV PRN PRN Hypoglycemia Docusate Sodium 100 mg 08/16/18 10:00 08/28/18 21:32 Colace PO 100 mg BID ARLENE Administration Epoetin [place] 10,000 unit 08/18/18 13:00 08/27/18 14:26 Procrit SUB-Q 10,000 unit MOWEFR ARLENE Administration Gabapentin 300 mg 08/16/18 22:00 08/28/18 21:32 Neurontin PO 300 mg QHS ARLENE Administration Heparin Sodium (Porcine) 5,000 unit 08/16/18 10:00 08/28/18 21:33 Heparin SUB-Q 5,000 unit Q12HR ARLENE Administration Hydralazine HCl 50 mg 08/16/18 14:00 08/29/18 05:36 Apresoline PO 50 mg Q8HR ARLENE Administration Sodium Chloride 100 mls @ 999 mls/hr 08/28/18 09:53 Nacl 0.9% IV JANE PRN Hypotension Ceftriaxone Sodium 1 gm in 50 mls @ 100 mls/hr 08/28/18 20:00 08/28/18 21:35 Rocephin/Ns 1 Gm/50 Ml IV 100 mls/hr Q24HR ARLENE Administration Protocol Insulin Human Lispro 0 unit 08/16/18 07:30 08/28/18 21:34 Humalog SUB-Q 2 unit ACHS ARLENE Administration Protocol Insulin Human Regular 5 units 08/16/18 07:30 08/28/18 18:45 Humulin R SUB-Q 5 units AC ARLENE Administration Nitroglycerin 0.4 mg 08/16/18 03:07 Nitrostat SL .Q5MIN PRN Chest Pain Ondansetron HCl 4 mg 08/16/18 03:07 08/16/18 16:39 Zofran IV 4 mg Q8H PRN Administration Nausea And Vomiting Oxycodone/Acetaminophen 1 tab 08/16/18 03:07 08/23/18 22:06 Percocet 5/325 PO 1 tab Q6H PRN Administration Pain, Moderate (4-6) Sodium Chloride 10 ml 08/16/18 10:00 08/28/18 21:34 Sodium Chloride Flush Syringe 10 Ml IV 10 ml BID ARLENE Administration Sodium Chloride 10 ml 08/16/18 03:07 08/16/18 06:17 Sodium Chloride Flush Syringe 10 Ml IV 10 ml PRN PRN Administration LINE FLUSH
[2018-08-29] MEDS: HumaLOG SUB-Q SCH ×4 (09:05→22:27)
[2018-08-29] MEDS: HumuLIN R SUB-Q SCH ×3 (09:05→18:40)
--- NOTE | 2018-08-29 10:11 | Progress Note ---
Assessment and Plan Currently stable cardiac status. Cont present cardiac management. Volume optimization per nephrology. Pt may discharge home from cardiology standpoint. At discharge, pt plans to move to [place] to live with his Aunt. Recommend follow up with a drop worker in [place] or follow up in our office with Dr. Murrieta within 3-5 days of hospital discharge ([phone]). The patient has been seen in conjunction with Dr. Fairbanks who agrees with the assessment and plan of care. - Patient Problems (1) Acute heart failure with preserved ejection fraction Current Visit: Yes Status: Acute (2) Acute on chronic renal failure Current Visit: Yes Status: Acute (3) Anasarca Current Visit: Yes Status: Acute (4) Essential hypertension Current Visit: Yes Status: Chronic (5) Hyperlipemia, mixed Current Visit: Yes Status: Chronic (6) Morbid obesity Current Visit: Yes Status: Chronic (7) MARBELLA (obstructive sleep apnea) Current Visit: Yes Status: Chronic (8) Anemia Current Visit: Yes Status: Acute Qualifiers: Qualified Code(s): D64.9 - Anemia, unspecified (9) Thrombocytopenia Current Visit: Yes Status: Acute (10) Chronic venous insufficiency Current Visit: Yes Status: Chronic Subjective Date of service: 08/29/18 Principal diagnosis: CHF; CKD;; HANSEN; Elevated d-dimer; Essential HTN; Morbid obesity; MARBELLA Interval history: pt resting comfortably, BLE edema and scrotal edema gradually improving. Objective Last Vital Signs Temp 98.2 F 08/29/18 04:21 Pulse 74 08/29/18 05:36 Resp 18 08/29/18 04:21 BP 119/60 08/29/18 05:36 Pulse Ox 94 08/29/18 04:21 - Physical Examination General: Appears Well HEENT: Positive: PERRL, Mucus Membranes Moist Neck: Positive: neck supple, trachea midline Cardiac: Positive: Reg Rate and Rhythm, S1/S2 Lungs: Positive: Decreased Breath Sounds Neuro: Positive: Grossly Intact Abdomen: Positive: Soft, Active Bowel Sounds. Negative: Tender, Distended Skin: Positive: Clear Incision: Cardiac Cath Site Musculoskeletal: No Pain, Normal Range of Motion Extremities: Present: normal, edema, +1 Edema, Other (scrotal edema) - Labs and Meds Comprehensive Metabolic Panel 08/29/18 Range/Units 04:29 Sodium 134 L (137-145) mmol/L Potassium 4.3 (3.6-5.0) mmol/L Chloride 93.3 L (98-107) mmol/L Carbon Dioxide 23 (22-30) mmol/L BUN 36 H (9-20) mg/dL Creatinine 2.9 H (0.8-1.5) mg/dL Glucose 187 H (75-100) mg/dL Calcium 8.7 (8.4-10.2) mg/dL - Imaging and Cardiology EKG: image reviewed (sinus rhythm at 76 bpm) Echo: report reviewed (2015 normal LV function.Positive bubble study PFO), other (08/17/2018 normal LV function and diastolic dysfunction mild to moderate LVH no significant regurgitations) - Allied health notes Allied health notes reviewed: nursing
--- NOTE | 2018-08-29 10:58 | Progress Note ---
Assessment and Plan Assessment and plan: Patient is a 58-year-old male with history of hypertension, diabetes, HLD, CKD stage III who presents to [facility] ED with c/o bilateral lower extremity swelling and shortness of breath. Pt scrotum is swollen obstructing view of his penis. Currently patient is on 2L supplemental O2 with saturation of 94%. D-dimer slightly elevated at 463.24. CK-MB elevated at 5.0; troponin negative. 2D ECHO conclusions Global LV systolic function is normal, estimated estimated EF is 55- 60%; abnormal LV diastolic dysfunction, mild to moderate concentric LV hypertrophy, trace mr, tr, RVSP calculated at 57 mmHg, Acute heart failure with preserved EF. Continue present management. No ACEI or ARB due to advanced renal failure. CXR on 08/19/18 showed no pulmonary edema or pneumonia. Continue hemodialysis per nephrology. Acute on Chronic kidney disease, stage 3: Patient had Perm-catheter placed 08/22 and hemodialysis was initiated. Secondary GN workup was negative. Renal ultrasound on 08/16/18- Chronic medical renal disease. No Hydronephrosis. No ACEI or ARB due to advanced renal failure. Renally dose all medications. Avoid Nephrotoxic agents. Strict I/O's monitoring. Nephrology to determine long-term needs for hemodialysis. Cr 2.9 today. Still monitoring for Renal Recovery Anasarca and scrotal edema. Elevated D-Dimer. V/Q scan negative Hypertensive urgency: iv antihypertensives as needed, low salt diet DM type 2; ada and ssi HLD: treat with statins Malnutrition mild to moderate: counseling done, consulted [employer] Right toe pressure ulcer, poa, at least stage 3, heel ulcers bilateral also: see admission photos, local wound care done, continue Wound care Morbid obese, BMI 49: counseled on lifestyle modification and weight reduction Full code status History Interval history: Feels better Less swelling Less shortness of breath Hospitalist Physical - Physical exam Narrative exam: Gen: Not in acute distress,Sitting up. Morbidly obese HEENT: Normocephalic, atraumatic Neck: supple, no JVD Heart: S1 and S2 reg, no murmurs, rubs or gallop Lungs: Clear, no crackles, no wheeze Abd: soft, non tender, non distended, normal BS Ext: Bilateral leg edema, no clubbing, no cyanosis, Skin:anasarca Neuro: Awake,alert, oriented x 3, moves all ext, non focal Psych:Normal mood - Constitutional Vitals: Temp Pulse Resp BP Pulse Ox 98.2 F 74 18 119/60 94 08/29/18 04:21 08/29/18 05:36 08/29/18 04:21 08/29/18 05:36 08/29/18 04:21 General appearance: Present: no acute distress, obese Results - Labs CBC & Chem 7: 08/25/18 04:43 08/29/18 04:29 Labs: Laboratory Last Values WBC 5.3 K/mm3 (4.5-11.0) 08/25/18 04:43 RBC 3.41 M/mm3 (3.65-5.03) L 08/25/18 04:43 Hgb 9.1 gm/dl (11.8-15.2) L 08/25/18 04:43 Hct 28.0 % (35.5-45.6) L 08/25/18 04:43 MCV 82 fl (84-94) L 08/25/18 04:43 MCH 27 pg (28-32) L 08/25/18 04:43 MCHC 33 % (32-34) 08/25/18 04:43 RDW 17.0 % (13.2-15.2) H 08/25/18 04:43 Plt Count 133 K/mm3 (140-440) L 08/25/18 04:43 Lymph % (Auto) 26.6 % (13.4-35.0) 08/17/18 07:30 [place] % (Auto) Professor Of Physical Education 08/25/18 04:43 Eos % (Auto) 6.6 % (0.0-4.3) H 08/17/18 07:30 Baso % (Auto) 1.1 % (0.0-1.8) 08/17/18 07:30 Lymph # 1.3 K/mm3 (1.2-5.4) 08/17/18 07:30 [place] # 0.7 K/mm3 (0.0-0.8) 08/17/18 07:30 Eos # 0.3 K/mm3 (0.0-0.4) 08/17/18 07:30 Baso # 0.1 K/mm3 (0.0-0.1) 08/17/18 07:30 Add Manual Diff Complete 08/25/18 04:43 Total Counted 100 08/25/18 04:43 Seg Neutrophils % 51.7 % (40.0-70.0) 08/17/18 07:30 Seg Neuts % (Manual) 62.0 % (40.0-70.0) 08/25/18 04:43 0 % 08/25/18 04:43 23.0 % (13.4-35.0) 08/25/18 04:43 Reactive Lymphs % (Man) 0 % 08/25/18 04:43 10.0 % (0.0-7.3) H 08/25/18 04:43 4.0 % (0.0-4.3) 08/25/18 04:43 1.0 % (0.0-1.8) 08/25/18 04:43 0 % 08/25/18 04:43 0 % 08/25/18 04:43 0 % 08/25/18 04:43 0 % 08/25/18 04:43 Nucleated RBC % Not Reportable 08/25/18 04:43 Seg Neutrophils # 2.6 K/mm3 (1.8-7.7) 08/17/18 07:30 Seg Neutrophils # Man 3.3 K/mm3 (1.8-7.7) 08/25/18 04:43 Band Neutrophils # 0.0 K/mm3 08/25/18 04:43 1.2 K/mm3 (1.2-5.4) 08/25/18 04:43 Abs React Lymphs (Man) 0.0 K/mm3 08/25/18 04:43 0.5 K/mm3 (0.0-0.8) 08/25/18 04:43 0.2 K/mm3 (0.0-0.4) 08/25/18 04:43 0.1 K/mm3 (0.0-0.1) 08/25/18 04:43 0.0 K/mm3 08/25/18 04:43 0.0 K/mm3 08/25/18 04:43 0.0 K/mm3 08/25/18 04:43 Blast Cells # 0.0 K/mm3 08/25/18 04:43 WBC Morphology Not Reportable 08/25/18 04:43 Hypersegmented Neuts Not Reportable 08/25/18 04:43 Hyposegmented Neuts Not Reportable 08/25/18 04:43 Hypogranular Neuts Not Reportable 08/25/18 04:43 Not Reportable 08/25/18 04:43 Not Reportable 08/25/18 04:43 Not Reportable 08/25/18 04:43 Not Reportable 08/25/18 04:43 Not Reportable 08/25/18 04:43 Not Reportable 08/25/18 04:43 Consistent w auto 08/25/18 04:43 Not Reportable 08/25/18 04:43 Plt Clumps, EDTA Not Reportable 08/25/18 04:43 Rare 08/25/18 04:43 Not Reportable 08/25/18 04:43 Not Reportable 08/25/18 04:43 Plt Morphology Comment Not Reportable 08/25/18 04:43 RBC Morphology Not Reportable 08/25/18 04:43 Dimorphic RBCs Not Reportable 08/25/18 04:43 Not Reportable 08/25/18 04:43 Not Reportable 08/25/18 04:43 1+ 08/25/18 04:43 1+ 08/25/18 04:43 Not Reportable 08/25/18 04:43 Not Reportable 08/25/18 04:43 Not Reportable 08/25/18 04:43 Not Reportable 08/25/18 04:43 Not Reportable 08/25/18 04:43 Not Reportable 08/25/18 04:43 Not Reportable 08/25/18 04:43 Not Reportable 08/25/18 04:43 Not Reportable 08/25/18 04:43 Not Reportable 08/25/18 04:43 Not Reportable 08/25/18 04:43 Not Reportable 08/25/18 04:43 Not Reportable 08/25/18 04:43 Not Reportable 08/25/18 04:43 1+ 08/25/18 04:43 Acanthocytes (Spur) Not Reportable 08/25/18 04:43 Rouleaux Not Reportable 08/25/18 04:43 Not Reportable 08/25/18 04:43 Not Reportable 08/25/18 04:43 Not Reportable 08/25/18 04:43 Not Reportable 08/25/18 04:43 Hem Pathologist Commnt No 08/25/18 04:43 463.24 ng/mlDDU (0-234) H 08/15/18 21:24 Sodium 134 mmol/L (137-145) L 08/29/18 04:29 Potassium 4.3 mmol/L (3.6-5.0) 08/29/18 04:29 Chloride 93.3 mmol/L (98-107) L 08/29/18 04:29 Carbon Dioxide 23 mmol/L (22-30) 08/29/18 04:29 22 mmol/L 08/29/18 04:29 BUN 36 mg/dL (9-20) H 08/29/18 04:29 2.9 mg/dL (0.8-1.5) H 08/29/18 04:29 Estimated GFR 23 ml/min 08/29/18 04:29 12 % 08/29/18 04:29 Glucose 187 mg/dL (75-100) H 08/29/18 04:29 POC Glucose 144 (70-105) H 08/29/18 08:21 7.4 % (4-6) H 08/16/18 03:37 Lactic Acid 0.70 mmol/L (0.7-2.0) 08/20/18 04:53 Calcium 8.7 mg/dL (8.4-10.2) 08/29/18 04:29 Phosphorus 3.90 mg/dL (2.5-4.5) 08/25/18 04:43 Iron 30 ug/dL (49-181) L 08/16/18 13:52 TIBC 352 mcg/dL (250-450) 08/16/18 13:52 78.2 ng/mL (13.0-400.0) 08/18/18 08:34 0.40 mg/dL (0.1-1.2) 08/15/18 18:54 AST 25 units/L (5-40) 08/15/18 18:54 ALT 15 units/L (7-56) 08/15/18 18:54 74 units/L (35-129) 08/15/18 18:54 340 units/L (55-170) H 08/15/18 21:24 CK-MB (CK-2) 5.0 ng/mL (0.0-4.0) H 08/15/18 21:24 CK-MB (CK-2) Rel Index 1.4 (0-4) 08/15/18 21:24 0.026 ng/mL (0.00-0.029) 08/15/18 21:24 NT-Pro-B Natriuret Pep 877.6 pg/mL (0-900) 08/17/18 11:13 6.1 g/dL (6.1-8.1) 08/17/18 11:13 6.7 g/dL (6.3-8.2) 08/15/18 18:54 2.9 g/dL (3.8-4.8) L 08/17/18 11:13 0.9 % 08/15/18 18:54 0.4 g/dL (0.2-0.3) H 08/17/18 11:13 0.7 g/dL (0.5-0.9) 08/17/18 11:13 0.5 g/dL (0.2-0.5) 08/17/18 11:13 1.1 g/dL (0.8-1.7) 08/17/18 11:13 Abnorm Protein Band 1 see below 08/17/18 11:13 PEP Interpretation see below H 08/17/18 11:13 Triglycerides 140 mg/dL (2-149) 08/16/18 03:37 Cholesterol 147 mg/dL (50-199) 08/16/18 03:37 88 mg/dL (50-130) 08/16/18 03:37 37 mg/dL (40-59) L 08/16/18 03:37 3.97 % 08/16/18 03:37 Straw (Yellow) 08/17/18 04:00 Clear (Clear) 08/17/18 04:00 7.0 (5.0-7.0) 08/17/18 04:00 Ur Specific [place] 1.006 (1.003-1.030) 08/17/18 04:00 100 mg/dl mg/dL (Negative) 08/17/18 04:00 Neg mg/dL (Negative) 08/17/18 04:00 Neg mg/dL (Negative) 08/17/18 04:00 Neg (Negative) 08/17/18 04:00 Neg (Negative) 08/17/18 04:00 Neg (Negative) 08/17/18 04:00 < 2.0 mg/dL (<2.0) 08/17/18 04:00 Ur Leukocyte Esterase Neg (Negative) 08/17/18 04:00 < 1.0 /HPF (0.0-6.0) 08/17/18 04:00 2.0 /HPF (0.0-6.0) 08/17/18 04:00 U Epithel Cells (Auto) 1.0 /HPF (0-13.0) 08/15/18 18:47 1+ /HPF (Negative) 08/17/18 04:00 Few /HPF 08/15/18 18:47 None seen (None Seen) 08/17/18 04:00 Ur Random Creatinine See scanned report 08/17/18 10:40 U Random Total Protein See scanned report 08/17/18 10:40 800 ml 08/20/18 12:09 56.1 mg/dL (0.1-20.0) H 08/20/18 12:09 Height (in) 68.0 inches 08/20/18 12:09 Weight (lb) 348.8 lbs 08/20/18 12:09 6 08/20/18 12:09 Protein/Creatinin Ratio See scanned report 08/17/18 10:40 132 mmol/L 08/17/18 04:00 106 08/17/18 04:00 79 mg/dL (5-11.8) H 08/17/18 04:00 U Abnormal Prot Band 1 See scanned report 08/17/18 10:40 U Abnormal Prot Band 2 See scanned report 08/17/18 10:40 U Abnormal Prot Band 3 See scanned report 08/17/18 10:40 Immunofix Electrophor see below 08/17/18 11:13 JELANI Screen Negative (Negative) 08/17/18 11:13 Double Strand DNA Ab <1 IU/mL (<=4) 08/17/18 11:13 144 mg/dL (82-185) 08/17/18 11:13 23 mg/dL (15-53) 08/17/18 11:13 RPR Nonreactive (Nonreactive) 08/17/18 11:13 Hepatitis A IgM Ab Non-reactive (NonReactive) 08/17/18 11:13 Hep Bs Antigen Non-reactive (Negative) 08/17/18 11:13 Hep B Core IgM Ab Non-reactive (NonReactive) 08/17/18 11:13 Non-reactive (NonReactive) 08/17/18 11:13 HIV 1&2 Antibody Rapid Non react (Non React) 08/17/18 11:13 Non react (Non React) 08/17/18 11:13 Active Medications - Current Medications Current Medications: Generic Name Dose Route Start Last Admin Trade Name Freq PRN Reason Stop Dose Admin Acetaminophen 650 mg 08/16/18 03:07 08/21/18 21:55 Tylenol PO 650 mg Q4H PRN Administration Pain MILD(1-3)/Fever >100.5/FRAIRE Albuterol 2.5 mg 08/16/18 03:07 Proventil IH Q4HRT PRN Shortness Of Breath Aspirin 81 mg 08/16/18 10:00 08/28/18 10:19 Baby Aspirin PO 81 mg QDAY ARLENE Administration Atorvastatin Calcium 40 mg 08/16/18 22:00 08/28/18 21:32 Lipitor PO 40 mg QHS ARLENE Administration Carvedilol 6.25 mg 08/17/18 12:00 08/28/18 21:32 Coreg PO 6.25 mg BID ARLENE Administration Cholecalciferol 5,000 unit 08/16/18 10:00 08/28/18 10:18 Vitamin D3 PO 5,000 unit DAILY ARLENE Administration Dextrose 50 ml 08/16/18 03:13 D50w (25gm) Syringe IV PRN PRN Hypoglycemia Docusate Sodium 100 mg 08/16/18 10:00 08/28/18 21:32 Colace PO 100 mg BID ARLENE Administration Epoetin Keon 10,000 unit 08/18/18 13:00 08/27/18 14:26 Procrit SUB-Q 10,000 unit MOWEFR ARLENE Administration Gabapentin 300 mg 08/16/18 22:00 08/28/18 21:32 Neurontin PO 300 mg QHS ARLENE Administration Heparin Sodium (Porcine) 5,000 unit 08/16/18 10:00 08/28/18 21:33 Heparin SUB-Q 5,000 unit Q12HR ARLENE Administration Hydralazine HCl 50 mg 08/16/18 14:00 08/29/18 05:36 Apresoline PO 50 mg Q8HR ARLENE Administration Sodium Chloride 100 mls @ 999 mls/hr 08/28/18 09:53 Nacl 0.9% IV JANE PRN Hypotension Ceftriaxone Sodium 1 gm in 50 mls @ 100 mls/hr 08/28/18 20:00 08/28/18 21:35 Rocephin/Ns 1 Gm/50 Ml IV 100 mls/hr Q24HR ARLENE Administration Protocol Insulin Human Lispro 0 unit 08/16/18 07:30 08/29/18 09:05 Humalog SUB-Q Not Given [facility] Protocol Insulin Human Regular 5 units 08/16/18 07:30 08/29/18 09:05 Humulin R SUB-Q Not Given AC [facility] Nitroglycerin 0.4 mg 08/16/18 03:07 Nitrostat SL .Q5MIN PRN Chest Pain Ondansetron HCl 4 mg 08/16/18 03:07 08/16/18 16:39 Zofran IV 4 mg Q8H PRN Administration Nausea And Vomiting Oxycodone/Acetaminophen 1 tab 08/16/18 03:07 08/23/18 22:06 Percocet 5/325 PO 1 tab Q6H PRN Administration Pain, Moderate (4-6) Sodium Chloride 10 ml 08/16/18 10:00 08/28/18 21:34 Sodium Chloride Flush Syringe 10 Ml IV 10 ml BID ARLENE Administration Sodium Chloride 10 ml 08/16/18 03:07 08/16/18 06:17 Sodium Chloride Flush Syringe 10 Ml IV 10 ml PRN PRN Administration LINE FLUSH Nutrition/Malnutrition Assess - Dietary Evaluation Nutrition/Malnutrition Findings: Nutrition Notes Start: 08/16/18 09:25 Freq: Status: Active Protocol: Document 08/19/18 14:48 GHASSAN (Rec: 08/19/18 14:54 [facility] SRW- [id number]) Nutrition Notes Initial or Follow up Brief Note Current Diagnosis CKD(stage I-IV),Diabetes Other Pertinent Diagnosis Fluid retention in scrotum and BLE edema, wounds on toe, heel and leg Current Diet Cardiac/consistent CHO Labs/Tests Na 134 BUN 55 Cr 4.4 Pertinent Medications Reviewed [place] Body Weight (kg) 0 Subjective/Other Information Pt reports good appetite; has been consuming 75-100% of meals. Nutrition Intervention Revisit per MD consult or patient Sign Off request:
[2018-08-29] MEDS ORDERED: NACL 0.9 (PRIMING MACHINE ONLY DIALYSIS) MC ONE (12:31)
[2018-08-29] MEDS: PROCRIT SUB-Q SCH ×2 (13:00→14:45)
[2018-08-29] MEDS: VITAMIN D3 PO SCH (15:54)
[2018-08-29] MEDS: COLACE PO SCH ×2 (15:54→21:53)
[2018-08-29] MEDS: COREG PO SCH ×2 (15:55→21:54)
[2018-08-29] MEDS: BABY ASPIRIN PO SCH (15:55)
[2018-08-29] MEDS: ROCEPHIN/NS 1 GM/50 ML 1 GM/50 ML BAG IV SCH (15:55)
[2018-08-29] MEDS: HEPARIN SUB-Q SCH ×2 (15:55→21:52)
[2018-08-29] MEDS: SODIUM CHLORIDE FLUSH SYRINGE 10 ML IV SCH ×2 (15:56→21:55)
[2018-08-29] MEDS: NEURONTIN PO SCH (21:53)
[2018-08-30] MEDS: APRESOLINE PO SCH ×3 (05:13→22:37)
[2018-08-30 05:34] LABS: Hematocrit 29.6 % (35.5-45.6); Hemoglobin 9.8 gm/dl (11.8-15.2); Mean Corpuscular HGB Conc 33 % (32-34); Mean Corpuscular Volume 81 fl (84-94); Platelet Count 158 K/mm3 (140-440); Red Blood Count 3.64 M/mm3 (3.65-5.03); Red Cell Distribution Width 16.8 % (13.2-15.2)
[2018-08-30 05:57] LABS: Calcium 8.7 mg/dL (8.4-10.2)
--- NOTE | 2018-08-30 10:42 | Progress Note ---
Assessment and Plan Continue to optimize volume status with dialysis and continue current cardiac management. From a cardiac standpoint, he remains stable and may be discharged home. Patient has been seen in conjunction with Dr. Fairbanks, who agrees with assessment and plan. Subjective Date of service: 08/30/18 Principal diagnosis: CHF; CKD;; HANSEN; Elevated d-dimer; Essential HTN; Morbid obesity; MARBELLA Interval history: Patient evaluated during dialysis. He is resting comfortably. BLE leg edema and scrotal edema are improved. Objective Last Vital Signs Temp 98.3 F 08/30/18 07:49 Pulse 71 08/30/18 07:49 Resp 18 08/30/18 07:49 BP 115/55 08/30/18 07:49 Pulse Ox 95 08/30/18 07:49 - Physical Examination General: Appears Well, No Apparent Distress HEENT: Positive: PERRL, Mucus Membranes Moist Neck: Positive: neck supple, trachea midline Cardiac: Positive: Reg Rate and Rhythm Lungs: Positive: clear to auscultation Neuro: Positive: Grossly Intact Abdomen: Positive: Soft, Active Bowel Sounds. Negative: Tender, Distended Skin: Positive: Other (Discoloration of BLE) Incision: Cardiac Cath Site Musculoskeletal: No Pain, Normal Range of Motion Extremities: Present: normal, edema, +1 Edema, Other (scrotal edema, BLE edema) - Labs and Meds CBC 08/30/18 Range/Units 04:17 WBC 6.8 (4.5-11.0) K/mm3 RBC 3.64 L (3.65-5.03) M/mm3 Hgb 9.8 L (11.8-15.2) gm/dl Hct 29.6 L (35.5-45.6) % Plt Count 158 (140-440) K/mm3 Comprehensive Metabolic Panel 08/30/18 Range/Units 04:17 Sodium 133 L (137-145) mmol/L Potassium 4.2 (3.6-5.0) mmol/L Chloride 96.4 L (98-107) mmol/L Carbon Dioxide 27 (22-30) mmol/L BUN 33 H (9-20) mg/dL Creatinine 2.9 H (0.8-1.5) mg/dL Glucose 142 H (75-100) mg/dL Calcium 8.7 (8.4-10.2) mg/dL - Imaging and Cardiology EKG: image reviewed (sinus rhythm at 76 bpm) Echo: report reviewed (2015 normal LV function.Positive bubble study PFO), other (08/17/2018 normal LV function and diastolic dysfunction mild to moderate LVH no significant regurgitations) - Telemetry EKG Rhythm: 1st Degree HB - Allied health notes Allied health notes reviewed: nursing
--- NOTE | 2018-08-30 11:25 | Progress Note ---
Assessment and Plan Severe renal failure, likely ESRD, dialysis dependent: -HD today. Eval for need daily. -First hemodialysis treatment was on 08/22/18. -Secondary GN workup was negative -Renal ultrasound on 08/16/18- Chronic medical renal disease. No Hydronephrosis. -No ACEI or ARB due to advanced renal failure -Renally dose all medications -Avoid Nephrotoxic agents -Strict I/O's monitoring -Will monitor for renal recovery Congestive Diastolic heart failure -Echo- LVEF is 55-60% -S/P IV Lasix -UF with HD -Cardiology onboard Anemia of chronic disease due to CKD: -On Epogen 10,000 units SQ every M,W,F -Monitor H/H Essential Hypertension: - Continue on current regimen - Adjust medications as needed Diabetes Mellitus type 2 on insulin: -On insulin as per primary team Patrick Fonseca MD [phone] Subjective Date of service: 08/30/18 Principal diagnosis: CHF; CKD;; HANSEN; Elevated d-dimer; Essential HTN; Morbid obesity; MARBELLA Interval history: Tolerated HD yesterday. HD again today. Objective - Exam Narrative Exam: GE: AAOX3, Obese HEENT: PERRLA Neck: Supple Chest: Coarse BS BL CVS: RRR Abd: Soft/Obese, BS+ Ext: 2-3 BLE edema Psyche: Appropriate mood - Vital Signs Vital signs: Vital Signs - 12hr 08/30/18 08/30/18 08/30/18 00:00 00:27 05:13 Temperature 98.5 F 98.1 F Pulse Rate 74 72 76 Respiratory 18 20 20 Rate Blood Pressure 145/66 116/61 O2 Sat by Pulse 100 97 96 Oximetry 08/30/18 07:49 Temperature 98.3 F Pulse Rate 71 Respiratory 18 Rate Blood Pressure 115/55 O2 Sat by Pulse 95 Oximetry - Lab 08/30/18 04:17 08/30/18 04:17 Most recent lab results Calcium 8.7 mg/dL (8.4-10.2) 08/30/18 04:17 Phosphorus 3.90 mg/dL (2.5-4.5) 08/25/18 04:43 56.1 mg/dL (0.1-20.0) H 08/20/18 12:09 132 mmol/L 08/17/18 04:00 79 mg/dL (5-11.8) H 08/17/18 04:00 Medications & Allergies - Medications Allergies/Adverse Reactions: Allergies canagliflozin [From Invokana] Allergy (Verified 08/15/18 17:49) Unknown IV CONTRAST DYE Allergy (Uncoded 08/15/18 17:49) Unknown Home Medications: Home Medications Medication Instructions Recorded Confirmed Last Taken Type Acetaminophen [Acetaminophen ER] 650 mg PO Q8HR PRN 08/16/18 08/16/18 Unknown History Amlodipine Besylate/Benazepril 1 each PO QDAY 08/16/18 08/16/18 Unknown History [Lotrel 10-40 mg] AtorvaSTATin [Lipitor] 40 mg PO QHS 08/16/18 08/16/18 Unknown History Cholecalciferol (Vitamin D3) 5,000 unit PO DAILY 08/16/18 08/16/18 Unknown History [Vitamin D3 5,000 UNIT] Doxylamine Succinate [Unisom] 25 mg PO QHS 08/16/18 08/16/18 Unknown History Gabapentin [Neurontin] 300 mg PO QHS 08/16/18 08/16/18 Unknown History Insulin Regular, Human [Humulin R 90 unit SQ BID 08/16/18 08/16/18 Unknown History U-500 Kwikpen] Loratadine [Claritin] 10 mg PO DAILY PRN 08/16/18 08/16/18 Unknown History Melatonin [Melatonin 3MG TAB] 3 mg PO QHS 08/16/18 08/16/18 Unknown History Niacin [Niacor] 500 mg PO DAILY 08/16/18 08/16/18 Unknown History Omeprazole 20 mg PO DAILY PRN 08/16/18 08/16/18 Unknown History Triamcinolone Acetonide [Nasacort 10.8 ml NS DAILY 08/16/18 08/16/18 Unknown History SPRAY] Active Medications: Generic Name Dose Route Start Last Admin Trade Name Freq PRN Reason Stop Dose Admin Acetaminophen 650 mg 08/16/18 03:07 08/21/18 21:55 Tylenol PO 650 mg Q4H PRN Administration Pain MILD(1-3)/Fever >100.5/FRAIRE Albuterol 2.5 mg 08/16/18 03:07 Proventil IH Q4HRT PRN Shortness Of Breath Aspirin 81 mg 08/16/18 10:00 08/29/18 15:55 Baby Aspirin PO 81 mg QDAY ARLENE Administration Atorvastatin Calcium 40 mg 08/16/18 22:00 08/29/18 21:53 Lipitor PO 40 mg QHS [facility] Administration Carvedilol 6.25 mg 08/17/18 12:00 08/29/18 21:54 Coreg PO Not Given BID [facility] Cholecalciferol 5,000 unit 08/16/18 10:00 08/29/18 15:54 Vitamin D3 PO 5,000 unit DAILY ARLENE Administration Dextrose 50 ml 08/16/18 03:13 D50w (25gm) Syringe IV PRN PRN Hypoglycemia Docusate Sodium 100 mg 08/16/18 10:00 08/29/18 21:53 Colace PO 100 mg BID [facility] Administration Epoetin Keon 10,000 unit 08/18/18 13:00 08/29/18 14:45 Procrit SUB-Q Not Given MOWEFR [facility] Gabapentin 300 mg 08/16/18 22:00 08/29/18 21:53 Neurontin PO 300 mg QHS [facility] Administration Heparin Sodium (Porcine) 5,000 unit 08/16/18 10:00 08/29/18 21:52 Heparin SUB-Q 5,000 unit Q12HR ARLENE Administration Hydralazine HCl 50 mg 08/16/18 14:00 08/30/18 05:13 Apresoline PO Not Given Q8HR [facility] Sodium Chloride 100 mls @ 999 mls/hr 08/28/18 09:53 Nacl 0.9% IV JANE PRN Hypotension Ceftriaxone Sodium 1 gm in 50 mls @ 100 mls/hr 08/28/18 20:00 08/29/18 15:55 Rocephin/Ns 1 Gm/50 Ml IV 100 mls/hr Q24HR ARLENE Administration Protocol Insulin Human Lispro 0 unit 08/16/18 07:30 08/29/18 22:27 Humalog SUB-Q 3 unit ACHS [facility] Administration Protocol Insulin Human Regular 5 units 08/16/18 07:30 08/29/18 18:40 Humulin R SUB-Q 5 units AC ARLENE Administration Nitroglycerin 0.4 mg 08/16/18 03:07 Nitrostat SL .Q5MIN PRN Chest Pain Ondansetron HCl 4 mg 08/16/18 03:07 08/16/18 16:39 Zofran IV 4 mg Q8H PRN Administration Nausea And Vomiting Oxycodone/Acetaminophen 1 tab 08/16/18 03:07 08/23/18 22:06 Percocet 5/325 PO 1 tab Q6H PRN Administration Pain, Moderate (4-6) Sodium Chloride 10 ml 08/16/18 10:00 08/29/18 21:55 Sodium Chloride Flush Syringe 10 Ml IV 10 ml BID ARLENE Administration Sodium Chloride 10 ml 08/16/18 03:07 08/16/18 06:17 Sodium Chloride Flush Syringe 10 Ml IV 10 ml PRN PRN Administration LINE FLUSH
[2018-08-30] MEDS ORDERED: NACL 0.9% 100 ML IV PRN (11:32)
--- NOTE | 2018-08-30 11:55 | Progress Note ---
Assessment and Plan Assessment and plan: Patient is a 58-year-old male with history of hypertension, diabetes, HLD, CKD stage III who presents to [facility] ED with c/o bilateral lower extremity swelling and shortness of breath. Pt scrotum is swollen obstructing view of his penis. Currently patient is on 2L supplemental O2 with saturation of 94%. D-dimer slightly elevated at 463.24. CK-MB elevated at 5.0; troponin negative. 2D ECHO conclusions Global LV systolic function is normal, estimated estimated EF is 55- 60%; abnormal LV diastolic dysfunction, mild to moderate concentric LV hypertrophy, trace mr, tr, RVSP calculated at 57 mmHg, Acute heart failure with preserved EF. Continue present management. No ACEI or ARB due to advanced renal failure. CXR on 08/19/18 showed no pulmonary edema or pneumonia. Continue hemodialysis per nephrology. Acute on Chronic kidney disease, stage 3: Patient had Perm-catheter placed 08/22 and hemodialysis was initiated. Secondary GN workup was negative. Renal ultrasound on 08/16/18- Chronic medical renal disease. No Hydronephrosis. No ACEI or ARB due to advanced renal failure. Renally dose all medications. Avoid Nephrotoxic agents. Strict I/O's monitoring. Nephrology to determine long-term needs for hemodialysis. Cr 2.9 today. Still monitoring for Renal Recovery Anasarca and scrotal edema. Elevated D-Dimer. V/Q scan negative Hypertensive urgency: iv antihypertensives as needed, low salt diet DM type 2; ada and ssi HLD: treat with statins Malnutrition mild to moderate: counseling done, consulted Riffler Tender Right toe pressure ulcer, poa, at least stage 3, heel ulcers bilateral also: see admission photos, local wound care done, continue Wound care Morbid obese, BMI 49: counseled on lifestyle modification and weight reduction Full code status History Interval history: Feels better Less swelling No shortness of breath Muscle cramps Hospitalist Physical - Physical exam Narrative exam: Gen: Not in acute distress,Sitting up. Morbidly obese HEENT: Normocephalic, atraumatic Neck: supple, no JVD Heart: S1 and S2 reg, no murmurs, rubs or gallop Lungs: Clear, no crackles, no wheeze Abd: soft, non tender, non distended, normal BS Ext: Bilateral leg edema, no clubbing, no cyanosis, Skin:anasarca Neuro: Awake,alert, oriented x 3, moves all ext, non focal Psych:Normal mood - Constitutional Vitals: Temp Pulse Resp BP Pulse Ox 98.3 F 67 18 126/67 95 08/30/18 09:30 08/30/18 11:30 08/30/18 09:30 08/30/18 11:30 08/30/18 07:49 General appearance: Present: no acute distress, obese Results - Labs CBC & Chem 7: 08/30/18 04:17 08/30/18 04:17 Labs: Laboratory Last Values WBC 6.8 K/mm3 (4.5-11.0) 08/30/18 04:17 RBC 3.64 M/mm3 (3.65-5.03) L 08/30/18 04:17 Hgb 9.8 gm/dl (11.8-15.2) L 08/30/18 04:17 Hct 29.6 % (35.5-45.6) L 08/30/18 04:17 MCV 81 fl (84-94) L 08/30/18 04:17 MCH 27 pg (28-32) L 08/30/18 04:17 MCHC 33 % (32-34) 08/30/18 04:17 RDW 16.8 % (13.2-15.2) H 08/30/18 04:17 Plt Count 158 K/mm3 (140-440) 08/30/18 04:17 Lymph % (Auto) 26.6 % (13.4-35.0) 08/17/18 07:30 [place] % (Auto) [place] [employer] 08/25/18 04:43 Eos % (Auto) 6.6 % (0.0-4.3) H 08/17/18 07:30 Baso % (Auto) 1.1 % (0.0-1.8) 08/17/18 07:30 Lymph # 1.3 K/mm3 (1.2-5.4) 08/17/18 07:30 [place] # 0.7 K/mm3 (0.0-0.8) 08/17/18 07:30 Eos # 0.3 K/mm3 (0.0-0.4) 08/17/18 07:30 Baso # 0.1 K/mm3 (0.0-0.1) 08/17/18 07:30 Add Manual Diff Complete 08/25/18 04:43 Total Counted 100 08/25/18 04:43 Seg Neutrophils % 51.7 % (40.0-70.0) 08/17/18 07:30 Seg Neuts % (Manual) 62.0 % (40.0-70.0) 08/25/18 04:43 0 % 08/25/18 04:43 23.0 % (13.4-35.0) 08/25/18 04:43 Reactive Lymphs % (Man) 0 % 08/25/18 04:43 10.0 % (0.0-7.3) H 08/25/18 04:43 4.0 % (0.0-4.3) 08/25/18 04:43 1.0 % (0.0-1.8) 08/25/18 04:43 0 % 08/25/18 04:43 0 % 08/25/18 04:43 0 % 08/25/18 04:43 0 % 08/25/18 04:43 Nucleated RBC % Not Reportable 08/25/18 04:43 Seg Neutrophils # 2.6 K/mm3 (1.8-7.7) 08/17/18 07:30 Seg Neutrophils # Man 3.3 K/mm3 (1.8-7.7) 08/25/18 04:43 Band Neutrophils # 0.0 K/mm3 08/25/18 04:43 1.2 K/mm3 (1.2-5.4) 08/25/18 04:43 Abs React Lymphs (Man) 0.0 K/mm3 08/25/18 04:43 0.5 K/mm3 (0.0-0.8) 08/25/18 04:43 0.2 K/mm3 (0.0-0.4) 08/25/18 04:43 0.1 K/mm3 (0.0-0.1) 08/25/18 04:43 0.0 K/mm3 08/25/18 04:43 0.0 K/mm3 08/25/18 04:43 0.0 K/mm3 08/25/18 04:43 Blast Cells # 0.0 K/mm3 08/25/18 04:43 WBC Morphology Not Reportable 08/25/18 04:43 Hypersegmented Neuts Not Reportable 08/25/18 04:43 Hyposegmented Neuts Not Reportable 08/25/18 04:43 Hypogranular Neuts Not Reportable 08/25/18 04:43 Not Reportable 08/25/18 04:43 Not Reportable 08/25/18 04:43 Not Reportable 08/25/18 04:43 Not Reportable 08/25/18 04:43 Not Reportable 08/25/18 04:43 Not Reportable 08/25/18 04:43 Consistent w auto 08/25/18 04:43 Not Reportable 08/25/18 04:43 Plt Clumps, EDTA Not Reportable 08/25/18 04:43 Rare 08/25/18 04:43 Not Reportable 08/25/18 04:43 Not Reportable 08/25/18 04:43 Plt Morphology Comment Not Reportable 08/25/18 04:43 RBC Morphology Not Reportable 08/25/18 04:43 Dimorphic RBCs Not Reportable 08/25/18 04:43 Not Reportable 08/25/18 04:43 Not Reportable 08/25/18 04:43 1+ 08/25/18 04:43 1+ 08/25/18 04:43 Not Reportable 08/25/18 04:43 Not Reportable 08/25/18 04:43 Not Reportable 08/25/18 04:43 Not Reportable 08/25/18 04:43 Not Reportable 08/25/18 04:43 Not Reportable 08/25/18 04:43 Not Reportable 08/25/18 04:43 Not Reportable 08/25/18 04:43 Not Reportable 08/25/18 04:43 Not Reportable 08/25/18 04:43 Not Reportable 08/25/18 04:43 Not Reportable 08/25/18 04:43 Not Reportable 08/25/18 04:43 Not Reportable 08/25/18 04:43 1+ 08/25/18 04:43 Acanthocytes (Spur) Not Reportable 08/25/18 04:43 Rouleaux Not Reportable 08/25/18 04:43 Not Reportable 08/25/18 04:43 Not Reportable 08/25/18 04:43 Not Reportable 08/25/18 04:43 Not Reportable 08/25/18 04:43 Hem Pathologist Commnt No 08/25/18 04:43 463.24 ng/mlDDU (0-234) H 08/15/18 21:24 Sodium 133 mmol/L (137-145) L 08/30/18 04:17 Potassium 4.2 mmol/L (3.6-5.0) 08/30/18 04:17 Chloride 96.4 mmol/L (98-107) L 08/30/18 04:17 Carbon Dioxide 27 mmol/L (22-30) 08/30/18 04:17 14 mmol/L 08/30/18 04:17 BUN 33 mg/dL (9-20) H 08/30/18 04:17 2.9 mg/dL (0.8-1.5) H 08/30/18 04:17 Estimated GFR 23 ml/min 08/30/18 04:17 11 % 08/30/18 04:17 Glucose 142 mg/dL (75-100) H 08/30/18 04:17 POC Glucose 134 (70-105) H 08/30/18 07:56 7.4 % (4-6) H 08/16/18 03:37 Lactic Acid 0.70 mmol/L (0.7-2.0) 08/20/18 04:53 Calcium 8.7 mg/dL (8.4-10.2) 08/30/18 04:17 Phosphorus 3.90 mg/dL (2.5-4.5) 08/25/18 04:43 Iron 30 ug/dL (49-181) L 08/16/18 13:52 TIBC 352 mcg/dL (250-450) 08/16/18 13:52 78.2 ng/mL (13.0-400.0) 08/18/18 08:34 0.40 mg/dL (0.1-1.2) 08/15/18 18:54 AST 25 units/L (5-40) 08/15/18 18:54 ALT 15 units/L (7-56) 08/15/18 18:54 74 units/L (35-129) 08/15/18 18:54 340 units/L (55-170) H 08/15/18 21:24 CK-MB (CK-2) 5.0 ng/mL (0.0-4.0) H 08/15/18 21:24 CK-MB (CK-2) Rel Index 1.4 (0-4) 08/15/18 21:24 0.026 ng/mL (0.00-0.029) 08/15/18 21:24 NT-Pro-B Natriuret Pep 877.6 pg/mL (0-900) 08/17/18 11:13 6.1 g/dL (6.1-8.1) 08/17/18 11:13 6.7 g/dL (6.3-8.2) 08/15/18 18:54 2.9 g/dL (3.8-4.8) L 08/17/18 11:13 0.9 % 08/15/18 18:54 0.4 g/dL (0.2-0.3) H 08/17/18 11:13 0.7 g/dL (0.5-0.9) 08/17/18 11:13 0.5 g/dL (0.2-0.5) 08/17/18 11:13 1.1 g/dL (0.8-1.7) 08/17/18 11:13 Abnorm Protein Band 1 see below 08/17/18 11:13 PEP Interpretation see below H 08/17/18 11:13 Triglycerides 140 mg/dL (2-149) 08/16/18 03:37 Cholesterol 147 mg/dL (50-199) 08/16/18 03:37 88 mg/dL (50-130) 08/16/18 03:37 37 mg/dL (40-59) L 08/16/18 03:37 3.97 % 08/16/18 03:37 Straw (Yellow) 08/17/18 04:00 Clear (Clear) 08/17/18 04:00 7.0 (5.0-7.0) 08/17/18 04:00 Ur Specific [place] 1.006 (1.003-1.030) 08/17/18 04:00 100 mg/dl mg/dL (Negative) 08/17/18 04:00 Neg mg/dL (Negative) 08/17/18 04:00 Neg mg/dL (Negative) 08/17/18 04:00 Neg (Negative) 08/17/18 04:00 Neg (Negative) 08/17/18 04:00 Neg (Negative) 08/17/18 04:00 < 2.0 mg/dL (<2.0) 08/17/18 04:00 Ur Leukocyte Esterase Neg (Negative) 08/17/18 04:00 < 1.0 /HPF (0.0-6.0) 08/17/18 04:00 2.0 /HPF (0.0-6.0) 08/17/18 04:00 U Epithel Cells (Auto) 1.0 /HPF (0-13.0) 08/15/18 18:47 1+ /HPF (Negative) 08/17/18 04:00 Few /HPF 08/15/18 18:47 None seen (None Seen) 08/17/18 04:00 Ur Random Creatinine See scanned report 08/17/18 10:40 U Random Total Protein See scanned report 08/17/18 10:40 800 ml 08/20/18 12:09 56.1 mg/dL (0.1-20.0) H 08/20/18 12:09 Height (in) 68.0 inches 08/20/18 12:09 Weight (lb) 348.8 lbs 08/20/18 12:09 6 08/20/18 12:09 Protein/Creatinin Ratio See scanned report 08/17/18 10:40 132 mmol/L 08/17/18 04:00 106 08/17/18 04:00 79 mg/dL (5-11.8) H 08/17/18 04:00 U Abnormal Prot Band 1 See scanned report 08/17/18 10:40 U Abnormal Prot Band 2 See scanned report 08/17/18 10:40 U Abnormal Prot Band 3 See scanned report 08/17/18 10:40 Immunofix Electrophor see below 08/17/18 11:13 JELANI Screen Negative (Negative) 08/17/18 11:13 Double Strand DNA Ab <1 IU/mL (<=4) 08/17/18 11:13 144 mg/dL (82-185) 08/17/18 11:13 23 mg/dL (15-53) 08/17/18 11:13 RPR Nonreactive (Nonreactive) 08/17/18 11:13 Hepatitis A IgM Ab Non-reactive (NonReactive) 08/17/18 11:13 Hep Bs Antigen Non-reactive (Negative) 08/17/18 11:13 Hep B Core IgM Ab Non-reactive (NonReactive) 08/17/18 11:13 Non-reactive (NonReactive) 08/17/18 11:13 HIV 1&2 Antibody Rapid Non react (Non React) 08/17/18 11:13 Non react (Non React) 08/17/18 11:13 Active Medications - Current Medications Current Medications: Generic Name Dose Route Start Last Admin Trade Name Freq PRN Reason Stop Dose Admin Acetaminophen 650 mg 08/16/18 03:07 08/21/18 21:55 Tylenol PO 650 mg Q4H PRN Administration Pain MILD(1-3)/Fever >100.5/FRAIRE Albuterol 2.5 mg 08/16/18 03:07 Proventil IH Q4HRT PRN Shortness Of Breath Aspirin 81 mg 08/16/18 10:00 08/29/18 15:55 Baby Aspirin PO 81 mg QDAY ARLENE Administration Atorvastatin Calcium 40 mg 08/16/18 22:00 08/29/18 21:53 Lipitor PO 40 mg QHS [facility] Administration Carvedilol 6.25 mg 08/17/18 12:00 08/29/18 21:54 Coreg PO Not Given BID [facility] Cholecalciferol 5,000 unit 08/16/18 10:00 08/29/18 15:54 Vitamin D3 PO 5,000 unit DAILY ARLENE Administration Dextrose 50 ml 08/16/18 03:13 D50w (25gm) Syringe IV PRN PRN Hypoglycemia Docusate Sodium 100 mg 08/16/18 10:00 08/29/18 21:53 Colace PO 100 mg BID [facility] Administration Epoetin [place] 10,000 unit 08/18/18 13:00 08/29/18 14:45 Procrit SUB-Q Not Given MOWEFR ARLENE Gabapentin 300 mg 08/16/18 22:00 08/29/18 21:53 Neurontin PO 300 mg QHS ARLENE Administration Heparin Sodium (Porcine) 5,000 unit 08/16/18 10:00 08/29/18 21:52 Heparin SUB-Q 5,000 unit Q12HR ARLENE Administration Hydralazine HCl 50 mg 08/16/18 14:00 08/30/18 05:13 Apresoline PO Not Given Q8HR ARLENE Sodium Chloride 100 mls @ 999 mls/hr 08/28/18 09:53 Nacl 0.9% IV JANE PRN Hypotension Ceftriaxone Sodium 1 gm in 50 mls @ 100 mls/hr 08/28/18 20:00 08/29/18 15:55 Rocephin/Ns 1 Gm/50 Ml IV 100 mls/hr Q24HR ARLENE Administration Protocol Sodium Chloride 100 mls @ 999 mls/hr 08/30/18 11:32 Nacl 0.9% IV JANE PRN Hypotension Insulin Human Lispro 0 unit 08/16/18 07:30 08/29/18 22:27 Humalog SUB-Q 3 unit ACHS ARLENE Administration Protocol Insulin Human Regular 5 units 08/16/18 07:30 08/29/18 18:40 Humulin R SUB-Q 5 units AC ARLENE Administration Nitroglycerin 0.4 mg 08/16/18 03:07 Nitrostat SL .Q5MIN PRN Chest Pain Ondansetron HCl 4 mg 08/16/18 03:07 08/16/18 16:39 Zofran IV 4 mg Q8H PRN Administration Nausea And Vomiting Oxycodone/Acetaminophen 1 tab 08/16/18 03:07 08/23/18 22:06 Percocet 5/325 PO 1 tab Q6H PRN Administration Pain, Moderate (4-6) Sodium Chloride 10 ml 08/16/18 10:00 08/29/18 21:55 Sodium Chloride Flush Syringe 10 Ml IV 10 ml BID ARLENE Administration Sodium Chloride 10 ml 08/16/18 03:07 08/16/18 06:17 Sodium Chloride Flush Syringe 10 Ml IV 10 ml PRN PRN Administration LINE FLUSH Nutrition/Malnutrition Assess - Dietary Evaluation Nutrition/Malnutrition Findings: Nutrition Notes Start: 08/16/18 09:25 Freq: Status: Active Protocol: Document 08/19/18 14:48 GHASSAN (Rec: 08/19/18 14:54 GHASSAN [email or web address]) Nutrition Notes Initial or Follow up Brief Note Current Diagnosis CKD(stage I-IV),Diabetes Other Pertinent Diagnosis Fluid retention in scrotum and BLE edema, wounds on toe, heel and leg Current Diet Cardiac/consistent CHO Labs/Tests Na 134 BUN 55 Cr 4.4 Pertinent Medications Reviewed [place] Body Weight (kg) 0 Subjective/Other Information Pt reports good appetite; has been consuming 75-100% of meals. Nutrition Intervention Revisit per MD consult or patient Sign Off request:
--- NOTE | 2018-08-30 12:10 | Progress Note ---
Assessment and Plan Continue to optimize volume status with dialysis and continue current cardiac management. From a cardiac standpoint, he remains stable and may be discharged home. Patient has been seen in conjunction with Dr. Fairbanks, who agrees with assessment and plan. - Patient Problems (1) Acute heart failure with preserved ejection fraction Current Visit: Yes Status: Acute (2) Acute on chronic renal failure Current Visit: Yes Status: Acute (3) Anasarca Current Visit: Yes Status: Acute (4) Anemia Current Visit: Yes Status: Acute Qualifiers: Anemia type: unspecified type Qualified Code(s): D64.9 - Anemia, unspecified (5) Thrombocytopenia Current Visit: Yes Status: Acute (6) Chronic venous insufficiency Current Visit: Yes Status: Chronic (7) Essential hypertension Current Visit: Yes Status: Chronic (8) Hyperlipemia, mixed Current Visit: Yes Status: Chronic (9) Morbid obesity Current Visit: Yes Status: Chronic (10) MARBELLA (obstructive sleep apnea) Current Visit: Yes Status: Chronic Subjective Date of service: 08/30/18 Principal diagnosis: CHF; CKD;; HANSEN; Elevated d-dimer; Essential HTN; Morbid obesity; MARBELLA Interval history: Patient evaluated during dialysis. He is resting comfortably. BLE leg edema and scrotal edema are improved. Objective Last Vital Signs Temp 98.3 F 08/30/18 09:30 Pulse 67 08/30/18 11:30 Resp 18 08/30/18 09:30 BP 126/67 08/30/18 11:30 Pulse Ox 95 08/30/18 07:49 - Physical Examination General: Appears Well, No Apparent Distress HEENT: Positive: PERRL, Mucus Membranes Moist Neck: Positive: neck supple, trachea midline Cardiac: Positive: Reg Rate and Rhythm Lungs: Positive: clear to auscultation Neuro: Positive: Grossly Intact Abdomen: Positive: Soft, Active Bowel Sounds. Negative: Tender, Distended Skin: Positive: Other (Discoloration of BLE) Incision: Cardiac Cath Site Musculoskeletal: No Pain, Normal Range of Motion Extremities: Present: normal, edema, +1 Edema, Other (scrotal edema, BLE edema) - Labs and Meds CBC 08/30/18 Range/Units 04:17 WBC 6.8 (4.5-11.0) K/mm3 RBC 3.64 L (3.65-5.03) M/mm3 Hgb 9.8 L (11.8-15.2) gm/dl Hct 29.6 L (35.5-45.6) % Plt Count 158 (140-440) K/mm3 Comprehensive Metabolic Panel 08/30/18 Range/Units 04:17 Sodium 133 L (137-145) mmol/L Potassium 4.2 (3.6-5.0) mmol/L Chloride 96.4 L (98-107) mmol/L Carbon Dioxide 27 (22-30) mmol/L BUN 33 H (9-20) mg/dL Creatinine 2.9 H (0.8-1.5) mg/dL Glucose 142 H (75-100) mg/dL Calcium 8.7 (8.4-10.2) mg/dL - Imaging and Cardiology EKG: image reviewed (sinus rhythm at 76 bpm) Echo: report reviewed (2015 normal LV function.Positive bubble study PFO), other (08/17/2018 normal LV function and diastolic dysfunction mild to moderate LVH no significant regurgitations) - Telemetry EKG Rhythm: 1st Degree HB - Allied health notes Allied health notes reviewed: nursing
[2018-08-30] MEDS: HumaLOG SUB-Q SCH ×3 (12:25→22:39)
[2018-08-30] MEDS: HumuLIN R SUB-Q SCH ×2 (12:25→17:07)
[2018-08-30] MEDS: PROCRIT SUB-Q SCH (12:35)
[2018-08-30] MEDS ORDERED: NACL 0.9 (PRIMING MACHINE ONLY DIALYSIS) MC ONE (12:56)
--- NOTE | 2018-08-30 13:33 | Progress Note ---
Assessment and Plan . Patient is on room air and undergoing Hemodialysis to day. O2 sat 95%. No acute respiratory distress. Recommend to use O2 2L when he is not on BiPAP. Patient uses BIPAP at night . - Patient Problems (1) CHF (congestive heart failure) Current Visit: Yes Status: Acute Qualifiers: Heart failure type: diastolic Heart failure chronicity: acute Qualified Code(s): I50.31 - Acute diastolic (congestive) heart failure Plan to address problem: Management as per cardiology. (2) CKD (chronic kidney disease) Current Visit: Yes Status: Acute Qualifiers: Chronic kidney disease stage: stage 3 (moderate) Qualified Code(s): N18.3 - Chronic kidney disease, stage 3 (moderate) Plan to address problem: Patient is on hemodialysis. Management as per nephrology. (3) HANSEN (dyspnea on exertion) Current Visit: Yes Status: Acute Plan to address problem: Albuterol aerosol treatments q 6 hours prn for shortness of breath. O2 2 litres via nasal canula BIPAP during night time and PRN during day time for shortness of breath. Continue S/C Heparin. (4) Elevated d-dimer Current Visit: Yes Status: Acute Plan to address problem: Venous doppler studies reported negative for DVT. Perfusion lung scan reported low probabily for pulmonary emboli. Continue S/C heparin. (5) Essential hypertension Current Visit: Yes Status: Chronic Plan to address problem: Management as per primary care. (6) Morbid obesity Current Visit: Yes Status: Chronic Plan to address problem: Recommend to loose weight. Exercise and diet. (7) Sleep apnea with use of continuous positive airway pressure (CPAP) Current Visit: Yes Status: Acute Plan to address problem: Continue BIPAP as using at home. Subjective Date of service: 08/30/18 Principal diagnosis: CHF; CKD;; HANSEN; Elevated d-dimer; Essential HTN; Morbid obesity; MARBELLA Interval history: Patient is on room air and undergoing Hemodialysis to day. O2 sat 95%. No acute respiratory distress. Recommend to use O2 2L when he is not on BiPAP. Patient uses BIPAP at night . Objective Vital Signs - 12hr 08/30/18 08/30/18 08/30/18 05:13 07:49 09:30 Temperature 98.1 F 98.3 F 98.3 F Pulse Rate 76 71 70 Respiratory 20 18 18 Rate Blood Pressure 116/61 115/55 114/62 O2 Sat by Pulse 96 95 Oximetry 08/30/18 08/30/18 08/30/18 09:40 10:00 10:15 Temperature Pulse Rate 70 68 69 Respiratory Rate Blood Pressure 114/62 103/60 111/68 O2 Sat by Pulse Oximetry 08/30/18 08/30/18 08/30/18 10:30 10:45 11:00 Temperature Pulse Rate 67 67 67 Respiratory Rate Blood Pressure 117/68 114/61 114/70 O2 Sat by Pulse Oximetry 08/30/18 08/30/18 11:15 11:30 Temperature Pulse Rate 67 67 Respiratory Rate Blood Pressure 120/65 126/67 O2 Sat by Pulse Oximetry Constitutional: no acute distress, alert, other (Morbidly Obese middle aged CM, on CPAP with FFM) Eyes: non-icteric ENT: oropharynx moist Neck: supple, no lymphadenopathy, no JVD, other (large neck circumference) Effort: mildly labored Ascultation: Bilateral: diminished breath sounds, rhonchi (scant in bases) Percussion: Bilateral: not dull Cardiovascular: regular rate and rhythm Gastrointestinal: normoactive bowel sounds, soft, non-tender, other (pro tuberant) Integumentary: cellulitis, other (Cellulitis and wounds in both lower legs.) Extremities: no cyanosis, pink and warm, pulses normal, edema (trace to 1+, chronic venous stasis changes) Neurologic: normal mental status, non-focal exam, pupils equal and round, CN II- XII normal Psychiatric: mood appropriate, affect normal CBC and BMP: 08/30/18 04:17 08/30/18 04:17 ABG, PT/INR, D-dimer: PT/INR, D-dimer 463.24 ng/mlDDU (0-234) H 08/15/18 21:24 Abnormal lab findings: Abnormal Labs 08/15/18 08/15/18 08/15/18 18:02 18:54 18:54 WBC RBC 3.61 L Hgb 9.8 L Hct 30.1 L MCV MCH 27 L RDW 16.8 H Plt Count [place] % (Auto) 10.7 H Eos % (Auto) 5.9 H Seg Neuts % (Manual) Lymphocytes % (Manual) Monocytes % (Manual) Eosinophils % (Manual) Basophils % (Manual) Seg Neutrophils # Sadi D-Dimer Sodium Chloride 107.7 H BUN 25 H Creatinine 2.5 H Glucose 159 H POC Glucose 124 H Hemoglobin A1c Calcium Phosphorus Iron Total Creatine Kinase CK-MB (CK-2) Albumin 3.2 L Gpbcb-9-Yntzpuuei PEP Interpretation HDL Cholesterol Urine Creatinine Urine Total Protein 08/15/18 08/15/18 08/16/18 21:24 21:24 03:37 WBC RBC Hgb Hct MCV MCH RDW Plt Count [place] % (Auto) Eos % (Auto) Seg Neuts % (Manual) Lymphocytes % (Manual) Monocytes % (Manual) Eosinophils % (Manual) Basophils % (Manual) Seg Neutrophils # Sadi D-Dimer 463.24 H Sodium Chloride BUN Creatinine Glucose POC Glucose Hemoglobin A1c 7.4 H Calcium Phosphorus Iron Total Creatine Kinase 340 H CK-MB (CK-2) 5.0 H Albumin Ixtky-9-Keszfwtws PEP Interpretation HDL Cholesterol Urine Creatinine Urine Total Protein 08/16/18 08/16/18 08/16/18 03:37 07:54 12:01 WBC RBC Hgb Hct MCV MCH RDW Plt Count [place] % (Auto) Eos % (Auto) Seg Neuts % (Manual) Lymphocytes % (Manual) Monocytes % (Manual) Eosinophils % (Manual) Basophils % (Manual) Seg Neutrophils # Sadi D-Dimer Sodium Chloride BUN Creatinine Glucose POC Glucose 113 H 179 H Hemoglobin A1c Calcium Phosphorus Iron Total Creatine Kinase CK-MB (CK-2) Albumin Kmeis-1-Hzopesuux PEP Interpretation HDL Cholesterol 37 L Urine Creatinine Urine Total Protein 08/16/18 08/16/18 08/16/18 13:52 17:44 21:21 WBC RBC Hgb Hct MCV MCH RDW Plt Count [place] % (Auto) Eos % (Auto) Seg Neuts % (Manual) Lymphocytes % (Manual) Monocytes % (Manual) Eosinophils % (Manual) Basophils % (Manual) Seg Neutrophils # Sadi D-Dimer Sodium Chloride BUN Creatinine Glucose POC Glucose 221 H 165 H Hemoglobin A1c Calcium Phosphorus Iron 30 L Total Creatine Kinase CK-MB (CK-2) Albumin Eayxv-2-Mclmwwxic PEP Interpretation HDL Cholesterol Urine Creatinine Urine Total Protein 08/17/18 08/17/18 08/17/18 04:00 07:30 07:30 WBC RBC Hgb 10.3 L Hct 31.5 L MCV 82 L MCH 27 L RDW 16.8 H Plt Count [place] % (Auto) 14.0 H Eos % (Auto) 6.6 H Seg Neuts % (Manual) Lymphocytes % (Manual) Monocytes % (Manual) Eosinophils % (Manual) Basophils % (Manual) Seg Neutrophils # Sadi D-Dimer Sodium Chloride BUN 32 H Creatinine 2.9 H Glucose 180 H POC Glucose Hemoglobin A1c Calcium Phosphorus Iron Total Creatine Kinase CK-MB (CK-2) Albumin Ocjlt-4-Ywablhdqt PEP Interpretation HDL Cholesterol Urine Creatinine 22.4 H Urine Total Protein 79 H 08/17/18 08/17/18 08/17/18 07:34 11:13 12:17 WBC RBC Hgb Hct MCV MCH RDW Plt Count [place] % (Auto) Eos % (Auto) Seg Neuts % (Manual) Lymphocytes % (Manual) Monocytes % (Manual) Eosinophils % (Manual) Basophils % (Manual) Seg Neutrophils # Sadi D-Dimer Sodium Chloride BUN Creatinine Glucose POC Glucose 169 H 207 H Hemoglobin A1c Calcium Phosphorus Iron Total Creatine Kinase CK-MB (CK-2) Albumin 2.9 L Wxjza-3-Hgredagaj 0.4 H PEP Interpretation see below H HDL Cholesterol Urine Creatinine Urine Total Protein 08/17/18 08/17/18 08/18/18 16:36 21:17 07:05 WBC RBC Hgb Hct MCV MCH RDW Plt Count [place] % (Auto) Eos % (Auto) Seg Neuts % (Manual) Lymphocytes % (Manual) Monocytes % (Manual) Eosinophils % (Manual) Basophils % (Manual) Seg Neutrophils # Sadi D-Dimer Sodium 134 L Chloride 95.9 L BUN 43 H Creatinine 3.8 H Glucose 150 H POC Glucose 184 H 209 H Hemoglobin A1c Calcium Phosphorus Iron Total Creatine Kinase CK-MB (CK-2) Albumin Arxhk-4-Rihrrzibw PEP Interpretation HDL Cholesterol Urine Creatinine Urine Total Protein 08/18/18 08/18/18 08/18/18 07:53 08:34 11:53 WBC RBC Hgb 10.8 L Hct 33.8 L MCV MCH 27 L RDW 16.3 H Plt Count [place] % (Auto) Eos % (Auto) Seg Neuts % (Manual) Lymphocytes % (Manual) Monocytes % (Manual) Eosinophils % (Manual) Basophils % (Manual) Seg Neutrophils # Sadi D-Dimer Sodium Chloride BUN Creatinine Glucose POC Glucose 139 H 191 H Hemoglobin A1c Calcium Phosphorus Iron Total Creatine Kinase CK-MB (CK-2) Albumin Qkkoy-8-Oblrgbekh PEP Interpretation HDL Cholesterol Urine Creatinine Urine Total Protein 08/18/18 08/18/18 08/19/18 15:54 20:49 05:28 WBC RBC Hgb 9.7 L Hct 30.1 L MCV 82 L MCH 26 L RDW 16.6 H Plt Count 136 L [place] % (Auto) Eos % (Auto) Seg Neuts % (Manual) Lymphocytes % (Manual) Monocytes % (Manual) Eosinophils % (Manual) Basophils % (Manual) Seg Neutrophils # Man D-Dimer Sodium Chloride BUN Creatinine Glucose POC Glucose 150 H 138 H Hemoglobin A1c Calcium Phosphorus Iron Total Creatine Kinase CK-MB (CK-2) Albumin Emcrg-9-Xxldtaukn PEP Interpretation HDL Cholesterol Urine Creatinine Urine Total Protein 08/19/18 08/19/18 08/19/18 05:28 07:43 11:57 WBC RBC Hgb Hct MCV MCH RDW Plt Count [place] % (Auto) Eos % (Auto) Seg Neuts % (Manual) Lymphocytes % (Manual) Monocytes % (Manual) Eosinophils % (Manual) Basophils % (Manual) Seg Neutrophils # Man D-Dimer Sodium 134 L Chloride 96.2 L BUN 55 H Creatinine 4.4 H Glucose 118 H POC Glucose 162 H 280 H Hemoglobin A1c Calcium Phosphorus Iron Total Creatine Kinase CK-MB (CK-2) Albumin Hbsrd-3-Uzacgjcch PEP Interpretation HDL Cholesterol Urine Creatinine Urine Total Protein 08/19/18 08/19/18 08/20/18 15:41 21:44 04:53 WBC 3.5 L RBC 3.58 L Hgb 9.4 L Hct 29.5 L MCV 83 L MCH 26 L RDW 16.4 H Plt Count 121 L [place] % (Auto) Eos % (Auto) Seg Neuts % (Manual) Lymphocytes % (Manual) Monocytes % (Manual) 16.0 H Eosinophils % (Manual) Basophils % (Manual) 3.0 H Seg Neutrophils # Man 1.6 L D-Dimer Sodium Chloride BUN Creatinine Glucose POC Glucose 167 H 234 H Hemoglobin A1c Calcium Phosphorus Iron Total Creatine Kinase CK-MB (CK-2) Albumin Uuwka-8-Qaflunztk PEP Interpretation HDL Cholesterol Urine Creatinine Urine Total Protein 08/20/18 08/20/18 08/20/18 04:53 08:13 12:09 WBC RBC Hgb Hct MCV MCH RDW Plt Count [place] % (Auto) Eos % (Auto) Seg Neuts % (Manual) Lymphocytes % (Manual) Monocytes % (Manual) Eosinophils % (Manual) Basophils % (Manual) Seg Neutrophils # Sadi D-Dimer Sodium 136 L Chloride BUN 57 H Creatinine 3.3 H Glucose 136 H POC Glucose 124 H Hemoglobin A1c Calcium Phosphorus 5.50 H Iron Total Creatine Kinase CK-MB (CK-2) Albumin Eigjg-7-Ztojzcjad PEP Interpretation HDL Cholesterol Urine Creatinine 56.1 H Urine Total Protein 08/20/18 08/20/18 08/20/18 12:49 18:26 20:53 WBC RBC Hgb Hct MCV MCH RDW Plt Count [place] % (Auto) Eos % (Auto) Seg Neuts % (Manual) Lymphocytes % (Manual) Monocytes % (Manual) Eosinophils % (Manual) Basophils % (Manual) Seg Neutrophils # Sadi D-Dimer Sodium Chloride BUN Creatinine Glucose POC Glucose 145 H 175 H 184 H Hemoglobin A1c Calcium Phosphorus Iron Total Creatine Kinase CK-MB (CK-2) Albumin Vsnqz-9-Ewjmobcyr PEP Interpretation HDL Cholesterol Urine Creatinine Urine Total Protein 08/21/18 08/21/18 08/21/18 04:28 04:28 08:58 WBC 3.8 L RBC 3.42 L Hgb 9.2 L Hct 28.4 L MCV 83 L MCH 27 L RDW 16.4 H Plt Count 126 L [place] % (Auto) Eos % (Auto) Seg Neuts % (Manual) Lymphocytes % (Manual) Monocytes % (Manual) 15.0 H Eosinophils % (Manual) Basophils % (Manual) Seg Neutrophils # Sadi D-Dimer Sodium 134 L Chloride 96.5 L BUN 59 H Creatinine 3.4 H Glucose 190 H POC Glucose 159 H Hemoglobin A1c Calcium Phosphorus 5.10 H Iron Total Creatine Kinase CK-MB (CK-2) Albumin Pobgq-8-Ilvmzxcwr PEP Interpretation HDL Cholesterol Urine Creatinine Urine Total Protein 08/21/18 08/21/18 08/21/18 12:25 17:10 21:43 WBC RBC Hgb Hct MCV MCH RDW Plt Count [place] % (Auto) Eos % (Auto) Seg Neuts % (Manual) Lymphocytes % (Manual) Monocytes % (Manual) Eosinophils % (Manual) Basophils % (Manual) Seg Neutrophils # Sadi D-Dimer Sodium Chloride BUN Creatinine Glucose POC Glucose 222 H 152 H 150 H Hemoglobin A1c Calcium Phosphorus Iron Total Creatine Kinase CK-MB (CK-2) Albumin Zblvo-0-Qwgdqehjz PEP Interpretation HDL Cholesterol Urine Creatinine Urine Total Protein 08/22/18 08/22/18 08/22/18 04:50 04:51 08:08 WBC 3.7 L RBC 3.37 L Hgb 9.0 L Hct 27.8 L MCV 83 L MCH 27 L RDW 16.9 H Plt Count 124 L [place] % (Auto) Eos % (Auto) Seg Neuts % (Manual) Lymphocytes % (Manual) Monocytes % (Manual) 13.0 H Eosinophils % (Manual) 11.0 H Basophils % (Manual) Seg Neutrophils # Man 1.6 L D-Dimer Sodium 135 L Chloride 97.4 L BUN 64 H Creatinine 3.5 H Glucose 114 H POC Glucose 117 H Hemoglobin A1c Calcium Phosphorus 4.90 H Iron Total Creatine Kinase CK-MB (CK-2) Albumin Qsnge-5-Wiygrwbxd PEP Interpretation HDL Cholesterol Urine Creatinine Urine Total Protein 08/22/18 08/22/18 08/23/18 14:48 21:36 05:09 WBC 4.3 L RBC 3.60 L Hgb 9.6 L Hct 29.6 L MCV 82 L MCH 27 L RDW 16.6 H Plt Count 134 L [place] % (Auto) Eos % (Auto) Seg Neuts % (Manual) 38.0 L Lymphocytes % (Manual) 51.0 H Monocytes % (Manual) 8.0 H Eosinophils % (Manual) Basophils % (Manual) Seg Neutrophils # Man 1.6 L D-Dimer Sodium Chloride BUN Creatinine Glucose POC Glucose 211 H 268 H Hemoglobin A1c Calcium Phosphorus Iron Total Creatine Kinase CK-MB (CK-2) Albumin Mkymc-6-Ugoranijv PEP Interpretation HDL Cholesterol Urine Creatinine Urine Total Protein 08/23/18 08/23/18 08/23/18 05:09 07:44 14:02 WBC RBC Hgb Hct MCV MCH RDW Plt Count [place] % (Auto) Eos % (Auto) Seg Neuts % (Manual) Lymphocytes % (Manual) Monocytes % (Manual) Eosinophils % (Manual) Basophils % (Manual) Seg Neutrophils # Man D-Dimer Sodium Chloride BUN 45 H Creatinine 2.6 H Glucose 174 H POC Glucose 240 H 161 H Hemoglobin A1c Calcium Phosphorus Iron Total Creatine Kinase CK-MB (CK-2) Albumin Rrldg-1-Kvygdscwp PEP Interpretation HDL Cholesterol Urine Creatinine Urine Total Protein 08/23/18 08/23/18 08/24/18 17:33 20:32 05:09 WBC RBC Hgb Hct MCV MCH RDW Plt Count [place] % (Auto) Eos % (Auto) Seg Neuts % (Manual) Lymphocytes % (Manual) Monocytes % (Manual) Eosinophils % (Manual) Basophils % (Manual) Seg Neutrophils # Sadi D-Dimer Sodium 135 L Chloride 97.4 L BUN 38 H Creatinine 2.3 H Glucose 183 H POC Glucose 217 H 208 H Hemoglobin A1c Calcium Phosphorus Iron Total Creatine Kinase CK-MB (CK-2) Albumin Efpyn-3-Tvppqhdxr PEP Interpretation HDL Cholesterol Urine Creatinine Urine Total Protein 08/24/18 08/24/18 08/24/18 07:49 11:32 16:44 WBC RBC Hgb Hct MCV MCH RDW Plt Count [place] % (Auto) Eos % (Auto) Seg Neuts % (Manual) Lymphocytes % (Manual) Monocytes % (Manual) Eosinophils % (Manual) Basophils % (Manual) Seg Neutrophils # Sadi D-Dimer Sodium Chloride BUN Creatinine Glucose POC Glucose 171 H 271 H 168 H Hemoglobin A1c Calcium Phosphorus Iron Total Creatine Kinase CK-MB (CK-2) Albumin Utlvb-4-Hsubmjreu PEP Interpretation HDL Cholesterol Urine Creatinine Urine Total Protein 08/24/18 08/25/18 08/25/18 20:54 04:43 04:43 WBC RBC 3.41 L Hgb 9.1 L Hct 28.0 L MCV 82 L MCH 27 L RDW 17.0 H Plt Count 133 L [place] % (Auto) Eos % (Auto) Seg Neuts % (Manual) Lymphocytes % (Manual) Monocytes % (Manual) 10.0 H Eosinophils % (Manual) Basophils % (Manual) Seg Neutrophils # Sadi D-Dimer Sodium 136 L Chloride BUN 44 H Creatinine 2.6 H Glucose 193 H POC Glucose 214 H Hemoglobin A1c Calcium Phosphorus Iron Total Creatine Kinase CK-MB (CK-2) Albumin Ojxmx-7-Nlntcrqpn PEP Interpretation HDL Cholesterol Urine Creatinine Urine Total Protein 08/25/18 08/25/18 08/25/18 08:04 13:43 16:39 WBC RBC Hgb Hct MCV MCH RDW Plt Count [place] % (Auto) Eos % (Auto) Seg Neuts % (Manual) Lymphocytes % (Manual) Monocytes % (Manual) Eosinophils % (Manual) Basophils % (Manual) Seg Neutrophils # Sadi D-Dimer Sodium Chloride BUN Creatinine Glucose POC Glucose 167 H 193 H 249 H Hemoglobin A1c Calcium Phosphorus Iron Total Creatine Kinase CK-MB (CK-2) Albumin Ivmlq-7-Tnfxdkqbt PEP Interpretation HDL Cholesterol Urine Creatinine Urine Total Protein 08/25/18 08/26/18 08/26/18 21:15 04:56 07:21 WBC RBC Hgb Hct MCV MCH RDW Plt Count [place] % (Auto) Eos % (Auto) Seg Neuts % (Manual) Lymphocytes % (Manual) Monocytes % (Manual) Eosinophils % (Manual) Basophils % (Manual) Seg Neutrophils # Man D-Dimer Sodium 133 L Chloride 96.3 L BUN 32 H Creatinine 2.1 H Glucose 186 H POC Glucose 176 H 183 H Hemoglobin A1c Calcium 8.3 L Phosphorus Iron Total Creatine Kinase CK-MB (CK-2) Albumin Kscfj-0-Kmjympnck PEP Interpretation HDL Cholesterol Urine Creatinine Urine Total Protein 08/26/18 08/26/18 08/26/18 14:34 16:34 21:07 WBC RBC Hgb Hct MCV MCH RDW Plt Count [place] % (Auto) Eos % (Auto) Seg Neuts % (Manual) Lymphocytes % (Manual) Monocytes % (Manual) Eosinophils % (Manual) Basophils % (Manual) Seg Neutrophils # Man D-Dimer Sodium Chloride BUN Creatinine Glucose POC Glucose 165 H 206 H 185 H Hemoglobin A1c Calcium Phosphorus Iron Total Creatine Kinase CK-MB (CK-2) Albumin Pqfvw-0-Aumemdufg PEP Interpretation HDL Cholesterol Urine Creatinine Urine Total Protein 08/27/18 08/27/18 08/27/18 07:34 08:23 16:31 WBC RBC Hgb Hct MCV MCH RDW Plt Count [place] % (Auto) Eos % (Auto) Seg Neuts % (Manual) Lymphocytes % (Manual) Monocytes % (Manual) Eosinophils % (Manual) Basophils % (Manual) Seg Neutrophils # Man D-Dimer Sodium 135 L Chloride 97.3 L BUN 28 H Creatinine 2.4 H Glucose 130 H POC Glucose 136 H 229 H Hemoglobin A1c Calcium 8.0 L Phosphorus Iron Total Creatine Kinase CK-MB (CK-2) Albumin Kpzvf-4-Fdgorcwen PEP Interpretation HDL Cholesterol Urine Creatinine Urine Total Protein 08/27/18 08/28/18 08/28/18 21:32 04:40 07:48 WBC RBC Hgb Hct MCV MCH RDW Plt Count [place] % (Auto) Eos % (Auto) Seg Neuts % (Manual) Lymphocytes % (Manual) Monocytes % (Manual) Eosinophils % (Manual) Basophils % (Manual) Seg Neutrophils # Man D-Dimer Sodium 135 L Chloride 97.9 L BUN 25 H Creatinine 2.2 H Glucose 118 H POC Glucose 142 H 120 H Hemoglobin A1c Calcium Phosphorus Iron Total Creatine Kinase CK-MB (CK-2) Albumin Plubq-8-Nfyxazivy PEP Interpretation HDL Cholesterol Urine Creatinine Urine Total Protein 08/28/18 08/28/18 08/29/18 17:11 20:52 04:29 WBC RBC Hgb Hct MCV MCH RDW Plt Count [place] % (Auto) Eos % (Auto) Seg Neuts % (Manual) Lymphocytes % (Manual) Monocytes % (Manual) Eosinophils % (Manual) Basophils % (Manual) Seg Neutrophils # Man D-Dimer Sodium 134 L Chloride 93.3 L BUN 36 H Creatinine 2.9 H Glucose 187 H POC Glucose 209 H 188 H Hemoglobin A1c Calcium Phosphorus Iron Total Creatine Kinase CK-MB (CK-2) Albumin Fsxra-0-Thwcrqoqv PEP Interpretation HDL Cholesterol Urine Creatinine Urine Total Protein 08/29/18 08/29/18 08/29/18 08:21 16:54 22:22 WBC RBC Hgb Hct MCV MCH RDW Plt Count [place] % (Auto) Eos % (Auto) Seg Neuts % (Manual) Lymphocytes % (Manual) Monocytes % (Manual) Eosinophils % (Manual) Basophils % (Manual) Seg Neutrophils # Man D-Dimer Sodium Chloride BUN Creatinine Glucose POC Glucose 144 H 277 H 240 H Hemoglobin A1c Calcium Phosphorus Iron Total Creatine Kinase CK-MB (CK-2) Albumin Ibivc-7-Rsdayltrh PEP Interpretation HDL Cholesterol Urine Creatinine Urine Total Protein 08/30/18 08/30/18 08/30/18 04:17 04:17 07:56 WBC RBC 3.64 L Hgb 9.8 L Hct 29.6 L MCV 81 L MCH 27 L RDW 16.8 H Plt Count [place] % (Auto) Eos % (Auto) Seg Neuts % (Manual) Lymphocytes % (Manual) Monocytes % (Manual) Eosinophils % (Manual) Basophils % (Manual) Seg Neutrophils # Man D-Dimer Sodium 133 L Chloride 96.4 L BUN 33 H Creatinine 2.9 H Glucose 142 H POC Glucose 134 H Hemoglobin A1c Calcium Phosphorus Iron Total Creatine Kinase CK-MB (CK-2) Albumin Dfiil-5-Hhlaxoldu PEP Interpretation HDL Cholesterol Urine Creatinine Urine Total Protein Allied health notes reviewed: nursing
[2018-08-30] MEDS: COREG PO SCH ×2 (17:02→22:38)
[2018-08-30] MEDS: VITAMIN D3 PO SCH (17:02)
[2018-08-30] MEDS: ROCEPHIN/NS 1 GM/50 ML 1 GM/50 ML BAG IV SCH (17:02)
[2018-08-30] MEDS: COLACE PO SCH ×2 (17:03→22:37)
[2018-08-30] MEDS: BABY ASPIRIN PO SCH (17:03)
[2018-08-30] MEDS: HEPARIN SUB-Q SCH ×2 (17:03→22:38)
[2018-08-30] MEDS: SODIUM CHLORIDE FLUSH SYRINGE 10 ML IV SCH ×2 (17:03→22:36)
[2018-08-30] MEDS: NEURONTIN PO SCH (22:38)
[2018-08-31] MEDS: APRESOLINE PO SCH ×2 (06:25→22:42)
[2018-08-31] MEDS: HumaLOG SUB-Q SCH ×4 (07:30→22:42)
[2018-08-31] MEDS: HumuLIN R SUB-Q SCH ×3 (07:30→16:54)
--- NOTE | 2018-08-31 09:47 | Progress Note ---
Assessment and Plan Stable cardiac status. Continue dialysis and other regimen. - Patient Problems (1) Acute kidney injury superimposed on CKD Current Visit: Yes Status: Acute (2) Acute heart failure with preserved ejection fraction Current Visit: Yes Status: Acute (3) Anasarca Current Visit: Yes Status: Acute (4) Chronic venous insufficiency Current Visit: Yes Status: Chronic (5) Essential hypertension Current Visit: Yes Status: Chronic (6) MARBELLA (obstructive sleep apnea) Current Visit: Yes Status: Chronic (7) Morbid obesity Current Visit: Yes Status: Chronic Subjective Date of service: 08/31/18 Principal diagnosis: Acute on CKD, Acute on chronic HFpEF, Anasarca, MARBELLA, HTN Interval history: He feels better overall. Objective Vital Signs Temp Pulse Resp BP Pulse Ox 08/31/18 07:51 97.9 F 72 18 129/61 96 08/31/18 06:25 69 111/56 08/31/18 06:11 97.8 F 69 20 111/56 97 08/31/18 04:30 76 08/31/18 00:54 98.5 F 69 20 125/62 95 08/31/18 00:35 65 08/30/18 22:40 97 08/30/18 22:38 72 119/60 08/30/18 22:37 72 119/60 08/30/18 20:20 77 08/30/18 19:53 98.0 F 72 20 119/60 91 08/30/18 17:04 97.5 F L 70 20 145/68 96 08/30/18 16:00 71 08/30/18 12:38 98.1 F 65 18 125/68 08/30/18 12:30 67 126/62 08/30/18 12:15 65 124/67 08/30/18 12:00 66 122/66 08/30/18 11:45 65 127/72 08/30/18 11:30 67 126/67 08/30/18 11:15 67 120/65 08/30/18 11:00 67 114/70 08/30/18 10:45 67 114/61 08/30/18 10:30 67 117/68 08/30/18 10:15 69 111/68 08/30/18 10:00 68 103/60 - Physical Examination General: No Apparent Distress HEENT: Positive: EOMI, Normocephaly, Mucus Membranes Moist Neck: Positive: neck supple, trachea midline Cardiac: Positive: Reg Rate and Rhythm, S1/S2 Lungs: Positive: clear to auscultation Neuro: Positive: Grossly Intact Abdomen: Positive: Soft, Active Bowel Sounds. Negative: Tender Skin: Positive: Other (changes of chronic venous stasis with dyspigmentation in both LE) Musculoskeletal: Normal Range of Motion Extremities: Present: +2 Edema (in both LE) - Imaging and Cardiology EKG: image reviewed (sinus rhythm at 76 bpm) Echo: report reviewed (2016 normal LV function.Positive bubble study PFO), other (08/17/2018 normal LV function and diastolic dysfunction mild to moderate LVH no significant regurgitations) - Allied health notes Allied health notes reviewed: nursing
[2018-08-31 10:25] LABS: Calcium 9.1 mg/dL (8.4-10.2)
[2018-08-31] MEDS: HEPARIN SUB-Q SCH ×2 (10:30→22:42)
[2018-08-31] MEDS: BABY ASPIRIN PO SCH (10:30)
[2018-08-31] MEDS: VITAMIN D3 PO SCH (10:30)
[2018-08-31] MEDS: COREG PO SCH ×2 (11:09→22:41)
[2018-08-31] MEDS: COLACE PO SCH ×2 (11:09→22:41)
[2018-08-31] MEDS: SODIUM CHLORIDE FLUSH SYRINGE 10 ML IV SCH ×2 (11:09→22:46)
[2018-08-31] MEDS ORDERED: NACL 0.9% 100 ML IV PRN (11:46)
--- NOTE | 2018-08-31 11:46 | Progress Note ---
Assessment and Plan Severe renal failure, likely ESRD, dialysis dependent: -s/p HD yesterday, no HD today. Eval for need daily. -First hemodialysis treatment was on 08/22/18. -Secondary GN workup was negative -Renal ultrasound on 08/16/18- Chronic medical renal disease. No Hydronephrosis. -No ACEI or ARB due to advanced renal failure -Renally dose all medications -Avoid Nephrotoxic agents -Strict I/O's monitoring -Will monitor for renal recovery Congestive Diastolic heart failure -Echo- LVEF is 55-60% -S/P IV Lasix -UF with HD -Cardiology onboard Anemia of chronic disease due to CKD: -On Epogen 10,000 units SQ every M,W,F -Monitor H/H Essential Hypertension: - Continue on current regimen - Adjust medications as needed Diabetes Mellitus type 2 on insulin: -On insulin as per primary team Patrick Fonseca MD [phone] Subjective Date of service: 08/31/18 Principal diagnosis: Acute on CKD, Acute on chronic HFpEF, Anasarca, MARBELLA, HTN Interval history: Tolerated HD yesterday. Objective - Exam Narrative Exam: GE: AAOX3, Obese HEENT: PERRLA Neck: Supple Chest: Coarse BS BL CVS: RRR Abd: Soft/Obese, BS+ Ext: 2-3 BLE edema Psyche: Appropriate mood - Vital Signs Vital signs: Vital Signs - 12hr 08/31/18 08/31/18 08/31/18 00:35 00:54 04:30 Temperature 98.5 F Pulse Rate 65 69 76 Respiratory 20 Rate Blood Pressure 125/62 O2 Sat by Pulse 95 Oximetry 08/31/18 08/31/18 08/31/18 06:11 06:25 07:51 Temperature 97.8 F 97.9 F Pulse Rate 69 69 72 Respiratory 20 18 Rate Blood Pressure 111/56 111/56 129/61 O2 Sat by Pulse 97 96 Oximetry 08/31/18 08/31/18 11:08 11:09 Temperature 98.0 F Pulse Rate 73 73 Respiratory 16 Rate Blood Pressure 134/60 134/64 O2 Sat by Pulse 94 Oximetry - Lab 08/30/18 04:17 08/31/18 09:06 Most recent lab results Calcium 9.1 mg/dL (8.4-10.2) 08/31/18 09:06 Phosphorus 3.90 mg/dL (2.5-4.5) 08/25/18 04:43 56.1 mg/dL (0.1-20.0) H 08/20/18 12:09 132 mmol/L 08/17/18 04:00 79 mg/dL (5-11.8) H 08/17/18 04:00 Medications & Allergies - Medications Allergies/Adverse Reactions: Allergies canagliflozin [From Invokana] Allergy (Verified 08/15/18 17:49) Unknown IV CONTRAST DYE Allergy (Uncoded 08/15/18 17:49) Unknown Home Medications: Home Medications Medication Instructions Recorded Confirmed Last Taken Type Acetaminophen [Acetaminophen ER] 650 mg PO Q8HR PRN 08/16/18 08/16/18 Unknown History Amlodipine Besylate/Benazepril 1 each PO QDAY 08/16/18 08/16/18 Unknown History [Lotrel 10-40 mg] AtorvaSTATin [Lipitor] 40 mg PO QHS 08/16/18 08/16/18 Unknown History Cholecalciferol (Vitamin D3) 5,000 unit PO DAILY 08/16/18 08/16/18 Unknown Hi story [Vitamin D3 5,000 UNIT] Doxylamine Succinate [Unisom] 25 mg PO QHS 08/16/18 08/16/18 Unknown History Gabapentin [Neurontin] 300 mg PO QHS 08/16/18 08/16/18 Unknown History Insulin Regular, Human [Humulin R 90 unit SQ BID 08/16/18 08/16/18 Unknown History U-500 Kwikpen] Loratadine [Claritin] 10 mg PO DAILY PRN 08/16/18 08/16/18 Unknown History Melatonin [Melatonin 3MG TAB] 3 mg PO QHS 08/16/18 08/16/18 Unknown History Niacin [Niacor] 500 mg PO DAILY 08/16/18 08/16/18 Unknown History Omeprazole 20 mg PO DAILY PRN 08/16/18 08/16/18 Unknown History Triamcinolone Acetonide [Nasacort 10.8 ml NS DAILY 08/16/18 08/16/18 Unknown History SPRAY] Active Medications: Generic Name Dose Route Start Last Admin Trade Name Freq PRN Reason Stop Dose Admin Acetaminophen 650 mg 08/16/18 03:07 08/21/18 21:55 Tylenol PO 650 mg Q4H PRN Administration Pain MILD(1-3)/Fever >100.5/FRAIRE Albuterol 2.5 mg 08/16/18 03:07 Proventil IH Q4HRT PRN Shortness Of Breath Aspirin 81 mg 08/16/18 10:00 08/31/18 10:30 Baby Aspirin PO 81 mg QDAY ARLENE Administration Atorvastatin Calcium 40 mg 08/16/18 22:00 08/30/18 22:39 Lipitor PO 40 mg QHS ARLENE Administration Carvedilol 6.25 mg 08/17/18 12:00 08/31/18 11:09 Coreg PO 6.25 mg BID ARLENE Administration Cholecalciferol 5,000 unit 08/16/18 10:00 08/31/18 10:30 Vitamin D3 PO 5,000 unit DAILY ARLENE Administration Dextrose 50 ml 08/16/18 03:13 D50w (25gm) Syringe IV PRN PRN Hypoglycemia Docusate Sodium 100 mg 08/16/18 10:00 08/31/18 11:09 Colace PO 100 mg BID ARLENE Administration Epoetin Keon 10,000 unit 08/18/18 13:00 08/30/18 12:35 Procrit SUB-Q 10,000 unit MOWEFR ARLENE Administration Gabapentin 300 mg 08/16/18 22:00 08/30/18 22:38 Neurontin PO 300 mg QHS ARLENE Administration Heparin Sodium (Porcine) 5,000 unit 08/16/18 10:00 08/31/18 10:30 Heparin SUB-Q 5,000 unit Q12HR ARLENE Administration Hydralazine HCl 50 mg 08/16/18 14:00 08/31/18 06:25 Apresoline PO 50 mg Q8HR ARLENE Administration Sodium Chloride 100 mls @ 999 mls/hr 08/28/18 09:53 Nacl 0.9% IV JANE PRN Hypotension Ceftriaxone Sodium 1 gm in 50 mls @ 100 mls/hr 08/28/18 20:00 08/30/18 17:02 Rocephin/Ns 1 Gm/50 Ml IV 100 mls/hr Q24HR ARLENE Administration Protocol Sodium Chloride 100 mls @ 999 mls/hr 08/30/18 11:32 Nacl 0.9% IV JANE PRN Hypotension Insulin Human Lispro 0 unit 08/16/18 07:30 08/30/18 22:39 Humalog SUB-Q 3 unit ACHS ARLENE Administration Protocol Insulin Human Regular 5 units 08/16/18 07:30 08/30/18 17:07 Humulin R SUB-Q 5 units AC ARLENE Administration Nitroglycerin 0.4 mg 08/16/18 03:07 Nitrostat SL .Q5MIN PRN Chest Pain Ondansetron HCl 4 mg 08/16/18 03:07 08/16/18 16:39 Zofran IV 4 mg Q8H PRN Administration Nausea And Vomiting Oxycodone/Acetaminophen 1 tab 08/16/18 03:07 08/23/18 22:06 Percocet 5/325 PO 1 tab Q6H PRN Administration Pain, Moderate (4-6) Sodium Chloride 10 ml 08/16/18 10:00 08/31/18 11:09 Sodium Chloride Flush Syringe 10 Ml IV 10 ml BID ARLENE Administration Sodium Chloride 10 ml 08/16/18 03:07 08/16/18 06:17 Sodium Chloride Flush Syringe 10 Ml IV 10 ml PRN PRN Administration LINE FLUSH
[2018-08-31] MEDS: ROCEPHIN/NS 1 GM/50 ML 1 GM/50 ML BAG IV SCH (11:56)
--- NOTE | 2018-08-31 13:58 | Progress Note ---
Assessment and Plan Assessment and plan: Patient is a 58-year-old male with history of hypertension, diabetes, HLD, CKD stage III who presents to [facility] ED with c/o bilateral lower extremity swelling and shortness of breath. Pt scrotum is swollen obstructing view of his penis. Currently patient is on 2L supplemental O2 with saturation of 94%. D-dimer slightly elevated at 463.24. CK-MB elevated at 5.0; troponin negative. 2D ECHO conclusions Global LV systolic function is normal, estimated estimated EF is 55- 60%; abnormal LV diastolic dysfunction, mild to moderate concentric LV hypertrophy, trace mr, tr, RVSP calculated at 57 mmHg, Acute heart failure with preserved EF. Continue present management. No ACEI or ARB due to advanced renal failure. CXR on 08/19/18 showed no pulmonary edema or pneumonia. Continue hemodialysis per nephrology. Acute on Chronic kidney disease, stage 3: Patient had Perm-catheter placed 08/22 and hemodialysis was initiated. Secondary GN workup was negative. Renal ultrasound on 08/16/18- Chronic medical renal disease. No Hydronephrosis. No ACEI or ARB due to advanced renal failure. Renally dose all medications. Avoid Nephrotoxic agents. Strict I/O's monitoring. Nephrology to determine long-term needs for hemodialysis. Nephrology states will need outpatient hemodialysis set-up, director of casework informed. Still monitoring for Renal Recovery Anasarca and scrotal edema. Elevated D-Dimer. 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 Morbidly obese HEENT: Normocephalic, atraumatic Neck: supple, no JVD Heart: S1 and S2 reg, no murmurs, rubs or gallop Lungs: Clear, no crackles, no wheeze Abd: soft, non tender, non distended, normal BS Ext: Bilateral leg edema less, no clubbing, no cyanosis, Neuro: Awake,alert, oriented x 3, moves all ext, non focal Psych:Normal mood - Constitutional Vitals: Temp Pulse Resp BP Pulse Ox 98.0 F 73 16 134/64 94 08/31/18 11:08 08/31/18 11:09 08/31/18 11:08 08/31/18 11:09 08/31/18 11:08 General appearance: Present: no acute distress, obese Results - Labs CBC & Chem 7: 08/30/18 04:17 08/31/18 09:06 Labs: Laboratory Last Values WBC 6.8 K/mm3 (4.5-11.0) 08/30/18 04:17 RBC 3.64 M/mm3 (3.65-5.03) L 08/30/18 04:17 Hgb 9.8 gm/dl (11.8-15.2) L 08/30/18 04:17 Hct 29.6 % (35.5-45.6) L 08/30/18 04:17 MCV 81 fl (84-94) L 08/30/18 04:17 MCH 27 pg (28-32) L 08/30/18 04:17 MCHC 33 % (32-34) 08/30/18 04:17 RDW 16.8 % (13.2-15.2) H 08/30/18 04:17 Plt Count 158 K/mm3 (140-440) 08/30/18 04:17 Lymph % (Auto) 26.6 % (13.4-35.0) 08/17/18 07:30 [place] % (Auto) [employer] 08/25/18 04:43 Eos % (Auto) 6.6 % (0.0-4.3) H 08/17/18 07:30 Baso % (Auto) 1.1 % (0.0-1.8) 08/17/18 07:30 Lymph # 1.3 K/mm3 (1.2-5.4) 08/17/18 07:30 [place] # 0.7 K/mm3 (0.0-0.8) 08/17/18 07:30 Eos # 0.3 K/mm3 (0.0-0.4) 08/17/18 07:30 Baso # 0.1 K/mm3 (0.0-0.1) 08/17/18 07:30 Add Manual Diff Complete 08/25/18 04:43 Total Counted 100 08/25/18 04:43 Seg Neutrophils % 51.7 % (40.0-70.0) 08/17/18 07:30 Seg Neuts % (Manual) 62.0 % (40.0-70.0) 08/25/18 04:43 0 % 08/25/18 04:43 23.0 % (13.4-35.0) 08/25/18 04:43 Reactive Lymphs % (Man) 0 % 08/25/18 04:43 10.0 % (0.0-7.3) H 08/25/18 04:43 4.0 % (0.0-4.3) 08/25/18 04:43 1.0 % (0.0-1.8) 08/25/18 04:43 0 % 08/25/18 04:43 0 % 08/25/18 04:43 0 % 08/25/18 04:43 0 % 08/25/18 04:43 Nucleated RBC % Not Reportable 08/25/18 04:43 Seg Neutrophils # 2.6 K/mm3 (1.8-7.7) 08/17/18 07:30 Seg Neutrophils # Man 3.3 K/mm3 (1.8-7.7) 08/25/18 04:43 Band Neutrophils # 0.0 K/mm3 08/25/18 04:43 1.2 K/mm3 (1.2-5.4) 08/25/18 04:43 Abs React Lymphs (Man) 0.0 K/mm3 08/25/18 04:43 0.5 K/mm3 (0.0-0.8) 08/25/18 04:43 0.2 K/mm3 (0.0-0.4) 08/25/18 04:43 0.1 K/mm3 (0.0-0.1) 08/25/18 04:43 0.0 K/mm3 08/25/18 04:43 0.0 K/mm3 08/25/18 04:43 0.0 K/mm3 08/25/18 04:43 Blast Cells # 0.0 K/mm3 08/25/18 04:43 WBC Morphology Not Reportable 08/25/18 04:43 Hypersegmented Neuts Not Reportable 08/25/18 04:43 Hyposegmented Neuts Not Reportable 08/25/18 04:43 Hypogranular Neuts Not Reportable 08/25/18 04:43 Not Reportable 08/25/18 04:43 Not Reportable 08/25/18 04:43 Not Reportable 08/25/18 04:43 Not Reportable 08/25/18 04:43 Not Reportable 08/25/18 04:43 Not Reportable 08/25/18 04:43 Consistent w auto 08/25/18 04:43 Not Reportable 08/25/18 04:43 Plt Clumps, EDTA Not Reportable 08/25/18 04:43 Rare 08/25/18 04:43 Not Reportable 08/25/18 04:43 Not Reportable 08/25/18 04:43 Plt Morphology Comment Not Reportable 08/25/18 04:43 RBC Morphology Not Reportable 08/25/18 04:43 Dimorphic RBCs Not Reportable 08/25/18 04:43 Not Reportable 08/25/18 04:43 Not Reportable 08/25/18 04:43 1+ 08/25/18 04:43 1+ 08/25/18 04:43 Not Reportable 08/25/18 04:43 Not Reportable 08/25/18 04:43 Not Reportable 08/25/18 04:43 Not Reportable 08/25/18 04:43 Not Reportable 08/25/18 04:43 Not Reportable 08/25/18 04:43 Not Reportable 08/25/18 04:43 Not Reportable 08/25/18 04:43 Not Reportable 08/25/18 04:43 Not Reportable 08/25/18 04:43 Not Reportable 08/25/18 04:43 Not Reportable 08/25/18 04:43 Not Reportable 08/25/18 04:43 Not Reportable 08/25/18 04:43 1+ 08/25/18 04:43 Acanthocytes (Spur) Not Reportable 08/25/18 04:43 Rouleaux Not Reportable 08/25/18 04:43 Not Reportable 08/25/18 04:43 Not Reportable 08/25/18 04:43 Not Reportable 08/25/18 04:43 Not Reportable 08/25/18 04:43 Hem Pathologist Commnt No 08/25/18 04:43 463.24 ng/mlDDU (0-234) H 08/15/18 21:24 Sodium 130 mmol/L (137-145) L 08/31/18 09:06 Potassium 4.9 mmol/L (3.6-5.0) 08/31/18 09:06 Chloride 87.5 mmol/L (98-107) L 08/31/18 09:06 Carbon Dioxide 26 mmol/L (22-30) 08/31/18 09:06 21 mmol/L 08/31/18 09:06 BUN 47 mg/dL (9-20) H 08/31/18 09:06 3.5 mg/dL (0.8-1.5) H 08/31/18 09:06 Estimated GFR 18 ml/min 08/31/18 09:06 13 % 08/31/18 09:06 Glucose 214 mg/dL (75-100) H 08/31/18 09:06 POC Glucose 223 (70-105) H 08/31/18 11:13 7.4 % (4-6) H 08/16/18 03:37 Lactic Acid 0.70 mmol/L (0.7-2.0) 08/20/18 04:53 Calcium 9.1 mg/dL (8.4-10.2) 08/31/18 09:06 Phosphorus 3.90 mg/dL (2.5-4.5) 08/25/18 04:43 Iron 30 ug/dL (49-181) L 08/16/18 13:52 TIBC 352 mcg/dL (250-450) 08/16/18 13:52 78.2 ng/mL (13.0-400.0) 08/18/18 08:34 0.40 mg/dL (0.1-1.2) 08/15/18 18:54 AST 25 units/L (5-40) 08/15/18 18:54 ALT 15 units/L (7-56) 08/15/18 18:54 74 units/L (35-129) 08/15/18 18:54 340 units/L (55-170) H 08/15/18 21:24 CK-MB (CK-2) 5.0 ng/mL (0.0-4.0) H 08/15/18 21:24 CK-MB (CK-2) Rel Index 1.4 (0-4) 08/15/18 21:24 0.026 ng/mL (0.00-0.029) 08/15/18 21:24 NT-Pro-B Natriuret Pep 877.6 pg/mL (0-900) 08/17/18 11:13 6.1 g/dL (6.1-8.1) 08/17/18 11:13 6.7 g/dL (6.3-8.2) 08/15/18 18:54 2.9 g/dL (3.8-4.8) L 08/17/18 11:13 0.9 % 08/15/18 18:54 0.4 g/dL (0.2-0.3) H 08/17/18 11:13 0.7 g/dL (0.5-0.9) 08/17/18 11:13 0.5 g/dL (0.2-0.5) 08/17/18 11:13 1.1 g/dL (0.8-1.7) 08/17/18 11:13 Abnorm Protein Band 1 see below 08/17/18 11:13 PEP Interpretation see below H 08/17/18 11:13 Triglycerides 140 mg/dL (2-149) 08/16/18 03:37 Cholesterol 147 mg/dL (50-199) 08/16/18 03:37 88 mg/dL (50-130) 08/16/18 03:37 37 mg/dL (40-59) L 08/16/18 03:37 3.97 % 08/16/18 03:37 Straw (Yellow) 08/17/18 04:00 Clear (Clear) 08/17/18 04:00 7.0 (5.0-7.0) 08/17/18 04:00 Ur Specific Leopold 1.006 (1.003-1.030) 08/17/18 04:00 100 mg/dl mg/dL (Negative) 08/17/18 04:00 Neg mg/dL (Negative) 08/17/18 04:00 Neg mg/dL (Negative) 08/17/18 04:00 Neg (Negative) 08/17/18 04:00 Neg (Negative) 08/17/18 04:00 Neg (Negative) 08/17/18 04:00 < 2.0 mg/dL (<2.0) 08/17/18 04:00 Ur Leukocyte Esterase Neg (Negative) 08/17/18 04:00 < 1.0 /HPF (0.0-6.0) 08/17/18 04:00 2.0 /HPF (0.0-6.0) 08/17/18 04:00 U Epithel Cells (Auto) 1.0 /HPF (0-13.0) 08/15/18 18:47 1+ /HPF (Negative) 08/17/18 04:00 Few /HPF 08/15/18 18:47 None seen (None Seen) 08/17/18 04:00 Ur Random Creatinine See scanned report 08/17/18 10:40 U Random Total Protein See scanned report 08/17/18 10:40 800 ml 08/20/18 12:09 56.1 mg/dL (0.1-20.0) H 08/20/18 12:09 Height (in) 68.0 inches 08/20/18 12:09 Weight (lb) 348.8 lbs 08/20/18 12:09 6 08/20/18 12:09 Protein/Creatinin Ratio See scanned report 08/17/18 10:40 132 mmol/L 08/17/18 04:00 106 08/17/18 04:00 79 mg/dL (5-11.8) H 08/17/18 04:00 U Abnormal Prot Band 1 See scanned report 08/17/18 10:40 U Abnormal Prot Band 2 See scanned report 08/17/18 10:40 U Abnormal Prot Band 3 See scanned report 08/17/18 10:40 Immunofix Electrophor see below 08/17/18 11:13 JELANI Screen Negative (Negative) 08/17/18 11:13 Double Strand DNA Ab <1 IU/mL (<=4) 08/17/18 11:13 144 mg/dL (82-185) 08/17/18 11:13 23 mg/dL (15-53) 08/17/18 11:13 RPR Nonreactive (Nonreactive) 08/17/18 11:13 Hepatitis A IgM Ab Non-reactive (NonReactive) 08/17/18 11:13 Hep Bs Antigen Non-reactive (Negative) 08/17/18 11:13 Hep B Core IgM Ab Non-reactive (NonReactive) 08/17/18 11:13 Non-reactive (NonReactive) 08/17/18 11:13 HIV 1&2 Antibody Rapid Non react (Non React) 08/17/18 11:13 Non react (Non React) 08/17/18 11:13 Active Medications - Current Medications Current Medications: Generic Name Dose Route Start Last Admin Trade Name Freq PRN Reason Stop Dose Admin Acetaminophen 650 mg 08/16/18 03:07 08/21/18 21:55 Tylenol PO 650 mg Q4H PRN Administration Pain MILD(1-3)/Fever >100.5/FRAIRE Albuterol 2.5 mg 08/16/18 03:07 Proventil IH Q4HRT PRN Shortness Of Breath Aspirin 81 mg 08/16/18 10:00 08/31/18 10:30 Baby Aspirin PO 81 mg QDAY ARLENE Administration Atorvastatin Calcium 40 mg 08/16/18 22:00 08/30/18 22:39 Lipitor PO 40 mg QHS ARLENE Administration Carvedilol 6.25 mg 08/17/18 12:00 08/31/18 11:09 Coreg PO 6.25 mg BID ARLENE Administration Cholecalciferol 5,000 unit 08/16/18 10:00 08/31/18 10:30 Vitamin D3 PO 5,000 unit DAILY ARLENE Administration Dextrose 50 ml 08/16/18 03:13 D50w (25gm) Syringe IV PRN PRN Hypoglycemia Docusate Sodium 100 mg 08/16/18 10:00 08/31/18 11:09 Colace PO 100 mg BID ARLENE Administration Epoetin Keon 10,000 unit 08/18/18 13:00 08/30/18 12:35 Procrit SUB-Q 10,000 unit MOWEFR ARLENE Administration Gabapentin 300 mg 08/16/18 22:00 08/30/18 22:38 Neurontin PO 300 mg QHS ARLENE Administration Heparin Sodium (Porcine) 5,000 unit 08/16/18 10:00 08/31/18 10:30 Heparin SUB-Q 5,000 unit Q12HR ARLENE Administration Hydralazine HCl 50 mg 08/16/18 14:00 08/31/18 06:25 Apresoline PO 50 mg Q8HR ARLENE Administration Ceftriaxone Sodium 1 gm in 50 mls @ 100 mls/hr 08/28/18 20:00 08/31/18 11:56 Rocephin/Ns 1 Gm/50 Ml IV 100 mls/hr Q24HR ARLENE Administration Protocol Sodium Chloride 100 mls @ 999 mls/hr 08/31/18 11:46 Nacl 0.9% IV JANE PRN Hypotension Insulin Human Lispro 0 unit 08/16/18 07:30 08/31/18 11:54 Humalog SUB-Q 3 unit ACHS ARLENE Administration Protocol Insulin Human Regular 5 units 08/16/18 07:30 08/31/18 11:55 Humulin R SUB-Q 5 units AC ARLENE Administration Nitroglycerin 0.4 mg 08/16/18 03:07 Nitrostat SL .Q5MIN PRN Chest Pain Ondansetron HCl 4 mg 08/16/18 03:07 08/16/18 16:39 Zofran IV 4 mg Q8H PRN Administration Nausea And Vomiting Oxycodone/Acetaminophen 1 tab 08/16/18 03:07 08/23/18 22:06 Percocet 5/325 PO 1 tab Q6H PRN Administration Pain, Moderate (4-6) Sodium Chloride 10 ml 08/16/18 10:00 08/31/18 11:09 Sodium Chloride Flush Syringe 10 Ml IV 10 ml BID ARLENE Administration Sodium Chloride 10 ml 08/16/18 03:07 08/16/18 06:17 Sodium Chloride Flush Syringe 10 Ml IV 10 ml PRN PRN Administration LINE FLUSH Nutrition/Malnutrition Assess - Dietary Evaluation Nutrition/Malnutrition Findings: Nutrition Notes Start: 08/16/18 09:25 Freq: Status: Active Protocol: Document 08/19/18 14:48 GHASSAN (Rec: 08/19/18 14:54 GHASSAN [email or web address]) Nutrition Notes Initial or Follow up Brief Note Current Diagnosis CKD(stage I-IV),Diabetes Other Pertinent Diagnosis Fluid retention in scrotum and BLE edema, wounds on toe, heel and leg Current Diet Cardiac/consistent CHO Labs/Tests Na 134 BUN 55 Cr 4.4 Pertinent Medications Reviewed [place] Body Weight (kg) 0 Subjective/Other Information Pt reports good appetite; has been consuming 75-100% of meals. Nutrition Intervention Revisit per MD consult or patient Sign Off request:
--- NOTE | 2018-08-31 21:42 | Progress Note ---
Assessment and Plan Patient awake and resting on room air at this time. O2 sat 96%. No acute respiratory distress. Recommend to use O2 2L when he is not on BiPAP. Patient uses BIPAP at night . - Patient Problems (1) CHF (congestive heart failure) Current Visit: Yes Status: Acute Qualifiers: Heart failure type: diastolic Heart failure chronicity: acute Qualified Code(s): I50.31 - Acute diastolic (congestive) heart failure Plan to address problem: Management as per cardiology. (2) CKD (chronic kidney disease) Current Visit: Yes Status: Acute Qualifiers: Chronic kidney disease stage: stage 3 (moderate) Qualified Code(s): N18.3 - Chronic kidney disease, stage 3 (moderate) Plan to address problem: Patient is on hemodialysis. Management as per nephrology. (3) HANSEN (dyspnea on exertion) Current Visit: Yes Status: Acute Plan to address problem: Albuterol aerosol treatments q 6 hours prn for shortness of breath. O2 2 litres via nasal canula BIPAP during night time and PRN during day time for shortness of breath. Continue S/C Heparin. (4) Elevated d-dimer Current Visit: Yes Status: Acute Plan to address problem: Venous doppler studies reported negative for DVT. Perfusion lung scan reported low probabily for pulmonary emboli. Continue S/C heparin. (5) Essential hypertension Current Visit: Yes Status: Chronic Plan to address problem: Management as per primary care. (6) Morbid obesity Current Visit: Yes Status: Chronic Plan to address problem: Recommend to loose weight. Exercise and diet. (7) Sleep apnea with use of continuous positive airway pressure (CPAP) Current Visit: Yes Status: Acute Plan to address problem: Continue BIPAP as using at home. Subjective Date of service: 08/31/18 Principal diagnosis: CHF; CKD; HANSEN; Elevated d-dimer; Essential HTN; Morbid obesity; MARBELLA Interval history: Patient awake and resting on room air at this time. O2 sat 96%. No acute respiratory distress. Recommend to use O2 2L when he is not on BiPAP. Patient uses BIPAP at night . Objective Vital Signs - 12hr 08/31/18 08/31/18 08/31/18 11:08 11:09 17:02 Temperature 98.0 F 98.7 F Pulse Rate 73 73 68 Respiratory 16 18 Rate Blood Pressure 134/60 134/64 131/58 O2 Sat by Pulse 94 94 Oximetry 08/31/18 08/31/18 08/31/18 19:12 20:35 20:38 Temperature 98.0 F Pulse Rate 73 73 Respiratory 18 20 Rate Blood Pressure 118/59 O2 Sat by Pulse 96 Oximetry Constitutional: no acute distress, alert, other (Morbidly Obese middle aged CM) Eyes: non-icteric ENT: oropharynx moist, other (mallampati 4) Neck: supple, no JVD, other (large neck circumference) Effort: mildly labored Ascultation: Bilateral: diminished breath sounds, rhonchi (scant in bases) Percussion: Bilateral: not dull Cardiovascular: regular rate and rhythm Gastrointestinal: normoactive bowel sounds, soft, non-tender, other ( protuberant) Integumentary: cellulitis, other (Cellulitis and wounds in both lower legs.) Extremities: no cyanosis, pink and warm, pulses normal, edema (trace to 1+) Neurologic: normal mental status, non-focal exam, pupils equal and round, CN II- XII normal Psychiatric: mood appropriate, affect normal CBC and BMP: 08/30/18 04:17 08/31/18 09:06 ABG, PT/INR, D-dimer: PT/INR, D-dimer 463.24 ng/mlDDU (0-234) H 08/15/18 21:24 Abnormal lab findings: Abnormal Labs 08/15/18 08/15/18 08/15/18 18:02 18:54 18:54 WBC RBC 3.61 L Hgb 9.8 L Hct 30.1 L MCV MCH 27 L RDW 16.[address] [facility] % (Auto) 10.7 H Eos % (Auto) 5.9 H Seg Neuts % (Manual) Lymphocytes % (Manual) Monocytes % (Manual) Eosinophils % (Manual) Basophils % (Manual) Seg Neutrophils # Man D-Dimer Sodium Chloride 107.7 H BUN 25 H Creatinine 2.5 H Glucose 159 H POC Glucose 124 H Hemoglobin A1c Calcium Phosphorus Iron Total Creatine Kinase CK-MB (CK-2) Albumin 3.2 L Wdznx-1-Ozecwuhzr PEP Interpretation HDL Cholesterol Urine Creatinine Urine Total Protein 08/15/18 08/15/18 08/16/18 21:24 21:24 03:37 WBC RBC Hgb Hct MCV MCH RDW Plt Count [facility] % (Auto) Eos % (Auto) Seg Neuts % (Manual) Lymphocytes % (Manual) Monocytes % (Manual) Eosinophils % (Manual) Basophils % (Manual) Seg Neutrophils # Sadi D-Dimer 463.24 H Sodium Chloride BUN Creatinine Glucose POC Glucose Hemoglobin A1c 7.4 H Calcium Phosphorus Iron Total Creatine Kinase 340 H CK-MB (CK-2) 5.0 H Albumin Hpnlx-1-Zvwensgtg PEP Interpretation HDL Cholesterol Urine Creatinine Urine Total Protein 08/16/18 08/16/18 08/16/18 03:37 07:54 12:01 WBC RBC Hgb Hct MCV MCH RDW Plt Count [facility] % (Auto) Eos % (Auto) Seg Neuts % (Manual) Lymphocytes % (Manual) Monocytes % (Manual) Eosinophils % (Manual) Basophils % (Manual) Seg Neutrophils # Sadi D-Dimer Sodium Chloride BUN Creatinine Glucose POC Glucose 113 H 179 H Hemoglobin A1c Calcium Phosphorus Iron Total Creatine Kinase CK-MB (CK-2) Albumin Evvdf-2-Vmhpyochf PEP Interpretation HDL Cholesterol 37 L Urine Creatinine Urine Total Protein 08/16/18 08/16/18 08/16/18 13:52 17:44 21:21 WBC RBC Hgb Hct MCV MCH RDW Plt Count [facility] % (Auto) Eos % (Auto) Seg Neuts % (Manual) Lymphocytes % (Manual) Monocytes % (Manual) Eosinophils % (Manual) Basophils % (Manual) Seg Neutrophils # Sadi D-Dimer Sodium Chloride BUN Creatinine Glucose POC Glucose 221 H 165 H Hemoglobin A1c Calcium Phosphorus Iron 30 L Total Creatine Kinase CK-MB (CK-2) Albumin Exhdj-1-Vpsruasbe PEP Interpretation HDL Cholesterol Urine Creatinine Urine Total Protein 08/17/18 08/17/18 08/17/18 04:00 07:30 07:30 WBC RBC Hgb 10.3 L Hct 31.5 L MCV 82 L MCH 27 L RDW 16.[address] [facility] % (Auto) 14.0 H Eos % (Auto) 6.6 H Seg Neuts % (Manual) Lymphocytes % (Manual) Monocytes % (Manual) Eosinophils % (Manual) Basophils % (Manual) Seg Neutrophils # Sadi D-Dimer Sodium Chloride BUN 32 H Creatinine 2.9 H Glucose 180 H POC Glucose Hemoglobin A1c Calcium Phosphorus Iron Total Creatine Kinase CK-MB (CK-2) Albumin Clbrn-6-Drhhfnfwp PEP Interpretation HDL Cholesterol Urine Creatinine 22.4 H Urine Total Protein 79 H 08/17/18 08/17/18 08/17/18 07:34 11:13 12:17 WBC RBC Hgb Hct MCV MCH RDW Plt Count [facility] % (Auto) Eos % (Auto) Seg Neuts % (Manual) Lymphocytes % (Manual) Monocytes % (Manual) Eosinophils % (Manual) Basophils % (Manual) Seg Neutrophils # Man D-Dimer Sodium Chloride BUN Creatinine Glucose POC Glucose 169 H 207 H Hemoglobin A1c Calcium Phosphorus Iron Total Creatine Kinase CK-MB (CK-2) Albumin 2.9 L Atowj-7-Iuubgeluw 0.4 H PEP Interpretation see below H HDL Cholesterol Urine Creatinine Urine Total Protein 08/17/18 08/17/18 08/18/18 16:36 21:17 07:05 WBC RBC Hgb Hct MCV MCH RDW Plt Count [facility] % (Auto) Eos % (Auto) Seg Neuts % (Manual) Lymphocytes % (Manual) Monocytes % (Manual) Eosinophils % (Manual) Basophils % (Manual) Seg Neutrophils # Man D-Dimer Sodium 134 L Chloride 95.9 L BUN 43 H Creatinine 3.8 H Glucose 150 H POC Glucose 184 H 209 H Hemoglobin A1c Calcium Phosphorus Iron Total Creatine Kinase CK-MB (CK-2) Albumin Lycrz-2-Ijrxfwvfu PEP Interpretation HDL Cholesterol Urine Creatinine Urine Total Protein 08/18/18 08/18/18 08/18/18 07:53 08:34 11:53 WBC RBC Hgb 10.8 L Hct 33.8 L MCV MCH 27 L RDW 16.[address] [facility] % (Auto) Eos % (Auto) Seg Neuts % (Manual) Lymphocytes % (Manual) Monocytes % (Manual) Eosinophils % (Manual) Basophils % (Manual) Seg Neutrophils # Man D-Dimer Sodium Chloride BUN Creatinine Glucose POC Glucose 139 H 191 H Hemoglobin A1c Calcium Phosphorus Iron Total Creatine Kinase CK-MB (CK-2) Albumin Onddc-9-Exvnzuboa PEP Interpretation HDL Cholesterol Urine Creatinine Urine Total Protein 08/18/18 08/18/18 08/19/18 15:54 20:49 05:28 WBC RBC Hgb 9.7 L Hct 30.1 L MCV 82 L MCH 26 L RDW 16.6 H Plt Count [address] [facility] % (Auto) Eos % (Auto) Seg Neuts % (Manual) Lymphocytes % (Manual) Monocytes % (Manual) Eosinophils % (Manual) Basophils % (Manual) Seg Neutrophils # Sadi D-Dimer Sodium Chloride BUN Creatinine Glucose POC Glucose 150 H 138 H Hemoglobin A1c Calcium Phosphorus Iron Total Creatine Kinase CK-MB (CK-2) Albumin Iybqp-9-Hksbzxozi PEP Interpretation HDL Cholesterol Urine Creatinine Urine Total Protein 08/19/18 08/19/18 08/19/18 05:28 07:43 11:57 WBC RBC Hgb Hct MCV MCH RDW Plt Count [facility] % (Auto) Eos % (Auto) Seg Neuts % (Manual) Lymphocytes % (Manual) Monocytes % (Manual) Eosinophils % (Manual) Basophils % (Manual) Seg Neutrophils # Sadi D-Dimer Sodium 134 L Chloride 96.2 L BUN 55 H Creatinine 4.4 H Glucose 118 H POC Glucose 162 H 280 H Hemoglobin A1c Calcium Phosphorus Iron Total Creatine Kinase CK-MB (CK-2) Albumin Erggb-5-Uabjvcuaa PEP Interpretation HDL Cholesterol Urine Creatinine Urine Total Protein 08/19/18 08/19/18 08/20/18 15:41 21:44 04:53 WBC 3.5 L RBC 3.58 L Hgb 9.4 L Hct 29.5 L MCV 83 L MCH 26 L RDW 16.4 H Plt Count [address] [facility] % (Auto) Eos % (Auto) Seg Neuts % (Manual) Lymphocytes % (Manual) Monocytes % (Manual) 16.0 H Eosinophils % (Manual) Basophils % (Manual) 3.0 H Seg Neutrophils # Sadi 1.6 L D-Dimer Sodium Chloride BUN Creatinine Glucose POC Glucose 167 H 234 H Hemoglobin A1c Calcium Phosphorus Iron Total Creatine Kinase CK-MB (CK-2) Albumin Bgssz-5-Tuxczxamb PEP Interpretation HDL Cholesterol Urine Creatinine Urine Total Protein 08/20/18 08/20/18 08/20/18 04:53 08:13 12:09 WBC RBC Hgb Hct MCV MCH RDW Plt Count [facility] % (Auto) Eos % (Auto) Seg Neuts % (Manual) Lymphocytes % (Manual) Monocytes % (Manual) Eosinophils % (Manual) Basophils % (Manual) Seg Neutrophils # Sadi D-Dimer Sodium 136 L Chloride BUN 57 H Creatinine 3.3 H Glucose 136 H POC Glucose 124 H Hemoglobin A1c Calcium Phosphorus 5.50 H Iron Total Creatine Kinase CK-MB (CK-2) Albumin Sbtop-7-Qcqypihcr PEP Interpretation HDL Cholesterol Urine Creatinine 56.1 H Urine Total Protein 08/20/18 08/20/18 08/20/18 12:49 18:26 20:53 WBC RBC Hgb Hct MCV MCH RDW Plt Count [facility] % (Auto) Eos % (Auto) Seg Neuts % (Manual) Lymphocytes % (Manual) Monocytes % (Manual) Eosinophils % (Manual) Basophils % (Manual) Seg Neutrophils # Man D-Dimer Sodium Chloride BUN Creatinine Glucose POC Glucose 145 H 175 H 184 H Hemoglobin A1c Calcium Phosphorus Iron Total Creatine Kinase CK-MB (CK-2) Albumin Igwvp-4-Zdvotjjdu PEP Interpretation HDL Cholesterol Urine Creatinine Urine Total Protein 08/21/18 08/21/18 08/21/18 04:28 04:28 08:58 WBC 3.8 L RBC 3.42 L Hgb 9.2 L Hct 28.4 L MCV 83 L MCH 27 L RDW 16.4 H Plt Count [address] [facility] % (Auto) Eos % (Auto) Seg Neuts % (Manual) Lymphocytes % (Manual) Monocytes % (Manual) 15.0 H Eosinophils % (Manual) Basophils % (Manual) Seg Neutrophils # Man D-Dimer Sodium 134 L Chloride 96.5 L BUN 59 H Creatinine 3.4 H Glucose 190 H POC Glucose 159 H Hemoglobin A1c Calcium Phosphorus 5.10 H Iron Total Creatine Kinase CK-MB (CK-2) Albumin Mrhay-4-Hmpxtdvxy PEP Interpretation HDL Cholesterol Urine Creatinine Urine Total Protein 08/21/18 08/21/18 08/21/18 12:25 17:10 21:43 WBC RBC Hgb Hct MCV MCH RDW Plt Count [facility] % (Auto) Eos % (Auto) Seg Neuts % (Manual) Lymphocytes % (Manual) Monocytes % (Manual) Eosinophils % (Manual) Basophils % (Manual) Seg Neutrophils # Man D-Dimer Sodium Chloride BUN Creatinine Glucose POC Glucose 222 H 152 H 150 H Hemoglobin A1c Calcium Phosphorus Iron Total Creatine Kinase CK-MB (CK-2) Albumin Izjzx-6-Bbwglrife PEP Interpretation HDL Cholesterol Urine Creatinine Urine Total Protein 08/22/18 08/22/18 08/22/18 04:50 04:51 08:08 WBC 3.7 L RBC 3.37 L Hgb 9.0 L Hct 27.8 L MCV 83 L MCH 27 L RDW 16.9 H Pl[address] Count [address] [facility] % (Auto) Eos % (Auto) Seg Neuts % (Manual) Lymphocytes % (Manual) Monocytes % (Manual) 13.0 H Eosinophils % (Manual) 11.0 H Basophils % (Manual) Seg Neutrophils # Man 1.6 L D-Dimer Sodium 135 L Chloride 97.4 L BUN 64 H Creatinine 3.5 H Glucose 114 H POC Glucose 117 H Hemoglobin A1c Calcium Phosphorus 4.90 H Iron Total Creatine Kinase CK-MB (CK-2) Albumin Ljqeq-5-Qfcwmuahz PEP Interpretation HDL Cholesterol Urine Creatinine Urine Total Protein 08/22/18 08/22/18 08/23/18 14:48 21:36 05:09 WBC 4.3 L RBC 3.60 L Hgb 9.6 L Hct 29.6 L MCV 82 L MCH 27 L RDW 16.6 H Plt Count [address] [facility] % (Auto) Eos % (Auto) Seg Neuts % (Manual) 38.0 L Lymphocytes % (Manual) 51.0 H Monocytes % (Manual) 8.0 H Eosinophils % (Manual) Basophils % (Manual) Seg Neutrophils # Sadi 1.6 L D-Dimer Sodium Chloride BUN Creatinine Glucose POC Glucose 211 H 268 H Hemoglobin A1c Calcium Phosphorus Iron Total Creatine Kinase CK-MB (CK-2) Albumin Toufj-1-Ewvwfphrj PEP Interpretation HDL Cholesterol Urine Creatinine Urine Total Protein 08/23/18 08/23/18 08/23/18 05:09 07:44 14:02 WBC RBC Hgb Hct MCV MCH RDW Plt Count [facility] % (Auto) Eos % (Auto) Seg Neuts % (Manual) Lymphocytes % (Manual) Monocytes % (Manual) Eosinophils % (Manual) Basophils % (Manual) Seg Neutrophils # Sadi D-Dimer Sodium Chloride BUN 45 H Creatinine 2.6 H Glucose 174 H POC Glucose 240 H 161 H Hemoglobin A1c Calcium Phosphorus Iron Total Creatine Kinase CK-MB (CK-2) Albumin Daxvr-4-Abltsavzd PEP Interpretation HDL Cholesterol Urine Creatinine Urine Total Protein 08/23/18 08/23/18 08/24/18 17:33 20:32 05:09 WBC RBC Hgb Hct MCV MCH RDW Plt Count [facility] % (Auto) Eos % (Auto) Seg Neuts % (Manual) Lymphocytes % (Manual) Monocytes % (Manual) Eosinophils % (Manual) Basophils % (Manual) Seg Neutrophils # Man D-Dimer Sodium 135 L Chloride 97.4 L BUN 38 H Creatinine 2.3 H Glucose 183 H POC Glucose 217 H 208 H Hemoglobin A1c Calcium Phosphorus Iron Total Creatine Kinase CK-MB (CK-2) Albumin Llbph-7-Kewexooxc PEP Interpretation HDL Cholesterol Urine Creatinine Urine Total Protein 08/24/18 08/24/18 08/24/18 07:49 11:32 16:44 WBC RBC Hgb Hct MCV MCH RDW Plt Count [facility] % (Auto) Eos % (Auto) Seg Neuts % (Manual) Lymphocytes % (Manual) Monocytes % (Manual) Eosinophils % (Manual) Basophils % (Manual) Seg Neutrophils # Sadi D-Dimer Sodium Chloride BUN Creatinine Glucose POC Glucose 171 H 271 H 168 H Hemoglobin A1c Calcium Phosphorus Iron Total Creatine Kinase CK-MB (CK-2) Albumin Wolzi-8-Ooahhuoyj PEP Interpretation HDL Cholesterol Urine Creatinine Urine Total Protein 08/24/18 08/25/18 08/25/18 20:54 04:43 04:43 WBC RBC 3.41 L Hgb 9.1 L Hct 28.0 L MCV 82 L MCH 27 L RDW 17.0 H Plt Count [address] [facility] % (Auto) Eos % (Auto) Seg Neuts % (Manual) Lymphocytes % (Manual) Monocytes % (Manual) 10.0 H Eosinophils % (Manual) Basophils % (Manual) Seg Neutrophils # Sadi D-Dimer Sodium 136 L Chloride BUN 44 H Creatinine 2.6 H Glucose 193 H POC Glucose 214 H Hemoglobin A1c Calcium Phosphorus Iron Total Creatine Kinase CK-MB (CK-2) Albumin Hoaqv-6-Yxqauuklp PEP Interpretation HDL Cholesterol Urine Creatinine Urine Total Protein 08/25/18 08/25/18 08/25/18 08:04 13:43 16:39 WBC RBC Hgb Hct MCV MCH RDW Plt Count [facility] % (Auto) Eos % (Auto) Seg Neuts % (Manual) Lymphocytes % (Manual) Monocytes % (Manual) Eosinophils % (Manual) Basophils % (Manual) Seg Neutrophils # Sadi D-Dimer Sodium Chloride BUN Creatinine Glucose POC Glucose 167 H 193 H 249 H Hemoglobin A1c Calcium Phosphorus Iron Total Creatine Kinase CK-MB (CK-2) Albumin Vgkpy-6-Uamjpsfba PEP Interpretation HDL Cholesterol Urine Creatinine Urine Total Protein 08/25/18 08/26/18 08/26/18 21:15 04:56 07:21 WBC RBC Hgb Hct MCV MCH RDW Plt Count [facility] % (Auto) Eos % (Auto) Seg Neuts % (Manual) Lymphocytes % (Manual) Monocytes % (Manual) Eosinophils % (Manual) Basophils % (Manual) Seg Neutrophils # Man D-Dimer Sodium 133 L Chloride 96.3 L BUN 32 H Creatinine 2.1 H Glucose 186 H POC Glucose 176 H 183 H Hemoglobin A1c Calcium 8.3 L Phosphorus Iron Total Creatine Kinase CK-MB (CK-2) Albumin Hrnqg-2-Lvxldszkt PEP Interpretation HDL Cholesterol Urine Creatinine Urine Total Protein 08/26/18 08/26/18 08/26/18 14:34 16:34 21:07 WBC RBC Hgb Hct MCV MCH RDW Plt Count [facility] % (Auto) Eos % (Auto) Seg Neuts % (Manual) Lymphocytes % (Manual) Monocytes % (Manual) Eosinophils % (Manual) Basophils % (Manual) Seg Neutrophils # Man D-Dimer Sodium Chloride BUN Creatinine Glucose POC Glucose 165 H 206 H 185 H Hemoglobin A1c Calcium Phosphorus Iron Total Creatine Kinase CK-MB (CK-2) Albumin Pjbay-7-Wijzxkifb PEP Interpretation HDL Cholesterol Urine Creatinine Urine Total Protein 08/27/18 08/27/18 08/27/18 07:34 08:23 16:31 WBC RBC Hgb Hct MCV MCH RDW Plt Count [facility] % (Auto) Eos % (Auto) Seg Neuts % (Manual) Lymphocytes % (Manual) Monocytes % (Manual) Eosinophils % (Manual) Basophils % (Manual) Seg Neutrophils # Man D-Dimer Sodium 135 L Chloride 97.3 L BUN 28 H Creatinine 2.4 H Glucose 130 H POC Glucose 136 H 229 H Hemoglobin A1c Calcium 8.0 L Phosphorus Iron Total Creatine Kinase CK-MB (CK-2) Albumin Baaam-1-Awapwfvpr PEP Interpretation HDL Cholesterol Urine Creatinine Urine Total Protein 08/27/18 08/28/18 08/28/18 21:32 04:40 07:48 WBC RBC Hgb Hct MCV MCH RDW Plt Count [facility] % (Auto) Eos % (Auto) Seg Neuts % (Manual) Lymphocytes % (Manual) Monocytes % (Manual) Eosinophils % (Manual) Basophils % (Manual) Seg Neutrophils # Man D-Dimer Sodium 135 L Chloride 97.9 L BUN 25 H Creatinine 2.2 H Glucose 118 H POC Glucose 142 H 120 H Hemoglobin A1c Calcium Phosphorus Iron Total Creatine Kinase CK-MB (CK-2) Albumin Xdtfu-2-Kulozctyf PEP Interpretation HDL Cholesterol Urine Creatinine Urine Total Protein 08/28/18 08/28/18 08/29/18 17:11 20:52 04:29 WBC RBC Hgb Hct MCV MCH RDW Plt Count [facility] % (Auto) Eos % (Auto) Seg Neuts % (Manual) Lymphocytes % (Manual) Monocytes % (Manual) Eosinophils % (Manual) Basophils % (Manual) Seg Neutrophils # Sadi D-Dimer Sodium 134 L Chloride 93.3 L BUN 36 H Creatinine 2.9 H Glucose 187 H POC Glucose 209 H 188 H Hemoglobin A1c Calcium Phosphorus Iron Total Creatine Kinase CK-MB (CK-2) Albumin Lblbk-3-Gcrzjicea PEP Interpretation HDL Cholesterol Urine Creatinine Urine Total Protein 08/29/18 08/29/18 08/29/18 08:21 16:54 22:22 WBC RBC Hgb Hct MCV MCH RDW Plt Count [facility] % (Auto) Eos % (Auto) Seg Neuts % (Manual) Lymphocytes % (Manual) Monocytes % (Manual) Eosinophils % (Manual) Basophils % (Manual) Seg Neutrophils # Sadi D-Dimer Sodium Chloride BUN Creatinine Glucose POC Glucose 144 H 277 H 240 H Hemoglobin A1c Calcium Phosphorus Iron Total Creatine Kinase CK-MB (CK-2) Albumin Vptpt-9-Mfbolldte PEP Interpretation HDL Cholesterol Urine Creatinine Urine Total Protein 08/30/18 08/30/18 08/30/18 04:17 04:17 07:56 WBC RBC 3.64 L Hgb 9.8 L Hct 29.6 L MCV 81 L MCH 27 L RDW 16.[address] [facility] % (Auto) Eos % (Auto) Seg Neuts % (Manual) Lymphocytes % (Manual) Monocytes % (Manual) Eosinophils % (Manual) Basophils % (Manual) Seg Neutrophils # Sadi D-Dimer Sodium 133 L Chloride 96.4 L BUN 33 H Creatinine 2.9 H Glucose 142 H POC Glucose 134 H Hemoglobin A1c Calcium Phosphorus Iron Total Creatine Kinase CK-MB (CK-2) Albumin Iwqis-6-Mseiubeje PEP Interpretation HDL Cholesterol Urine Creatinine Urine Total Protein 08/30/18 08/30/18 08/31/18 17:11 20:58 07:57 WBC RBC Hgb Hct MCV MCH RDW Plt Count [facility] % (Auto) Eos % (Auto) Seg Neuts % (Manual) Lymphocytes % (Manual) Monocytes % (Manual) Eosinophils % (Manual) Basophils % (Manual) Seg Neutrophils # Sadi D-Dimer Sodium Chloride BUN Creatinine Glucose POC Glucose 223 H 238 H 143 H Hemoglobin A1c Calcium Phosphorus Iron Total Creatine Kinase CK-MB (CK-2) Albumin Qgggz-0-Hqhpcpraf PEP Interpretation HDL Cholesterol Urine Creatinine Urine Total Protein 08/31/18 08/31/1819 09:06 11:13 16:45 WBC RBC Hgb Hct MCV MCH RDW Plt Count [facility] % (Auto) Eos % (Auto) Seg Neuts % (Manual) Lymphocytes % (Manual) Monocytes % (Manual) Eosinophils % (Manual) Basophils % (Manual) Seg Neutrophils # Man D-Dimer Sodium 130 L Chloride 87.5 L BUN 47 H Creatinine 3.5 H Glucose 214 H POC Glucose 223 H 320 H Hemoglobin A1c Calcium Phosphorus Iron Total Creatine Kinase CK-MB (CK-2) Albumin Lppfx-3-Qamfqoptc PEP Interpretation HDL Cholesterol Urine Creatinine Urine Total Protein Allied health notes reviewed: nursing
[2018-08-31] MEDS: NEURONTIN PO SCH (22:41)
[2018-09-01 06:41] LABS: Calcium 9.2 mg/dL (8.4-10.2)
[2018-09-01] MEDS: HumuLIN R SUB-Q SCH ×3 (08:16→18:22)
--- NOTE | 2018-09-01 08:56 | Progress Note ---
Assessment and Plan Severe renal failure, likely ESRD, dialysis dependent: -HD today for clearance and volume removal - ready to be discharged from standpoint when outpatient dialysis placement is setup -First hemodialysis treatment was on 08/22/18. -Secondary GN workup was negative -Renal ultrasound on 08/16/18- Chronic medical renal disease. No Hydronephrosis. -No ACEI or ARB due to advanced renal failure -Renally dose all medications -Avoid Nephrotoxic agents -Strict I/O's monitoring Congestive Diastolic heart failure -Echo- LVEF is 55-60% -S/P IV Lasix -UF with HD -Cardiology onboard Anemia of chronic disease due to CKD: -On Epogen 10,000 units SQ every M,W,F -Monitor H/H Essential Hypertension: - Continue on current regimen - Adjust medications as needed Diabetes Mellitus type 2 on insulin: -On insulin as per primary team Subjective Date of service: 09/01/18 Principal diagnosis: CHF; CKD; HANSEN; Elevated d-dimer; Essential HTN; Morbid obesity; MARBELLA Interval history: seen during HD, tolerating Objective - Vital Signs Vital signs: Vital Signs - 12hr 08/31/18 09/01/18 09/01/18 23:42 04:05 08:05 Temperature 98.0 F 98.0 F 98.3 F Pulse Rate 65 74 62 Respiratory 18 20 18 Rate Blood Pressure 132/61 119/59 117/54 O2 Sat by Pulse 95 96 95 Oximetry - General Appearance General appearance: well-developed, well-nourished, obese EENT: ATNC, PERRL, mucous membranes moist Neck: no JVD, no carotid bruit Respiratory: Present: Clear to Ascultation. Absent: Rales, Ronchi Cardiology: regular, S1S2 Gastrointestinal: normoactive bowel sounds, no tenderness, no distended Integumentary: no rash, warm and dry Neurologic: no focal deficit, no asterixis, alert and oriented x3 Musculoskeletal: other (1-2+ pitting edema in BLE) Psychiatric: mood/affect appropriate, cooperative - Lab 08/30/18 04:17 09/01/18 05:52 Most recent lab results Calcium 9.2 mg/dL (8.4-10.2) 09/01/18 05:52 Phosphorus 3.90 mg/dL (2.5-4.5) 08/25/18 04:43 56.1 mg/dL (0.1-20.0) H 08/20/18 12:09 132 mmol/L 08/17/18 04:00 79 mg/dL (5-11.8) H 08/17/18 04:00 Medications & Allergies - Medications Allergies/Adverse Reactions: Allergies canagliflozin [From Invokana] Allergy (Verified 08/15/18 17:49) Unknown IV CONTRAST DYE Allergy (Uncoded 08/15/18 17:49) Unknown Home Medications: Home Medications Medication Instructions Recorded Confirmed Last Taken Type Acetaminophen [Acetaminophen ER] 650 mg PO Q8HR PRN 08/16/18 08/16/18 Unknown History Amlodipine Besylate/Benazepril 1 each PO QDAY 08/16/18 08/16/18 Unknown History [Lotrel 10-40 mg] AtorvaSTATin [Lipitor] 40 mg PO QHS 08/16/18 08/16/18 Unknown History Cholecalciferol (Vitamin D3) 5,000 unit PO DAILY 08/16/18 08/16/18 Unknown History [Vitamin D3 5,000 UNIT] Doxylamine Succinate [Unisom] 25 mg PO QHS 08/16/18 08/16/18 Unknown History Gabapentin [Neurontin] 300 mg PO QHS 08/16/18 08/16/18 Unknown History Insulin Regular, Human [Humulin R 90 unit SQ BID 08/16/18 08/16/18 Unknown His tory U-500 Kwikpen] Loratadine [Claritin] 10 mg PO DAILY PRN 08/16/18 08/16/18 Unknown History Melatonin [Melatonin 3MG TAB] 3 mg PO QHS 08/16/18 08/16/18 Unknown History Niacin [Niacor] 500 mg PO DAILY 08/16/18 08/16/18 Unknown History Omeprazole 20 mg PO DAILY PRN 08/16/18 08/16/18 Unknown History Triamcinolone Acetonide [Nasacort 10.8 ml NS DAILY 08/16/18 08/16/18 Unknown History SPRAY] Active Medications: Generic Name Dose Route Start Last Admin Trade Name Freq PRN Reason Stop Dose Admin Acetaminophen 650 mg 08/16/18 03:07 08/21/18 21:55 Tylenol PO 650 mg Q4H PRN Administration Pain MILD(1-3)/Fever >100.5/FRAIRE Albuterol 2.5 mg 08/16/18 03:07 Proventil IH Q4HRT PRN Shortness Of Breath Aspirin 81 mg 08/16/18 10:00 08/31/18 10:30 Baby Aspirin PO 81 mg QDAY ARLENE Administration Atorvastatin Calcium 40 mg 08/16/18 22:00 08/31/18 22:41 Lipitor PO 40 mg QHS ARLENE Administration Carvedilol 6.25 mg 08/17/18 12:00 08/31/18 22:41 Coreg PO 6.25 mg BID ARLENE Administration Cholecalciferol 5,000 unit 08/16/18 10:00 08/31/18 10:30 Vitamin D3 PO 5,000 unit DAILY ARLENE Administration Dextrose 50 ml 08/16/18 03:13 D50w (25gm) Syringe IV PRN PRN Hypoglycemia Docusate Sodium 100 mg 08/16/18 10:00 08/31/18 22:41 Colace PO 100 mg BID ARLENE Administration Epoetin [place] 10,000 unit 08/18/18 13:00 08/30/18 12:35 Procrit SUB-Q 10,000 unit MOWEFR ARLENE Administration Gabapentin 300 mg 08/16/18 22:00 08/31/18 22:41 Neurontin PO 300 mg QHS ARLENE Administration Heparin Sodium (Porcine) 5,000 unit 08/16/18 10:00 08/31/18 22:42 Heparin SUB-Q 5,000 unit Q12HR ARLENE Administration Hydralazine HCl 50 mg 08/16/18 14:00 08/31/18 22:42 Apresoline PO 50 mg Q8HR ARLENE Administration Ceftriaxone Sodium 1 gm in 50 mls @ 100 mls/hr 08/28/18 20:00 08/31/18 11:56 Rocephin/Ns 1 Gm/50 Ml IV 100 mls/hr Q24HR ARLENE Administration Protocol Sodium Chloride 100 mls @ 999 mls/hr 08/31/18 11:46 Nacl 0.9% IV JANE PRN Hypotension Insulin Human Lispro 0 unit 08/16/18 07:30 08/31/18 22:42 Humalog SUB-Q 2 unit ACHS ARLENE Administration Protocol Insulin Human Regular 5 units 08/16/18 07:30 09/01/18 08:16 Humulin R SUB-Q 5 units AC ARLENE Administration Nitroglycerin 0.4 mg 08/16/18 03:07 Nitrostat SL .Q5MIN PRN Chest Pain Ondansetron HCl 4 mg 08/16/18 03:07 08/16/18 16:39 Zofran IV 4 mg Q8H PRN Administration Nausea And Vomiting Oxycodone/Acetaminophen 1 tab 08/16/18 03:07 08/23/18 22:06 Percocet 5/325 PO 1 tab Q6H PRN Administration Pain, Moderate (4-6) Sodium Chloride 10 ml 08/16/18 10:00 08/31/18 22:46 Sodium Chloride Flush Syringe 10 Ml IV 10 ml BID ARLENE Administration Sodium Chloride 10 ml 08/16/18 03:07 08/16/18 06:17 Sodium Chloride Flush Syringe 10 Ml IV 10 ml PRN PRN Administration LINE FLUSH
--- NOTE | 2018-09-01 10:52 | Progress Note ---
Assessment and Plan Assessment and plan: Patient is a 58-year-old male with history of hypertension, diabetes, HLD, CKD stage III who presents to [facility] ED with c/o bilateral lower extremity swelling and shortness of breath. Pt scrotum is swollen obstructing view of his penis. Currently patient is on 2L supplemental O2 with saturation of 94%. D-dimer slightly elevated at 463.24. CK-MB elevated at 5.0; troponin negative. 2D ECHO conclusions Global LV systolic function is normal, estimated estimated EF is 55- 60%; abnormal LV diastolic dysfunction, mild to moderate concentric LV hypertrophy, trace mr, tr, RVSP calculated at 57 mmHg. He is idagnosed with acute on CKD, initiated on dialysis 08/22/18. Also acute diastolic CHF that has improved with dialysis. 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 He is medically stable, awaiting arrangement for dialysis. He was planning to move to [place] so case management looking for dialysis center in [place]. Acute heart failure with preserved EF. Continue present management. No ACEI or ARB due to advanced renal failure. Continue hemodialysis per nephrology. Acute on Chronic kidney disease, stage 3: Patient had Perm-catheter placed 08/22 and hemodialysis was initiated. Secondary GN workup was negative. Renal ultrasound on 08/16/18- Chronic medical renal disease. No Hydronephrosis. No ACEI or ARB due to advanced renal failure. Renally dose all medications. Avoid Nephrotoxic agents. Strict I/O's monitoring. Nephrology to determine long-term needs for hemodialysis. Nephrology states will need outpatient hemodialysis set-up [place]. 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 Still monitoring for Renal Recovery Anasarca and scrotal edema. Elevated D-Dimer. V/Q scan negative Hypertensive urgency: iv antihypertensives as needed, low salt diet DM type 2; ada and ssi HLD: treat with statins Malnutrition mild to moderate: counseling done, consulted Rehabilitation Aide Right toe pressure ulcer, poa, at least stage 3, heel ulcers bilateral also: see admission photos, local wound care done, continue Wound care Morbid obese, BMI 49: counseled on lifestyle modification and weight reduction Full code status History Interval history: Feels better Less swelling No shortness of breath Hospitalist Physical - Physical exam Narrative exam: Gen: Not in acute distress,Sitting up. Morbidly obese HEENT: Normocephalic, atraumatic Neck: supple, no JVD Heart: S1 and S2 reg, no murmurs, rubs or gallop Lungs: Clear, no crackles, no wheeze Abd: soft, non tender, non distended, normal BS Ext: Bilateral leg edema less, no clubbing, no cyanosis, Neuro: Awake,alert, oriented x 3, moves all ext, non focal Psych:Normal mood - Constitutional Vitals: Temp Pulse Resp BP Pulse Ox 98.3 F 82 18 130/67 95 09/01/18 08:05 09/01/18 10:15 09/01/18 08:05 09/01/18 10:15 09/01/18 08:05 General appearance: Present: no acute distress, obese Results - Labs CBC & Chem 7: 08/30/18 04:17 09/01/18 05:52 Labs: Laboratory Last Values WBC 6.8 K/mm3 (4.5-11.0) 08/30/18 04:17 RBC 3.64 M/mm3 (3.65-5.03) L 08/30/18 04:17 Hgb 9.8 gm/dl (11.8-15.2) L 08/30/18 04:17 Hct 29.6 % (35.5-45.6) L 08/30/18 04:17 MCV 81 fl (84-94) L 08/30/18 04:17 MCH 27 pg (28-32) L 08/30/18 04:17 MCHC 33 % (32-34) 08/30/18 04:17 RDW 16.8 % (13.2-15.2) H 08/30/18 04:17 Plt Count 158 K/mm3 (140-440) 08/30/18 04:17 Lymph % (Auto) 26.6 % (13.4-35.0) 08/17/18 07:30 [place] % (Auto) Doughnut Maker 08/25/18 04:43 Eos % (Auto) 6.6 % (0.0-4.3) H 08/17/18 07:30 Baso % (Auto) 1.1 % (0.0-1.8) 08/17/18 07:30 Lymph # 1.3 K/mm3 (1.2-5.4) 08/17/18 07:30 [place] # 0.7 K/mm3 (0.0-0.8) 08/17/18 07:30 Eos # 0.3 K/mm3 (0.0-0.4) 08/17/18 07:30 Baso # 0.1 K/mm3 (0.0-0.1) 08/17/18 07:30 Add Manual Diff Complete 08/25/18 04:43 Total Counted 100 08/25/18 04:43 Seg Neutrophils % 51.7 % (40.0-70.0) 08/17/18 07:30 Seg Neuts % (Manual) 62.0 % (40.0-70.0) 08/25/18 04:43 0 % 08/25/18 04:43 23.0 % (13.4-35.0) 08/25/18 04:43 Reactive Lymphs % (Man) 0 % 08/25/18 04:43 10.0 % (0.0-7.3) H 08/25/18 04:43 4.0 % (0.0-4.3) 08/25/18 04:43 1.0 % (0.0-1.8) 08/25/18 04:43 0 % 08/25/18 04:43 0 % 08/25/18 04:43 0 % 08/25/18 04:43 0 % 08/25/18 04:43 Nucleated RBC % Not Reportable 08/25/18 04:43 Seg Neutrophils # 2.6 K/mm3 (1.8-7.7) 08/17/18 07:30 Seg Neutrophils # Man 3.3 K/mm3 (1.8-7.7) 08/25/18 04:43 Band Neutrophils # 0.0 K/mm3 08/25/18 04:43 1.2 K/mm3 (1.2-5.4) 08/25/18 04:43 Abs React Lymphs (Man) 0.0 K/mm3 08/25/18 04:43 0.5 K/mm3 (0.0-0.8) 08/25/18 04:43 0.2 K/mm3 (0.0-0.4) 08/25/18 04:43 0.1 K/mm3 (0.0-0.1) 08/25/18 04:43 0.0 K/mm3 08/25/18 04:43 0.0 K/mm3 08/25/18 04:43 0.0 K/mm3 08/25/18 04:43 Blast Cells # 0.0 K/mm3 08/25/18 04:43 WBC Morphology Not Reportable 08/25/18 04:43 Hypersegmented Neuts Not Reportable 08/25/18 04:43 Hyposegmented Neuts Not Reportable 08/25/18 04:43 Hypogranular Neuts Not Reportable 08/25/18 04:43 Not Reportable 08/25/18 04:43 Not Reportable 08/25/18 04:43 Not Reportable 08/25/18 04:43 Not Reportable 08/25/18 04:43 Not Reportable 08/25/18 04:43 Not Reportable 08/25/18 04:43 Consistent w auto 08/25/18 04:43 Not Reportable 08/25/18 04:43 Plt Clumps, EDTA Not Reportable 08/25/18 04:43 Rare 08/25/18 04:43 Not Reportable 08/25/18 04:43 Not Reportable 08/25/18 04:43 Plt Morphology Comment Not Reportable 08/25/18 04:43 RBC Morphology Not Reportable 08/25/18 04:43 Dimorphic RBCs Not Reportable 08/25/18 04:43 Not Reportable 08/25/18 04:43 Not Reportable 08/25/18 04:43 1+ 08/25/18 04:43 1+ 08/25/18 04:43 Not Reportable 08/25/18 04:43 Not Reportable 08/25/18 04:43 Not Reportable 08/25/18 04:43 Not Reportable 08/25/18 04:43 Not Reportable 08/25/18 04:43 Not Reportable 08/25/18 04:43 Not Reportable 08/25/18 04:43 Not Reportable 08/25/18 04:43 Not Reportable 08/25/18 04:43 Not Reportable 08/25/18 04:43 Not Reportable 08/25/18 04:43 Not Reportable 08/25/18 04:43 Not Reportable 08/25/18 04:43 Not Reportable 08/25/18 04:43 1+ 08/25/18 04:43 Acanthocytes (Spur) Not Reportable 08/25/18 04:43 Rouleaux Not Reportable 08/25/18 04:43 Not Reportable 08/25/18 04:43 Not Reportable 08/25/18 04:43 Not Reportable 08/25/18 04:43 Not Reportable 08/25/18 04:43 Hem Pathologist Commnt No 08/25/18 04:43 463.24 ng/mlDDU (0-234) H 08/15/18 21:24 Sodium 129 mmol/L (137-145) L 09/01/18 05:52 Potassium 4.7 mmol/L (3.6-5.0) 09/01/18 05:52 Chloride 91.1 mmol/L (98-107) L 09/01/18 05:52 Carbon Dioxide 24 mmol/L (22-30) 09/01/18 05:52 19 mmol/L 09/01/18 05:52 BUN 57 mg/dL (9-20) H 09/01/18 05:52 3.5 mg/dL (0.8-1.5) H 09/01/18 05:52 Estimated GFR 18 ml/min 09/01/18 05:52 16 % 09/01/18 05:52 Glucose 138 mg/dL (75-100) H 09/01/18 05:52 POC Glucose 133 (70-105) H 09/01/18 07:25 7.4 % (4-6) H 08/16/18 03:37 Lactic Acid 0.70 mmol/L (0.7-2.0) 08/20/18 04:53 Calcium 9.2 mg/dL (8.4-10.2) 09/01/18 05:52 Phosphorus 3.90 mg/dL (2.5-4.5) 08/25/18 04:43 Iron 30 ug/dL (49-181) L 08/16/18 13:52 TIBC 352 mcg/dL (250-450) 08/16/18 13:52 78.2 ng/mL (13.0-400.0) 08/18/18 08:34 0.40 mg/dL (0.1-1.2) 08/15/18 18:54 AST 25 units/L (5-40) 08/15/18 18:54 ALT 15 units/L (7-56) 08/15/18 18:54 74 units/L (35-129) 08/15/18 18:54 340 units/L (55-170) H 08/15/18 21:24 CK-MB (CK-2) 5.0 ng/mL (0.0-4.0) H 08/15/18 21:24 CK-MB (CK-2) Rel Index 1.4 (0-4) 08/15/18 21:24 0.026 ng/mL (0.00-0.029) 08/15/18 21:24 NT-Pro-B Natriuret Pep 877.6 pg/mL (0-900) 08/17/18 11:13 6.1 g/dL (6.1-8.1) 08/17/18 11:13 6.7 g/dL (6.3-8.2) 08/15/18 18:54 2.9 g/dL (3.8-4.8) L 08/17/18 11:13 0.9 % 08/15/18 18:54 0.4 g/dL (0.2-0.3) H 08/17/18 11:13 0.7 g/dL (0.5-0.9) 08/17/18 11:13 0.5 g/dL (0.2-0.5) 08/17/18 11:13 1.1 g/dL (0.8-1.7) 08/17/18 11:13 Abnorm Protein Band 1 see below 08/17/18 11:13 PEP Interpretation see below H 08/17/18 11:13 Triglycerides 140 mg/dL (2-149) 08/16/18 03:37 Cholesterol 147 mg/dL (50-199) 08/16/18 03:37 88 mg/dL (50-130) 08/16/18 03:37 37 mg/dL (40-59) L 08/16/18 03:37 3.97 % 08/16/18 03:37 Straw (Yellow) 08/17/18 04:00 Clear (Clear) 08/17/18 04:00 7.0 (5.0-7.0) 08/17/18 04:00 Ur Specific [place] 1.006 (1.003-1.030) 08/17/18 04:00 100 mg/dl mg/dL (Negative) 08/17/18 04:00 Neg mg/dL (Negative) 08/17/18 04:00 Neg mg/dL (Negative) 08/17/18 04:00 Neg (Negative) 08/17/18 04:00 Neg (Negative) 08/17/18 04:00 Neg (Negative) 08/17/18 04:00 < 2.0 mg/dL (<2.0) 08/17/18 04:00 Ur Leukocyte Esterase Neg (Negative) 08/17/18 04:00 < 1.0 /HPF (0.0-6.0) 08/17/18 04:00 2.0 /HPF (0.0-6.0) 08/17/18 04:00 U Epithel Cells (Auto) 1.0 /HPF (0-13.0) 08/15/18 18:47 1+ /HPF (Negative) 08/17/18 04:00 Few /HPF 08/15/18 18:47 None seen (None Seen) 08/17/18 04:00 Ur Random Creatinine See scanned report 08/17/18 10:40 U Random Total Protein See scanned report 08/17/18 10:40 800 ml 08/20/18 12:09 56.1 mg/dL (0.1-20.0) H 08/20/18 12:09 Height (in) 68.0 inches 08/20/18 12:09 Weight (lb) 348.8 lbs 08/20/18 12:09 6 08/20/18 12:09 Protein/Creatinin Ratio See scanned report 08/17/18 10:40 132 mmol/L 08/17/18 04:00 106 08/17/18 04:00 79 mg/dL (5-11.8) H 08/17/18 04:00 U Abnormal Prot Band 1 See scanned report 08/17/18 10:40 U Abnormal Prot Band 2 See scanned report 08/17/18 10:40 U Abnormal Prot Band 3 See scanned report 08/17/18 10:40 Immunofix Electrophor see below 08/17/18 11:13 JELANI Screen Negative (Negative) 08/17/18 11:13 Double Strand DNA Ab <1 IU/mL (<=4) 08/17/18 11:13 144 mg/dL (82-185) 08/17/18 11:13 23 mg/dL (15-53) 08/17/18 11:13 RPR Nonreactive (Nonreactive) 08/17/18 11:13 Hepatitis A IgM Ab Non-reactive (NonReactive) 08/17/18 11:13 Hep Bs Antigen Non-reactive (Negative) 08/17/18 11:13 Hep B Core IgM Ab Non-reactive (NonReactive) 08/17/18 11:13 Non-reactive (NonReactive) 08/17/18 11:13 HIV 1&2 Antibody Rapid Non react (Non React) 08/17/18 11:13 Non react (Non React) 08/17/18 11:13 Active Medications - Current Medications Current Medications: Generic Name Dose Route Start Last Admin Trade Name Freq PRN Reason Stop Dose Admin Acetaminophen 650 mg 08/16/18 03:07 08/21/18 21:55 Tylenol PO 650 mg Q4H PRN Administration Pain MILD(1-3)/Fever >100.5/FRAIRE Albuterol 2.5 mg 08/16/18 03:07 Proventil IH Q4HRT PRN Shortness Of Breath Aspirin 81 mg 08/16/18 10:00 08/31/18 10:30 Baby Aspirin PO 81 mg QDAY ARLENE Administration Atorvastatin Calcium 40 mg 08/16/18 22:00 08/31/18 22:41 Lipitor PO 40 mg QHS ARLENE Administration Carvedilol 6.25 mg 08/17/18 12:00 08/31/18 22:41 Coreg PO 6.25 mg BID [facility] Administration Cholecalciferol 5,000 unit 08/16/18 10:00 08/31/18 10:30 Vitamin D3 PO 5,000 unit DAILY [facility] Administration Dextrose 50 ml 08/16/18 03:13 D50w (25gm) Syringe IV PRN PRN Hypoglycemia Docusate Sodium 100 mg 08/16/18 10:00 08/31/18 22:41 Colace PO 100 mg BID ARLENE Administration Epoetin [place] 10,000 unit 08/18/18 13:00 08/30/18 12:35 Procrit SUB-Q 10,000 unit MOWEFR [facility] Administration Gabapentin 300 mg 08/16/18 22:00 08/31/18 22:41 Neurontin PO 300 mg QHS ARLENE Administration Heparin Sodium (Porcine) 5,000 unit 08/16/18 10:00 08/31/18 22:42 Heparin SUB-Q 5,000 unit Q12HR ARLENE Administration Hydralazine HCl 50 mg 08/16/18 14:00 08/31/18 22:42 Apresoline PO 50 mg Q8HR ARLENE Administration Ceftriaxone Sodium 1 gm in 50 mls @ 100 mls/hr 08/28/18 20:00 08/31/18 11:56 Rocephin/Ns 1 Gm/50 Ml IV 100 mls/hr Q24HR ARLENE Administration Protocol Sodium Chloride 100 mls @ 999 mls/hr 08/31/18 11:46 Nacl 0.9% IV JANE PRN Hypotension Insulin Human Lispro 0 unit 08/16/18 07:30 08/31/18 22:42 Humalog SUB-Q 2 unit ACHS ARLENE Administration Protocol Insulin Human Regular 5 units 08/16/18 07:30 09/01/18 08:16 Humulin R SUB-Q 5 units AC ARLENE Administration Nitroglycerin 0.4 mg 08/16/18 03:07 Nitrostat SL .Q5MIN PRN Chest Pain Ondansetron HCl 4 mg 08/16/18 03:07 08/16/18 16:39 Zofran IV 4 mg Q8H PRN Administration Nausea And Vomiting Oxycodone/Acetaminophen 1 tab 08/16/18 03:07 08/23/18 22:06 Percocet 5/325 PO 1 tab Q6H PRN Administration Pain, Moderate (4-6) Sodium Chloride 10 ml 08/16/18 10:00 08/31/18 22:46 Sodium Chloride Flush Syringe 10 Ml IV 10 ml BID ARLENE Administration Sodium Chloride 10 ml 08/16/18 03:07 08/16/18 06:17 Sodium Chloride Flush Syringe 10 Ml IV 10 ml PRN PRN Administration LINE FLUSH Nutrition/Malnutrition Assess - Dietary Evaluation Nutrition/Malnutrition Findings: Nutrition Notes Start: 08/16/18 09:25 Freq: Status: Active Protocol: Document 08/19/18 14:48 GHASSAN (Rec: 08/19/18 14:54 GHASSAN [email or web address]) Nutrition Notes Initial or Follow up Brief Note Current Diagnosis CKD(stage I-IV),Diabetes Other Pertinent Diagnosis Fluid retention in scrotum and BLE edema, wounds on toe, heel and leg Current Diet Cardiac/consistent CHO Labs/Tests Na 134 BUN 55 Cr 4.4 Pertinent Medications Reviewed [place] Body Weight (kg) 0 Subjective/Other Information Pt reports good appetite; has been consuming 75-100% of meals. Nutrition Intervention Revisit per MD consult or patient Sign Off request:
[2018-09-01] MEDS ORDERED: NACL 0.9 (PRIMING MACHINE ONLY DIALYSIS) MC ONE (12:39)
[2018-09-01] MEDS: PROCRIT SUB-Q SCH (12:45)
[2018-09-01] MEDS: BABY ASPIRIN PO SCH (13:59)
[2018-09-01] MEDS: VITAMIN D3 PO SCH (13:59)
--- NOTE | 2018-09-01 13:59 | Progress Note ---
Assessment and Plan Patient has dialysis to day. Patient awake and resting on room air at this time. O2 sat 95%. No acute respiratory distress. Recommend to use O2 2L when he is not on BiPAP. Patient uses BIPAP at night . Pressures . - Patient Problems (1) CHF (congestive heart failure) Current Visit: Yes Status: Acute Qualifiers: Heart failure type: diastolic Heart failure chronicity: acute Qualified Code(s): I50.31 - Acute diastolic (congestive) heart failure Plan to address problem: Management as per cardiology. (2) CKD (chronic kidney disease) Current Visit: Yes Status: Acute Qualifiers: Chronic kidney disease stage: stage 3 (moderate) Qualified Code(s): N18.3 - Chronic kidney disease, stage 3 (moderate) Plan to address problem: Patient is on hemodialysis. Management as per nephrology. (3) HANSEN (dyspnea on exertion) Current Visit: Yes Status: Acute Plan to address problem: Albuterol aerosol treatments q 6 hours prn for shortness of breath. O2 2 litres via nasal canula BIPAP during night time and PRN during day time for shortness of breath. Continue S/C Heparin. (4) Elevated d-dimer Current Visit: Yes Status: Acute Plan to address problem: Venous doppler studies reported negative for DVT. Perfusion lung scan reported low probabily for pulmonary emboli. Continue S/C heparin. (5) Essential hypertension Current Visit: Yes Status: Chronic Plan to address problem: Management as per primary care. (6) Morbid obesity Current Visit: Yes Status: Chronic Plan to address problem: Recommend to loose weight. Exercise and diet. (7) Sleep apnea with use of continuous positive airway pressure (CPAP) Current Visit: Yes Status: Acute Plan to address problem: Continue BIPAP as using at home. Subjective Date of service: 09/01/18 Principal diagnosis: CHF; CKD; HANSEN; Elevated d-dimer; Essential HTN; Morbid obesity; MARBELLA Interval history: Patient has dialysis to day. Patient awake and resting on room air at this time. O2 sat 95%. No acute respiratory distress. Recommend to use O2 2L when he is not on BiPAP. Patient uses BIPAP at night . Pressures . Objective Vital Signs - 12hr 09/01/18 09/01/18 09/01/18 04:05 08:05 09:45 Temperature 98.0 F 98.3 F 98.2 F Pulse Rate 74 62 71 Respiratory 20 18 18 Rate Blood Pressure 119/59 117/54 127/69 O2 Sat by Pulse 96 95 Oximetry 09/01/18 09/01/18 09/01/18 10:00 10:15 10:30 Temperature Pulse Rate 70 78 77 Respiratory Rate Blood Pressure 98/39 128/48 103/35 O2 Sat by Pulse Oximetry 09/01/18 10:45 Temperature Pulse Rate 79 Respiratory Rate Blood Pressure 114/61 O2 Sat by Pulse Oximetry Constitutional: no acute distress, alert, other (Morbidly Obese middle aged CM) Eyes: non-icteric ENT: oropharynx moist, other (mallampati 4) Neck: supple, no JVD, other (large neck circumference) Effort: mildly labored Ascultation: Bilateral: diminished breath sounds, rhonchi (scant in bases) Percussion: Bilateral: not dull Cardiovascular: regular rate and rhythm Gastrointestinal: normoactive bowel sounds, soft, non-tender, other (protuberant) Integumentary: cellulitis, other (Cellulitis and wounds in both lower legs.) Extremities: no cyanosis, pink and warm, pulses normal, edema (trace to 1+) Neurologic: normal mental status, non-focal exam, pupils equal and round, CN II- XII normal Psychiatric: mood appropriate, affect normal CBC and BMP: 08/30/18 04:17 09/01/18 05:52 ABG, PT/INR, D-dimer: PT/INR, D-dimer 463.24 ng/mlDDU (0-234) H 08/15/18 21:24 Abnormal lab findings: Abnormal Labs 08/15/18 08/15/18 08/15/18 18:02 18:54 18:54 WBC RBC 3.61 L Hgb 9.8 L Hct 30.1 L MCV MCH 27 L RDW 16.8 H Plt Count Burke % (Auto) 10.7 H Eos % (Auto) 5.9 H Seg Neuts % (Manual) Lymphocytes % (Manual) Monocytes % (Manual) Eosinophils % (Manual) Basophils % (Manual) Seg Neutrophils # Man D-Dimer Sodium Chloride 107.7 H BUN 25 H Creatinine 2.5 H Glucose 159 H POC Glucose 124 H Hemoglobin A1c Calcium Phosphorus Iron Total Creatine Kinase CK-MB (CK-2) Albumin 3.2 L Ojumi-3-Kddslbuzp PEP Interpretation HDL Cholesterol Urine Creatinine Urine Total Protein 08/15/18 08/15/18 08/16/18 21:24 21:24 03:37 WBC RBC Hgb Hct MCV MCH RDW Plt Count Burke % (Auto) Eos % (Auto) Seg Neuts % (Manual) Lymphocytes % (Manual) Monocytes % (Manual) Eosinophils % (Manual) Basophils % (Manual) Seg Neutrophils # Sadi D-Dimer 463.24 H Sodium Chloride BUN Creatinine Glucose POC Glucose Hemoglobin A1c 7.4 H Calcium Phosphorus Iron Total Creatine Kinase 340 H CK-MB (CK-2) 5.0 H Albumin Iujcu-2-Xolcnnpii PEP Interpretation HDL Cholesterol Urine Creatinine Urine Total Protein 08/16/18 08/16/18 08/16/18 03:37 07:54 12:01 WBC RBC Hgb Hct MCV MCH RDW Plt Count [place] % (Auto) Eos % (Auto) Seg Neuts % (Manual) Lymphocytes % (Manual) Monocytes % (Manual) Eosinophils % (Manual) Basophils % (Manual) Seg Neutrophils # Sadi D-Dimer Sodium Chloride BUN Creatinine Glucose POC Glucose 113 H 179 H Hemoglobin A1c Calcium Phosphorus Iron Total Creatine Kinase CK-MB (CK-2) Albumin Eiesb-4-Gnfsrbxak PEP Interpretation HDL Cholesterol 37 L Urine Creatinine Urine Total Protein 08/16/18 08/16/18 08/16/18 13:52 17:44 21:21 WBC RBC Hgb Hct MCV MCH RDW Plt Count [place] % (Auto) Eos % (Auto) Seg Neuts % (Manual) Lymphocytes % (Manual) Monocytes % (Manual) Eosinophils % (Manual) Basophils % (Manual) Seg Neutrophils # Said D-Dimer Sodium Chloride BUN Creatinine Glucose POC Glucose 221 H 165 H Hemoglobin A1c Calcium Phosphorus Iron 30 L Total Creatine Kinase CK-MB (CK-2) Albumin Arako-6-Jkjcebqmr PEP Interpretation HDL Cholesterol Urine Creatinine Urine Total Protein 08/17/18 08/17/18 08/17/18 04:00 07:30 07:30 WBC RBC Hgb 10.3 L Hct 31.5 L MCV 82 L MCH 27 L RDW 16.8 H Plt Count Burke % (Auto) 14.0 H Eos % (Auto) 6.6 H Seg Neuts % (Manual) Lymphocytes % (Manual) Monocytes % (Manual) Eosinophils % (Manual) Basophils % (Manual) Seg Neutrophils # Sadi D-Dimer Sodium Chloride BUN 32 H Creatinine 2.9 H Glucose 180 H POC Glucose Hemoglobin A1c Calcium Phosphorus Iron Total Creatine Kinase CK-MB (CK-2) Albumin Miufj-2-Ttyzmvdph PEP Interpretation HDL Cholesterol Urine Creatinine 22.4 H Urine Total Protein 79 H 08/17/18 08/17/18 08/17/18 07:34 11:13 12:17 WBC RBC Hgb Hct MCV MCH RDW Plt Count [place] % (Auto) Eos % (Auto) Seg Neuts % (Manual) Lymphocytes % (Manual) Monocytes % (Manual) Eosinophils % (Manual) Basophils % (Manual) Seg Neutrophils # Sadi D-Dimer Sodium Chloride BUN Creatinine Glucose POC Glucose 169 H 207 H Hemoglobin A1c Calcium Phosphorus Iron Total Creatine Kinase CK-MB (CK-2) Albumin 2.9 L Okbmg-7-Syqfzmfvk 0.4 H PEP Interpretation see below H HDL Cholesterol Urine Creatinine Urine Total Protein 08/17/18 08/17/18 08/18/18 16:36 21:17 07:05 WBC RBC Hgb Hct MCV MCH RDW Plt Count [place] % (Auto) Eos % (Auto) Seg Neuts % (Manual) Lymphocytes % (Manual) Monocytes % (Manual) Eosinophils % (Manual) Basophils % (Manual) Seg Neutrophils Rosette Green-Natalya Sodium 134 L Chloride 95.9 L BUN 43 H Creatinine 3.8 H Glucose 150 H POC Glucose 184 H 209 H Hemoglobin A1c Calcium Phosphorus Iron Total Creatine Kinase CK-MB (CK-2) Albumin Xrqdp-8-Wzqmrwmcs PEP Interpretation HDL Cholesterol Urine Creatinine Urine Total Protein 08/18/18 08/18/18 08/18/18 07:53 08:34 11:53 WBC RBC Hgb 10.8 L Hct 33.8 L MCV MCH 27 L RDW 16.3 H Plt Count [place] % (Auto) Eos % (Auto) Seg Neuts % (Manual) Lymphocytes % (Manual) Monocytes % (Manual) Eosinophils % (Manual) Basophils % (Manual) Seg Neutrophils Rosette Avitia D-Dimer Sodium Chloride BUN Creatinine Glucose POC Glucose 139 H 191 H Hemoglobin A1c Calcium Phosphorus Iron Total Creatine Kinase CK-MB (CK-2) Albumin Flimm-6-Zvcpsdgwo PEP Interpretation HDL Cholesterol Urine Creatinine Urine Total Protein 08/18/18 08/18/18 08/19/18 15:54 20:49 05:28 WBC RBC Hgb 9.7 L Hct 30.1 L MCV 82 L MCH 26 L RDW 16.6 H Plt Count 136 L Burke % (Auto) Eos % (Auto) Seg Neuts % (Manual) Lymphocytes % (Manual) Monocytes % (Manual) Eosinophils % (Manual) Basophils % (Manual) Seg Neutrophils # Sadi D-Dimer Sodium Chloride BUN Creatinine Glucose POC Glucose 150 H 138 H Hemoglobin A1c Calcium Phosphorus Iron Total Creatine Kinase CK-MB (CK-2) Albumin Nuitm-0-Onreleaur PEP Interpretation HDL Cholesterol Urine Creatinine Urine Total Protein 08/19/18 08/19/18 08/19/18 05:28 07:43 11:57 WBC RBC Hgb Hct MCV MCH RDW Plt Count [place] % (Auto) Eos % (Auto) Seg Neuts % (Manual) Lymphocytes % (Manual) Monocytes % (Manual) Eosinophils % (Manual) Basophils % (Manual) Seg Neutrophils # Sadi D-Dimer Sodium 134 L Chloride 96.2 L BUN 55 H Creatinine 4.4 H Glucose 118 H POC Glucose 162 H 280 H Hemoglobin A1c Calcium Phosphorus Iron Total Creatine Kinase CK-MB (CK-2) Albumin Hkebb-7-Poemwbrsw PEP Interpretation HDL Cholesterol Urine Creatinine Urine Total Protein 08/19/18 08/19/18 08/20/18 15:41 21:44 04:53 WBC 3.5 L RBC 3.58 L Hgb 9.4 L Hct 29.5 L MCV 83 L MCH 26 L RDW 16.4 H Plt Count 121 L Burke % (Auto) Eos % (Auto) Seg Neuts % (Manual) Lymphocytes % (Manual) Monocytes % (Manual) 16.0 H Eosinophils % (Manual) Basophils % (Manual) 3.0 H Seg Neutrophils # Sadi 1.6 L D-Dimer Sodium Chloride BUN Creatinine Glucose POC Glucose 167 H 234 H Hemoglobin A1c Calcium Phosphorus Iron Total Creatine Kinase CK-MB (CK-2) Albumin Rszqb-9-Oifojphgf PEP Interpretation HDL Cholesterol Urine Creatinine Urine Total Protein 08/20/18 08/20/18 08/20/18 04:53 08:13 12:09 WBC RBC Hgb Hct MCV MCH RDW Plt Count [place] % (Auto) Eos % (Auto) Seg Neuts % (Manual) Lymphocytes % (Manual) Monocytes % (Manual) Eosinophils % (Manual) Basophils % (Manual) Seg Neutrophils # Sadi D-Dimer Sodium 136 L Chloride BUN 57 H Creatinine 3.3 H Glucose 136 H POC Glucose 124 H Hemoglobin A1c Calcium Phosphorus 5.50 H Iron Total Creatine Kinase CK-MB (CK-2) Albumin Barkr-4-Bgdjpudeb PEP Interpretation HDL Cholesterol Urine Creatinine 56.1 H Urine Total Protein 08/20/18 08/20/18 08/20/18 12:49 18:26 20:53 WBC RBC Hgb Hct MCV MCH RDW Plt Count [place] % (Auto) Eos % (Auto) Seg Neuts % (Manual) Lymphocytes % (Manual) Monocytes % (Manual) Eosinophils % (Manual) Basophils % (Manual) Seg Neutrophils # Man D-Dimer Sodium Chloride BUN Creatinine Glucose POC Glucose 145 H 175 H 184 H Hemoglobin A1c Calcium Phosphorus Iron Total Creatine Kinase CK-MB (CK-2) Albumin Ztxfh-0-Cqorezuha PEP Interpretation HDL Cholesterol Urine Creatinine Urine Total Protein 08/21/18 08/21/18 08/21/18 04:28 04:28 08:58 WBC 3.8 L RBC 3.42 L Hgb 9.2 L Hct 28.4 L MCV 83 L MCH 27 L RDW 16.4 H Plt Count 126 L Burke % (Auto) Eos % (Auto) Seg Neuts % (Manual) Lymphocytes % (Manual) Monocytes % (Manual) 15.0 H Eosinophils % (Manual) Basophils % (Manual) Seg Neutrophils # Man D-Dimer Sodium 134 L Chloride 96.5 L BUN 59 H Creatinine 3.4 H Glucose 190 H POC Glucose 159 H Hemoglobin A1c Calcium Phosphorus 5.10 H Iron Total Creatine Kinase CK-MB (CK-2) Albumin Uldap-8-Gixwsyuiy PEP Interpretation HDL Cholesterol Urine Creatinine Urine Total Protein 08/21/18 08/21/18 08/21/18 12:25 17:10 21:43 WBC RBC Hgb Hct MCV MCH RDW Plt Count [place] % (Auto) Eos % (Auto) Seg Neuts % (Manual) Lymphocytes % (Manual) Monocytes % (Manual) Eosinophils % (Manual) Basophils % (Manual) Seg Neutrophils # Man D-Dimer Sodium Chloride BUN Creatinine Glucose POC Glucose 222 H 152 H 150 H Hemoglobin A1c Calcium Phosphorus Iron Total Creatine Kinase CK-MB (CK-2) Albumin Xibfe-7-Hwbzfgupl PEP Interpretation HDL Cholesterol Urine Creatinine Urine Total Protein 08/22/18 08/22/18 08/22/18 04:50 04:51 08:08 WBC 3.7 L RBC 3.37 L Hgb 9.0 L Hct 27.8 L MCV 83 L MCH 27 L RDW 16.9 H Plt Count 124 L Burke % (Auto) Eos % (Auto) Seg Neuts % (Manual) Lymphocytes % (Manual) Monocytes % (Manual) 13.0 H Eosinophils % (Manual) 11.0 H Basophils % (Manual) Seg Neutrophils # Man 1.6 L D-Dimer Sodium 135 L Chloride 97.4 L BUN 64 H Creatinine 3.5 H Glucose 114 H POC Glucose 117 H Hemoglobin A1c Calcium Phosphorus 4.90 H Iron Total Creatine Kinase CK-MB (CK-2) Albumin Cxvdv-7-Wwbgcwcjf PEP Interpretation HDL Cholesterol Urine Creatinine Urine Total Protein 08/22/18 08/22/18 08/23/18 14:48 21:36 05:09 WBC 4.3 L RBC 3.60 L Hgb 9.6 L Hct 29.6 L MCV 82 L MCH 27 L RDW 16.6 H Plt Count 134 L Burke % (Auto) Eos % (Auto) Seg Neuts % (Manual) 38.0 L Lymphocytes % (Manual) 51.0 H Monocytes % (Manual) 8.0 H Eosinophils % (Manual) Basophils % (Manual) Seg Neutrophils # Sadi 1.6 L D-Dimer Sodium Chloride BUN Creatinine Glucose POC Glucose 211 H 268 H Hemoglobin A1c Calcium Phosphorus Iron Total Creatine Kinase CK-MB (CK-2) Albumin Bebrk-1-Edjznrnjf PEP Interpretation HDL Cholesterol Urine Creatinine Urine Total Protein 08/23/18 08/23/18 08/23/18 05:09 07:44 14:02 WBC RBC Hgb Hct MCV MCH RDW Plt Count [place] % (Auto) Eos % (Auto) Seg Neuts % (Manual) Lymphocytes % (Manual) Monocytes % (Manual) Eosinophils % (Manual) Basophils % (Manual) Seg Neutrophils # Man D-Dimer Sodium Chloride BUN 45 H Creatinine 2.6 H Glucose 174 H POC Glucose 240 H 161 H Hemoglobin A1c Calcium Phosphorus Iron Total Creatine Kinase CK-MB (CK-2) Albumin Yfyyp-8-Zpqunxxzs PEP Interpretation HDL Cholesterol Urine Creatinine Urine Total Protein 08/23/18 08/23/18 08/24/18 17:33 20:32 05:09 WBC RBC Hgb Hct MCV MCH RDW Plt Count Burke % (Auto) Eos % (Auto) Seg Neuts % (Manual) Lymphocytes % (Manual) Monocytes % (Manual) Eosinophils % (Manual) Basophils % (Manual) Seg Neutrophils # Man D-Dimer Sodium 135 L Chloride 97.4 L BUN 38 H Creatinine 2.3 H Glucose 183 H POC Glucose 217 H 208 H Hemoglobin A1c Calcium Phosphorus Iron Total Creatine Kinase CK-MB (CK-2) Albumin Lnwtn-8-Utrwjmsnf PEP Interpretation HDL Cholesterol Urine Creatinine Urine Total Protein 08/24/18 08/24/18 08/24/18 07:49 11:32 16:44 WBC RBC Hgb Hct MCV MCH RDW Plt Count [place] % (Auto) Eos % (Auto) Seg Neuts % (Manual) Lymphocytes % (Manual) Monocytes % (Manual) Eosinophils % (Manual) Basophils % (Manual) Seg Neutrophils # Sadi D-Dimer Sodium Chloride BUN Creatinine Glucose POC Glucose 171 H 271 H 168 H Hemoglobin A1c Calcium Phosphorus Iron Total Creatine Kinase CK-MB (CK-2) Albumin Xdped-2-Pbjduueuh PEP Interpretation HDL Cholesterol Urine Creatinine Urine Total Protein 08/24/18 08/25/18 08/25/18 20:54 04:43 04:43 WBC RBC 3.41 L Hgb 9.1 L Hct 28.0 L MCV 82 L MCH 27 L RDW 17.0 H Plt Count 133 L Burke % (Auto) Eos % (Auto) Seg Neuts % (Manual) Lymphocytes % (Manual) Monocytes % (Manual) 10.0 H Eosinophils % (Manual) Basophils % (Manual) Seg Neutrophils # Sadi D-Dimer Sodium 136 L Chloride BUN 44 H Creatinine 2.6 H Glucose 193 H POC Glucose 214 H Hemoglobin A1c Calcium Phosphorus Iron Total Creatine Kinase CK-MB (CK-2) Albumin Aanyz-6-Rgvstfgmo PEP Interpretation HDL Cholesterol Urine Creatinine Urine Total Protein 08/25/18 08/25/18 08/25/18 08:04 13:43 16:39 WBC RBC Hgb Hct MCV MCH RDW Plt Count [place] % (Auto) Eos % (Auto) Seg Neuts % (Manual) Lymphocytes % (Manual) Monocytes % (Manual) Eosinophils % (Manual) Basophils % (Manual) Seg Neutrophils # Man D-Dimer Sodium Chloride BUN Creatinine Glucose POC Glucose 167 H 193 H 249 H Hemoglobin A1c Calcium Phosphorus Iron Total Creatine Kinase CK-MB (CK-2) Albumin Lycnz-6-Rhvzjbeqw PEP Interpretation HDL Cholesterol Urine Creatinine Urine Total Protein 08/25/18 08/26/18 08/26/18 21:15 04:56 07:21 WBC RBC Hgb Hct MCV MCH RDW Plt Count [place] % (Auto) Eos % (Auto) Seg Neuts % (Manual) Lymphocytes % (Manual) Monocytes % (Manual) Eosinophils % (Manual) Basophils % (Manual) Seg Neutrophils # Sadi D-Dimer Sodium 133 L Chloride 96.3 L BUN 32 H Creatinine 2.1 H Glucose 186 H POC Glucose 176 H 183 H Hemoglobin A1c Calcium 8.3 L Phosphorus Iron Total Creatine Kinase CK-MB (CK-2) Albumin Pcuko-6-Zhzdfffcq PEP Interpretation HDL Cholesterol Urine Creatinine Urine Total Protein 08/26/18 08/26/18 08/26/18 14:34 16:34 21:07 WBC RBC Hgb Hct MCV MCH RDW Plt Count [place] % (Auto) Eos % (Auto) Seg Neuts % (Manual) Lymphocytes % (Manual) Monocytes % (Manual) Eosinophils % (Manual) Basophils % (Manual) Seg Neutrophils # Sadi D-Dimer Sodium Chloride BUN Creatinine Glucose POC Glucose 165 H 206 H 185 H Hemoglobin A1c Calcium Phosphorus Iron Total Creatine Kinase CK-MB (CK-2) Albumin Ktynj-7-Frbrjgnnx PEP Interpretation HDL Cholesterol Urine Creatinine Urine Total Protein 08/27/18 08/27/18 08/27/18 07:34 08:23 16:31 WBC RBC Hgb Hct MCV MCH RDW Plt Count [place] % (Auto) Eos % (Auto) Seg Neuts % (Manual) Lymphocytes % (Manual) Monocytes % (Manual) Eosinophils % (Manual) Basophils % (Manual) Seg Neutrophils # Sadi D-Dimer Sodium 135 L Chloride 97.3 L BUN 28 H Creatinine 2.4 H Glucose 130 H POC Glucose 136 H 229 H Hemoglobin A1c Calcium 8.0 L Phosphorus Iron Total Creatine Kinase CK-MB (CK-2) Albumin Pxpms-4-Llzrwccoh PEP Interpretation HDL Cholesterol Urine Creatinine Urine Total Protein 08/27/18 08/28/18 08/28/18 21:32 04:40 07:48 WBC RBC Hgb Hct MCV MCH RDW Plt Count [place] % (Auto) Eos % (Auto) Seg Neuts % (Manual) Lymphocytes % (Manual) Monocytes % (Manual) Eosinophils % (Manual) Basophils % (Manual) Seg Neutrophils # Man D-Dimer Sodium 135 L Chloride 97.9 L BUN 25 H Creatinine 2.2 H Glucose 118 H POC Glucose 142 H 120 H Hemoglobin A1c Calcium Phosphorus Iron Total Creatine Kinase CK-MB (CK-2) Albumin Fmoax-6-Zbmsernfb PEP Interpretation HDL Cholesterol Urine Creatinine Urine Total Protein 08/28/18 08/28/18 08/29/18 17:11 20:52 04:29 WBC RBC Hgb Hct MCV MCH RDW Plt Count [place] % (Auto) Eos % (Auto) Seg Neuts % (Manual) Lymphocytes % (Manual) Monocytes % (Manual) Eosinophils % (Manual) Basophils % (Manual) Seg Neutrophils # Sadi D-Dimer Sodium 134 L Chloride 93.3 L BUN 36 H Creatinine 2.9 H Glucose 187 H POC Glucose 209 H 188 H Hemoglobin A1c Calcium Phosphorus Iron Total Creatine Kinase CK-MB (CK-2) Albumin Ogoaw-5-Pzruxnirr PEP Interpretation HDL Cholesterol Urine Creatinine Urine Total Protein 08/29/18 08/29/18 08/29/18 08:21 16:54 22:22 WBC RBC Hgb Hct MCV MCH RDW Plt Count [place] % (Auto) Eos % (Auto) Seg Neuts % (Manual) Lymphocytes % (Manual) Monocytes % (Manual) Eosinophils % (Manual) Basophils % (Manual) Seg Neutrophils # Sadi D-Dimer Sodium Chloride BUN Creatinine Glucose POC Glucose 144 H 277 H 240 H Hemoglobin A1c Calcium Phosphorus Iron Total Creatine Kinase CK-MB (CK-2) Albumin Uubnk-8-Tcgpxagbr PEP Interpretation HDL Cholesterol Urine Creatinine Urine Total Protein 08/30/18 08/30/18 08/30/18 04:17 04:17 07:56 WBC RBC 3.64 L Hgb 9.8 L Hct 29.6 L MCV 81 L MCH 27 L RDW 16.8 H Plt Count [place] % (Auto) Eos % (Auto) Seg Neuts % (Manual) Lymphocytes % (Manual) Monocytes % (Manual) Eosinophils % (Manual) Basophils % (Manual) Seg Neutrophils # Sadi D-Dimer Sodium 133 L Chloride 96.4 L BUN 33 H Creatinine 2.9 H Glucose 142 H POC Glucose 134 H Hemoglobin A1c Calcium Phosphorus Iron Total Creatine Kinase CK-MB (CK-2) Albumin Qowpd-3-Iwffhtzkz PEP Interpretation HDL Cholesterol Urine Creatinine Urine Total Protein 08/30/18 08/30/18 08/31/18 17:11 20:58 07:57 WBC RBC Hgb Hct MCV MCH RDW Plt Count [place] % (Auto) Eos % (Auto) Seg Neuts % (Manual) Lymphocytes % (Manual) Monocytes % (Manual) Eosinophils % (Manual) Basophils % (Manual) Seg Neutrophils # Sadi D-Dimer Sodium Chloride BUN Creatinine Glucose POC Glucose 223 H 238 H 143 H Hemoglobin A1c Calcium Phosphorus Iron Total Creatine Kinase CK-MB (CK-2) Albumin Ydayh-3-Yhcndvlkw PEP Interpretation HDL Cholesterol Urine Creatinine Urine Total Protein 08/31/18 08/31/18 08/31/18 09:06 11:13 16:45 WBC RBC Hgb Hct MCV MCH RDW Plt Count [place] % (Auto) Eos % (Auto) Seg Neuts % (Manual) Lymphocytes % (Manual) Monocytes % (Manual) Eosinophils % (Manual) Basophils % (Manual) Seg Neutrophils # Man D-Dimer Sodium 130 L Chloride 87.5 L BUN 47 H Creatinine 3.5 H Glucose 214 H POC Glucose 223 H 320 H Hemoglobin A1c Calcium Phosphorus Iron Total Creatine Kinase CK-MB (CK-2) Albumin Zkkxg-2-Nrgfslsco PEP Interpretation HDL Cholesterol Urine Creatinine Urine Total Protein 08/31/18 09/01/18 09/01/18 21:48 05:52 07:25 WBC RBC Hgb Hct MCV MCH RDW Plt Count [place] % (Auto) Eos % (Auto) Seg Neuts % (Manual) Lymphocytes % (Manual) Monocytes % (Manual) Eosinophils % (Manual) Basophils % (Manual) Seg Neutrophils # Man D-Dimer Sodium 129 L Chloride 91.1 L BUN 57 H Creatinine 3.5 H Glucose 138 H POC Glucose 197 H 133 H Hemoglobin A1c Calcium Phosphorus Iron Total Creatine Kinase CK-MB (CK-2) Albumin Hxmgh-0-Izdgpywvb PEP Interpretation HDL Cholesterol Urine Creatinine Urine Total Protein Allied health notes reviewed: nursing
[2018-09-01] MEDS: HEPARIN SUB-Q SCH (14:00)
[2018-09-01] MEDS: COLACE PO SCH ×2 (14:00→22:36)
[2018-09-01] MEDS: COREG PO SCH (14:01)
[2018-09-01] MEDS: APRESOLINE PO SCH ×4 (14:07→22:37)
[2018-09-01] MEDS: ROCEPHIN/NS 1 GM/50 ML 1 GM/50 ML BAG IV SCH (14:11)
[2018-09-01] MEDS: SODIUM CHLORIDE FLUSH SYRINGE 10 ML IV SCH ×2 (14:11→22:38)
[2018-09-01] MEDS: HumaLOG SUB-Q SCH ×4 (14:13→22:37)
[2018-09-01] MEDS: NEURONTIN PO SCH (22:36)
[2018-09-02] MEDS: COREG PO SCH ×3 (00:56→22:20)
[2018-09-02] MEDS: HEPARIN SUB-Q SCH ×3 (00:56→22:20)
[2018-09-02] MEDS: APRESOLINE PO SCH ×3 (06:58→22:20)
[2018-09-02 08:11] LABS: Calcium 8.7 mg/dL (8.4-10.2)
[2018-09-02] MEDS: HumaLOG SUB-Q SCH ×4 (08:30→23:37)
[2018-09-02] MEDS: HumuLIN R SUB-Q SCH ×3 (08:57→16:30)
[2018-09-02] MEDS: VITAMIN D3 PO SCH (09:00)
[2018-09-02] MEDS: BABY ASPIRIN PO SCH (09:01)
[2018-09-02] MEDS: COLACE PO SCH ×2 (09:01→22:20)
[2018-09-02] MEDS: SODIUM CHLORIDE FLUSH SYRINGE 10 ML IV SCH ×2 (09:03→22:20)
[2018-09-02] MEDS ORDERED: NACL 0.9% 100 ML IV PRN ×2 (09:49→11:33)
--- NOTE | 2018-09-02 09:54 | Progress Note ---
Assessment and Plan Severe renal failure, likely ESRD, dialysis dependent: -s/p HD yesterday, no HD today. Eval for need daily. -First hemodialysis treatment was on 08/22/18. -Secondary GN workup was negative -Renal ultrasound on 08/16/18- Chronic medical renal disease. No Hydronephrosis. -No ACEI or ARB due to advanced renal failure -Renally dose all medications -Avoid Nephrotoxic agents -Strict I/O's monitoring -Will monitor for renal recovery Congestive Diastolic heart failure -Echo- LVEF is 55-60% -S/P IV Lasix -UF with HD -Cardiology onboard Anemia of chronic disease due to CKD: -On Epogen 10,000 units SQ every M,W,F -Monitor H/H Essential Hypertension: - Continue on current regimen - Adjust medications as needed Diabetes Mellitus type 2 on insulin: -On insulin as per primary team Patrick Fonseca MD [phone] Subjective Date of service: 09/02/18 Principal diagnosis: CHF; CKD; HANSEN; Elevated d-dimer; Essential HTN; Morbid obesity; MARBELLA Interval history: HD today. Objective - Exam Narrative Exam: GE: AAOX3, Obese HEENT: PERRLA Neck: Supple Chest: Coarse BS BL CVS: RRR Abd: Soft/Obese, BS+ Ext: 2-3 BLE edema Psyche: Appropriate mood - Vital Signs Vital signs: Vital Signs - 12hr 09/01/18 09/02/18 09/02/18 22:31 00:21 05:56 Temperature 98.1 F 97.3 F L Pulse Rate 70 68 77 Respiratory 18 18 22 Rate Blood Pressure 127/65 127/62 105/47 O2 Sat by Pulse 96 95 94 Oximetry 09/02/18 06:58 Temperature Pulse Rate 77 Respiratory Rate Blood Pressure 105/47 O2 Sat by Pulse Oximetry - Lab 08/30/18 04:17 09/02/18 06:46 Most recent lab results Calcium 8.7 mg/dL (8.4-10.2) 09/02/18 06:46 Phosphorus 3.90 mg/dL (2.5-4.5) 08/25/18 04:43 56.1 mg/dL (0.1-20.0) H 08/20/18 12:09 132 mmol/L 08/17/18 04:00 79 mg/dL (5-11.8) H 08/17/18 04:00 Medications & Allergies - Medications Allergies/Adverse Reactions: Allergies canagliflozin [From Invokana] Allergy (Verified 08/15/18 17:49) Unknown IV CONTRAST DYE Allergy (Uncoded 08/15/18 17:49) Unknown Home Medications: Home Medications Medication Instructions Recorded Confirmed Last Taken Type Acetaminophen [Acetaminophen ER] 650 mg PO Q8HR PRN 08/16/18 08/16/18 Unknown History Amlodipine Besylate/Benazepril 1 each PO QDAY 08/16/18 08/16/18 Unknown History [Lotrel 10-40 mg] AtorvaSTATin [Lipitor] 40 mg PO QHS 08/16/18 08/16/18 Unknown History Cholecalciferol (Vitamin D3) 5,000 unit PO DAILY 08/16/18 08/16/18 Unknown History [Vitamin D3 5,000 UNIT] Doxylamine Succinate [Unisom] 25 mg PO QHS 08/16/18 08/16/18 Unknown History Gabapentin [Neurontin] 300 mg PO QHS 08/16/18 08/16/18 Unknown History Insulin Regular, Human [Humulin R 90 unit SQ BID 08/16/18 08/16/18 Unknown History U-500 Kwikpen] Loratadine [Claritin] 10 mg PO DAILY PRN 08/16/18 08/16/18 Unknown History Melatonin [Melatonin 3MG TAB] 3 mg PO QHS 08/16/18 08/16/18 Unknown History Niacin [Niacor] 500 mg PO DAILY 08/16/18 08/16/18 Unknown History Omeprazole 20 mg PO DAILY PRN 08/16/18 08/16/18 Unknown History Triamcinolone Acetonide [Nasacort 10.8 ml NS DAILY 08/16/18 08/16/18 Unknown History SPRAY] Active Medications: Generic Name Dose Route Start Last Admin Trade Name Freq PRN Reason Stop Dose Admin Acetaminophen 650 mg 08/16/18 03:07 08/21/18 21:55 Tylenol PO 650 mg Q4H PRN Administration Pain MILD(1-3)/Fever >100.5/FRAIRE Albuterol 2.5 mg 08/16/18 03:07 Proventil IH Q4HRT PRN Shortness Of Breath Aspirin 81 mg 08/16/18 10:00 09/02/18 09:01 Baby Aspirin PO 81 mg QDAY ARLENE Administration Atorvastatin Calcium 40 mg 08/16/18 22:00 09/01/18 22:36 Lipitor PO 40 mg QHS [facility] Administration Carvedilol 6.25 mg 08/17/18 12:00 09/02/18 09:00 Coreg PO 6.25 mg BID ARLENE Administration Cholecalciferol 5,000 unit 08/16/18 10:00 09/02/18 09:00 Vitamin D3 PO 5,000 unit DAILY ARLENE Administration Dextrose 50 ml 08/16/18 03:13 D50w (25gm) Syringe IV PRN PRN Hypoglycemia Docusate Sodium 100 mg 08/16/18 10:00 09/02/18 09:01 Colace PO 100 mg BID [facility] Administration Epoetin Keon 10,000 unit 08/18/18 13:00 09/01/18 12:45 Procrit SUB-Q 10,000 unit MOWEFR [facility] Administration Gabapentin 300 mg 08/16/18 22:00 09/01/18 22:36 Neurontin PO 300 mg QHS [facility] Administration Heparin Sodium (Porcine) 5,000 unit 08/16/18 10:00 09/02/18 09:01 Heparin SUB-Q 5,000 unit Q12HR ARLENE Administration Hydralazine HCl 50 mg 08/16/18 14:00 09/02/18 06:58 Apresoline PO Not Given Q8HR [facility] Ceftriaxone Sodium 1 gm in 50 mls @ 100 mls/hr 08/28/18 20:00 09/01/18 14:11 Rocephin/Ns 1 Gm/50 Ml IV 100 mls/hr Q24HR [facility] Administration Protocol Sodium Chloride 100 mls @ 999 mls/hr 08/31/18 11:46 Nacl 0.9% IV JANE PRN Hypotension Sodium Chloride 100 mls @ 999 mls/hr 09/02/18 09:49 Nacl 0.9% IV JANE PRN Hypotension Insulin Human Lispro 0 unit 08/16/18 07:30 09/02/18 08:30 Humalog SUB-Q Not Given ACHS [facility] Protocol Insulin Human Regular 5 units 08/16/18 07:30 09/02/18 08:57 Humulin R SUB-Q 5 units AC ARLENE Administration Nitroglycerin 0.4 mg 08/16/18 03:07 Nitrostat SL .Q5MIN PRN Chest Pain Ondansetron HCl 4 mg 08/16/18 03:07 08/16/18 16:39 Zofran IV 4 mg Q8H PRN Administration Nausea And Vomiting Oxycodone/Acetaminophen 1 tab 08/16/18 03:07 08/23/18 22:06 Percocet 5/325 PO 1 tab Q6H PRN Administration Pain, Moderate (4-6) Sodium Chloride 10 ml 08/16/18 10:00 09/02/18 09:03 Sodium Chloride Flush Syringe 10 Ml IV 10 ml BID ARLENE Administration Sodium Chloride 10 ml 08/16/18 03:07 08/16/18 06:17 Sodium Chloride Flush Syringe 10 Ml IV 10 ml PRN PRN Administration LINE FLUSH
--- NOTE | 2018-09-02 11:14 | Progress Note ---
Assessment and Plan Assessment and plan: Acute heart failure with preserved EF. Continue present management. No ACEI or ARB due to advanced renal failure. Continue hemodialysis per nephrology. Acute on Chronic kidney disease, stage 3: Patient had Perm-catheter placed 08/22 and hemodialysis was initiated. Secondary GN workup was negative. Renal ultrasound on 08/16/18- Chronic medical renal disease. No Hydronephrosis. No ACEI or ARB due to advanced renal failure. Renally dose all medications. Avoid Nephrotoxic agents. Strict I/O's monitoring. Nephrology to determine long-term needs for hemodialysis. Nephrology states will need outpatient hemodialysis set-up [place]. Case man ager working on it. Still monitoring for Renal Recovery Anasarca and scrotal edema. Hyponatremia follow-up BMP. Elevated D-Dimer. VQ scan negative Hypertensive urgency: iv antihypertensives as needed, low salt diet DM type 2; ada and ssi HLD: treat with statins Malnutrition mild to moderate: counseling done, consulted Agency Legal Counsel Right toe pressure ulcer, poa, at least stage 3, heel ulcers bilateral also: see admission photos, local wound care done, continue Wound care Morbid obese, bmi 51.3, 342 lbs: counseled on lifestyle modification and weight reduction History Interval history: Patient is a 58-year-old male with history of hypertension, diabetes, HLD, CKD stage III who presents to [facility] ED with c/o bilateral lower extremity swelling and shortness of breath. Pt scrotum is swollen obstructing view of his penis. Currently patient is on 2L supplemental O2 with saturation of 94%. D-dimer slightly elevated at 463.24. CK-MB elevated at 5.0; troponin negative. 2D ECHO conclusions Global LV systolic function is normal, estimated estimated EF is 55- 60%; abnormal LV diastolic dysfunction, mild to moderate concentric LV hypertrophy, trace mr, tr, RVSP calculated at 57 mmHg. He is idagnosed with acute on CKD, initiated on dialysis 08/22/18. Also acute diastolic CHF that has improved with dialysis. After several dialysis sessions, nephrology has determined he needs to be on fpc dialysis. He is medically stable, awaiting arrangement for dialysis. He was planning to move to [place] so case management looking for dialysis center in [place]. No new issues overnight. Hospitalist Physical - Constitutional Vitals: Temp Pulse Resp BP Pulse Ox 97.3 F L 77 22 105/47 94 09/02/18 05:56 09/02/18 06:58 09/02/18 05:56 09/02/18 06:58 09/02/18 05:56 General appearance: Present: no acute distress, obese - EENT Eyes: Present: PERRL, EOM intact ENT: hearing intact, clear oral mucosa, dentition normal - Neck Neck: Present: supple, normal ROM - Respiratory Respiratory effort: normal Respiratory: bilateral: CTA - Cardiovascular Rhythm: regular Heart Sounds: Present: S1 & S2. Absent: gallop, rub - Extremities Extremities: no ischemia, No edema, Full ROM - Abdominal General gastrointestinal: soft, non-tender, non-distended, normal bowel sounds - Integumentary Integumentary: Present: clear, warm, dry - Neurologic Neurologic: CNII-XII intact, moves all extremities Results - Labs CBC & Chem 7: 08/30/18 04:17 09/02/18 06:46 Labs: Laboratory Last Values WBC 6.8 K/mm3 (4.5-11.0) 08/30/18 04:17 RBC 3.64 M/mm3 (3.65-5.03) L 08/30/18 04:17 Hgb 9.8 gm/dl (11.8-15.2) L 08/30/18 04:17 Hct 29.6 % (35.5-45.6) L 08/30/18 04:17 MCV 81 fl (84-94) L 08/30/18 04:17 MCH 27 pg (28-32) L 08/30/18 04:17 MCHC 33 % (32-34) 08/30/18 04:17 RDW 16.8 % (13.2-15.2) H 08/30/18 04:17 Plt Count 158 K/mm3 (140-440) 08/30/18 04:17 Lymph % (Auto) 26.6 % (13.4-35.0) 08/17/18 07:30 Gila % (Auto) Channel Development Director 08/25/18 04:43 Eos % (Auto) 6.6 % (0.0-4.3) H 08/17/18 07:30 Baso % (Auto) 1.1 % (0.0-1.8) 08/17/18 07:30 Lymph # 1.3 K/mm3 (1.2-5.4) 08/17/18 07:30 Gila # 0.7 K/mm3 (0.0-0.8) 08/17/18 07:30 Eos # 0.3 K/mm3 (0.0-0.4) 08/17/18 07:30 Baso # 0.1 K/mm3 (0.0-0.1) 08/17/18 07:30 Add Manual Diff Complete 08/25/18 04:43 Total Counted 100 08/25/18 04:43 Seg Neutrophils % 51.7 % (40.0-70.0) 08/17/18 07:30 Seg Neuts % (Manual) 62.0 % (40.0-70.0) 08/25/18 04:43 0 % 08/25/18 04:43 23.0 % (13.4-35.0) 08/25/18 04:43 Reactive Lymphs % (Man) 0 % 08/25/18 04:43 10.0 % (0.0-7.3) H 08/25/18 04:43 4.0 % (0.0-4.3) 08/25/18 04:43 1.0 % (0.0-1.8) 08/25/18 04:43 0 % 08/25/18 04:43 0 % 08/25/18 04:43 0 % 08/25/18 04:43 0 % 08/25/18 04:43 Nucleated RBC % Not Reportable 08/25/18 04:43 Seg Neutrophils # 2.6 K/mm3 (1.8-7.7) 08/17/18 07:30 Seg Neutrophils # Man 3.3 K/mm3 (1.8-7.7) 08/25/18 04:43 Band Neutrophils # 0.0 K/mm3 08/25/18 04:43 1.2 K/mm3 (1.2-5.4) 08/25/18 04:43 Abs React Lymphs (Man) 0.0 K/mm3 08/25/18 04:43 0.5 K/mm3 (0.0-0.8) 08/25/18 04:43 0.2 K/mm3 (0.0-0.4) 08/25/18 04:43 0.1 K/mm3 (0.0-0.1) 08/25/18 04:43 0.0 K/mm3 08/25/18 04:43 0.0 K/mm3 08/25/18 04:43 0.0 K/mm3 08/25/18 04:43 Blast Cells # 0.0 K/mm3 08/25/18 04:43 WBC Morphology Not Reportable 08/25/18 04:43 Hypersegmented Neuts Not Reportable 08/25/18 04:43 Hyposegmented Neuts Not Reportable 08/25/18 04:43 Hypogranular Neuts Not Reportable 08/25/18 04:43 Not Reportable 08/25/18 04:43 Not Reportable 08/25/18 04:43 Not Reportable 08/25/18 04:43 Not Reportable 08/25/18 04:43 Not Reportable 08/25/18 04:43 Not Reportable 08/25/18 04:43 Consistent w auto 08/25/18 04:43 Not Reportable 08/25/18 04:43 Plt Clumps, EDTA Not Reportable 08/25/18 04:43 Rare 08/25/18 04:43 Not Reportable 08/25/18 04:43 Not Reportable 08/25/18 04:43 Plt Morphology Comment Not Reportable 08/25/18 04:43 RBC Morphology Not Reportable 08/25/18 04:43 Dimorphic RBCs Not Reportable 08/25/18 04:43 Not Reportable 08/25/18 04:43 Not Reportable 08/25/18 04:43 1+ 08/25/18 04:43 1+ 08/25/18 04:43 Not Reportable 08/25/18 04:43 Not Reportable 08/25/18 04:43 Not Reportable 08/25/18 04:43 Not Reportable 08/25/18 04:43 Not Reportable 08/25/18 04:43 Not Reportable 08/25/18 04:43 Not Reportable 08/25/18 04:43 Not Reportable 08/25/18 04:43 Not Reportable 08/25/18 04:43 Not Reportable 08/25/18 04:43 Not Reportable 08/25/18 04:43 Not Reportable 08/25/18 04:43 Not Reportable 08/25/18 04:43 Not Reportable 08/25/18 04:43 1+ 08/25/18 04:43 Acanthocytes (Spur) Not Reportable 08/25/18 04:43 Rouleaux Not Reportable 08/25/18 04:43 Not Reportable 08/25/18 04:43 Not Reportable 08/25/18 04:43 Not Reportable 08/25/18 04:43 Not Reportable 08/25/18 04:43 Hem Pathologist Commnt No 08/25/18 04:43 463.24 ng/mlDDU (0-234) H 08/15/18 21:24 Sodium 129 mmol/L (137-145) L 09/02/18 06:46 Potassium 4.5 mmol/L (3.6-5.0) 09/02/18 06:46 Chloride 92.4 mmol/L (98-107) L 09/02/18 06:46 Carbon Dioxide 25 mmol/L (22-30) 09/02/18 06:46 16 mmol/L 09/02/18 06:46 BUN 42 mg/dL (9-20) H 09/02/18 06:46 3.5 mg/dL (0.8-1.5) H 09/02/18 06:46 Estimated GFR 18 ml/min 09/02/18 06:46 12 % 09/02/18 06:46 Glucose 138 mg/dL (75-100) H 09/02/18 06:46 POC Glucose 140 (70-105) H 09/02/18 07:55 7.4 % (4-6) H 08/16/18 03:37 Lactic Acid 0.70 mmol/L (0.7-2.0) 08/20/18 04:53 Calcium 8.7 mg/dL (8.4-10.2) 09/02/18 06:46 Phosphorus 3.90 mg/dL (2.5-4.5) 08/25/18 04:43 Iron 30 ug/dL (49-181) L 08/16/18 13:52 TIBC 352 mcg/dL (250-450) 08/16/18 13:52 78.2 ng/mL (13.0-400.0) 08/18/18 08:34 0.40 mg/dL (0.1-1.2) 08/15/18 18:54 AST 25 units/L (5-40) 08/15/18 18:54 ALT 15 units/L (7-56) 08/15/18 18:54 74 units/L (35-129) 08/15/18 18:54 340 units/L (55-170) H 08/15/18 21:24 CK-MB (CK-2) 5.0 ng/mL (0.0-4.0) H 08/15/18 21:24 CK-MB (CK-2) Rel Index 1.4 (0-4) 08/15/18 21:24 0.026 ng/mL (0.00-0.029) 08/15/18 21:24 NT-Pro-B Natriuret Pep 877.6 pg/mL (0-900) 08/17/18 11:13 6.1 g/dL (6.1-8.1) 08/17/18 11:13 6.7 g/dL (6.3-8.2) 08/15/18 18:54 2.9 g/dL (3.8-4.8) L 08/17/18 11:13 0.9 % 08/15/18 18:54 0.4 g/dL (0.2-0.3) H 08/17/18 11:13 0.7 g/dL (0.5-0.9) 08/17/18 11:13 0.5 g/dL (0.2-0.5) 08/17/18 11:13 1.1 g/dL (0.8-1.7) 08/17/18 11:13 Abnorm Protein Band 1 see below 08/17/18 11:13 PEP Interpretation see below H 08/17/18 11:13 Triglycerides 140 mg/dL (2-149) 08/16/18 03:37 Cholesterol 147 mg/dL (50-199) 08/16/18 03:37 88 mg/dL (50-130) 08/16/18 03:37 37 mg/dL (40-59) L 08/16/18 03:37 3.97 % 08/16/18 03:37 Straw (Yellow) 08/17/18 04:00 Clear (Clear) 08/17/18 04:00 7.0 (5.0-7.0) 08/17/18 04:00 Ur Specific [place] 1.006 (1.003-1.030) 08/17/18 04:00 100 mg/dl mg/dL (Negative) 08/17/18 04:00 Neg mg/dL (Negative) 08/17/18 04:00 Neg mg/dL (Negative) 08/17/18 04:00 Neg (Negative) 08/17/18 04:00 Neg (Negative) 08/17/18 04:00 Neg (Negative) 08/17/18 04:00 < 2.0 mg/dL (<2.0) 08/17/18 04:00 Ur Leukocyte Esterase Neg (Negative) 08/17/18 04:00 < 1.0 /HPF (0.0-6.0) 08/17/18 04:00 2.0 /HPF (0.0-6.0) 08/17/18 04:00 U Epithel Cells (Auto) 1.0 /HPF (0-13.0) 08/15/18 18:47 1+ /HPF (Negative) 08/17/18 04:00 Few /HPF 08/15/18 18:47 None seen (None Seen) 08/17/18 04:00 Ur Random Creatinine See scanned report 08/17/18 10:40 U Random Total Protein See scanned report 08/17/18 10:40 800 ml 08/20/18 12:09 56.1 mg/dL (0.1-20.0) H 08/20/18 12:09 Height (in) 68.0 inches 08/20/18 12:09 Weight (lb) 348.8 lbs 08/20/18 12:09 6 08/20/18 12:09 Protein/Creatinin Ratio See scanned report 08/17/18 10:40 132 mmol/L 08/17/18 04:00 106 08/17/18 04:00 79 mg/dL (5-11.8) H 08/17/18 04:00 U Abnormal Prot Band 1 See scanned report 08/17/18 10:40 U Abnormal Prot Band 2 See scanned report 08/17/18 10:40 U Abnormal Prot Band 3 See scanned report 08/17/18 10:40 Immunofix Electrophor see below 08/17/18 11:13 JELANI Screen Negative (Negative) 08/17/18 11:13 Double Strand DNA Ab <1 IU/mL (<=4) 08/17/18 11:13 144 mg/dL (82-185) 08/17/18 11:13 23 mg/dL (15-53) 08/17/18 11:13 RPR Nonreactive (Nonreactive) 08/17/18 11:13 Hepatitis A IgM Ab Non-reactive (NonReactive) 08/17/18 11:13 Hep Bs Antigen Non-reactive (Negative) 08/17/18 11:13 Hep B Core IgM Ab Non-reactive (NonReactive) 08/17/18 11:13 Non-reactive (NonReactive) 08/17/18 11:13 HIV 1&2 Antibody Rapid Non react (Non React) 08/17/18 11:13 Non react (Non React) 08/17/18 11:13 Active Medications - Current Medications Current Medications: Generic Name Dose Route Start Last Admin Trade Name Freq PRN Reason Stop Dose Admin Acetaminophen 650 mg 08/16/18 03:07 08/21/18 21:55 Tylenol PO 650 mg Q4H PRN Administration Pain MILD(1-3)/Fever >100.5/FRAIRE Albuterol 2.5 mg 08/16/18 03:07 Proventil IH Q4HRT PRN Shortness Of Breath Aspirin 81 mg 08/16/18 10:00 09/02/18 09:01 Baby Aspirin PO 81 mg QDAY ARLENE Administration Atorvastatin Calcium 40 mg 08/16/18 22:00 09/01/18 22:36 Lipitor PO 40 mg QHS [facility] Administration Carvedilol 6.25 mg 08/17/18 12:00 09/02/18 09:00 Coreg PO 6.25 mg BID ARLENE Administration Cholecalciferol 5,000 unit 08/16/18 10:00 09/02/18 09:00 Vitamin D3 PO 5,000 unit DAILY ARLENE Administration Dextrose 50 ml 08/16/18 03:13 D50w (25gm) Syringe IV PRN PRN Hypoglycemia Docusate Sodium 100 mg 08/16/18 10:00 09/02/18 09:01 Colace PO 100 mg BID ARLENE Administration Epoetin Keon 10,000 unit 08/18/18 13:00 09/01/18 12:45 Procrit SUB-Q 10,000 unit MOWEFR A[facility]ENE Administration Gabapentin 300 mg 08/16/18 22:00 09/01/18 22:36 Neurontin PO 300 mg QHS A[facility]ENE Administration Heparin Sodium (Porcine) 5,000 unit 08/16/18 10:00 09/02/18 09:01 Heparin SUB-Q 5,000 unit Q12HR ARLENE Administration Hydralazine HCl 50 mg 08/16/18 14:00 09/02/18 06:58 Apresoline PO Not Given Q8HR ARLENE Ceftriaxone Sodium 1 gm in 50 mls @ 100 mls/hr 08/28/18 20:00 09/01/18 14:11 Rocephin/Ns 1 Gm/50 Ml IV 100 mls/hr Q24HR [facility] Administration Protocol Sodium Chloride 100 mls @ 999 mls/hr 09/02/18 09:49 Nacl 0.9% IV JANE PRN Hypotension Insulin Human Lispro 0 unit 08/16/18 07:30 09/02/18 08:30 Humalog SUB-Q Not Given ACHS [facility] Protocol Insulin Human Regular 5 units 08/16/18 07:30 09/02/18 08:57 Humulin R SUB-Q 5 units AC A[facility]ENE Administration Nitroglycerin 0.4 mg 08/16/18 03:07 Nitrostat SL .Q5MIN PRN Chest Pain Ondansetron HCl 4 mg 08/16/18 03:07 08/16/18 16:39 Zofran IV 4 mg Q8H PRN Administration Nausea And Vomiting Oxycodone/Acetaminophen 1 tab 08/16/18 03:07 08/23/18 22:06 Percocet 5/325 PO 1 tab Q6H PRN Administration Pain, Moderate (4-6) Sodium Chloride 10 ml 08/16/18 10:00 09/02/18 09:03 Sodium Chloride Flush Syringe 10 Ml IV 10 ml BID ARLENE Administration Sodium Chloride 10 ml 08/16/18 03:07 08/16/18 06:17 Sodium Chloride Flush Syringe 10 Ml IV 10 ml PRN PRN Administration LINE FLUSH Nutrition/Malnutrition Assess - Dietary Evaluation Nutrition/Malnutrition Findings: Nutrition Notes Start: 08/16/18 09:25 Freq: Status: Active Protocol: Document 08/19/18 14:48 GHASSAN (Rec: 08/19/18 14:54 GHASSAN NGHIA- [id number]) Nutrition Notes Initial or Follow up Brief Note Current Diagnosis CKD(stage I-IV),Diabetes Other Pertinent Diagnosis Fluid retention in scrotum and BLE edema, wounds on toe, heel and leg Current Diet Cardiac/consistent CHO Labs/Tests Na 134 BUN 55 Cr 4.4 Pertinent Medications Reviewed [place] Body Weight (kg) 0 Subjective/Other Information Pt reports good appetite; has been consuming 75-100% of meals. Nutrition Intervention Revisit per MD consult or patient Sign Off request:
--- NOTE | 2018-09-02 13:53 | Progress Note ---
Assessment and Plan Patient waiting to go for dialysis . Patient awake and resting on room air at this time. O2 sat 96%. No acute respiratory distress. Recommend to use O2 2L when he is not on BiPAP. Patient uses BIPAP at night . Pressures . - Patient Problems (1) CHF (congestive heart failure) Current Visit: Yes Status: Acute Qualifiers: Heart failure type: diastolic Heart failure chronicity: acute Qualified Code(s): I50.31 - Acute diastolic (congestive) heart failure Plan to address problem: Management as per cardiology. (2) CKD (chronic kidney disease) Current Visit: Yes Status: Acute Qualifiers: Chronic kidney disease stage: stage 3 (moderate) Qualified Code(s): N18.3 - Chronic kidney disease, stage 3 (moderate) Plan to address problem: Patient is on hemodialysis. Management as per nephrology. (3) HANSEN (dyspnea on exertion) Current Visit: Yes Status: Acute Plan to address problem: Albuterol aerosol treatments q 6 hours prn for shortness of breath. O2 2 litres via nasal canula BIPAP during night time and PRN during day time for shortness of breath. Continue S/C Heparin. (4) Elevated d-dimer Current Visit: Yes Status: Acute Plan to address problem: Venous doppler studies reported negative for DVT. Perfusion lung scan reported low probabily for pulmonary emboli. Continue S/C heparin. (5) Essential hypertension Current Visit: Yes Status: Chronic Plan to address problem: Management as per primary care. (6) Morbid obesity Current Visit: Yes Status: Chronic Plan to address problem: Recommend to loose weight. Exercise and diet. (7) Sleep apnea with use of continuous positive airway pressure (CPAP) Current Visit: Yes Status: Acute Plan to address problem: Continue BIPAP as using at home. Subjective Date of service: 09/02/18 Principal diagnosis: CHF; CKD; HANSEN; Elevated d-dimer; Essential HTN; Morbid obesity; MARBELLA Interval history: Patient waiting to go for dialysis . Patient awake and resting on room air at this time. O2 sat 96%. No acute respiratory distress. Recommend to use O2 2L when he is not on BiPAP. Patient uses BIPAP at night . Pressures . Objective Vital Signs - 12hr 09/02/18 09/02/18 05:56 06:58 Temperature 97.3 F L Pulse Rate 77 77 Respiratory 22 Rate Blood Pressure 105/47 105/47 O2 Sat by Pulse 94 Oximetry Constitutional: no acute distress, alert, other (Morbidly Obese middle aged CM) Eyes: non-icteric ENT: oropharynx moist, other (mallampati 4) Neck: supple, no JVD, other (large neck circumference) Effort: mildly labored Ascultation: Bilateral: diminished breath sounds, rhonchi (scant in bases) Percussion: Bilateral: not dull Cardiovascular: regular rate and rhythm Gastrointestinal: normoactive bowel sounds, soft, non-tender, other (protuberant) Integumentary: cellulitis, other (Cellulitis and wounds in both lower legs.) Extremities: no cyanosis, pink and warm, pulses normal, edema (trace to 1+) Neurologic: normal mental status, non-focal exam, pupils equal and round, CN II- XII normal Psychiatric: mood appropriate, affect normal CBC and BMP: 08/30/18 04:17 09/02/18 06:46 ABG, PT/INR, D-dimer: PT/INR, D-dimer 463.24 ng/mlDDU (0-234) H 08/15/18 21:24 Abnormal lab findings: Abnormal Labs 08/15/18 08/15/18 08/15/18 18:02 18:54 18:54 WBC RBC 3.61 L Hgb 9.8 L Hct 30.1 L MCV MCH 27 L RDW 16.8 H Plt Count [place] % (Auto) 10.7 H Eos % (Auto) 5.9 H Seg Neuts % (Manual) Lymphocytes % (Manual) Monocytes % (Manual) Eosinophils % (Manual) Basophils % (Manual) Seg Neutrophils # Man D-Dimer Sodium Chloride 107.7 H BUN 25 H Creatinine 2.5 H Glucose 159 H POC Glucose 124 H Hemoglobin A1c Calcium Phosphorus Iron Total Creatine Kinase CK-MB (CK-2) Albumin 3.2 L Dlzjq-9-Cdhtmcckp PEP Interpretation HDL Cholesterol Urine Creatinine Urine Total Protein 08/15/18 08/15/18 08/16/18 21:24 21:24 03:37 WBC RBC Hgb Hct MCV MCH RDW Plt Count [place] % (Auto) Eos % (Auto) Seg Neuts % (Manual) Lymphocytes % (Manual) Monocytes % (Manual) Eosinophils % (Manual) Basophils % (Manual) Seg Neutrophils # Man D-Dimer 463.24 H Sodium Chloride BUN Creatinine Glucose POC Glucose Hemoglobin A1c 7.4 H Calcium Phosphorus Iron Total Creatine Kinase 340 H CK-MB (CK-2) 5.0 H Albumin Srtzz-9-Xptxkonrq PEP Interpretation HDL Cholesterol Urine Creatinine Urine Total Protein 08/16/18 08/16/18 08/16/18 03:37 07:54 12:01 WBC RBC Hgb Hct MCV MCH RDW Plt Count [place] % (Auto) Eos % (Auto) Seg Neuts % (Manual) Lymphocytes % (Manual) Monocytes % (Manual) Eosinophils % (Manual) Basophils % (Manual) Seg Neutrophils # Sadi D-Dimer Sodium Chloride BUN Creatinine Glucose POC Glucose 113 H 179 H Hemoglobin A1c Calcium Phosphorus Iron Total Creatine Kinase CK-MB (CK-2) Albumin Ckxye-4-Dqlzayozi PEP Interpretation HDL Cholesterol 37 L Urine Creatinine Urine Total Protein 08/16/18 08/16/18 08/16/18 13:52 17:44 21:21 WBC RBC Hgb Hct MCV MCH RDW Plt Count [place] % (Auto) Eos % (Auto) Seg Neuts % (Manual) Lymphocytes % (Manual) Monocytes % (Manual) Eosinophils % (Manual) Basophils % (Manual) Seg Neutrophils # Sadi D-Natalya Sodium Chloride BUN Creatinine Glucose POC Glucose 221 H 165 H Hemoglobin A1c Calcium Phosphorus Iron 30 L Total Creatine Kinase CK-MB (CK-2) Albumin Ywrvu-4-Dyuucdwyx PEP Interpretation HDL Cholesterol Urine Creatinine Urine Total Protein 08/17/18 08/17/18 08/17/18 04:00 07:30 07:30 WBC RBC Hgb 10.3 L Hct 31.5 L MCV 82 L MCH 27 L RDW 16.8 H Plt Count [place] % (Auto) 14.0 H Eos % (Auto) 6.6 H Seg Neuts % (Manual) Lymphocytes % (Manual) Monocytes % (Manual) Eosinophils % (Manual) Basophils % (Manual) Seg Neutrophils # Sadi D-Dimer Sodium Chloride BUN 32 H Creatinine 2.9 H Glucose 180 H POC Glucose Hemoglobin A1c Calcium Phosphorus Iron Total Creatine Kinase CK-MB (CK-2) Albumin Ubnzm-5-Hcxcpyiau PEP Interpretation HDL Cholesterol Urine Creatinine 22.4 H Urine Total Protein 79 H 08/17/18 08/17/18 08/17/18 07:34 11:13 12:17 WBC RBC Hgb Hct MCV MCH RDW Plt Count [place] % (Auto) Eos % (Auto) Seg Neuts % (Manual) Lymphocytes % (Manual) Monocytes % (Manual) Eosinophils % (Manual) Basophils % (Manual) Seg Neutrophils # Sadi D-Dimer Sodium Chloride BUN Creatinine Glucose POC Glucose 169 H 207 H Hemoglobin A1c Calcium Phosphorus Iron Total Creatine Kinase CK-MB (CK-2) Albumin 2.9 L Kuzro-7-Jkdkputdi 0.4 H PEP Interpretation see below H HDL Cholesterol Urine Creatinine Urine Total Protein 08/17/18 08/17/18 08/18/18 16:36 21:17 07:05 WBC RBC Hgb Hct MCV MCH RDW Plt Count [place] % (Auto) Eos % (Auto) Seg Neuts % (Manual) Lymphocytes % (Manual) Monocytes % (Manual) Eosinophils % (Manual) Basophils % (Manual) Seg Neutrophils # Sadi D-Dimer Sodium 134 L Chloride 95.9 L BUN 43 H Creatinine 3.8 H Glucose 150 H POC Glucose 184 H 209 H Hemoglobin A1c Calcium Phosphorus Iron Total Creatine Kinase CK-MB (CK-2) Albumin Rkovg-8-Chdatdyuz PEP Interpretation HDL Cholesterol Urine Creatinine Urine Total Protein 08/18/18 08/18/18 08/18/18 07:53 08:34 11:53 WBC RBC Hgb 10.8 L Hct 33.8 L MCV MCH 27 L RDW 16.3 H Plt Count [place] % (Auto) Eos % (Auto) Seg Neuts % (Manual) Lymphocytes % (Manual) Monocytes % (Manual) Eosinophils % (Manual) Basophils % (Manual) Seg Neutrophils # Sadi D-Dimer Sodium Chloride BUN Creatinine Glucose POC Glucose 139 H 191 H Hemoglobin A1c Calcium Phosphorus Iron Total Creatine Kinase CK-MB (CK-2) Albumin Ejcic-7-Mjnfmngfx PEP Interpretation HDL Cholesterol Urine Creatinine Urine Total Protein 08/18/18 08/18/18 08/19/18 15:54 20:49 05:28 WBC RBC Hgb 9.7 L Hct 30.1 L MCV 82 L MCH 26 L RDW 16.6 H Plt Count 136 L [place] % (Auto) Eos % (Auto) Seg Neuts % (Manual) Lymphocytes % (Manual) Monocytes % (Manual) Eosinophils % (Manual) Basophils % (Manual) Seg Neutrophils # Sadi D-Dimer Sodium Chloride BUN Creatinine Glucose POC Glucose 150 H 138 H Hemoglobin A1c Calcium Phosphorus Iron Total Creatine Kinase CK-MB (CK-2) Albumin Rpwfv-6-Nsareixjd PEP Interpretation HDL Cholesterol Urine Creatinine Urine Total Protein 08/19/18 08/19/18 08/19/18 05:28 07:43 11:57 WBC RBC Hgb Hct MCV MCH RDW Plt Count [place] % (Auto) Eos % (Auto) Seg Neuts % (Manual) Lymphocytes % (Manual) Monocytes % (Manual) Eosinophils % (Manual) Basophils % (Manual) Seg Neutrophils # Man D-Dimer Sodium 134 L Chloride 96.2 L BUN 55 H Creatinine 4.4 H Glucose 118 H POC Glucose 162 H 280 H Hemoglobin A1c Calcium Phosphorus Iron Total Creatine Kinase CK-MB (CK-2) Albumin Avynd-0-Wplvuseax PEP Interpretation HDL Cholesterol Urine Creatinine Urine Total Protein 08/19/18 08/19/18 08/20/18 15:41 21:44 04:53 WBC 3.5 L RBC 3.58 L Hgb 9.4 L Hct 29.5 L MCV 83 L MCH 26 L RDW 16.4 H Plt Count 121 L [place] % (Auto) Eos % (Auto) Seg Neuts % (Manual) Lymphocytes % (Manual) Monocytes % (Manual) 16.0 H Eosinophils % (Manual) Basophils % (Manual) 3.0 H Seg Neutrophils # Man 1.6 L D-Dimer Sodium Chloride BUN Creatinine Glucose POC Glucose 167 H 234 H Hemoglobin A1c Calcium Phosphorus Iron Total Creatine Kinase CK-MB (CK-2) Albumin Xqzxy-2-Hnoyyvfsz PEP Interpretation HDL Cholesterol Urine Creatinine Urine Total Protein 08/20/18 08/20/18 08/20/18 04:53 08:13 12:09 WBC RBC Hgb Hct MCV MCH RDW Plt Count [place] % (Auto) Eos % (Auto) Seg Neuts % (Manual) Lymphocytes % (Manual) Monocytes % (Manual) Eosinophils % (Manual) Basophils % (Manual) Seg Neutrophils # Man D-Dimer Sodium 136 L Chloride BUN 57 H Creatinine 3.3 H Glucose 136 H POC Glucose 124 H Hemoglobin A1c Calcium Phosphorus 5.50 H Iron Total Creatine Kinase CK-MB (CK-2) Albumin Shxdq-9-Rytjlunxf PEP Interpretation HDL Cholesterol Urine Creatinine 56.1 H Urine Total Protein 08/20/18 08/20/18 08/20/18 12:49 18:26 20:53 WBC RBC Hgb Hct MCV MCH RDW Plt Count [place] % (Auto) Eos % (Auto) Seg Neuts % (Manual) Lymphocytes % (Manual) Monocytes % (Manual) Eosinophils % (Manual) Basophils % (Manual) Seg Neutrophils # Sadi D-Dimer Sodium Chloride BUN Creatinine Glucose POC Glucose 145 H 175 H 184 H Hemoglobin A1c Calcium Phosphorus Iron Total Creatine Kinase CK-MB (CK-2) Albumin Pcfoq-8-Nkvwczdfy PEP Interpretation HDL Cholesterol Urine Creatinine Urine Total Protein 08/21/18 08/21/18 08/21/18 04:28 04:28 08:58 WBC 3.8 L RBC 3.42 L Hgb 9.2 L Hct 28.4 L MCV 83 L MCH 27 L RDW 16.4 H Plt Count 126 L [place] % (Auto) Eos % (Auto) Seg Neuts % (Manual) Lymphocytes % (Manual) Monocytes % (Manual) 15.0 H Eosinophils % (Manual) Basophils % (Manual) Seg Neutrophils # Sadi D-Dimer Sodium 134 L Chloride 96.5 L BUN 59 H Creatinine 3.4 H Glucose 190 H POC Glucose 159 H Hemoglobin A1c Calcium Phosphorus 5.10 H Iron Total Creatine Kinase CK-MB (CK-2) Albumin Wtqlz-3-Shgpeklff PEP Interpretation HDL Cholesterol Urine Creatinine Urine Total Protein 08/21/18 08/21/18 08/21/18 12:25 17:10 21:43 WBC RBC Hgb Hct MCV MCH RDW Plt Count [place] % (Auto) Eos % (Auto) Seg Neuts % (Manual) Lymphocytes % (Manual) Monocytes % (Manual) Eosinophils % (Manual) Basophils % (Manual) Seg Neutrophils # Sadi D-Dimer Sodium Chloride BUN Creatinine Glucose POC Glucose 222 H 152 H 150 H Hemoglobin A1c Calcium Phosphorus Iron Total Creatine Kinase CK-MB (CK-2) Albumin Vuwcv-5-Rejjujhmc PEP Interpretation HDL Cholesterol Urine Creatinine Urine Total Protein 08/22/18 08/22/18 08/22/18 04:50 04:51 08:08 WBC 3.7 L RBC 3.37 L Hgb 9.0 L Hct 27.8 L MCV 83 L MCH 27 L RDW 16.9 H Plt Count 124 L [place] % (Auto) Eos % (Auto) Seg Neuts % (Manual) Lymphocytes % (Manual) Monocytes % (Manual) 13.0 H Eosinophils % (Manual) 11.0 H Basophils % (Manual) Seg Neutrophils # Man 1.6 L D-Dimer Sodium 135 L Chloride 97.4 L BUN 64 H Creatinine 3.5 H Glucose 114 H POC Glucose 117 H Hemoglobin A1c Calcium Phosphorus 4.90 H Iron Total Creatine Kinase CK-MB (CK-2) Albumin Whjjv-3-Wlvznchra PEP Interpretation HDL Cholesterol Urine Creatinine Urine Total Protein 08/22/18 08/22/18 08/23/18 14:48 21:36 05:09 WBC 4.3 L RBC 3.60 L Hgb 9.6 L Hct 29.6 L MCV 82 L MCH 27 L RDW 16.6 H Plt Count 134 L [place] % (Auto) Eos % (Auto) Seg Neuts % (Manual) 38.0 L Lymphocytes % (Manual) 51.0 H Monocytes % (Manual) 8.0 H Eosinophils % (Manual) Basophils % (Manual) Seg Neutrophils # Man 1.6 L D-Dimer Sodium Chloride BUN Creatinine Glucose POC Glucose 211 H 268 H Hemoglobin A1c Calcium Phosphorus Iron Total Creatine Kinase CK-MB (CK-2) Albumin Eesru-6-Rkqzrmnjh PEP Interpretation HDL Cholesterol Urine Creatinine Urine Total Protein 08/23/18 08/23/18 08/23/18 05:09 07:44 14:02 WBC RBC Hgb Hct MCV MCH RDW Plt Count [place] % (Auto) Eos % (Auto) Seg Neuts % (Manual) Lymphocytes % (Manual) Monocytes % (Manual) Eosinophils % (Manual) Basophils % (Manual) Seg Neutrophils # Man D-Dimer Sodium Chloride BUN 45 H Creatinine 2.6 H Glucose 174 H POC Glucose 240 H 161 H Hemoglobin A1c Calcium Phosphorus Iron Total Creatine Kinase CK-MB (CK-2) Albumin Cnxmj-0-Lvjyvgmtr PEP Interpretation HDL Cholesterol Urine Creatinine Urine Total Protein 08/23/18 08/23/18 08/24/18 17:33 20:32 05:09 WBC RBC Hgb Hct MCV MCH RDW Plt Count [place] % (Auto) Eos % (Auto) Seg Neuts % (Manual) Lymphocytes % (Manual) Monocytes % (Manual) Eosinophils % (Manual) Basophils % (Manual) Seg Neutrophils # Man D-Dimer Sodium 135 L Chloride 97.4 L BUN 38 H Creatinine 2.3 H Glucose 183 H POC Glucose 217 H 208 H Hemoglobin A1c Calcium Phosphorus Iron Total Creatine Kinase CK-MB (CK-2) Albumin Tmbpk-7-Uvaihtsgq PEP Interpretation HDL Cholesterol Urine Creatinine Urine Total Protein 08/24/18 08/24/18 08/24/18 07:49 11:32 16:44 WBC RBC Hgb Hct MCV MCH RDW Plt Count [place] % (Auto) Eos % (Auto) Seg Neuts % (Manual) Lymphocytes % (Manual) Monocytes % (Manual) Eosinophils % (Manual) Basophils % (Manual) Seg Neutrophils # Man D-Dimer Sodium Chloride BUN Creatinine Glucose POC Glucose 171 H 271 H 168 H Hemoglobin A1c Calcium Phosphorus Iron Total Creatine Kinase CK-MB (CK-2) Albumin Vilhu-2-Mcmyssmph PEP Interpretation HDL Cholesterol Urine Creatinine Urine Total Protein 08/24/18 08/25/18 08/25/18 20:54 04:43 04:43 WBC RBC 3.41 L Hgb 9.1 L Hct 28.0 L MCV 82 L MCH 27 L RDW 17.0 H Plt Count 133 L [place] % (Auto) Eos % (Auto) Seg Neuts % (Manual) Lymphocytes % (Manual) Monocytes % (Manual) 10.0 H Eosinophils % (Manual) Basophils % (Manual) Seg Neutrophils # Sadi D-Dimer Sodium 136 L Chloride BUN 44 H Creatinine 2.6 H Glucose 193 H POC Glucose 214 H Hemoglobin A1c Calcium Phosphorus Iron Total Creatine Kinase CK-MB (CK-2) Albumin Deshk-9-Axmtxizqw PEP Interpretation HDL Cholesterol Urine Creatinine Urine Total Protein 08/25/18 08/25/18 08/25/18 08:04 13:43 16:39 WBC RBC Hgb Hct MCV MCH RDW Plt Count [place] % (Auto) Eos % (Auto) Seg Neuts % (Manual) Lymphocytes % (Manual) Monocytes % (Manual) Eosinophils % (Manual) Basophils % (Manual) Seg Neutrophils # Sadi D-Dimer Sodium Chloride BUN Creatinine Glucose POC Glucose 167 H 193 H 249 H Hemoglobin A1c Calcium Phosphorus Iron Total Creatine Kinase CK-MB (CK-2) Albumin Mmgel-6-Vpgomiioy PEP Interpretation HDL Cholesterol Urine Creatinine Urine Total Protein 08/25/18 08/26/18 08/26/18 21:15 04:56 07:21 WBC RBC Hgb Hct MCV MCH RDW Plt Count [place] % (Auto) Eos % (Auto) Seg Neuts % (Manual) Lymphocytes % (Manual) Monocytes % (Manual) Eosinophils % (Manual) Basophils % (Manual) Seg Neutrophils # Man D-Dimer Sodium 133 L Chloride 96.3 L BUN 32 H Creatinine 2.1 H Glucose 186 H POC Glucose 176 H 183 H Hemoglobin A1c Calcium 8.3 L Phosphorus Iron Total Creatine Kinase CK-MB (CK-2) Albumin Eeota-2-Vwsmuznvb PEP Interpretation HDL Cholesterol Urine Creatinine Urine Total Protein 08/26/18 08/26/18 08/26/18 14:34 16:34 21:07 WBC RBC Hgb Hct MCV MCH RDW Plt Count [place] % (Auto) Eos % (Auto) Seg Neuts % (Manual) Lymphocytes % (Manual) Monocytes % (Manual) Eosinophils % (Manual) Basophils % (Manual) Seg Neutrophils # Man D-Dimer Sodium Chloride BUN Creatinine Glucose POC Glucose 165 H 206 H 185 H Hemoglobin A1c Calcium Phosphorus Iron Total Creatine Kinase CK-MB (CK-2) Albumin Rdvpu-7-Izxalkwoz PEP Interpretation HDL Cholesterol Urine Creatinine Urine Total Protein 08/27/18 08/27/18 08/27/18 07:34 08:23 16:31 WBC RBC Hgb Hct MCV MCH RDW Plt Count [place] % (Auto) Eos % (Auto) Seg Neuts % (Manual) Lymphocytes % (Manual) Monocytes % (Manual) Eosinophils % (Manual) Basophils % (Manual) Seg Neutrophils # Man D-Dimer Sodium 135 L Chloride 97.3 L BUN 28 H Creatinine 2.4 H Glucose 130 H POC Glucose 136 H 229 H Hemoglobin A1c Calcium 8.0 L Phosphorus Iron Total Creatine Kinase CK-MB (CK-2) Albumin Truxw-3-Cftxvwrjj PEP Interpretation HDL Cholesterol Urine Creatinine Urine Total Protein 08/27/18 08/28/18 08/28/18 21:32 04:40 07:48 WBC RBC Hgb Hct MCV MCH RDW Plt Count [place] % (Auto) Eos % (Auto) Seg Neuts % (Manual) Lymphocytes % (Manual) Monocytes % (Manual) Eosinophils % (Manual) Basophils % (Manual) Seg Neutrophils # Man D-Dimer Sodium 135 L Chloride 97.9 L BUN 25 H Creatinine 2.2 H Glucose 118 H POC Glucose 142 H 120 H Hemoglobin A1c Calcium Phosphorus Iron Total Creatine Kinase CK-MB (CK-2) Albumin Kmmmm-4-Lvxbeclue PEP Interpretation HDL Cholesterol Urine Creatinine Urine Total Protein 08/28/18 08/28/18 08/29/18 17:11 20:52 04:29 WBC RBC Hgb Hct MCV MCH RDW Plt Count [place] % (Auto) Eos % (Auto) Seg Neuts % (Manual) Lymphocytes % (Manual) Monocytes % (Manual) Eosinophils % (Manual) Basophils % (Manual) Seg Neutrophils # Man D-Dimer Sodium 134 L Chloride 93.3 L BUN 36 H Creatinine 2.9 H Glucose 187 H POC Glucose 209 H 188 H Hemoglobin A1c Calcium Phosphorus Iron Total Creatine Kinase CK-MB (CK-2) Albumin Sazvs-6-Vonnqhbrv PEP Interpretation HDL Cholesterol Urine Creatinine Urine Total Protein 08/29/18 08/29/18 08/29/18 08:21 16:54 22:22 WBC RBC Hgb Hct MCV MCH RDW Plt Count [place] % (Auto) Eos % (Auto) Seg Neuts % (Manual) Lymphocytes % (Manual) Monocytes % (Manual) Eosinophils % (Manual) Basophils % (Manual) Seg Neutrophils # Man D-Dimer Sodium Chloride BUN Creatinine Glucose POC Glucose 144 H 277 H 240 H Hemoglobin A1c Calcium Phosphorus Iron Total Creatine Kinase CK-MB (CK-2) Albumin Efkwp-7-Wrawjuryh PEP Interpretation HDL Cholesterol Urine Creatinine Urine Total Protein 08/30/18 08/30/18 08/30/18 04:17 04:17 07:56 WBC RBC 3.64 L Hgb 9.8 L Hct 29.6 L MCV 81 L MCH 27 L RDW 16.8 H Plt Count [place] % (Auto) Eos % (Auto) Seg Neuts % (Manual) Lymphocytes % (Manual) Monocytes % (Manual) Eosinophils % (Manual) Basophils % (Manual) Seg Neutrophils # Man D-Dimer Sodium 133 L Chloride 96.4 L BUN 33 H Creatinine 2.9 H Glucose 142 H POC Glucose 134 H Hemoglobin A1c Calcium Phosphorus Iron Total Creatine Kinase CK-MB (CK-2) Albumin Rybgt-0-Ynfzwqdwl PEP Interpretation HDL Cholesterol Urine Creatinine Urine Total Protein 08/30/18 08/30/18 08/31/18 17:11 20:58 07:57 WBC RBC Hgb Hct MCV MCH RDW Plt Count [place] % (Auto) Eos % (Auto) Seg Neuts % (Manual) Lymphocytes % (Manual) Monocytes % (Manual) Eosinophils % (Manual) Basophils % (Manual) Seg Neutrophils # Man D-Dimer Sodium Chloride BUN Creatinine Glucose POC Glucose 223 H 238 H 143 H Hemoglobin A1c Calcium Phosphorus Iron Total Creatine Kinase CK-MB (CK-2) Albumin Glbho-4-Bwyuaaybq PEP Interpretation HDL Cholesterol Urine Creatinine Urine Total Protein 08/31/18 08/31/18 08/31/18 09:06 11:13 16:45 WBC RBC Hgb Hct MCV MCH RDW Plt Count [place] % (Auto) Eos % (Auto) Seg Neuts % (Manual) Lymphocytes % (Manual) Monocytes % (Manual) Eosinophils % (Manual) Basophils % (Manual) Seg Neutrophils # Man D-Dimer Sodium 130 L Chloride 87.5 L BUN 47 H Creatinine 3.5 H Glucose 214 H POC Glucose 223 H 320 H Hemoglobin A1c Calcium Phosphorus Iron Total Creatine Kinase CK-MB (CK-2) Albumin Kopqr-6-Xncogutfh PEP Interpretation HDL Cholesterol Urine Creatinine Urine Total Protein 08/31/18 09/01/18 09/01/18 21:48 05:52 07:25 WBC RBC Hgb Hct MCV MCH RDW Plt Count [place] % (Auto) Eos % (Auto) Seg Neuts % (Manual) Lymphocytes % (Manual) Monocytes % (Manual) Eosinophils % (Manual) Basophils % (Manual) Seg Neutrophils # Sadi D-Dimer Sodium 129 L Chloride 91.1 L BUN 57 H Creatinine 3.5 H Glucose 138 H POC Glucose 197 H 133 H Hemoglobin A1c Calcium Phosphorus Iron Total Creatine Kinase CK-MB (CK-2) Albumin Ujlkc-0-Icjtmfhpv PEP Interpretation HDL Cholesterol Urine Creatinine Urine Total Protein 09/01/18 09/01/18 09/01/18 14:47 16:56 21:24 WBC RBC Hgb Hct MCV MCH RDW Plt Count [place] % (Auto) Eos % (Auto) Seg Neuts % (Manual) Lymphocytes % (Manual) Monocytes % (Manual) Eosinophils % (Manual) Basophils % (Manual) Seg Neutrophils # Sadi D-Dimer Sodium Chloride BUN Creatinine Glucose POC Glucose 230 H 264 H 233 H Hemoglobin A1c Calcium Phosphorus Iron Total Creatine Kinase CK-MB (CK-2) Albumin Qixzt-6-Vrsvoguen PEP Interpretation HDL Cholesterol Urine Creatinine Urine Total Protein 09/02/18 09/02/18 09/02/18 06:46 07:55 11:47 WBC RBC Hgb Hct MCV MCH RDW Plt Count [place] % (Auto) Eos % (Auto) Seg Neuts % (Manual) Lymphocytes % (Manual) Monocytes % (Manual) Eosinophils % (Manual) Basophils % (Manual) Seg Neutrophils # Man D-Dimer Sodium 129 L Chloride 92.4 L BUN 42 H Creatinine 3.5 H Glucose 138 H POC Glucose 140 H 186 H Hemoglobin A1c Calcium Phosphorus Iron Total Creatine Kinase CK-MB (CK-2) Albumin Twppe-4-Vrgkjlrov PEP Interpretation HDL Cholesterol Urine Creatinine Urine Total Protein Allied health notes reviewed: nursing
[2018-09-02] MEDS ORDERED: NACL 0.9 (PRIMING MACHINE ONLY DIALYSIS) MC ONE (18:08)
[2018-09-02] MEDS: ROCEPHIN/NS 1 GM/50 ML 1 GM/50 ML BAG IV SCH (22:20)
[2018-09-02] MEDS: NEURONTIN PO SCH (22:20)
[2018-09-03] MEDS: APRESOLINE PO SCH ×3 (05:50→22:19)
[2018-09-03] MEDS: HumuLIN R SUB-Q SCH ×3 (09:05→17:33)
[2018-09-03] MEDS: HumaLOG SUB-Q SCH ×4 (09:05→22:21)
[2018-09-03] MEDS: VITAMIN D3 PO SCH (09:37)
[2018-09-03] MEDS: BABY ASPIRIN PO SCH (09:37)
[2018-09-03] MEDS: COLACE PO SCH ×2 (09:38→22:19)
[2018-09-03] MEDS: HEPARIN SUB-Q SCH ×2 (09:38→22:20)
[2018-09-03] MEDS: SODIUM CHLORIDE FLUSH SYRINGE 10 ML IV SCH ×2 (09:38→22:20)
--- NOTE | 2018-09-03 11:04 | Discharge Summary ---
Providers - Providers Date of Admission: 08/16/18 03:07 Date of discharge: 09/03/18 Attending physician: FERCHO SANCHEZ 08/16/18 03:17 Consult to Wound/ET Nurse [CONS] Routine Reason For Exam: wound eval 08/16/18 04:14 Consult to Dietitian/Nutrition [CONS] Routine Physician Instructions: Reason For Exam: Reason for Consult: Malnutrition 08/16/18 08:53 Consult to Physician [CONS] Routine Comment: Consulting Provider: WAYNE RENDON Physician Instructions: Reason For Exam: proteinuria, renal failure 08/17/18 09:45 Consult to Physician [CONS] Routine Comment: Consulting Provider: JOHNNA JAIN Physician Instructions: Reason For Exam: Evaluate for VTE 08/19/18 15:14 Physical Therapy Evaluation and Treat [CONS] Routine Comment: Reason For Exam: gen weakness 08/19/18 15:15 Occupational Therapy Evaluate and Treat [CONS] Routine Comment: Reason For Exam: gen weakness 08/22/18 11:23 Consult to Physician [CONS] Routine Comment: Consulting Provider: KAMERON GUAJARDO Physician Instructions: Reason For Exam: permcath placement Primary care physician: VIOLETTA PATTON Hospitalization Reason for admission: sob Condition: Critical Hospital course: Patient is a 58-year-old male with history of hypertension, diabetes, HLD, CKD stage III who presented to [facility] ED with c/o bilateral lower extremity swelling and shortness of breath. Pt's scrotum was swollen obstructing view of his penis. D-dimer was slightly elevated at 463.24. VQ scan was found to be negative. CK-MB elevated at 5.0; troponin negative. The patient was admitted with diagnoses of acute heart failure with preserved EF. The patient was seen by cardiology and nephrology consultation. 2D ECHO revealed Global LV systolic function as normal, estimated EF was 55-60%; abnormal LV diastolic dysfunction, mild to moderate concentric LV hypertrophy, trace mr, tr, RVSP calculated at 57 mmHg. the patient was also dagnosed with acute on CKD and eventually initiated on dialysis during this hospitalization 08/22/18. Nephrology worked up the patient for the renal failure and found Secondary GN workup was negative. Renal ultrasound on 08/16/18- Chronic medical renal disease. No Hydronephrosis.The acute diastolic CHF improved with dialysis. After several dialysis sessions, nephrology has determined he needs to be on jail dialysis. He is medically stable, awaiting arrangement for dialysis. He was planning to move to [place] so case management looking for dialysis center in [place]. Once outpatient hemodialysis has been arranged patient will be discharged. Dedicated discharge time 32 minutes. Disposition: [id number] TO HOME OR SELFCARE Time spent for discharge: 32 - Discharge Diagnoses (1) Acute heart failure with preserved ejection fraction Status: Acute (2) Acute kidney injury superimposed on CKD Status: Acute (3) Acute on chronic renal failure Status: Acute (4) Anasarca Status: Acute (5) Anemia Status: Acute Qualifiers: Anemia type: unspecified type Qualified Code(s): D64.9 - Anemia, unspecified (6) CKD (chronic kidney disease) Status: Acute Qualifiers: Chronic kidney disease stage: stage 3 (moderate) Qualified Code(s): N18.3 - Chronic kidney disease, stage 3 (moderate) (7) Elevated d-dimer Status: Acute (8) Essential hypertension Status: Chronic (9) Hyperlipemia, mixed Status: Chronic (10) Morbid obesity Status: Chronic (11) MARBELLA (obstructive sleep apnea) Status: Chronic Core Measure Documentation - Palliative Care Palliative Care/ Comfort Measures: Not Applicable - Core Measures Any of the following diagnoses?: none Exam - Constitutional Vitals: Temp Pulse Resp BP Pulse Ox 98.2 F 61 18 105/55 94 09/03/18 05:12 09/03/18 05:50 09/03/18 05:45 09/03/18 05:50 09/03/18 05:45 General appearance: Present: no acute distress, well-nourished - EENT Eyes: Present: PERRL ENT: hearing intact, clear oral mucosa - Neck Neck: Present: supple, normal ROM - Respiratory Respiratory effort: normal Respiratory: bilateral: CTA - Cardiovascular Heart Sounds: Present: S1 & S2. Absent: rub, click - Extremities Extremities: pulses symmetrical, No edema Peripheral Pulses: within normal limits - Abdominal General gastrointestinal: Present: soft, non-tender, non-distended, normal bowel sounds Male genitourinary: Present: normal - Integumentary Integumentary: Present: clear, warm, dry - Musculoskeletal Musculoskeletal: gait normal, strength equal bilaterally - Psychiatric Psychiatric: appropriate mood/affect, intact judgment & insight - Neurologic Neurologic: CNII-XII intact, moves all extremities Plan Activity: advance as tolerated Weight Bearing Status: Weight Bear as Tolerated Follow up with: VIOLETTA PATTON MD [Primary Care Provider] - 7 Days Prescriptions: hydrALAZINE [Apresoline TAB] 50 mg PO Q8HR #90 tablet Loratadine [Claritin] 10 mg PO DAILY PRN #30 tablet PRN Reason: Allergy Symptoms Carvedilol [Coreg] 6.25 mg PO BID #60 tablet Insulin Regular, Human [HumuLIN R] 5 units SUB-Q AC 30 Days units AtorvaSTATin [Lipitor] 40 mg PO QHS #40 tablet Melatonin [Melatonin 3MG TAB] 3 mg PO QHS #30 tablet Gabapentin [Neurontin] 300 mg PO QHS #30 capsule Omeprazole 20 mg PO DAILY PRN #30 capsule. PRN Reason: Nausea oxyCODONE /ACETAMINOPHEN [Percocet 5/325 mg] 1 tab PO Q6H PRN #8 tablet PRN Reason: Pain, Moderate (4-6) Epoetin Keon 10,000 Unit [Procrit] 10,000 unit SUB-Q MOWEFR 30 Days vial Cholecalciferol (Vitamin D3) [Vitamin D3 5,000 UNIT] 5,000 unit PO DAILY #30 capsule
--- NOTE | 2018-09-03 12:24 | Progress Note ---
Assessment and Plan Severe renal failure, likely ESRD, dialysis dependent: -Renal function reviewed. Serum creatinine 3.5, GFR 18 ml/min, dialysis dependent -Hemodialysis today for UF and clearance -Secondary GN workup was negative -Renal ultrasound on 08/16/18- Chronic medical renal disease. No Hydronephrosis. -No ACEI or ARB due to advanced renal failure -Renally dose all medications -Avoid Nephrotoxic agents -Strict I/O's monitoring -Mckeon Catheter: None present -Patient awaiting placement to [facility] Congestive Diastolic heart failure -Echo- LVEF is 55-60% -S/P IV Lasix -UF with HD -Cardiology onboard Anemia of chronic disease due to CKD: -On Epogen 10,000 units SQ every M,W,F -Monitor H/H Essential Hypertension: - Continue on current regimen - Adjust medications as needed Diabetes Mellitus type 2 on insulin: -On insulin as per primary team Subjective Date of service: 09/03/18 Principal diagnosis: CHF; CKD; HANSEN; Elevated d-dimer; Essential HTN; Morbid obesity; MARBELLA Interval history: Patient seen sitting up in chair in room. Case management in room and shared wit h patient that his insurance is not accepted outside of [place]. Plan now is for patient to stay with friend in [place] and case management will try to find an accepting [facility] in [place] close to where patient will be staying. Objective - Vital Signs Vital signs: Vital Signs - 12hr 09/03/18 09/03/18 09/03/18 05:12 05:45 05:50 Temperature 98.2 F Pulse Rate 69 61 61 Respiratory 20 18 Rate Blood Pressure 82/40 105/55 105/55 O2 Sat by Pulse 95 94 Oximetry 09/03/18 09/03/18 09/03/18 10:15 10:30 10:45 Temperature 98.3 F Pulse Rate 72 71 54 L Respiratory 16 Rate Blood Pressure 119/81 121/60 99/36 O2 Sat by Pulse Oximetry 09/03/18 09/03/18 09/03/18 10:50 11:00 11:15 Temperature Pulse Rate 71 71 71 Respiratory Rate Blood Pressure 118/64 110/64 108/55 O2 Sat by Pulse Oximetry 09/03/18 09/03/18 11:30 11:45 Temperature Pulse Rate 71 69 Respiratory Rate Blood Pressure 123/66 114/65 O2 Sat by Pulse Oximetry - General Appearance General appearance: well-developed, appears stated age, fatigue EENT: ATNC, PERRL, hearing intact, vision intact Neck: no JVD, supple Respiratory: Present: Decreased Breath Sounds Cardiology: regular, S1S2 Gastrointestinal: normoactive bowel sounds Integumentary: warm and dry, chronic venous stasis Neurologic: alert and oriented x3 Musculoskeletal: joint swelling, other (2-3+ edema to BLE) - Lab 08/30/18 04:17 09/02/18 06:46 Most recent lab results Calcium 8.7 mg/dL (8.4-10.2) 09/02/18 06:46 Phosphorus 3.90 mg/dL (2.5-4.5) 08/25/18 04:43 56.1 mg/dL (0.1-20.0) H 08/20/18 12:09 132 mmol/L 08/17/18 04:00 79 mg/dL (5-11.8) H 08/17/18 04:00 Medications & Allergies - Medications Allergies/Adverse Reactions: Allergies canagliflozin [From Invokana] Allergy (Verified 08/15/18 17:49) Unknown IV CONTRAST DYE Allergy (Uncoded 08/15/18 17:49) Unknown Home Medications: Home Medications Medication Instructions Recorded Confirmed Last Taken Type Doxylamine Succinate [Unisom] 25 mg PO QHS 08/16/18 08/16/18 Unknown History Niacin [Niacor] 500 mg PO DAILY 08/16/18 08/16/18 Unknown History Triamcinolone Acetonide [Nasacort 10.8 ml NS DAILY 08/16/18 08/16/18 Unknown History SPRAY] Aspirin [Aspirin BABY CHEW TAB] 81 mg PO QDAY tab.chew 09/03/18 Unknown Rx AtorvaSTATin [Lipitor] 40 mg PO QHS #40 tablet 09/03/18 Unknown Rx Carvedilol [Coreg] 6.25 mg PO BID #60 tablet 09/03/18 Unknown Rx Cholecalciferol (Vitamin D3) 5,000 unit PO DAILY #30 capsule 09/03/18 Unknown Rx [Vitamin D3 5,000 UNIT] Epoetin Keon 10,000 Unit [Procrit] 10,000 unit SUB-Q MOWEFR 30 Days 09/03/18 Unknown Rx vial Gabapentin [Neurontin] 300 mg PO QHS #30 capsule 09/03/18 Unknown Rx Insulin Regular, Human [HumuLIN R] 5 units SUB-Q AC 30 Days units 09/03/18 Unknown Rx Lispro Insulin [HumaLOG] 0 unit SUB-Q ACHS units 09/03/18 Unknown Rx Loratadine [Claritin] 10 mg PO DAILY PRN #30 tablet 09/03/18 Unknown Rx Melatonin [Melatonin 3MG TAB] 3 mg PO QHS #30 tablet 09/03/18 Unknown Rx Nitroglycerin [Nitrostat] 0.4 mg SL .Q5MIN PRN tablet 09/03/18 Unknown Rx Omeprazole 20 mg PO DAILY PRN #30 capsule. 09/03/18 Unknown Rx hydrALAZINE [Apresoline TAB] 50 mg PO Q8HR #90 tablet 09/03/18 Unknown Rx oxyCODONE /ACETAMINOPHEN [Percocet 1 tab PO Q6H PRN #8 tablet 09/03/18 Unknown Rx 5/325 mg] Active Medications: Generic Name Dose Route Start Last Admin Trade Name Freq PRN Reason Stop Dose Admin Acetaminophen 650 mg 08/16/18 03:07 08/21/18 21:55 Tylenol PO 650 mg Q4H PRN Administration Pain MILD(1-3)/Fever >100.5/FRAIRE Albuterol 2.5 mg 08/16/18 03:07 Proventil IH Q4HRT PRN Shortness Of Breath Aspirin 81 mg 08/16/18 10:00 09/03/18 09:37 Baby Aspirin PO 81 mg QDAY ARLENE Administration Atorvastatin Calcium 40 mg 08/16/18 22:00 09/02/18 22:20 Lipitor PO 40 mg QHS ARLENE Administration Carvedilol 6.25 mg 08/17/18 12:00 09/02/18 22:20 Coreg PO 6.25 mg BID ARLENE Administration Cholecalciferol 5,000 unit 08/16/18 10:00 09/03/18 09:37 Vitamin D3 PO 5,000 unit DAILY ARLENE Administration Dextrose 50 ml 08/16/18 03:13 D50w (25gm) Syringe IV PRN PRN Hypoglycemia Docusate Sodium 100 mg 08/16/18 10:00 09/03/18 09:38 Colace PO 100 mg BID ARLENE Administration Epoetin Keon 10,000 unit 08/18/18 13:00 09/01/18 12:45 Procrit SUB-Q 10,000 unit MOWEFR ARLENE Administration Gabapentin 300 mg 08/16/18 22:00 09/02/18 22:20 Neurontin PO 300 mg QHS ARLENE Administration Heparin Sodium (Porcine) 5,000 unit 08/16/18 10:00 09/03/18 09:38 Heparin SUB-Q 5,000 unit Q12HR ARLENE Administration Hydralazine HCl 50 mg 08/16/18 14:00 09/03/18 05:50 Apresoline PO Not Given Q8HR [facility] Ceftriaxone Sodium 1 gm in 50 mls @ 100 mls/hr 08/28/18 20:00 09/02/18 22:20 Rocephin/Ns 1 Gm/50 Ml IV 100 mls/hr Q24HR [facility] Administration Protocol Sodium Chloride 100 mls @ 999 mls/hr 09/02/18 09:49 Nacl 0.9% IV JANE PRN Hypotension Insulin Human Lispro 0 unit 08/16/18 07:30 09/03/18 09:05 Humalog SUB-Q Not Given ACHS [facility] Protocol Insulin Human Regular 5 units 08/16/18 07:30 09/03/18 09:05 Humulin R SUB-Q 5 units AC ARLENE Administration Nitroglycerin 0.4 mg 08/16/18 03:07 Nitrostat SL .Q5MIN PRN Chest Pain Ondansetron HCl 4 mg 08/16/18 03:07 08/16/18 16:39 Zofran IV 4 mg Q8H PRN Administration Nausea And Vomiting Oxycodone/Acetaminophen 1 tab 08/16/18 03:07 08/23/18 22:06 Percocet 5/325 PO 1 tab Q6H PRN Administration Pain, Moderate (4-6) Sodium Chloride 10 ml 08/16/18 10:00 09/03/18 09:38 Sodium Chloride Flush Syringe 10 Ml IV 10 ml BID ARLENE Administration Sodium Chloride 10 ml 08/16/18 03:07 08/16/18 06:17 Sodium Chloride Flush Syringe 10 Ml IV 10 ml PRN PRN Administration LINE FLUSH
[2018-09-03] MEDS: PROCRIT SUB-Q SCH ×2 (13:35→14:20)
[2018-09-03] MEDS: COREG PO SCH ×2 (14:06→22:20)
[2018-09-03] MEDS: ROCEPHIN/NS 1 GM/50 ML 1 GM/50 ML BAG IV SCH (14:20)
[2018-09-03] MEDS: TYLENOL PO PRN (16:00)
--- NOTE | 2018-09-03 18:11 | Progress Note ---
Assessment and Plan Patient awake and resting on room air at this time. O2 sat 95%. No acute respiratory distress. Recommend to use O2 2L when he is not on BiPAP. Patient uses BIPAP at night . Pressures . - Patient Problems (1) CHF (congestive heart failure) Current Visit: Yes Status: Acute Qualifiers: Heart failure type: diastolic Heart failure chronicity: acute Qualified Code(s): I50.31 - Acute diastolic (congestive) heart failure Plan to address problem: Management as per cardiology. (2) CKD (chronic kidney disease) Current Visit: Yes Status: Acute Qualifiers: Chronic kidney disease stage: stage 3 (moderate) Qualified Code(s): N18.3 - Chronic kidney disease, stage 3 (moderate) Plan to address problem: Patient is on hemodialysis. Management as per nephrology. (3) HANSEN (dyspnea on exertion) Current Visit: Yes Status: Acute Plan to address problem: Albuterol aerosol treatments q 6 hours prn for shortness of breath. O2 2 litres via nasal canula BIPAP during night time and PRN during day time for shortness of breath. Continue S/C Heparin. (4) Elevated d-dimer Current Visit: Yes Status: Acute Plan to address problem: Venous doppler studies reported negative for DVT. Perfusion lung scan reported low probabily for pulmonary emboli. Continue S/C heparin. (5) Essential hypertension Current Visit: Yes Status: Chronic Plan to address problem: Management as per primary care. (6) Morbid obesity Current Visit: Yes Status: Chronic Plan to address problem: Recommend to loose weight. Exercise and diet. (7) Sleep apnea with use of continuous positive airway pressure (CPAP) Current Visit: Yes Status: Acute Plan to address problem: Continue BIPAP as using at home. Subjective Date of service: 09/03/18 Principal diagnosis: CHF; CKD; HANSEN; Elevated d-dimer; Essential HTN; Morbid obesity; MARBELLA Interval history: Patient awake and resting on room air at this time. O2 sat 95%. No acute respiratory distress. Recommend to use O2 2L when he is not on BiPAP. Patient uses BIPAP at night . Pressures . Objective Vital Signs - 12hr 09/03/18 09/03/18 09/03/18 10:15 10:30 10:45 Temperature 98.3 F Pulse Rate 72 71 54 L Respiratory 16 Rate Blood Pressure 119/81 121/60 99/36 O2 Sat by Pulse Oximetry 09/03/18 09/03/18 09/03/18 10:50 11:00 11:15 Temperature Pulse Rate 71 71 71 Respiratory Rate Blood Pressure 118/64 110/64 108/55 O2 Sat by Pulse Oximetry 09/03/18 09/03/18 09/03/18 11:30 11:45 12:00 Temperature Pulse Rate 71 69 76 Respiratory Rate Blood Pressure 123/66 114/65 121/59 O2 Sat by Pulse Oximetry 09/03/18 09/03/18 09/03/18 12:15 12:30 13:00 Temperature Pulse Rate 70 74 78 Respiratory Rate Blood Pressure 114/60 125/61 121/68 O2 Sat by Pulse Oximetry 09/03/18 09/03/18 09/03/18 13:15 13:30 13:45 Temperature 98.1 F Pulse Rate 75 72 74 Respiratory 98 H Rate Blood Pressure 117/67 119/62 120/84 O2 Sat by Pulse Oximetry 09/03/18 09/03/18 14:06 16:59 Temperature 98.3 F Pulse Rate 74 69 Respiratory 24 Rate Blood Pressure 125/61 106/46 O2 Sat by Pulse 95 Oximetry Constitutional: no acute distress, alert, other (Morbidly Obese middle aged CM) Eyes: non-icteric ENT: oropharynx moist, other (mallampati 4) Neck: supple, no JVD, other (large neck circumference) Effort: mildly labored Ascultation: Bilateral: diminished breath sounds, rhonchi (scant in bases) Percussion: Bilateral: not dull Cardiovascular: regular rate and rhythm Gastrointestinal: normoactive bowel sounds, soft, non-tender, other (protuberant) Integumentary: cellulitis, other (Cellulitis and wounds in both lower legs.) Extremities: no cyanosis, pink and warm, pulses normal, edema (trace to 1+) Neurologic: normal mental status, non-focal exam, pupils equal and round, CN II- XII normal Psychiatric: mood appropriate, affect normal CBC and BMP: 08/30/18 04:17 09/02/18 06:46 ABG, PT/INR, D-dimer: PT/INR, D-dimer 463.24 ng/mlDDU (0-234) H 08/15/18 21:24 Abnormal lab findings: Abnormal Labs 08/15/18 08/15/18 08/15/18 18:02 18:54 18:54 WBC RBC 3.61 L Hgb 9.8 L Hct 30.1 L MCV MCH 27 L RDW 16.8 H Plt Count [place] % (Auto) 10.7 H Eos % (Auto) 5.9 H Seg Neuts % (Manual) Lymphocytes % (Manual) Monocytes % (Manual) Eosinophils % (Manual) Basophils % (Manual) Seg Neutrophils # Man D-Dimer Sodium Chloride 107.7 H BUN 25 H Creatinine 2.5 H Glucose 159 H POC Glucose 124 H Hemoglobin A1c Calcium Phosphorus Iron Total Creatine Kinase CK-MB (CK-2) Albumin 3.2 L Lffmu-6-Itnfaxxji PEP Interpretation HDL Cholesterol Urine Creatinine Urine Total Protein 08/15/18 08/15/18 08/16/18 21:24 21:24 03:37 WBC RBC Hgb Hct MCV MCH RDW Plt Count [place] % (Auto) Eos % (Auto) Seg Neuts % (Manual) Lymphocytes % (Manual) Monocytes % (Manual) Eosinophils % (Manual) Basophils % (Manual) Seg Neutrophils # Man D-Dimer 463.24 H Sodium Chloride BUN Creatinine Glucose POC Glucose Hemoglobin A1c 7.4 H Calcium Phosphorus Iron Total Creatine Kinase 340 H CK-MB (CK-2) 5.0 H Albumin Jtisk-4-Pjblwgwqc PEP Interpretation HDL Cholesterol Urine Creatinine Urine Total Protein 08/16/18 08/16/18 08/16/18 03:37 07:54 12:01 WBC RBC Hgb Hct MCV MCH RDW Plt Count [place] % (Auto) Eos % (Auto) Seg Neuts % (Manual) Lymphocytes % (Manual) Monocytes % (Manual) Eosinophils % (Manual) Basophils % (Manual) Seg Neutrophils # Man D-Dimer Sodium Chloride BUN Creatinine Glucose POC Glucose 113 H 179 H Hemoglobin A1c Calcium Phosphorus Iron Total Creatine Kinase CK-MB (CK-2) Albumin Jwtzq-5-Gujqfshya PEP Interpretation HDL Cholesterol 37 L Urine Creatinine Urine Total Protein 08/16/18 08/16/18 08/16/18 13:52 17:44 21:21 WBC RBC Hgb Hct MCV MCH RDW Plt Count [place] % (Auto) Eos % (Auto) Seg Neuts % (Manual) Lymphocytes % (Manual) Monocytes % (Manual) Eosinophils % (Manual) Basophils % (Manual) Seg Neutrophils # Man D-Dimer Sodium Chloride BUN Creatinine Glucose POC Glucose 221 H 165 H Hemoglobin A1c Calcium Phosphorus Iron 30 L Total Creatine Kinase CK-MB (CK-2) Albumin Snora-6-Vmblntzyt PEP Interpretation HDL Cholesterol Urine Creatinine Urine Total Protein 08/17/18 08/17/18 08/17/18 04:00 07:30 07:30 WBC RBC Hgb 10.3 L Hct 31.5 L MCV 82 L MCH 27 L RDW 16.8 H Plt Count [place] % (Auto) 14.0 H Eos % (Auto) 6.6 H Seg Neuts % (Manual) Lymphocytes % (Manual) Monocytes % (Manual) Eosinophils % (Manual) Basophils % (Manual) Seg Neutrophils # Sadi D-Dimer Sodium Chloride BUN 32 H Creatinine 2.9 H Glucose 180 H POC Glucose Hemoglobin A1c Calcium Phosphorus Iron Total Creatine Kinase CK-MB (CK-2) Albumin Dppfe-7-Nsfdpkmht PEP Interpretation HDL Cholesterol Urine Creatinine 22.4 H Urine Total Protein 79 H 08/17/18 08/17/18 08/17/18 07:34 11:13 12:17 WBC RBC Hgb Hct MCV MCH RDW Plt Count [place] % (Auto) Eos % (Auto) Seg Neuts % (Manual) Lymphocytes % (Manual) Monocytes % (Manual) Eosinophils % (Manual) Basophils % (Manual) Seg Neutrophils # Sadi D-Dimer Sodium Chloride BUN Creatinine Glucose POC Glucose 169 H 207 H Hemoglobin A1c Calcium Phosphorus Iron Total Creatine Kinase CK-MB (CK-2) Albumin 2.9 L Wbfhx-9-Issmkbibg 0.4 H PEP Interpretation see below H HDL Cholesterol Urine Creatinine Urine Total Protein 08/17/18 08/17/18 08/18/18 16:36 21:17 07:05 WBC RBC Hgb Hct MCV MCH RDW Plt Count [place] % (Auto) Eos % (Auto) Seg Neuts % (Manual) Lymphocytes % (Manual) Monocytes % (Manual) Eosinophils % (Manual) Basophils % (Manual) Seg Neutrophils # Sadi D-Dimer Sodium 134 L Chloride 95.9 L BUN 43 H Creatinine 3.8 H Glucose 150 H POC Glucose 184 H 209 H Hemoglobin A1c Calcium Phosphorus Iron Total Creatine Kinase CK-MB (CK-2) Albumin Ivynl-9-Sbkfbzneu PEP Interpretation HDL Cholesterol Urine Creatinine Urine Total Protein 08/18/18 08/18/18 08/18/18 07:53 08:34 11:53 WBC RBC Hgb 10.8 L Hct 33.8 L MCV MCH 27 L RDW 16.3 H Plt Count [place] % (Auto) Eos % (Auto) Seg Neuts % (Manual) Lymphocytes % (Manual) Monocytes % (Manual) Eosinophils % (Manual) Basophils % (Manual) Seg Neutrophils # Sadi D-Dimer Sodium Chloride BUN Creatinine Glucose POC Glucose 139 H 191 H Hemoglobin A1c Calcium Phosphorus Iron Total Creatine Kinase CK-MB (CK-2) Albumin Djylp-5-Tkdprnsya PEP Interpretation HDL Cholesterol Urine Creatinine Urine Total Protein 08/18/18 08/18/18 08/19/18 15:54 20:49 05:28 WBC RBC Hgb 9.7 L Hct 30.1 L MCV 82 L MCH 26 L RDW 16.6 H Plt Count 136 L [place] % (Auto) Eos % (Auto) Seg Neuts % (Manual) Lymphocytes % (Manual) Monocytes % (Manual) Eosinophils % (Manual) Basophils % (Manual) Seg Neutrophils # Sadi D-Dimer Sodium Chloride BUN Creatinine Glucose POC Glucose 150 H 138 H Hemoglobin A1c Calcium Phosphorus Iron Total Creatine Kinase CK-MB (CK-2) Albumin Yrotb-4-Zpsztwzer PEP Interpretation HDL Cholesterol Urine Creatinine Urine Total Protein 08/19/18 08/19/18 08/19/18 05:28 07:43 11:57 WBC RBC Hgb Hct MCV MCH RDW Plt Count [place] % (Auto) Eos % (Auto) Seg Neuts % (Manual) Lymphocytes % (Manual) Monocytes % (Manual) Eosinophils % (Manual) Basophils % (Manual) Seg Neutrophils # Sadi D-Dimer Sodium 134 L Chloride 96.2 L BUN 55 H Creatinine 4.4 H Glucose 118 H POC Glucose 162 H 280 H Hemoglobin A1c Calcium Phosphorus Iron Total Creatine Kinase CK-MB (CK-2) Albumin Vwmgd-1-Ixucxgiwp PEP Interpretation HDL Cholesterol Urine Creatinine Urine Total Protein 08/19/18 08/19/18 08/20/18 15:41 21:44 04:53 WBC 3.5 L RBC 3.58 L Hgb 9.4 L Hct 29.5 L MCV 83 L MCH 26 L RDW 16.4 H Plt Count 121 L [place] % (Auto) Eos % (Auto) Seg Neuts % (Manual) Lymphocytes % (Manual) Monocytes % (Manual) 16.0 H Eosinophils % (Manual) Basophils % (Manual) 3.0 H Seg Neutrophils # Sadi 1.6 L D-Dimer Sodium Chloride BUN Creatinine Glucose POC Glucose 167 H 234 H Hemoglobin A1c Calcium Phosphorus Iron Total Creatine Kinase CK-MB (CK-2) Albumin Wqeyg-4-Eejkvpver PEP Interpretation HDL Cholesterol Urine Creatinine Urine Total Protein 08/20/18 08/20/18 08/20/18 04:53 08:13 12:09 WBC RBC Hgb Hct MCV MCH RDW Plt Count [place] % (Auto) Eos % (Auto) Seg Neuts % (Manual) Lymphocytes % (Manual) Monocytes % (Manual) Eosinophils % (Manual) Basophils % (Manual) Seg Neutrophils # Man D-Dimer Sodium 136 L Chloride BUN 57 H Creatinine 3.3 H Glucose 136 H POC Glucose 124 H Hemoglobin A1c Calcium Phosphorus 5.50 H Iron Total Creatine Kinase CK-MB (CK-2) Albumin Fpajf-4-Tmmxzjdsu PEP Interpretation HDL Cholesterol Urine Creatinine 56.1 H Urine Total Protein 08/20/18 08/20/18 08/20/18 12:49 18:26 20:53 WBC RBC Hgb Hct MCV MCH RDW Plt Count [place] % (Auto) Eos % (Auto) Seg Neuts % (Manual) Lymphocytes % (Manual) Monocytes % (Manual) Eosinophils % (Manual) Basophils % (Manual) Seg Neutrophils # Man D-Dimer Sodium Chloride BUN Creatinine Glucose POC Glucose 145 H 175 H 184 H Hemoglobin A1c Calcium Phosphorus Iron Total Creatine Kinase CK-MB (CK-2) Albumin Wvdjb-8-Xdgiaxzsf PEP Interpretation HDL Cholesterol Urine Creatinine Urine Total Protein 08/21/18 08/21/18 08/21/18 04:28 04:28 08:58 WBC 3.8 L RBC 3.42 L Hgb 9.2 L Hct 28.4 L MCV 83 L MCH 27 L RDW 16.4 H Plt Count 126 L [place] % (Auto) Eos % (Auto) Seg Neuts % (Manual) Lymphocytes % (Manual) Monocytes % (Manual) 15.0 H Eosinophils % (Manual) Basophils % (Manual) Seg Neutrophils # Man D-Dimer Sodium 134 L Chloride 96.5 L BUN 59 H Creatinine 3.4 H Glucose 190 H POC Glucose 159 H Hemoglobin A1c Calcium Phosphorus 5.10 H Iron Total Creatine Kinase CK-MB (CK-2) Albumin Jlqfo-2-Nqguvvpfz PEP Interpretation HDL Cholesterol Urine Creatinine Urine Total Protein 08/21/18 08/21/18 08/21/18 12:25 17:10 21:43 WBC RBC Hgb Hct MCV MCH RDW Plt Count [place] % (Auto) Eos % (Auto) Seg Neuts % (Manual) Lymphocytes % (Manual) Monocytes % (Manual) Eosinophils % (Manual) Basophils % (Manual) Seg Neutrophils # Man D-Dimer Sodium Chloride BUN Creatinine Glucose POC Glucose 222 H 152 H 150 H Hemoglobin A1c Calcium Phosphorus Iron Total Creatine Kinase CK-MB (CK-2) Albumin Djxqe-1-Wfqdbhywn PEP Interpretation HDL Cholesterol Urine Creatinine Urine Total Protein 08/22/18 08/22/18 08/22/18 04:50 04:51 08:08 WBC 3.7 L RBC 3.37 L Hgb 9.0 L Hct 27.8 L MCV 83 L MCH 27 L RDW 16.9 H Plt Count 124 L [place] % (Auto) Eos % (Auto) Seg Neuts % (Manual) Lymphocytes % (Manual) Monocytes % (Manual) 13.0 H Eosinophils % (Manual) 11.0 H Basophils % (Manual) Seg Neutrophils # Man 1.6 L D-Dimer Sodium 135 L Chloride 97.4 L BUN 64 H Creatinine 3.5 H Glucose 114 H POC Glucose 117 H Hemoglobin A1c Calcium Phosphorus 4.90 H Iron Total Creatine Kinase CK-MB (CK-2) Albumin Caspr-0-Dwzatwmtc PEP Interpretation HDL Cholesterol Urine Creatinine Urine Total Protein 08/22/18 08/22/18 08/23/18 14:48 21:36 05:09 WBC 4.3 L RBC 3.60 L Hgb 9.6 L Hct 29.6 L MCV 82 L MCH 27 L RDW 16.6 H Plt Count 134 L [place] % (Auto) Eos % (Auto) Seg Neuts % (Manual) 38.0 L Lymphocytes % (Manual) 51.0 H Monocytes % (Manual) 8.0 H Eosinophils % (Manual) Basophils % (Manual) Seg Neutrophils # Man 1.6 L D-Dimer Sodium Chloride BUN Creatinine Glucose POC Glucose 211 H 268 H Hemoglobin A1c Calcium Phosphorus Iron Total Creatine Kinase CK-MB (CK-2) Albumin Vyhgx-0-Hieietyts PEP Interpretation HDL Cholesterol Urine Creatinine Urine Total Protein 08/23/18 08/23/18 08/23/18 05:09 07:44 14:02 WBC RBC Hgb Hct MCV MCH RDW Plt Count [place] % (Auto) Eos % (Auto) Seg Neuts % (Manual) Lymphocytes % (Manual) Monocytes % (Manual) Eosinophils % (Manual) Basophils % (Manual) Seg Neutrophils # Sadi D-Dimer Sodium Chloride BUN 45 H Creatinine 2.6 H Glucose 174 H POC Glucose 240 H 161 H Hemoglobin A1c Calcium Phosphorus Iron Total Creatine Kinase CK-MB (CK-2) Albumin Bqjpa-9-Whzjjizgb PEP Interpretation HDL Cholesterol Urine Creatinine Urine Total Protein 08/23/18 08/23/18 08/24/18 17:33 20:32 05:09 WBC RBC Hgb Hct MCV MCH RDW Plt Count [place] % (Auto) Eos % (Auto) Seg Neuts % (Manual) Lymphocytes % (Manual) Monocytes % (Manual) Eosinophils % (Manual) Basophils % (Manual) Seg Neutrophils # Sadi D-Dimer Sodium 135 L Chloride 97.4 L BUN 38 H Creatinine 2.3 H Glucose 183 H POC Glucose 217 H 208 H Hemoglobin A1c Calcium Phosphorus Iron Total Creatine Kinase CK-MB (CK-2) Albumin Pyygr-3-Vhgxytlie PEP Interpretation HDL Cholesterol Urine Creatinine Urine Total Protein 08/24/18 08/24/18 08/24/18 07:49 11:32 16:44 WBC RBC Hgb Hct MCV MCH RDW Plt Count [place] % (Auto) Eos % (Auto) Seg Neuts % (Manual) Lymphocytes % (Manual) Monocytes % (Manual) Eosinophils % (Manual) Basophils % (Manual) Seg Neutrophils # Sadi D-Dimer Sodium Chloride BUN Creatinine Glucose POC Glucose 171 H 271 H 168 H Hemoglobin A1c Calcium Phosphorus Iron Total Creatine Kinase CK-MB (CK-2) Albumin Vzafj-1-Rmyitencf PEP Interpretation HDL Cholesterol Urine Creatinine Urine Total Protein 08/24/18 08/25/18 08/25/18 20:54 04:43 04:43 WBC RBC 3.41 L Hgb 9.1 L Hct 28.0 L MCV 82 L MCH 27 L RDW 17.0 H Plt Count 133 L [place] % (Auto) Eos % (Auto) Seg Neuts % (Manual) Lymphocytes % (Manual) Monocytes % (Manual) 10.0 H Eosinophils % (Manual) Basophils % (Manual) Seg Neutrophils # Sadi D-Dimer Sodium 136 L Chloride BUN 44 H Creatinine 2.6 H Glucose 193 H POC Glucose 214 H Hemoglobin A1c Calcium Phosphorus Iron Total Creatine Kinase CK-MB (CK-2) Albumin Shrlj-4-Vtphuiqhq PEP Interpretation HDL Cholesterol Urine Creatinine Urine Total Protein 08/25/18 08/25/18 08/25/18 08:04 13:43 16:39 WBC RBC Hgb Hct MCV MCH RDW Plt Count [place] % (Auto) Eos % (Auto) Seg Neuts % (Manual) Lymphocytes % (Manual) Monocytes % (Manual) Eosinophils % (Manual) Basophils % (Manual) Seg Neutrophils # Man D-Dimer Sodium Chloride BUN Creatinine Glucose POC Glucose 167 H 193 H 249 H Hemoglobin A1c Calcium Phosphorus Iron Total Creatine Kinase CK-MB (CK-2) Albumin Bpeps-0-Ogqqhgmfx PEP Interpretation HDL Cholesterol Urine Creatinine Urine Total Protein 08/25/18 08/26/18 08/26/18 21:15 04:56 07:21 WBC RBC Hgb Hct MCV MCH RDW Plt Count [place] % (Auto) Eos % (Auto) Seg Neuts % (Manual) Lymphocytes % (Manual) Monocytes % (Manual) Eosinophils % (Manual) Basophils % (Manual) Seg Neutrophils # Sadi D-Dimer Sodium 133 L Chloride 96.3 L BUN 32 H Creatinine 2.1 H Glucose 186 H POC Glucose 176 H 183 H Hemoglobin A1c Calcium 8.3 L Phosphorus Iron Total Creatine Kinase CK-MB (CK-2) Albumin Cisjm-6-Jaebkvqrd PEP Interpretation HDL Cholesterol Urine Creatinine Urine Total Protein 08/26/18 08/26/18 08/26/18 14:34 16:34 21:07 WBC RBC Hgb Hct MCV MCH RDW Plt Count [place] % (Auto) Eos % (Auto) Seg Neuts % (Manual) Lymphocytes % (Manual) Monocytes % (Manual) Eosinophils % (Manual) Basophils % (Manual) Seg Neutrophils # Sadi D-Dimer Sodium Chloride BUN Creatinine Glucose POC Glucose 165 H 206 H 185 H Hemoglobin A1c Calcium Phosphorus Iron Total Creatine Kinase CK-MB (CK-2) Albumin Jptxi-2-Cifmtnkkf PEP Interpretation HDL Cholesterol Urine Creatinine Urine Total Protein 08/27/18 08/27/18 08/27/18 07:34 08:23 16:31 WBC RBC Hgb Hct MCV MCH RDW Plt Count [place] % (Auto) Eos % (Auto) Seg Neuts % (Manual) Lymphocytes % (Manual) Monocytes % (Manual) Eosinophils % (Manual) Basophils % (Manual) Seg Neutrophils # Man D-Dimer Sodium 135 L Chloride 97.3 L BUN 28 H Creatinine 2.4 H Glucose 130 H POC Glucose 136 H 229 H Hemoglobin A1c Calcium 8.0 L Phosphorus Iron Total Creatine Kinase CK-MB (CK-2) Albumin Tqvun-6-Anduzijob PEP Interpretation HDL Cholesterol Urine Creatinine Urine Total Protein 08/27/18 08/28/18 08/28/18 21:32 04:40 07:48 WBC RBC Hgb Hct MCV MCH RDW Plt Count [place] % (Auto) Eos % (Auto) Seg Neuts % (Manual) Lymphocytes % (Manual) Monocytes % (Manual) Eosinophils % (Manual) Basophils % (Manual) Seg Neutrophils # Sadi D-Dimer Sodium 135 L Chloride 97.9 L BUN 25 H Creatinine 2.2 H Glucose 118 H POC Glucose 142 H 120 H Hemoglobin A1c Calcium Phosphorus Iron Total Creatine Kinase CK-MB (CK-2) Albumin Fnvyv-1-Hhkvekdlh PEP Interpretation HDL Cholesterol Urine Creatinine Urine Total Protein 08/28/18 08/28/18 08/29/18 17:11 20:52 04:29 WBC RBC Hgb Hct MCV MCH RDW Plt Count [place] % (Auto) Eos % (Auto) Seg Neuts % (Manual) Lymphocytes % (Manual) Monocytes % (Manual) Eosinophils % (Manual) Basophils % (Manual) Seg Neutrophils # Sadi D-Dimer Sodium 134 L Chloride 93.3 L BUN 36 H Creatinine 2.9 H Glucose 187 H POC Glucose 209 H 188 H Hemoglobin A1c Calcium Phosphorus Iron Total Creatine Kinase CK-MB (CK-2) Albumin Zzmob-4-Aeqkehqjo PEP Interpretation HDL Cholesterol Urine Creatinine Urine Total Protein 08/29/18 08/29/18 08/29/18 08:21 16:54 22:22 WBC RBC Hgb Hct MCV MCH RDW Plt Count [place] % (Auto) Eos % (Auto) Seg Neuts % (Manual) Lymphocytes % (Manual) Monocytes % (Manual) Eosinophils % (Manual) Basophils % (Manual) Seg Neutrophils # Sadi D-Dimer Sodium Chloride BUN Creatinine Glucose POC Glucose 144 H 277 H 240 H Hemoglobin A1c Calcium Phosphorus Iron Total Creatine Kinase CK-MB (CK-2) Albumin Rlwch-0-Zvubnpalf PEP Interpretation HDL Cholesterol Urine Creatinine Urine Total Protein 08/30/18 08/30/18 08/30/18 04:17 04:17 07:56 WBC RBC 3.64 L Hgb 9.8 L Hct 29.6 L MCV 81 L MCH 27 L RDW 16.8 H Plt Count [place] % (Auto) Eos % (Auto) Seg Neuts % (Manual) Lymphocytes % (Manual) Monocytes % (Manual) Eosinophils % (Manual) Basophils % (Manual) Seg Neutrophils # Man D-Dimer Sodium 133 L Chloride 96.4 L BUN 33 H Creatinine 2.9 H Glucose 142 H POC Glucose 134 H Hemoglobin A1c Calcium Phosphorus Iron Total Creatine Kinase CK-MB (CK-2) Albumin Nihzk-5-Lhuhjcwzn PEP Interpretation HDL Cholesterol Urine Creatinine Urine Total Protein 08/30/18 08/30/18 08/31/18 17:11 20:58 07:57 WBC RBC Hgb Hct MCV MCH RDW Plt Count [place] % (Auto) Eos % (Auto) Seg Neuts % (Manual) Lymphocytes % (Manual) Monocytes % (Manual) Eosinophils % (Manual) Basophils % (Manual) Seg Neutrophils # Man D-Dimer Sodium Chloride BUN Creatinine Glucose POC Glucose 223 H 238 H 143 H Hemoglobin A1c Calcium Phosphorus Iron Total Creatine Kinase CK-MB (CK-2) Albumin Mwxzs-8-Vukranyda PEP Interpretation HDL Cholesterol Urine Creatinine Urine Total Protein 08/31/18 08/31/18 08/31/18 09:06 11:13 16:45 WBC RBC Hgb Hct MCV MCH RDW Plt Count [place] % (Auto) Eos % (Auto) Seg Neuts % (Manual) Lymphocytes % (Manual) Monocytes % (Manual) Eosinophils % (Manual) Basophils % (Manual) Seg Neutrophils # Man D-Dimer Sodium 130 L Chloride 87.5 L BUN 47 H Creatinine 3.5 H Glucose 214 H POC Glucose 223 H 320 H Hemoglobin A1c Calcium Phosphorus Iron Total Creatine Kinase CK-MB (CK-2) Albumin Uqqfy-6-Cifpeqeqp PEP Interpretation HDL Cholesterol Urine Creatinine Urine Total Protein 08/31/18 09/01/18 09/01/18 21:48 05:52 07:25 WBC RBC Hgb Hct MCV MCH RDW Plt Count [place] % (Auto) Eos % (Auto) Seg Neuts % (Manual) Lymphocytes % (Manual) Monocytes % (Manual) Eosinophils % (Manual) Basophils % (Manual) Seg Neutrophils # Man D-Dimer Sodium 129 L Chloride 91.1 L BUN 57 H Creatinine 3.5 H Glucose 138 H POC Glucose 197 H 133 H Hemoglobin A1c Calcium Phosphorus Iron Total Creatine Kinase CK-MB (CK-2) Albumin Zhsyi-0-Gguijofhz PEP Interpretation HDL Cholesterol Urine Creatinine Urine Total Protein 09/01/18 09/01/18 09/01/18 14:47 16:56 21:24 WBC RBC Hgb Hct MCV MCH RDW Plt Count [place] % (Auto) Eos % (Auto) Seg Neuts % (Manual) Lymphocytes % (Manual) Monocytes % (Manual) Eosinophils % (Manual) Basophils % (Manual) Seg Neutrophils # Man D-Dimer Sodium Chloride BUN Creatinine Glucose POC Glucose 230 H 264 H 233 H Hemoglobin A1c Calcium Phosphorus Iron Total Creatine Kinase CK-MB (CK-2) Albumin Olmdf-7-Kkalokmme PEP Interpretation HDL Cholesterol Urine Creatinine Urine Total Protein 09/02/18 09/02/18 09/02/18 06:46 07:55 11:47 WBC RBC Hgb Hct MCV MCH RDW Plt Count [place] % (Auto) Eos % (Auto) Seg Neuts % (Manual) Lymphocytes % (Manual) Monocytes % (Manual) Eosinophils % (Manual) Basophils % (Manual) Seg Neutrophils # Sadi D-Dimer Sodium 129 L Chloride 92.4 L BUN 42 H Creatinine 3.5 H Glucose 138 H POC Glucose 140 H 186 H Hemoglobin A1c Calcium Phosphorus Iron Total Creatine Kinase CK-MB (CK-2) Albumin Fbaim-6-Rnsjjcqfj PEP Interpretation HDL Cholesterol Urine Creatinine Urine Total Protein 09/02/18 09/03/18 09/03/18 21:44 07:55 17:07 WBC RBC Hgb Hct MCV MCH RDW Plt Count [place] % (Auto) Eos % (Auto) Seg Neuts % (Manual) Lymphocytes % (Manual) Monocytes % (Manual) Eosinophils % (Manual) Basophils % (Manual) Seg Neutrophils # Man D-Dimer Sodium Chloride BUN Creatinine Glucose POC Glucose 224 H 127 H 249 H Hemoglobin A1c Calcium Phosphorus Iron Total Creatine Kinase CK-MB (CK-2) Albumin Atcqq-3-Ypbrmjfpg PEP Interpretation HDL Cholesterol Urine Creatinine Urine Total Protein Allied health notes reviewed: nursing
[2018-09-03] MEDS: NEURONTIN PO SCH (22:20)
[2018-09-04] MEDS: APRESOLINE PO SCH ×3 (06:33→23:15)
[2018-09-04] MEDS: HumaLOG SUB-Q SCH ×4 (08:24→22:05)
[2018-09-04] MEDS: HumuLIN R SUB-Q SCH ×3 (08:25→17:46)
[2018-09-04] MEDS: COLACE PO SCH ×2 (10:41→22:11)
[2018-09-04] MEDS: VITAMIN D3 PO SCH (10:41)
[2018-09-04] MEDS: COREG PO SCH ×2 (10:41→23:07)
[2018-09-04] MEDS: BABY ASPIRIN PO SCH (10:41)
[2018-09-04] MEDS: HEPARIN SUB-Q SCH ×2 (10:42→22:13)
[2018-09-04] MEDS: SODIUM CHLORIDE FLUSH SYRINGE 10 ML IV SCH ×2 (10:42→23:11)
--- NOTE | 2018-09-04 11:34 | Progress Note ---
Assessment and Plan Assessment and plan: Acute heart failure with preserved EF. Continue present management. No ACEI or ARB due to advanced renal failure. Continue hemodialysis per nephrology. Acute on Chronic kidney disease, stage 3: Patient had Perm-catheter placed 08/22 and hemodialysis was initiated. Secondary GN workup was negative. Renal ultrasound on 08/16/18- Chronic medical renal disease. No Hydronephrosis. No ACEI or ARB due to advanced renal failure. Renally dose all medications. Avoid Nephrotoxic agents. Strict I/O's monitoring. Nephrology to determine long-term needs for hemodialysis. Nephrology states will need outpatient hemodialysis set-up [place]. Case man ager working on it. Still monitoring for Renal Recovery Anasarca and scrotal edema. Hyponatremia follow-up BMP. Elevated D-Dimer. 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 Right toe pressure ulcer, poa, at least stage 3, heel ulcers bilateral also: see admission photos, local wound care done, continue Wound care Morbid obese, bmi 51.3, 342 lbs: counseled on lifestyle modification and weight reduction - Patient Problems (1) Acute heart failure with preserved ejection fraction Current Visit: Yes Status: Acute (2) Acute kidney injury superimposed on CKD Current Visit: Yes Status: Acute (3) Acute on chronic renal failure Current Visit: Yes Status: Acute (4) Anasarca Current Visit: Yes Status: Acute (5) Anemia Current Visit: Yes Status: Acute Qualifiers: Anemia type: unspecified type Qualified Code(s): D64.9 - Anemia, unspecified (6) CKD (chronic kidney disease) Current Visit: Yes Status: Acute Qualifiers: Chronic kidney disease stage: stage 3 (moderate) Qualified Code(s): N18.3 - Chronic kidney disease, stage 3 (moderate) (7) Elevated d-dimer Current Visit: Yes Status: Acute (8) Essential hypertension Current Visit: Yes Status: Chronic (9) Hyperlipemia, mixed Current Visit: Yes Status: Chronic (10) Morbid obesity Current Visit: Yes Status: Chronic (11) MARBELLA (obstructive sleep apnea) Current Visit: Yes Status: Chronic History Interval history: Patient is a 58-year-old male with history of hypertension, diabetes, HLD, CKD stage III who presents to [facility] ED with c/o bilateral lower extremity swelling and shortness of breath. Pt scrotum is swollen obstructing view of his penis. Currently patient is on 2L supplemental O2 with saturation of 94%. D-dimer s lightly elevated at 463.24. CK-MB elevated at 5.0; troponin negative. 2D ECHO conclusions Global LV systolic function is normal, estimated estimated EF is 55- 60%; abnormal LV diastolic dysfunction, mild to moderate concentric LV hypertrophy, trace mr, tr, RVSP calculated at 57 mmHg. He is idagnosed with acute on CKD, initiated on dialysis 08/22/18. Also acute diastolic CHF that has improved with dialysis. After several dialysis sessions, nephrology has determined he needs to be on fci dialysis. He is medically stable, awaiting arrangement for dialysis. He was planning to move to [place] so case management looking for dialysis center in [place]. No new issues overnight. Hospitalist Physical - Constitutional Vitals: Temp Pulse Resp BP Pulse Ox 98.7 F 79 20 118/64 94 09/04/18 05:17 09/04/18 05:17 09/04/18 05:17 09/04/18 10:41 09/04/18 05:17 General appearance: Present: no acute distress, well-nourished - EENT Eyes: Present: PERRL, EOM intact ENT: hearing intact, clear oral mucosa, dentition normal - Neck Neck: Present: supple, normal ROM - Respiratory Respiratory effort: normal Respiratory: bilateral: CTA - Cardiovascular Rhythm: regular Heart Sounds: Present: S1 & S2. Absent: gallop, rub - Extremities Extremities: no ischemia, No edema, Full ROM - Abdominal General gastrointestinal: soft, non-tender, non-distended, normal bowel sounds - Integumentary Integumentary: Present: clear, warm, dry - Neurologic Neurologic: CNII-XII intact, moves all extremities Results - Labs CBC & Chem 7: 08/30/18 04:17 09/02/18 06:46 Labs: Laboratory Last Values WBC 6.8 K/mm3 (4.5-11.0) 08/30/18 04:17 RBC 3.64 M/mm3 (3.65-5.03) L 08/30/18 04:17 Hgb 9.8 gm/dl (11.8-15.2) L 08/30/18 04:17 Hct 29.6 % (35.5-45.6) L 08/30/18 04:17 MCV 81 fl (84-94) L 08/30/18 04:17 MCH 27 pg (28-32) L 08/30/18 04:17 MCHC 33 % (32-34) 08/30/18 04:17 RDW 16.8 % (13.2-15.2) H 08/30/18 04:17 Plt Count 158 K/mm3 (140-440) 08/30/18 04:17 Lymph % (Auto) 26.6 % (13.4-35.0) 08/17/18 07:30 [place] % (Auto) [place] 08/25/18 04:43 Eos % (Auto) 6.6 % (0.0-4.3) H 08/17/18 07:30 Baso % (Auto) 1.1 % (0.0-1.8) 08/17/18 07:30 Lymph # 1.3 K/mm3 (1.2-5.4) 08/17/18 07:30 [place] # 0.7 K/mm3 (0.0-0.8) 08/17/18 07:30 Eos # 0.3 K/mm3 (0.0-0.4) 08/17/18 07:30 Baso # 0.1 K/mm3 (0.0-0.1) 08/17/18 07:30 Add Manual Diff Complete 08/25/18 04:43 Total Counted 100 08/25/18 04:43 Seg Neutrophils % 51.7 % (40.0-70.0) 08/17/18 07:30 Seg Neuts % (Manual) 62.0 % (40.0-70.0) 08/25/18 04:43 0 % 08/25/18 04:43 23.0 % (13.4-35.0) 08/25/18 04:43 Reactive Lymphs % (Man) 0 % 08/25/18 04:43 10.0 % (0.0-7.3) H 08/25/18 04:43 4.0 % (0.0-4.3) 08/25/18 04:43 1.0 % (0.0-1.8) 08/25/18 04:43 0 % 08/25/18 04:43 0 % 08/25/18 04:43 0 % 08/25/18 04:43 0 % 08/25/18 04:43 Nucleated RBC % Not Reportable 08/25/18 04:43 Seg Neutrophils # 2.6 K/mm3 (1.8-7.7) 08/17/18 07:30 Seg Neutrophils # Man 3.3 K/mm3 (1.8-7.7) 08/25/18 04:43 Band Neutrophils # 0.0 K/mm3 08/25/18 04:43 1.2 K/mm3 (1.2-5.4) 08/25/18 04:43 Abs React Lymphs (Man) 0.0 K/mm3 08/25/18 04:43 0.5 K/mm3 (0.0-0.8) 08/25/18 04:43 0.2 K/mm3 (0.0-0.4) 08/25/18 04:43 0.1 K/mm3 (0.0-0.1) 08/25/18 04:43 0.0 K/mm3 08/25/18 04:43 0.0 K/mm3 08/25/18 04:43 0.0 K/mm3 08/25/18 04:43 Blast Cells # 0.0 K/mm3 08/25/18 04:43 WBC Morphology Not Reportable 08/25/18 04:43 Hypersegmented Neuts Not Reportable 08/25/18 04:43 Hyposegmented Neuts Not Reportable 08/25/18 04:43 Hypogranular Neuts Not Reportable 08/25/18 04:43 Not Reportable 08/25/18 04:43 Not Reportable 08/25/18 04:43 Not Reportable 08/25/18 04:43 Not Reportable 08/25/18 04:43 Not Reportable 08/25/18 04:43 Not Reportable 08/25/18 04:43 Consistent w auto 08/25/18 04:43 Not Reportable 08/25/18 04:43 Plt Clumps, EDTA Not Reportable 08/25/18 04:43 Rare 08/25/18 04:43 Not Reportable 08/25/18 04:43 Not Reportable 08/25/18 04:43 Plt Morphology Comment Not Reportable 08/25/18 04:43 RBC Morphology Not Reportable 08/25/18 04:43 Dimorphic RBCs Not Reportable 08/25/18 04:43 Not Reportable 08/25/18 04:43 Not Reportable 08/25/18 04:43 1+ 08/25/18 04:43 1+ 08/25/18 04:43 Not Reportable 08/25/18 04:43 Not Reportable 08/25/18 04:43 Not Reportable 08/25/18 04:43 Not Reportable 08/25/18 04:43 Not Reportable 08/25/18 04:43 Not Reportable 08/25/18 04:43 Not Reportable 08/25/18 04:43 Not Reportable 08/25/18 04:43 Not Reportable 08/25/18 04:43 Not Reportable 08/25/18 04:43 Not Reportable 08/25/18 04:43 Not Reportable 08/25/18 04:43 Not Reportable 08/25/18 04:43 Not Reportable 08/25/18 04:43 1+ 08/25/18 04:43 Acanthocytes (Spur) Not Reportable 08/25/18 04:43 Rouleaux Not Reportable 08/25/18 04:43 Not Reportable 08/25/18 04:43 Not Reportable 08/25/18 04:43 Not Reportable 08/25/18 04:43 Not Reportable 08/25/18 04:43 Hem Pathologist Commnt No 08/25/18 04:43 463.24 ng/mlDDU (0-234) H 08/15/18 21:24 Sodium 129 mmol/L (137-145) L 09/02/18 06:46 Potassium 4.5 mmol/L (3.6-5.0) 09/02/18 06:46 Chloride 92.4 mmol/L (98-107) L 09/02/18 06:46 Carbon Dioxide 25 mmol/L (22-30) 09/02/18 06:46 16 mmol/L 09/02/18 06:46 BUN 42 mg/dL (9-20) H 09/02/18 06:46 3.5 mg/dL (0.8-1.5) H 09/02/18 06:46 Estimated GFR 18 ml/min 09/02/18 06:46 12 % 09/02/18 06:46 Glucose 138 mg/dL (75-100) H 09/02/18 06:46 POC Glucose 118 (70-105) H 09/04/18 07:52 7.4 % (4-6) H 08/16/18 03:37 Lactic Acid 0.70 mmol/L (0.7-2.0) 08/20/18 04:53 Calcium 8.7 mg/dL (8.4-10.2) 09/02/18 06:46 Phosphorus 3.90 mg/dL (2.5-4.5) 08/25/18 04:43 Iron 30 ug/dL (49-181) L 08/16/18 13:52 TIBC 352 mcg/dL (250-450) 08/16/18 13:52 78.2 ng/mL (13.0-400.0) 08/18/18 08:34 0.40 mg/dL (0.1-1.2) 08/15/18 18:54 AST 25 units/L (5-40) 08/15/18 18:54 ALT 15 units/L (7-56) 08/15/18 18:54 74 units/L (35-129) 08/15/18 18:54 340 units/L (55-170) H 08/15/18 21:24 CK-MB (CK-2) 5.0 ng/mL (0.0-4.0) H 08/15/18 21:24 CK-MB (CK-2) Rel Index 1.4 (0-4) 08/15/18 21:24 0.026 ng/mL (0.00-0.029) 08/15/18 21:24 NT-Pro-B Natriuret Pep 877.6 pg/mL (0-900) 08/17/18 11:13 6.1 g/dL (6.1-8.1) 08/17/18 11:13 6.7 g/dL (6.3-8.2) 08/15/18 18:54 2.9 g/dL (3.8-4.8) L 08/17/18 11:13 0.9 % 08/15/18 18:54 0.4 g/dL (0.2-0.3) H 08/17/18 11:13 0.7 g/dL (0.5-0.9) 08/17/18 11:13 0.5 g/dL (0.2-0.5) 08/17/18 11:13 1.1 g/dL (0.8-1.7) 08/17/18 11:13 Abnorm Protein Band 1 see below 08/17/18 11:13 PEP Interpretation see below H 08/17/18 11:13 Triglycerides 140 mg/dL (2-149) 08/16/18 03:37 Cholesterol 147 mg/dL (50-199) 08/16/18 03:37 88 mg/dL (50-130) 08/16/18 03:37 37 mg/dL (40-59) L 08/16/18 03:37 3.97 % 08/16/18 03:37 Straw (Yellow) 08/17/18 04:00 Clear (Clear) 08/17/18 04:00 7.0 (5.0-7.0) 08/17/18 04:00 Ur Specific [place] 1.006 (1.003-1.030) 08/17/18 04:00 100 mg/dl mg/dL (Negative) 08/17/18 04:00 Neg mg/dL (Negative) 08/17/18 04:00 Neg mg/dL (Negative) 08/17/18 04:00 Neg (Negative) 08/17/18 04:00 Neg (Negative) 08/17/18 04:00 Neg (Negative) 08/17/18 04:00 < 2.0 mg/dL (<2.0) 08/17/18 04:00 Ur Leukocyte Esterase Neg (Negative) 08/17/18 04:00 < 1.0 /HPF (0.0-6.0) 08/17/18 04:00 2.0 /HPF (0.0-6.0) 08/17/18 04:00 U Epithel Cells (Auto) 1.0 /HPF (0-13.0) 08/15/18 18:47 1+ /HPF (Negative) 08/17/18 04:00 Few /HPF 08/15/18 18:47 None seen (None Seen) 08/17/18 04:00 Ur Random Creatinine See scanned report 08/17/18 10:40 U Random Total Protein See scanned report 08/17/18 10:40 800 ml 08/20/18 12:09 56.1 mg/dL (0.1-20.0) H 08/20/18 12:09 Height (in) 68.0 inches 08/20/18 12:09 Weight (lb) 348.8 lbs 08/20/18 12:09 6 08/20/18 12:09 Protein/Creatinin Ratio See scanned report 08/17/18 10:40 132 mmol/L 08/17/18 04:00 106 08/17/18 04:00 79 mg/dL (5-11.8) H 08/17/18 04:00 U Abnormal Prot Band 1 See scanned report 08/17/18 10:40 U Abnormal Prot Band 2 See scanned report 08/17/18 10:40 U Abnormal Prot Band 3 See scanned report 08/17/18 10:40 Immunofix Electrophor see below 08/17/18 11:13 JELANI Screen Negative (Negative) 08/17/18 11:13 Double Strand DNA Ab <1 IU/mL (<=4) 08/17/18 11:13 144 mg/dL (82-185) 08/17/18 11:13 23 mg/dL (15-53) 08/17/18 11:13 RPR Nonreactive (Nonreactive) 08/17/18 11:13 Hepatitis A IgM Ab Non-reactive (NonReactive) 08/17/18 11:13 Hep Bs Antigen Non-reactive (Negative) 08/17/18 11:13 Hep B Core IgM Ab Non-reactive (NonReactive) 08/17/18 11:13 Non-reactive (NonReactive) 08/17/18 11:13 HIV 1&2 Antibody Rapid Non react (Non React) 08/17/18 11:13 Non react (Non React) 08/17/18 11:13 Active Medications - Current Medications Current Medications: Generic Name Dose Route Start Last Admin Trade Name Freq PRN Reason Stop Dose Admin Acetaminophen 650 mg 08/16/18 03:07 09/03/18 16:00 Tylenol PO 650 mg Q4H PRN Administration Pain MILD(1-3)/Fever >100.5/FRAIRE Albuterol 2.5 mg 08/16/18 03:07 Proventil IH Q4HRT PRN Shortness Of Breath Aspirin 81 mg 08/16/18 10:00 09/04/18 10:41 Baby Aspirin PO 81 mg QDAY [facility] Administration Atorvastatin Calcium 40 mg 08/16/18 22:00 09/03/18 22:20 Lipitor PO 40 mg QHS [facility] Administration Carvedilol 6.25 mg 08/17/18 12:00 09/04/18 10:41 Coreg PO 6.25 mg BID [facility] Administration Cholecalciferol 5,000 unit 08/16/18 10:00 09/04/18 10:41 Vitamin D3 PO 5,000 unit DAILY [facility] Administration Dextrose 50 ml 08/16/18 03:13 D50w (25gm) Syringe IV PRN PRN Hypoglycemia Docusate Sodium 100 mg 08/16/18 10:00 09/04/18 10:41 Colace PO 100 mg BID [facility] Administration Epoetin [place] 10,000 unit 08/18/18 13:00 09/03/18 14:20 Procrit SUB-Q Not Given MOWEFR [facility] Gabapentin 300 mg 08/16/18 22:00 09/03/18 22:20 Neurontin PO 300 mg QHS [facility] Administration Heparin Sodium (Porcine) 5,000 unit 08/16/18 10:00 09/04/18 10:42 Heparin SUB-Q 5,000 unit Q12HR [facility] Administration Hydralazine HCl 50 mg 08/16/18 14:00 09/04/18 06:33 Apresoline PO Not Given Q8HR [facility] Sodium Chloride 100 mls @ 999 mls/hr 09/02/18 09:49 Nacl 0.9% IV JANE PRN Hypotension Insulin Human Lispro 0 unit 08/16/18 07:30 09/04/18 08:24 Humalog SUB-Q Not Given ACHS [facility] Protocol Insulin Human Regular 5 units 08/16/18 07:30 09/04/18 08:25 Humulin R SUB-Q 5 units AC [facility] Administration Nitroglycerin 0.4 mg 08/16/18 03:07 Nitrostat SL .Q5MIN PRN Chest Pain Ondansetron HCl 4 mg 08/16/18 03:07 08/16/18 16:39 Zofran IV 4 mg Q8H PRN Administration Nausea And Vomiting Oxycodone/Acetaminophen 1 tab 08/16/18 03:07 08/23/18 22:06 Percocet 5/325 PO 1 tab Q6H PRN Administration Pain, Moderate (4-6) Sodium Chloride 10 ml 08/16/18 10:00 09/04/18 10:42 Sodium Chloride Flush Syringe 10 Ml IV 10 ml BID [facility]ENE Administration Sodium Chloride 10 ml 08/16/18 03:07 08/16/18 06:17 Sodium Chloride Flush Syringe 10 Ml IV 10 ml PRN PRN Administration LINE FLUSH Nutrition/Malnutrition Assess - Dietary Evaluation Nutrition/Malnutrition Findings: Nutrition Notes Start: 08/16/18 09:25 Freq: Status: Active Protocol: Document 08/19/18 14:48 GHASSAN (Rec: 08/19/18 14:54 GHASSAN MEDEIROS-FNSERVICE S1) Nutrition Notes Initial or Follow up Brief Note Current Diagnosis CKD(stage I-IV),Diabetes Other Pertinent Diagnosis Fluid retention in scrotum and BLE edema, wounds on toe, heel and leg Current Diet Cardiac/consistent CHO Labs/Tests Na 134 BUN 55 Cr 4.4 Pertinent Medications Reviewed [place] Body Weight (kg) 0 Subjective/Other Information Pt reports good appetite; has been consuming 75-100% of meals. Nutrition Intervention Revisit per MD consult or patient Sign Off request:
--- NOTE | 2018-09-04 14:07 | Progress Note ---
Assessment and Plan ESRD on HD - no indication for HD today -Secondary GN workup was negative -Renal ultrasound on 08/16/18- Chronic medical renal disease. No Hydronephrosis. -No ACEI or ARB due to advanced renal failure -Renally dose all medications -Avoid Nephrotoxic agents -Strict I/O's monitoring -[place] Catheter: None present -Patient awaiting placement to [facility] Congestive Diastolic heart failure -Echo- LVEF is 55-60% -S/P IV Lasix -UF with HD -Cardiology onboard Anemia of chronic disease due to CKD: -On Epogen 10,000 units SQ every M,W,F -Monitor H/H Essential Hypertension: - Continue on current regimen - Adjust medications as needed Diabetes Mellitus type 2 on insulin: -On insulin as per primary team Subjective Date of service: 09/04/18 Principal diagnosis: CHF; CKD; HANSEN; Elevated d-dimer; Essential HTN; Morbid obesity; MARBELLA Interval history: denies acute issues, ready to go home Objective - Vital Signs Vital signs: Vital Signs - 12hr 09/04/18 09/04/18 09/04/18 05:17 10:41 11:05 Temperature 98.7 F 98.5 F Pulse Rate 79 66 Respiratory 20 22 Rate Blood Pressure 114/69 118/64 134/68 O2 Sat by Pulse 94 95 Oximetry - General Appearance General appearance: well-developed EENT: ATNC, PERRL, mucous membranes moist Neck: no JVD, no carotid bruit Respiratory: Present: Clear to Ascultation. Absent: Rales, Ronchi Cardiology: regular, S1S2 Gastrointestinal: normoactive bowel sounds, no tenderness, no distended Integumentary: no rash, warm and dry Neurologic: no focal deficit, no asterixis, alert and oriented x3 Musculoskeletal: other (1+pitting edema in BLE) Psychiatric: mood/affect appropriate, cooperative - Lab 08/30/18 04:17 09/02/18 06:46 Most recent lab results Calcium 8.7 mg/dL (8.4-10.2) 09/02/18 06:46 Phosphorus 3.90 mg/dL (2.5-4.5) 08/25/18 04:43 56.1 mg/dL (0.1-20.0) H 08/20/18 12:09 132 mmol/L 08/17/18 04:00 79 mg/dL (5-11.8) H 08/17/18 04:00 Medications & Allergies - Medications Allergies/Adverse Reactions: Allergies canagliflozin [From Invokana] Allergy (Verified 08/15/18 17:49) Unknown IV CONTRAST DYE Allergy (Uncoded 08/15/18 17:49) Unknown Home Medications: Home Medications Medication Instructions Recorded Confirmed Last Taken Type Doxylamine Succinate [Unisom] 25 mg PO QHS 08/16/18 08/16/18 Unknown History Niacin [Niacor] 500 mg PO DAILY 08/16/18 08/16/18 Unknown History Triamcinolone Acetonide [Nasacort 10.8 ml NS DAILY 08/16/18 08/16/18 Unknown History SPRAY] Aspirin [Aspirin BABY CHEW TAB] 81 mg PO QDAY tab.chew 09/03/18 Unknown Rx AtorvaSTATin [Lipitor] 40 mg PO QHS #40 tablet 09/03/18 Unknown Rx Carvedilol [Coreg] 6.25 mg PO BID #60 tablet 09/03/18 Unknown Rx Cholecalciferol (Vitamin D3) 5,000 unit PO DAILY #30 capsule 09/03/18 Unknown Rx [Vitamin D3 5,000 UNIT] Epoetin [place] 10,000 Unit [Procrit] 10,000 unit SUB-Q MOWEFR 30 Days 09/03/18 Unknown Rx vial Gabapentin [Neurontin] 300 mg PO QHS #30 capsule 09/03/18 Unknown Rx Insulin Regular, Human [HumuLIN R] 5 units SUB-Q AC 30 Days units 09/03/18 Unknown Rx Lispro Insulin [HumaLOG] 0 unit SUB-Q ACHS units 09/03/18 Unknown Rx Loratadine [Claritin] 10 mg PO DAILY PRN #30 tablet 09/03/18 Unknown Rx Melatonin [Melatonin 3MG TAB] 3 mg PO QHS #30 tablet 09/03/18 Unknown Rx Nitroglycerin [Nitrostat] 0.4 mg SL .Q5MIN PRN tablet 09/03/18 Unknown Rx Omeprazole 20 mg PO DAILY PRN #30 capsule. 09/03/18 Unknown Rx hydrALAZINE [Apresoline TAB] 50 mg PO Q8HR #90 tablet 09/03/18 Unknown Rx oxyCODONE /ACETAMINOPHEN [Percocet 1 tab PO Q6H PRN #8 tablet 09/03/18 Unknown Rx 5/325 mg] Active Medications: Generic Name Dose Route Start Last Admin Trade Name Freq PRN Reason Stop Dose Admin Acetaminophen 650 mg 08/16/18 03:07 09/03/18 16:00 Tylenol PO 650 mg Q4H PRN Administration Pain MILD(1-3)/Fever >100.5/FRAIRE Albuterol 2.5 mg 08/16/18 03:07 Proventil IH Q4HRT PRN Shortness Of Breath Aspirin 81 mg 08/16/18 10:00 09/04/18 10:41 Baby Aspirin PO 81 mg QDAY [facility] Administration Atorvastatin Calcium 40 mg 08/16/18 22:00 09/03/18 22:20 Lipitor PO 40 mg QHS [facility] Administration Carvedilol 6.25 mg 08/17/18 12:00 09/04/18 10:41 Coreg PO 6.25 mg BID [facility] Administration Cholecalciferol 5,000 unit 08/16/18 10:00 09/04/18 10:41 Vitamin D3 PO 5,000 unit DAILY [facility] Administration Dextrose 50 ml 08/16/18 03:13 D50w (25gm) Syringe IV PRN PRN Hypoglycemia Docusate Sodium 100 mg 08/16/18 10:00 09/04/18 10:41 Colace PO 100 mg BID ON [facility] Administration Epoetin [place] 10,000 unit 08/18/18 13:00 09/03/18 14:20 Procrit SUB-Q Not Given MOWEFR ON LICENSE OF [facility] Gabapentin 300 mg 08/16/18 22:00 09/03/18 22:20 Neurontin PO 300 mg QHS [facility] Administration Heparin Sodium (Porcine) 5,000 unit 08/16/18 10:00 09/04/18 10:42 Heparin SUB-Q 5,000 unit Q12HR [facility] Administration Hydralazine HCl 50 mg 08/16/18 14:00 09/04/18 06:33 Apresoline PO Not Given Q8HR ON [facility] OF [facility] Sodium Chloride 100 mls @ 999 mls/hr 09/02/18 09:49 Nacl 0.9% IV JANE PRN Hypotension Insulin Human Lispro 0 unit 08/16/18 07:30 09/04/18 13:01 Humalog SUB-Q 2 unit ACHS [facility] Administration Protocol Insulin Human Regular 5 units 08/16/18 07:30 09/04/18 13:02 Humulin R SUB-Q 5 units AC [facility] Administration Nitroglycerin 0.4 mg 08/16/18 03:07 Nitrostat SL .Q5MIN PRN Chest Pain Ondansetron HCl 4 mg 08/16/18 03:07 08/16/18 16:39 Zofran IV 4 mg Q8H PRN Administration Nausea And Vomiting Oxycodone/Acetaminophen 1 tab 08/16/18 03:07 08/23/18 22:06 Percocet 5/325 PO 1 tab Q6H PRN Administration Pain, Moderate (4-6) Sodium Chloride 10 ml 08/16/18 10:00 09/04/18 10:42 Sodium Chloride Flush Syringe 10 Ml IV 10 ml BID [facility] Administration Sodium Chloride 10 ml 08/16/18 03:07 08/16/18 06:17 Sodium Chloride Flush Syringe 10 Ml IV 10 ml PRN PRN Administration LINE FLUSH
[2018-09-04] MEDS: NEURONTIN PO SCH (22:11)
[2018-09-05] MEDS: APRESOLINE PO SCH ×3 (05:45→22:37)
[2018-09-05] MEDS ORDERED: NACL 0.9% IV SCH (06:00)
[2018-09-05] MEDS ORDERED: NACL 0.9% 250ML 250 ML IV SCH (06:00)
[2018-09-05 06:32] LABS: Calcium 8.9 mg/dL (8.4-10.2)
[2018-09-05] MEDS: HumuLIN R SUB-Q SCH ×3 (07:30→16:30)
--- NOTE | 2018-09-05 08:41 | Progress Note ---
Assessment and Plan ESRD on HD -HD today for clearance and volume removal -Secondary GN workup was negative -Renal ultrasound on 08/16/18- Chronic medical renal disease. No Hydronephrosis. -No ACEI or ARB due to advanced renal failure -Renally dose all medications -Avoid Nephrotoxic agents -Strict I/O's monitoring -Mckeon Catheter: None present -Patient awaiting placement to [facility] Congestive Diastolic heart failure -Echo- LVEF is 55-60% -S/P IV Lasix -UF with HD -Cardiology onboard Anemia of chronic disease due to CKD: -On Epogen 10,000 units SQ every M,W,F -Monitor H/H Essential Hypertension: - Continue on current regimen - Adjust medications as needed Diabetes Mellitus type 2 on insulin: -On insulin as per primary team Subjective Date of service: 09/05/18 Principal diagnosis: CHF; CKD; HANSEN; Elevated d-dimer; Essential HTN; Morbid obesity; MARBELLA Interval history: seen in dialysis, tolerating Objective - Vital Signs Vital signs: Vital Signs - 12hr 09/04/18 09/04/18 09/04/18 22:25 22:26 22:59 Temperature 97.5 F L 97.5 F L 98.8 F Pulse Rate 76 66 Respiratory 18 18 16 Rate Blood Pressure 125/66 122/62 Blood Pressure 125/66 [Left] O2 Sat by Pulse 96 Oximetry 09/04/18 09/04/18 09/05/18 23:07 23:15 05:04 Temperature 98.1 F Pulse Rate 76 76 63 Respiratory 16 Rate Blood Pressure 125/66 125/66 81/41 Blood Pressure [Left] O2 Sat by Pulse 95 Oximetry 09/05/18 05:45 Temperature Pulse Rate 63 Respiratory Rate Blood Pressure 81/41 Blood Pressure [Left] O2 Sat by Pulse Oximetry - Lab 08/30/18 04:17 09/05/18 05:18 Most recent lab results Calcium 8.9 mg/dL (8.4-10.2) 09/05/18 05:18 Phosphorus 3.90 mg/dL (2.5-4.5) 08/25/18 04:43 56.1 mg/dL (0.1-20.0) H 08/20/18 12:09 132 mmol/L 08/17/18 04:00 79 mg/dL (5-11.8) H 08/17/18 04:00 Medications & Allergies - Medications Allergies/Adverse Reactions: Allergies canagliflozin [From Invokana] Allergy (Verified 08/15/18 17:49) Unknown IV CONTRAST DYE Allergy (Uncoded 08/15/18 17:49) Unknown Home Medications: Home Medications Medication Instructions Recorded Confirmed Last Taken Type Doxylamine Succinate [Unisom] 25 mg PO QHS 08/16/18 08/16/18 Unknown History Niacin [Niacor] 500 mg PO DAILY 08/16/18 08/16/18 Unknown History Triamcinolone Acetonide [Nasacort 10.8 ml NS DAILY 08/16/18 08/16/18 Unknown History SPRAY] Aspirin [Aspirin BABY CHEW TAB] 81 mg PO QDAY tab.chew 09/03/18 Unknown Rx AtorvaSTATin [Lipitor] 40 mg PO QHS #40 tablet 09/03/18 Unknown Rx Carvedilol [Coreg] 6.25 mg PO BID #60 tablet 09/03/18 Unknown Rx Cholecalciferol (Vitamin D3) 5,000 unit PO DAILY #30 capsule 09/03/18 Unknown Rx [Vitamin D3 5,000 UNIT] Epoetin Keon 10,000 Unit [Procrit] 10,000 unit SUB-Q MOWEFR 30 Days 09/03/18 Unknown Rx vial Gabapentin [Neurontin] 300 mg PO QHS #30 capsule 09/03/18 Unknown Rx Insulin Regular, Human [HumuLIN R] 5 units SUB-Q AC 30 Days units 09/03/18 Unknown Rx Lispro Insulin [HumaLOG] 0 unit SUB-Q ACHS units 09/03/18 Unknown Rx Loratadine [Claritin] 10 mg PO DAILY PRN #30 tablet 09/03/18 Unknown Rx Melatonin [Melatonin 3MG TAB] 3 mg PO QHS #30 tablet 09/03/18 Unknown Rx Nitroglycerin [Nitrostat] 0.4 mg SL .Q5MIN PRN tablet 09/03/18 Unknown Rx Omeprazole 20 mg PO DAILY PRN #30 capsule. 09/03/18 Unknown Rx hydrALAZINE [Apresoline TAB] 50 mg PO Q8HR #90 tablet 09/03/18 Unknown Rx oxyCODONE /ACETAMINOPHEN [Percocet 1 tab PO Q6H PRN #8 tablet 09/03/18 Unknown Rx 5/325 mg] Active Medications: Generic Name Dose Route Start Last Admin Trade Name Freq PRN Reason Stop Dose Admin Acetaminophen 650 mg 08/16/18 03:07 09/03/18 16:00 Tylenol PO 650 mg Q4H PRN Administration Pain MILD(1-3)/Fever >100.5/FRAIRE Albuterol 2.5 mg 08/16/18 03:07 Proventil IH Q4HRT PRN Shortness Of Breath Aspirin 81 mg 08/16/18 10:00 09/04/18 10:41 Baby Aspirin PO 81 mg QDAY ARLENE Administration Atorvastatin Calcium 40 mg 08/16/18 22:00 09/04/18 22:11 Lipitor PO 40 mg QHS ARLENE Administration Carvedilol 6.25 mg 08/17/18 12:00 09/04/18 23:07 Coreg PO 6.25 mg BID ARLENE Administration Cholecalciferol 5,000 unit 08/16/18 10:00 09/04/18 10:41 Vitamin D3 PO 5,000 unit DAILY ARLENE Administration Dextrose 50 ml 08/16/18 03:13 D50w (25gm) Syringe IV PRN PRN Hypoglycemia Docusate Sodium 100 mg 08/16/18 10:00 09/04/18 22:11 Colace PO 100 mg BID [facility] Administration Epoetin Keon 10,000 unit 08/18/18 13:00 09/03/18 14:20 Procrit SUB-Q Not Given MOWEFR [facility] Gabapentin 300 mg 08/16/18 22:00 09/04/18 22:11 Neurontin PO 300 mg QHS [facility] Administration Heparin Sodium (Porcine) 5,000 unit 08/16/18 10:00 09/04/18 22:13 Heparin SUB-Q 5,000 unit Q12HR ARLENE Administration Hydralazine HCl 50 mg 08/16/18 14:00 09/05/18 05:45 Apresoline PO Not Given Q8HR [facility] Sodium Chloride 100 mls @ 999 mls/hr 09/02/18 09:49 Nacl 0.9% IV JANE PRN Hypotension Insulin Human Lispro 0 unit 08/16/18 07:30 09/04/18 22:05 Humalog SUB-Q 3 unit ACHS [facility] Administration Protocol Insulin Human Regular 5 units 08/16/18 07:30 09/04/18 17:46 Humulin R SUB-Q 5 units AC ARLENE Administration Nitroglycerin 0.4 mg 08/16/18 03:07 Nitrostat SL .Q5MIN PRN Chest Pain Ondansetron HCl 4 mg 08/16/18 03:07 08/16/18 16:39 Zofran IV 4 mg Q8H PRN Administration Nausea And Vomiting Oxycodone/Acetaminophen 1 tab 08/16/18 03:07 08/23/18 22:06 Percocet 5/325 PO 1 tab Q6H PRN Administration Pain, Moderate (4-6) Sodium Chloride 10 ml 08/16/18 10:00 09/04/18 23:11 Sodium Chloride Flush Syringe 10 Ml IV 10 ml BID ARLENE Administration Sodium Chloride 10 ml 08/16/18 03:07 08/16/18 06:17 Sodium Chloride Flush Syringe 10 Ml IV 10 ml PRN PRN Administration LINE FLUSH
[2018-09-05] MEDS: HEPARIN SUB-Q SCH ×2 (10:00→22:38)
[2018-09-05] MEDS: COREG PO SCH ×2 (10:00→22:37)
[2018-09-05] MEDS: SODIUM CHLORIDE FLUSH SYRINGE 10 ML IV SCH ×2 (10:00→22:41)
[2018-09-05] MEDS: COLACE PO SCH ×2 (10:00→22:36)
[2018-09-05] MEDS: HumaLOG SUB-Q SCH ×4 (11:30→22:40)
--- NOTE | 2018-09-05 11:37 | Progress Note ---
Assessment and Plan Assessment and plan: Acute heart failure with preserved EF. Continue present management. No ACEI or ARB due to advanced renal failure. Continue hemodialysis per nephrology. Acute on Chronic kidney disease, stage 3: Patient had Perm-catheter placed 08/22 and hemodialysis was initiated. Secondary GN workup was negative. Renal ultrasound on 08/16/18- Chronic medical renal disease. No Hydronephrosis. No ACEI or ARB due to advanced renal failure. Renally dose all medications. Avoid Nephrotoxic agents. Strict I/O's monitoring. Nephrology to determine long-term needs for hemodialysis. Nephrology states will need outpatient hemodialysis set-up [place]. Case man ager working on it. Still monitoring for Renal Recovery Anasarca and scrotal edema. Hyponatremia follow-up BMP. Elevated D-Dimer. VQ scan negative Hypertensive urgency: iv antihypertensives as needed, low salt diet DM type 2; ada and ssi HLD: treat with statins Malnutrition mild to moderate: counseling done, consulted Nutritionalist Right toe pressure ulcer, poa, at least stage 3, heel ulcers bilateral also: see admission photos, local wound care done, continue Wound care Morbid obese, bmi 51.3, 342 lbs: counseled on lifestyle modification and weight reduction - Patient Problems (1) Acute heart failure with preserved ejection fraction Current Visit: Yes Status: Acute (2) Acute kidney injury superimposed on CKD Current Visit: Yes Status: Acute (3) Acute on chronic renal failure Current Visit: Yes Status: Acute (4) Anasarca Current Visit: Yes Status: Acute (5) Anemia Current Visit: Yes Status: Acute Qualifiers: Anemia type: unspecified type Qualified Code(s): D64.9 - Anemia, unspecified (6) CKD (chronic kidney disease) Current Visit: Yes Status: Acute Qualifiers: Chronic kidney disease stage: stage 3 (moderate) Qualified Code(s): N18.3 - Chronic kidney disease, stage 3 (moderate) (7) Elevated d-dimer Current Visit: Yes Status: Acute (8) Essential hypertension Current Visit: Yes Status: Chronic (9) Hyperlipemia, mixed Current Visit: Yes Status: Chronic (10) Morbid obesity Current Visit: Yes Status: Chronic (11) MARBELLA (obstructive sleep apnea) Current Visit: Yes Status: Chronic History Interval history: Patient is a 58-year-old male with history of hypertension, diabetes, HLD, CKD stage III who presents to [facility] ED with c/o bilateral lower extremity swelling and shortness of breath. Pt scrotum is swollen obstructing view of his penis. Currently patient is on 2L supplemental O2 with saturation of 94%. D-dimer s lightly elevated at 463.24. CK-MB elevated at 5.0; troponin negative. 2D ECHO conclusions Global LV systolic function is normal, estimated estimated EF is 55- 60%; abnormal LV diastolic dysfunction, mild to moderate concentric LV hypertrophy, trace mr, tr, RVSP calculated at 57 mmHg. He is idagnosed with acute on CKD, initiated on dialysis 08/22/18. Also acute diastolic CHF that has improved with dialysis. After several dialysis sessions, nephrology has determined he needs to be on jail dialysis. He is medically stable, awaiting arrangement for dialysis. He was planning to move to [place] so case management looking for dialysis center in [place]. No new issues overnight. Hospitalist Physical - Constitutional Vitals: Temp Pulse Resp BP Pulse Ox 98.5 F 65 16 119/54 94 09/05/18 09:02 09/05/18 09:02 09/05/18 05:04 09/05/18 09:02 09/05/18 09:02 General appearance: Present: no acute distress, well-nourished - EENT Eyes: Present: PERRL, EOM intact ENT: hearing intact, clear oral mucosa, dentition normal - Neck Neck: Present: supple, normal ROM - Respiratory Respiratory effort: normal Respiratory: bilateral: CTA - Cardiovascular Rhythm: regular Heart Sounds: Present: S1 & S2. Absent: gallop, rub - Extremities Extremities: no ischemia, No edema, Full ROM - Abdominal General gastrointestinal: soft, non-tender, non-distended, normal bowel sounds - Integumentary Integumentary: Present: clear, warm, dry - Neurologic Neurologic: CNII-XII intact, moves all extremities Results - Labs CBC & Chem 7: 08/30/18 04:17 09/05/18 05:18 Labs: Laboratory Last Values WBC 6.8 K/mm3 (4.5-11.0) 08/30/18 04:17 RBC 3.64 M/mm3 (3.65-5.03) L 08/30/18 04:17 Hgb 9.8 gm/dl (11.8-15.2) L 08/30/18 04:17 Hct 29.6 % (35.5-45.6) L 08/30/18 04:17 MCV 81 fl (84-94) L 08/30/18 04:17 MCH 27 pg (28-32) L 08/30/18 04:17 MCHC 33 % (32-34) 08/30/18 04:17 RDW 16.8 % (13.2-15.2) H 08/30/18 04:17 Plt Count 158 K/mm3 (140-440) 08/30/18 04:17 Lymph % (Auto) 26.6 % (13.4-35.0) 08/17/18 07:30 Labette % (Auto) Needle Felt Making Machine Operator 08/25/18 04:43 Eos % (Auto) 6.6 % (0.0-4.3) H 08/17/18 07:30 Baso % (Auto) 1.1 % (0.0-1.8) 08/17/18 07:30 Lymph # 1.3 K/mm3 (1.2-5.4) 08/17/18 07:30 Labette # 0.7 K/mm3 (0.0-0.8) 08/17/18 07:30 Eos # 0.3 K/mm3 (0.0-0.4) 08/17/18 07:30 Baso # 0.1 K/mm3 (0.0-0.1) 08/17/18 07:30 Add Manual Diff Complete 08/25/18 04:43 Total Counted 100 08/25/18 04:43 Seg Neutrophils % 51.7 % (40.0-70.0) 08/17/18 07:30 Seg Neuts % (Manual) 62.0 % (40.0-70.0) 08/25/18 04:43 0 % 08/25/18 04:43 23.0 % (13.4-35.0) 08/25/18 04:43 Reactive Lymphs % (Man) 0 % 08/25/18 04:43 10.0 % (0.0-7.3) H 08/25/18 04:43 4.0 % (0.0-4.3) 08/25/18 04:43 1.0 % (0.0-1.8) 08/25/18 04:43 0 % 08/25/18 04:43 0 % 08/25/18 04:43 0 % 08/25/18 04:43 0 % 08/25/18 04:43 Nucleated RBC % Not Reportable 08/25/18 04:43 Seg Neutrophils # 2.6 K/mm3 (1.8-7.7) 08/17/18 07:30 Seg Neutrophils # Man 3.3 K/mm3 (1.8-7.7) 08/25/18 04:43 Band Neutrophils # 0.0 K/mm3 08/25/18 04:43 1.2 K/mm3 (1.2-5.4) 08/25/18 04:43 Abs React Lymphs (Man) 0.0 K/mm3 08/25/18 04:43 0.5 K/mm3 (0.0-0.8) 08/25/18 04:43 0.2 K/mm3 (0.0-0.4) 08/25/18 04:43 0.1 K/mm3 (0.0-0.1) 08/25/18 04:43 0.0 K/mm3 08/25/18 04:43 0.0 K/mm3 08/25/18 04:43 0.0 K/mm3 08/25/18 04:43 Blast Cells # 0.0 K/mm3 08/25/18 04:43 WBC Morphology Not Reportable 08/25/18 04:43 Hypersegmented Neuts Not Reportable 08/25/18 04:43 Hyposegmented Neuts Not Reportable 08/25/18 04:43 Hypogranular Neuts Not Reportable 08/25/18 04:43 Not Reportable 08/25/18 04:43 Not Reportable 08/25/18 04:43 Not Reportable 08/25/18 04:43 Not Reportable 08/25/18 04:43 Not Reportable 08/25/18 04:43 Not Reportable 08/25/18 04:43 Consistent w auto 08/25/18 04:43 Not Reportable 08/25/18 04:43 Plt Clumps, EDTA Not Reportable 08/25/18 04:43 Rare 08/25/18 04:43 Not Reportable 08/25/18 04:43 Not Reportable 08/25/18 04:43 Plt Morphology Comment Not Reportable 08/25/18 04:43 RBC Morphology Not Reportable 08/25/18 04:43 Dimorphic RBCs Not Reportable 08/25/18 04:43 Not Reportable 08/25/18 04:43 Not Reportable 08/25/18 04:43 1+ 08/25/18 04:43 1+ 08/25/18 04:43 Not Reportable 08/25/18 04:43 Not Reportable 08/25/18 04:43 Not Reportable 08/25/18 04:43 Not Reportable 08/25/18 04:43 Not Reportable 08/25/18 04:43 Not Reportable 08/25/18 04:43 Not Reportable 08/25/18 04:43 Not Reportable 08/25/18 04:43 Not Reportable 08/25/18 04:43 Not Reportable 08/25/18 04:43 Not Reportable 08/25/18 04:43 Not Reportable 08/25/18 04:43 Not Reportable 08/25/18 04:43 Not Reportable 08/25/18 04:43 1+ 08/25/18 04:43 Acanthocytes (Spur) Not Reportable 08/25/18 04:43 Rouleaux Not Reportable 08/25/18 04:43 Not Reportable 08/25/18 04:43 Not Reportable 08/25/18 04:43 Not Reportable 08/25/18 04:43 Not Reportable 08/25/18 04:43 Hem Pathologist Commnt No 08/25/18 04:43 463.24 ng/mlDDU (0-234) H 08/15/18 21:24 Sodium 130 mmol/L (137-145) L 09/05/18 05:18 Potassium 4.3 mmol/L (3.6-5.0) 09/05/18 05:18 Chloride 91.5 mmol/L (98-107) L 09/05/18 05:18 Carbon Dioxide 25 mmol/L (22-30) 09/05/18 05:18 18 mmol/L 09/05/18 05:18 BUN 47 mg/dL (9-20) H 09/05/18 05:18 4.7 mg/dL (0.8-1.5) H 09/05/18 05:18 Estimated GFR 13 ml/min 09/05/18 05:18 10 % 09/05/18 05:18 Glucose 199 mg/dL (75-100) H 09/05/18 05:18 POC Glucose 181 (70-105) H 09/05/18 07:39 7.4 % (4-6) H 08/16/18 03:37 Lactic Acid 0.70 mmol/L (0.7-2.0) 08/20/18 04:53 Calcium 8.9 mg/dL (8.4-10.2) 09/05/18 05:18 Phosphorus 3.90 mg/dL (2.5-4.5) 08/25/18 04:43 Iron 30 ug/dL (49-181) L 08/16/18 13:52 TIBC 352 mcg/dL (250-450) 08/16/18 13:52 78.2 ng/mL (13.0-400.0) 08/18/18 08:34 0.40 mg/dL (0.1-1.2) 08/15/18 18:54 AST 25 units/L (5-40) 08/15/18 18:54 ALT 15 units/L (7-56) 08/15/18 18:54 74 units/L (35-129) 08/15/18 18:54 340 units/L (55-170) H 08/15/18 21:24 CK-MB (CK-2) 5.0 ng/mL (0.0-4.0) H 08/15/18 21:24 CK-MB (CK-2) Rel Index 1.4 (0-4) 08/15/18 21:24 0.026 ng/mL (0.00-0.029) 08/15/18 21:24 NT-Pro-B Natriuret Pep 877.6 pg/mL (0-900) 08/17/18 11:13 6.1 g/dL (6.1-8.1) 08/17/18 11:13 6.7 g/dL (6.3-8.2) 08/15/18 18:54 2.9 g/dL (3.8-4.8) L 08/17/18 11:13 0.9 % 08/15/18 18:54 0.4 g/dL (0.2-0.3) H 08/17/18 11:13 0.7 g/dL (0.5-0.9) 08/17/18 11:13 0.5 g/dL (0.2-0.5) 08/17/18 11:13 1.1 g/dL (0.8-1.7) 08/17/18 11:13 Abnorm Protein Band 1 see below 08/17/18 11:13 PEP Interpretation see below H 08/17/18 11:13 Triglycerides 140 mg/dL (2-149) 08/16/18 03:37 Cholesterol 147 mg/dL (50-199) 08/16/18 03:37 88 mg/dL (50-130) 08/16/18 03:37 37 mg/dL (40-59) L 08/16/18 03:37 3.97 % 08/16/18 03:37 Straw (Yellow) 08/17/18 04:00 Clear (Clear) 08/17/18 04:00 7.0 (5.0-7.0) 08/17/18 04:00 Ur Specific [place] 1.006 (1.003-1.030) 08/17/18 04:00 100 mg/dl mg/dL (Negative) 08/17/18 04:00 Neg mg/dL (Negative) 08/17/18 04:00 Neg mg/dL (Negative) 08/17/18 04:00 Neg (Negative) 08/17/18 04:00 Neg (Negative) 08/17/18 04:00 Neg (Negative) 08/17/18 04:00 < 2.0 mg/dL (<2.0) 08/17/18 04:00 Ur Leukocyte Esterase Neg (Negative) 08/17/18 04:00 < 1.0 /HPF (0.0-6.0) 08/17/18 04:00 2.0 /HPF (0.0-6.0) 08/17/18 04:00 U Epithel Cells (Auto) 1.0 /HPF (0-13.0) 08/15/18 18:47 1+ /HPF (Negative) 08/17/18 04:00 Few /HPF 08/15/18 18:47 None seen (None Seen) 08/17/18 04:00 Ur Random Creatinine See scanned report 08/17/18 10:40 U Random Total Protein See scanned report 08/17/18 10:40 800 ml 08/20/18 12:09 56.1 mg/dL (0.1-20.0) H 08/20/18 12:09 Height (in) 68.0 inches 08/20/18 12:09 Weight (lb) 348.8 lbs 08/20/18 12:09 6 08/20/18 12:09 Protein/Creatinin Ratio See scanned report 08/17/18 10:40 132 mmol/L 08/17/18 04:00 106 08/17/18 04:00 79 mg/dL (5-11.8) H 08/17/18 04:00 U Abnormal Prot Band 1 See scanned report 08/17/18 10:40 U Abnormal Prot Band 2 See scanned report 08/17/18 10:40 U Abnormal Prot Band 3 See scanned report 08/17/18 10:40 Immunofix Electrophor see below 08/17/18 11:13 JELANI Screen Negative (Negative) 08/17/18 11:13 Double Strand DNA Ab <1 IU/mL (<=4) 08/17/18 11:13 144 mg/dL (82-185) 08/17/18 11:13 23 mg/dL (15-53) 08/17/18 11:13 RPR Nonreactive (Nonreactive) 08/17/18 11:13 Hepatitis A IgM Ab Non-reactive (NonReactive) 08/17/18 11:13 Hep Bs Antigen Non-reactive (Negative) 08/17/18 11:13 Hep B Core IgM Ab Non-reactive (NonReactive) 08/17/18 11:13 Non-reactive (NonReactive) 08/17/18 11:13 HIV 1&2 Antibody Rapid Non react (Non React) 08/17/18 11:13 Non react (Non React) 08/17/18 11:13 Active Medications - Current Medications Current Medications: Generic Name Dose Route Start Last Admin Trade Name Freq PRN Reason Stop Dose Admin Acetaminophen 650 mg 08/16/18 03:07 09/03/18 16:00 Tylenol PO 650 mg Q4H PRN Administration Pain MILD(1-3)/Fever >100.5/FRAIRE Albuterol 2.5 mg 08/16/18 03:07 Proventil IH Q4HRT PRN Shortness Of Breath Aspirin 81 mg 08/16/18 10:00 09/04/18 10:41 Baby Aspirin PO 81 mg QDAY [facility] Administration Atorvastatin Calcium 40 mg 08/16/18 22:00 09/04/18 22:11 Lipitor PO 40 mg QHS [facility] Administration Carvedilol 6.25 mg 08/17/18 12:00 09/04/18 23:07 Coreg PO 6.25 mg BID [facility] Administration Cholecalciferol 5,000 unit 08/16/18 10:00 09/04/18 10:41 Vitamin D3 PO 5,000 unit DAILY [facility] Administration Dextrose 50 ml 08/16/18 03:13 D50w (25gm) Syringe IV PRN PRN Hypoglycemia Docusate Sodium 100 mg 08/16/18 10:00 09/04/18 22:11 Colace PO 100 mg BID [facility] Administration Epoetin Keon 10,000 unit 08/18/18 13:00 09/03/18 14:20 Procrit SUB-Q Not Given MOWEFR [facility] Gabapentin 300 mg 08/16/18 22:00 09/04/18 22:11 Neurontin PO 300 mg QHS [facility] Administration Heparin Sodium (Porcine) 5,000 unit 08/16/18 10:00 09/04/18 22:13 Heparin SUB-Q 5,000 unit Q12HR [facility] Administration Hydralazine HCl 50 mg 08/16/18 14:00 09/05/18 05:45 Apresoline PO Not Given Q8HR [facility] Sodium Chloride 100 mls @ 999 mls/hr 09/02/18 09:49 Nacl 0.9% IV JANE PRN Hypotension Insulin Human Lispro 0 unit 08/16/18 07:30 09/04/18 22:05 Humalog SUB-Q 3 unit ACHS [facility] Administration Protocol Insulin Human Regular 5 units 08/16/18 07:30 09/04/18 17:46 Humulin R SUB-Q 5 units AC [facility] Administration Nitroglycerin 0.4 mg 08/16/18 03:07 Nitrostat SL .Q5MIN PRN Chest Pain Ondansetron HCl 4 mg 08/16/18 03:07 08/16/18 16:39 Zofran IV 4 mg Q8H PRN Administration Nausea And Vomiting Oxycodone/Acetaminophen 1 tab 08/16/18 03:07 08/23/18 22:06 Percocet 5/325 PO 1 tab Q6H PRN Administration Pain, Moderate (4-6) Sodium Chloride 10 ml 08/16/18 10:00 09/04/18 23:11 Sodium Chloride Flush Syringe 10 Ml IV 10 ml BID ARLENE Administration Sodium Chloride 10 ml 08/16/18 03:07 08/16/18 06:17 Sodium Chloride Flush Syringe 10 Ml IV 10 ml PRN PRN Administration LINE FLUSH Nutrition/Malnutrition Assess - Dietary Evaluation Nutrition/Malnutrition Findings: Nutrition Notes Start: 08/16/18 09:25 Freq: Status: Active Protocol: Document 08/19/18 14:48 GHASSAN (Rec: 08/19/18 14:54 GHASSAN [email or web address]) Nutrition Notes Initial or Follow up Brief Note Current Diagnosis CKD(stage I-IV),Diabetes Other Pertinent Diagnosis Fluid retention in scrotum and BLE edema, wounds on toe, heel and leg Current Diet Cardiac/consistent CHO Labs/Tests Na 134 BUN 55 Cr 4.4 Pertinent Medications Reviewed [place] Body Weight (kg) 0 Subjective/Other Information Pt reports good appetite; has been consuming 75-100% of meals. Nutrition Intervention Revisit per MD consult or patient Sign Off request:
[2018-09-05] MEDS: PROCRIT SUB-Q SCH (12:40)
--- NOTE | 2018-09-05 14:00 | Progress Note ---
Assessment and Plan CHF (congestive heart failure) CKD (chronic kidney disease) HANSEN (dyspnea on exertion) Elevated d-dimer Essential hypertension Morbid obesity Sleep apnea with use of continuous positive airway pressure (CPAP) - continue supplemental oxygen as needed to keep O2 sats > 90% - continue bronchodilators with pulmonary hygiene per RT - continue HD/UF for toxin and volume clearance - suspect deconditioning playing a major role in HANSEN; continue PT/OT as tolerated - continue BIPAP therapy qhs re: MARBELLA/OHS - weight loss counseled - VQ scan and lower extremity dopplers normal; no further VTE w/up - continue chronic disease meds per attending - neurology evaluation ongoing - GI & VTE prophylaxis - Flu & pneumovax per protocol - outpatient pulmonary clinic f/up .. re-evaluate in am & prn Subjective Date of service: 09/05/18 Principal diagnosis: CHF; CKD; HANSEN; Elevated d-dimer; Essential HTN; Morbid obesity; MARBELLA Interval history: Patient is seen today for: CHF (congestive heart failure); CKD (chronic kidney disease); HANSEN (dyspnea on exertion); Elevated d-dimer; Essential hypertension; Morbid obesity; Sleep apnea with use of continuous positive airway pressure (CPAP) Seen and examined at bedside; 24hour events reviewed; nursing and respiratory care staff consulted; no adverse overnight events reported to me; Objective Vital Signs - 12hr 09/05/18 09/05/18 09/05/18 05:04 05:45 09:02 Temperature 98.1 F 98.5 F Pulse Rate 63 63 65 Respiratory 16 Rate Blood Pressure 81/41 81/41 119/54 O2 Sat by Pulse 95 94 Oximetry Constitutional: no acute distress, alert, other (Morbidly Obese middle aged CM) Eyes: non-icteric ENT: oropharynx moist, other (mallampati 4) Neck: supple, no JVD, other (large neck circumference) Effort: mildly labored Ascultation: Bilateral: diminished breath sounds, rhonchi (scant in bases) Percussion: Bilateral: not dull Cardiovascular: regular rate and rhythm Gastrointestinal: normoactive bowel sounds, soft, non-tender, other (protuberant) Integumentary: cellulitis, other (Cellulitis and wounds in both lower legs.) Extremities: no cyanosis, pink and warm, pulses normal, edema (trace to 1+) Neurologic: normal mental status, non-focal exam, pupils equal and round, CN II- XII normal Psychiatric: mood appropriate, affect normal CBC and BMP: 08/30/18 04:17 09/05/18 05:18 ABG, PT/INR, D-dimer: PT/INR, D-dimer 463.24 ng/mlDDU (0-234) H 08/15/18 21:24 Abnormal lab findings: Abnormal Labs 08/15/18 08/15/18 08/15/18 18:02 18:54 18:54 WBC RBC 3.61 L Hgb 9.8 L Hct 30.1 L MCV MCH 27 L RDW 16.8 H Plt Count [place] % (Auto) 10.7 H Eos % (Auto) 5.9 H Seg Neuts % (Manual) Lymphocytes % (Manual) Monocytes % (Manual) Eosinophils % (Manual) Basophils % (Manual) Seg Neutrophils # Man D-Dimer Sodium Chloride 107.7 H BUN 25 H Creatinine 2.5 H Glucose 159 H POC Glucose 124 H Hemoglobin A1c Calcium Phosphorus Iron Total Creatine Kinase CK-MB (CK-2) Albumin 3.2 L Xibcm-6-Kixwwwrxb PEP Interpretation HDL Cholesterol Urine Creatinine Urine Total Protein 08/15/18 08/15/18 08/16/18 21:24 21:24 03:37 WBC RBC Hgb Hct MCV MCH RDW Plt Count [place] % (Auto) Eos % (Auto) Seg Neuts % (Manual) Lymphocytes % (Manual) Monocytes % (Manual) Eosinophils % (Manual) Basophils % (Manual) Seg Neutrophils # Man D-Dimer 463.24 H Sodium Chloride BUN Creatinine Glucose POC Glucose Hemoglobin A1c 7.4 H Calcium Phosphorus Iron Total Creatine Kinase 340 H CK-MB (CK-2) 5.0 H Albumin Npgmu-5-Rynnjlpyt PEP Interpretation HDL Cholesterol Urine Creatinine Urine Total Protein 08/16/18 08/16/18 08/16/18 03:37 07:54 12:01 WBC RBC Hgb Hct MCV MCH RDW Plt Count [place] % (Auto) Eos % (Auto) Seg Neuts % (Manual) Lymphocytes % (Manual) Monocytes % (Manual) Eosinophils % (Manual) Basophils % (Manual) Seg Neutrophils # Man D-Dimer Sodium Chloride BUN Creatinine Glucose POC Glucose 113 H 179 H Hemoglobin A1c Calcium Phosphorus Iron Total Creatine Kinase CK-MB (CK-2) Albumin Qfwsv-6-Drfhdtkfb PEP Interpretation HDL Cholesterol 37 L Urine Creatinine Urine Total Protein 08/16/18 08/16/18 08/16/18 13:52 17:44 21:21 WBC RBC Hgb Hct MCV MCH RDW Plt Count [place] % (Auto) Eos % (Auto) Seg Neuts % (Manual) Lymphocytes % (Manual) Monocytes % (Manual) Eosinophils % (Manual) Basophils % (Manual) Seg Neutrophils # Sadi D-Dimer Sodium Chloride BUN Creatinine Glucose POC Glucose 221 H 165 H Hemoglobin A1c Calcium Phosphorus Iron 30 L Total Creatine Kinase CK-MB (CK-2) Albumin Yqdlm-2-Cylzavady PEP Interpretation HDL Cholesterol Urine Creatinine Urine Total Protein 08/17/18 08/17/18 08/17/18 04:00 07:30 07:30 WBC RBC Hgb 10.3 L Hct 31.5 L MCV 82 L MCH 27 L RDW 16.8 H Plt Count [place] % (Auto) 14.0 H Eos % (Auto) 6.6 H Seg Neuts % (Manual) Lymphocytes % (Manual) Monocytes % (Manual) Eosinophils % (Manual) Basophils % (Manual) Seg Neutrophils # Sadi D-Dimer Sodium Chloride BUN 32 H Creatinine 2.9 H Glucose 180 H POC Glucose Hemoglobin A1c Calcium Phosphorus Iron Total Creatine Kinase CK-MB (CK-2) Albumin Ipahp-7-Wbzcuyhok PEP Interpretation HDL Cholesterol Urine Creatinine 22.4 H Urine Total Protein 79 H 08/17/18 08/17/18 08/17/18 07:34 11:13 12:17 WBC RBC Hgb Hct MCV MCH RDW Plt Count [place] % (Auto) Eos % (Auto) Seg Neuts % (Manual) Lymphocytes % (Manual) Monocytes % (Manual) Eosinophils % (Manual) Basophils % (Manual) Seg Neutrophils # Sadi D-Dimer Sodium Chloride BUN Creatinine Glucose POC Glucose 169 H 207 H Hemoglobin A1c Calcium Phosphorus Iron Total Creatine Kinase CK-MB (CK-2) Albumin 2.9 L Jesfe-3-Sviuqlhpo 0.4 H PEP Interpretation see below H HDL Cholesterol Urine Creatinine Urine Total Protein 08/17/18 08/17/18 08/18/18 16:36 21:17 07:05 WBC RBC Hgb Hct MCV MCH RDW Plt Count [place] % (Auto) Eos % (Auto) Seg Neuts % (Manual) Lymphocytes % (Manual) Monocytes % (Manual) Eosinophils % (Manual) Basophils % (Manual) Seg Neutrophils # Man D-Dimer Sodium 134 L Chloride 95.9 L BUN 43 H Creatinine 3.8 H Glucose 150 H POC Glucose 184 H 209 H Hemoglobin A1c Calcium Phosphorus Iron Total Creatine Kinase CK-MB (CK-2) Albumin Nupjd-3-Guvsrtmff PEP Interpretation HDL Cholesterol Urine Creatinine Urine Total Protein 08/18/18 08/18/18 08/18/18 07:53 08:34 11:53 WBC RBC Hgb 10.8 L Hct 33.8 L MCV MCH 27 L RDW 16.3 H Plt Count [place] % (Auto) Eos % (Auto) Seg Neuts % (Manual) Lymphocytes % (Manual) Monocytes % (Manual) Eosinophils % (Manual) Basophils % (Manual) Seg Neutrophils Rosette Avitia D-Natalya Sodium Chloride BUN Creatinine Glucose POC Glucose 139 H 191 H Hemoglobin A1c Calcium Phosphorus Iron Total Creatine Kinase CK-MB (CK-2) Albumin Miuzl-6-Csjptkknc PEP Interpretation HDL Cholesterol Urine Creatinine Urine Total Protein 08/18/18 08/18/18 08/19/18 15:54 20:49 05:28 WBC RBC Hgb 9.7 L Hct 30.1 L MCV 82 L MCH 26 L RDW 16.6 H Plt Count 136 L [place] % (Auto) Eos % (Auto) Seg Neuts % (Manual) Lymphocytes % (Manual) Monocytes % (Manual) Eosinophils % (Manual) Basophils % (Manual) Seg Neutrophils Rosette Green-Natalya Sodium Chloride BUN Creatinine Glucose POC Glucose 150 H 138 H Hemoglobin A1c Calcium Phosphorus Iron Total Creatine Kinase CK-MB (CK-2) Albumin Fwfag-1-Epkfxyitt PEP Interpretation HDL Cholesterol Urine Creatinine Urine Total Protein 08/19/18 08/19/18 08/19/18 05:28 07:43 11:57 WBC RBC Hgb Hct MCV MCH RDW Plt Count [place] % (Auto) Eos % (Auto) Seg Neuts % (Manual) Lymphocytes % (Manual) Monocytes % (Manual) Eosinophils % (Manual) Basophils % (Manual) Seg Neutrophils Rosette Avitia D-Dimer Sodium 134 L Chloride 96.2 L BUN 55 H Creatinine 4.4 H Glucose 118 H POC Glucose 162 H 280 H Hemoglobin A1c Calcium Phosphorus Iron Total Creatine Kinase CK-MB (CK-2) Albumin Rsoks-3-Fnodniscn PEP Interpretation HDL Cholesterol Urine Creatinine Urine Total Protein 08/19/18 08/19/18 08/20/18 15:41 21:44 04:53 WBC 3.5 L RBC 3.58 L Hgb 9.4 L Hct 29.5 L MCV 83 L MCH 26 L RDW 16.4 H Plt Count 121 L [place] % (Auto) Eos % (Auto) Seg Neuts % (Manual) Lymphocytes % (Manual) Monocytes % (Manual) 16.0 H Eosinophils % (Manual) Basophils % (Manual) 3.0 H Seg Neutrophils # Sadi 1.6 L D-Dimer Sodium Chloride BUN Creatinine Glucose POC Glucose 167 H 234 H Hemoglobin A1c Calcium Phosphorus Iron Total Creatine Kinase CK-MB (CK-2) Albumin Klpci-2-Qjkhnybjn PEP Interpretation HDL Cholesterol Urine Creatinine Urine Total Protein 08/20/18 08/20/18 08/20/18 04:53 08:13 12:09 WBC RBC Hgb Hct MCV MCH RDW Plt Count [place] % (Auto) Eos % (Auto) Seg Neuts % (Manual) Lymphocytes % (Manual) Monocytes % (Manual) Eosinophils % (Manual) Basophils % (Manual) Seg Neutrophils # Sadi D-Dimer Sodium 136 L Chloride BUN 57 H Creatinine 3.3 H Glucose 136 H POC Glucose 124 H Hemoglobin A1c Calcium Phosphorus 5.50 H Iron Total Creatine Kinase CK-MB (CK-2) Albumin Kkihp-7-Cwnfyjfrj PEP Interpretation HDL Cholesterol Urine Creatinine 56.1 H Urine Total Protein 08/20/18 08/20/18 08/20/18 12:49 18:26 20:53 WBC RBC Hgb Hct MCV MCH RDW Plt Count [place] % (Auto) Eos % (Auto) Seg Neuts % (Manual) Lymphocytes % (Manual) Monocytes % (Manual) Eosinophils % (Manual) Basophils % (Manual) Seg Neutrophils # Sadi D-Dimer Sodium Chloride BUN Creatinine Glucose POC Glucose 145 H 175 H 184 H Hemoglobin A1c Calcium Phosphorus Iron Total Creatine Kinase CK-MB (CK-2) Albumin Yufrb-7-Psctcqfej PEP Interpretation HDL Cholesterol Urine Creatinine Urine Total Protein 08/21/18 08/21/18 08/21/18 04:28 04:28 08:58 WBC 3.8 L RBC 3.42 L Hgb 9.2 L Hct 28.4 L MCV 83 L MCH 27 L RDW 16.4 H Plt Count 126 L [place] % (Auto) Eos % (Auto) Seg Neuts % (Manual) Lymphocytes % (Manual) Monocytes % (Manual) 15.0 H Eosinophils % (Manual) Basophils % (Manual) Seg Neutrophils # Sadi D-Dimer Sodium 134 L Chloride 96.5 L BUN 59 H Creatinine 3.4 H Glucose 190 H POC Glucose 159 H Hemoglobin A1c Calcium Phosphorus 5.10 H Iron Total Creatine Kinase CK-MB (CK-2) Albumin Cgvep-2-Rdetavvnk PEP Interpretation HDL Cholesterol Urine Creatinine Urine Total Protein 08/21/18 08/21/18 08/21/18 12:25 17:10 21:43 WBC RBC Hgb Hct MCV MCH RDW Plt Count [place] % (Auto) Eos % (Auto) Seg Neuts % (Manual) Lymphocytes % (Manual) Monocytes % (Manual) Eosinophils % (Manual) Basophils % (Manual) Seg Neutrophils Rosette Avitia D-Dimer Sodium Chloride BUN Creatinine Glucose POC Glucose 222 H 152 H 150 H Hemoglobin A1c Calcium Phosphorus Iron Total Creatine Kinase CK-MB (CK-2) Albumin Ondjy-5-Lcklylqsw PEP Interpretation HDL Cholesterol Urine Creatinine Urine Total Protein 08/22/18 08/22/18 08/22/18 04:50 04:51 08:08 WBC 3.7 L RBC 3.37 L Hgb 9.0 L Hct 27.8 L MCV 83 L MCH 27 L RDW 16.9 H Plt Count 124 L [place] % (Auto) Eos % (Auto) Seg Neuts % (Manual) Lymphocytes % (Manual) Monocytes % (Manual) 13.0 H Eosinophils % (Manual) 11.0 H Basophils % (Manual) Seg Neutrophils Rosette Avitia 1.6 L D-Dimer Sodium 135 L Chloride 97.4 L BUN 64 H Creatinine 3.5 H Glucose 114 H POC Glucose 117 H Hemoglobin A1c Calcium Phosphorus 4.90 H Iron Total Creatine Kinase CK-MB (CK-2) Albumin Vwtji-3-Mlviicsuc PEP Interpretation HDL Cholesterol Urine Creatinine Urine Total Protein 08/22/18 08/22/18 08/23/18 14:48 21:36 05:09 WBC 4.3 L RBC 3.60 L Hgb 9.6 L Hct 29.6 L MCV 82 L MCH 27 L RDW 16.6 H Plt Count 134 L [place] % (Auto) Eos % (Auto) Seg Neuts % (Manual) 38.0 L Lymphocytes % (Manual) 51.0 H Monocytes % (Manual) 8.0 H Eosinophils % (Manual) Basophils % (Manual) Seg Neutrophils Rosette Avitia 1.6 L D-Dimer Sodium Chloride BUN Creatinine Glucose POC Glucose 211 H 268 H Hemoglobin A1c Calcium Phosphorus Iron Total Creatine Kinase CK-MB (CK-2) Albumin Eqfqr-9-Wrdlhyhkp PEP Interpretation HDL Cholesterol Urine Creatinine Urine Total Protein 08/23/18 08/23/18 08/23/18 05:09 07:44 14:02 WBC RBC Hgb Hct MCV MCH RDW Plt Count [place] % (Auto) Eos % (Auto) Seg Neuts % (Manual) Lymphocytes % (Manual) Monocytes % (Manual) Eosinophils % (Manual) Basophils % (Manual) Seg Neutrophils # Man D-Dimer Sodium Chloride BUN 45 H Creatinine 2.6 H Glucose 174 H POC Glucose 240 H 161 H Hemoglobin A1c Calcium Phosphorus Iron Total Creatine Kinase CK-MB (CK-2) Albumin Uhulp-3-Kqfinpxce PEP Interpretation HDL Cholesterol Urine Creatinine Urine Total Protein 08/23/18 08/23/18 08/24/18 17:33 20:32 05:09 WBC RBC Hgb Hct MCV MCH RDW Plt Count [place] % (Auto) Eos % (Auto) Seg Neuts % (Manual) Lymphocytes % (Manual) Monocytes % (Manual) Eosinophils % (Manual) Basophils % (Manual) Seg Neutrophils # Man D-Dimer Sodium 135 L Chloride 97.4 L BUN 38 H Creatinine 2.3 H Glucose 183 H POC Glucose 217 H 208 H Hemoglobin A1c Calcium Phosphorus Iron Total Creatine Kinase CK-MB (CK-2) Albumin Qewlt-3-Dysyxnpco PEP Interpretation HDL Cholesterol Urine Creatinine Urine Total Protein 08/24/18 08/24/18 08/24/18 07:49 11:32 16:44 WBC RBC Hgb Hct MCV MCH RDW Plt Count [place] % (Auto) Eos % (Auto) Seg Neuts % (Manual) Lymphocytes % (Manual) Monocytes % (Manual) Eosinophils % (Manual) Basophils % (Manual) Seg Neutrophils # Man D-Dimer Sodium Chloride BUN Creatinine Glucose POC Glucose 171 H 271 H 168 H Hemoglobin A1c Calcium Phosphorus Iron Total Creatine Kinase CK-MB (CK-2) Albumin Nbdjd-2-Omzkammra PEP Interpretation HDL Cholesterol Urine Creatinine Urine Total Protein 08/24/18 08/25/18 08/25/18 20:54 04:43 04:43 WBC RBC 3.41 L Hgb 9.1 L Hct 28.0 L MCV 82 L MCH 27 L RDW 17.0 H Plt Count 133 L [place] % (Auto) Eos % (Auto) Seg Neuts % (Manual) Lymphocytes % (Manual) Monocytes % (Manual) 10.0 H Eosinophils % (Manual) Basophils % (Manual) Seg Neutrophils # Man D-Dimer Sodium 136 L Chloride BUN 44 H Creatinine 2.6 H Glucose 193 H POC Glucose 214 H Hemoglobin A1c Calcium Phosphorus Iron Total Creatine Kinase CK-MB (CK-2) Albumin Eicbp-8-Phqxquksa PEP Interpretation HDL Cholesterol Urine Creatinine Urine Total Protein 08/25/18 08/25/18 08/25/18 08:04 13:43 16:39 WBC RBC Hgb Hct MCV MCH RDW Plt Count [place] % (Auto) Eos % (Auto) Seg Neuts % (Manual) Lymphocytes % (Manual) Monocytes % (Manual) Eosinophils % (Manual) Basophils % (Manual) Seg Neutrophils # Sadi D-Dimer Sodium Chloride BUN Creatinine Glucose POC Glucose 167 H 193 H 249 H Hemoglobin A1c Calcium Phosphorus Iron Total Creatine Kinase CK-MB (CK-2) Albumin Khqsz-8-Aphcqvvbr PEP Interpretation HDL Cholesterol Urine Creatinine Urine Total Protein 08/25/18 08/26/18 08/26/18 21:15 04:56 07:21 WBC RBC Hgb Hct MCV MCH RDW Plt Count [place] % (Auto) Eos % (Auto) Seg Neuts % (Manual) Lymphocytes % (Manual) Monocytes % (Manual) Eosinophils % (Manual) Basophils % (Manual) Seg Neutrophils # Sadi D-Dimer Sodium 133 L Chloride 96.3 L BUN 32 H Creatinine 2.1 H Glucose 186 H POC Glucose 176 H 183 H Hemoglobin A1c Calcium 8.3 L Phosphorus Iron Total Creatine Kinase CK-MB (CK-2) Albumin Kqqge-0-Xexucennm PEP Interpretation HDL Cholesterol Urine Creatinine Urine Total Protein 08/26/18 08/26/18 08/26/18 14:34 16:34 21:07 WBC RBC Hgb Hct MCV MCH RDW Plt Count [place] % (Auto) Eos % (Auto) Seg Neuts % (Manual) Lymphocytes % (Manual) Monocytes % (Manual) Eosinophils % (Manual) Basophils % (Manual) Seg Neutrophils # Man D-Dimer Sodium Chloride BUN Creatinine Glucose POC Glucose 165 H 206 H 185 H Hemoglobin A1c Calcium Phosphorus Iron Total Creatine Kinase CK-MB (CK-2) Albumin Hzvsl-6-Dstoxqnsq PEP Interpretation HDL Cholesterol Urine Creatinine Urine Total Protein 08/27/18 08/27/18 08/27/18 07:34 08:23 16:31 WBC RBC Hgb Hct MCV MCH RDW Plt Count [place] % (Auto) Eos % (Auto) Seg Neuts % (Manual) Lymphocytes % (Manual) Monocytes % (Manual) Eosinophils % (Manual) Basophils % (Manual) Seg Neutrophils # Sadi D-Dimer Sodium 135 L Chloride 97.3 L BUN 28 H Creatinine 2.4 H Glucose 130 H POC Glucose 136 H 229 H Hemoglobin A1c Calcium 8.0 L Phosphorus Iron Total Creatine Kinase CK-MB (CK-2) Albumin Qkvni-7-Otehdwydf PEP Interpretation HDL Cholesterol Urine Creatinine Urine Total Protein 08/27/18 08/28/18 08/28/18 21:32 04:40 07:48 WBC RBC Hgb Hct MCV MCH RDW Plt Count [place] % (Auto) Eos % (Auto) Seg Neuts % (Manual) Lymphocytes % (Manual) Monocytes % (Manual) Eosinophils % (Manual) Basophils % (Manual) Seg Neutrophils # Sadi D-Dimer Sodium 135 L Chloride 97.9 L BUN 25 H Creatinine 2.2 H Glucose 118 H POC Glucose 142 H 120 H Hemoglobin A1c Calcium Phosphorus Iron Total Creatine Kinase CK-MB (CK-2) Albumin Qjinf-2-Ulakbjcph PEP Interpretation HDL Cholesterol Urine Creatinine Urine Total Protein 08/28/18 08/28/18 08/29/18 17:11 20:52 04:29 WBC RBC Hgb Hct MCV MCH RDW Plt Count [place] % (Auto) Eos % (Auto) Seg Neuts % (Manual) Lymphocytes % (Manual) Monocytes % (Manual) Eosinophils % (Manual) Basophils % (Manual) Seg Neutrophils # Sadi D-Dimer Sodium 134 L Chloride 93.3 L BUN 36 H Creatinine 2.9 H Glucose 187 H POC Glucose 209 H 188 H Hemoglobin A1c Calcium Phosphorus Iron Total Creatine Kinase CK-MB (CK-2) Albumin Ghkvz-4-Qgiucxxwu PEP Interpretation HDL Cholesterol Urine Creatinine Urine Total Protein 08/29/18 08/29/18 08/29/18 08:21 16:54 22:22 WBC RBC Hgb Hct MCV MCH RDW Plt Count [place] % (Auto) Eos % (Auto) Seg Neuts % (Manual) Lymphocytes % (Manual) Monocytes % (Manual) Eosinophils % (Manual) Basophils % (Manual) Seg Neutrophils # Sadi D-Dimer Sodium Chloride BUN Creatinine Glucose POC Glucose 144 H 277 H 240 H Hemoglobin A1c Calcium Phosphorus Iron Total Creatine Kinase CK-MB (CK-2) Albumin Udgol-8-Fkugwafwd PEP Interpretation HDL Cholesterol Urine Creatinine Urine Total Protein 06/11/1008/30/18 08/30/18 04:17 04:17 07:56 WBC RBC 3.64 L Hgb 9.8 L Hct 29.6 L MCV 81 L MCH 27 L RDW 16.8 H Plt Count [place] % (Auto) Eos % (Auto) Seg Neuts % (Manual) Lymphocytes % (Manual) Monocytes % (Manual) Eosinophils % (Manual) Basophils % (Manual) Seg Neutrophils # Man D-Dimer Sodium 133 L Chloride 96.4 L BUN 33 H Creatinine 2.9 H Glucose 142 H POC Glucose 134 H Hemoglobin A1c Calcium Phosphorus Iron Total Creatine Kinase CK-MB (CK-2) Albumin Owbmu-3-Nisnyvarv PEP Interpretation HDL Cholesterol Urine Creatinine Urine Total Protein 08/30/18 08/30/18 08/31/18 17:11 20:58 07:57 WBC RBC Hgb Hct MCV MCH RDW Plt Count [place] % (Auto) Eos % (Auto) Seg Neuts % (Manual) Lymphocytes % (Manual) Monocytes % (Manual) Eosinophils % (Manual) Basophils % (Manual) Seg Neutrophils # Man D-Dimer Sodium Chloride BUN Creatinine Glucose POC Glucose 223 H 238 H 143 H Hemoglobin A1c Calcium Phosphorus Iron Total Creatine Kinase CK-MB (CK-2) Albumin Eymfm-5-Bmewpfxds PEP Interpretation HDL Cholesterol Urine Creatinine Urine Total Protein 08/31/18 08/31/18 08/31/18 09:06 11:13 16:45 WBC RBC Hgb Hct MCV MCH RDW Plt Count [place] % (Auto) Eos % (Auto) Seg Neuts % (Manual) Lymphocytes % (Manual) Monocytes % (Manual) Eosinophils % (Manual) Basophils % (Manual) Seg Neutrophils # Man D-Dimer Sodium 130 L Chloride 87.5 L BUN 47 H Creatinine 3.5 H Glucose 214 H POC Glucose 223 H 320 H Hemoglobin A1c Calcium Phosphorus Iron Total Creatine Kinase CK-MB (CK-2) Albumin Cifad-3-Nzsutltfm PEP Interpretation HDL Cholesterol Urine Creatinine Urine Total Protein 08/31/18 09/01/18 09/01/18 21:48 05:52 07:25 WBC RBC Hgb Hct MCV MCH RDW Plt Count [place] % (Auto) Eos % (Auto) Seg Neuts % (Manual) Lymphocytes % (Manual) Monocytes % (Manual) Eosinophils % (Manual) Basophils % (Manual) Seg Neutrophils # Man D-Dimer Sodium 129 L Chloride 91.1 L BUN 57 H Creatinine 3.5 H Glucose 138 H POC Glucose 197 H 133 H Hemoglobin A1c Calcium Phosphorus Iron Total Creatine Kinase CK-MB (CK-2) Albumin Qgeti-6-Ypzoarkgq PEP Interpretation HDL Cholesterol Urine Creatinine Urine Total Protein 09/01/18 09/01/18 09/01/18 14:47 16:56 21:24 WBC RBC Hgb Hct MCV MCH RDW Plt Count [place] % (Auto) Eos % (Auto) Seg Neuts % (Manual) Lymphocytes % (Manual) Monocytes % (Manual) Eosinophils % (Manual) Basophils % (Manual) Seg Neutrophils # Man D-Dimer Sodium Chloride BUN Creatinine Glucose POC Glucose 230 H 264 H 233 H Hemoglobin A1c Calcium Phosphorus Iron Total Creatine Kinase CK-MB (CK-2) Albumin Dansr-1-Ggictzohu PEP Interpretation HDL Cholesterol Urine Creatinine Urine Total Protein 09/02/18 09/02/18 09/02/18 06:46 07:55 11:47 WBC RBC Hgb Hct MCV MCH RDW Plt Count [place] % (Auto) Eos % (Auto) Seg Neuts % (Manual) Lymphocytes % (Manual) Monocytes % (Manual) Eosinophils % (Manual) Basophils % (Manual) Seg Neutrophils # Man D-Dimer Sodium 129 L Chloride 92.4 L BUN 42 H Creatinine 3.5 H Glucose 138 H POC Glucose 140 H 186 H Hemoglobin A1c Calcium Phosphorus Iron Total Creatine Kinase CK-MB (CK-2) Albumin Mirxx-9-Ifflljvyf PEP Interpretation HDL Cholesterol Urine Creatinine Urine Total Protein 09/02/18 09/03/18 09/03/18 21:44 07:55 17:07 WBC RBC Hgb Hct MCV MCH RDW Plt Count [place] % (Auto) Eos % (Auto) Seg Neuts % (Manual) Lymphocytes % (Manual) Monocytes % (Manual) Eosinophils % (Manual) Basophils % (Manual) Seg Neutrophils # Man D-Dimer Sodium Chloride BUN Creatinine Glucose POC Glucose 224 H 127 H 249 H Hemoglobin A1c Calcium Phosphorus Iron Total Creatine Kinase CK-MB (CK-2) Albumin Fpjbz-9-Dlnnvrrve PEP Interpretation HDL Cholesterol Urine Creatinine Urine Total Protein 09/03/18 09/04/18 09/04/18 21:23 07:52 11:13 WBC RBC Hgb Hct MCV MCH RDW Plt Count [place] % (Auto) Eos % (Auto) Seg Neuts % (Manual) Lymphocytes % (Manual) Monocytes % (Manual) Eosinophils % (Manual) Basophils % (Manual) Seg Neutrophils # Man D-Dimer Sodium Chloride BUN Creatinine Glucose POC Glucose 212 H 118 H 186 H Hemoglobin A1c Calcium Phosphorus Iron Total Creatine Kinase CK-MB (CK-2) Albumin Nztwo-4-Bthnfhkjz PEP Interpretation HDL Cholesterol Urine Creatinine Urine Total Protein 09/04/18 09/04/18 09/05/18 16:43 21:32 05:18 WBC RBC Hgb Hct MCV MCH RDW Plt Count [place] % (Auto) Eos % (Auto) Seg Neuts % (Manual) Lymphocytes % (Manual) Monocytes % (Manual) Eosinophils % (Manual) Basophils % (Manual) Seg Neutrophils # Man D-Dimer Sodium 130 L Chloride 91.5 L BUN 47 H Creatinine 4.7 H Glucose 199 H POC Glucose 155 H 235 H Hemoglobin A1c Calcium Phosphorus Iron Total Creatine Kinase CK-MB (CK-2) Albumin Erfpo-5-Zbyvdtpor PEP Interpretation HDL Cholesterol Urine Creatinine Urine Total Protein 09/05/18 07:39 WBC RBC Hgb Hct MCV MCH RDW Plt Count [place] % (Auto) Eos % (Auto) Seg Neuts % (Manual) Lymphocytes % (Manual) Monocytes % (Manual) Eosinophils % (Manual) Basophils % (Manual) Seg Neutrophils # Man D-Dimer Sodium Chloride BUN Creatinine Glucose POC Glucose 181 H Hemoglobin A1c Calcium Phosphorus Iron Total Creatine Kinase CK-MB (CK-2) Albumin Oyfgh-1-Xosllsuiz PEP Interpretation HDL Cholesterol Urine Creatinine Urine Total Protein Allied health notes reviewed: nursing
[2018-09-05] MEDS: VITAMIN D3 PO SCH (18:25)
[2018-09-05] MEDS: BABY ASPIRIN PO SCH (18:25)
[2018-09-05] MEDS: NEURONTIN PO SCH (22:36)
[2018-09-06] MEDS: APRESOLINE PO SCH ×3 (06:25→23:27)
--- NOTE | 2018-09-06 06:56 | Progress Note ---
Assessment and Plan CHF (congestive heart failure) CKD (chronic kidney disease) HANSEN (dyspnea on exertion) Elevated d-dimer Essential hypertension Morbid obesity Sleep apnea with use of continuous positive airway pressure (CPAP) - continue supplemental oxygen as needed to keep O2 sats > 90% - continue bronchodilators with pulmonary hygiene per RT - continue HD/UF for toxin and volume clearance - PT/OT- increase activity as tolerated - continue BIPAP therapy qhs and prn during the day - weight loss counseled, life style modifications - continue chronic disease management per admitting physician - Stress ulcer prophylaxis - Flu & pneumovax per protocol - outpatient pulmonary clinic f/up on discharge Subjective Date of service: 09/06/18 Principal diagnosis: CHF; CKD; HANSEN; Elevated d-dimer; Essential HTN; Morbid obesity; MABRELLA Interval history: Patient is seen today for: CHF (congestive heart failure); CKD (chronic kidney disease); HANSEN (dyspnea on exertion); Elevated d-dimer; Essential hypertension; Morbid obesity; Sleep apnea with use of continuous positive airway pressure (CPAP) Seen and examined at bedside; 24hour events reviewed, vitals, labs, medications, cahrt reviewed.; nursing and respiratory care staff consulted; no adverse overnight events reported to me; had HD yesterday, tolerated it well denies acute chest pains or palpitations , no shortness of breath, lying peacefully in bed with CPAP on; no fevers, no chills, no nausea or vomiting, no diarrhea Objective Vital Signs - 12hr 09/05/18 09/05/18 09/05/18 21:21 22:00 22:37 Temperature 97.9 F Pulse Rate 73 73 Respiratory 16 Rate Respiratory 18 Rate [denies] Blood Pressure 115/47 115/47 O2 Sat by Pulse 98 Oximetry 09/06/18 09/06/18 05:44 06:25 Temperature 98.0 F Pulse Rate 82 82 Respiratory 16 Rate Respiratory Rate [denies] Blood Pressure 95/45 95/45 O2 Sat by Pulse 95 Oximetry Constitutional: no acute distress, alert, other (Morbidly Obese middle aged CM) Eyes: non-icteric ENT: oropharynx moist, other (mallampati 4) Neck: supple, no JVD, other (large neck circumference) Effort: mildly labored Ascultation: Bilateral: diminished breath sounds, rhonchi (scant in bases) Percussion: Bilateral: not dull Cardiovascular: regular rate and rhythm Gastrointestinal: normoactive bowel sounds, soft, non-tender, other (protuberant) Integumentary: cellulitis, other (Cellulitis and wounds in both lower legs.) Extremities: no cyanosis, pink and warm, pulses normal, edema (trace to 1+) Neurologic: normal mental status, non-focal exam, pupils equal and round, CN II- XII normal Psychiatric: mood appropriate, affect normal CBC and BMP: 08/30/18 04:17 09/06/18 04:15 ABG, PT/INR, D-dimer: PT/INR, D-dimer 463.24 ng/mlDDU (0-234) H 08/15/18 21:24 Abnormal lab findings: Abnormal Labs 08/15/18 08/15/18 08/15/18 18:02 18:54 18:54 WBC RBC 3.61 L Hgb 9.8 L Hct 30.1 L MCV MCH 27 L RDW 16.8 H Plt Count [place] % (Auto) 10.7 H Eos % (Auto) 5.9 H Seg Neuts % (Manual) Lymphocytes % (Manual) Monocytes % (Manual) Eosinophils % (Manual) Basophils % (Manual) Seg Neutrophils # Man D-Dimer Sodium Chloride 107.7 H BUN 25 H Creatinine 2.5 H Glucose 159 H POC Glucose 124 H Hemoglobin A1c Calcium Phosphorus Iron Total Creatine Kinase CK-MB (CK-2) Albumin 3.2 L Umqrb-4-Dnxwxybtm PEP Interpretation HDL Cholesterol Urine Creatinine Urine Total Protein 08/15/18 08/15/18 08/16/18 21:24 21:24 03:37 WBC RBC Hgb Hct MCV MCH RDW Plt Count [place] % (Auto) Eos % (Auto) Seg Neuts % (Manual) Lymphocytes % (Manual) Monocytes % (Manual) Eosinophils % (Manual) Basophils % (Manual) Seg Neutrophils # Man D-Dimer 463.24 H Sodium Chloride BUN Creatinine Glucose POC Glucose Hemoglobin A1c 7.4 H Calcium Phosphorus Iron Total Creatine Kinase 340 H CK-MB (CK-2) 5.0 H Albumin Hbhxs-1-Erlaihdpf PEP Interpretation HDL Cholesterol Urine Creatinine Urine Total Protein 08/16/18 08/16/18 08/16/18 03:37 07:54 12:01 WBC RBC Hgb Hct MCV MCH RDW Plt Count [place] % (Auto) Eos % (Auto) Seg Neuts % (Manual) Lymphocytes % (Manual) Monocytes % (Manual) Eosinophils % (Manual) Basophils % (Manual) Seg Neutrophils # Sadi D-Dimer Sodium Chloride BUN Creatinine Glucose POC Glucose 113 H 179 H Hemoglobin A1c Calcium Phosphorus Iron Total Creatine Kinase CK-MB (CK-2) Albumin Fmxuy-6-Sxmqreiqk PEP Interpretation HDL Cholesterol 37 L Urine Creatinine Urine Total Protein 08/16/18 08/16/18 08/16/18 13:52 17:44 21:21 WBC RBC Hgb Hct MCV MCH RDW Plt Count [place] % (Auto) Eos % (Auto) Seg Neuts % (Manual) Lymphocytes % (Manual) Monocytes % (Manual) Eosinophils % (Manual) Basophils % (Manual) Seg Neutrophils # Sadi D-Dimer Sodium Chloride BUN Creatinine Glucose POC Glucose 221 H 165 H Hemoglobin A1c Calcium Phosphorus Iron 30 L Total Creatine Kinase CK-MB (CK-2) Albumin Yaywh-9-Ymlutnwqn PEP Interpretation HDL Cholesterol Urine Creatinine Urine Total Protein 08/17/18 08/17/18 08/17/18 04:00 07:30 07:30 WBC RBC Hgb 10.3 L Hct 31.5 L MCV 82 L MCH 27 L RDW 16.8 H Plt Count [place] % (Auto) 14.0 H Eos % (Auto) 6.6 H Seg Neuts % (Manual) Lymphocytes % (Manual) Monocytes % (Manual) Eosinophils % (Manual) Basophils % (Manual) Seg Neutrophils # Sadi D-Dimer Sodium Chloride BUN 32 H Creatinine 2.9 H Glucose 180 H POC Glucose Hemoglobin A1c Calcium Phosphorus Iron Total Creatine Kinase CK-MB (CK-2) Albumin Qefcv-2-Ncubhbwsx PEP Interpretation HDL Cholesterol Urine Creatinine 22.4 H Urine Total Protein 79 H 08/17/18 08/17/18 08/17/18 07:34 11:13 12:17 WBC RBC Hgb Hct MCV MCH RDW Plt Count [place] % (Auto) Eos % (Auto) Seg Neuts % (Manual) Lymphocytes % (Manual) Monocytes % (Manual) Eosinophils % (Manual) Basophils % (Manual) Seg Neutrophils # Sadi D-Dimer Sodium Chloride BUN Creatinine Glucose POC Glucose 169 H 207 H Hemoglobin A1c Calcium Phosphorus Iron Total Creatine Kinase CK-MB (CK-2) Albumin 2.9 L Ixcwu-3-Perbmnimg 0.4 H PEP Interpretation see below H HDL Cholesterol Urine Creatinine Urine Total Protein 08/17/18 08/17/18 08/18/18 16:36 21:17 07:05 WBC RBC Hgb Hct MCV MCH RDW Plt Count [place] % (Auto) Eos % (Auto) Seg Neuts % (Manual) Lymphocytes % (Manual) Monocytes % (Manual) Eosinophils % (Manual) Basophils % (Manual) Seg Neutrophils # Sadi D-Dimer Sodium 134 L Chloride 95.9 L BUN 43 H Creatinine 3.8 H Glucose 150 H POC Glucose 184 H 209 H Hemoglobin A1c Calcium Phosphorus Iron Total Creatine Kinase CK-MB (CK-2) Albumin Cgrxe-8-Wqnxmbbgx PEP Interpretation HDL Cholesterol Urine Creatinine Urine Total Protein 08/18/18 08/18/18 08/18/18 07:53 08:34 11:53 WBC RBC Hgb 10.8 L Hct 33.8 L MCV MCH 27 L RDW 16.3 H Plt Count [place] % (Auto) Eos % (Auto) Seg Neuts % (Manual) Lymphocytes % (Manual) Monocytes % (Manual) Eosinophils % (Manual) Basophils % (Manual) Seg Neutrophils # Sadi Green-Natalya Sodium Chloride BUN Creatinine Glucose POC Glucose 139 H 191 H Hemoglobin A1c Calcium Phosphorus Iron Total Creatine Kinase CK-MB (CK-2) Albumin Upzoj-1-Ztareifdt PEP Interpretation HDL Cholesterol Urine Creatinine Urine Total Protein 08/18/18 08/18/18 08/19/18 15:54 20:49 05:28 WBC RBC Hgb 9.7 L Hct 30.1 L MCV 82 L MCH 26 L RDW 16.6 H Plt Count 136 L [place] % (Auto) Eos % (Auto) Seg Neuts % (Manual) Lymphocytes % (Manual) Monocytes % (Manual) Eosinophils % (Manual) Basophils % (Manual) Seg Neutrophils # Sadi D-Natalya Sodium Chloride BUN Creatinine Glucose POC Glucose 150 H 138 H Hemoglobin A1c Calcium Phosphorus Iron Total Creatine Kinase CK-MB (CK-2) Albumin Zczuc-4-Mfixodzmr PEP Interpretation HDL Cholesterol Urine Creatinine Urine Total Protein 08/19/18 08/19/18 08/19/18 05:28 07:43 11:57 WBC RBC Hgb Hct MCV MCH RDW Plt Count [place] % (Auto) Eos % (Auto) Seg Neuts % (Manual) Lymphocytes % (Manual) Monocytes % (Manual) Eosinophils % (Manual) Basophils % (Manual) Seg Neutrophils # Sadi D-Dimer Sodium 134 L Chloride 96.2 L BUN 55 H Creatinine 4.4 H Glucose 118 H POC Glucose 162 H 280 H Hemoglobin A1c Calcium Phosphorus Iron Total Creatine Kinase CK-MB (CK-2) Albumin Gfcux-6-Lgehfiqvf PEP Interpretation HDL Cholesterol Urine Creatinine Urine Total Protein 08/19/18 08/19/18 08/20/18 15:41 21:44 04:53 WBC 3.5 L RBC 3.58 L Hgb 9.4 L Hct 29.5 L MCV 83 L MCH 26 L RDW 16.4 H Plt Count 121 L [place] % (Auto) Eos % (Auto) Seg Neuts % (Manual) Lymphocytes % (Manual) Monocytes % (Manual) 16.0 H Eosinophils % (Manual) Basophils % (Manual) 3.0 H Seg Neutrophils # Man 1.6 L D-Dimer Sodium Chloride BUN Creatinine Glucose POC Glucose 167 H 234 H Hemoglobin A1c Calcium Phosphorus Iron Total Creatine Kinase CK-MB (CK-2) Albumin Vqfbo-3-Buixnowkt PEP Interpretation HDL Cholesterol Urine Creatinine Urine Total Protein 08/20/18 08/20/18 08/20/18 04:53 08:13 12:09 WBC RBC Hgb Hct MCV MCH RDW Plt Count [place] % (Auto) Eos % (Auto) Seg Neuts % (Manual) Lymphocytes % (Manual) Monocytes % (Manual) Eosinophils % (Manual) Basophils % (Manual) Seg Neutrophils # Man D-Dimer Sodium 136 L Chloride BUN 57 H Creatinine 3.3 H Glucose 136 H POC Glucose 124 H Hemoglobin A1c Calcium Phosphorus 5.50 H Iron Total Creatine Kinase CK-MB (CK-2) Albumin Xfhfq-3-Uxfvzkyvr PEP Interpretation HDL Cholesterol Urine Creatinine 56.1 H Urine Total Protein 08/20/18 08/20/18 08/20/18 12:49 18:26 20:53 WBC RBC Hgb Hct MCV MCH RDW Plt Count [place] % (Auto) Eos % (Auto) Seg Neuts % (Manual) Lymphocytes % (Manual) Monocytes % (Manual) Eosinophils % (Manual) Basophils % (Manual) Seg Neutrophils # Man D-Dimer Sodium Chloride BUN Creatinine Glucose POC Glucose 145 H 175 H 184 H Hemoglobin A1c Calcium Phosphorus Iron Total Creatine Kinase CK-MB (CK-2) Albumin Kkidf-6-Fbgtomtvg PEP Interpretation HDL Cholesterol Urine Creatinine Urine Total Protein 08/21/18 08/21/18 08/21/18 04:28 04:28 08:58 WBC 3.8 L RBC 3.42 L Hgb 9.2 L Hct 28.4 L MCV 83 L MCH 27 L RDW 16.4 H Plt Count 126 L [place] % (Auto) Eos % (Auto) Seg Neuts % (Manual) Lymphocytes % (Manual) Monocytes % (Manual) 15.0 H Eosinophils % (Manual) Basophils % (Manual) Seg Neutrophils # Man D-Dimer Sodium 134 L Chloride 96.5 L BUN 59 H Creatinine 3.4 H Glucose 190 H POC Glucose 159 H Hemoglobin A1c Calcium Phosphorus 5.10 H Iron Total Creatine Kinase CK-MB (CK-2) Albumin Wawvk-2-Rlzwkrosu PEP Interpretation HDL Cholesterol Urine Creatinine Urine Total Protein 08/21/18 08/21/18 08/21/18 12:25 17:10 21:43 WBC RBC Hgb Hct MCV MCH RDW Plt Count [place] % (Auto) Eos % (Auto) Seg Neuts % (Manual) Lymphocytes % (Manual) Monocytes % (Manual) Eosinophils % (Manual) Basophils % (Manual) Seg Neutrophils # Man D-Dimer Sodium Chloride BUN Creatinine Glucose POC Glucose 222 H 152 H 150 H Hemoglobin A1c Calcium Phosphorus Iron Total Creatine Kinase CK-MB (CK-2) Albumin Xppql-1-Xmnncmhnq PEP Interpretation HDL Cholesterol Urine Creatinine Urine Total Protein 08/22/18 08/22/18 08/22/18 04:50 04:51 08:08 WBC 3.7 L RBC 3.37 L Hgb 9.0 L Hct 27.8 L MCV 83 L MCH 27 L RDW 16.9 H Plt Count 124 L [place] % (Auto) Eos % (Auto) Seg Neuts % (Manual) Lymphocytes % (Manual) Monocytes % (Manual) 13.0 H Eosinophils % (Manual) 11.0 H Basophils % (Manual) Seg Neutrophils # Man 1.6 L D-Dimer Sodium 135 L Chloride 97.4 L BUN 64 H Creatinine 3.5 H Glucose 114 H POC Glucose 117 H Hemoglobin A1c Calcium Phosphorus 4.90 H Iron Total Creatine Kinase CK-MB (CK-2) Albumin Xmohy-7-Jpxmrnmkl PEP Interpretation HDL Cholesterol Urine Creatinine Urine Total Protein 08/22/18 08/22/18 08/23/18 14:48 21:36 05:09 WBC 4.3 L RBC 3.60 L Hgb 9.6 L Hct 29.6 L MCV 82 L MCH 27 L RDW 16.6 H Plt Count 134 L [place] % (Auto) Eos % (Auto) Seg Neuts % (Manual) 38.0 L Lymphocytes % (Manual) 51.0 H Monocytes % (Manual) 8.0 H Eosinophils % (Manual) Basophils % (Manual) Seg Neutrophils # Sadi 1.6 L D-Dimer Sodium Chloride BUN Creatinine Glucose POC Glucose 211 H 268 H Hemoglobin A1c Calcium Phosphorus Iron Total Creatine Kinase CK-MB (CK-2) Albumin Fvyij-0-Ibzmegzvw PEP Interpretation HDL Cholesterol Urine Creatinine Urine Total Protein 08/23/18 08/23/18 08/23/18 05:09 07:44 14:02 WBC RBC Hgb Hct MCV MCH RDW Plt Count [place] % (Auto) Eos % (Auto) Seg Neuts % (Manual) Lymphocytes % (Manual) Monocytes % (Manual) Eosinophils % (Manual) Basophils % (Manual) Seg Neutrophils # Sadi D-Dimer Sodium Chloride BUN 45 H Creatinine 2.6 H Glucose 174 H POC Glucose 240 H 161 H Hemoglobin A1c Calcium Phosphorus Iron Total Creatine Kinase CK-MB (CK-2) Albumin Wcdso-7-Hqpnezoub PEP Interpretation HDL Cholesterol Urine Creatinine Urine Total Protein 08/23/18 08/23/18 08/24/18 17:33 20:32 05:09 WBC RBC Hgb Hct MCV MCH RDW Plt Count [place] % (Auto) Eos % (Auto) Seg Neuts % (Manual) Lymphocytes % (Manual) Monocytes % (Manual) Eosinophils % (Manual) Basophils % (Manual) Seg Neutrophils # Sadi D-Dimer Sodium 135 L Chloride 97.4 L BUN 38 H Creatinine 2.3 H Glucose 183 H POC Glucose 217 H 208 H Hemoglobin A1c Calcium Phosphorus Iron Total Creatine Kinase CK-MB (CK-2) Albumin Inena-8-Aqdxkyqwg PEP Interpretation HDL Cholesterol Urine Creatinine Urine Total Protein 08/24/18 08/24/18 08/24/18 07:49 11:32 16:44 WBC RBC Hgb Hct MCV MCH RDW Plt Count [place] % (Auto) Eos % (Auto) Seg Neuts % (Manual) Lymphocytes % (Manual) Monocytes % (Manual) Eosinophils % (Manual) Basophils % (Manual) Seg Neutrophils # Man D-Dimer Sodium Chloride BUN Creatinine Glucose POC Glucose 171 H 271 H 168 H Hemoglobin A1c Calcium Phosphorus Iron Total Creatine Kinase CK-MB (CK-2) Albumin Hnrrb-9-Fcguwkzms PEP Interpretation HDL Cholesterol Urine Creatinine Urine Total Protein 08/24/18 08/25/18 08/25/18 20:54 04:43 04:43 WBC RBC 3.41 L Hgb 9.1 L Hct 28.0 L MCV 82 L MCH 27 L RDW 17.0 H Plt Count 133 L [place] % (Auto) Eos % (Auto) Seg Neuts % (Manual) Lymphocytes % (Manual) Monocytes % (Manual) 10.0 H Eosinophils % (Manual) Basophils % (Manual) Seg Neutrophils # Man D-Dimer Sodium 136 L Chloride BUN 44 H Creatinine 2.6 H Glucose 193 H POC Glucose 214 H Hemoglobin A1c Calcium Phosphorus Iron Total Creatine Kinase CK-MB (CK-2) Albumin Evdrj-6-Bjznqjwso PEP Interpretation HDL Cholesterol Urine Creatinine Urine Total Protein 08/25/18 08/25/18 08/25/18 08:04 13:43 16:39 WBC RBC Hgb Hct MCV MCH RDW Plt Count [place] % (Auto) Eos % (Auto) Seg Neuts % (Manual) Lymphocytes % (Manual) Monocytes % (Manual) Eosinophils % (Manual) Basophils % (Manual) Seg Neutrophils # Sadi D-Dimer Sodium Chloride BUN Creatinine Glucose POC Glucose 167 H 193 H 249 H Hemoglobin A1c Calcium Phosphorus Iron Total Creatine Kinase CK-MB (CK-2) Albumin Triqr-8-Uumfirhiy PEP Interpretation HDL Cholesterol Urine Creatinine Urine Total Protein 08/25/18 08/26/18 08/26/18 21:15 04:56 07:21 WBC RBC Hgb Hct MCV MCH RDW Plt Count [place] % (Auto) Eos % (Auto) Seg Neuts % (Manual) Lymphocytes % (Manual) Monocytes % (Manual) Eosinophils % (Manual) Basophils % (Manual) Seg Neutrophils # Man D-Dimer Sodium 133 L Chloride 96.3 L BUN 32 H Creatinine 2.1 H Glucose 186 H POC Glucose 176 H 183 H Hemoglobin A1c Calcium 8.3 L Phosphorus Iron Total Creatine Kinase CK-MB (CK-2) Albumin Jkyhp-1-Nayblmfgo PEP Interpretation HDL Cholesterol Urine Creatinine Urine Total Protein 08/26/18 08/26/18 08/26/18 14:34 16:34 21:07 WBC RBC Hgb Hct MCV MCH RDW Plt Count [place] % (Auto) Eos % (Auto) Seg Neuts % (Manual) Lymphocytes % (Manual) Monocytes % (Manual) Eosinophils % (Manual) Basophils % (Manual) Seg Neutrophils # Sadi D-Dimer Sodium Chloride BUN Creatinine Glucose POC Glucose 165 H 206 H 185 H Hemoglobin A1c Calcium Phosphorus Iron Total Creatine Kinase CK-MB (CK-2) Albumin Qfmlm-4-Twyriswdo PEP Interpretation HDL Cholesterol Urine Creatinine Urine Total Protein 08/27/18 08/27/18 08/27/18 07:34 08:23 16:31 WBC RBC Hgb Hct MCV MCH RDW Plt Count [place] % (Auto) Eos % (Auto) Seg Neuts % (Manual) Lymphocytes % (Manual) Monocytes % (Manual) Eosinophils % (Manual) Basophils % (Manual) Seg Neutrophils # Man D-Dimer Sodium 135 L Chloride 97.3 L BUN 28 H Creatinine 2.4 H Glucose 130 H POC Glucose 136 H 229 H Hemoglobin A1c Calcium 8.0 L Phosphorus Iron Total Creatine Kinase CK-MB (CK-2) Albumin Sjyrx-1-Eavoptvwq PEP Interpretation HDL Cholesterol Urine Creatinine Urine Total Protein 08/27/18 08/28/18 08/28/18 21:32 04:40 07:48 WBC RBC Hgb Hct MCV MCH RDW Plt Count [place] % (Auto) Eos % (Auto) Seg Neuts % (Manual) Lymphocytes % (Manual) Monocytes % (Manual) Eosinophils % (Manual) Basophils % (Manual) Seg Neutrophils # Man D-Dimer Sodium 135 L Chloride 97.9 L BUN 25 H Creatinine 2.2 H Glucose 118 H POC Glucose 142 H 120 H Hemoglobin A1c Calcium Phosphorus Iron Total Creatine Kinase CK-MB (CK-2) Albumin Qbsgk-5-Jhnsocvnm PEP Interpretation HDL Cholesterol Urine Creatinine Urine Total Protein 08/28/18 08/28/18 08/29/18 17:11 20:52 04:29 WBC RBC Hgb Hct MCV MCH RDW Plt Count [place] % (Auto) Eos % (Auto) Seg Neuts % (Manual) Lymphocytes % (Manual) Monocytes % (Manual) Eosinophils % (Manual) Basophils % (Manual) Seg Neutrophils # Man D-Dimer Sodium 134 L Chloride 93.3 L BUN 36 H Creatinine 2.9 H Glucose 187 H POC Glucose 209 H 188 H Hemoglobin A1c Calcium Phosphorus Iron Total Creatine Kinase CK-MB (CK-2) Albumin Uhsvb-2-Maxfxhhhh PEP Interpretation HDL Cholesterol Urine Creatinine Urine Total Protein 08/29/18 08/29/18 08/29/18 08:21 16:54 22:22 WBC RBC Hgb Hct MCV MCH RDW Plt Count [place] % (Auto) Eos % (Auto) Seg Neuts % (Manual) Lymphocytes % (Manual) Monocytes % (Manual) Eosinophils % (Manual) Basophils % (Manual) Seg Neutrophils # Sadi D-Dimer Sodium Chloride BUN Creatinine Glucose POC Glucose 144 H 277 H 240 H Hemoglobin A1c Calcium Phosphorus Iron Total Creatine Kinase CK-MB (CK-2) Albumin Xkjmj-2-Rzpaprmeo PEP Interpretation HDL Cholesterol Urine Creatinine Urine Total Protein 08/30/18 08/30/18 08/30/18 04:17 04:17 07:56 WBC RBC 3.64 L Hgb 9.8 L Hct 29.6 L MCV 81 L MCH 27 L RDW 16.8 H Plt Count [place] % (Auto) Eos % (Auto) Seg Neuts % (Manual) Lymphocytes % (Manual) Monocytes % (Manual) Eosinophils % (Manual) Basophils % (Manual) Seg Neutrophils # Sadi D-Dimer Sodium 133 L Chloride 96.4 L BUN 33 H Creatinine 2.9 H Glucose 142 H POC Glucose 134 H Hemoglobin A1c Calcium Phosphorus Iron Total Creatine Kinase CK-MB (CK-2) Albumin Yaxji-2-Horpszfbw PEP Interpretation HDL Cholesterol Urine Creatinine Urine Total Protein 08/30/18 08/30/18 08/31/18 17:11 20:58 07:57 WBC RBC Hgb Hct MCV MCH RDW Plt Count [place] % (Auto) Eos % (Auto) Seg Neuts % (Manual) Lymphocytes % (Manual) Monocytes % (Manual) Eosinophils % (Manual) Basophils % (Manual) Seg Neutrophils # Sadi D-Dimer Sodium Chloride BUN Creatinine Glucose POC Glucose 223 H 238 H 143 H Hemoglobin A1c Calcium Phosphorus Iron Total Creatine Kinase CK-MB (CK-2) Albumin Ozaty-2-Tevouulzq PEP Interpretation HDL Cholesterol Urine Creatinine Urine Total Protein 08/31/18 08/31/18 08/31/18 09:06 11:13 16:45 WBC RBC Hgb Hct MCV MCH RDW Plt Count [place] % (Auto) Eos % (Auto) Seg Neuts % (Manual) Lymphocytes % (Manual) Monocytes % (Manual) Eosinophils % (Manual) Basophils % (Manual) Seg Neutrophils # Man D-Dimer Sodium 130 L Chloride 87.5 L BUN 47 H Creatinine 3.5 H Glucose 214 H POC Glucose 223 H 320 H Hemoglobin A1c Calcium Phosphorus Iron Total Creatine Kinase CK-MB (CK-2) Albumin Vxlme-5-Ovjzoxuwx PEP Interpretation HDL Cholesterol Urine Creatinine Urine Total Protein 08/31/18 09/01/18 09/01/18 21:48 05:52 07:25 WBC RBC Hgb Hct MCV MCH RDW Plt Count [place] % (Auto) Eos % (Auto) Seg Neuts % (Manual) Lymphocytes % (Manual) Monocytes % (Manual) Eosinophils % (Manual) Basophils % (Manual) Seg Neutrophils # Sadi D-Dimer Sodium 129 L Chloride 91.1 L BUN 57 H Creatinine 3.5 H Glucose 138 H POC Glucose 197 H 133 H Hemoglobin A1c Calcium Phosphorus Iron Total Creatine Kinase CK-MB (CK-2) Albumin Ohfsi-5-Isokihbmz PEP Interpretation HDL Cholesterol Urine Creatinine Urine Total Protein 09/01/18 09/01/18 09/01/18 14:47 16:56 21:24 WBC RBC Hgb Hct MCV MCH RDW Plt Count [place] % (Auto) Eos % (Auto) Seg Neuts % (Manual) Lymphocytes % (Manual) Monocytes % (Manual) Eosinophils % (Manual) Basophils % (Manual) Seg Neutrophils # Sadi D-Dimer Sodium Chloride BUN Creatinine Glucose POC Glucose 230 H 264 H 233 H Hemoglobin A1c Calcium Phosphorus Iron Total Creatine Kinase CK-MB (CK-2) Albumin Qcolg-0-Famagvimk PEP Interpretation HDL Cholesterol Urine Creatinine Urine Total Protein 09/02/18 09/02/18 09/02/18 06:46 07:55 11:47 WBC RBC Hgb Hct MCV MCH RDW Plt Count [place] % (Auto) Eos % (Auto) Seg Neuts % (Manual) Lymphocytes % (Manual) Monocytes % (Manual) Eosinophils % (Manual) Basophils % (Manual) Seg Neutrophils # Sadi D-Dimer Sodium 129 L Chloride 92.4 L BUN 42 H Creatinine 3.5 H Glucose 138 H POC Glucose 140 H 186 H Hemoglobin A1c Calcium Phosphorus Iron Total Creatine Kinase CK-MB (CK-2) Albumin Czqke-6-Dpkeuqoph PEP Interpretation HDL Cholesterol Urine Creatinine Urine Total Protein 09/02/18 09/03/18 09/03/18 21:44 07:55 17:07 WBC RBC Hgb Hct MCV MCH RDW Plt Count [place] % (Auto) Eos % (Auto) Seg Neuts % (Manual) Lymphocytes % (Manual) Monocytes % (Manual) Eosinophils % (Manual) Basophils % (Manual) Seg Neutrophils # Sadi D-Dimer Sodium Chloride BUN Creatinine Glucose POC Glucose 224 H 127 H 249 H Hemoglobin A1c Calcium Phosphorus Iron Total Creatine Kinase CK-MB (CK-2) Albumin Naqeu-7-Prsocpaui PEP Interpretation HDL Cholesterol Urine Creatinine Urine Total Protein 09/03/18 09/04/18 09/04/18 21:23 07:52 11:13 WBC RBC Hgb Hct MCV MCH RDW Plt Count [place] % (Auto) Eos % (Auto) Seg Neuts % (Manual) Lymphocytes % (Manual) Monocytes % (Manual) Eosinophils % (Manual) Basophils % (Manual) Seg Neutrophils # Sadi D-Dimer Sodium Chloride BUN Creatinine Glucose POC Glucose 212 H 118 H 186 H Hemoglobin A1c Calcium Phosphorus Iron Total Creatine Kinase CK-MB (CK-2) Albumin Cnbsl-4-Xczvspcor PEP Interpretation HDL Cholesterol Urine Creatinine Urine Total Protein 09/04/18 09/04/18 09/05/18 16:43 21:32 05:18 WBC RBC Hgb Hct MCV MCH RDW Plt Count [place] % (Auto) Eos % (Auto) Seg Neuts % (Manual) Lymphocytes % (Manual) Monocytes % (Manual) Eosinophils % (Manual) Basophils % (Manual) Seg Neutrophils # Sadi D-Dimer Sodium 130 L Chloride 91.5 L BUN 47 H Creatinine 4.7 H Glucose 199 H POC Glucose 155 H 235 H Hemoglobin A1c Calcium Phosphorus Iron Total Creatine Kinase CK-MB (CK-2) Albumin Quagh-5-Mwxelvtjo PEP Interpretation HDL Cholesterol Urine Creatinine Urine Total Protein 09/05/18 09/05/18 09/05/18 07:39 16:40 21:24 WBC RBC Hgb Hct MCV MCH RDW Plt Count [place] % (Auto) Eos % (Auto) Seg Neuts % (Manual) Lymphocytes % (Manual) Monocytes % (Manual) Eosinophils % (Manual) Basophils % (Manual) Seg Neutrophils # Sadi D-Dimer Sodium Chloride BUN Creatinine Glucose POC Glucose 181 H 242 H 287 H Hemoglobin A1c Calcium Phosphorus Iron Total Creatine Kinase CK-MB (CK-2) Albumin Ocbym-8-Astjwjyln PEP Interpretation HDL Cholesterol Urine Creatinine Urine Total Protein 09/06/18 04:15 WBC RBC Hgb Hct MCV MCH RDW Plt Count [place] % (Auto) Eos % (Auto) Seg Neuts % (Manual) Lymphocytes % (Manual) Monocytes % (Manual) Eosinophils % (Manual) Basophils % (Manual) Seg Neutrophils # Sadi D-Dimer Sodium 132 L Chloride 91.6 L BUN 37 H Creatinine 4.0 H Glucose 191 H POC Glucose Hemoglobin A1c Calcium Phosphorus Iron Total Creatine Kinase CK-MB (CK-2) Albumin Ntpgr-0-Lzfqwlphv PEP Interpretation HDL Cholesterol Urine Creatinine Urine Total Protein Allied health notes reviewed: nursing
[2018-09-06] MEDS: HumaLOG SUB-Q SCH ×4 (08:30→21:49)
[2018-09-06] MEDS: HumuLIN R SUB-Q SCH ×3 (09:00→18:48)
[2018-09-06] MEDS: VITAMIN D3 PO SCH (09:34)
[2018-09-06] MEDS: BABY ASPIRIN PO SCH (09:34)
[2018-09-06] MEDS: COLACE PO SCH ×2 (09:35→21:52)
[2018-09-06] MEDS: SODIUM CHLORIDE FLUSH SYRINGE 10 ML IV SCH ×2 (09:35→21:25)
[2018-09-06] MEDS: HEPARIN SUB-Q SCH ×2 (09:35→21:26)
[2018-09-06] MEDS: COREG PO SCH ×2 (09:41→23:28)
--- NOTE | 2018-09-06 10:13 | Progress Note ---
Assessment and Plan Assessment and plan: Acute heart failure with preserved EF. Continue present management. No ACEI or ARB due to advanced renal failure. Continue hemodialysis per nephrology. Acute on Chronic kidney disease, stage 3: Patient had Perm-catheter placed 08/22 and hemodialysis was initiated. Secondary GN workup was negative. Renal ultrasound on 08/16/18- Chronic medical renal disease. No Hydronephrosis. No ACEI or ARB due to advanced renal failure. Renally dose all medications. Avoid Nephrotoxic agents. Strict I/O's monitoring. Nephrology to determine long-term needs for hemodialysis. Nephrology states will need outpatient hemodialysis set-up [place]. Case man ager working on it. Still monitoring for Renal Recovery Anasarca and scrotal edema. Hyponatremia follow-up BMP. Elevated D-Dimer. VQ scan negative Hypotension. Hold hydralazine for now. DM type 2; ada and ssi HLD: treat with statins Malnutrition mild to moderate: counseling done, consulted Senior Loan Officer Right toe pressure ulcer, poa, at least stage 3, heel ulcers bilateral also: see admission photos, local wound care done, continue Wound care Morbid obese, bmi 51.3, 342 lbs: counseled on lifestyle modification and weight reduction - Patient Problems (1) Acute heart failure with preserved ejection fraction Current Visit: Yes Status: Acute (2) Acute kidney injury superimposed on CKD Current Visit: Yes Status: Acute (3) Acute on chronic renal failure Current Visit: Yes Status: Acute (4) Anasarca Current Visit: Yes Status: Acute (5) Anemia Current Visit: Yes Status: Acute Qualifiers: Anemia type: unspecified type Qualified Code(s): D64.9 - Anemia, unspecified (6) CKD (chronic kidney disease) Current Visit: Yes Status: Acute Qualifiers: Chronic kidney disease stage: stage 3 (moderate) Qualified Code(s): N18.3 - Chronic kidney disease, stage 3 (moderate) (7) Elevated d-dimer Current Visit: Yes Status: Acute (8) Essential hypertension Current Visit: Yes Status: Chronic (9) Hyperlipemia, mixed Current Visit: Yes Status: Chronic (10) Morbid obesity Current Visit: Yes Status: Chronic (11) MARBELLA (obstructive sleep apnea) Current Visit: Yes Status: Chronic History Interval history: Patient is a 58-year-old male with history of hypertension, diabetes, HLD, CKD stage III who presents to [facility] ED with c/o bilateral lower extremity swelling and shortness of breath. Pt scrotum is swollen obstructing view of his penis. Currently patient is on 2L supplemental O2 with saturation of 94%. D-dimer slightly elevated at 463.24. CK-MB elevated at 5.0; troponin negative. 2D ECHO conclusions Global LV systolic function is normal, estimated estimated EF is 55- 60%; abnormal LV diastolic dysfunction, mild to moderate concentric LV hypertrophy, trace mr, tr, RVSP calculated at 57 mmHg. He is idagnosed with acute on CKD, initiated on dialysis 08/22/18. Also acute diastolic CHF that has improved with dialysis. After several dialysis sessions, nephrology has determined he needs to be on assisted dialysis. He is medically stable, awaiting arrangement for dialysis. He was planning to move to [place] so case management looking for dialysis center in [place]. No new issues overnight. Hospitalist Physical - Constitutional Vitals: Temp Pulse Resp BP Pulse Ox 98.0 F 67 16 103/43 95 09/06/18 05:44 09/06/18 09:41 09/06/18 05:44 09/06/18 09:41 09/06/18 05:44 General appearance: Present: no acute distress, well-nourished - EENT Eyes: Present: PERRL, EOM intact ENT: hearing intact, clear oral mucosa, dentition normal - Neck Neck: Present: supple, normal ROM - Respiratory Respiratory effort: normal Respiratory: bilateral: CTA - Cardiovascular Rhythm: regular Heart Sounds: Present: S1 & S2. Absent: gallop, rub - Extremities Extremities: no ischemia, No edema, Full ROM - Abdominal General gastrointestinal: soft, non-tender, non-distended, normal bowel sounds - Integumentary Integumentary: Present: clear, warm, dry - Neurologic Neurologic: CNII-XII intact, moves all extremities Results - Labs CBC & Chem 7: 08/30/18 04:17 09/06/18 04:15 Labs: Laboratory Last Values WBC 6.8 K/mm3 (4.5-11.0) 08/30/18 04:17 RBC 3.64 M/mm3 (3.65-5.03) L 08/30/18 04:17 Hgb 9.8 gm/dl (11.8-15.2) L 08/30/18 04:17 Hct 29.6 % (35.5-45.6) L 08/30/18 04:17 MCV 81 fl (84-94) L 08/30/18 04:17 MCH 27 pg (28-32) L 08/30/18 04:17 MCHC 33 % (32-34) 08/30/18 04:17 RDW 16.8 % (13.2-15.2) H 08/30/18 04:17 Plt Count 158 K/mm3 (140-440) 08/30/18 04:17 Lymph % (Auto) 26.6 % (13.4-35.0) 08/17/18 07:30 Karnes % (Auto) Senior Sales Operations Manager 08/25/18 04:43 Eos % (Auto) 6.6 % (0.0-4.3) H 08/17/18 07:30 Baso % (Auto) 1.1 % (0.0-1.8) 08/17/18 07:30 Lymph # 1.3 K/mm3 (1.2-5.4) 08/17/18 07:30 Karnes # 0.7 K/mm3 (0.0-0.8) 08/17/18 07:30 Eos # 0.3 K/mm3 (0.0-0.4) 08/17/18 07:30 Baso # 0.1 K/mm3 (0.0-0.1) 08/17/18 07:30 Add Manual Diff Complete 08/25/18 04:43 Total Counted 100 08/25/18 04:43 Seg Neutrophils % 51.7 % (40.0-70.0) 08/17/18 07:30 Seg Neuts % (Manual) 62.0 % (40.0-70.0) 08/25/18 04:43 0 % 08/25/18 04:43 23.0 % (13.4-35.0) 08/25/18 04:43 Reactive Lymphs % (Man) 0 % 08/25/18 04:43 10.0 % (0.0-7.3) H 08/25/18 04:43 4.0 % (0.0-4.3) 08/25/18 04:43 1.0 % (0.0-1.8) 08/25/18 04:43 0 % 08/25/18 04:43 0 % 08/25/18 04:43 0 % 08/25/18 04:43 0 % 08/25/18 04:43 Nucleated RBC % Not Reportable 08/25/18 04:43 Seg Neutrophils # 2.6 K/mm3 (1.8-7.7) 08/17/18 07:30 Seg Neutrophils # Man 3.3 K/mm3 (1.8-7.7) 08/25/18 04:43 Band Neutrophils # 0.0 K/mm3 08/25/18 04:43 1.2 K/mm3 (1.2-5.4) 08/25/18 04:43 Abs React Lymphs (Man) 0.0 K/mm3 08/25/18 04:43 0.5 K/mm3 (0.0-0.8) 08/25/18 04:43 0.2 K/mm3 (0.0-0.4) 08/25/18 04:43 0.1 K/mm3 (0.0-0.1) 08/25/18 04:43 0.0 K/mm3 08/25/18 04:43 0.0 K/mm3 08/25/18 04:43 0.0 K/mm3 08/25/18 04:43 Blast Cells # 0.0 K/mm3 08/25/18 04:43 WBC Morphology Not Reportable 08/25/18 04:43 Hypersegmented Neuts Not Reportable 08/25/18 04:43 Hyposegmented Neuts Not Reportable 08/25/18 04:43 Hypogranular Neuts Not Reportable 08/25/18 04:43 Not Reportable 08/25/18 04:43 Not Reportable 08/25/18 04:43 Not Reportable 08/25/18 04:43 Not Reportable 08/25/18 04:43 Not Reportable 08/25/18 04:43 Not Reportable 08/25/18 04:43 Consistent w auto 08/25/18 04:43 Not Reportable 08/25/18 04:43 Plt Clumps, EDTA Not Reportable 08/25/18 04:43 Rare 08/25/18 04:43 Not Reportable 08/25/18 04:43 Not Reportable 08/25/18 04:43 Plt Morphology Comment Not Reportable 08/25/18 04:43 RBC Morphology Not Reportable 08/25/18 04:43 Dimorphic RBCs Not Reportable 08/25/18 04:43 Not Reportable 08/25/18 04:43 Not Reportable 08/25/18 04:43 1+ 08/25/18 04:43 1+ 08/25/18 04:43 Not Reportable 08/25/18 04:43 Not Reportable 08/25/18 04:43 Not Reportable 08/25/18 04:43 Not Reportable 08/25/18 04:43 Not Reportable 08/25/18 04:43 Not Reportable 08/25/18 04:43 Not Reportable 08/25/18 04:43 Not Reportable 08/25/18 04:43 Not Reportable 08/25/18 04:43 Not Reportable 08/25/18 04:43 Not Reportable 08/25/18 04:43 Not Reportable 08/25/18 04:43 Not Reportable 08/25/18 04:43 Not Reportable 08/25/18 04:43 1+ 08/25/18 04:43 Acanthocytes (Spur) Not Reportable 08/25/18 04:43 Rouleaux Not Reportable 08/25/18 04:43 Not Reportable 08/25/18 04:43 Not Reportable 08/25/18 04:43 Not Reportable 08/25/18 04:43 Not Reportable 08/25/18 04:43 Hem Pathologist Commnt No 08/25/18 04:43 463.24 ng/mlDDU (0-234) H 08/15/18 21:24 Sodium 132 mmol/L (137-145) L 09/06/18 04:15 Potassium 4.2 mmol/L (3.6-5.0) 09/06/18 04:15 Chloride 91.6 mmol/L (98-107) L 09/06/18 04:15 Carbon Dioxide 27 mmol/L (22-30) 09/06/18 04:15 18 mmol/L 09/06/18 04:15 BUN 37 mg/dL (9-20) H 09/06/18 04:15 4.0 mg/dL (0.8-1.5) H 09/06/18 04:15 Estimated GFR 16 ml/min 09/06/18 04:15 9 % 09/06/18 04:15 Glucose 191 mg/dL (75-100) H 09/06/18 04:15 POC Glucose 146 (70-105) H 09/06/18 08:46 7.4 % (4-6) H 08/16/18 03:37 Lactic Acid 0.70 mmol/L (0.7-2.0) 08/20/18 04:53 Calcium 9.0 mg/dL (8.4-10.2) 09/06/18 04:15 Phosphorus 3.90 mg/dL (2.5-4.5) 08/25/18 04:43 Iron 30 ug/dL (49-181) L 08/16/18 13:52 TIBC 352 mcg/dL (250-450) 08/16/18 13:52 78.2 ng/mL (13.0-400.0) 08/18/18 08:34 0.40 mg/dL (0.1-1.2) 08/15/18 18:54 AST 25 units/L (5-40) 08/15/18 18:54 ALT 15 units/L (7-56) 08/15/18 18:54 74 units/L (35-129) 08/15/18 18:54 340 units/L (55-170) H 08/15/18 21:24 CK-MB (CK-2) 5.0 ng/mL (0.0-4.0) H 08/15/18 21:24 CK-MB (CK-2) Rel Index 1.4 (0-4) 08/15/18 21:24 0.026 ng/mL (0.00-0.029) 08/15/18 21:24 NT-Pro-B Natriuret Pep 877.6 pg/mL (0-900) 08/17/18 11:13 6.1 g/dL (6.1-8.1) 08/17/18 11:13 6.7 g/dL (6.3-8.2) 08/15/18 18:54 2.9 g/dL (3.8-4.8) L 08/17/18 11:13 0.9 % 08/15/18 18:54 0.4 g/dL (0.2-0.3) H 08/17/18 11:13 0.7 g/dL (0.5-0.9) 08/17/18 11:13 0.5 g/dL (0.2-0.5) 08/17/18 11:13 1.1 g/dL (0.8-1.7) 08/17/18 11:13 Abnorm Protein Band 1 see below 08/17/18 11:13 PEP Interpretation see below H 08/17/18 11:13 Triglycerides 140 mg/dL (2-149) 08/16/18 03:37 Cholesterol 147 mg/dL (50-199) 08/16/18 03:37 88 mg/dL (50-130) 08/16/18 03:37 37 mg/dL (40-59) L 08/16/18 03:37 3.97 % 08/16/18 03:37 Straw (Yellow) 08/17/18 04:00 Clear (Clear) 08/17/18 04:00 7.0 (5.0-7.0) 08/17/18 04:00 Ur Specific [place] 1.006 (1.003-1.030) 08/17/18 04:00 100 mg/dl mg/dL (Negative) 08/17/18 04:00 Neg mg/dL (Negative) 08/17/18 04:00 Neg mg/dL (Negative) 08/17/18 04:00 Neg (Negative) 08/17/18 04:00 Neg (Negative) 08/17/18 04:00 Neg (Negative) 08/17/18 04:00 < 2.0 mg/dL (<2.0) 08/17/18 04:00 Ur Leukocyte Esterase Neg (Negative) 08/17/18 04:00 < 1.0 /HPF (0.0-6.0) 08/17/18 04:00 2.0 /HPF (0.0-6.0) 08/17/18 04:00 U Epithel Cells (Auto) 1.0 /HPF (0-13.0) 08/15/18 18:47 1+ /HPF (Negative) 08/17/18 04:00 Few /HPF 08/15/18 18:47 None seen (None Seen) 08/17/18 04:00 Ur Random Creatinine See scanned report 08/17/18 10:40 U Random Total Protein See scanned report 08/17/18 10:40 800 ml 08/20/18 12:09 56.1 mg/dL (0.1-20.0) H 08/20/18 12:09 Height (in) 68.0 inches 08/20/18 12:09 Weight (lb) 348.8 lbs 08/20/18 12:09 6 08/20/18 12:09 Protein/Creatinin Ratio See scanned report 08/17/18 10:40 132 mmol/L 08/17/18 04:00 106 08/17/18 04:00 79 mg/dL (5-11.8) H 08/17/18 04:00 U Abnormal Prot Band 1 See scanned report 08/17/18 10:40 U Abnormal Prot Band 2 See scanned report 08/17/18 10:40 U Abnormal Prot Band 3 See scanned report 08/17/18 10:40 Immunofix Electrophor see below 08/17/18 11:13 JELANI Screen Negative (Negative) 08/17/18 11:13 Double Strand DNA Ab <1 IU/mL (<=4) 08/17/18 11:13 144 mg/dL (82-185) 08/17/18 11:13 23 mg/dL (15-53) 08/17/18 11:13 RPR Nonreactive (Nonreactive) 08/17/18 11:13 Hepatitis A IgM Ab Non-reactive (NonReactive) 08/17/18 11:13 Hep Bs Antigen Non-reactive (Negative) 08/17/18 11:13 Hep B Core IgM Ab Non-reactive (NonReactive) 08/17/18 11:13 Non-reactive (NonReactive) 08/17/18 11:13 HIV 1&2 Antibody Rapid Non react (Non React) 08/17/18 11:13 Non react (Non React) 08/17/18 11:13 Active Medications - Current Medications Current Medications: Generic Name Dose Route Start Last Admin Trade Name Freq PRN Reason Stop Dose Admin Acetaminophen 650 mg 08/16/18 03:07 09/03/18 16:00 Tylenol PO 650 mg Q4H PRN Administration Pain MILD(1-3)/Fever >100.5/FRAIRE Albuterol 2.5 mg 08/16/18 03:07 Proventil IH Q4HRT PRN Shortness Of Breath Aspirin 81 mg 08/16/18 10:00 09/06/18 09:34 Baby Aspirin PO 81 mg QDAY [facility] Administration Atorvastatin Calcium 40 mg 08/16/18 22:00 09/05/18 22:36 Lipitor PO 40 mg QHS [facility] Administration Carvedilol 6.25 mg 08/17/18 12:00 09/06/18 09:41 Coreg PO 6.25 mg BID [facility] Administration Cholecalciferol 5,000 unit 08/16/18 10:00 09/06/18 09:34 Vitamin D3 PO 5,000 unit DAILY [facility] Administration Dextrose 50 ml 08/16/18 03:13 D50w (25gm) Syringe IV PRN PRN Hypoglycemia Docusate Sodium 100 mg 08/16/18 10:00 09/06/18 09:35 Colace PO 100 mg BID [facility] Administration Epoetin Keon 10,000 unit 08/18/18 13:00 09/05/18 12:40 Procrit SUB-Q 10,000 unit MOWEFR [facility] Administration Gabapentin 300 mg 08/16/18 22:00 09/05/18 22:36 Neurontin PO 300 mg QHS [facility] Administration Heparin Sodium (Porcine) 5,000 unit 08/16/18 10:00 09/06/18 09:35 Heparin SUB-Q 5,000 unit Q12HR ARLENE Administration Hydralazine HCl 50 mg 08/16/18 14:00 09/06/18 06:25 Apresoline PO Not Given Q8HR [facility] Sodium Chloride 100 mls @ 999 mls/hr 09/02/18 09:49 Nacl 0.9% IV JANE PRN Hypotension Insulin Human Lispro 0 unit 08/16/18 07:30 09/06/18 08:30 Humalog SUB-Q Not Given ACHS [facility] Protocol Insulin Human Regular 5 units 08/16/18 07:30 09/06/18 09:00 Humulin R SUB-Q 5 units AC [facility] Administration Nitroglycerin 0.4 mg 08/16/18 03:07 Nitrostat SL .Q5MIN PRN Chest Pain Ondansetron HCl 4 mg 08/16/18 03:07 08/16/18 16:39 Zofran IV 4 mg Q8H PRN Administration Nausea And Vomiting Oxycodone/Acetaminophen 1 tab 08/16/18 03:07 06/01/19 22:06 Percocet 5/325 PO 1 tab Q6H PRN Administration Pain, Moderate (4-6) Sodium Chloride 10 ml 08/16/18 10:00 09/06/18 09:35 Sodium Chloride Flush Syringe 10 Ml IV 10 ml BID ARLENE Administration Sodium Chloride 10 ml 08/16/18 03:07 08/16/18 06:17 Sodium Chloride Flush Syringe 10 Ml IV 10 ml PRN PRN Administration LINE FLUSH Nutrition/Malnutrition Assess - Dietary Evaluation Nutrition/Malnutrition Findings: Nutrition Notes Start: 08/16/18 09:25 Freq: Status: Active Protocol: Document 08/19/18 14:48 GHASSAN (Rec: 08/19/18 14:54 GHASSAN [email or web address]) Nutrition Notes Initial or Follow up Brief Note Current Diagnosis CKD(stage I-IV),Diabetes Other Pertinent Diagnosis Fluid retention in scrotum and BLE edema, wounds on toe, heel and leg Current Diet Cardiac/consistent CHO Labs/Tests Na 134 BUN 55 Cr 4.4 Pertinent Medications Reviewed [facility] Body Weight (kg) 0 Subjective/Other Information Pt reports good appetite; has been consuming 75-100% of meals. Nutrition Intervention Revisit per MD consult or patient Sign Off request:
--- NOTE | 2018-09-06 13:36 | Progress Note ---
Assessment and Plan Assessment: ESRD on HD -S/p HD yesterday for clearance and volume removal, UF removed 4 liters -No acute indication for HD today -Assess need for HD on daily basis -Secondary GN workup was negative -Renal ultrasound on 08/16/18- Chronic medical renal disease. No Hydronephrosis. -Renally dose all medications -Avoid Nephrotoxic agents -Strict I/O's -Mckeon Catheter: None -Patient awaiting placement to [facility] -Renal plan d/w Dr Gordillo Acute Diastolic Congestive heart failure -Echo- LVEF is 55-60% -S/p IV Lasix -UF with HD -Cardiology on board Anemia of chronic disease due to CKD: -On Epogen for anemia management -Monitor H/H Essential Hypertension: - Continue on current regimen - Adjust medications as needed Diabetes Mellitus type 2 on insulin: -On insulin as per primary team Subjective Date of service: 09/06/18 Principal diagnosis: CHF; CKD; HANSEN; Elevated d-dimer; Essential HTN; Morbid obesity; MARBELLA Interval history: Pt seen in bed, states still has scrotal swelling, but feels like his BLE s welling has improved, denies shortness of breath. No family at bedside Objective - Vital Signs Vital signs: Vital Signs - 12hr 09/06/18 09/06/18 09/06/18 05:44 06:25 09:41 Temperature 98.0 F Pulse Rate 82 82 67 Respiratory 16 Rate Blood Pressure 95/45 95/45 103/43 O2 Sat by Pulse 95 Oximetry - General Appearance General appearance: well-developed EENT: ATNC Neck: no JVD Respiratory: Present: Decreased Breath Sounds Cardiology: regular, S1S2, other (ACCESS: Right IJ Perm Catheter intact) Gastrointestinal: normoactive bowel sounds, no tenderness Integumentary: chronic venous stasis Neurologic: alert and oriented x3 Musculoskeletal: other (2+ edema to BLE) Psychiatric: cooperative - Lab 08/30/18 04:17 09/06/18 04:15 Most recent lab results Calcium 9.0 mg/dL (8.4-10.2) 09/06/18 04:15 Phosphorus 3.90 mg/dL (2.5-4.5) 08/25/18 04:43 56.1 mg/dL (0.1-20.0) H 08/20/18 12:09 132 mmol/L 08/17/18 04:00 79 mg/dL (5-11.8) H 08/17/18 04:00 Medications & Allergies - Medications Allergies/Adverse Reactions: Allergies canagliflozin [From Invokana] Allergy (Verified 08/15/18 17:49) Unknown IV CONTRAST DYE Allergy (Uncoded 08/15/18 17:49) Unknown Home Medications: Home Medications Medication Instructions Recorded Confirmed Last Taken Type Doxylamine Succinate [Unisom] 25 mg PO QHS 08/16/18 08/16/18 Unknown History Niacin [Niacor] 500 mg PO DAILY 08/16/18 08/16/18 Unknown History Triamcinolone Acetonide [Nasacort 10.8 ml NS DAILY 08/16/18 08/16/18 Unknown History SPRAY] Aspirin [Aspirin BABY CHEW TAB] 81 mg PO QDAY tab.chew 09/03/18 Unknown Rx AtorvaSTATin [Lipitor] 40 mg PO QHS #40 tablet 09/03/18 Unknown Rx Carvedilol [Coreg] 6.25 mg PO BID #60 tablet 09/03/18 Unknown Rx Cholecalciferol (Vitamin D3) 5,000 unit PO DAILY #30 capsule 09/03/18 Unknown Rx [Vitamin D3 5,000 UNIT] Epoetin Keon 10,000 Unit [Procrit] 10,000 unit SUB-Q MOWEFR 30 Days 09/03/18 Unknown Rx vial Gabapentin [Neurontin] 300 mg PO QHS #30 capsule 09/03/18 Unknown Rx Insulin Regular, Human [HumuLIN R] 5 units SUB-Q AC 30 Days units 09/03/18 Unknown Rx Lispro Insulin [HumaLOG] 0 unit SUB-Q ACHS units 09/03/18 Unknown Rx Loratadine [Claritin] 10 mg PO DAILY PRN #30 tablet 09/03/18 Unknown Rx Melatonin [Melatonin 3MG TAB] 3 mg PO QHS #30 tablet 09/03/18 Unknown Rx Nitroglycerin [Nitrostat] 0.4 mg SL .Q5MIN PRN tablet 09/03/18 Unknown Rx Omeprazole 20 mg PO DAILY PRN #30 capsule. 09/03/18 Unknown Rx hydrALAZINE [Apresoline TAB] 50 mg PO Q8HR #90 tablet 09/03/18 Unknown Rx oxyCODONE /ACETAMINOPHEN [Percocet 1 tab PO Q6H PRN #8 tablet 09/03/18 Unknown Rx 5/325 mg] Active Medications: Generic Name Dose Route Start Last Admin Trade Name Freq PRN Reason Stop Dose Admin Acetaminophen 650 mg 08/16/18 03:07 09/03/18 16:00 Tylenol PO 650 mg Q4H PRN Administration Pain MILD(1-3)/Fever >100.5/FRAIRE Albuterol 2.5 mg 08/16/18 03:07 Proventil IH Q4HRT PRN Shortness Of Breath Aspirin 81 mg 08/16/18 10:00 09/06/18 09:34 Baby Aspirin PO 81 mg QDAY ARLENE Administration Atorvastatin Calcium 40 mg 08/16/18 22:00 09/05/18 22:36 Lipitor PO 40 mg QHS ARLENE Administration Carvedilol 6.25 mg 08/17/18 12:00 09/06/18 09:41 Coreg PO 6.25 mg BID ARLENE Administration Cholecalciferol 5,000 unit 08/16/18 10:00 09/06/18 09:34 Vitamin D3 PO 5,000 unit DAILY ARLENE Administration Dextrose 50 ml 08/16/18 03:13 D50w (25gm) Syringe IV PRN PRN Hypoglycemia Docusate Sodium 100 mg 08/16/18 10:00 09/06/18 09:35 Colace PO 100 mg BID ARLENE Administration Epoetin Keon 10,000 unit 08/18/18 13:00 09/05/18 12:40 Procrit SUB-Q 10,000 unit MOWEFR ARLENE Administration Gabapentin 300 mg 08/16/18 22:00 09/05/18 22:36 Neurontin PO 300 mg QHS [facility] Administration Heparin Sodium (Porcine) 5,000 unit 08/16/18 10:00 09/06/18 09:35 Heparin SUB-Q 5,000 unit Q12HR ARLENE Administration Hydralazine HCl 50 mg 08/16/18 14:00 09/06/18 06:25 Apresoline PO Not Given Q8HR [facility] Sodium Chloride 100 mls @ 999 mls/hr 09/02/18 09:49 Nacl 0.9% IV JANE PRN Hypotension Insulin Human Lispro 0 unit 08/16/18 07:30 09/06/18 13:05 Humalog SUB-Q 2 unit ACHS ARLENE Administration Protocol Insulin Human Regular 5 units 08/16/18 07:30 09/06/18 13:05 Humulin R SUB-Q 5 units AC ARLENE Administration Nitroglycerin 0.4 mg 08/16/18 03:07 Nitrostat SL .Q5MIN PRN Chest Pain Ondansetron HCl 4 mg 08/16/18 03:07 08/16/18 16:39 Zofran IV 4 mg Q8H PRN Administration Nausea And Vomiting Oxycodone/Acetaminophen 1 tab 08/16/18 03:07 08/23/18 22:06 Percocet 5/325 PO 1 tab Q6H PRN Administration Pain, Moderate (4-6) Sodium Chloride 10 ml 08/16/18 10:00 09/06/18 09:35 Sodium Chloride Flush Syringe 10 Ml IV 10 ml BID ARLENE Administration Sodium Chloride 10 ml 08/16/18 03:07 08/16/18 06:17 Sodium Chloride Flush Syringe 10 Ml IV 10 ml PRN PRN Administration LINE FLUSH Tuberculin PPD 5 unit 09/06/18 14:00 Aplisol ID 09/06/18 14:01 ONCE ONE
[2018-09-06] MEDS ORDERED: APLISOL ID ONE (14:00)
[2018-09-06] MEDS: NEURONTIN PO SCH (21:25)
[2018-09-07] MEDS: APRESOLINE PO SCH ×3 (06:09→23:12)
[2018-09-07 06:18] LABS: Calcium 8.9 mg/dL (8.4-10.2)
[2018-09-07] MEDS: VITAMIN D3 PO SCH (09:01)
[2018-09-07] MEDS: COLACE PO SCH ×2 (09:01→22:25)
[2018-09-07] MEDS: HumaLOG SUB-Q SCH ×4 (09:02→22:21)
[2018-09-07] MEDS: HumuLIN R SUB-Q SCH ×3 (09:02→17:37)
[2018-09-07] MEDS: HEPARIN SUB-Q SCH ×2 (09:03→22:26)
[2018-09-07] MEDS: SODIUM CHLORIDE FLUSH SYRINGE 10 ML IV SCH ×2 (09:03→22:24)
[2018-09-07] MEDS: TYLENOL PO PRN ×2 (10:07→14:29)
[2018-09-07] MEDS: COREG PO SCH ×2 (10:07→23:13)
[2018-09-07] MEDS: BABY ASPIRIN PO SCH (10:46)
--- NOTE | 2018-09-07 11:58 | Progress Note ---
Assessment and Plan Assessment and plan: Acute heart failure with preserved EF. Continue present management. No ACEI or ARB due to advanced renal failure. Continue hemodialysis per nephrology. Acute on Chronic kidney disease, stage 3: Patient had Perm-catheter placed 08/22 and hemodialysis was initiated. Secondary GN workup was negative. Renal ultrasound on 08/16/18- Chronic medical renal disease. No Hydronephrosis. No ACEI or ARB due to advanced renal failure. Renally dose all medications. Avoid Nephrotoxic agents. Strict I/O's monitoring. Nephrology to determine long-term needs for hemodialysis. Nephrology states will need outpatient hemodialysis set-up [place]. Case man ager working on it. Still monitoring for Renal Recovery Anasarca and scrotal edema. Hyponatremia follow-up BMP. Elevated D-Dimer. VQ scan negative Hypotension. Hold hydralazine for now. DM type 2; ada and ssi HLD: treat with statins Malnutrition mild to moderate: counseling done, consulted [employer] Right toe pressure ulcer, poa, at least stage 3, heel ulcers bilateral also: see admission photos, local wound care done, continue Wound care Morbid obese, bmi 51.3, 342 lbs: counseled on lifestyle modification and weight reduction - Patient Problems (1) Acute heart failure with preserved ejection fraction Current Visit: Yes Status: Acute (2) Acute kidney injury superimposed on CKD Current Visit: Yes Status: Acute (3) Acute on chronic renal failure Current Visit: Yes Status: Acute (4) Anasarca Current Visit: Yes Status: Acute (5) Anemia Current Visit: Yes Status: Acute Qualifiers: Anemia type: unspecified type Qualified Code(s): D64.9 - Anemia, unspecified (6) CKD (chronic kidney disease) Current Visit: Yes Status: Acute Qualifiers: Chronic kidney disease stage: stage 3 (moderate) Qualified Code(s): N18.3 - Chronic kidney disease, stage 3 (moderate) (7) Elevated d-dimer Current Visit: Yes Status: Acute (8) Essential hypertension Current Visit: Yes Status: Chronic (9) Hyperlipemia, mixed Current Visit: Yes Status: Chronic (10) Morbid obesity Current Visit: Yes Status: Chronic (11) MARBELLA (obstructive sleep apnea) Current Visit: Yes Status: Chronic History Interval history: Patient is a 58-year-old male with history of hypertension, diabetes, HLD, CKD stage III who presents to [facility] ED with c/o bilateral lower extremity swelling and shortness of breath. Pt scrotum is swollen obstructing view of his penis. Currently patient is on 2L supplemental O2 with saturation of 94%. D-dimer slightly elevated at 463.24. CK-MB elevated at 5.0; troponin negative. 2D ECHO conclusions Global LV systolic function is normal, estimated estimated EF is 55- 60%; abnormal LV diastolic dysfunction, mild to moderate concentric LV hypertrophy, trace mr, tr, RVSP calculated at 57 mmHg. He is idagnosed with acute on CKD, initiated on dialysis 08/22/18. Also acute diastolic CHF that has improved with dialysis. After several dialysis sessions, nephrology has determined he needs to be on intermediate dialysis. He is medically stable, awaiting arrangement for dialysis. He was planning to move to [place] so case management looking for dialysis center in [place]. No new issues overnight. Hospitalist Physical - Constitutional Vitals: Temp Pulse Resp BP Pulse Ox 98.0 F 64 17 110/44 96 09/07/18 05:15 09/07/18 10:07 09/07/18 07:33 09/07/18 10:07 09/07/18 07:33 General appearance: Present: no acute distress, well-nourished - EENT Eyes: Present: PERRL, EOM intact ENT: hearing intact, clear oral mucosa, dentition normal - Neck Neck: Present: supple, normal ROM - Respiratory Respiratory effort: normal Respiratory: bilateral: CTA - Cardiovascular Rhythm: regular Heart Sounds: Present: S1 & S2. Absent: gallop, rub - Extremities Extremities: no ischemia, No edema, Full ROM - Abdominal General gastrointestinal: soft, non-tender, non-distended, normal bowel sounds - Integumentary Integumentary: Present: clear, warm, dry - Neurologic Neurologic: CNII-XII intact, moves all extremities Results - Labs CBC & Chem 7: 08/30/18 04:17 09/07/18 04:58 Labs: Laboratory Last Values WBC 6.8 K/mm3 (4.5-11.0) 08/30/18 04:17 RBC 3.64 M/mm3 (3.65-5.03) L 08/30/18 04:17 Hgb 9.8 gm/dl (11.8-15.2) L 08/30/18 04:17 Hct 29.6 % (35.5-45.6) L 08/30/18 04:17 MCV 81 fl (84-94) L 08/30/18 04:17 MCH 27 pg (28-32) L 08/30/18 04:17 MCHC 33 % (32-34) 08/30/18 04:17 RDW 16.8 % (13.2-15.2) H 08/30/18 04:17 Plt Count 158 K/mm3 (140-440) 08/30/18 04:17 Lymph % (Auto) 26.6 % (13.4-35.0) 08/17/18 07:30 [place] % (Auto) Licensing Officer 08/25/18 04:43 Eos % (Auto) 6.6 % (0.0-4.3) H 08/17/18 07:30 Baso % (Auto) 1.1 % (0.0-1.8) 08/17/18 07:30 Lymph # 1.3 K/mm3 (1.2-5.4) 08/17/18 07:30 [place] # 0.7 K/mm3 (0.0-0.8) 08/17/18 07:30 Eos # 0.3 K/mm3 (0.0-0.4) 08/17/18 07:30 Baso # 0.1 K/mm3 (0.0-0.1) 08/17/18 07:30 Add Manual Diff Complete 08/25/18 04:43 Total Counted 100 08/25/18 04:43 Seg Neutrophils % 51.7 % (40.0-70.0) 08/17/18 07:30 Seg Neuts % (Manual) 62.0 % (40.0-70.0) 08/25/18 04:43 0 % 08/25/18 04:43 23.0 % (13.4-35.0) 08/25/18 04:43 Reactive Lymphs % (Man) 0 % 08/25/18 04:43 10.0 % (0.0-7.3) H 08/25/18 04:43 4.0 % (0.0-4.3) 08/25/18 04:43 1.0 % (0.0-1.8) 08/25/18 04:43 0 % 08/25/18 04:43 0 % 08/25/18 04:43 0 % 08/25/18 04:43 0 % 08/25/18 04:43 Nucleated RBC % Not Reportable 08/25/18 04:43 Seg Neutrophils # 2.6 K/mm3 (1.8-7.7) 08/17/18 07:30 Seg Neutrophils # Man 3.3 K/mm3 (1.8-7.7) 08/25/18 04:43 Band Neutrophils # 0.0 K/mm3 08/25/18 04:43 1.2 K/mm3 (1.2-5.4) 08/25/18 04:43 Abs React Lymphs (Man) 0.0 K/mm3 08/25/18 04:43 0.5 K/mm3 (0.0-0.8) 08/25/18 04:43 0.2 K/mm3 (0.0-0.4) 08/25/18 04:43 0.1 K/mm3 (0.0-0.1) 08/25/18 04:43 0.0 K/mm3 08/25/18 04:43 0.0 K/mm3 08/25/18 04:43 0.0 K/mm3 08/25/18 04:43 Blast Cells # 0.0 K/mm3 08/25/18 04:43 WBC Morphology Not Reportable 08/25/18 04:43 Hypersegmented Neuts Not Reportable 08/25/18 04:43 Hyposegmented Neuts Not Reportable 08/25/18 04:43 Hypogranular Neuts Not Reportable 08/25/18 04:43 Not Reportable 08/25/18 04:43 Not Reportable 08/25/18 04:43 Not Reportable 08/25/18 04:43 Not Reportable 08/25/18 04:43 Not Reportable 08/25/18 04:43 Not Reportable 08/25/18 04:43 Consistent w auto 08/25/18 04:43 Not Reportable 08/25/18 04:43 Plt Clumps, EDTA Not Reportable 08/25/18 04:43 Rare 08/25/18 04:43 Not Reportable 08/25/18 04:43 Not Reportable 08/25/18 04:43 Plt Morphology Comment Not Reportable 08/25/18 04:43 RBC Morphology Not Reportable 08/25/18 04:43 Dimorphic RBCs Not Reportable 08/25/18 04:43 Not Reportable 08/25/18 04:43 Not Reportable 08/25/18 04:43 1+ 08/25/18 04:43 1+ 08/25/18 04:43 Not Reportable 08/25/18 04:43 Not Reportable 08/25/18 04:43 Not Reportable 08/25/18 04:43 Not Reportable 08/25/18 04:43 Not Reportable 08/25/18 04:43 Not Reportable 08/25/18 04:43 Not Reportable 08/25/18 04:43 Not Reportable 08/25/18 04:43 Not Reportable 08/25/18 04:43 Not Reportable 08/25/18 04:43 Not Reportable 08/25/18 04:43 Not Reportable 08/25/18 04:43 Not Reportable 08/25/18 04:43 Not Reportable 08/25/18 04:43 1+ 08/25/18 04:43 Acanthocytes (Spur) Not Reportable 08/25/18 04:43 Rouleaux Not Reportable 08/25/18 04:43 Not Reportable 08/25/18 04:43 Not Reportable 08/25/18 04:43 Not Reportable 08/25/18 04:43 Not Reportable 08/25/18 04:43 Hem Pathologist Commnt No 08/25/18 04:43 463.24 ng/mlDDU (0-234) H 08/15/18 21:24 Sodium 127 mmol/L (137-145) L 09/07/18 04:58 Potassium 4.2 mmol/L (3.6-5.0) 09/07/18 04:58 Chloride 89.2 mmol/L (98-107) L 09/07/18 04:58 Carbon Dioxide 26 mmol/L (22-30) 09/07/18 04:58 16 mmol/L 09/07/18 04:58 BUN 50 mg/dL (9-20) H 09/07/18 04:58 4.5 mg/dL (0.8-1.5) H 09/07/18 04:58 Estimated GFR 14 ml/min 09/07/18 04:58 11 % 09/07/18 04:58 Glucose 197 mg/dL (75-100) H 09/07/18 04:58 POC Glucose 239 (70-105) H 09/07/18 11:24 7.4 % (4-6) H 08/16/18 03:37 Lactic Acid 0.70 mmol/L (0.7-2.0) 08/20/18 04:53 Calcium 8.9 mg/dL (8.4-10.2) 09/07/18 04:58 Phosphorus 3.90 mg/dL (2.5-4.5) 08/25/18 04:43 Iron 30 ug/dL (49-181) L 08/16/18 13:52 TIBC 352 mcg/dL (250-450) 08/16/18 13:52 78.2 ng/mL (13.0-400.0) 08/18/18 08:34 0.40 mg/dL (0.1-1.2) 08/15/18 18:54 AST 25 units/L (5-40) 08/15/18 18:54 ALT 15 units/L (7-56) 08/15/18 18:54 74 units/L (35-129) 08/15/18 18:54 340 units/L (55-170) H 08/15/18 21:24 CK-MB (CK-2) 5.0 ng/mL (0.0-4.0) H 08/15/18 21:24 CK-MB (CK-2) Rel Index 1.4 (0-4) 08/15/18 21:24 0.026 ng/mL (0.00-0.029) 08/15/18 21:24 NT-Pro-B Natriuret Pep 877.6 pg/mL (0-900) 08/17/18 11:13 6.1 g/dL (6.1-8.1) 08/17/18 11:13 6.7 g/dL (6.3-8.2) 08/15/18 18:54 2.9 g/dL (3.8-4.8) L 08/17/18 11:13 0.9 % 08/15/18 18:54 0.4 g/dL (0.2-0.3) H 08/17/18 11:13 0.7 g/dL (0.5-0.9) 08/17/18 11:13 0.5 g/dL (0.2-0.5) 08/17/18 11:13 1.1 g/dL (0.8-1.7) 08/17/18 11:13 Abnorm Protein Band 1 see below 08/17/18 11:13 PEP Interpretation see below H 08/17/18 11:13 Triglycerides 140 mg/dL (2-149) 08/16/18 03:37 Cholesterol 147 mg/dL (50-199) 08/16/18 03:37 88 mg/dL (50-130) 08/16/18 03:37 37 mg/dL (40-59) L 08/16/18 03:37 3.97 % 08/16/18 03:37 Straw (Yellow) 08/17/18 04:00 Clear (Clear) 08/17/18 04:00 7.0 (5.0-7.0) 08/17/18 04:00 Ur Specific [place] 1.006 (1.003-1.030) 08/17/18 04:00 100 mg/dl mg/dL (Negative) 08/17/18 04:00 Neg mg/dL (Negative) 08/17/18 04:00 Neg mg/dL (Negative) 08/17/18 04:00 Neg (Negative) 08/17/18 04:00 Neg (Negative) 08/17/18 04:00 Neg (Negative) 08/17/18 04:00 < 2.0 mg/dL (<2.0) 08/17/18 04:00 Ur Leukocyte Esterase Neg (Negative) 08/17/18 04:00 < 1.0 /HPF (0.0-6.0) 08/17/18 04:00 2.0 /HPF (0.0-6.0) 08/17/18 04:00 U Epithel Cells (Auto) 1.0 /HPF (0-13.0) 08/15/18 18:47 1+ /HPF (Negative) 08/17/18 04:00 Few /HPF 08/15/18 18:47 None seen (None Seen) 08/17/18 04:00 Ur Random Creatinine See scanned report 08/17/18 10:40 U Random Total Protein See scanned report 08/17/18 10:40 800 ml 08/20/18 12:09 56.1 mg/dL (0.1-20.0) H 08/20/18 12:09 Height (in) 68.0 inches 08/20/18 12:09 Weight (lb) 348.8 lbs 08/20/18 12:09 6 08/20/18 12:09 Protein/Creatinin Ratio See scanned report 08/17/18 10:40 132 mmol/L 08/17/18 04:00 106 08/17/18 04:00 79 mg/dL (5-11.8) H 08/17/18 04:00 U Abnormal Prot Band 1 See scanned report 08/17/18 10:40 U Abnormal Prot Band 2 See scanned report 08/17/18 10:40 U Abnormal Prot Band 3 See scanned report 08/17/18 10:40 Immunofix Electrophor see below 08/17/18 11:13 JELANI Screen Negative (Negative) 08/17/18 11:13 Double Strand DNA Ab <1 IU/mL (<=4) 08/17/18 11:13 144 mg/dL (82-185) 08/17/18 11:13 23 mg/dL (15-53) 08/17/18 11:13 RPR Nonreactive (Nonreactive) 08/17/18 11:13 Hepatitis A IgM Ab Non-reactive (NonReactive) 08/17/18 11:13 Hep Bs Antigen Non-reactive (Negative) 08/17/18 11:13 Hep B Core IgM Ab Non-reactive (NonReactive) 08/17/18 11:13 Non-reactive (NonReactive) 08/17/18 11:13 HIV 1&2 Antibody Rapid Non react (Non React) 08/17/18 11:13 Non react (Non React) 08/17/18 11:13 Active Medications - Current Medications Current Medications: Generic Name Dose Route Start Last Admin Trade Name Freq PRN Reason Stop Dose Admin Acetaminophen 650 mg 08/16/18 03:07 09/07/18 10:07 Tylenol PO 650 mg Q4H PRN Administration Pain MILD(1-3)/Fever >100.5/FRAIRE Albuterol 2.5 mg 08/16/18 03:07 Proventil IH Q4HRT PRN Shortness Of Breath Aspirin 81 mg 08/16/18 10:00 09/07/18 10:46 Baby Aspirin PO 81 mg QDAY [facility] Administration Atorvastatin Calcium 40 mg 08/16/18 22:00 09/06/18 21:25 Lipitor PO 40 mg QHS ARLENE Administration Carvedilol 6.25 mg 08/17/18 12:00 09/07/18 10:07 Coreg PO 6.25 mg BID [facility] Administration Cholecalciferol 5,000 unit 08/16/18 10:00 09/07/18 09:01 Vitamin D3 PO 5,000 unit DAILY [facility] Administration Dextrose 50 ml 08/16/18 03:13 D50w (25gm) Syringe IV PRN PRN Hypoglycemia Docusate Sodium 100 mg 08/16/18 10:00 09/07/18 09:01 Colace PO 100 mg BID [facility] Administration Epoetin Keon 10,000 unit 08/18/18 13:00 09/05/18 12:40 Procrit SUB-Q 10,000 unit MOWEFR [facility] Administration Gabapentin 300 mg 08/16/18 22:00 09/06/18 21:25 Neurontin PO 300 mg QHS [facility] Administration Heparin Sodium (Porcine) 5,000 unit 08/16/18 10:00 09/07/18 09:03 Heparin SUB-Q 5,000 unit Q12HR ARLENE Administration Hydralazine HCl 50 mg 08/16/18 14:00 09/07/18 06:09 Apresoline PO Not Given Q8HR [facility] Sodium Chloride 100 mls @ 999 mls/hr 09/02/18 09:49 Nacl 0.9% IV JANE PRN Hypotension Insulin Human Lispro 0 unit 08/16/18 07:30 09/07/18 09:02 Humalog SUB-Q 2 unit ACHS [facility] Administration Protocol Insulin Human Regular 5 units 08/16/18 07:30 09/07/18 09:02 Humulin R SUB-Q 5 units AC [facility] Administration Nitroglycerin 0.4 mg 08/16/18 03:07 Nitrostat SL .Q5MIN PRN Chest Pain Ondansetron HCl 4 mg 08/16/18 03:07 08/16/18 16:39 Zofran IV 4 mg Q8H PRN Administration Nausea And Vomiting Oxycodone/Acetaminophen 1 tab 08/16/18 03:07 08/23/18 22:06 Percocet 5/325 PO 1 tab Q6H PRN Administration Pain, Moderate (4-6) Sodium Chloride 10 ml 08/16/18 10:00 09/07/18 09:03 Sodium Chloride Flush Syringe 10 Ml IV 10 ml BID ARLENE Administration Sodium Chloride 10 ml 08/16/18 03:07 08/16/18 06:17 Sodium Chloride Flush Syringe 10 Ml IV 10 ml PRN PRN Administration LINE FLUSH Nutrition/Malnutrition Assess - Dietary Evaluation Nutrition/Malnutrition Findings: Nutrition Notes Start: 08/16/18 09:25 Freq: Status: Active Protocol: Document 08/19/18 14:48 GHASSAN (Rec: 08/19/18 14:54 GHASSAN COLE [email or web address]) Nutrition Notes Initial or Follow up Brief Note Current Diagnosis CKD(stage I-IV),Diabetes Other Pertinent Diagnosis Fluid retention in scrotum and BLE edema, wounds on toe, heel and leg Current Diet Cardiac/consistent CHO Labs/Tests Na 134 BUN 55 Cr 4.4 Pertinent Medications Reviewed [place] Body Weight (kg) 0 Subjective/Other Information Pt reports good appetite; has been consuming 75-100% of meals. Nutrition Intervention Revisit per MD consult or patient Sign Off request:
--- NOTE | 2018-09-07 12:50 | Progress Note ---
Assessment and Plan Assessment: ESRD on HD -No acute indication for HD today -HD tomorrow for UF and clearance -Assess need for HD on daily basis -Secondary GN workup was negative -Renal ultrasound on 08/16/18- Chronic medical renal disease. No Hydronephrosis. -Renally dose all medications -Avoid Nephrotoxic agents -Strict I/O's -Mckeon Catheter: None -Patient awaiting placement to [facility] -Renal plan d/w Dr Gordillo Acute Diastolic Congestive heart failure -Echo- LVEF is 55-60% -S/p IV Lasix -UF with HD -Cardiology on board Hyponatremia: - Likely due to hypervolemia - Fluid restriction of 1 liter per day - Repeat serum sodium level at 1700 - UF with HD Anemia of chronic disease due to CKD: -On Epogen for anemia management -Monitor H/H Essential Hypertension: - Continue on current regimen - Adjust medications as needed Diabetes Mellitus type 2 on insulin: -On insulin as per primary team Subjective Date of service: 09/07/18 Principal diagnosis: CHF; CKD; HANSEN; Elevated d-dimer; Essential HTN; Morbid obesity; MARBELLA Interval history: Pt seen in bed, denies shortness of breath. No family at bedside Objective - Vital Signs Vital signs: Vital Signs - 12hr 09/07/18 09/07/18 09/07/18 01:00 05:15 06:09 Temperature 98.0 F Pulse Rate 68 76 76 Respiratory 18 22 Rate Blood Pressure 124/61 113/58 113/58 O2 Sat by Pulse 96 96 Oximetry 09/07/18 09/07/18 07:33 10:07 Temperature Pulse Rate 70 64 Respiratory 17 Rate Blood Pressure 110/44 O2 Sat by Pulse 96 Oximetry - General Appearance General appearance: well-developed EENT: ATNC Neck: no JVD Respiratory: Present: Decreased Breath Sounds Cardiology: regular, S1S2, other (ACCESS: Right IJ Perm Catheter intact) Gastrointestinal: normoactive bowel sounds, no tenderness Integumentary: chronic venous stasis Neurologic: alert and oriented x3 Musculoskeletal: other (2+ edema to BLE) Psychiatric: cooperative - Lab 08/30/18 04:17 09/07/18 04:58 Most recent lab results Calcium 8.9 mg/dL (8.4-10.2) 09/07/18 04:58 Phosphorus 3.90 mg/dL (2.5-4.5) 08/25/18 04:43 56.1 mg/dL (0.1-20.0) H 08/20/18 12:09 132 mmol/L 08/17/18 04:00 79 mg/dL (5-11.8) H 08/17/18 04:00 Medications & Allergies - Medications Allergies/Adverse Reactions: Allergies canagliflozin [From Invokana] Allergy (Verified 08/15/18 17:49) Unknown IV CONTRAST DYE Allergy (Uncoded 08/15/18 17:49) Unknown Home Medications: Home Medications Medication Instructions Recorded Confirmed Last Taken Type Doxylamine Succinate [Unisom] 25 mg PO QHS 08/16/18 08/16/18 Unknown History Niacin [Niacor] 500 mg PO DAILY 08/16/18 08/16/18 Unknown History Triamcinolone Acetonide [Nasacort 10.8 ml NS DAILY 08/16/18 08/16/18 Unknown History SPRAY] Aspirin [Aspirin BABY CHEW TAB] 81 mg PO QDAY tab.chew 09/03/18 Unknown Rx AtorvaSTATin [Lipitor] 40 mg PO QHS #40 tablet 09/03/18 Unknown Rx Carvedilol [Coreg] 6.25 mg PO BID #60 tablet 09/03/18 Unknown Rx Cholecalciferol (Vitamin D3) 5,000 unit PO DAILY #30 capsule 09/03/18 Unknown Rx [Vitamin D3 5,000 UNIT] Epoetin Keon 10,000 Unit [Procrit] 10,000 unit SUB-Q MOWEFR 30 Days 09/03/18 Unknown Rx vial Gabapentin [Neurontin] 300 mg PO QHS #30 capsule 09/03/18 Unknown Rx Insulin Regular, Human [HumuLIN R] 5 units SUB-Q AC 30 Days units 09/03/18 Unknown Rx Lispro Insulin [HumaLOG] 0 unit SUB-Q ACHS units 09/03/18 Unknown Rx Loratadine [Claritin] 10 mg PO DAILY PRN #30 tablet 09/03/18 Unknown Rx Melatonin [Melatonin 3MG TAB] 3 mg PO QHS #30 tablet 09/03/18 Unknown Rx Nitroglycerin [Nitrostat] 0.4 mg SL .Q5MIN PRN tablet 09/03/18 Unknown Rx Omeprazole 20 mg PO DAILY PRN #30 capsule. 09/03/18 Unknown Rx hydrALAZINE [Apresoline TAB] 50 mg PO Q8HR #90 tablet 09/03/18 Unknown Rx oxyCODONE /ACETAMINOPHEN [Percocet 1 tab PO Q6H PRN #8 tablet 09/03/18 Unknown Rx 5/325 mg] Active Medications: Generic Name Dose Route Start Last Admin Trade Name Freq PRN Reason Stop Dose Admin Acetaminophen 650 mg 08/16/18 03:07 09/07/18 10:07 Tylenol PO 650 mg Q4H PRN Administration Pain MILD(1-3)/Fever >100.5/FRAIRE Albuterol 2.5 mg 08/16/18 03:07 Proventil IH Q4HRT PRN Shortness Of Breath Aspirin 81 mg 08/16/18 10:00 09/07/18 10:46 Baby Aspirin PO 81 mg QDAY [facility] Administration Atorvastatin Calcium 40 mg 08/16/18 22:00 09/06/18 21:25 Lipitor PO 40 mg QHS [facility] Administration Carvedilol 6.25 mg 08/17/18 12:00 09/07/18 10:07 Coreg PO 6.25 mg BID [facility] Administration Cholecalciferol 5,000 unit 08/16/18 10:00 09/07/18 09:01 Vitamin D3 PO 5,000 unit DAILY [facility] Administration Dextrose 50 ml 08/16/18 03:13 D50w (25gm) Syringe IV PRN PRN Hypoglycemia Docusate Sodium 100 mg 08/16/18 10:00 09/07/18 09:01 Colace PO 100 mg BID [facility] Administration Epoetin [place] 10,000 unit 08/18/18 13:00 09/05/18 12:40 Procrit SUB-Q 10,000 unit MOWEFR [facility] Administration Gabapentin 300 mg 08/16/18 22:00 09/06/18 21:25 Neurontin PO 300 mg QHS [facility] Administration Heparin Sodium (Porcine) 5,000 unit 08/16/18 10:00 09/07/18 09:03 Heparin SUB-Q 5,000 unit Q12HR [facility] Administration Hydralazine HCl 50 mg 08/16/18 14:00 09/07/18 06:09 Apresoline PO Not Given Q8HR [facility] Sodium Chloride 100 mls @ 999 mls/hr 09/02/18 09:49 Nacl 0.9% IV JANE PRN Hypotension Insulin Human Lispro 0 unit 08/16/18 07:30 09/07/18 09:02 Humalog SUB-Q 2 unit ACHS [facility] Administration Protocol Insulin Human Regular 5 units 08/16/18 07:30 09/07/18 09:02 Humulin R SUB-Q 5 units AC [facility] Administration Nitroglycerin 0.4 mg 08/16/18 03:07 Nitrostat SL .Q5MIN PRN Chest Pain Ondansetron HCl 4 mg 08/16/18 03:07 08/16/18 16:39 Zofran IV 4 mg Q8H PRN Administration Nausea And Vomiting Oxycodone/Acetaminophen 1 tab 08/16/18 03:07 08/23/18 22:06 Percocet 5/325 PO 1 tab Q6H PRN Administration Pain, Moderate (4-6) Sodium Chloride 10 ml 08/16/18 10:00 09/07/18 09:03 Sodium Chloride Flush Syringe 10 Ml IV 10 ml BID [facility] Administration Sodium Chloride 10 ml 08/16/18 03:07 08/16/18 06:17 Sodium Chloride Flush Syringe 10 Ml IV 10 ml PRN PRN Administration LINE FLUSH
[2018-09-07] MEDS ORDERED: IBUPROFEN PO PRN (16:20)
--- NOTE | 2018-09-07 17:40 | Progress Note ---
Assessment and Plan Patient awake and resting on room air at this time. O2 sat 97%. No acute respiratory distress. Recommend to use O2 2L when he is not on BiPAP. Patient uses BIPAP at night . Pressures . - Patient Problems (1) CHF (congestive heart failure) Current Visit: Yes Status: Acute Qualifiers: Heart failure type: diastolic Heart failure chronicity: acute Qualified Code(s): I50.31 - Acute diastolic (congestive) heart failure Plan to address problem: Management as per cardiology. (2) CKD (chronic kidney disease) Current Visit: Yes Status: Acute Qualifiers: Chronic kidney disease stage: stage 3 (moderate) Qualified Code(s): N18.3 - Chronic kidney disease, stage 3 (moderate) Plan to address problem: Patient is on hemodialysis. Management as per nephrology. (3) HANSEN (dyspnea on exertion) Current Visit: Yes Status: Acute Plan to address problem: Albuterol aerosol treatments q 6 hours prn for shortness of breath. O2 2 litres via nasal canula BIPAP during night time and PRN during day time for shortness of breath. Continue S/C Heparin. (4) Elevated d-dimer Current Visit: Yes Status: Acute Plan to address problem: Venous doppler studies reported negative for DVT. Perfusion lung scan reported low probabily for pulmonary emboli. Continue S/C heparin. (5) Essential hypertension Current Visit: Yes Status: Chronic Plan to address problem: Management as per primary care. (6) Morbid obesity Current Visit: Yes Status: Chronic Plan to address problem: Recommend to loose weight. Exercise and diet. (7) Sleep apnea with use of continuous positive airway pressure (CPAP) Current Visit: Yes Status: Acute Plan to address problem: Continue BIPAP as using at home. Subjective Date of service: 09/07/18 Principal diagnosis: CHF; CKD; HANSEN; Elevated d-dimer; Essential HTN; Morbid obesity; MARBELLA Interval history: Patient awake and resting on room air at this time. O2 sat 97%. No acute respiratory distress. Recommend to use O2 2L when he is not on BiPAP. Patient uses BIPAP at night . Pressures . Objective Vital Signs - 12hr 09/07/18 09/07/18 09/07/18 06:09 07:33 10:07 Temperature Pulse Rate 76 70 64 Respiratory 17 Rate Blood Pressure 113/58 110/44 O2 Sat by Pulse 96 Oximetry 09/07/18 09/07/18 09/07/18 12:12 14:33 14:39 Temperature 97.4 F L Pulse Rate 62 60 Respiratory 20 Rate Blood Pressure 117/58 110/64 O2 Sat by Pulse 98 Oximetry Constitutional: no acute distress, alert, other (Morbidly Obese middle aged CM) Eyes: non-icteric ENT: oropharynx moist, other (mallampati 4) Neck: supple, no JVD, other (large neck circumference) Effort: mildly labored Ascultation: Bilateral: diminished breath sounds, rhonchi (scant in bases) Percussion: Bilateral: not dull Cardiovascular: regular rate and rhythm Gastrointestinal: normoactive bowel sounds, soft, non-tender, other (protuberant) Integumentary: cellulitis, other (Cellulitis and wounds in both lower legs.) Extremities: no cyanosis, pink and warm, pulses normal, edema (trace to 1+) Neurologic: normal mental status, non-focal exam, pupils equal and round, CN II- XII normal Psychiatric: mood appropriate, affect normal CBC and BMP: 08/30/18 04:17 09/08/18 05:39 ABG, PT/INR, D-dimer: PT/INR, D-dimer 463.24 ng/mlDDU (0-234) H 08/15/18 21:24 Abnormal lab findings: Abnormal Labs 08/15/18 08/15/18 08/15/18 18:02 18:54 18:54 WBC RBC 3.61 L Hgb 9.8 L Hct 30.1 L MCV MCH 27 L RDW 16.8 H Plt Count [place] % (Auto) 10.7 H Eos % (Auto) 5.9 H Seg Neuts % (Manual) Lymphocytes % (Manual) Monocytes % (Manual) Eosinophils % (Manual) Basophils % (Manual) Seg Neutrophils # Man D-Dimer Sodium Chloride 107.7 H BUN 25 H Creatinine 2.5 H Glucose 159 H POC Glucose 124 H Hemoglobin A1c Calcium Phosphorus Iron Total Creatine Kinase CK-MB (CK-2) Albumin 3.2 L Svill-4-Mjozeeyqr PEP Interpretation HDL Cholesterol Urine Creatinine Urine Total Protein 08/15/18 08/15/18 08/16/18 21:24 21:24 03:37 WBC RBC Hgb Hct MCV MCH RDW Plt Count [place] % (Auto) Eos % (Auto) Seg Neuts % (Manual) Lymphocytes % (Manual) Monocytes % (Manual) Eosinophils % (Manual) Basophils % (Manual) Seg Neutrophils # Man D-Dimer 463.24 H Sodium Chloride BUN Creatinine Glucose POC Glucose Hemoglobin A1c 7.4 H Calcium Phosphorus Iron Total Creatine Kinase 340 H CK-MB (CK-2) 5.0 H Albumin Qirzu-7-Xbegrqrxb PEP Interpretation HDL Cholesterol Urine Creatinine Urine Total Protein 08/16/18 08/16/18 08/16/18 03:37 07:54 12:01 WBC RBC Hgb Hct MCV MCH RDW Plt Count [place] % (Auto) Eos % (Auto) Seg Neuts % (Manual) Lymphocytes % (Manual) Monocytes % (Manual) Eosinophils % (Manual) Basophils % (Manual) Seg Neutrophils # Sadi D-Dimer Sodium Chloride BUN Creatinine Glucose POC Glucose 113 H 179 H Hemoglobin A1c Calcium Phosphorus Iron Total Creatine Kinase CK-MB (CK-2) Albumin Oghyt-5-Jdcpabqmd PEP Interpretation HDL Cholesterol 37 L Urine Creatinine Urine Total Protein 08/16/18 08/16/18 08/16/18 13:52 17:44 21:21 WBC RBC Hgb Hct MCV MCH RDW Plt Count [place] % (Auto) Eos % (Auto) Seg Neuts % (Manual) Lymphocytes % (Manual) Monocytes % (Manual) Eosinophils % (Manual) Basophils % (Manual) Seg Neutrophils # Sadi D-Dimer Sodium Chloride BUN Creatinine Glucose POC Glucose 221 H 165 H Hemoglobin A1c Calcium Phosphorus Iron 30 L Total Creatine Kinase CK-MB (CK-2) Albumin Wluwt-6-Yhgspmoxl PEP Interpretation HDL Cholesterol Urine Creatinine Urine Total Protein 08/17/18 08/17/18 08/17/18 04:00 07:30 07:30 WBC RBC Hgb 10.3 L Hct 31.5 L MCV 82 L MCH 27 L RDW 16.8 H Plt Count [place] % (Auto) 14.0 H Eos % (Auto) 6.6 H Seg Neuts % (Manual) Lymphocytes % (Manual) Monocytes % (Manual) Eosinophils % (Manual) Basophils % (Manual) Seg Neutrophils # Man D-Dimer Sodium Chloride BUN 32 H Creatinine 2.9 H Glucose 180 H POC Glucose Hemoglobin A1c Calcium Phosphorus Iron Total Creatine Kinase CK-MB (CK-2) Albumin Rvgrs-3-Thdcnvycw PEP Interpretation HDL Cholesterol Urine Creatinine 22.4 H Urine Total Protein 79 H 08/17/18 08/17/18 08/17/18 07:34 11:13 12:17 WBC RBC Hgb Hct MCV MCH RDW Plt Count [place] % (Auto) Eos % (Auto) Seg Neuts % (Manual) Lymphocytes % (Manual) Monocytes % (Manual) Eosinophils % (Manual) Basophils % (Manual) Seg Neutrophils # Sadi D-Dimer Sodium Chloride BUN Creatinine Glucose POC Glucose 169 H 207 H Hemoglobin A1c Calcium Phosphorus Iron Total Creatine Kinase CK-MB (CK-2) Albumin 2.9 L Qenjt-8-Oxdlrztfq 0.4 H PEP Interpretation see below H HDL Cholesterol Urine Creatinine Urine Total Protein 08/17/18 08/17/18 08/18/18 16:36 21:17 07:05 WBC RBC Hgb Hct MCV MCH RDW Plt Count [place] % (Auto) Eos % (Auto) Seg Neuts % (Manual) Lymphocytes % (Manual) Monocytes % (Manual) Eosinophils % (Manual) Basophils % (Manual) Seg Neutrophils # Sadi D-Dimer Sodium 134 L Chloride 95.9 L BUN 43 H Creatinine 3.8 H Glucose 150 H POC Glucose 184 H 209 H Hemoglobin A1c Calcium Phosphorus Iron Total Creatine Kinase CK-MB (CK-2) Albumin Lmuhx-7-Yhbioxcsc PEP Interpretation HDL Cholesterol Urine Creatinine Urine Total Protein 08/18/18 08/18/18 08/18/18 07:53 08:34 11:53 WBC RBC Hgb 10.8 L Hct 33.8 L MCV MCH 27 L RDW 16.3 H Plt Count [place] % (Auto) Eos % (Auto) Seg Neuts % (Manual) Lymphocytes % (Manual) Monocytes % (Manual) Eosinophils % (Manual) Basophils % (Manual) Seg Neutrophils # Sadi D-Dimer Sodium Chloride BUN Creatinine Glucose POC Glucose 139 H 191 H Hemoglobin A1c Calcium Phosphorus Iron Total Creatine Kinase CK-MB (CK-2) Albumin Hltey-3-Vinmgknhj PEP Interpretation HDL Cholesterol Urine Creatinine Urine Total Protein 08/18/18 08/18/18 08/19/18 15:54 20:49 05:28 WBC RBC Hgb 9.7 L Hct 30.1 L MCV 82 L MCH 26 L RDW 16.6 H Plt Count 136 L [place] % (Auto) Eos % (Auto) Seg Neuts % (Manual) Lymphocytes % (Manual) Monocytes % (Manual) Eosinophils % (Manual) Basophils % (Manual) Seg Neutrophils # Sadi D-Dimer Sodium Chloride BUN Creatinine Glucose POC Glucose 150 H 138 H Hemoglobin A1c Calcium Phosphorus Iron Total Creatine Kinase CK-MB (CK-2) Albumin Ewakb-1-Uootlrfue PEP Interpretation HDL Cholesterol Urine Creatinine Urine Total Protein 08/19/18 08/19/18 08/19/18 05:28 07:43 11:57 WBC RBC Hgb Hct MCV MCH RDW Plt Count [place] % (Auto) Eos % (Auto) Seg Neuts % (Manual) Lymphocytes % (Manual) Monocytes % (Manual) Eosinophils % (Manual) Basophils % (Manual) Seg Neutrophils Rosette Avitia D-Dimer Sodium 134 L Chloride 96.2 L BUN 55 H Creatinine 4.4 H Glucose 118 H POC Glucose 162 H 280 H Hemoglobin A1c Calcium Phosphorus Iron Total Creatine Kinase CK-MB (CK-2) Albumin Jywwb-1-Czcpncsbe PEP Interpretation HDL Cholesterol Urine Creatinine Urine Total Protein 08/19/18 08/19/18 08/20/18 15:41 21:44 04:53 WBC 3.5 L RBC 3.58 L Hgb 9.4 L Hct 29.5 L MCV 83 L MCH 26 L RDW 16.4 H Plt Count 121 L [place] % (Auto) Eos % (Auto) Seg Neuts % (Manual) Lymphocytes % (Manual) Monocytes % (Manual) 16.0 H Eosinophils % (Manual) Basophils % (Manual) 3.0 H Seg Neutrophils # Sadi 1.6 L D-Dimer Sodium Chloride BUN Creatinine Glucose POC Glucose 167 H 234 H Hemoglobin A1c Calcium Phosphorus Iron Total Creatine Kinase CK-MB (CK-2) Albumin Anyht-4-Yskgonrdm PEP Interpretation HDL Cholesterol Urine Creatinine Urine Total Protein 08/20/18 08/20/18 08/20/18 04:53 08:13 12:09 WBC RBC Hgb Hct MCV MCH RDW Plt Count [place] % (Auto) Eos % (Auto) Seg Neuts % (Manual) Lymphocytes % (Manual) Monocytes % (Manual) Eosinophils % (Manual) Basophils % (Manual) Seg Neutrophils Rosette Avitia D-Dimer Sodium 136 L Chloride BUN 57 H Creatinine 3.3 H Glucose 136 H POC Glucose 124 H Hemoglobin A1c Calcium Phosphorus 5.50 H Iron Total Creatine Kinase CK-MB (CK-2) Albumin Jtdjx-3-Nhdyyctfw PEP Interpretation HDL Cholesterol Urine Creatinine 56.1 H Urine Total Protein 05/29/19 05/29/19 05/29/19 12:49 18:26 20:53 WBC RBC Hgb Hct MCV MCH RDW Plt Count [place] % (Auto) Eos % (Auto) Seg Neuts % (Manual) Lymphocytes % (Manual) Monocytes % (Manual) Eosinophils % (Manual) Basophils % (Manual) Seg Neutrophils # Man D-Dimer Sodium Chloride BUN Creatinine Glucose POC Glucose 145 H 175 H 184 H Hemoglobin A1c Calcium Phosphorus Iron Total Creatine Kinase CK-MB (CK-2) Albumin Dkpom-4-Rmoqdhibz PEP Interpretation HDL Cholesterol Urine Creatinine Urine Total Protein 08/21/18 08/21/18 08/21/18 04:28 04:28 08:58 WBC 3.8 L RBC 3.42 L Hgb 9.2 L Hct 28.4 L MCV 83 L MCH 27 L RDW 16.4 H Plt Count 126 L [place] % (Auto) Eos % (Auto) Seg Neuts % (Manual) Lymphocytes % (Manual) Monocytes % (Manual) 15.0 H Eosinophils % (Manual) Basophils % (Manual) Seg Neutrophils # Sadi D-Dimer Sodium 134 L Chloride 96.5 L BUN 59 H Creatinine 3.4 H Glucose 190 H POC Glucose 159 H Hemoglobin A1c Calcium Phosphorus 5.10 H Iron Total Creatine Kinase CK-MB (CK-2) Albumin Kvvmn-2-Kechgcbyj PEP Interpretation HDL Cholesterol Urine Creatinine Urine Total Protein 08/21/18 08/21/18 08/21/18 12:25 17:10 21:43 WBC RBC Hgb Hct MCV MCH RDW Plt Count [place] % (Auto) Eos % (Auto) Seg Neuts % (Manual) Lymphocytes % (Manual) Monocytes % (Manual) Eosinophils % (Manual) Basophils % (Manual) Seg Neutrophils # Sadi D-Dimer Sodium Chloride BUN Creatinine Glucose POC Glucose 222 H 152 H 150 H Hemoglobin A1c Calcium Phosphorus Iron Total Creatine Kinase CK-MB (CK-2) Albumin Ubotv-9-Twjjrylkf PEP Interpretation HDL Cholesterol Urine Creatinine Urine Total Protein 08/22/18 08/22/18 08/22/18 04:50 04:51 08:08 WBC 3.7 L RBC 3.37 L Hgb 9.0 L Hct 27.8 L MCV 83 L MCH 27 L RDW 16.9 H Plt Count 124 L [place] % (Auto) Eos % (Auto) Seg Neuts % (Manual) Lymphocytes % (Manual) Monocytes % (Manual) 13.0 H Eosinophils % (Manual) 11.0 H Basophils % (Manual) Seg Neutrophils # Sadi 1.6 L D-Dimer Sodium 135 L Chloride 97.4 L BUN 64 H Creatinine 3.5 H Glucose 114 H POC Glucose 117 H Hemoglobin A1c Calcium Phosphorus 4.90 H Iron Total Creatine Kinase CK-MB (CK-2) Albumin Dtfyv-2-Irgdloalo PEP Interpretation HDL Cholesterol Urine Creatinine Urine Total Protein 08/22/18 08/22/18 08/23/18 14:48 21:36 05:09 WBC 4.3 L RBC 3.60 L Hgb 9.6 L Hct 29.6 L MCV 82 L MCH 27 L RDW 16.6 H Plt Count 134 L [place] % (Auto) Eos % (Auto) Seg Neuts % (Manual) 38.0 L Lymphocytes % (Manual) 51.0 H Monocytes % (Manual) 8.0 H Eosinophils % (Manual) Basophils % (Manual) Seg Neutrophils # Sadi 1.6 L D-Dimer Sodium Chloride BUN Creatinine Glucose POC Glucose 211 H 268 H Hemoglobin A1c Calcium Phosphorus Iron Total Creatine Kinase CK-MB (CK-2) Albumin Xzrjd-6-Pknuappjf PEP Interpretation HDL Cholesterol Urine Creatinine Urine Total Protein 08/23/18 08/23/18 08/23/18 05:09 07:44 14:02 WBC RBC Hgb Hct MCV MCH RDW Plt Count [place] % (Auto) Eos % (Auto) Seg Neuts % (Manual) Lymphocytes % (Manual) Monocytes % (Manual) Eosinophils % (Manual) Basophils % (Manual) Seg Neutrophils # Sadi D-Dimer Sodium Chloride BUN 45 H Creatinine 2.6 H Glucose 174 H POC Glucose 240 H 161 H Hemoglobin A1c Calcium Phosphorus Iron Total Creatine Kinase CK-MB (CK-2) Albumin Drsoo-3-Eufwekowj PEP Interpretation HDL Cholesterol Urine Creatinine Urine Total Protein 08/23/18 08/23/18 08/24/18 17:33 20:32 05:09 WBC RBC Hgb Hct MCV MCH RDW Plt Count [place] % (Auto) Eos % (Auto) Seg Neuts % (Manual) Lymphocytes % (Manual) Monocytes % (Manual) Eosinophils % (Manual) Basophils % (Manual) Seg Neutrophils # Man D-Dimer Sodium 135 L Chloride 97.4 L BUN 38 H Creatinine 2.3 H Glucose 183 H POC Glucose 217 H 208 H Hemoglobin A1c Calcium Phosphorus Iron Total Creatine Kinase CK-MB (CK-2) Albumin Rwyae-8-Vcqmwyads PEP Interpretation HDL Cholesterol Urine Creatinine Urine Total Protein 08/24/18 08/24/18 08/24/18 07:49 11:32 16:44 WBC RBC Hgb Hct MCV MCH RDW Plt Count [place] % (Auto) Eos % (Auto) Seg Neuts % (Manual) Lymphocytes % (Manual) Monocytes % (Manual) Eosinophils % (Manual) Basophils % (Manual) Seg Neutrophils # Sadi D-Dimer Sodium Chloride BUN Creatinine Glucose POC Glucose 171 H 271 H 168 H Hemoglobin A1c Calcium Phosphorus Iron Total Creatine Kinase CK-MB (CK-2) Albumin Tcxde-1-Rtydrfxmx PEP Interpretation HDL Cholesterol Urine Creatinine Urine Total Protein 08/24/18 08/25/18 08/25/18 20:54 04:43 04:43 WBC RBC 3.41 L Hgb 9.1 L Hct 28.0 L MCV 82 L MCH 27 L RDW 17.0 H Plt Count 133 L [place] % (Auto) Eos % (Auto) Seg Neuts % (Manual) Lymphocytes % (Manual) Monocytes % (Manual) 10.0 H Eosinophils % (Manual) Basophils % (Manual) Seg Neutrophils # Sadi D-Dimer Sodium 136 L Chloride BUN 44 H Creatinine 2.6 H Glucose 193 H POC Glucose 214 H Hemoglobin A1c Calcium Phosphorus Iron Total Creatine Kinase CK-MB (CK-2) Albumin Xcjvx-7-Jhmnrtatn PEP Interpretation HDL Cholesterol Urine Creatinine Urine Total Protein 08/25/18 08/25/18 08/25/18 08:04 13:43 16:39 WBC RBC Hgb Hct MCV MCH RDW Plt Count [place] % (Auto) Eos % (Auto) Seg Neuts % (Manual) Lymphocytes % (Manual) Monocytes % (Manual) Eosinophils % (Manual) Basophils % (Manual) Seg Neutrophils # Sadi D-Dimer Sodium Chloride BUN Creatinine Glucose POC Glucose 167 H 193 H 249 H Hemoglobin A1c Calcium Phosphorus Iron Total Creatine Kinase CK-MB (CK-2) Albumin Uordw-4-Eyvtogrbx PEP Interpretation HDL Cholesterol Urine Creatinine Urine Total Protein 08/25/18 08/26/18 08/26/18 21:15 04:56 07:21 WBC RBC Hgb Hct MCV MCH RDW Plt Count [place] % (Auto) Eos % (Auto) Seg Neuts % (Manual) Lymphocytes % (Manual) Monocytes % (Manual) Eosinophils % (Manual) Basophils % (Manual) Seg Neutrophils # Sadi D-Dimer Sodium 133 L Chloride 96.3 L BUN 32 H Creatinine 2.1 H Glucose 186 H POC Glucose 176 H 183 H Hemoglobin A1c Calcium 8.3 L Phosphorus Iron Total Creatine Kinase CK-MB (CK-2) Albumin Prfhv-1-Jgbwqgows PEP Interpretation HDL Cholesterol Urine Creatinine Urine Total Protein 08/26/18 08/26/18 08/26/18 14:34 16:34 21:07 WBC RBC Hgb Hct MCV MCH RDW Plt Count [place] % (Auto) Eos % (Auto) Seg Neuts % (Manual) Lymphocytes % (Manual) Monocytes % (Manual) Eosinophils % (Manual) Basophils % (Manual) Seg Neutrophils # Man D-Dimer Sodium Chloride BUN Creatinine Glucose POC Glucose 165 H 206 H 185 H Hemoglobin A1c Calcium Phosphorus Iron Total Creatine Kinase CK-MB (CK-2) Albumin Aeqio-3-Mytsdgiav PEP Interpretation HDL Cholesterol Urine Creatinine Urine Total Protein 08/27/18 08/27/18 08/27/18 07:34 08:23 16:31 WBC RBC Hgb Hct MCV MCH RDW Plt Count [place] % (Auto) Eos % (Auto) Seg Neuts % (Manual) Lymphocytes % (Manual) Monocytes % (Manual) Eosinophils % (Manual) Basophils % (Manual) Seg Neutrophils # Man D-Dimer Sodium 135 L Chloride 97.3 L BUN 28 H Creatinine 2.4 H Glucose 130 H POC Glucose 136 H 229 H Hemoglobin A1c Calcium 8.0 L Phosphorus Iron Total Creatine Kinase CK-MB (CK-2) Albumin Hxhzk-6-Enuabvgid PEP Interpretation HDL Cholesterol Urine Creatinine Urine Total Protein 08/27/18 08/28/18 08/28/18 21:32 04:40 07:48 WBC RBC Hgb Hct MCV MCH RDW Plt Count [place] % (Auto) Eos % (Auto) Seg Neuts % (Manual) Lymphocytes % (Manual) Monocytes % (Manual) Eosinophils % (Manual) Basophils % (Manual) Seg Neutrophils # Man D-Dimer Sodium 135 L Chloride 97.9 L BUN 25 H Creatinine 2.2 H Glucose 118 H POC Glucose 142 H 120 H Hemoglobin A1c Calcium Phosphorus Iron Total Creatine Kinase CK-MB (CK-2) Albumin Jvola-5-Iniruxuex PEP Interpretation HDL Cholesterol Urine Creatinine Urine Total Protein 08/28/18 08/28/18 08/29/18 17:11 20:52 04:29 WBC RBC Hgb Hct MCV MCH RDW Plt Count [place] % (Auto) Eos % (Auto) Seg Neuts % (Manual) Lymphocytes % (Manual) Monocytes % (Manual) Eosinophils % (Manual) Basophils % (Manual) Seg Neutrophils # Sadi D-Dimer Sodium 134 L Chloride 93.3 L BUN 36 H Creatinine 2.9 H Glucose 187 H POC Glucose 209 H 188 H Hemoglobin A1c Calcium Phosphorus Iron Total Creatine Kinase CK-MB (CK-2) Albumin Vqcwa-5-Gdpkkplue PEP Interpretation HDL Cholesterol Urine Creatinine Urine Total Protein 08/29/18 08/29/18 08/29/18 08:21 16:54 22:22 WBC RBC Hgb Hct MCV MCH RDW Plt Count [place] % (Auto) Eos % (Auto) Seg Neuts % (Manual) Lymphocytes % (Manual) Monocytes % (Manual) Eosinophils % (Manual) Basophils % (Manual) Seg Neutrophils # Sadi D-Dimer Sodium Chloride BUN Creatinine Glucose POC Glucose 144 H 277 H 240 H Hemoglobin A1c Calcium Phosphorus Iron Total Creatine Kinase CK-MB (CK-2) Albumin Vuaxy-5-Clxyekqrl PEP Interpretation HDL Cholesterol Urine Creatinine Urine Total Protein 08/30/18 08/30/18 08/30/18 04:17 04:17 07:56 WBC RBC 3.64 L Hgb 9.8 L Hct 29.6 L MCV 81 L MCH 27 L RDW 16.8 H Plt Count [place] % (Auto) Eos % (Auto) Seg Neuts % (Manual) Lymphocytes % (Manual) Monocytes % (Manual) Eosinophils % (Manual) Basophils % (Manual) Seg Neutrophils # Sadi D-Dimer Sodium 133 L Chloride 96.4 L BUN 33 H Creatinine 2.9 H Glucose 142 H POC Glucose 134 H Hemoglobin A1c Calcium Phosphorus Iron Total Creatine Kinase CK-MB (CK-2) Albumin Ipnrp-8-Irtliarhs PEP Interpretation HDL Cholesterol Urine Creatinine Urine Total Protein 08/30/18 08/30/18 08/31/18 17:11 20:58 07:57 WBC RBC Hgb Hct MCV MCH RDW Plt Count [place] % (Auto) Eos % (Auto) Seg Neuts % (Manual) Lymphocytes % (Manual) Monocytes % (Manual) Eosinophils % (Manual) Basophils % (Manual) Seg Neutrophils # Sadi D-Dimer Sodium Chloride BUN Creatinine Glucose POC Glucose 223 H 238 H 143 H Hemoglobin A1c Calcium Phosphorus Iron Total Creatine Kinase CK-MB (CK-2) Albumin Wnzfm-9-Pzknfivco PEP Interpretation HDL Cholesterol Urine Creatinine Urine Total Protein 08/31/18 08/31/18 08/31/18 09:06 11:13 16:45 WBC RBC Hgb Hct MCV MCH RDW Plt Count [place] % (Auto) Eos % (Auto) Seg Neuts % (Manual) Lymphocytes % (Manual) Monocytes % (Manual) Eosinophils % (Manual) Basophils % (Manual) Seg Neutrophils # Sadi D-Dimer Sodium 130 L Chloride 87.5 L BUN 47 H Creatinine 3.5 H Glucose 214 H POC Glucose 223 H 320 H Hemoglobin A1c Calcium Phosphorus Iron Total Creatine Kinase CK-MB (CK-2) Albumin Xghxs-3-Dizeiiytf PEP Interpretation HDL Cholesterol Urine Creatinine Urine Total Protein 08/31/18 09/01/18 09/01/18 21:48 05:52 07:25 WBC RBC Hgb Hct MCV MCH RDW Plt Count [place] % (Auto) Eos % (Auto) Seg Neuts % (Manual) Lymphocytes % (Manual) Monocytes % (Manual) Eosinophils % (Manual) Basophils % (Manual) Seg Neutrophils # Sadi D-Dimer Sodium 129 L Chloride 91.1 L BUN 57 H Creatinine 3.5 H Glucose 138 H POC Glucose 197 H 133 H Hemoglobin A1c Calcium Phosphorus Iron Total Creatine Kinase CK-MB (CK-2) Albumin Jrtoe-6-Uuhrrznpu PEP Interpretation HDL Cholesterol Urine Creatinine Urine Total Protein 09/01/18 09/01/18 09/01/18 14:47 16:56 21:24 WBC RBC Hgb Hct MCV MCH RDW Plt Count [place] % (Auto) Eos % (Auto) Seg Neuts % (Manual) Lymphocytes % (Manual) Monocytes % (Manual) Eosinophils % (Manual) Basophils % (Manual) Seg Neutrophils # Sadi D-Dimer Sodium Chloride BUN Creatinine Glucose POC Glucose 230 H 264 H 233 H Hemoglobin A1c Calcium Phosphorus Iron Total Creatine Kinase CK-MB (CK-2) Albumin Mmoev-3-Fgtqeyiyg PEP Interpretation HDL Cholesterol Urine Creatinine Urine Total Protein 09/02/18 09/02/18 09/02/18 06:46 07:55 11:47 WBC RBC Hgb Hct MCV MCH RDW Plt Count [place] % (Auto) Eos % (Auto) Seg Neuts % (Manual) Lymphocytes % (Manual) Monocytes % (Manual) Eosinophils % (Manual) Basophils % (Manual) Seg Neutrophils # Sadi D-Dimer Sodium 129 L Chloride 92.4 L BUN 42 H Creatinine 3.5 H Glucose 138 H POC Glucose 140 H 186 H Hemoglobin A1c Calcium Phosphorus Iron Total Creatine Kinase CK-MB (CK-2) Albumin Hylrc-4-Kyutpzwtu PEP Interpretation HDL Cholesterol Urine Creatinine Urine Total Protein 09/02/18 09/03/18 09/03/18 21:44 07:55 17:07 WBC RBC Hgb Hct MCV MCH RDW Plt Count [place] % (Auto) Eos % (Auto) Seg Neuts % (Manual) Lymphocytes % (Manual) Monocytes % (Manual) Eosinophils % (Manual) Basophils % (Manual) Seg Neutrophils # Man D-Dimer Sodium Chloride BUN Creatinine Glucose POC Glucose 224 H 127 H 249 H Hemoglobin A1c Calcium Phosphorus Iron Total Creatine Kinase CK-MB (CK-2) Albumin Mroxn-7-Biaxrzdun PEP Interpretation HDL Cholesterol Urine Creatinine Urine Total Protein 09/03/18 09/04/18 09/04/18 21:23 07:52 11:13 WBC RBC Hgb Hct MCV MCH RDW Plt Count [place] % (Auto) Eos % (Auto) Seg Neuts % (Manual) Lymphocytes % (Manual) Monocytes % (Manual) Eosinophils % (Manual) Basophils % (Manual) Seg Neutrophils # Sadi D-Dimer Sodium Chloride BUN Creatinine Glucose POC Glucose 212 H 118 H 186 H Hemoglobin A1c Calcium Phosphorus Iron Total Creatine Kinase CK-MB (CK-2) Albumin Mcqxu-5-Fnlxeuaxz PEP Interpretation HDL Cholesterol Urine Creatinine Urine Total Protein 09/04/18 09/04/18 09/05/18 16:43 21:32 05:18 WBC RBC Hgb Hct MCV MCH RDW Plt Count [place] % (Auto) Eos % (Auto) Seg Neuts % (Manual) Lymphocytes % (Manual) Monocytes % (Manual) Eosinophils % (Manual) Basophils % (Manual) Seg Neutrophils # Man D-Dimer Sodium 130 L Chloride 91.5 L BUN 47 H Creatinine 4.7 H Glucose 199 H POC Glucose 155 H 235 H Hemoglobin A1c Calcium Phosphorus Iron Total Creatine Kinase CK-MB (CK-2) Albumin Hqdeq-5-Ehuajwthl PEP Interpretation HDL Cholesterol Urine Creatinine Urine Total Protein 09/05/18 09/05/18 09/05/18 07:39 16:40 21:24 WBC RBC Hgb Hct MCV MCH RDW Plt Count [place] % (Auto) Eos % (Auto) Seg Neuts % (Manual) Lymphocytes % (Manual) Monocytes % (Manual) Eosinophils % (Manual) Basophils % (Manual) Seg Neutrophils # Man D-Dimer Sodium Chloride BUN Creatinine Glucose POC Glucose 181 H 242 H 287 H Hemoglobin A1c Calcium Phosphorus Iron Total Creatine Kinase CK-MB (CK-2) Albumin Nedna-7-Ejrqeibvm PEP Interpretation HDL Cholesterol Urine Creatinine Urine Total Protein 09/06/18 09/06/18 09/06/18 04:15 08:46 12:32 WBC RBC Hgb Hct MCV MCH RDW Plt Count [place] % (Auto) Eos % (Auto) Seg Neuts % (Manual) Lymphocytes % (Manual) Monocytes % (Manual) Eosinophils % (Manual) Basophils % (Manual) Seg Neutrophils # Sadi D-Dimer Sodium 132 L Chloride 91.6 L BUN 37 H Creatinine 4.0 H Glucose 191 H POC Glucose 146 H 184 H Hemoglobin A1c Calcium Phosphorus Iron Total Creatine Kinase CK-MB (CK-2) Albumin [id number] PEP Interpretation HDL Cholesterol Urine Creatinine Urine Total Protein 09/06/18 09/06/18 09/07/18 17:18 21:39 04:58 WBC RBC Hgb Hct MCV MCH RDW Plt Count [place] % (Auto) Eos % (Auto) Seg Neuts % (Manual) Lymphocytes % (Manual) Monocytes % (Manual) Eosinophils % (Manual) Basophils % (Manual) Seg Neutrophils # Sadi D-Dimer Sodium 127 L Chloride 89.2 L BUN 50 H Creatinine 4.5 H Glucose 197 H POC Glucose 169 H 209 H Hemoglobin A1c Calcium Phosphorus Iron Total Creatine Kinase CK-MB (CK-2) Albumin [id number] PEP Interpretation HDL Cholesterol Urine Creatinine Urine Total Protein 09/07/18 09/07/18 09/07/18 07:34 11:24 16:05 WBC RBC Hgb Hct MCV MCH RDW Plt Count Villalba % (Auto) Eos % (Auto) Seg Neuts % (Manual) Lymphocytes % (Manual) Monocytes % (Manual) Eosinophils % (Manual) Basophils % (Manual) Seg Neutrophils # Sadi D-Dimer Sodium 126 L Chloride BUN Creatinine Glucose POC Glucose 168 H 239 H Hemoglobin A1c Calcium Phosphorus Iron Total Creatine Kinase CK-MB (CK-2) Albumin [id number] PEP Interpretation HDL Cholesterol Urine Creatinine Urine Total Protein 09/07/18 16:24 WBC RBC Hgb Hct MCV MCH RDW Plt Count Villalba % (Auto) Eos % (Auto) Seg Neuts % (Manual) Lymphocytes % (Manual) Monocytes % (Manual) Eosinophils % (Manual) Basophils % (Manual) Seg Neutrophils # Sadi D-Dimer Sodium Chloride BUN Creatinine Glucose POC Glucose 181 H Hemoglobin A1c Calcium Phosphorus Iron Total Creatine Kinase CK-MB (CK-2) Albumin [id number] PEP Interpretation HDL Cholesterol Urine Creatinine Urine Total Protein Allied health notes reviewed: nursing
[2018-09-07] MEDS: NEURONTIN PO SCH (22:24)
[2018-09-08] MEDS: APRESOLINE PO SCH ×3 (06:59→22:04)
[2018-09-08 07:01] LABS: Calcium 8.9 mg/dL (8.4-10.2)
--- NOTE | 2018-09-08 08:34 | Progress Note ---
Assessment and Plan ESRD on HD -HD today for clearance and volume removal -Assess need for HD on daily basis -Secondary GN workup was negative -Renal ultrasound on 08/16/18- Chronic medical renal disease. No Hydronephrosis. -Renally dose all medications -Avoid Nephrotoxic agents -Strict I/O's -Mckeon Catheter: None -Patient awaiting placement to [facility] Acute Diastolic Congestive heart failure -Echo- LVEF is 55-60% -S/p IV Lasix -UF with HD -Cardiology on board Hyponatremia: - Likely due to hypervolemia - Fluid restriction of 1 liter per day - will increase sodium bath with HD Anemia of chronic disease due to CKD: -On Epogen for anemia management -Monitor H/H Essential Hypertension: - Continue on current regimen - Adjust medications as needed Diabetes Mellitus type 2 on insulin: -On insulin as per primary team Subjective Date of service: 09/08/18 Principal diagnosis: CHF; CKD; HANSEN; Elevated d-dimer; Essential HTN; Morbid o besity; MARBELLA Interval history: denies acute, issues, wondering when he can be discharged Objective - Vital Signs Vital signs: Vital Signs - 12hr 09/07/18 09/07/18 09/07/18 21:27 23:11 23:12 Temperature 97.6 F Pulse Rate 64 57 L 64 Respiratory 19 Rate Blood Pressure 128/65 125/59 Blood Pressure 124/59 [Left] O2 Sat by Pulse 99 Oximetry 09/07/18 09/08/18 09/08/18 23:13 04:24 05:56 Temperature 97.7 F Pulse Rate 64 78 62 Respiratory 22 24 Rate Blood Pressure 125/59 126/47 Blood Pressure [Left] O2 Sat by Pulse 97 95 Oximetry 09/08/18 06:59 Temperature Pulse Rate 62 Respiratory Rate Blood Pressure 126/47 Blood Pressure [Left] O2 Sat by Pulse Oximetry - General Appearance General appearance: well-developed, well-nourished, obese EENT: ATNC, PERRL Neck: no JVD, no carotid bruit Respiratory: Present: Clear to Ascultation. Absent: Rales, Ronchi Cardiology: regular, S1S2 Gastrointestinal: normoactive bowel sounds, no tenderness, no distended Integumentary: no rash, warm and dry Neurologic: no focal deficit, no asterixis, alert and oriented x3 Musculoskeletal: other (trace pitting edema) Psychiatric: mood/affect appropriate, cooperative - Lab 08/30/18 04:17 09/08/18 05:39 Most recent lab results Calcium 8.9 mg/dL (8.4-10.2) 09/08/18 05:39 Phosphorus 3.90 mg/dL (2.5-4.5) 08/25/18 04:43 56.1 mg/dL (0.1-20.0) H 08/20/18 12:09 132 mmol/L 08/17/18 04:00 79 mg/dL (5-11.8) H 08/17/18 04:00 Medications & Allergies - Medications Allergies/Adverse Reactions: Allergies canagliflozin [From Invokana] Allergy (Verified 08/15/18 17:49) Unknown IV CONTRAST DYE Allergy (Uncoded 08/15/18 17:49) Unknown Home Medications: Home Medications Medication Instructions Recorded Confirmed Last Taken Type Doxylamine Succinate [Unisom] 25 mg PO QHS 08/16/18 08/16/18 Unknown History Niacin [Niacor] 500 mg PO DAILY 08/16/18 08/16/18 Unknown History Triamcinolone Acetonide [Nasacort 10.8 ml NS DAILY 08/16/18 08/16/18 Unknown History SPRAY] Aspirin [Aspirin BABY CHEW TAB] 81 mg PO QDAY tab.chew 09/03/18 Unknown Rx AtorvaSTATin [Lipitor] 40 mg PO QHS #40 tablet 09/03/18 Unknown Rx Carvedilol [Coreg] 6.25 mg PO BID #60 tablet 09/03/18 Unknown Rx Cholecalciferol (Vitamin D3) 5,000 unit PO DAILY #30 capsule 09/03/18 Unknown Rx [Vitamin D3 5,000 UNIT] Epoetin Keon 10,000 Unit [Procrit] 10,000 unit SUB-Q MOWEFR 30 Days 09/03/18 Unknown Rx vial Gabapentin [Neurontin] 300 mg PO QHS #30 capsule 09/03/18 Unknown Rx Insulin Regular, Human [HumuLIN R] 5 units SUB-Q AC 30 Days units 09/03/18 Unknown Rx Lispro Insulin [HumaLOG] 0 unit SUB-Q ACHS units 09/03/18 Unknown Rx Loratadine [Claritin] 10 mg PO DAILY PRN #30 tablet 09/03/18 Unknown Rx Melatonin [Melatonin 3MG TAB] 3 mg PO QHS #30 tablet 09/03/18 Unknown Rx Nitroglycerin [Nitrostat] 0.4 mg SL .Q5MIN PRN tablet 09/03/18 Unknown Rx Omeprazole 20 mg PO DAILY PRN #30 capsule. 09/03/18 Unknown Rx hydrALAZINE [Apresoline TAB] 50 mg PO Q8HR #90 tablet 09/03/18 Unknown Rx oxyCODONE /ACETAMINOPHEN [Percocet 1 tab PO Q6H PRN #8 tablet 09/03/18 Unknown Rx 5/325 mg] Active Medications: Generic Name Dose Route Start Last Admin Trade Name Freq PRN Reason Stop Dose Admin Acetaminophen 650 mg 08/16/18 03:07 09/07/18 14:29 Tylenol PO 650 mg Q4H PRN Administration Pain MILD(1-3)/Fever >100.5/FRAIRE Albuterol 2.5 mg 08/16/18 03:07 Proventil IH Q4HRT PRN Shortness Of Breath Aspirin 81 mg 08/16/18 10:00 09/07/18 10:46 Baby Aspirin PO 81 mg QDAY ARLENE Administration Atorvastatin Calcium 40 mg 08/16/18 22:00 09/07/18 22:24 Lipitor PO 40 mg QHS ARLENE Administration Carvedilol 6.25 mg 08/17/18 12:00 09/07/18 23:13 Coreg PO Not Given BID ARLENE Cholecalciferol 5,000 unit 08/16/18 10:00 09/07/18 09:01 Vitamin D3 PO 5,000 unit DAILY ARLENE Administration Dextrose 50 ml 08/16/18 03:13 D50w (25gm) Syringe IV PRN PRN Hypoglycemia Docusate Sodium 100 mg 08/16/18 10:00 09/07/18 22:25 Colace PO 100 mg BID ARLENE Administration Epoetin Keon 10,000 unit 08/18/18 13:00 09/05/18 12:40 Procrit SUB-Q 10,000 unit MOWEFR ARLENE Administration Gabapentin 300 mg 08/16/18 22:00 09/07/18 22:24 Neurontin PO 300 mg QHS ARLENE Administration Heparin Sodium (Porcine) 5,000 unit 08/16/18 10:00 09/07/18 22:26 Heparin SUB-Q 5,000 unit Q12HR ARLENE Administration Hydralazine HCl 50 mg 05/25/19 14:00 09/08/18 06:59 Apresoline PO Not Given Q8HR ARLENE Sodium Chloride 100 mls @ 999 mls/hr 09/02/18 09:49 Nacl 0.9% IV JANE PRN Hypotension Insulin Human Lispro 0 unit 08/16/18 07:30 09/07/18 22:21 Humalog SUB-Q 3 unit ACHS ARLENE Administration Protocol Insulin Human Regular 5 units 08/16/18 07:30 09/07/18 17:37 Humulin R SUB-Q 5 units AC ARLENE Administration Nitroglycerin 0.4 mg 08/16/18 03:07 Nitrostat SL .Q5MIN PRN Chest Pain Ondansetron HCl 4 mg 08/16/18 03:07 08/16/18 16:39 Zofran IV 4 mg Q8H PRN Administration Nausea And Vomiting Oxycodone/Acetaminophen 1 tab 08/16/18 03:07 08/23/18 22:06 Percocet 5/325 PO 1 tab Q6H PRN Administration Pain, Moderate (4-6) Sodium Chloride 10 ml 08/16/18 10:00 09/07/18 22:24 Sodium Chloride Flush Syringe 10 Ml IV 10 ml BID ARLENE Administration Sodium Chloride 10 ml 08/16/18 03:07 08/16/18 06:17 Sodium Chloride Flush Syringe 10 Ml IV 10 ml PRN PRN Administration LINE FLUSH
[2018-09-08] MEDS: HumaLOG SUB-Q SCH ×5 (08:50→22:08)
[2018-09-08] MEDS: HumuLIN R SUB-Q SCH ×4 (08:51→17:26)
--- NOTE | 2018-09-08 10:27 | Progress Note ---
Assessment and Plan Assessment and plan: Acute heart failure with preserved EF. Continue present management. No ACEI or ARB due to advanced renal failure. Continue hemodialysis per nephrology. Acute on Chronic kidney disease, stage 3: Patient had Perm-catheter placed 08/22 and hemodialysis was initiated. Secondary GN workup was negative. Renal ultrasound on 08/16/18- Chronic medical renal disease. No Hydronephrosis. No ACEI or ARB due to advanced renal failure. Renally dose all medications. Avoid Nephrotoxic agents. Strict I/O's monitoring. Nephrology states will need outpatient hemodialysis set-up [place]. sales strategy manager working on it. Anasarca and scrotal edema. Hyponatremia follow-up BMP. Elevated D-Dimer. VQ scan negative Hypotension. Hold hydralazine for now. DM type 2; ada and ssi HLD: treat with statins Malnutrition mild to moderate: counseling done, consulted [employer] Right toe pressure ulcer, poa, at least stage 3, heel ulcers bilateral also: see admission photos, local wound care done, continue Wound care Morbid obese, bmi 51.3, 342 lbs: counseled on lifestyle modification and weight reduction - Patient Problems (1) Acute heart failure with preserved ejection fraction Current Visit: Yes Status: Acute (2) Acute kidney injury superimposed on CKD Current Visit: Yes Status: Acute (3) Acute on chronic renal failure Current Visit: Yes Status: Acute (4) Anasarca Current Visit: Yes Status: Acute (5) Anemia Current Visit: Yes Status: Acute Qualifiers: Anemia type: unspecified type Qualified Code(s): D64.9 - Anemia, unspecified (6) CKD (chronic kidney disease) Current Visit: Yes Status: Acute Qualifiers: Chronic kidney disease stage: stage 3 (moderate) Qualified Code(s): N18.3 - Chronic kidney disease, stage 3 (moderate) (7) Elevated d-dimer Current Visit: Yes Status: Acute (8) Essential hypertension Current Visit: Yes Status: Chronic (9) Hyperlipemia, mixed Current Visit: Yes Status: Chronic (10) Morbid obesity Current Visit: Yes Status: Chronic (11) MARBELLA (obstructive sleep apnea) Current Visit: Yes Status: Chronic History Interval history: Patient is a 58-year-old male with history of hypertension, diabetes, HLD, CKD stage III who presents to [facility] with c/o bilateral lower extremity swelling and shortness of breath. Pt scrotum is swollen obstructing view of his penis. Currently patient is on 2L supplemental O2 with saturation of 94%. D-dimer slightly elevated at 463.24. CK-MB elevated at 5.0; troponin negative. 2D ECHO conclusions Global LV systolic function is normal, estimated estimated EF is 55- 60%; abnormal LV diastolic dysfunction, mild to moderate concentric LV hypertrophy, trace mr, tr, RVSP calculated at 57 mmHg. He is idagnosed with acute on CKD, initiated on dialysis 08/22/18. Also acute diastolic CHF that has improved with dialysis. After several dialysis sessions, nephrology has determined he needs to be on intermediate manager dialysis. He is medically stable, awaiting arrangement for dialysis. He was planning to move to [place] so case management looking for dialysis center in [place]. No new issues overnight. Hospitalist Physical - Constitutional Vitals: Temp Pulse Resp BP Pulse Ox 97.7 F 62 24 126/47 95 09/08/18 05:56 09/08/18 06:59 09/08/18 05:56 09/08/18 06:59 09/08/18 05:56 General appearance: Present: no acute distress, well-nourished - EENT Eyes: Present: PERRL, EOM intact ENT: hearing intact, clear oral mucosa, dentition normal - Neck Neck: Present: supple, normal ROM - Respiratory Respiratory effort: normal Respiratory: bilateral: CTA - Cardiovascular Rhythm: regular Heart Sounds: Present: S1 & S2. Absent: gallop, rub - Extremities Extremities: no ischemia, No edema, Full ROM - Abdominal General gastrointestinal: soft, non-tender, non-distended, normal bowel sounds - Integumentary Integumentary: Present: clear, warm, dry - Neurologic Neurologic: CNII-XII intact, moves all extremities Results - Labs CBC & Chem 7: 08/30/18 04:17 09/08/18 05:39 Labs: Laboratory Last Values WBC 6.8 K/mm3 (4.5-11.0) 08/30/18 04:17 RBC 3.64 M/mm3 (3.65-5.03) L 08/30/18 04:17 Hgb 9.8 gm/dl (11.8-15.2) L 08/30/18 04:17 Hct 29.6 % (35.5-45.6) L 08/30/18 04:17 MCV 81 fl (84-94) L 08/30/18 04:17 MCH 27 pg (28-32) L 08/30/18 04:17 MCHC 33 % (32-34) 08/30/18 04:17 RDW 16.8 % (13.2-15.2) H 08/30/18 04:17 Plt Count 158 K/mm3 (140-440) 08/30/18 04:17 Lymph % (Auto) 26.6 % (13.4-35.0) 08/17/18 07:30 [place]berry % (Auto) Registered Appraiser 08/25/18 04:43 Eos % (Auto) 6.6 % (0.0-4.3) H 08/17/18 07:30 Baso % (Auto) 1.1 % (0.0-1.8) 08/17/18 07:30 Lymph # 1.3 K/mm3 (1.2-5.4) 08/17/18 07:30 Newberry # 0.7 K/mm3 (0.0-0.8) 08/17/18 07:30 Eos # 0.3 K/mm3 (0.0-0.4) 08/17/18 07:30 Baso # 0.1 K/mm3 (0.0-0.1) 08/17/18 07:30 Add Manual Diff Complete 08/25/18 04:43 Total Counted 100 08/25/18 04:43 Seg Neutrophils % 51.7 % (40.0-70.0) 08/17/18 07:30 Seg Neuts % (Manual) 62.0 % (40.0-70.0) 08/25/18 04:43 0 % 08/25/18 04:43 23.0 % (13.4-35.0) 08/25/18 04:43 Reactive Lymphs % (Man) 0 % 08/25/18 04:43 10.0 % (0.0-7.3) H 08/25/18 04:43 4.0 % (0.0-4.3) 08/25/18 04:43 1.0 % (0.0-1.8) 08/25/18 04:43 0 % 08/25/18 04:43 0 % 08/25/18 04:43 0 % 08/25/18 04:43 0 % 08/25/18 04:43 Nucleated RBC % Not Reportable 08/25/18 04:43 Seg Neutrophils # 2.6 K/mm3 (1.8-7.7) 08/17/18 07:30 Seg Neutrophils # Man 3.3 K/mm3 (1.8-7.7) 08/25/18 04:43 Band Neutrophils # 0.0 K/mm3 08/25/18 04:43 1.2 K/mm3 (1.2-5.4) 08/25/18 04:43 Abs React Lymphs (Man) 0.0 K/mm3 08/25/18 04:43 0.5 K/mm3 (0.0-0.8) 08/25/18 04:43 0.2 K/mm3 (0.0-0.4) 08/25/18 04:43 0.1 K/mm3 (0.0-0.1) 08/25/18 04:43 0.0 K/mm3 08/25/18 04:43 0.0 K/mm3 08/25/18 04:43 0.0 K/mm3 08/25/18 04:43 Blast Cells # 0.0 K/mm3 08/25/18 04:43 WBC Morphology Not Reportable 08/25/18 04:43 Hypersegmented Neuts Not Reportable 08/25/18 04:43 Hyposegmented Neuts Not Reportable 08/25/18 04:43 Hypogranular Neuts Not Reportable 08/25/18 04:43 Not Reportable 08/25/18 04:43 Not Reportable 08/25/18 04:43 Not Reportable 08/25/18 04:43 Not Reportable 08/25/18 04:43 Not Reportable 08/25/18 04:43 Not Reportable 08/25/18 04:43 Consistent w auto 08/25/18 04:43 Not Reportable 08/25/18 04:43 Plt Clumps, EDTA Not Reportable 08/25/18 04:43 Rare 08/25/18 04:43 Not Reportable 08/25/18 04:43 Not Reportable 08/25/18 04:43 Plt Morphology Comment Not Reportable 08/25/18 04:43 RBC Morphology Not Reportable 08/25/18 04:43 Dimorphic RBCs Not Reportable 08/25/18 04:43 Not Reportable 08/25/18 04:43 Not Reportable 08/25/18 04:43 1+ 08/25/18 04:43 1+ 08/25/18 04:43 Not Reportable 08/25/18 04:43 Not Reportable 08/25/18 04:43 Not Reportable 08/25/18 04:43 Not Reportable 08/25/18 04:43 Not Reportable 08/25/18 04:43 Not Reportable 08/25/18 04:43 Not Reportable 08/25/18 04:43 Not Reportable 08/25/18 04:43 Not Reportable 08/25/18 04:43 Not Reportable 08/25/18 04:43 Not Reportable 08/25/18 04:43 Not Reportable 08/25/18 04:43 Not Reportable 08/25/18 04:43 Not Reportable 08/25/18 04:43 1+ 08/25/18 04:43 Acanthocytes (Spur) Not Reportable 08/25/18 04:43 Rouleaux Not Reportable 08/25/18 04:43 Not Reportable 08/25/18 04:43 Not Reportable 08/25/18 04:43 Not Reportable 08/25/18 04:43 Not Reportable 08/25/18 04:43 Hem Pathologist Commnt No 08/25/18 04:43 463.24 ng/mlDDU (0-234) H 08/15/18 21:24 Sodium 128 mmol/L (137-145) L 09/08/18 05:39 Potassium 4.4 mmol/L (3.6-5.0) 09/08/18 05:39 Chloride 90.9 mmol/L (98-107) L 09/08/18 05:39 Carbon Dioxide 23 mmol/L (22-30) 09/08/18 05:39 19 mmol/L 09/08/18 05:39 BUN 57 mg/dL (9-20) H 09/08/18 05:39 4.2 mg/dL (0.8-1.5) H 09/08/18 05:39 Estimated GFR 15 ml/min 09/08/18 05:39 14 % 09/08/18 05:39 Glucose 154 mg/dL (75-100) H 09/08/18 05:39 POC Glucose 147 (70-105) H 09/08/18 07:36 7.4 % (4-6) H 08/16/18 03:37 Lactic Acid 0.70 mmol/L (0.7-2.0) 08/20/18 04:53 Calcium 8.9 mg/dL (8.4-10.2) 09/08/18 05:39 Phosphorus 3.90 mg/dL (2.5-4.5) 08/25/18 04:43 Iron 30 ug/dL (49-181) L 08/16/18 13:52 TIBC 352 mcg/dL (250-450) 08/16/18 13:52 78.2 ng/mL (13.0-400.0) 08/18/18 08:34 0.40 mg/dL (0.1-1.2) 08/15/18 18:54 AST 25 units/L (5-40) 08/15/18 18:54 ALT 15 units/L (7-56) 08/15/18 18:54 74 units/L (35-129) 08/15/18 18:54 340 units/L (55-170) H 08/15/18 21:24 CK-MB (CK-2) 5.0 ng/mL (0.0-4.0) H 08/15/18 21:24 CK-MB (CK-2) Rel Index 1.4 (0-4) 08/15/18 21:24 0.026 ng/mL (0.00-0.029) 08/15/18 21:24 NT-Pro-B Natriuret Pep 877.6 pg/mL (0-900) 08/17/18 11:13 6.1 g/dL (6.1-8.1) 08/17/18 11:13 6.7 g/dL (6.3-8.2) 08/15/18 18:54 2.9 g/dL (3.8-4.8) L 08/17/18 11:13 0.9 % 08/15/18 18:54 0.4 g/dL (0.2-0.3) H 08/17/18 11:13 0.7 g/dL (0.5-0.9) 08/17/18 11:13 0.5 g/dL (0.2-0.5) 08/17/18 11:13 1.1 g/dL (0.8-1.7) 08/17/18 11:13 Abnorm Protein Band 1 see below 08/17/18 11:13 PEP Interpretation see below H 08/17/18 11:13 Triglycerides 140 mg/dL (2-149) 08/16/18 03:37 Cholesterol 147 mg/dL (50-199) 08/16/18 03:37 88 mg/dL (50-130) 08/16/18 03:37 37 mg/dL (40-59) L 08/16/18 03:37 3.97 % 08/16/18 03:37 Straw (Yellow) 08/17/18 04:00 Clear (Clear) 08/17/18 04:00 7.0 (5.0-7.0) 08/17/18 04:00 Ur Specific Faison 1.006 (1.003-1.030) 08/17/18 04:00 100 mg/dl mg/dL (Negative) 08/17/18 04:00 Neg mg/dL (Negative) 08/17/18 04:00 Neg mg/dL (Negative) 08/17/18 04:00 Neg (Negative) 08/17/18 04:00 Neg (Negative) 08/17/18 04:00 Neg (Negative) 08/17/18 04:00 < 2.0 mg/dL (<2.0) 08/17/18 04:00 Ur Leukocyte Esterase Neg (Negative) 08/17/18 04:00 < 1.0 /HPF (0.0-6.0) 08/17/18 04:00 2.0 /HPF (0.0-6.0) 08/17/18 04:00 U Epithel Cells (Auto) 1.0 /HPF (0-13.0) 08/15/18 18:47 1+ /HPF (Negative) 08/17/18 04:00 Few /HPF 08/15/18 18:47 None seen (None Seen) 08/17/18 04:00 Ur Random Creatinine See scanned report 08/17/18 10:40 U Random Total Protein See scanned report 08/17/18 10:40 800 ml 08/20/18 12:09 56.1 mg/dL (0.1-20.0) H 08/20/18 12:09 Height (in) 68.0 inches 08/20/18 12:09 Weight (lb) 348.8 lbs 08/20/18 12:09 6 08/20/18 12:09 Protein/Creatinin Ratio See scanned report 08/17/18 10:40 132 mmol/L 08/17/18 04:00 106 08/17/18 04:00 79 mg/dL (5-11.8) H 08/17/18 04:00 U Abnormal Prot Band 1 See scanned report 08/17/18 10:40 U Abnormal Prot Band 2 See scanned report 08/17/18 10:40 U Abnormal Prot Band 3 See scanned report 08/17/18 10:40 Immunofix Electrophor see below 08/17/18 11:13 JELANI Screen Negative (Negative) 08/17/18 11:13 Double Strand DNA Ab <1 IU/mL (<=4) 08/17/18 11:13 144 mg/dL (82-185) 08/17/18 11:13 23 mg/dL (15-53) 08/17/18 11:13 RPR Nonreactive (Nonreactive) 08/17/18 11:13 Hepatitis A IgM Ab Non-reactive (NonReactive) 08/17/18 11:13 Hep Bs Antigen Non-reactive (Negative) 08/17/18 11:13 Hep B Core IgM Ab Non-reactive (NonReactive) 08/17/18 11:13 Non-reactive (NonReactive) 08/17/18 11:13 HIV 1&2 Antibody Rapid Non react (Non React) 08/17/18 11:13 Non react (Non React) 08/17/18 11:13 Active Medications - Current Medications Current Medications: Generic Name Dose Route Start Last Admin Trade Name Freq PRN Reason Stop Dose Admin Acetaminophen 650 mg 08/16/18 03:07 09/07/18 14:29 Tylenol PO 650 mg Q4H PRN Administration Pain MILD(1-3)/Fever >100.5/FRAIRE Albuterol 2.5 mg 08/16/18 03:07 Proventil IH Q4HRT PRN Shortness Of Breath Aspirin 81 mg 08/16/18 10:00 09/07/18 10:46 Baby Aspirin PO 81 mg QDAY [facility] Administration Atorvastatin Calcium 40 mg 08/16/18 22:00 09/07/18 22:24 Lipitor PO 40 mg QHS [facility] Administration Carvedilol 6.25 mg 08/17/18 12:00 09/07/18 23:13 Coreg PO Not Given BID [facility] Cholecalciferol 5,000 unit 08/16/18 10:00 09/07/18 09:01 Vitamin D3 PO 5,000 unit DAILY [facility] Administration Dextrose 50 ml 08/16/18 03:13 D50w (25gm) Syringe IV PRN PRN Hypoglycemia Docusate Sodium 100 mg 08/16/18 10:00 09/07/18 22:25 Colace PO 100 mg BID [facility] Administration Epoetin Keon 10,000 unit 08/18/18 13:00 09/05/18 12:40 Procrit SUB-Q 10,000 unit MOWEFR [facility] Administration Gabapentin 300 mg 08/16/18 22:00 09/07/18 22:24 Neurontin PO 300 mg QHS [facility] Administration Heparin Sodium (Porcine) 5,000 unit 08/16/18 10:00 09/07/18 22:26 Heparin SUB-Q 5,000 unit Q12HR [facility] Administration Hydralazine HCl 50 mg 08/16/18 14:00 09/08/18 06:59 Apresoline PO Not Given Q8HR [facility] Sodium Chloride 100 mls @ 999 mls/hr 09/02/18 09:49 Nacl 0.9% IV JANE PRN Hypotension Insulin Human Lispro 0 unit 08/16/18 07:30 09/08/18 08:50 Humalog SUB-Q Not Given ACHS [facility] Protocol Insulin Human Regular 5 units 08/16/18 07:30 09/08/18 08:51 Humulin R SUB-Q 5 units AC [facility] Administration Nitroglycerin 0.4 mg 08/16/18 03:07 Nitrostat SL .Q5MIN PRN Chest Pain Ondansetron HCl 4 mg 08/16/18 03:07 08/16/18 16:39 Zofran IV 4 mg Q8H PRN Administration Nausea And Vomiting Oxycodone/Acetaminophen 1 tab 08/16/18 03:07 08/23/18 22:06 Percocet 5/325 PO 1 tab Q6H PRN Administration Pain, Moderate (4-6) Sodium Chloride 10 ml 08/16/18 10:00 09/07/18 22:24 Sodium Chloride Flush Syringe 10 Ml IV 10 ml BID ARLENE Administration Sodium Chloride 10 ml 08/16/18 03:07 08/16/18 06:17 Sodium Chloride Flush Syringe 10 Ml IV 10 ml PRN PRN Administration LINE FLUSH Nutrition/Malnutrition Assess - Dietary Evaluation Nutrition/Malnutrition Findings: Nutrition Notes Start: 08/16/18 09:25 Freq: Status: Active Protocol: Document 08/19/18 14:48 [facility] (Rec: 08/19/18 14:54 [facility] [id number]) Nutrition Notes Initial or Follow up Brief Note Current Diagnosis CKD(stage I-IV),Diabetes Other Pertinent Diagnosis Fluid retention in scrotum and BLE edema, wounds on toe, heel and leg Current Diet Cardiac/consistent CHO Labs/Tests Na 134 BUN 55 Cr 4.4 Pertinent Medications Reviewed [place] Body Weight (kg) 0 Subjective/Other Information Pt reports good appetite; has been consuming 75-100% of meals. Nutrition Intervention Revisit per MD consult or patient Sign Off request:
[2018-09-08] MEDS ORDERED: NACL 0.9 (PRIMING MACHINE ONLY DIALYSIS) MC ONE (11:03)
[2018-09-08] MEDS: PROCRIT SUB-Q SCH ×2 (11:17→13:25)
[2018-09-08] MEDS: HEPARIN SUB-Q SCH ×2 (12:18→22:07)
[2018-09-08] MEDS: COREG PO SCH ×2 (12:18→22:04)
[2018-09-08] MEDS: COLACE PO SCH ×2 (12:18→22:07)
[2018-09-08] MEDS: SODIUM CHLORIDE FLUSH SYRINGE 10 ML IV SCH ×2 (12:18→22:08)
[2018-09-08] MEDS: VITAMIN D3 PO SCH (13:23)
[2018-09-08] MEDS: BABY ASPIRIN PO SCH (13:25)
--- NOTE | 2018-09-08 17:25 | Progress Note ---
Assessment and Plan Patient has dialysis today. Patient presently resting on room air. O2 Sat 95%. No complain of chest pain, shortness of breath or cough. - Patient Problems (1) CHF (congestive heart failure) Current Visit: Yes Status: Acute Qualifiers: Heart failure type: diastolic Heart failure chronicity: acute Qualified Code(s): I50.31 - Acute diastolic (congestive) heart failure Plan to address problem: Management as per cardiology. (2) CKD (chronic kidney disease) Current Visit: Yes Status: Acute Qualifiers: Chronic kidney disease stage: stage 3 (moderate) Qualified Code(s): N18.3 - Chronic kidney disease, stage 3 (moderate) Plan to address problem: Patient is on hemodialysis. Management as per nephrology. (3) HANSEN (dyspnea on exertion) Current Visit: Yes Status: Acute Plan to address problem: Albuterol aerosol treatments q 6 hours prn for shortness of breath. O2 2 litres via nasal canula BIPAP during night time and PRN during day time for shortness of breath. Continue S/C Heparin. (4) Elevated d-dimer Current Visit: Yes Status: Acute Plan to address problem: Venous doppler studies reported negative for DVT. Perfusion lung scan reported low probabily for pulmonary emboli. Continue S/C heparin. (5) Essential hypertension Current Visit: Yes Status: Chronic Plan to address problem: Management as per primary care. (6) Morbid obesity Current Visit: Yes Status: Chronic Plan to address problem: Recommend to loose weight. Exercise and diet. (7) Sleep apnea with use of continuous positive airway pressure (CPAP) Current Visit: Yes Status: Acute Plan to address problem: Continue BIPAP as using at home. Subjective Date of service: 09/08/18 Principal diagnosis: CHF; CKD; HANSEN; Elevated d-dimer; Essential HTN; Morbid obesity; MARBELLA Interval history: Patient has dialysis today. Patient presently resting on room air. O2 Sat 95%. No complain of chest pain, shortness of breath or cough. Objective Vital Signs - 12hr 09/08/18 09/08/18 09/08/18 05:56 06:59 09:20 Temperature 97.7 F 98.0 F Pulse Rate 62 62 56 L Respiratory 24 18 Rate Blood Pressure 126/47 126/47 145/74 O2 Sat by Pulse 95 Oximetry 09/08/18 09/08/18 09/08/18 09:30 09:45 10:00 Temperature Pulse Rate 60 61 60 Respiratory Rate Blood Pressure 139/79 138/55 129/69 O2 Sat by Pulse Oximetry 09/08/18 09/08/18 09/08/18 10:15 10:30 10:45 Temperature Pulse Rate 61 61 76 Respiratory Rate Blood Pressure 134/66 126/69 145/60 O2 Sat by Pulse Oximetry 09/08/18 09/08/18 09/08/18 11:00 11:15 11:30 Temperature Pulse Rate 63 73 61 Respiratory Rate Blood Pressure 118/56 126/71 136/66 O2 Sat by Pulse Oximetry 09/08/18 09/08/18 09/08/18 11:45 12:00 12:20 Temperature Pulse Rate 69 60 60 Respiratory Rate Blood Pressure 127/66 139/73 131/69 O2 Sat by Pulse Oximetry 09/08/18 09/08/18 12:30 13:24 Temperature 98.2 F Pulse Rate 58 L 58 L Respiratory 18 Rate Blood Pressure 141/67 121/67 O2 Sat by Pulse Oximetry Constitutional: no acute distress, alert, other (Morbidly Obese middle aged CM) Eyes: non-icteric ENT: oropharynx moist, other (mallampati 4) Neck: supple, no JVD, other (large neck circumference) Effort: mildly labored Ascultation: Bilateral: diminished breath sounds, rhonchi (scant in bases) Percussion: Bilateral: not dull Cardiovascular: regular rate and rhythm Gastrointestinal: normoactive bowel sounds, soft, non-tender, other (protuberant) Integumentary: cellulitis, other (Cellulitis and wounds in both lower legs.) Extremities: no cyanosis, pink and warm, pulses normal, edema (trace to 1+) Neurologic: normal mental status, non-focal exam, pupils equal and round, CN II- XII normal Psychiatric: mood appropriate, affect normal CBC and BMP: 08/30/18 04:17 09/08/18 05:39 ABG, PT/INR, D-dimer: PT/INR, D-dimer 463.24 ng/mlDDU (0-234) H 08/15/18 21:24 Abnormal lab findings: Abnormal Labs 08/15/18 08/15/18 08/15/18 18:02 18:54 18:54 WBC RBC 3.61 L Hgb 9.8 L Hct 30.1 L MCV MCH 27 L RDW 16.8 H Plt Count [place] % (Auto) 10.7 H Eos % (Auto) 5.9 H Seg Neuts % (Manual) Lymphocytes % (Manual) Monocytes % (Manual) Eosinophils % (Manual) Basophils % (Manual) Seg Neutrophils # Sadi D-Dimer Sodium Chloride 107.7 H BUN 25 H Creatinine 2.5 H Glucose 159 H POC Glucose 124 H Hemoglobin A1c Calcium Phosphorus Iron Total Creatine Kinase CK-MB (CK-2) Albumin 3.2 L Cjpqu-9-Emvkmpbeb PEP Interpretation HDL Cholesterol Urine Creatinine Urine Total Protein 08/15/18 08/15/18 08/16/18 21:24 21:24 03:37 WBC RBC Hgb Hct MCV MCH RDW Plt Count [place] % (Auto) Eos % (Auto) Seg Neuts % (Manual) Lymphocytes % (Manual) Monocytes % (Manual) Eosinophils % (Manual) Basophils % (Manual) Seg Neutrophils # Sadi D-Dimer 463.24 H Sodium Chloride BUN Creatinine Glucose POC Glucose Hemoglobin A1c 7.4 H Calcium Phosphorus Iron Total Creatine Kinase 340 H CK-MB (CK-2) 5.0 H Albumin Qkkxl-4-Romdfcqbq PEP Interpretation HDL Cholesterol Urine Creatinine Urine Total Protein 08/16/18 08/16/18 08/16/18 03:37 07:54 12:01 WBC RBC Hgb Hct MCV MCH RDW Plt Count [place] % (Auto) Eos % (Auto) Seg Neuts % (Manual) Lymphocytes % (Manual) Monocytes % (Manual) Eosinophils % (Manual) Basophils % (Manual) Seg Neutrophils # Sadi D-Dimer Sodium Chloride BUN Creatinine Glucose POC Glucose 113 H 179 H Hemoglobin A1c Calcium Phosphorus Iron Total Creatine Kinase CK-MB (CK-2) Albumin Kkffa-4-Lbsbkysur PEP Interpretation HDL Cholesterol 37 L Urine Creatinine Urine Total Protein 08/16/18 08/16/18 08/16/18 13:52 17:44 21:21 WBC RBC Hgb Hct MCV MCH RDW Plt Count [place] % (Auto) Eos % (Auto) Seg Neuts % (Manual) Lymphocytes % (Manual) Monocytes % (Manual) Eosinophils % (Manual) Basophils % (Manual) Seg Neutrophils # Sadi D-Dimer Sodium Chloride BUN Creatinine Glucose POC Glucose 221 H 165 H Hemoglobin A1c Calcium Phosphorus Iron 30 L Total Creatine Kinase CK-MB (CK-2) Albumin Olonq-6-Xzjrdnbxv PEP Interpretation HDL Cholesterol Urine Creatinine Urine Total Protein 08/17/18 08/17/18 08/17/18 04:00 07:30 07:30 WBC RBC Hgb 10.3 L Hct 31.5 L MCV 82 L MCH 27 L RDW 16.8 H Plt Count [place] % (Auto) 14.0 H Eos % (Auto) 6.6 H Seg Neuts % (Manual) Lymphocytes % (Manual) Monocytes % (Manual) Eosinophils % (Manual) Basophils % (Manual) Seg Neutrophils # Man D-Dimer Sodium Chloride BUN 32 H Creatinine 2.9 H Glucose 180 H POC Glucose Hemoglobin A1c Calcium Phosphorus Iron Total Creatine Kinase CK-MB (CK-2) Albumin Ktmmg-1-Xosnznzxd PEP Interpretation HDL Cholesterol Urine Creatinine 22.4 H Urine Total Protein 79 H 08/17/18 08/17/18 08/17/18 07:34 11:13 12:17 WBC RBC Hgb Hct MCV MCH RDW Plt Count [place] % (Auto) Eos % (Auto) Seg Neuts % (Manual) Lymphocytes % (Manual) Monocytes % (Manual) Eosinophils % (Manual) Basophils % (Manual) Seg Neutrophils # Man D-Dimer Sodium Chloride BUN Creatinine Glucose POC Glucose 169 H 207 H Hemoglobin A1c Calcium Phosphorus Iron Total Creatine Kinase CK-MB (CK-2) Albumin 2.9 L Uctxy-3-Pdzkczlxt 0.4 H PEP Interpretation see below H HDL Cholesterol Urine Creatinine Urine Total Protein 08/17/18 08/17/18 08/18/18 16:36 21:17 07:05 WBC RBC Hgb Hct MCV MCH RDW Plt Count [place] % (Auto) Eos % (Auto) Seg Neuts % (Manual) Lymphocytes % (Manual) Monocytes % (Manual) Eosinophils % (Manual) Basophils % (Manual) Seg Neutrophils # Man D-Dimer Sodium 134 L Chloride 95.9 L BUN 43 H Creatinine 3.8 H Glucose 150 H POC Glucose 184 H 209 H Hemoglobin A1c Calcium Phosphorus Iron Total Creatine Kinase CK-MB (CK-2) Albumin Basbr-3-Mebqxpjci PEP Interpretation HDL Cholesterol Urine Creatinine Urine Total Protein 08/18/18 08/18/18 08/18/18 07:53 08:34 11:53 WBC RBC Hgb 10.8 L Hct 33.8 L MCV MCH 27 L RDW 16.3 H Plt Count [place] % (Auto) Eos % (Auto) Seg Neuts % (Manual) Lymphocytes % (Manual) Monocytes % (Manual) Eosinophils % (Manual) Basophils % (Manual) Seg Neutrophils # Sadi D-Dimer Sodium Chloride BUN Creatinine Glucose POC Glucose 139 H 191 H Hemoglobin A1c Calcium Phosphorus Iron Total Creatine Kinase CK-MB (CK-2) Albumin Lqpgu-2-Biqpwbnpl PEP Interpretation HDL Cholesterol Urine Creatinine Urine Total Protein 08/18/18 08/18/18 08/19/18 15:54 20:49 05:28 WBC RBC Hgb 9.7 L Hct 30.1 L MCV 82 L MCH 26 L RDW 16.6 H Plt Count 136 L [place] % (Auto) Eos % (Auto) Seg Neuts % (Manual) Lymphocytes % (Manual) Monocytes % (Manual) Eosinophils % (Manual) Basophils % (Manual) Seg Neutrophils # Sadi D-Dimer Sodium Chloride BUN Creatinine Glucose POC Glucose 150 H 138 H Hemoglobin A1c Calcium Phosphorus Iron Total Creatine Kinase CK-MB (CK-2) Albumin Smmnn-5-Ycllajvhu PEP Interpretation HDL Cholesterol Urine Creatinine Urine Total Protein 08/19/18 08/19/18 08/19/18 05:28 07:43 11:57 WBC RBC Hgb Hct MCV MCH RDW Plt Count [place] % (Auto) Eos % (Auto) Seg Neuts % (Manual) Lymphocytes % (Manual) Monocytes % (Manual) Eosinophils % (Manual) Basophils % (Manual) Seg Neutrophils # Sadi D-Dimer Sodium 134 L Chloride 96.2 L BUN 55 H Creatinine 4.4 H Glucose 118 H POC Glucose 162 H 280 H Hemoglobin A1c Calcium Phosphorus Iron Total Creatine Kinase CK-MB (CK-2) Albumin Dyrfs-2-Zmybsidml PEP Interpretation HDL Cholesterol Urine Creatinine Urine Total Protein 08/19/18 08/19/18 08/20/18 15:41 21:44 04:53 WBC 3.5 L RBC 3.58 L Hgb 9.4 L Hct 29.5 L MCV 83 L MCH 26 L RDW 16.4 H Plt Count 121 L [place] % (Auto) Eos % (Auto) Seg Neuts % (Manual) Lymphocytes % (Manual) Monocytes % (Manual) 16.0 H Eosinophils % (Manual) Basophils % (Manual) 3.0 H Seg Neutrophils # Man 1.6 L D-Dimer Sodium Chloride BUN Creatinine Glucose POC Glucose 167 H 234 H Hemoglobin A1c Calcium Phosphorus Iron Total Creatine Kinase CK-MB (CK-2) Albumin Zptik-4-Pjqmbcoev PEP Interpretation HDL Cholesterol Urine Creatinine Urine Total Protein 08/20/18 08/20/18 08/20/18 04:53 08:13 12:09 WBC RBC Hgb Hct MCV MCH RDW Plt Count [place] % (Auto) Eos % (Auto) Seg Neuts % (Manual) Lymphocytes % (Manual) Monocytes % (Manual) Eosinophils % (Manual) Basophils % (Manual) Seg Neutrophils # Man D-Dimer Sodium 136 L Chloride BUN 57 H Creatinine 3.3 H Glucose 136 H POC Glucose 124 H Hemoglobin A1c Calcium Phosphorus 5.50 H Iron Total Creatine Kinase CK-MB (CK-2) Albumin Wswqw-8-Jdctbvxzj PEP Interpretation HDL Cholesterol Urine Creatinine 56.1 H Urine Total Protein 08/20/18 08/20/18 08/20/18 12:49 18:26 20:53 WBC RBC Hgb Hct MCV MCH RDW Plt Count [place] % (Auto) Eos % (Auto) Seg Neuts % (Manual) Lymphocytes % (Manual) Monocytes % (Manual) Eosinophils % (Manual) Basophils % (Manual) Seg Neutrophils # Man D-Dimer Sodium Chloride BUN Creatinine Glucose POC Glucose 145 H 175 H 184 H Hemoglobin A1c Calcium Phosphorus Iron Total Creatine Kinase CK-MB (CK-2) Albumin Saqua-1-Kdmoukpqb PEP Interpretation HDL Cholesterol Urine Creatinine Urine Total Protein 08/21/18 08/21/18 08/21/18 04:28 04:28 08:58 WBC 3.8 L RBC 3.42 L Hgb 9.2 L Hct 28.4 L MCV 83 L MCH 27 L RDW 16.4 H Plt Count 126 L [place] % (Auto) Eos % (Auto) Seg Neuts % (Manual) Lymphocytes % (Manual) Monocytes % (Manual) 15.0 H Eosinophils % (Manual) Basophils % (Manual) Seg Neutrophils # Man D-Dimer Sodium 134 L Chloride 96.5 L BUN 59 H Creatinine 3.4 H Glucose 190 H POC Glucose 159 H Hemoglobin A1c Calcium Phosphorus 5.10 H Iron Total Creatine Kinase CK-MB (CK-2) Albumin Otgfw-8-Ollejqqaw PEP Interpretation HDL Cholesterol Urine Creatinine Urine Total Protein 08/21/18 08/21/18 08/21/18 12:25 17:10 21:43 WBC RBC Hgb Hct MCV MCH RDW Plt Count [place] % (Auto) Eos % (Auto) Seg Neuts % (Manual) Lymphocytes % (Manual) Monocytes % (Manual) Eosinophils % (Manual) Basophils % (Manual) Seg Neutrophils # Man D-Dimer Sodium Chloride BUN Creatinine Glucose POC Glucose 222 H 152 H 150 H Hemoglobin A1c Calcium Phosphorus Iron Total Creatine Kinase CK-MB (CK-2) Albumin Thiyq-3-Fzqxdwtat PEP Interpretation HDL Cholesterol Urine Creatinine Urine Total Protein 08/22/18 08/22/18 08/22/18 04:50 04:51 08:08 WBC 3.7 L RBC 3.37 L Hgb 9.0 L Hct 27.8 L MCV 83 L MCH 27 L RDW 16.9 H Plt Count 124 L [place] % (Auto) Eos % (Auto) Seg Neuts % (Manual) Lymphocytes % (Manual) Monocytes % (Manual) 13.0 H Eosinophils % (Manual) 11.0 H Basophils % (Manual) Seg Neutrophils # Man 1.6 L D-Dimer Sodium 135 L Chloride 97.4 L BUN 64 H Creatinine 3.5 H Glucose 114 H POC Glucose 117 H Hemoglobin A1c Calcium Phosphorus 4.90 H Iron Total Creatine Kinase CK-MB (CK-2) Albumin Capjs-5-Bclolcdkr PEP Interpretation HDL Cholesterol Urine Creatinine Urine Total Protein 08/22/18 08/22/18 08/23/18 14:48 21:36 05:09 WBC 4.3 L RBC 3.60 L Hgb 9.6 L Hct 29.6 L MCV 82 L MCH 27 L RDW 16.6 H Plt Count 134 L [place] % (Auto) Eos % (Auto) Seg Neuts % (Manual) 38.0 L Lymphocytes % (Manual) 51.0 H Monocytes % (Manual) 8.0 H Eosinophils % (Manual) Basophils % (Manual) Seg Neutrophils # Man 1.6 L D-Dimer Sodium Chloride BUN Creatinine Glucose POC Glucose 211 H 268 H Hemoglobin A1c Calcium Phosphorus Iron Total Creatine Kinase CK-MB (CK-2) Albumin Rffep-6-Vypeomipc PEP Interpretation HDL Cholesterol Urine Creatinine Urine Total Protein 08/23/18 08/23/18 08/23/18 05:09 07:44 14:02 WBC RBC Hgb Hct MCV MCH RDW Plt Count [place] % (Auto) Eos % (Auto) Seg Neuts % (Manual) Lymphocytes % (Manual) Monocytes % (Manual) Eosinophils % (Manual) Basophils % (Manual) Seg Neutrophils # Man D-Dimer Sodium Chloride BUN 45 H Creatinine 2.6 H Glucose 174 H POC Glucose 240 H 161 H Hemoglobin A1c Calcium Phosphorus Iron Total Creatine Kinase CK-MB (CK-2) Albumin Csvdh-5-Nldofdkld PEP Interpretation HDL Cholesterol Urine Creatinine Urine Total Protein 08/23/18 08/23/18 08/24/18 17:33 20:32 05:09 WBC RBC Hgb Hct MCV MCH RDW Plt Count [place] % (Auto) Eos % (Auto) Seg Neuts % (Manual) Lymphocytes % (Manual) Monocytes % (Manual) Eosinophils % (Manual) Basophils % (Manual) Seg Neutrophils # Man D-Dimer Sodium 135 L Chloride 97.4 L BUN 38 H Creatinine 2.3 H Glucose 183 H POC Glucose 217 H 208 H Hemoglobin A1c Calcium Phosphorus Iron Total Creatine Kinase CK-MB (CK-2) Albumin Novpy-7-Slsalvged PEP Interpretation HDL Cholesterol Urine Creatinine Urine Total Protein 08/24/18 08/24/18 08/24/18 07:49 11:32 16:44 WBC RBC Hgb Hct MCV MCH RDW Plt Count [place] % (Auto) Eos % (Auto) Seg Neuts % (Manual) Lymphocytes % (Manual) Monocytes % (Manual) Eosinophils % (Manual) Basophils % (Manual) Seg Neutrophils # Man D-Dimer Sodium Chloride BUN Creatinine Glucose POC Glucose 171 H 271 H 168 H Hemoglobin A1c Calcium Phosphorus Iron Total Creatine Kinase CK-MB (CK-2) Albumin Jmnjj-3-Cowcrosvo PEP Interpretation HDL Cholesterol Urine Creatinine Urine Total Protein 08/24/18 08/25/18 08/25/18 20:54 04:43 04:43 WBC RBC 3.41 L Hgb 9.1 L Hct 28.0 L MCV 82 L MCH 27 L RDW 17.0 H Plt Count 133 L [place] % (Auto) Eos % (Auto) Seg Neuts % (Manual) Lymphocytes % (Manual) Monocytes % (Manual) 10.0 H Eosinophils % (Manual) Basophils % (Manual) Seg Neutrophils # Man D-Dimer Sodium 136 L Chloride BUN 44 H Creatinine 2.6 H Glucose 193 H POC Glucose 214 H Hemoglobin A1c Calcium Phosphorus Iron Total Creatine Kinase CK-MB (CK-2) Albumin Cjchv-4-Pceftxjqd PEP Interpretation HDL Cholesterol Urine Creatinine Urine Total Protein 08/25/18 08/25/18 08/25/18 08:04 13:43 16:39 WBC RBC Hgb Hct MCV MCH RDW Plt Count [place] % (Auto) Eos % (Auto) Seg Neuts % (Manual) Lymphocytes % (Manual) Monocytes % (Manual) Eosinophils % (Manual) Basophils % (Manual) Seg Neutrophils # Man D-Dimer Sodium Chloride BUN Creatinine Glucose POC Glucose 167 H 193 H 249 H Hemoglobin A1c Calcium Phosphorus Iron Total Creatine Kinase CK-MB (CK-2) Albumin Pzjfb-7-Pfkllmfeo PEP Interpretation HDL Cholesterol Urine Creatinine Urine Total Protein 08/25/18 08/26/18 08/26/18 21:15 04:56 07:21 WBC RBC Hgb Hct MCV MCH RDW Plt Count [place] % (Auto) Eos % (Auto) Seg Neuts % (Manual) Lymphocytes % (Manual) Monocytes % (Manual) Eosinophils % (Manual) Basophils % (Manual) Seg Neutrophils # Sadi D-Dimer Sodium 133 L Chloride 96.3 L BUN 32 H Creatinine 2.1 H Glucose 186 H POC Glucose 176 H 183 H Hemoglobin A1c Calcium 8.3 L Phosphorus Iron Total Creatine Kinase CK-MB (CK-2) Albumin Ecdqw-5-Rjjlxhsvd PEP Interpretation HDL Cholesterol Urine Creatinine Urine Total Protein 08/26/18 08/26/18 08/26/18 14:34 16:34 21:07 WBC RBC Hgb Hct MCV MCH RDW Plt Count [place] % (Auto) Eos % (Auto) Seg Neuts % (Manual) Lymphocytes % (Manual) Monocytes % (Manual) Eosinophils % (Manual) Basophils % (Manual) Seg Neutrophils # Sadi D-Dimer Sodium Chloride BUN Creatinine Glucose POC Glucose 165 H 206 H 185 H Hemoglobin A1c Calcium Phosphorus Iron Total Creatine Kinase CK-MB (CK-2) Albumin Nagdj-0-Oabzlnekg PEP Interpretation HDL Cholesterol Urine Creatinine Urine Total Protein 08/27/18 08/27/18 08/27/18 07:34 08:23 16:31 WBC RBC Hgb Hct MCV MCH RDW Plt Count [place] % (Auto) Eos % (Auto) Seg Neuts % (Manual) Lymphocytes % (Manual) Monocytes % (Manual) Eosinophils % (Manual) Basophils % (Manual) Seg Neutrophils # Man D-Dimer Sodium 135 L Chloride 97.3 L BUN 28 H Creatinine 2.4 H Glucose 130 H POC Glucose 136 H 229 H Hemoglobin A1c Calcium 8.0 L Phosphorus Iron Total Creatine Kinase CK-MB (CK-2) Albumin Kmxxj-2-Fgqxwlgkf PEP Interpretation HDL Cholesterol Urine Creatinine Urine Total Protein 08/27/18 08/28/18 08/28/18 21:32 04:40 07:48 WBC RBC Hgb Hct MCV MCH RDW Plt Count [place] % (Auto) Eos % (Auto) Seg Neuts % (Manual) Lymphocytes % (Manual) Monocytes % (Manual) Eosinophils % (Manual) Basophils % (Manual) Seg Neutrophils # Sadi D-Dimer Sodium 135 L Chloride 97.9 L BUN 25 H Creatinine 2.2 H Glucose 118 H POC Glucose 142 H 120 H Hemoglobin A1c Calcium Phosphorus Iron Total Creatine Kinase CK-MB (CK-2) Albumin Qqdbq-6-Dsbfqdyxd PEP Interpretation HDL Cholesterol Urine Creatinine Urine Total Protein 08/28/18 08/28/18 08/29/18 17:11 20:52 04:29 WBC RBC Hgb Hct MCV MCH RDW Plt Count [place] % (Auto) Eos % (Auto) Seg Neuts % (Manual) Lymphocytes % (Manual) Monocytes % (Manual) Eosinophils % (Manual) Basophils % (Manual) Seg Neutrophils # Sadi D-Dimer Sodium 134 L Chloride 93.3 L BUN 36 H Creatinine 2.9 H Glucose 187 H POC Glucose 209 H 188 H Hemoglobin A1c Calcium Phosphorus Iron Total Creatine Kinase CK-MB (CK-2) Albumin Ebkbj-6-Svytypiuc PEP Interpretation HDL Cholesterol Urine Creatinine Urine Total Protein 08/29/18 08/29/18 08/29/18 08:21 16:54 22:22 WBC RBC Hgb Hct MCV MCH RDW Plt Count [place] % (Auto) Eos % (Auto) Seg Neuts % (Manual) Lymphocytes % (Manual) Monocytes % (Manual) Eosinophils % (Manual) Basophils % (Manual) Seg Neutrophils # Sadi D-Dimer Sodium Chloride BUN Creatinine Glucose POC Glucose 144 H 277 H 240 H Hemoglobin A1c Calcium Phosphorus Iron Total Creatine Kinase CK-MB (CK-2) Albumin Javos-2-Eahsnizok PEP Interpretation HDL Cholesterol Urine Creatinine Urine Total Protein 08/30/18 08/30/18 08/30/18 04:17 04:17 07:56 WBC RBC 3.64 L Hgb 9.8 L Hct 29.6 L MCV 81 L MCH 27 L RDW 16.8 H Plt Count [place] % (Auto) Eos % (Auto) Seg Neuts % (Manual) Lymphocytes % (Manual) Monocytes % (Manual) Eosinophils % (Manual) Basophils % (Manual) Seg Neutrophils # Sadi D-Dimer Sodium 133 L Chloride 96.4 L BUN 33 H Creatinine 2.9 H Glucose 142 H POC Glucose 134 H Hemoglobin A1c Calcium Phosphorus Iron Total Creatine Kinase CK-MB (CK-2) Albumin Ojolq-4-[place] PEP Interpretation HDL Cholesterol Urine Creatinine Urine Total Protein 08/30/18 08/30/18 08/31/18 17:11 20:58 07:57 WBC RBC Hgb Hct MCV MCH RDW Plt Count [place] % (Auto) Eos % (Auto) Seg Neuts % (Manual) Lymphocytes % (Manual) Monocytes % (Manual) Eosinophils % (Manual) Basophils % (Manual) Seg Neutrophils # Sadi D-Dimer Sodium Chloride BUN Creatinine Glucose POC Glucose 223 H 238 H 143 H Hemoglobin A1c Calcium Phosphorus Iron Total Creatine Kinase CK-MB (CK-2) Albumin Jvrtk-5-Avqqykxst PEP Interpretation HDL Cholesterol Urine Creatinine Urine Total Protein 08/31/18 08/31/18 08/31/18 09:06 11:13 16:45 WBC RBC Hgb Hct MCV MCH RDW Plt Count [place] % (Auto) Eos % (Auto) Seg Neuts % (Manual) Lymphocytes % (Manual) Monocytes % (Manual) Eosinophils % (Manual) Basophils % (Manual) Seg Neutrophils # Sadi D-Dimer Sodium 130 L Chloride 87.5 L BUN 47 H Creatinine 3.5 H Glucose 214 H POC Glucose 223 H 320 H Hemoglobin A1c Calcium Phosphorus Iron Total Creatine Kinase CK-MB (CK-2) Albumin Nhthl-5-Qfoiphvlk PEP Interpretation HDL Cholesterol Urine Creatinine Urine Total Protein 08/31/18 09/01/18 09/01/18 21:48 05:52 07:25 WBC RBC Hgb Hct MCV MCH RDW Plt Count [place] % (Auto) Eos % (Auto) Seg Neuts % (Manual) Lymphocytes % (Manual) Monocytes % (Manual) Eosinophils % (Manual) Basophils % (Manual) Seg Neutrophils # Man D-Dimer Sodium 129 L Chloride 91.1 L BUN 57 H Creatinine 3.5 H Glucose 138 H POC Glucose 197 H 133 H Hemoglobin A1c Calcium Phosphorus Iron Total Creatine Kinase CK-MB (CK-2) Albumin Ujjmy-2-Vkiiggnqg PEP Interpretation HDL Cholesterol Urine Creatinine Urine Total Protein 09/01/18 09/01/18 09/01/18 14:47 16:56 21:24 WBC RBC Hgb Hct MCV MCH RDW Plt Count [place] % (Auto) Eos % (Auto) Seg Neuts % (Manual) Lymphocytes % (Manual) Monocytes % (Manual) Eosinophils % (Manual) Basophils % (Manual) Seg Neutrophils # Man D-Dimer Sodium Chloride BUN Creatinine Glucose POC Glucose 230 H 264 H 233 H Hemoglobin A1c Calcium Phosphorus Iron Total Creatine Kinase CK-MB (CK-2) Albumin Ctjkq-3-Rczmsxbce PEP Interpretation HDL Cholesterol Urine Creatinine Urine Total Protein 09/02/18 09/02/18 09/02/18 06:46 07:55 11:47 WBC RBC Hgb Hct MCV MCH RDW Plt Count [place] % (Auto) Eos % (Auto) Seg Neuts % (Manual) Lymphocytes % (Manual) Monocytes % (Manual) Eosinophils % (Manual) Basophils % (Manual) Seg Neutrophils # Sadi D-Dimer Sodium 129 L Chloride 92.4 L BUN 42 H Creatinine 3.5 H Glucose 138 H POC Glucose 140 H 186 H Hemoglobin A1c Calcium Phosphorus Iron Total Creatine Kinase CK-MB (CK-2) Albumin Uvzha-9-Rmuquldzs PEP Interpretation HDL Cholesterol Urine Creatinine Urine Total Protein 09/02/18 09/03/18 09/03/18 21:44 07:55 17:07 WBC RBC Hgb Hct MCV MCH RDW Plt Count [place] % (Auto) Eos % (Auto) Seg Neuts % (Manual) Lymphocytes % (Manual) Monocytes % (Manual) Eosinophils % (Manual) Basophils % (Manual) Seg Neutrophils # Sadi D-Dimer Sodium Chloride BUN Creatinine Glucose POC Glucose 224 H 127 H 249 H Hemoglobin A1c Calcium Phosphorus Iron Total Creatine Kinase CK-MB (CK-2) Albumin Rpolk-2-Gbixynver PEP Interpretation HDL Cholesterol Urine Creatinine Urine Total Protein 09/03/18 09/04/18 09/04/18 21:23 07:52 11:13 WBC RBC Hgb Hct MCV MCH RDW Plt Count [place] % (Auto) Eos % (Auto) Seg Neuts % (Manual) Lymphocytes % (Manual) Monocytes % (Manual) Eosinophils % (Manual) Basophils % (Manual) Seg Neutrophils # Sadi D-Dimer Sodium Chloride BUN Creatinine Glucose POC Glucose 212 H 118 H 186 H Hemoglobin A1c Calcium Phosphorus Iron Total Creatine Kinase CK-MB (CK-2) Albumin Gtstz-2-Vdxbbptfy PEP Interpretation HDL Cholesterol Urine Creatinine Urine Total Protein 09/04/18 09/04/18 09/05/18 16:43 21:32 05:18 WBC RBC Hgb Hct MCV MCH RDW Plt Count [place] % (Auto) Eos % (Auto) Seg Neuts % (Manual) Lymphocytes % (Manual) Monocytes % (Manual) Eosinophils % (Manual) Basophils % (Manual) Seg Neutrophils # Man D-Dimer Sodium 130 L Chloride 91.5 L BUN 47 H Creatinine 4.7 H Glucose 199 H POC Glucose 155 H 235 H Hemoglobin A1c Calcium Phosphorus Iron Total Creatine Kinase CK-MB (CK-2) Albumin Rancv-8-Zhmjpukhu PEP Interpretation HDL Cholesterol Urine Creatinine Urine Total Protein 09/05/18 09/05/18 09/05/18 07:39 16:40 21:24 WBC RBC Hgb Hct MCV MCH RDW Plt Count [place] % (Auto) Eos % (Auto) Seg Neuts % (Manual) Lymphocytes % (Manual) Monocytes % (Manual) Eosinophils % (Manual) Basophils % (Manual) Seg Neutrophils # Man D-Dimer Sodium Chloride BUN Creatinine Glucose POC Glucose 181 H 242 H 287 H Hemoglobin A1c Calcium Phosphorus Iron Total Creatine Kinase CK-MB (CK-2) Albumin [id number] PEP Interpretation HDL Cholesterol Urine Creatinine Urine Total Protein 09/06/18 09/06/18 09/06/18 04:15 08:46 12:32 WBC RBC Hgb Hct MCV MCH RDW Plt Count [place] % (Auto) Eos % (Auto) Seg Neuts % (Manual) Lymphocytes % (Manual) Monocytes % (Manual) Eosinophils % (Manual) Basophils % (Manual) Seg Neutrophils # Man D-Dimer Sodium 132 L Chloride 91.6 L BUN 37 H Creatinine 4.0 H Glucose 191 H POC Glucose 146 H 184 H Hemoglobin A1c Calcium Phosphorus Iron Total Creatine Kinase CK-MB (CK-2) Albumin [id number] PEP Interpretation HDL Cholesterol Urine Creatinine Urine Total Protein 09/06/18 09/06/18 09/07/18 17:18 21:39 04:58 WBC RBC Hgb Hct MCV MCH RDW Plt Count [place] % (Auto) Eos % (Auto) Seg Neuts % (Manual) Lymphocytes % (Manual) Monocytes % (Manual) Eosinophils % (Manual) Basophils % (Manual) Seg Neutrophils # Man D-Dimer Sodium 127 L Chloride 89.2 L BUN 50 H Creatinine 4.5 H Glucose 197 H POC Glucose 169 H 209 H Hemoglobin A1c Calcium Phosphorus Iron Total Creatine Kinase CK-MB (CK-2) Albumin Getji-5-Akhcjreum PEP Interpretation HDL Cholesterol Urine Creatinine Urine Total Protein 09/07/18 09/07/18 09/07/18 07:34 11:24 16:05 WBC RBC Hgb Hct MCV MCH RDW Plt Count Donley % (Auto) Eos % (Auto) Seg Neuts % (Manual) Lymphocytes % (Manual) Monocytes % (Manual) Eosinophils % (Manual) Basophils % (Manual) Seg Neutrophils # Man D-Dimer Sodium 126 L Chloride BUN Creatinine Glucose POC Glucose 168 H 239 H Hemoglobin A1c Calcium Phosphorus Iron Total Creatine Kinase CK-MB (CK-2) Albumin Kzmqn-6-Fchlottce PEP Interpretation HDL Cholesterol Urine Creatinine Urine Total Protein 09/07/18 09/07/18 09/08/18 16:24 21:42 05:39 WBC RBC Hgb Hct MCV MCH RDW Plt Count [place]ley % (Auto) Eos % (Auto) Seg Neuts % (Manual) Lymphocytes % (Manual) Monocytes % (Manual) Eosinophils % (Manual) Basophils % (Manual) Seg Neutrophils # Man D-Dimer Sodium 128 L Chloride 90.9 L BUN 57 H Creatinine 4.2 H Glucose 154 H POC Glucose 181 H 218 H Hemoglobin A1c Calcium Phosphorus Iron Total Creatine Kinase CK-MB (CK-2) Albumin Gynvr-5-Kcnavykoy PEP Interpretation HDL Cholesterol Urine Creatinine Urine Total Protein 09/08/18 09/08/18 09/08/18 07:36 12:54 16:32 WBC RBC Hgb Hct MCV MCH RDW Plt Count [place] % (Auto) Eos % (Auto) Seg Neuts % (Manual) Lymphocytes % (Manual) Monocytes % (Manual) Eosinophils % (Manual) Basophils % (Manual) Seg Neutrophils # Man D-Dimer Sodium Chloride BUN Creatinine Glucose POC Glucose 147 H 163 H 211 H Hemoglobin A1c Calcium Phosphorus Iron Total Creatine Kinase CK-MB (CK-2) Albumin Sbohb-7-Srmonbgpw PEP Interpretation HDL Cholesterol Urine Creatinine Urine Total Protein Allied health notes reviewed: nursing
[2018-09-08] MEDS: NEURONTIN PO SCH (22:07)
[2018-09-09] MEDS: APRESOLINE PO SCH (05:49)
[2018-09-09 05:51] LABS: Calcium 9.1 mg/dL (8.4-10.2)
--- NOTE | 2018-09-09 09:13 | Progress Note ---
Assessment and Plan ESRD on HD -no indication for HD today -Assess need for HD on daily basis -Secondary GN workup was negative -Renal ultrasound on 08/16/18- Chronic medical renal disease. No Hydronephrosis. -Renally dose all medications -Avoid Nephrotoxic agents -Strict I/O's -Mckeon Catheter: None -Patient awaiting placement to [facility] Acute Diastolic Congestive heart failure -Echo- LVEF is 55-60% -S/p IV Lasix -UF with HD -Cardiology on board Hyponatremia: - Likely due to hypervolemia - Fluid restriction of 1 liter per day - will increase sodium bath with HD Anemia of chronic disease due to CKD: -On Epogen for anemia management -Monitor H/H Essential Hypertension: - Continue on current regimen - Adjust medications as needed Diabetes Mellitus type 2 on insulin: -On insulin as per primary team Subjective Date of service: 09/09/18 Principal diagnosis: CHF; CKD; HANSEN; Elevated d-dimer; Essential HTN; Morbid obesity; MARBELLA Interval history: tolerated HD yesterday Objective - Vital Signs Vital signs: Vital Signs - 12hr 09/08/18 09/08/18 09/08/18 22:00 22:04 22:45 Temperature 98.1 F 98.1 F Pulse Rate 68 69 Pulse Rate [ 68 Right Radial] Respiratory 18 18 18 Rate Blood Pressure 128/56 112/52 O2 Sat by Pulse 97 97 97 Oximetry 09/09/18 09/09/18 05:05 05:49 Temperature 97.4 F L Pulse Rate 75 69 Pulse Rate [ Right Radial] Respiratory 20 Rate Blood Pressure 81/27 94/36 O2 Sat by Pulse 95 Oximetry - General Appearance General appearance: well-developed, well-nourished, obese EENT: ATNC, PERRL, mucous membranes moist Neck: no JVD, no carotid bruit Respiratory: Present: Clear to Ascultation. Absent: Rales, Ronchi Cardiology: regular, S1S2 Gastrointestinal: normoactive bowel sounds Integumentary: no rash, warm and dry Neurologic: no focal deficit, no asterixis, alert and oriented x3 Musculoskeletal: other (1+ [itting edema in BLE) Psychiatric: mood/affect appropriate, cooperative - Lab 08/30/18 04:17 09/09/18 04:51 Most recent lab results Calcium 9.1 mg/dL (8.4-10.2) 09/09/18 04:51 Phosphorus 3.90 mg/dL (2.5-4.5) 08/25/18 04:43 56.1 mg/dL (0.1-20.0) H 08/20/18 12:09 132 mmol/L 08/17/18 04:00 79 mg/dL (5-11.8) H 08/17/18 04:00 Medications & Allergies - Medications Allergies/Adverse Reactions: Allergies canagliflozin [From Invokana] Allergy (Verified 08/15/18 17:49) Unknown IV CONTRAST DYE Allergy (Uncoded 08/15/18 17:49) Unknown Home Medications: Home Medications Medication Instructions Recorded Confirmed Last Taken Type Doxylamine Succinate [Unisom] 25 mg PO QHS 08/16/18 08/16/18 Unknown History Niacin [Niacor] 500 mg PO DAILY 08/16/18 08/16/18 Unknown History Triamcinolone Acetonide [Nasacort 10.8 ml NS DAILY 08/16/18 08/16/18 Unknown History SPRAY] Aspirin [Aspirin BABY CHEW TAB] 81 mg PO QDAY tab.chew 09/03/18 Unknown Rx AtorvaSTATin [Lipitor] 40 mg PO QHS #40 tablet 09/03/18 Unknown Rx Carvedilol [Coreg] 6.25 mg PO BID #60 tablet 09/03/18 Unknown Rx Cholecalciferol (Vitamin D3) 5,000 unit PO DAILY #30 capsule 09/03/18 Unknown Rx [Vitamin D3 5,000 UNIT] Epoetin Keon 10,000 Unit [Procrit] 10,000 unit SUB-Q MOWEFR 30 Days 09/03/18 U nknown Rx vial Gabapentin [Neurontin] 300 mg PO QHS #30 capsule 09/03/18 Unknown Rx Insulin Regular, Human [HumuLIN R] 5 units SUB-Q AC 30 Days units 09/03/18 Unknown Rx Lispro Insulin [HumaLOG] 0 unit SUB-Q ACHS units 09/03/18 Unknown Rx Loratadine [Claritin] 10 mg PO DAILY PRN #30 tablet 09/03/18 Unknown Rx Melatonin [Melatonin 3MG TAB] 3 mg PO QHS #30 tablet 09/03/18 Unknown Rx Nitroglycerin [Nitrostat] 0.4 mg SL .Q5MIN PRN tablet 09/03/18 Unknown Rx Omeprazole 20 mg PO DAILY PRN #30 capsule. 09/03/18 Unknown Rx hydrALAZINE [Apresoline TAB] 50 mg PO Q8HR #90 tablet 09/03/18 Unknown Rx oxyCODONE /ACETAMINOPHEN [Percocet 1 tab PO Q6H PRN #8 tablet 09/03/18 Unknown Rx 5/325 mg] Active Medications: Generic Name Dose Route Start Last Admin Trade Name Freq PRN Reason Stop Dose Admin Acetaminophen 650 mg 08/16/18 03:07 09/07/18 14:29 Tylenol PO 650 mg Q4H PRN Administration Pain MILD(1-3)/Fever >100.5/FRAIRE Albuterol 2.5 mg 08/16/18 03:07 Proventil IH Q4HRT PRN Shortness Of Breath Aspirin 81 mg 08/16/18 10:00 09/08/18 13:25 Baby Aspirin PO 81 mg QDAY ARLENE Administration Atorvastatin Calcium 40 mg 08/16/18 22:00 09/08/18 22:04 Lipitor PO 40 mg QHS ARLENE Administration Carvedilol 6.25 mg 08/17/18 12:00 09/08/18 22:04 Coreg PO 6.25 mg BID ARLENE Administration Cholecalciferol 5,000 unit 08/16/18 10:00 09/08/18 13:23 Vitamin D3 PO 5,000 unit DAILY ARLENE Administration Dextrose 50 ml 08/16/18 03:13 D50w (25gm) Syringe IV PRN PRN Hypoglycemia Docusate Sodium 100 mg 08/16/18 10:00 09/08/18 22:07 Colace PO 100 mg BID ARLENE Administration Epoetin Keon 10,000 unit 08/18/18 13:00 09/08/18 13:25 Procrit SUB-Q Not Given MOWEFR ARLENE Gabapentin 300 mg 08/16/18 22:00 09/08/18 22:07 Neurontin PO 300 mg QHS ARLENE Administration Heparin Sodium (Porcine) 5,000 unit 08/16/18 10:00 09/08/18 22:07 Heparin SUB-Q 5,000 unit Q12HR ARLENE Administration Hydralazine HCl 50 mg 08/16/18 14:00 09/09/18 05:49 Apresoline PO Not Given Q8HR [facility] Sodium Chloride 100 mls @ 999 mls/hr 09/02/18 09:49 Nacl 0.9% IV JANE PRN Hypotension Insulin Human Lispro 0 unit 08/16/18 07:30 09/08/18 22:08 Humalog SUB-Q 3 unit ACHS ARLENE Administration Protocol Insulin Human Regular 5 units 08/16/18 07:30 09/08/18 17:26 Humulin R SUB-Q 5 units AC ARLENE Administration Nitroglycerin 0.4 mg 08/16/18 03:07 Nitrostat SL .Q5MIN PRN Chest Pain Ondansetron HCl 4 mg 08/16/18 03:07 08/16/18 16:39 Zofran IV 4 mg Q8H PRN Administration Nausea And Vomiting Oxycodone/Acetaminophen 1 tab 08/16/18 03:07 08/23/18 22:06 Percocet 5/325 PO 1 tab Q6H PRN Administration Pain, Moderate (4-6) Sodium Chloride 10 ml 08/16/18 10:00 09/08/18 22:08 Sodium Chloride Flush Syringe 10 Ml IV 10 ml BID ARLENE Administration Sodium Chloride 10 ml 08/16/18 03:07 08/16/18 06:17 Sodium Chloride Flush Syringe 10 Ml IV 10 ml PRN PRN Administration LINE FLUSH
[2018-09-09] MEDS: HumuLIN R SUB-Q SCH ×2 (09:18→12:43)
[2018-09-09] MEDS: HumaLOG SUB-Q SCH ×2 (09:19→12:43)
--- NOTE | 2018-09-09 09:46 | Progress Note ---
Hospitalist Physical - Constitutional Vitals: Temp Pulse Resp BP Pulse Ox 97.4 F L 69 20 94/36 95 09/09/18 05:05 09/09/18 05:49 09/09/18 05:05 09/09/18 05:49 09/09/18 05:05 General appearance: Present: no acute distress, well-nourished Results - Labs CBC & Chem 7: 08/30/18 04:17 09/09/18 04:51 Labs: Laboratory Last Values WBC 6.8 K/mm3 (4.5-11.0) 08/30/18 04:17 RBC 3.64 M/mm3 (3.65-5.03) L 08/30/18 04:17 Hgb 9.8 gm/dl (11.8-15.2) L 08/30/18 04:17 Hct 29.6 % (35.5-45.6) L 08/30/18 04:17 MCV 81 fl (84-94) L 08/30/18 04:17 MCH 27 pg (28-32) L 08/30/18 04:17 MCHC 33 % (32-34) 08/30/18 04:17 RDW 16.8 % (13.2-15.2) H 08/30/18 04:17 Plt Count 158 K/mm3 (140-440) 08/30/18 04:17 Lymph % (Auto) 26.6 % (13.4-35.0) 08/17/18 07:30 Tripp % (Auto) Fire Dispatcher 08/25/18 04:43 Eos % (Auto) 6.6 % (0.0-4.3) H 08/17/18 07:30 Baso % (Auto) 1.1 % (0.0-1.8) 08/17/18 07:30 Lymph # 1.3 K/mm3 (1.2-5.4) 08/17/18 07:30 Tripp # 0.7 K/mm3 (0.0-0.8) 08/17/18 07:30 Eos # 0.3 K/mm3 (0.0-0.4) 08/17/18 07:30 Baso # 0.1 K/mm3 (0.0-0.1) 08/17/18 07:30 Add Manual Diff Complete 08/25/18 04:43 Total Counted 100 08/25/18 04:43 Seg Neutrophils % 51.7 % (40.0-70.0) 08/17/18 07:30 Seg Neuts % (Manual) 62.0 % (40.0-70.0) 08/25/18 04:43 0 % 08/25/18 04:43 23.0 % (13.4-35.0) 08/25/18 04:43 Reactive Lymphs % (Man) 0 % 08/25/18 04:43 10.0 % (0.0-7.3) H 08/25/18 04:43 4.0 % (0.0-4.3) 08/25/18 04:43 1.0 % (0.0-1.8) 08/25/18 04:43 0 % 08/25/18 04:43 0 % 08/25/18 04:43 0 % 08/25/18 04:43 0 % 08/25/18 04:43 Nucleated RBC % Not Reportable 08/25/18 04:43 Seg Neutrophils # 2.6 K/mm3 (1.8-7.7) 08/17/18 07:30 Seg Neutrophils # Man 3.3 K/mm3 (1.8-7.7) 08/25/18 04:43 Band Neutrophils # 0.0 K/mm3 08/25/18 04:43 1.2 K/mm3 (1.2-5.4) 08/25/18 04:43 Abs React Lymphs (Man) 0.0 K/mm3 08/25/18 04:43 0.5 K/mm3 (0.0-0.8) 08/25/18 04:43 0.2 K/mm3 (0.0-0.4) 08/25/18 04:43 0.1 K/mm3 (0.0-0.1) 08/25/18 04:43 0.0 K/mm3 08/25/18 04:43 0.0 K/mm3 08/25/18 04:43 0.0 K/mm3 08/25/18 04:43 Blast Cells # 0.0 K/mm3 08/25/18 04:43 WBC Morphology Not Reportable 08/25/18 04:43 Hypersegmented Neuts Not Reportable 08/25/18 04:43 Hyposegmented Neuts Not Reportable 08/25/18 04:43 Hypogranular Neuts Not Reportable 08/25/18 04:43 Not Reportable 08/25/18 04:43 Not Reportable 08/25/18 04:43 Not Reportable 08/25/18 04:43 Not Reportable 08/25/18 04:43 Not Reportable 08/25/18 04:43 Not Reportable 08/25/18 04:43 Consistent w auto 08/25/18 04:43 Not Reportable 08/25/18 04:43 Plt Clumps, EDTA Not Reportable 08/25/18 04:43 Rare 08/25/18 04:43 Not Reportable 08/25/18 04:43 Not Reportable 08/25/18 04:43 Plt Morphology Comment Not Reportable 08/25/18 04:43 RBC Morphology Not Reportable 08/25/18 04:43 Dimorphic RBCs Not Reportable 08/25/18 04:43 Not Reportable 08/25/18 04:43 Not Reportable 08/25/18 04:43 1+ 08/25/18 04:43 1+ 08/25/18 04:43 Not Reportable 08/25/18 04:43 Not Reportable 08/25/18 04:43 Not Reportable 08/25/18 04:43 Not Reportable 08/25/18 04:43 Not Reportable 08/25/18 04:43 Not Reportable 08/25/18 04:43 Not Reportable 08/25/18 04:43 Not Reportable 08/25/18 04:43 Not Reportable 08/25/18 04:43 Not Reportable 08/25/18 04:43 Not Reportable 08/25/18 04:43 Not Reportable 08/25/18 04:43 Not Reportable 08/25/18 04:43 Not Reportable 08/25/18 04:43 1+ 08/25/18 04:43 Acanthocytes (Spur) Not Reportable 08/25/18 04:43 Rouleaux Not Reportable 08/25/18 04:43 Not Reportable 08/25/18 04:43 Not Reportable 08/25/18 04:43 Not Reportable 08/25/18 04:43 Not Reportable 08/25/18 04:43 Hem Pathologist Commnt No 08/25/18 04:43 463.24 ng/mlDDU (0-234) H 08/15/18 21:24 Sodium 131 mmol/L (137-145) L 09/09/18 04:51 Potassium 4.5 mmol/L (3.6-5.0) 09/09/18 04:51 Chloride 94.5 mmol/L (98-107) L 09/09/18 04:51 Carbon Dioxide 25 mmol/L (22-30) 09/09/18 04:51 16 mmol/L 09/09/18 04:51 BUN 41 mg/dL (9-20) H 09/09/18 04:51 3.6 mg/dL (0.8-1.5) H 09/09/18 04:51 Estimated GFR 18 ml/min 09/09/18 04:51 11 % 09/09/18 04:51 Glucose 127 mg/dL (75-100) H 09/09/18 04:51 POC Glucose 132 (70-105) H 09/09/18 08:23 7.4 % (4-6) H 08/16/18 03:37 Lactic Acid 0.70 mmol/L (0.7-2.0) 08/20/18 04:53 Calcium 9.1 mg/dL (8.4-10.2) 09/09/18 04:51 Phosphorus 3.90 mg/dL (2.5-4.5) 08/25/18 04:43 Iron 30 ug/dL (49-181) L 08/16/18 13:52 TIBC 352 mcg/dL (250-450) 08/16/18 13:52 78.2 ng/mL (13.0-400.0) 08/18/18 08:34 0.40 mg/dL (0.1-1.2) 08/15/18 18:54 AST 25 units/L (5-40) 08/15/18 18:54 ALT 15 units/L (7-56) 08/15/18 18:54 74 units/L (35-129) 08/15/18 18:54 340 units/L (55-170) H 08/15/18 21:24 CK-MB (CK-2) 5.0 ng/mL (0.0-4.0) H 08/15/18 21:24 CK-MB (CK-2) Rel Index 1.4 (0-4) 08/15/18 21:24 0.026 ng/mL (0.00-0.029) 08/15/18 21:24 NT-Pro-B Natriuret Pep 877.6 pg/mL (0-900) 08/17/18 11:13 6.1 g/dL (6.1-8.1) 08/17/18 11:13 6.7 g/dL (6.3-8.2) 08/15/18 18:54 2.9 g/dL (3.8-4.8) L 08/17/18 11:13 0.9 % 08/15/18 18:54 0.4 g/dL (0.2-0.3) H 08/17/18 11:13 0.7 g/dL (0.5-0.9) 08/17/18 11:13 0.5 g/dL (0.2-0.5) 08/17/18 11:13 1.1 g/dL (0.8-1.7) 08/17/18 11:13 Abnorm Protein Band 1 see below 08/17/18 11:13 PEP Interpretation see below H 08/17/18 11:13 Triglycerides 140 mg/dL (2-149) 08/16/18 03:37 Cholesterol 147 mg/dL (50-199) 08/16/18 03:37 88 mg/dL (50-130) 08/16/18 03:37 37 mg/dL (40-59) L 08/16/18 03:37 3.97 % 08/16/18 03:37 Straw (Yellow) 08/17/18 04:00 Clear (Clear) 08/17/18 04:00 7.0 (5.0-7.0) 08/17/18 04:00 Ur Specific [place] 1.006 (1.003-1.030) 08/17/18 04:00 100 mg/dl mg/dL (Negative) 08/17/18 04:00 Neg mg/dL (Negative) 08/17/18 04:00 Neg mg/dL (Negative) 08/17/18 04:00 Neg (Negative) 08/17/18 04:00 Neg (Negative) 08/17/18 04:00 Neg (Negative) 08/17/18 04:00 < 2.0 mg/dL (<2.0) 08/17/18 04:00 Ur Leukocyte Esterase Neg (Negative) 08/17/18 04:00 < 1.0 /HPF (0.0-6.0) 08/17/18 04:00 2.0 /HPF (0.0-6.0) 08/17/18 04:00 U Epithel Cells (Auto) 1.0 /HPF (0-13.0) 08/15/18 18:47 1+ /HPF (Negative) 08/17/18 04:00 Few /HPF 08/15/18 18:47 None seen (None Seen) 08/17/18 04:00 Ur Random Creatinine See scanned report 08/17/18 10:40 U Random Total Protein See scanned report 08/17/18 10:40 800 ml 08/20/18 12:09 56.1 mg/dL (0.1-20.0) H 08/20/18 12:09 Height (in) 68.0 inches 08/20/18 12:09 Weight (lb) 348.8 lbs 08/20/18 12:09 6 08/20/18 12:09 Protein/Creatinin Ratio See scanned report 08/17/18 10:40 132 mmol/L 08/17/18 04:00 106 08/17/18 04:00 79 mg/dL (5-11.8) H 08/17/18 04:00 U Abnormal Prot Band 1 See scanned report 08/17/18 10:40 U Abnormal Prot Band 2 See scanned report 08/17/18 10:40 U Abnormal Prot Band 3 See scanned report 08/17/18 10:40 Immunofix Electrophor see below 08/17/18 11:13 JELANI Screen Negative (Negative) 08/17/18 11:13 Double Strand DNA Ab <1 IU/mL (<=4) 08/17/18 11:13 144 mg/dL (82-185) 08/17/18 11:13 23 mg/dL (15-53) 08/17/18 11:13 RPR Nonreactive (Nonreactive) 08/17/18 11:13 Hepatitis A IgM Ab Non-reactive (NonReactive) 08/17/18 11:13 Hep Bs Antigen Non-reactive (Negative) 08/17/18 11:13 Hep B Core IgM Ab Non-reactive (NonReactive) 08/17/18 11:13 Non-reactive (NonReactive) 08/17/18 11:13 HIV 1&2 Antibody Rapid Non react (Non React) 08/17/18 11:13 Non react (Non React) 08/17/18 11:13 Active Medications - Current Medications Current Medications: Generic Name Dose Route Start Last Admin Trade Name Freq PRN Reason Stop Dose Admin Acetaminophen 650 mg 08/16/18 03:07 09/07/18 14:29 Tylenol PO 650 mg Q4H PRN Administration Pain MILD(1-3)/Fever >100.5/FRAIRE Albuterol 2.5 mg 08/16/18 03:07 Proventil IH Q4HRT PRN Shortness Of Breath Aspirin 81 mg 08/16/18 10:00 09/08/18 13:25 Baby Aspirin PO 81 mg QDAY ARLENE Administration Atorvastatin Calcium 40 mg 08/16/18 22:00 09/08/18 22:04 Lipitor PO 40 mg QHS ARLENE Administration Carvedilol 6.25 mg 08/17/18 12:00 09/08/18 22:04 Coreg PO 6.25 mg BID ARLENE Administration Cholecalciferol 5,000 unit 08/16/18 10:00 09/08/18 13:23 Vitamin D3 PO 5,000 unit DAILY ARLENE Administration Dextrose 50 ml 08/16/18 03:13 D50w (25gm) Syringe IV PRN PRN Hypoglycemia Docusate Sodium 100 mg 08/16/18 10:00 09/08/18 22:07 Colace PO 100 mg BID ARLENE Administration Epoetin Keon 10,000 unit 08/18/18 13:00 09/08/18 13:25 Procrit SUB-Q Not Given MOWEFR ARLENE Gabapentin 300 mg 08/16/18 22:00 09/08/18 22:07 Neurontin PO 300 mg QHS ARLENE Administration Heparin Sodium (Porcine) 5,000 unit 08/16/18 10:00 09/08/18 22:07 Heparin SUB-Q 5,000 unit Q12HR ARLENE Administration Hydralazine HCl 50 mg 08/16/18 14:00 09/09/18 05:49 Apresoline PO Not Given Q8HR ARLENE Sodium Chloride 100 mls @ 999 mls/hr 09/02/18 09:49 Nacl 0.9% IV JANE PRN Hypotension Insulin Human Lispro 0 unit 08/16/18 07:30 09/09/18 09:19 Humalog SUB-Q Not Given ACHS [facility] Protocol Insulin Human Regular 5 units 08/16/18 07:30 09/09/18 09:18 Humulin R SUB-Q 5 units AC ARLENE Administration Nitroglycerin 0.4 mg 08/16/18 03:07 Nitrostat SL .Q5MIN PRN Chest Pain Ondansetron HCl 4 mg 08/16/18 03:07 08/16/18 16:39 Zofran IV 4 mg Q8H PRN Administration Nausea And Vomiting Oxycodone/Acetaminophen 1 tab 08/16/18 03:07 08/23/18 22:06 Percocet 5/325 PO 1 tab Q6H PRN Administration Pain, Moderate (4-6) Sodium Chloride 10 ml 08/16/18 10:00 09/08/18 22:08 Sodium Chloride Flush Syringe 10 Ml IV 10 ml BID ARLENE Administration Sodium Chloride 10 ml 08/16/18 03:07 08/16/18 06:17 Sodium Chloride Flush Syringe 10 Ml IV 10 ml PRN PRN Administration LINE FLUSH Nutrition/Malnutrition Assess - Dietary Evaluation Nutrition/Malnutrition Findings: Nutrition Notes Start: 08/16/18 09:25 Freq: Status: Active Protocol: Document 08/19/18 14:48 GHASSAN (Rec: 08/19/18 14:54 GHASSAN [email or web address]) Nutrition Notes Initial or Follow up Brief Note Current Diagnosis CKD(stage I-IV),Diabetes Other Pertinent Diagnosis Fluid retention in scrotum and BLE edema, wounds on toe, heel and leg Current Diet Cardiac/consistent CHO Labs/Tests Na 134 BUN 55 Cr 4.4 Pertinent Medications Reviewed [place] Body Weight (kg) 0 Subjective/Other Information Pt reports good appetite; has been consuming 75-100% of meals. Nutrition Intervention Revisit per MD consult or patient Sign Off request:
--- NOTE | 2018-09-09 10:01 | Progress Note ---
Assessment and Plan Patient presently resting on room air. O2 Sat 95%. No complain of chest pain, shortness of breath or cough. - Patient Problems (1) CHF (congestive heart failure) Current Visit: Yes Status: Acute Qualifiers: Heart failure type: diastolic Heart failure chronicity: acute Qualified Code(s): I50.31 - Acute diastolic (congestive) heart failure Plan to address problem: Management as per cardiology. (2) CKD (chronic kidney disease) Current Visit: Yes Status: Acute Qualifiers: Chronic kidney disease stage: stage 3 (moderate) Qualified Code(s): N18.3 - Chronic kidney disease, stage 3 (moderate) Plan to address problem: Patient is on hemodialysis. Management as per nephrology. (3) HANSEN (dyspnea on exertion) Current Visit: Yes Status: Acute Plan to address problem: Albuterol aerosol treatments q 6 hours prn for shortness of breath. O2 2 litres via nasal canula BIPAP during night time and PRN during day time for shortness of breath. Continue S/C Heparin. (4) Elevated d-dimer Current Visit: Yes Status: Acute Plan to address problem: Venous doppler studies reported negative for DVT. Perfusion lung scan reported low probabily for pulmonary emboli. Continue S/C heparin. (5) Essential hypertension Current Visit: Yes Status: Chronic Plan to address problem: Management as per primary care. (6) Morbid obesity Current Visit: Yes Status: Chronic Plan to address problem: Recommend to loose weight. Exercise and diet. (7) Sleep apnea with use of continuous positive airway pressure (CPAP) Current Visit: Yes Status: Acute Plan to address problem: Continue BIPAP as using at home. Subjective Date of service: 09/09/18 Principal diagnosis: CHF; CKD; HANSEN; Elevated d-dimer; Essential HTN; Morbid obesity; MARBELLA Interval history: Patient presently resting on room air. O2 Sat 95%. No complain of chest pain, shortness of breath or cough. Objective Vital Signs - 12hr 09/08/18 09/08/18 09/09/18 22:04 22:45 05:05 Temperature 98.1 F 98.1 F 97.4 F L Pulse Rate 68 69 75 Respiratory 18 18 20 Rate Blood Pressure 128/56 112/52 81/27 O2 Sat by Pulse 97 97 95 Oximetry 09/09/18 05:49 Temperature Pulse Rate 69 Respiratory Rate Blood Pressure 94/36 O2 Sat by Pulse Oximetry Constitutional: no acute distress, alert, other (Morbidly Obese middle aged CM) Eyes: non-icteric ENT: oropharynx moist, other (mallampati 4) Neck: supple, no JVD, other (large neck circumference) Effort: mildly labored Ascultation: Bilateral: diminished breath sounds, rhonchi (scant in bases) Percussion: Bilateral: not dull Cardiovascular: regular rate and rhythm Gastrointestinal: normoactive bowel sounds, soft, non-tender, other (protuberant) Integumentary: cellulitis, other (Cellulitis and wounds in both lower legs.) Extremities: no cyanosis, pink and warm, pulses normal, edema (trace to 1+) Neurologic: normal mental status, non-focal exam, pupils equal and round, CN II- XII normal Psychiatric: mood appropriate, affect normal CBC and BMP: 08/30/18 04:17 09/09/18 04:51 ABG, PT/INR, D-dimer: PT/INR, D-dimer 463.24 ng/mlDDU (0-234) H 08/15/18 21:24 Abnormal lab findings: Abnormal Labs 08/15/18 08/15/18 08/15/18 18:02 18:54 18:54 WBC RBC 3.61 L Hgb 9.8 L Hct 30.1 L MCV MCH 27 L RDW 16.8 H Plt Count Boundary % (Auto) 10.7 H Eos % (Auto) 5.9 H Seg Neuts % (Manual) Lymphocytes % (Manual) Monocytes % (Manual) Eosinophils % (Manual) Basophils % (Manual) Seg Neutrophils # Man D-Dimer Sodium Chloride 107.7 H BUN 25 H Creatinine 2.5 H Glucose 159 H POC Glucose 124 H Hemoglobin A1c Calcium Phosphorus Iron Total Creatine Kinase CK-MB (CK-2) Albumin 3.2 L Byjgq-1-Ipnipjzoy PEP Interpretation HDL Cholesterol Urine Creatinine Urine Total Protein 08/15/18 08/15/18 08/16/18 21:24 21:24 03:37 WBC RBC Hgb Hct MCV MCH RDW Plt Count Boundary % (Auto) Eos % (Auto) Seg Neuts % (Manual) Lymphocytes % (Manual) Monocytes % (Manual) Eosinophils % (Manual) Basophils % (Manual) Seg Neutrophils # Man D-Dimer 463.24 H Sodium Chloride BUN Creatinine Glucose POC Glucose Hemoglobin A1c 7.4 H Calcium Phosphorus Iron Total Creatine Kinase 340 H CK-MB (CK-2) 5.0 H Albumin Vsebf-7-Kyncjkktt PEP Interpretation HDL Cholesterol Urine Creatinine Urine Total Protein 08/16/18 08/16/18 08/16/18 03:37 07:54 12:01 WBC RBC Hgb Hct MCV MCH RDW Plt Count Boundary % (Auto) Eos % (Auto) Seg Neuts % (Manual) Lymphocytes % (Manual) Monocytes % (Manual) Eosinophils % (Manual) Basophils % (Manual) Seg Neutrophils # Man D-Dimer Sodium Chloride BUN Creatinine Glucose POC Glucose 113 H 179 H Hemoglobin A1c Calcium Phosphorus Iron Total Creatine Kinase CK-MB (CK-2) Albumin Ybhoz-4-Bzjiodcot PEP Interpretation HDL Cholesterol 37 L Urine Creatinine Urine Total Protein 08/16/18 08/16/18 08/16/18 13:52 17:44 21:21 WBC RBC Hgb Hct MCV MCH RDW Plt Count Boundary % (Auto) Eos % (Auto) Seg Neuts % (Manual) Lymphocytes % (Manual) Monocytes % (Manual) Eosinophils % (Manual) Basophils % (Manual) Seg Neutrophils # Man D-Dimer Sodium Chloride BUN Creatinine Glucose POC Glucose 221 H 165 H Hemoglobin A1c Calcium Phosphorus Iron 30 L Total Creatine Kinase CK-MB (CK-2) Albumin Nmtwg-0-Dioiixdhy PEP Interpretation HDL Cholesterol Urine Creatinine Urine Total Protein 08/17/18 08/17/18 08/17/18 04:00 07:30 07:30 WBC RBC Hgb 10.3 L Hct 31.5 L MCV 82 L MCH 27 L RDW 16.8 H Plt Count Boundary % (Auto) 14.0 H Eos % (Auto) 6.6 H Seg Neuts % (Manual) Lymphocytes % (Manual) Monocytes % (Manual) Eosinophils % (Manual) Basophils % (Manual) Seg Neutrophils # Man D-Dimer Sodium Chloride BUN 32 H Creatinine 2.9 H Glucose 180 H POC Glucose Hemoglobin A1c Calcium Phosphorus Iron Total Creatine Kinase CK-MB (CK-2) Albumin Qkgfo-3-Eqczvqrwv PEP Interpretation HDL Cholesterol Urine Creatinine 22.4 H Urine Total Protein 79 H 08/17/18 08/17/18 08/17/18 07:34 11:13 12:17 WBC RBC Hgb Hct MCV MCH RDW Plt Count Boundary % (Auto) Eos % (Auto) Seg Neuts % (Manual) Lymphocytes % (Manual) Monocytes % (Manual) Eosinophils % (Manual) Basophils % (Manual) Seg Neutrophils # Sadi D-Dimer Sodium Chloride BUN Creatinine Glucose POC Glucose 169 H 207 H Hemoglobin A1c Calcium Phosphorus Iron Total Creatine Kinase CK-MB (CK-2) Albumin 2.9 L Rpdfa-7-Mlippyflc 0.4 H PEP Interpretation see below H HDL Cholesterol Urine Creatinine Urine Total Protein 08/17/18 08/17/18 08/18/18 16:36 21:17 07:05 WBC RBC Hgb Hct MCV MCH RDW Plt Count Boundary % (Auto) Eos % (Auto) Seg Neuts % (Manual) Lymphocytes % (Manual) Monocytes % (Manual) Eosinophils % (Manual) Basophils % (Manual) Seg Neutrophils # Sadi D-Dimer Sodium 134 L Chloride 95.9 L BUN 43 H Creatinine 3.8 H Glucose 150 H POC Glucose 184 H 209 H Hemoglobin A1c Calcium Phosphorus Iron Total Creatine Kinase CK-MB (CK-2) Albumin Iuxcn-0-Jgudyxsrp PEP Interpretation HDL Cholesterol Urine Creatinine Urine Total Protein 08/18/18 08/18/18 08/18/18 07:53 08:34 11:53 WBC RBC Hgb 10.8 L Hct 33.8 L MCV MCH 27 L RDW 16.3 H Plt Count Boundary % (Auto) Eos % (Auto) Seg Neuts % (Manual) Lymphocytes % (Manual) Monocytes % (Manual) Eosinophils % (Manual) Basophils % (Manual) Seg Neutrophils # Sadi D-Dimer Sodium Chloride BUN Creatinine Glucose POC Glucose 139 H 191 H Hemoglobin A1c Calcium Phosphorus Iron Total Creatine Kinase CK-MB (CK-2) Albumin Jekst-6-Ktygfzwex PEP Interpretation HDL Cholesterol Urine Creatinine Urine Total Protein 08/18/18 08/18/18 08/19/18 15:54 20:49 05:28 WBC RBC Hgb 9.7 L Hct 30.1 L MCV 82 L MCH 26 L RDW 16.6 H Plt Count 136 L Boundary % (Auto) Eos % (Auto) Seg Neuts % (Manual) Lymphocytes % (Manual) Monocytes % (Manual) Eosinophils % (Manual) Basophils % (Manual) Seg Neutrophils # Sadi D-Dimer Sodium Chloride BUN Creatinine Glucose POC Glucose 150 H 138 H Hemoglobin A1c Calcium Phosphorus Iron Total Creatine Kinase CK-MB (CK-2) Albumin Zdurl-5-Tqpfdrluc PEP Interpretation HDL Cholesterol Urine Creatinine Urine Total Protein 08/19/18 08/19/18 08/19/18 05:28 07:43 11:57 WBC RBC Hgb Hct MCV MCH RDW Plt Count Boundary % (Auto) Eos % (Auto) Seg Neuts % (Manual) Lymphocytes % (Manual) Monocytes % (Manual) Eosinophils % (Manual) Basophils % (Manual) Seg Neutrophils # Man D-Dimer Sodium 134 L Chloride 96.2 L BUN 55 H Creatinine 4.4 H Glucose 118 H POC Glucose 162 H 280 H Hemoglobin A1c Calcium Phosphorus Iron Total Creatine Kinase CK-MB (CK-2) Albumin Boqxs-7-Kelwkiobv PEP Interpretation HDL Cholesterol Urine Creatinine Urine Total Protein 08/19/18 08/19/18 08/20/18 15:41 21:44 04:53 WBC 3.5 L RBC 3.58 L Hgb 9.4 L Hct 29.5 L MCV 83 L MCH 26 L RDW 16.4 H Plt Count 121 L Boundary % (Auto) Eos % (Auto) Seg Neuts % (Manual) Lymphocytes % (Manual) Monocytes % (Manual) 16.0 H Eosinophils % (Manual) Basophils % (Manual) 3.0 H Seg Neutrophils # Man 1.6 L D-Dimer Sodium Chloride BUN Creatinine Glucose POC Glucose 167 H 234 H Hemoglobin A1c Calcium Phosphorus Iron Total Creatine Kinase CK-MB (CK-2) Albumin Lfiad-0-Daynyaetx PEP Interpretation HDL Cholesterol Urine Creatinine Urine Total Protein 08/20/18 08/20/18 08/20/18 04:53 08:13 12:09 WBC RBC Hgb Hct MCV MCH RDW Plt Count Boundary % (Auto) Eos % (Auto) Seg Neuts % (Manual) Lymphocytes % (Manual) Monocytes % (Manual) Eosinophils % (Manual) Basophils % (Manual) Seg Neutrophils # Man D-Dimer Sodium 136 L Chloride BUN 57 H Creatinine 3.3 H Glucose 136 H POC Glucose 124 H Hemoglobin A1c Calcium Phosphorus 5.50 H Iron Total Creatine Kinase CK-MB (CK-2) Albumin Lggea-8-Ypgvnadjk PEP Interpretation HDL Cholesterol Urine Creatinine 56.1 H Urine Total Protein 08/20/18 08/20/18 08/20/18 12:49 18:26 20:53 WBC RBC Hgb Hct MCV MCH RDW Plt Count Boundary % (Auto) Eos % (Auto) Seg Neuts % (Manual) Lymphocytes % (Manual) Monocytes % (Manual) Eosinophils % (Manual) Basophils % (Manual) Seg Neutrophils # Sadi D-Dimer Sodium Chloride BUN Creatinine Glucose POC Glucose 145 H 175 H 184 H Hemoglobin A1c Calcium Phosphorus Iron Total Creatine Kinase CK-MB (CK-2) Albumin Ofusx-2-Vtwyunamr PEP Interpretation HDL Cholesterol Urine Creatinine Urine Total Protein 08/21/18 08/21/18 08/21/18 04:28 04:28 08:58 WBC 3.8 L RBC 3.42 L Hgb 9.2 L Hct 28.4 L MCV 83 L MCH 27 L RDW 16.4 H Plt Count 126 L Boundary % (Auto) Eos % (Auto) Seg Neuts % (Manual) Lymphocytes % (Manual) Monocytes % (Manual) 15.0 H Eosinophils % (Manual) Basophils % (Manual) Seg Neutrophils # Sadi D-Dimer Sodium 134 L Chloride 96.5 L BUN 59 H Creatinine 3.4 H Glucose 190 H POC Glucose 159 H Hemoglobin A1c Calcium Phosphorus 5.10 H Iron Total Creatine Kinase CK-MB (CK-2) Albumin Xfrus-4-Qcmpbiymo PEP Interpretation HDL Cholesterol Urine Creatinine Urine Total Protein 08/21/18 08/21/18 08/21/18 12:25 17:10 21:43 WBC RBC Hgb Hct MCV MCH RDW Plt Count Boundary % (Auto) Eos % (Auto) Seg Neuts % (Manual) Lymphocytes % (Manual) Monocytes % (Manual) Eosinophils % (Manual) Basophils % (Manual) Seg Neutrophils # Sadi D-Dimer Sodium Chloride BUN Creatinine Glucose POC Glucose 222 H 152 H 150 H Hemoglobin A1c Calcium Phosphorus Iron Total Creatine Kinase CK-MB (CK-2) Albumin Xlokl-6-Zgsnrquau PEP Interpretation HDL Cholesterol Urine Creatinine Urine Total Protein 08/22/18 08/22/18 08/22/18 04:50 04:51 08:08 WBC 3.7 L RBC 3.37 L Hgb 9.0 L Hct 27.8 L MCV 83 L MCH 27 L RDW 16.9 H Plt Count 124 L Boundary % (Auto) Eos % (Auto) Seg Neuts % (Manual) Lymphocytes % (Manual) Monocytes % (Manual) 13.0 H Eosinophils % (Manual) 11.0 H Basophils % (Manual) Seg Neutrophils # Sadi 1.6 L D-Dimer Sodium 135 L Chloride 97.4 L BUN 64 H Creatinine 3.5 H Glucose 114 H POC Glucose 117 H Hemoglobin A1c Calcium Phosphorus 4.90 H Iron Total Creatine Kinase CK-MB (CK-2) Albumin Zinhu-0-Pzdnsllpu PEP Interpretation HDL Cholesterol Urine Creatinine Urine Total Protein 08/22/18 08/22/18 08/23/18 14:48 21:36 05:09 WBC 4.3 L RBC 3.60 L Hgb 9.6 L Hct 29.6 L MCV 82 L MCH 27 L RDW 16.6 H Plt Count 134 L Boundary % (Auto) Eos % (Auto) Seg Neuts % (Manual) 38.0 L Lymphocytes % (Manual) 51.0 H Monocytes % (Manual) 8.0 H Eosinophils % (Manual) Basophils % (Manual) Seg Neutrophils # Man 1.6 L D-Dimer Sodium Chloride BUN Creatinine Glucose POC Glucose 211 H 268 H Hemoglobin A1c Calcium Phosphorus Iron Total Creatine Kinase CK-MB (CK-2) Albumin Pjlht-0-Qhxhsatmc PEP Interpretation HDL Cholesterol Urine Creatinine Urine Total Protein 08/23/18 08/23/18 08/23/18 05:09 07:44 14:02 WBC RBC Hgb Hct MCV MCH RDW Plt Count Boundary % (Auto) Eos % (Auto) Seg Neuts % (Manual) Lymphocytes % (Manual) Monocytes % (Manual) Eosinophils % (Manual) Basophils % (Manual) Seg Neutrophils # Man D-Dimer Sodium Chloride BUN 45 H Creatinine 2.6 H Glucose 174 H POC Glucose 240 H 161 H Hemoglobin A1c Calcium Phosphorus Iron Total Creatine Kinase CK-MB (CK-2) Albumin Cfnjq-3-Zaozgsrth PEP Interpretation HDL Cholesterol Urine Creatinine Urine Total Protein 08/23/18 08/23/18 08/24/18 17:33 20:32 05:09 WBC RBC Hgb Hct MCV MCH RDW Plt Count Boundary % (Auto) Eos % (Auto) Seg Neuts % (Manual) Lymphocytes % (Manual) Monocytes % (Manual) Eosinophils % (Manual) Basophils % (Manual) Seg Neutrophils # Man D-Dimer Sodium 135 L Chloride 97.4 L BUN 38 H Creatinine 2.3 H Glucose 183 H POC Glucose 217 H 208 H Hemoglobin A1c Calcium Phosphorus Iron Total Creatine Kinase CK-MB (CK-2) Albumin Wylfz-9-Ualotozou PEP Interpretation HDL Cholesterol Urine Creatinine Urine Total Protein 08/24/18 08/24/18 08/24/18 07:49 11:32 16:44 WBC RBC Hgb Hct MCV MCH RDW Plt Count Boundary % (Auto) Eos % (Auto) Seg Neuts % (Manual) Lymphocytes % (Manual) Monocytes % (Manual) Eosinophils % (Manual) Basophils % (Manual) Seg Neutrophils # Sadi D-Dimer Sodium Chloride BUN Creatinine Glucose POC Glucose 171 H 271 H 168 H Hemoglobin A1c Calcium Phosphorus Iron Total Creatine Kinase CK-MB (CK-2) Albumin Ovgwe-2-Xncmnguhh PEP Interpretation HDL Cholesterol Urine Creatinine Urine Total Protein 08/24/18 08/25/18 08/25/18 20:54 04:43 04:43 WBC RBC 3.41 L Hgb 9.1 L Hct 28.0 L MCV 82 L MCH 27 L RDW 17.0 H Plt Count 133 L Boundary % (Auto) Eos % (Auto) Seg Neuts % (Manual) Lymphocytes % (Manual) Monocytes % (Manual) 10.0 H Eosinophils % (Manual) Basophils % (Manual) Seg Neutrophils # Sadi D-Dimer Sodium 136 L Chloride BUN 44 H Creatinine 2.6 H Glucose 193 H POC Glucose 214 H Hemoglobin A1c Calcium Phosphorus Iron Total Creatine Kinase CK-MB (CK-2) Albumin Ihkof-4-Fwkchjwvv PEP Interpretation HDL Cholesterol Urine Creatinine Urine Total Protein 08/25/18 08/25/18 08/25/18 08:04 13:43 16:39 WBC RBC Hgb Hct MCV MCH RDW Plt Count Boundary % (Auto) Eos % (Auto) Seg Neuts % (Manual) Lymphocytes % (Manual) Monocytes % (Manual) Eosinophils % (Manual) Basophils % (Manual) Seg Neutrophils # Sadi D-Dimer Sodium Chloride BUN Creatinine Glucose POC Glucose 167 H 193 H 249 H Hemoglobin A1c Calcium Phosphorus Iron Total Creatine Kinase CK-MB (CK-2) Albumin Hvxzh-4-Gxtcrouae PEP Interpretation HDL Cholesterol Urine Creatinine Urine Total Protein 08/25/18 08/26/18 08/26/18 21:15 04:56 07:21 WBC RBC Hgb Hct MCV MCH RDW Plt Count Boundary % (Auto) Eos % (Auto) Seg Neuts % (Manual) Lymphocytes % (Manual) Monocytes % (Manual) Eosinophils % (Manual) Basophils % (Manual) Seg Neutrophils # Man D-Dimer Sodium 133 L Chloride 96.3 L BUN 32 H Creatinine 2.1 H Glucose 186 H POC Glucose 176 H 183 H Hemoglobin A1c Calcium 8.3 L Phosphorus Iron Total Creatine Kinase CK-MB (CK-2) Albumin Pgvsb-0-Simkfgdux PEP Interpretation HDL Cholesterol Urine Creatinine Urine Total Protein 08/26/18 08/26/18 08/26/18 14:34 16:34 21:07 WBC RBC Hgb Hct MCV MCH RDW Plt Count Boundary % (Auto) Eos % (Auto) Seg Neuts % (Manual) Lymphocytes % (Manual) Monocytes % (Manual) Eosinophils % (Manual) Basophils % (Manual) Seg Neutrophils # Sadi D-Dimer Sodium Chloride BUN Creatinine Glucose POC Glucose 165 H 206 H 185 H Hemoglobin A1c Calcium Phosphorus Iron Total Creatine Kinase CK-MB (CK-2) Albumin Cnztx-1-Tlniwjdza PEP Interpretation HDL Cholesterol Urine Creatinine Urine Total Protein 08/27/18 08/27/18 08/27/18 07:34 08:23 16:31 WBC RBC Hgb Hct MCV MCH RDW Plt Count Boundary % (Auto) Eos % (Auto) Seg Neuts % (Manual) Lymphocytes % (Manual) Monocytes % (Manual) Eosinophils % (Manual) Basophils % (Manual) Seg Neutrophils # Sadi D-Dimer Sodium 135 L Chloride 97.3 L BUN 28 H Creatinine 2.4 H Glucose 130 H POC Glucose 136 H 229 H Hemoglobin A1c Calcium 8.0 L Phosphorus Iron Total Creatine Kinase CK-MB (CK-2) Albumin Bgywp-5-Fagofayxt PEP Interpretation HDL Cholesterol Urine Creatinine Urine Total Protein 08/27/18 08/28/18 08/28/18 21:32 04:40 07:48 WBC RBC Hgb Hct MCV MCH RDW Plt Count Boundary % (Auto) Eos % (Auto) Seg Neuts % (Manual) Lymphocytes % (Manual) Monocytes % (Manual) Eosinophils % (Manual) Basophils % (Manual) Seg Neutrophils # Man D-Dimer Sodium 135 L Chloride 97.9 L BUN 25 H Creatinine 2.2 H Glucose 118 H POC Glucose 142 H 120 H Hemoglobin A1c Calcium Phosphorus Iron Total Creatine Kinase CK-MB (CK-2) Albumin Damzl-5-Lhmpecwdx PEP Interpretation HDL Cholesterol Urine Creatinine Urine Total Protein 08/28/18 08/28/18 08/29/18 17:11 20:52 04:29 WBC RBC Hgb Hct MCV MCH RDW Plt Count Boundary % (Auto) Eos % (Auto) Seg Neuts % (Manual) Lymphocytes % (Manual) Monocytes % (Manual) Eosinophils % (Manual) Basophils % (Manual) Seg Neutrophils # Man D-Dimer Sodium 134 L Chloride 93.3 L BUN 36 H Creatinine 2.9 H Glucose 187 H POC Glucose 209 H 188 H Hemoglobin A1c Calcium Phosphorus Iron Total Creatine Kinase CK-MB (CK-2) Albumin Nttts-9-Fpqdmhszd PEP Interpretation HDL Cholesterol Urine Creatinine Urine Total Protein 08/29/18 08/29/18 08/29/18 08:21 16:54 22:22 WBC RBC Hgb Hct MCV MCH RDW Plt Count Boundary % (Auto) Eos % (Auto) Seg Neuts % (Manual) Lymphocytes % (Manual) Monocytes % (Manual) Eosinophils % (Manual) Basophils % (Manual) Seg Neutrophils # Man D-Dimer Sodium Chloride BUN Creatinine Glucose POC Glucose 144 H 277 H 240 H Hemoglobin A1c Calcium Phosphorus Iron Total Creatine Kinase CK-MB (CK-2) Albumin Sdoix-7-Oiiwhejxp PEP Interpretation HDL Cholesterol Urine Creatinine Urine Total Protein 08/30/18 08/30/18 08/30/18 04:17 04:17 07:56 WBC RBC 3.64 L Hgb 9.8 L Hct 29.6 L MCV 81 L MCH 27 L RDW 16.8 H Plt Count Boundary % (Auto) Eos % (Auto) Seg Neuts % (Manual) Lymphocytes % (Manual) Monocytes % (Manual) Eosinophils % (Manual) Basophils % (Manual) Seg Neutrophils # Man D-Dimer Sodium 133 L Chloride 96.4 L BUN 33 H Creatinine 2.9 H Glucose 142 H POC Glucose 134 H Hemoglobin A1c Calcium Phosphorus Iron Total Creatine Kinase CK-MB (CK-2) Albumin Oexen-7-Lcdxieeux PEP Interpretation HDL Cholesterol Urine Creatinine Urine Total Protein 08/30/18 08/30/18 08/31/18 17:11 20:58 07:57 WBC RBC Hgb Hct MCV MCH RDW Plt Count Boundary % (Auto) Eos % (Auto) Seg Neuts % (Manual) Lymphocytes % (Manual) Monocytes % (Manual) Eosinophils % (Manual) Basophils % (Manual) Seg Neutrophils # Man D-Dimer Sodium Chloride BUN Creatinine Glucose POC Glucose 223 H 238 H 143 H Hemoglobin A1c Calcium Phosphorus Iron Total Creatine Kinase CK-MB (CK-2) Albumin Zrujr-3-Iqcgieqyo PEP Interpretation HDL Cholesterol Urine Creatinine Urine Total Protein 08/31/18 08/31/18 08/31/18 09:06 11:13 16:45 WBC RBC Hgb Hct MCV MCH RDW Plt Count Boundary % (Auto) Eos % (Auto) Seg Neuts % (Manual) Lymphocytes % (Manual) Monocytes % (Manual) Eosinophils % (Manual) Basophils % (Manual) Seg Neutrophils # Sadi D-Dimer Sodium 130 L Chloride 87.5 L BUN 47 H Creatinine 3.5 H Glucose 214 H POC Glucose 223 H 320 H Hemoglobin A1c Calcium Phosphorus Iron Total Creatine Kinase CK-MB (CK-2) Albumin Ijier-3-Nwihjocra PEP Interpretation HDL Cholesterol Urine Creatinine Urine Total Protein 08/31/18 09/01/18 09/01/18 21:48 05:52 07:25 WBC RBC Hgb Hct MCV MCH RDW Plt Count Boundary % (Auto) Eos % (Auto) Seg Neuts % (Manual) Lymphocytes % (Manual) Monocytes % (Manual) Eosinophils % (Manual) Basophils % (Manual) Seg Neutrophils # Sadi D-Dimer Sodium 129 L Chloride 91.1 L BUN 57 H Creatinine 3.5 H Glucose 138 H POC Glucose 197 H 133 H Hemoglobin A1c Calcium Phosphorus Iron Total Creatine Kinase CK-MB (CK-2) Albumin Ozukf-8-Jddcvexko PEP Interpretation HDL Cholesterol Urine Creatinine Urine Total Protein 09/01/18 09/01/18 09/01/18 14:47 16:56 21:24 WBC RBC Hgb Hct MCV MCH RDW Plt Count Boundary % (Auto) Eos % (Auto) Seg Neuts % (Manual) Lymphocytes % (Manual) Monocytes % (Manual) Eosinophils % (Manual) Basophils % (Manual) Seg Neutrophils # Sadi D-Dimer Sodium Chloride BUN Creatinine Glucose POC Glucose 230 H 264 H 233 H Hemoglobin A1c Calcium Phosphorus Iron Total Creatine Kinase CK-MB (CK-2) Albumin Xspuo-2-Ajofbfzlc PEP Interpretation HDL Cholesterol Urine Creatinine Urine Total Protein 09/02/18 09/02/18 09/02/18 06:46 07:55 11:47 WBC RBC Hgb Hct MCV MCH RDW Plt Count Boundary % (Auto) Eos % (Auto) Seg Neuts % (Manual) Lymphocytes % (Manual) Monocytes % (Manual) Eosinophils % (Manual) Basophils % (Manual) Seg Neutrophils # Sadi D-Dimer Sodium 129 L Chloride 92.4 L BUN 42 H Creatinine 3.5 H Glucose 138 H POC Glucose 140 H 186 H Hemoglobin A1c Calcium Phosphorus Iron Total Creatine Kinase CK-MB (CK-2) Albumin Lxgmq-8-Vyvnrzkfm PEP Interpretation HDL Cholesterol Urine Creatinine Urine Total Protein 09/02/18 09/03/18 09/03/18 21:44 07:55 17:07 WBC RBC Hgb Hct MCV MCH RDW Plt Count Boundary % (Auto) Eos % (Auto) Seg Neuts % (Manual) Lymphocytes % (Manual) Monocytes % (Manual) Eosinophils % (Manual) Basophils % (Manual) Seg Neutrophils # Sadi D-Dimer Sodium Chloride BUN Creatinine Glucose POC Glucose 224 H 127 H 249 H Hemoglobin A1c Calcium Phosphorus Iron Total Creatine Kinase CK-MB (CK-2) Albumin Ejkml-2-Rhzptbsbj PEP Interpretation HDL Cholesterol Urine Creatinine Urine Total Protein 09/03/18 09/04/18 09/04/18 21:23 07:52 11:13 WBC RBC Hgb Hct MCV MCH RDW Plt Count Boundary % (Auto) Eos % (Auto) Seg Neuts % (Manual) Lymphocytes % (Manual) Monocytes % (Manual) Eosinophils % (Manual) Basophils % (Manual) Seg Neutrophils # Sadi D-Dimer Sodium Chloride BUN Creatinine Glucose POC Glucose 212 H 118 H 186 H Hemoglobin A1c Calcium Phosphorus Iron Total Creatine Kinase CK-MB (CK-2) Albumin Hbtjp-8-Gmvscerid PEP Interpretation HDL Cholesterol Urine Creatinine Urine Total Protein 09/04/18 09/04/18 09/05/18 16:43 21:32 05:18 WBC RBC Hgb Hct MCV MCH RDW Plt Count Boundary % (Auto) Eos % (Auto) Seg Neuts % (Manual) Lymphocytes % (Manual) Monocytes % (Manual) Eosinophils % (Manual) Basophils % (Manual) Seg Neutrophils # Sadi D-Dimer Sodium 130 L Chloride 91.5 L BUN 47 H Creatinine 4.7 H Glucose 199 H POC Glucose 155 H 235 H Hemoglobin A1c Calcium Phosphorus Iron Total Creatine Kinase CK-MB (CK-2) Albumin Lweut-8-Ppqjspjbx PEP Interpretation HDL Cholesterol Urine Creatinine Urine Total Protein 09/05/18 09/05/18 09/05/18 07:39 16:40 21:24 WBC RBC Hgb Hct MCV MCH RDW Plt Count Boundary % (Auto) Eos % (Auto) Seg Neuts % (Manual) Lymphocytes % (Manual) Monocytes % (Manual) Eosinophils % (Manual) Basophils % (Manual) Seg Neutrophils # Man D-Dimer Sodium Chloride BUN Creatinine Glucose POC Glucose 181 H 242 H 287 H Hemoglobin A1c Calcium Phosphorus Iron Total Creatine Kinase CK-MB (CK-2) Albumin Mmmuv-4-Yoctlqnbt PEP Interpretation HDL Cholesterol Urine Creatinine Urine Total Protein 09/06/18 09/06/18 09/06/18 04:15 08:46 12:32 WBC RBC Hgb Hct MCV MCH RDW Plt Count Boundary % (Auto) Eos % (Auto) Seg Neuts % (Manual) Lymphocytes % (Manual) Monocytes % (Manual) Eosinophils % (Manual) Basophils % (Manual) Seg Neutrophils # Sadi D-Dimer Sodium 132 L Chloride 91.6 L BUN 37 H Creatinine 4.0 H Glucose 191 H POC Glucose 146 H 184 H Hemoglobin A1c Calcium Phosphorus Iron Total Creatine Kinase CK-MB (CK-2) Albumin [id number] PEP Interpretation HDL Cholesterol Urine Creatinine Urine Total Protein 09/06/18 09/06/18 09/07/18 17:18 21:39 04:58 WBC RBC Hgb Hct MCV MCH RDW Plt Count Boundary % (Auto) Eos % (Auto) Seg Neuts % (Manual) Lymphocytes % (Manual) Monocytes % (Manual) Eosinophils % (Manual) Basophils % (Manual) Seg Neutrophils # Sadi D-Dimer Sodium 127 L Chloride 89.2 L BUN 50 H Creatinine 4.5 H Glucose 197 H POC Glucose 169 H 209 H Hemoglobin A1c Calcium Phosphorus Iron Total Creatine Kinase CK-MB (CK-2) Albumin [id number] PEP Interpretation HDL Cholesterol Urine Creatinine Urine Total Protein 09/07/18 09/07/18 09/07/18 07:34 11:24 16:05 WBC RBC Hgb Hct MCV MCH RDW Plt Count Boundary % (Auto) Eos % (Auto) Seg Neuts % (Manual) Lymphocytes % (Manual) Monocytes % (Manual) Eosinophils % (Manual) Basophils % (Manual) Seg Neutrophils # Sadi D-Dimer Sodium 126 L Chloride BUN Creatinine Glucose POC Glucose 168 H 239 H Hemoglobin A1c Calcium Phosphorus Iron Total Creatine Kinase CK-MB (CK-2) Albumin Ibkjf-6-Bmrhslcqb PEP Interpretation HDL Cholesterol Urine Creatinine Urine Total Protein 09/07/18 09/07/18 09/08/18 16:24 21:42 05:39 WBC RBC Hgb Hct MCV MCH RDW Plt Count Boundary % (Auto) Eos % (Auto) Seg Neuts % (Manual) Lymphocytes % (Manual) Monocytes % (Manual) Eosinophils % (Manual) Basophils % (Manual) Seg Neutrophils # Sadi D-Dimer Sodium 128 L Chloride 90.9 L BUN 57 H Creatinine 4.2 H Glucose 154 H POC Glucose 181 H 218 H Hemoglobin A1c Calcium Phosphorus Iron Total Creatine Kinase CK-MB (CK-2) Albumin Ogcse-3-Cmaosbade PEP Interpretation HDL Cholesterol Urine Creatinine Urine Total Protein 09/08/18 09/08/18 09/08/18 07:36 12:54 16:32 WBC RBC Hgb Hct MCV MCH RDW Plt Count Boundary % (Auto) Eos % (Auto) Seg Neuts % (Manual) Lymphocytes % (Manual) Monocytes % (Manual) Eosinophils % (Manual) Basophils % (Manual) Seg Neutrophils # Man D-Dimer Sodium Chloride BUN Creatinine Glucose POC Glucose 147 H 163 H 211 H Hemoglobin A1c Calcium Phosphorus Iron Total Creatine Kinase CK-MB (CK-2) Albumin Uywdi-5-Sxxadjqbt PEP Interpretation HDL Cholesterol Urine Creatinine Urine Total Protein 09/08/18 09/09/18 09/09/18 21:21 04:51 08:23 WBC RBC Hgb Hct MCV MCH RDW Plt Count Boundary % (Auto) Eos % (Auto) Seg Neuts % (Manual) Lymphocytes % (Manual) Monocytes % (Manual) Eosinophils % (Manual) Basophils % (Manual) Seg Neutrophils # Man D-Dimer Sodium 131 L Chloride 94.5 L BUN 41 H Creatinine 3.6 H Glucose 127 H POC Glucose 200 H 132 H Hemoglobin A1c Calcium Phosphorus Iron Total Creatine Kinase CK-MB (CK-2) Albumin Sukmh-1-Uygpneach PEP Interpretation HDL Cholesterol Urine Creatinine Urine Total Protein Allied health notes reviewed: nursing
[2018-09-09] MEDS: VITAMIN D3 PO SCH (10:18)
[2018-09-09] MEDS: COLACE PO SCH (10:18)
[2018-09-09] MEDS: SODIUM CHLORIDE FLUSH SYRINGE 10 ML IV SCH (10:19)
[2018-09-09] MEDS: HEPARIN SUB-Q SCH (10:19)
[2018-09-09] MEDS: BABY ASPIRIN PO SCH (10:19)
--- NOTE | 2018-09-09 11:56 | Discharge Summary ---
Providers - Providers Date of Admission: 08/16/18 03:07 Date of discharge: 09/09/18 Attending physician: JACQUES WALSH 08/16/18 03:17 Consult to Wound/ET Nurse [CONS] Routine Reason For Exam: wound eval 08/16/18 04:14 Consult to Dietitian/Nutrition [CONS] Routine Physician Instructions: Reason For Exam: Reason for Consult: Malnutrition 08/16/18 08:53 Consult to Physician [CONS] Routine Comment: Consulting Provider: WAYNE RENDON Physician Instructions: Reason For Exam: proteinuria, renal failure 08/17/18 09:45 Consult to Physician [CONS] Routine Comment: Consulting Provider: JOHNNA JAIN Physician Instructions: Reason For Exam: Evaluate for VTE 08/19/18 15:14 Physical Therapy Evaluation and Treat [CONS] Routine Comment: Reason For Exam: gen weakness 08/19/18 15:15 Occupational Therapy Evaluate and Treat [CONS] Routine Comment: Reason For Exam: gen weakness 08/22/18 11:23 Consult to Physician [CONS] Routine Comment: Consulting Provider: KAMERON GUAJARDO Physician Instructions: Reason For Exam: permcath placement Primary care physician: VIOLETTA PATTON Hospitalization Condition: Fair Hospital course: Patient is a 58-year-old male with history of hypertension, diabetes, HLD, CKD stage III who presents to [facility] ED with c/o bilateral lower extremity swelling and shortness of breath. 2D ECHO conclusions Global LV systolic function is normal, estimated estimated EF is 55-60%; abnormal LV diastolic dysfunction, mild to moderate concentric LV hypertrophy, trace mr, tr, RVSP calculated at 57 mmHg. He was diagnosed with acute on CKD, initiated on dialysis 08/22/18. He remained dialysis dependent and was diagnosed with end-stage renal disease. Also acute diastolic CHF that has improved with dialysis. After several dialysis sessions, nephrology has determined he needs to be on director long term care dialysis. He is medically stable, dialysis arranged and is being discharged home today 09/09/2018 Acute heart failure with preserved EF. Continue hemodialysis per nephrology. ESRD Started on hemodialysis this admission. Patient had Perm-catheter placed 08/22 and hemodialysis was initiated. Secondary GN workup was negative. Renal ultrasound on 08/16/18- Chronic medical renal disease. No Hydronephrosis. No ACEI or ARB due to advanced renal failure. Renally dose all medications. Avoid Nephrotoxic agents. Outpatient dialysis arranged Anasarca and scrotal edema. Hyponatremia follow-up Elevated D-Dimer. V?Q scan negative Hypotension. Hold hydralazine for now. 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 Right toe pressure ulcer, poa, at least stage 3, heel ulcers bilateral also: local wound care done, continue Wound care Morbid obesity : counseled on lifestyle modification and weight reduction Disposition: DC-01 TO HOME OR SELFCARE - Discharge Diagnoses (1) ESRD (end stage renal disease) on dialysis Status: Acute (2) Sleep apnea with use of continuous positive airway pressure (CPAP) Status: Acute (3) Thrombocytopenia Status: Acute (4) Essential hypertension Status: Chronic (5) Hyperlipemia, mixed Status: Chronic (6) Morbid obesity Status: Chronic (7) Acute on chronic diastolic (congestive) heart failure Status: Acute (8) Hyponatremia Status: Acute Core Measure Documentation - Palliative Care Palliative Care/ Comfort Measures: Not Applicable - Core Measures Any of the following diagnoses?: heart failure - Heart Failure Discharge Requirements KARIN/ARB for LVSD if EF <40%: Not Applicable Beta mathieu at discharge: Yes Exam - Constitutional Vitals: Temp Pulse Resp BP Pulse Ox 98.5 F 69 16 132/64 93 09/09/18 11:09 09/09/18 11:09 09/09/18 11:09 09/09/18 11:09 09/09/18 11:09 Plan Activity: no restrictions Diet: low fat, low cholesterol, low salt, renal Additional Instructions: 1.Follow up with PCP or [facility] in 1 week. 2.To start Hemodialysis 09/09/18 at [facility], continue as per schedule Follow up with: VIOLETTA PATTON MD [Primary Care Provider] - 7 Days Prescriptions: hydrALAZINE [Apresoline TAB] 25 mg PO Q8HR #90 tab Loratadine [Claritin] 10 mg PO DAILY PRN #30 tablet PRN Reason: Allergy Symptoms Carvedilol [Coreg] 3.125 mg PO BID #60 tablet Insulin Regular, Human [HumuLIN R] 5 units SUB-Q AC 30 Days units AtorvaSTATin [Lipitor] 40 mg PO QHS #40 tablet Melatonin [Melatonin 3MG TAB] 3 mg PO QHS #30 tablet Gabapentin [Neurontin] 300 mg PO QHS #30 capsule Omeprazole 20 mg PO DAILY PRN #30 capsule. PRN Reason: Nausea Epoetin Keon 10,000 Unit [Procrit] 10,000 unit SUB-Q MOWEFR 30 Days vial Cholecalciferol (Vitamin D3) [Vitamin D3 5,000 UNIT] 5,000 unit PO DAILY #30 capsule
[2018-09-09] MEDS: COREG PO SCH (12:28)
[2018-09-09 13:22] VITALS: BP 94/50
== END 2018-09-09 15:32 | disposition home or self-care (01) | DRG 673 ==
LOC: ED 17:46 → 4A 08-16 03:07 → 3A 09-01 16:27
PROVIDERS: ADMIT Internal Medicine; ATTEND Internal Medicine
PROC: 5A09357 Assistance with Respiratory Ventilation, Less than 24 Consecutive Hours, Continuous Positive Airway Pressure (ICD-10-PCS; 2018-08-16)
PROC: 5A09357 Assistance with Respiratory Ventilation, Less than 24 Consecutive Hours, Continuous Positive Airway Pressure (ICD-10-PCS; 2018-08-17)
PROC: 5A09357 Assistance with Respiratory Ventilation, Less than 24 Consecutive Hours, Continuous Positive Airway Pressure (ICD-10-PCS; 2018-08-18)
PROC: 5A09357 Assistance with Respiratory Ventilation, Less than 24 Consecutive Hours, Continuous Positive Airway Pressure (ICD-10-PCS; 2018-08-19)
PROC: 5A09357 Assistance with Respiratory Ventilation, Less than 24 Consecutive Hours, Continuous Positive Airway Pressure (ICD-10-PCS; 2018-08-21)
PROC: 0JH63XZ Insertion of Tunneled Vascular Access Device into Chest Subcutaneous Tissue and Fascia, Percutaneous Approach (ICD-10-PCS; principal; 2018-08-22)
PROC: 02HV33Z Insertion of Infusion Device into Superior Vena Cava, Percutaneous Approach (ICD-10-PCS; 2018-08-22)
PROC: B5181ZA Fluoroscopy of Superior Vena Cava using Low Osmolar Contrast, Guidance (ICD-10-PCS; 2018-08-22)
PROC: B548ZZA Ultrasonography of Superior Vena Cava, Guidance (ICD-10-PCS; 2018-08-22)
PROC: 5A09357 Assistance with Respiratory Ventilation, Less than 24 Consecutive Hours, Continuous Positive Airway Pressure (ICD-10-PCS; 2018-08-22)
PROC: 5A1D70Z Performance of Urinary Filtration, Intermittent, Less than 6 Hours Per Day (ICD-10-PCS; 2018-08-22)
PROC: 5A09357 Assistance with Respiratory Ventilation, Less than 24 Consecutive Hours, Continuous Positive Airway Pressure (ICD-10-PCS; 2018-08-23)
PROC: 5A1D70Z Performance of Urinary Filtration, Intermittent, Less than 6 Hours Per Day (ICD-10-PCS; 2018-08-23)
PROC: 5A09357 Assistance with Respiratory Ventilation, Less than 24 Consecutive Hours, Continuous Positive Airway Pressure (ICD-10-PCS; 2018-08-24)
PROC: 5A09357 Assistance with Respiratory Ventilation, Less than 24 Consecutive Hours, Continuous Positive Airway Pressure (ICD-10-PCS; 2018-08-25)
PROC: 5A1D70Z Performance of Urinary Filtration, Intermittent, Less than 6 Hours Per Day (ICD-10-PCS; 2018-08-25)
PROC: 5A09357 Assistance with Respiratory Ventilation, Less than 24 Consecutive Hours, Continuous Positive Airway Pressure (ICD-10-PCS; 2018-08-26)
PROC: 5A1D70Z Performance of Urinary Filtration, Intermittent, Less than 6 Hours Per Day (ICD-10-PCS; 2018-08-26)
PROC: 5A09357 Assistance with Respiratory Ventilation, Less than 24 Consecutive Hours, Continuous Positive Airway Pressure (ICD-10-PCS; 2018-08-27)
PROC: 5A1D70Z Performance of Urinary Filtration, Intermittent, Less than 6 Hours Per Day (ICD-10-PCS; 2018-08-27)
PROC: 5A09357 Assistance with Respiratory Ventilation, Less than 24 Consecutive Hours, Continuous Positive Airway Pressure (ICD-10-PCS; 2018-08-28)
PROC: 5A1D70Z Performance of Urinary Filtration, Intermittent, Less than 6 Hours Per Day (ICD-10-PCS; 2018-08-28)
PROC: 5A09357 Assistance with Respiratory Ventilation, Less than 24 Consecutive Hours, Continuous Positive Airway Pressure (ICD-10-PCS; 2018-08-29)
PROC: 5A1D70Z Performance of Urinary Filtration, Intermittent, Less than 6 Hours Per Day (ICD-10-PCS; 2018-08-29)
PROC: 5A09357 Assistance with Respiratory Ventilation, Less than 24 Consecutive Hours, Continuous Positive Airway Pressure (ICD-10-PCS; 2018-08-30)
PROC: 5A1D70Z Performance of Urinary Filtration, Intermittent, Less than 6 Hours Per Day (ICD-10-PCS; 2018-08-30)
PROC: 5A1D70Z Performance of Urinary Filtration, Intermittent, Less than 6 Hours Per Day (ICD-10-PCS; 2018-09-01)
PROC: 5A1D70Z Performance of Urinary Filtration, Intermittent, Less than 6 Hours Per Day (ICD-10-PCS; 2018-09-02)
PROC: 5A1D70Z Performance of Urinary Filtration, Intermittent, Less than 6 Hours Per Day (ICD-10-PCS; 2018-09-03)
PROC: 5A09357 Assistance with Respiratory Ventilation, Less than 24 Consecutive Hours, Continuous Positive Airway Pressure (ICD-10-PCS; 2018-09-04)
PROC: 5A09357 Assistance with Respiratory Ventilation, Less than 24 Consecutive Hours, Continuous Positive Airway Pressure (ICD-10-PCS; 2018-09-05)
PROC: 5A1D70Z Performance of Urinary Filtration, Intermittent, Less than 6 Hours Per Day (ICD-10-PCS; 2018-09-05)
PROC: 5A09357 Assistance with Respiratory Ventilation, Less than 24 Consecutive Hours, Continuous Positive Airway Pressure (ICD-10-PCS; 2018-09-06)
PROC: 5A09357 Assistance with Respiratory Ventilation, Less than 24 Consecutive Hours, Continuous Positive Airway Pressure (ICD-10-PCS; 2018-09-07)
PROC: 5A09357 Assistance with Respiratory Ventilation, Less than 24 Consecutive Hours, Continuous Positive Airway Pressure (ICD-10-PCS; 2018-09-08)
PROC: 5A1D70Z Performance of Urinary Filtration, Intermittent, Less than 6 Hours Per Day (ICD-10-PCS; 2018-09-08)
DX: N17.9 Acute kidney failure, unspecified (principal); L89.623 Pressure ulcer of left heel, stage 3; I50.33 Acute on chronic diastolic (congestive) heart failure; L89.613 Pressure ulcer of right heel, stage 3; L89.893 Pressure ulcer of other site, stage 3; I13.0 Hypertensive heart and chronic kidney disease with heart failure and stage 1 through stage 4 chronic kidney disease, or unspecified chronic kidney disease; E87.1 Hypo-osmolality and hyponatremia; E44.0 Moderate protein-calorie malnutrition; Z68.43 Body mass index [BMI] 50.0-59.9, adult; R65.10 Systemic inflammatory response syndrome (SIRS) of non-infectious origin without acute organ dysfunction; N18.6 End stage renal disease; E11.22 Type 2 diabetes mellitus with diabetic chronic kidney disease; I16.0 Hypertensive urgency; E66.01 Morbid (severe) obesity due to excess calories; E78.2 Mixed hyperlipidemia; D63.1 Anemia in chronic kidney disease; G47.33 Obstructive sleep apnea (adult) (pediatric); D69.6 Thrombocytopenia, unspecified; I87.2 Venous insufficiency (chronic) (peripheral); I95.9 Hypotension, unspecified; Z79.4 Long term (current) use of insulin
CPT/HCPCS: 36415; 36558; 71045; 71046; 76770; 77001; 78582; 80048; 80053; 80061; 80074; 81001; 82140; 82550; 82553; 82565; 82570; 82575; 82728; 82962; 83036; 83550; 83880; 84100; 84156; 84165; 84166; 84295; 84300; 84484; 84520; 85007; 85025; 85027; 85379; 86038; 86160; 86225; 86334; 86592; 87040; 87806; 89050; 93005; 93010; 93306; 93970; 93975; 94660; 94760; G0378; A9270-GY; A9540; A9558; C1750; J0696; J0885; J1644; J1815; J1940; J2250; J2405; J3010; J7030; J7050

== ENCOUNTER 2018-11-26 12:02 | Day surgery (SDC) | payer MEDICARE ==
[~2018-11-26 12:02] MED LIST: ANCEF/STERILE WATER 2 GM/20 ML 2 GM/20 ML SYRINGE IV NR; HEPARIN 10,000 UNITS/10 ML IV ONE; MARCAINE 0.5% INFILTRATI ONE; NACL 0.9% 1000 ML 1,000 ML IV SCH; NACL 0.9% 500 ML IV ONE; NACL 0.9% IR ONE
[2018-11-26] MEDS ORDERED: PEPCID IV NR (13:12)
[2018-11-26] MEDS ORDERED: SUBLIMAZE IV PRN (13:12)
--- NOTE | 2018-11-26 13:15 | Anesthesia Consultation ---
Anesthesia Consult and Med Hx Date of service: 11/26/18 - Airway Anesthetic Teeth Evaluation: Good ROM Head & Neck: Adequate Mental/Hyoid Distance: Inadequate Mallampati Class: Class III Intubation Access Assessment: Possibly Difficult - Pulmonary Exam CTA: Yes - Cardiac Exam Cardiac Exam: RRR - Pre-Operative Health Status ASA Pre-Surgery Classification: ASA4 Proposed Anesthetic Plan: MAC - Pulmonary Hx Smoking: No Hx Respiratory Symptoms: Yes (stable 1-2 pillow orthopnea) Hx Sleep Apnea: Yes (compliant with CPAP) - Cardiovascular System Hx Hypertension: Yes (took antihypertensives this morning) Hx Heart Attack/AMI: No (normal EF on recent TTE) Hx Percutaneous Transluminal Coronary Angioplasty (PTCA): No Hx Cardia Arrhythmia: No Hx Valvular Heart Disease: No - Central Nervous System Hx Seizures: No CVA: No Hx Back Pain: Yes (Upper) Hx Psychiatric Problems: Yes (depression/anxiety) - Gastrointestinal Hx Gastroesophageal Reflux Disease: Yes - Endocrine Hx End Stage Renal Disease: Yes (last HD 11/25/18) Hx Liver Disease: No Hx Insulin Dependent Diabetes: Yes Hx Thyroid Disease: No - Hematic Hx Anemia: Yes - Other Systems Hx Obesity: Yes (BMI 45)
--- NOTE | 2018-11-26 13:19 | Anesthesia Day of Surgery ---
Anesthesia Day of Surgery - Day of Surgery Patient Examined: Yes Patient H&P Reviewed: Yes Patient is NPO: Yes Beta Blockers: Yes
[2018-11-26] MEDS ORDERED: HEPARIN 10,000 UNITS/10 ML ONE (13:38)
[2018-11-26] MEDS ORDERED: MARCAINE 0.5% INFILTRATI ONE (13:39)
[2018-11-26] MEDS ORDERED: NACL 0.9% 500 ML 500 ML ONE (13:39)
[2018-11-26] MEDS ORDERED: XYLOCAINE 1%/ EPI 1:100,000 INFILTRATI ONE ×3 (13:40→14:43)
[2018-11-26] MEDS ORDERED: DEXMEDETOMIDINE IV ONE (13:48)
[2018-11-26] MEDS ORDERED: HumuLIN R IV SCH (14:00)
[2018-11-26] MEDS ORDERED: VERSED IV NR (14:00)
[2018-11-26] MEDS ORDERED: SUBLIMAZE ONE (14:20)
[2018-11-26] MEDS ORDERED: HEPARIN 10,000 UNITS/10 ML IV ONE (15:08)
[2018-11-26] MEDS ORDERED: NACL 0.9% 500 ML IV ONE (15:08)
[2018-11-26] MEDS ORDERED: NACL 0.9% IR ONE (15:22)
--- NOTE | 2018-11-26 16:01 | Operative Report ---
Operative Report Operative Report: Date of procedure: 11/26/2018 Pre-operative diagnosis: Stage renal disease stage V in need of hemodialysis access Post-operative diagnosis: Same Procedure name(s): Left forearm transposed cephalic vein to radial artery hemodialysis fistula Surgeon: Mino Miller MD Stitch Bonder Machine Operator Helper: Francis Emmanuel PA-C Anesthesia: LMAC EBL: Minimal Specimen(s): None Complications: None Findings: Adequate caliber cephalic vein. Radial artery slightly small but good thrill and bruit in fistula at the completion of the anastomosis. Procedure: Patient in supine position with the left arm extended the entire extremity was prepped and draped using standard sterile technique. Cephalic vein was of good quality and was easily marked in the distal forearm. A longitudinal incision was made overlying that vessel and carried down through the subcutaneous tissue and the vessel was mobilized for several centimeters. The distal end was divided at a branch point thus creating a [place] patch. A second incision was made over the volar aspect of the wrist overlying the radial artery and carried down through necessary skin. Radial artery was delineated from surrounding tissue and encircled using vessel loops. A subcutaneous tunnel superficial to the dorsal sensory branch of the radial nerve was then created. Mobilized vein was then marked for rotation, hydrodilated ,and then brought through the tunnel in a nonrotational fashion. I determined exactly where the anastomosis should be and then occluded the radial artery with vessel clamps. A longitudinal arteriotomy was then made and then subsequently an end-to-side anastomosis was created using 6-0 Prolene suture in running technique. Prior to the completion of the suture line antegrade and retrograde flushing was performed. The suture line was completed and flow was released initially retrograde into the fistula then antegrade into the fistula and then returned to the hand. Fistula developed a nice thrill and bruit and hemostasis was excellent. I evaluated several side branches more proximally in the arm for l igation but none appeared to require that maneuver. The incision was blocked using Marcaine and closed in layers using 3-0 Vicryl subcutaneous for Monocryl subcuticular. Skin was glued with demabond. Patient was returned to the recovery room in stable condition having tolerated the procedure well. Counts correct.
--- NOTE | 2018-11-26 16:07 | Short Stay Summary ---
Short Stay Documentation Date of service: 11/26/18 Narrative H&P: He is admitted to the operative suite for outpatient creation of a hemodialysis fistula in his left forearm - History H&P: obtained from office - Allergies and Medications Current Medications: Allergies canagliflozin [From Invokana] Allergy (Verified 11/25/18 16:17) Unknown IV CONTRAST DYE Allergy (Uncoded 11/25/18 16:17) Unknown Home Medications Medication Instructions Recorded Confirmed Last Taken Type Doxylamine Succinate [Unisom] 25 mg PO QHS 08/16/18 11/26/18 Unknown History Triamcinolone Acetonide [Nasacort 10.8 ml NS DAILY 08/16/18 11/26/18 11/24/18 History SPRAY] Aspirin [Aspirin BABY CHEW TAB] 81 mg PO QDAY tab.chew 09/03/18 11/26/18 Unknown Rx AtorvaSTATin [Lipitor] 40 mg PO QHS #40 tablet 09/03/18 11/26/18 11/26/18 09:00 Rx Gabapentin [Neurontin] 300 mg PO QHS #30 capsule 09/03/18 11/26/18 11/26/18 09:00 Rx Loratadine [Claritin] 10 mg PO DAILY PRN #30 tablet 09/03/18 11/26/18 11/26/18 09:00 Rx Melatonin [Melatonin 3MG TAB] 3 mg PO QHS #30 tablet 09/03/18 11/26/18 Unknown Rx Nitroglycerin [Nitrostat] 0.4 mg SL .Q5MIN PRN tablet 09/03/18 11/26/18 Unknown Rx Omeprazole 20 mg PO DAILY PRN #30 capsule. 09/03/18 11/26/18 11/26/18 09:00 Rx Carvedilol [Coreg] 6.25 mg PO BID 11/26/18 11/26/18 11/26/18 09:00 History Furosemide [Lasix TAB] 80 mg PO QDAY 11/26/18 11/26/18 11/26/18 09:00 History Lispro Insulin [HumaLOG] 75 unit SUB-Q BID 11/26/18 11/26/18 11/25/18 History hydrALAZINE [Apresoline TAB] 10 mg PO TID 11/26/18 11/26/18 11/26/18 09:00 History Active Medications Famotidine (Pepcid) 20 mg IV ONCE NR Stop: 11/26/18 18:00 Last Admin: 11/26/18 13:45 Dose: 20 mg Documented by: Fentanyl (Sublimaze) 50 mcg IV Q5MIN PRN PRN Reason: Pain , Severe (7-10) Stop: 11/26/18 20:00 Sodium Chloride (Nacl 0.9% 1000 Ml) 1,000 mls @ 42 mls/hr IV DIRECT ARLENE Last Admin: 11/26/18 12:54 Dose: 42 mls/hr Documented by: Cefazolin Sodium (Ancef/Sterile Water 2 Gm/20 Ml) 2 gm in 20 mls @ 80 mls/hr IV PREOP NR; Protocol Stop: 11/26/18 23:59 Midazolam HCl (Versed) 2 mg IV PREOP NR Stop: 11/26/18 23:59 Last Admin: 11/26/18 13:45 Dose: 2 mg Documented by: - Brief post op/procedure progress note Date of procedure: 11/26/18 Procedure: Pre-operative diagnosis: Stage renal disease stage V in need of hemodialysis access Post-operative diagnosis: Same Procedure name(s): Left forearm transposed cephalic vein to radial artery hemodialysis fistula Surgeon: Mino Miller MD Pondman: Francis Emmanuel PA-C Anesthesia: LMAC EBL: Minimal Specimen(s): None Complications: None Findings: Adequate caliber cephalic vein. Radial artery slightly small but good thrill and bruit in fistula at the completion of the anastomosis. Procedure: Patient in supine position with the left arm extended the entire extremity was prepped and draped using standard sterile technique. Cephalic vein was of good quality and was easily marked in the distal forearm. A longitudinal incision was made overlying that vessel and carried down through the subcutaneous tissue and the vessel was mobilized for several centimeters. The distal end was divided at a branch point thus creating a [place] patch. A second incision was made over the volar aspect of the wrist overlying the radial artery and carried down through necessary skin. Radial artery was delineated from surrounding tissue and encircled using vessel loops. A subcutaneous tunnel superficial to the dorsal sensory branch of the radial nerve was then created. Mobilized vein was then marked for rotation, hydrodilated ,and then brought through the tunnel in a nonrotational fashion. I determined exactly where the anastomosis should be and then occluded the radial artery with vessel clamps. A longitudinal arteriotomy was then made and then subsequently an end-to-side anastomosis was created using 6-0 Prolene suture in running technique. Prior to the completion of the suture line antegrade and retrograde flushing was performed. The suture line was completed and flow was released initially retrograde into the fistula then antegrade into the fistula and then returned to the hand. Fistula developed a nice thrill and bruit and hemostasis was excellent. I evaluated several side branches more proximally in the arm for ligation but none appeared to require that maneuver. The incision was blocked using Marcaine and closed in layers using 3-0 Vicryl subcutaneous for Monocryl subcuticular. Skin was glued with demabond. Patient was returned to the recovery room in stable condition having tolerated the procedure well. Counts correct. - Hospital course Hospital course: Unremarkable - Disposition Condition at discharge: Good Disposition: DC-01 TO HOME OR SELFCARE - Discharge Diagnoses (1) ESRD (end stage renal disease) on dialysis Status: Chronic Short Stay Discharge Plan Activity: advance as tolerated Weight Bearing Status: Full Weight Bearing Diet: renal Wound: keep clean and dry Special Instructions: follow up in rehab, no heavy lifting Follow up with: VIOLETTA PATTON MD [Primary Care Provider] - 7 Days MINO MILLER MD [Staff Physician] - 14 Days Prescriptions: HYDROcodone/APAP 5-325 [Verdi 5-325 mg TAB] 1 each PO Q4HR PRN #25 tablet PRN Reason: Pain, Moderate (4-6)
[2018-11-26 18:33] VITALS: BP 116/60
--- NOTE | 2018-11-27 09:24 | Post Anesthesia Evaluation ---
- Post Anesthesia Evaluation Patient Participated: Yes Airway Patent: Yes Stable Respiratory Function: Yes Nausea/Vomiting: No Temp > 96.8F: Yes Pain Manageable: Yes Adequeate Hydration: Yes Anesthesia Complications: No Block Receding Appropriately: Not Applicable Patient on Ventilator: No
== END 2018-11-26 18:00 | disposition home or self-care (01) ==
LOC: OR 12:02
PROVIDERS: ATTEND Surgery Vascular Surgery
DX: I13.2 Hypertensive heart and chronic kidney disease with heart failure and with stage 5 chronic kidney disease, or end stage renal disease (principal); E11.22 Type 2 diabetes mellitus with diabetic chronic kidney disease; N18.6 End stage renal disease; I50.33 Acute on chronic diastolic (congestive) heart failure; E66.01 Morbid (severe) obesity due to excess calories; D64.9 Anemia, unspecified; G47.33 Obstructive sleep apnea (adult) (pediatric); D69.6 Thrombocytopenia, unspecified; I87.2 Venous insufficiency (chronic) (peripheral); G62.9 Polyneuropathy, unspecified; E78.00 Pure hypercholesterolemia, unspecified; K21.9 Gastro-esophageal reflux disease without esophagitis; F32.9 Major depressive disorder, single episode, unspecified; F41.9 Anxiety disorder, unspecified; Z72.89 Other problems related to lifestyle; Z98.890 Other specified postprocedural states; Z79.82 Long term (current) use of aspirin; Z79.4 Long term (current) use of insulin; Z88.8 Allergy status to other drugs, medicaments and biological substances
CPT/HCPCS: 36818; 82803; 82962; J0690; J1644; J2250; J3010; J3490; J7030; J7040; J1815